=== PATIENT | male | born 1940 | race Native Hawaiian/Other Pacific Islander ===

== ENCOUNTER 2016-10-08 17:56 | Inpatient (IN) | payer MEDICARE, OTHER ==
[2016-10-08] MEDS ORDERED: Sodium Chloride 0.9% 500 ML IV STA ×2 (18:26→19:37)
[2016-10-08 19:05] LABS: VENOUS BLOOD GAS BASE EXCESS -4.4 mmol/L (0.0-2.0)
[2016-10-08 19:08] LABS: BASO # 0.1 K/uL (0.0-0.2); BASO % 0.4 % (0.0-2.0); EOS % 0.1 % (0.0-4.0); HEMATOCRIT 39.7 % (35.0-51.0); LYMPH # 1.2 K/uL (1.0-4.3); LYMPH % 4.1 % (20.0-40.0); MEAN CELL VOLUME 85.1 fl (80.0-94.0); MONO # 1.4 K/uL (0.0-0.8); MONO % 4.6 % (0.0-10.0); NEUT # 27.6 K/uL (1.8-7.0); NEUT % 90.8 % (50.0-75.0); PLATELET COUNT 234 K/uL (130-400); RED CELL DISTRIBUTION WIDTH 14.8 % (11.5-14.5); WHITE BLOOD COUNT 30.4 K/uL (4.8-10.8)
[2016-10-08] MEDS ORDERED: Digoxin 500 mcg/2ml (0.5 mg/2ml) Inj IVP ONE (19:13)
[2016-10-08 19:27] LABS: BILIRUBIN,TOTAL 1.1 mg/dl (0.2-1.3); CALCIUM 9.6 mg/dL (8.4-10.2); MAGNESIUM 1.5 MG/DL (1.6-2.3); PHOSPHOROUS 3.6 mg/dl (2.5-4.5); POTASSIUM 4.2 MMOL/L (3.6-5.0)
[2016-10-08] MEDS ORDERED: Digoxin 500 mcg/2ml (0.5 mg/2ml) Inj ONE (19:28)
[2016-10-08] MEDS ORDERED: Piperacillin/Tazobact 3.375 GM in Sodium Chloride 0.9% 100 ML IV STA (19:36)
[2016-10-08 19:42] LABS: TROPONIN I 0.047 ng/mL (0.00-0.120)
[2016-10-08 19:46] LABS: PARTIAL THROMBOPLASTIN TIME 29.7 Seconds (25.6-37.1)
[2016-10-08 20:01] LABS: RBC URINE 21 /hpf (0-3); URINE BACTERIA RARE (<OCC); URINE BILIRUBIN NEGATIVE (NEGATIVE); URINE BLOOD MODERATE (NEGATIVE); URINE COLOR YELLOW (YELLOW); URINE GLUCOSE (UA) NEG (Normal); URINE KETONE NEGATIVE (NEGATIVE); URINE LEUKOCYTE ESTERASE LARGE Leu/uL (Negative); URINE PROTEIN 30 mg/dL (NEGATIVE); URINE UROBILINOGEN 0.2-1.0 mg/dL (0.2-1.0); WBC URINE 155 /hpf (0-5)
--- NOTE | 2016-10-08 20:24 | ED PDOC ---
HPI: Abdomen Time Seen by Provider: 10/08/16 18:17 Chief Complaint (Nursing): Abdominal Pain Chief Complaint (Provider): Abdominal Pain History Per: Patient History/Exam Limitations: no limitations Onset/Duration Of Symptoms: Days (x2) Additional Complaint(s): Julio Jackson is a 76 year old male who presents to the emergency department with a complaint of abdominal pain associated with distention, decreased appetite, constipation, sweats, malaise, fatigue, lightheadedness, and shortness of breath ongoing for 2 days. Denied any nausea, vomiting, diarrhea, chest pain, dysuria, or hematuria. PMD: Guillermo Onofre MD Past Medical History Reviewed: Historical Data, Nursing Documentation, Vital Signs Vital Signs: Last Vital Signs Temp 97.7 F 10/08/16 23:18 Pulse 70 10/08/16 23:18 Resp 18 10/08/16 23:18 BP 106/54 L 10/08/16 23:18 Pulse Ox 99 10/08/16 23:18 - Medical History PMH: Atrial Fibrillation, CAD, Diabetes, HTN, Hypercholesterolemia ( hyperlipidemia), Hyperlipidemia, Pneumonia (recently diagnosed) Denies: Chronic Kidney Disease - Surgical History Surgical History: CABG - Family History Family History: States: Unknown Family Hx - Social History Current smoker - smoking cessation education provided: Yes Alcohol: None Drugs: Denies - Immunization History Hx Tetanus Toxoid Vaccination: No - Home Medications Home Medications: Ambulatory Orders Medication Instructions Recorded Aspirin [Lo-Dose Aspirin EC] 81 mg PO 10/08/16 Atorvastatin [Lipitor] 10 mg PO DAILY 10/08/16 Cholecalciferol (Vitamin D3) 400 units PO DAILY 10/08/16 [Vitamin D-400] Enalapril Maleate [Vasotec] 5 mg PO DAILY 10/08/16 Glimepiride [amaRYL] 2 mg PO DAILY 10/08/16 Multivitamin [Multivitamins] 1 tab PO DAILY 10/08/16 - Allergies Allergies/Adverse Reactions: Allergies Allergy/AdvReac Type Severity Reaction Status Date / Time azithromycin Allergy ITCHING Verified 10/08/16 18:10 moxifloxacin [From Avelox] Allergy ITCHING Verified 10/08/16 18:10 Review of Systems ROS Statement: Except As Marked, All Systems Reviewed And Found Negative (and as per HPI) Constitutional: Positive for: Sweats, Malaise, Other (fatigue) Cardiovascular: Negative for: Chest Pain Respiratory: Positive for: Shortness of Breath Gastrointestinal: Positive for: Abdominal Pain (with distention), Constipation ( chronic condition), Other (decreased appetite). Negative for: Nausea, Vomiting , Diarrhea Genitourinary Male: Negative for: Dysuria, Hematuria Neurological: Positive for: Other (lightheaded) Physical Exam - Physical Exam Appears: Positive for: Non-toxic, In Acute Distress Head Exam: Positive for: ATRAUMATIC, NORMOCEPHALIC Skin: Positive for: Warm, Dry Eye Exam: Positive for: EOMI, PERRL ENT: Positive for: Other (dry muc membranes) Neck: Positive for: Painless ROM, Supple Cardiovascular/Chest: Positive for: Tachycardia. Negative for: Edema, Murmur Respiratory: Positive for: Normal Breath Sounds. Negative for: Respiratory Distress Gastrointestinal/Abdominal: Positive for: Bowel Sounds (hypoactive), Soft, Tenderness (diffuse). Negative for: Mass, Distended, Guarding, Rebound Back: Positive for: L CVA Tenderness, R CVA Tenderness. Negative for: Muscle Spasm Extremity: Positive for: Normal ROM. Negative for: Deformity Lymphatic: Negative for: Adenopathy Neurologic/Psych: Positive for: Alert. Negative for: Motor/Sensory Deficits - Laboratory Results Result Diagrams: 10/08/16 18:58 10/08/16 18:58 - ECG O2 Sat by Pulse Oximetry: 97 (RA) Pulse Ox Interpretation: Normal - Progress Re-evaluation Time: 22:49 Condition: Improving,but remains with symptoms - Critical Care Total Time (In Min): 30 Documented Critical Care: Time excludes all time spent performint seperately billable procedures Medical Decision Making Medical Decision Making: Initial Impression: Abdominal pain; Fever; Atrial flutter Differential diagnosis: Mesenteric ischemia; pancreatitis; bowel obstruction; colitis; sepsis; dehydration Initial Plan: * VBG * CT ABD/Pelvis with IV contrast * CT ABD/Pelvis without contrast * EKG * Labs * CXR * Tylenol 975mg PO * Lanoxin 0.5mg IVP * Motrin 600mg PO * NS 500ml IV per 500mls/hr * Zosyn 100ml IV * Blood culture * Urine culture * Xray ABD * Re-evaluation Time: 1850 --Discussed case with Dr. Onofre who advised Digoxin for rate control and pt will be admitted to hospital pending ED workup. Labs demonstrate leukocytosis with bandemia, elevation in creatinine. Lactic acid wnl. UA c/w UTI. Antibiotics ordered Time: 2037 CT Abd/Pelvis FINDINGS: LIMITATIONS: Mild to moderate streak/motion artifact. LOWER THORAX: Multiple ill-defined nodular densities of varying sizes are seen in the right lung base. Findings are suspicious for a multinodular type pneumonia/infiltrate, however, recommend followup to document clearing. Mild cardiomegaly. Coronary artery calcification. ABDOMEN: LIVER: No acute abnormality of the liver identified. GALLBLADDER AND BILE DUCTS: Biliary ductal dilatation, with the common bile duct measuring up to 9 mm in diameter. No cause for this finding is seen by CT. Recommend correlation with LFTs for laboratory evidence of biliary obstruction. Cholelithiasis. Multiple stones are seen in the gallbladder neck. No CT evidence of acute cholecystitis. PANCREAS: No CT evidence of acute pancreatitis. SPLEEN: No acute abnormality of the spleen identified. ADRENALS: No acute abnormality of the adrenal glands identified. KIDNEYS AND URETERS: Mild right hydroureteronephrosis. There is also right perinephric fluid, moderate in amount. No causative obstructing stone is seen. Surgical clip is noted in the right kidney. No obstructing ureteral or UVJ stones are visualized. STOMACH AND BOWEL: Duodenal diverticulum noted. Scattered colonic diverticulosis, without evidence of diverticulitis. Otherwise, no significant abnormality of the bowel is identified. No evidence of bowel obstruction. APPENDIX: Appendix is seen, and is within normal limits in appearance. PELVIS: BLADDER: Mild thickening of the bladder wall. REPRODUCTIVE: Enlarged prostate gland, which indents the base of the bladder. ABDOMEN and PELVIS: INTRAPERITONEAL SPACE: No evidence of free intraperitoneal air or fluid. BONES/JOINTS: Bony structures appear demineralized. SOFT TISSUES: No acute abnormality of the visualized soft tissues is seen. VASCULATURE: Linear calcifications are seen in the lumen of the abdominal aorta, which are most likely secondary to either calcified mural thrombus or a chronic, calcified aortic dissection. No evidence of aortic rupture or periaortic hemorrhage. LYMPH NODES: No evidence of diffuse lymphadenopathy. IMPRESSION: -Findings in the right lung base suspicious for a multinodular type pneumonia. Followup is recommended to document clearing, and definitely rule out a neoplastic process. - Right perinephric fluid and hydroureteronephrosis, cause not identified. Findings could be secondary to a recently passed stone. A right sided urinary tract infection could also have this appearance. There is also bladder wall thickening, a nonspecific finding, but can be seen with cystitis. Recommend clinical correlation. -Biliary ductal dilatation, with the common bile duct measuring up to 9 mm in diameter. No cause for this finding is seen by CT. Recommend correlation with LFTs for laboratory evidence of biliary obstruction. Previous xray also demonstrated abnormalities in RIGHT lung field. DW pt and family findings and plan of care. Addn'l US ordered since pt has h/o gallstones. DW Dr Onofre again for hospitalization. Orders given to JACQUI Boone Repeat EKG demonstrates NSR at 72 Time: 2207 --US ABD FINDINGS: Gallbladder: Contains extensive shadowing gallstones, which were reportedly mobile on real time, as well as sludge. No significant gallbladder wall thickening noted. No evidence of pericholecystic fluid. Reportedly negative sonographic Lassiter's sign. Common bile duct: Abnormally dilated, measuring up to 9 mm in diameter. No common bile duct stones are visualized. Liver: Within normal limits in appearance. Normal flow seen in the main portal vein on color imaging. Measures 13 cm in length. Pancreas: Incompletely seen due to gas. Imaged portions appear unremarkable. Right kidney: Within normal limits in appearance. Measures 10.7 cm in length. No evidence of hydronephrosis. IMPRESSION: Mild dilatation of the common bile duct, cause not identified. Gallstones. No sonographic evidence of acute cholecystitis. See above for remaining findings On reeval pt feeling a little better and eager to eat. Scribe Attestation: Documented by Magda Garland, acting as a scribe for Margaret Jarvis MD. Provider Scribe Attestation: All medical record entries made by the Scribe were at my direction and personally dictated by me. I have reviewed the chart and agree that the record accurately reflects my personal performance of the history, physical exam, medical decision making, and the department course for this patient. I have also personally directed, reviewed, and agree with the discharge instructions and disposition. Disposition - Clinical Impression Clinical Impression: Atrial flutter, Pyelonephritis, Sepsis Counseled Patient/Family Regarding: Studies Performed, Diagnosis - Disposition Disposition Time: 21:00 Condition: FAIR - Pt Status Changed To: Hospital Disposition Of: Inpatient - Admit Certification Admit to Inpatient:: After my assessment, the patient will require hospitalization for at least two midnights. This is because of the severity of symptoms shown, intensity of services needed, and/or the medical risk in this patient being treated as an outpatient. - POA Present On Arrival: None
--- NOTE | 2016-10-08 20:39 | CT ---
EXAM: CT Abdomen and Pelvis Without Intravenous Contrast EXAM DATE/TIME: 10/08/2016 7:49 PM CLINICAL HISTORY: 76 years old, male; Pain; Abdominal pain; Generalized; Patient HX: Gallstones; Additional info: Abd pain leukocytosis dehydration afib TECHNIQUE: Axial computed tomography images of the abdomen and pelvis without intravenous contrast. All CT scans at this facility use one or more dose reduction techniques, viz.: automated exposure control; ma/kV adjustment per patient size (including targeted exams where dose is matched to indication; i.e. head); or iterative reconstruction technique. Coronal and sagittal reformatted images were created and reviewed. COMPARISON: No relevant prior studies available. FINDINGS: LIMITATIONS: Mild to moderate streak/motion artifact. LOWER THORAX: Multiple ill-defined nodular densities of varying sizes are seen in the right lung base. Findings are suspicious for a multinodular type pneumonia/infiltrate, however, recommend followup to document clearing. Mild cardiomegaly. Coronary artery calcification. ABDOMEN: LIVER: No acute abnormality of the liver identified. GALLBLADDER AND BILE DUCTS: Biliary ductal dilatation, with the common bile duct measuring up to 9 mm in diameter. No cause for this finding is seen by CT. Recommend correlation with LFTs for laboratory evidence of biliary obstruction. Cholelithiasis. Multiple stones are seen in the gallbladder neck. No CT evidence of acute cholecystitis. PANCREAS: No CT evidence of acute pancreatitis. SPLEEN: No acute abnormality of the spleen identified. ADRENALS: No acute abnormality of the adrenal glands identified. KIDNEYS AND URETERS: Mild right hydroureteronephrosis. There is also right perinephric fluid, moderate in amount. No causative obstructing stone is seen. Surgical clip is noted in the right kidney. No obstructing ureteral or UVJ stones are visualized. STOMACH AND BOWEL: Duodenal diverticulum noted. Scattered colonic diverticulosis, without evidence of diverticulitis. Otherwise, no significant abnormality of the bowel is identified. No evidence of bowel obstruction. APPENDIX: Appendix is seen, and is within normal limits in appearance. PELVIS: BLADDER: Mild thickening of the bladder wall. REPRODUCTIVE: Enlarged prostate gland, which indents the base of the bladder. ABDOMEN and PELVIS: INTRAPERITONEAL SPACE: No evidence of free intraperitoneal air or fluid. BONES/JOINTS: Bony structures appear demineralized. SOFT TISSUES: No acute abnormality of the visualized soft tissues is seen. VASCULATURE: Linear calcifications are seen in the lumen of the abdominal aorta, which are most likely secondary to either calcified mural thrombus or a chronic, calcified aortic dissection. No evidence of aortic rupture or periaortic hemorrhage. LYMPH NODES: No evidence of diffuse lymphadenopathy. IMPRESSION: - Findings in the right lung base suspicious for a multinodular type pneumonia. Followup is recommended to document clearing, and definitely rule out a neoplastic process. - Right perinephric fluid and hydroureteronephrosis, cause not identified. Findings could be secondary to a recently passed stone. A right sided urinary tract infection could also have this appearance. There is also bladder wall thickening, a nonspecific finding, but can be seen with cystitis. Recommend clinical correlation. - Biliary ductal dilatation, with the common bile duct measuring up to 9 mm in diameter. No cause for this finding is seen by CT. Recommend correlation with LFTs for laboratory evidence of biliary obstruction. - See above for remaining findings.
[2016-10-08 20:41] LABS: BASOPHIL 1 % (0-2); NEUTROPHIL 78 % (42-75); TOTAL CELLS COUNTED 100
--- NOTE | 2016-10-08 22:08 | US ---
EXAM: US Abdomen Limited, Right Upper Quadrant EXAM DATE/TIME: 10/08/2016 8:47 PM CLINICAL HISTORY: 76 years old, male; Pain; Abdominal pain; Epigastric; Additional info: Cbd dilatation fever abd pain TECHNIQUE: Real-time ultrasound of the right upper quadrant with image documentation. COMPARISON: Recent abdominal CT. FINDINGS: Gallbladder: Contains extensive shadowing gallstones, which were reportedly mobile on real time, as well as sludge. No significant gallbladder wall thickening noted. No evidence of pericholecystic fluid. Reportedly negative sonographic Lassiter's sign. Common bile duct: Abnormally dilated, measuring up to 9 mm in diameter. No common bile duct stones are visualized. Liver: Within normal limits in appearance. Normal flow seen in the main portal vein on color imaging. Measures 13 cm in length. Pancreas: Incompletely seen due to gas. Imaged portions appear unremarkable. Right kidney: Within normal limits in appearance. Measures 10.7 cm in length. No evidence of hydronephrosis. IMPRESSION: Mild dilatation of the common bile duct, cause not identified. Gallstones. No sonographic evidence of acute cholecystitis. See above for remaining findings.
[2016-10-08 22:26] LABS: VENOUS BLOOD GAS PCO2 28 mmHg (40-60); VENOUS BLOOD PH 7.43 (7.32-7.43)
[2016-10-09] MEDS: Sodium Chloride 0.9% 500 ML IV SCH ×3 (02:28→23:31)
[2016-10-09 07:22] LABS: BASO % 0.1 % (0.0-2.0); EOS % 0.1 % (0.0-4.0); HEMATOCRIT 38.1 % (35.0-51.0); LYMPH # 1.2 K/uL (1.0-4.3); LYMPH % 3.6 % (20.0-40.0); MEAN CELL VOLUME 86.8 fl (80.0-94.0); MEAN CORPUSCULAR HEMOGLOBIN 28.8 pg (27.0-31.0); MEAN CORPUSCULAR HGB CONC 33.2 g/dL (33.0-37.0); MEAN PLATELET VOLUME 7.3 fl (7.2-11.7); MONO # 0.8 K/uL (0.0-0.8); MONO % 2.4 % (0.0-10.0); NEUT # 31.4 K/uL (1.8-7.0); NEUT % 93.8 % (50.0-75.0); PLATELET COUNT 191 K/uL (130-400); WHITE BLOOD COUNT 33.4 K/uL (4.8-10.8)
[2016-10-09 07:32] LABS: BILIRUBIN,TOTAL 1.5 mg/dl (0.2-1.3); CALCIUM 8.7 mg/dL (8.4-10.2); POTASSIUM 4.1 MMOL/L (3.6-5.0); TOTAL PROTEIN 7.1 G/DL (6.3-8.2)
[2016-10-09 08:03] LABS: NEUTROPHIL 84 % (42-75); TOTAL CELLS COUNTED 100
[2016-10-09] MEDS ORDERED: Patient's Own Med (Multivitamin [Multivitamins] 1 TAB) PO SCH (09:00)
--- NOTE | 2016-10-09 09:18 | CP.PCM.HP ---
History of Present Illness - History of Present Illness History of Present Illness: This 76-year-old man with known coronary artery disease who had coronary bypass graft surgery more than 15 years back following a myocardial infarction was hospitalized yesterday when he came to the emergency room complaining of profuse perspiration and severe abdominal and lower back pain. He denies any chills or dysuria. He has a history of COPD because of a long history of cigarette use in the past and the patient has had recurrent bouts of bronchitis and was hospitalized here and a half back with pneumonia. The patient is a diabetic and hypertensive as well. A stress test approximately a year back did not show any evidence of potentially ischemic myocardium. The patient has never experienced congestive cardiac failure. The patient had had a bout of atrial fibrillation during his hospitalization for pneumonia year and a half back. Subsequently he has maintained sinus rhythm. Physical examination shows a elderly thin built man who is quite alert of a concordant. He is afebrile. His pulse rate was 70 bpm and regular. His blood pressure was 146/70 mmHg. His jugular venous pressure was not elevated there was no pedal edema. His pedal pulses were feeble. There were no carotid bruits. His extremities are warm, his nailbeds were pink. There was no central or peripheral cyanosis. There was no clubbing. There was a severe right knee deformity because of a childhood injury. A scar of sternotomy was evident on his chest. The apex was not palpable. The first and second heart sounds were normal. There was a brief apical systolic murmur. There was no gallop rhythm. There were no rales. His abdomen was soft. Vague tenderness was described. There was no guarding or rigidity. There was no mass. There was no right hypochondrial tenderness. The patient described a vague sense of pain in both renal angles. There was no suprapubic tenderness. His electrocardiogram in the emergency showed atrial flutter with 2 to one conduction and a heart rate of 155 bpm. There was evidence of a right bundle branch block. There were ST-T changes due to right bundle branch block. His lab data showed significant leukocytosis with high neutrophil count. His BUN and creatinine were elevated. His potassium level was normal. A CT scan of the abdomen showed dilated biliary ducts but no evidence of biliary obstruction was evident there were multiple gallstones in gallbladder. There was evidence of perinephric inflammation on the right side with possible hydronephrosis on the right side. No renal calculus was evident in the urinary tract. The bladder wall appeared thickened suggestive of possible chronic inflammation. Impression: Urosepsis. With transient atrial flutter. Stable coronary artery disease with status post coronary bypass graft surgery and prior myocardial infarction. Diabetes mellitus. COPD. Acute kidney injury. Urine and blood cultures have been sent and the results are awaited. An ID evaluation has been requested and will be carried out today. The patient has seen a urologist on a regular basis and the last visit 3 months back did not show any evidence of enlarged prostate. His CBC and complete metabolic profile will be monitored to see if his leukocytosis resolves and his as ischemia also resolves. The patient at this juncture is afebrile and hemodynamically stable thank you I have discussed his case at length with his daughter who is at bedside. Present on Admission - Present on Admission Any Indicators Present on Admission: No Past Patient History - Past Medical History & Family History Past Medical History?: Yes - Past Social History Smoking Status: Former Smoker - CARDIAC Hx Cardiac Disorders: Yes - PULMONARY Hx Respiratory Disorders: Yes - NEUROLOGICAL Hx Neurological Disorder: No - HEENT Hx HEENT Problems: Yes - RENAL Hx Chronic Kidney Disease: No - ENDOCRINE/METABOLIC Hx Endocrine Disorders: Yes - HEMATOLOGICAL/ONCOLOGICAL Hx Blood Disorders: No - INTEGUMENTARY Hx Dermatological Problems: No - MUSCULOSKELETAL/RHEUMATOLOGICAL Hx Musculoskeletal Disorders: Yes - GASTROINTESTINAL Hx Gastrointestinal Disorders: No - GENITOURINARY/GYNECOLOGICAL Hx Genitourinary Disorders: No - PSYCHIATRIC Hx Psychophysiologic Disorder: No - SURGICAL HISTORY Hx Coronary Artery Bypass Graft: Yes - ANESTHESIA Hx Anesthesia: Yes Hx Anesthesia Reactions: No Hx Malignant Hyperthermia: No Meds Allergies/Adverse Reactions: Allergies Allergy/AdvReac Type Severity Reaction Status Date / Time azithromycin Allergy ITCHING Verified 10/08/16 18:10 moxifloxacin [From Avelox] Allergy ITCHING Verified 10/08/16 18:10 Results - Vital Signs Recent Vital Signs: Last Vital Signs Temp 98.4 F 10/09/16 08:52 Pulse 69 10/09/16 08:52 Resp 18 10/09/16 08:52 BP 152/68 H 10/09/16 08:52 Pulse Ox 100 10/09/16 08:52 - Labs Result Diagrams: 10/09/16 06:55 10/09/16 06:55 Labs: Laboratory Results - last 24 hr 10/09/16 10/09/16 10/09/16 06:03 06:55 06:55 WBC 33.4 H RBC 4.39 L Hgb 12.6 Hct 38.1 MCV 86.8 MCH 28.8 MCHC 33.2 RDW 15.0 H Plt Count 191 MPV 7.3 Neut % (Auto) 93.8 H Lymph % (Auto) 3.6 L Travis % (Auto) 2.4 Eos % (Auto) 0.1 Baso % (Auto) 0.1 Neut # 31.4 H Lymph # 1.2 Travis # 0.8 Eos # 0.0 Baso # 0.0 Neutrophils % (Manual) 84 H Band Neutrophils % 8 H Lymphocytes % (Manual) 5 L Monocytes % (Manual) 3 Platelet Estimate Normal Sodium 135 Potassium 4.1 Chloride 104 Carbon Dioxide 20 L Anion Gap 15 BUN 21 H Creatinine 1.7 H Est GFR ( Amer) 47 Est GFR (Non-Af Amer) 39 POC Glucose (mg/dL) 102 Random Glucose 95 Calcium 8.7 Total Bilirubin 1.5 H AST 31 ALT 34 Alkaline Phosphatase 84 Total Protein 7.1 Albumin 3.5 Globulin 3.5 Albumin/Globulin Ratio 1.0
[2016-10-09] MEDS: Cholecalciferol 400 Intl Units Tab PO SCH (09:50)
[2016-10-09] MEDS: GlipiZIDE 5 mg SR Tab PO SCH (09:50)
[2016-10-09] MEDS: Multivitamin With Minerals Tab PO SCH (09:50)
[2016-10-09] MEDS: Enoxaparin 30 mg Syringe SC SCH (09:58)
[2016-10-09] MEDS: SlowMag 1 TAB PO SCH (09:58)
--- NOTE | 2016-10-09 10:17 | RAD ---
HISTORY: Sepsis Patient COMPARISON: 01/18/2015 FINDINGS: LUNGS: There is mild pulmonary venous congestion. No focal consolidation. PLEURA: No significant pleural effusion identified, no pneumothorax apparent. CARDIOVASCULAR: The heart is normal in size. There is prominent central vasculature. Status post CABG. OSSEOUS STRUCTURES: No significant abnormalities. VISUALIZED UPPER ABDOMEN: Normal. OTHER FINDINGS: None. IMPRESSION: No active pulmonary disease.
--- NOTE | 2016-10-09 10:32 | CARD ---
APPROVED REPORT EKG Measurement Heart [id number] ID [id number] <Conclusion> Atrial flutter with 2:1 AV conduction Right bundle branch block Abnormal ECG
--- NOTE | 2016-10-09 10:54 | RAD ---
HISTORY: Abdominal pain COMPARISON: No prior. FINDINGS: BOWEL: The bowel gas pattern is nonspecific. There is no bowel dilatation. BONES: There are multilevel degenerative changes in the spine. OTHER FINDINGS: None. IMPRESSION: Nonobstructive bowel-gas pattern.
[2016-10-09] MEDS ORDERED: Clindamycin 600 MG in Sodium Chloride 0.9% 100 ML IVPB STA (13:06)
[2016-10-09] MEDS ORDERED: Clindamycin 600 MG in Sodium Chloride 0.9% 100 ML IVPB SCH (21:00)
[2016-10-09] MEDS: metroNIDAZOLE 500mg/100ml NS 100 ML IVPB SCH (21:13)
[2016-10-10] MEDS: metroNIDAZOLE 500mg/100ml NS 100 ML IVPB SCH ×4 (02:02→22:55)
--- NOTE | 2016-10-10 02:36 | CON ---
INFECTIOUS DISEASE CONSULTATION HISTORY OF PRESENT ILLNESS: The patient is a 76-year-old male, who presented to the emergency room with abdominal pain, which was accompanied by decreased appetite, constipation, sweats, malaise and shaking chills. Most of the history was taken from the daughter who also stated that he had been having some shortness of breath. On the ER record, I noted no history of chills, but the daughter did tell me he was doing some shaking along with the pain, whether it was due to fever or pain I am not sure. He has a history of COPD and was a heavy smoker in the past and had recurrent bouts of bronchitis, has previous history of pneumonia. The patient also with a history of coronary artery disease and had coronary artery bypass surgery more than 15 years ago. He is diabetic and hypertensive as well. He had recent stress test which was essentially within normal limits. PHYSICAL EXAMINATION: GENERAL: The patient is alert, cooperative and oriented to time and place, complained to me that he was unable to sleep by his daughter and also he has had multiple bouts of diarrhea since he has been in the hospital. HEENT: Within normal limits. NECK: Supple. LUNGS: There was some rhonchi at the left base. ABDOMEN: Soft, but he said there was tenderness upon pressure in both the right and left lower quadrant. He had some CVA tenderness both on the right and left. LABORATORY DATA: He had a white count one being 30.4 and one 33.4, hemoglobin of 12.6 and platelet count of 234 and 191. Of note, he has a marked shift to the left with 93.8 polys and he also has 6 bands and 8 bands * His creatinine is 1.7. His GFR is 39. Blood sugar last one is 117, bilirubin 1.5 and has normal liver function test. Troponin is elevated. CT scan of the abdomen and pelvis showed findings in the right lung base suspicious for a multinodular-type pneumonia and follow up is recommended to document clearly and definitely rule out a neoplastic process. There is a right perinephric fluid and hydronephrosis, cause not identified. Findings could be secondary to a recently passed stone. A right-sided urinary tract infection could also have this appearance. Bladder wall was noted and it may be cystitis, biliary ductal dilatation, but no gross finding could be seen on CT. At the present time, I think with the diagnoses are rule out pneumonia, rule out urosepsis, possible pyelonephritis, few of the white count and the bands. At this moment, we will treat the patient with antibiotics and Zosyn in an adjusted renal dose, Flagyl 500 mg IV piggyback q. 8 and Maxipime 1 g q. 24. I have scheduled all antibiotics to be given tonight. I feel that tomorrow we will reevaluate the renal function and decide about if there needs to be any change in antibiotics after review of the cultures. Nick Lawrence MD MTDD
[2016-10-10] MEDS ORDERED: Metoprolol 1 mg/ml Inj IVP STA ×2 (03:44→18:04)
[2016-10-10] MEDS ORDERED: Metoprolol 1 mg/ml Inj IVP ONE ×2 (03:47→18:02)
[2016-10-10 06:59] LABS: HEMATOCRIT 37.3 % (35.0-51.0); MEAN CELL VOLUME 86.3 fl (80.0-94.0); MEAN CORPUSCULAR HEMOGLOBIN 28.4 pg (27.0-31.0); MEAN CORPUSCULAR HGB CONC 32.9 g/dL (33.0-37.0); RED CELL DISTRIBUTION WIDTH 14.9 % (11.5-14.5); WHITE BLOOD COUNT 29.9 K/uL (4.8-10.8)
[2016-10-10 07:09] LABS: ALB/GLOB RATIO 0.9 (1.0-2.1); BILIRUBIN,TOTAL 1.3 mg/dl (0.2-1.3); CALCIUM 8.2 mg/dL (8.4-10.2); POTASSIUM 3.8 MMOL/L (3.6-5.0); TOTAL PROTEIN 7.2 G/DL (6.3-8.2)
[2016-10-10] MEDS ORDERED: Digoxin 500 mcg/2ml (0.5 mg/2ml) Inj IVP ONE ×2 (08:45→14:45)
[2016-10-10] MEDS: Cholecalciferol 400 Intl Units Tab PO SCH (08:53)
[2016-10-10] MEDS: SlowMag 1 TAB PO SCH (08:53)
[2016-10-10] MEDS: Enoxaparin 30 mg Syringe SC SCH (08:53)
[2016-10-10] MEDS: Multivitamin With Minerals Tab PO SCH (08:53)
[2016-10-10] MEDS: GlipiZIDE 5 mg SR Tab PO SCH (08:53)
[2016-10-10] MEDS: Sodium Chloride 0.9% 500 ML IV SCH ×3 (08:54→22:56)
--- NOTE | 2016-10-10 08:56 | CP.PCM.PN ---
Subjective - Date & Time of Evaluation Date of Evaluation: 10/10/16 Time of Evaluation: 08:40 - Subjective Subjective: Spiked temp last evening Hallucinated during night (? due to fever/?due to Ambien) Developed flutter/fib last night This AM shows periods of sinus rhythm for 4-6 beats then return to Afib Has had diarrhoea with dark (?) stools Abd pain less Labs show resolving leucocytosis Resolving azotemia Blood and urine cultures still awaited Dig given for A Fib On IV fluids forfluid loss IV ABx as ordered by ID Spoke with family at length Objective - Vital Signs/Intake and Output Vital Signs (last 24 hours): Temp Pulse Resp BP Pulse Ox 98.6 F 118 H 18 112/70 97 10/10/16 08:09 10/10/16 08:09 10/10/16 08:09 10/10/16 08:09 10/10/16 08:09 Intake and Output: 10/10/16 10/10/16 06:59 18:59 Intake Total 1400 Balance 1400 - Medications Medications: Current Medications Acetaminophen (Tylenol 325mg Tab) 325 mg PO Q6 PRN PRN Reason: fever Last Admin: 10/09/16 17:24 Dose: 325 mg Atorvastatin Calcium (Lipitor) 10 mg PO DAILY [facility] Last Admin: 10/09/16 09:50 Dose: 10 mg Enalapril Maleate (Vasotec) 5 mg PO DAILY [facility] Last Admin: 10/09/16 09:50 Dose: 5 mg Enoxaparin Sodium (Lovenox) 30 mg SC DAILY [facility] PRN Reason: Protocol Last Admin: 10/09/16 09:58 Dose: 30 mg Glipizide (Glucotrol Xl) 5 mg PO BRK [facility] Last Admin: 10/09/16 09:50 Dose: 5 mg Piperacillin Sod/Tazobactam (Sod 2.25 gm/ Sodium Chloride) 100 mls @ 100 mls/ hr IVPB Q8 [facility] Last Admin: 10/10/16 00:28 Dose: 100 mls/hr Cefepime HCl 1 gm/ Sodium (Chloride) 100 mls @ 100 mls/hr IVPB DAILY [facility] Metronidazole (Flagyl 500mg/100ml Ns) 100 mls @ 100 mls/hr IVPB Q8@0500,1300, 2100 [facility] Last Admin: 10/10/16 05:43 Dose: 100 mls/hr Magnesium Chloride (Mag Delay 64mg) 1 tab PO DAILY [facility] Last Admin: 10/09/16 09:58 Dose: 1 tab Multivitamins/Minerals (Therapeutic-M Tab) 1 tab PO DAILY [facility] Last Admin: 10/09/16 09:50 Dose: 1 tab Ondansetron HCl (Zofran Inj) 4 mg IVP Q6 PRN PRN Reason: Nausea/Vomiting Vitamin D (Vitamin D 400 Intl Units Tab) 400 intlu PO DAILY [facility] Last Admin: 10/09/16 09:50 Dose: 400 intlu - Labs Labs: 10/10/16 05:40 10/10/16 05:40 PT 12.1 Seconds (9.8-13.1) 10/08/16 18:58 INR 1.2 (0.9-1.2) 10/08/16 18:58 APTT 29.7 Seconds (25.6-37.1) 10/08/16 18:58
[2016-10-10] MEDS ORDERED: Cefepime 1 GM in Sodium Chloride 0.9% 100 ML IVPB SCH (09:00)
[2016-10-10] MEDS: Cefepime 1 GM in Sodium Chloride 0.9% 100 ML IVPB SCH (11:38)
--- NOTE | 2016-10-10 11:41 | CARD ---
APPROVED REPORT EKG Measurement Heart [id number] <Conclusion> Sinus rhythm with Frequent APC's Right bundle branch block Abnormal ECG
--- NOTE | 2016-10-10 13:10 | PQF GENQUE ---
Dr. Nanette Onofre, (1) There is no ICD-10 code for Urosepsis: In agreement with ER MD listed diagnosis of Sepsis? if yes: (2) Etiology of Sepsis if known OR: Disagree OR:Other explanation of clinical finding ER MD note:Impression Atrial Flutter, Pyelonephritis, Sepsis H and P: Impression includes: Urosepsis ID consult: draft note: diagnoses are rule out pneumonia, rule out urosepsis, possible pyelonephritis, few of the white count and the bands. At this moment, we will treat the patient with antibiotics and Zosyn in an adjusted renal dose , Flagyl 500 mg IV piggyback q. 8 and Maxipime 1 g q. 24. I have scheduled all antibiotics to be given tonight. I feel that tomorrow we will reevaluate the renal function and decide about if there needs to be any change in antibiotic dosing as well as review of the cultures. 10/08: temp:101.8 and 10/09: temp max: 100.9 pulse:164 b/p:97/62 WBC:30.4->33.4->29.2 with a left shift: Bands:6->8 urine culture:prelim:Gram Negative Segun 10/09/:cxr report: Impression: No active disease This form is a permanent part of the medical record Clarification of your documentation is requested to better reflect the severity of illness and intensity of treatment of your patient. Indicators present [] Specify: [] [] Specify: [] [] Specify: [] [] Specify: [] Location in the medical record that reflects the above clinical findings: [] Treatment Provided: [] PHYSICIAN'S RESPONSE Sepsis/ Urinary Tract Infection Based on your medical judgment of the clinical indicators outlined above please clarify the following: [X] Practitioner response [] If unable to determine, please check the box, sign and date. Present On Admission (POA) Indicator: [X] Present at the time of admission [] Not present at the time of admission [] Clinically Undetermined In responding to this query, please exercise your independent professional judgment. The fact that a question is asked does not imply that any particular answer is desired or expected. Thank you for your clarification on this documentation. If you have any questions please call. * Thank you, Kenya Donohue RN BSN ext. #[phone] MTDD
--- NOTE | 2016-10-10 18:08 | PCM.RRTMUL ---
<Franco Bundy F - Last Filed: 10/10/16 18:05> POWER PLANT OPERATOR Nurse Assessment - Situation POWER PLANT OPERATOR Responder Arrival Time:: 13:00 POWER PLANT OPERATOR Reason for Call: Tachycardia POWER PLANT OPERATOR Called By: RN - IV IV Inserted during POWER PLANT OPERATOR?: No - Vital Signs Temperature:: 102.5 F - A) Initial Vital Signs: Blood Pressure: 102/70 Pulse Rate: 160 Respiratory Rate: 16 - B) Neurological Status (Select all that apply): Alert - C) Respiratory Oxygen Delivery Method: Room Air - Constitutional Appears: Well, No Acute Distress - Head Head Exam: ATRAUMATIC, NORMOCEPHALIC - Eyes Eye Exam: EOMI, PERRL - Respiratory Exam Respiratory Exam: Clear to Ausculation Bilateral - Cardiovascular Exam Cardiovascular Exam: +S1, +S2 - GI/Abdominal Exam GI & Abdominal Exam: Soft, Normal Bowel Sounds. absent: Tenderness - Neurological Exam Neurological Exam: Alert, Awake, Oriented x3 - Extremities Exam Extremities Exam: Full ROM Plan - A. End of POWER PLANT OPERATOR Vital Signs: Blood Pressure: 107/65 Pulse Rate: 103 Respiratory Rate: 16 O2 Sat by Pulse Oximetry: 98 - B. 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
[2016-10-10 18:37] LABS: CALCIUM 7.6 mg/dL (8.4-10.2); MAGNESIUM 1.8 MG/DL (1.6-2.3); POTASSIUM 3.2 MMOL/L (3.6-5.0)
[2016-10-10] MEDS: Sodium Chloride 0.9% 200 ML IV SCH ×2 (18:54→18:55)
[2016-10-10] MEDS ORDERED: Potassium Chloride 20 mEq ER Tab PO ONE (19:55)
[2016-10-10] MEDS ORDERED: Metoprolol Succinate 50 mg XL Tab PO SCH (20:00)
[2016-10-11] MEDS: metroNIDAZOLE 500mg/100ml NS 100 ML IVPB SCH ×2 (05:08→12:20)
[2016-10-11] MEDS: Sodium Chloride 0.9% 500 ML IV SCH ×3 (05:41→21:15)
[2016-10-11] MEDS ORDERED: Metoprolol Succinate 50 mg XL Tab PO SCH ×2 (06:00→09:00)
[2016-10-11 06:41] LABS: BASO % 0.1 % (0.0-2.0); EOS # 0.1 K/uL (0.0-0.7); EOS % 0.3 % (0.0-4.0); HEMATOCRIT 34.1 % (35.0-51.0); LYMPH % 4.3 % (20.0-40.0); MEAN CELL VOLUME 84.6 fl (80.0-94.0); MEAN CORPUSCULAR HEMOGLOBIN 28.7 pg (27.0-31.0); MEAN CORPUSCULAR HGB CONC 33.9 g/dL (33.0-37.0); MEAN PLATELET VOLUME 7.5 fl (7.2-11.7); MONO # 0.9 K/uL (0.0-0.8); MONO % 3.9 % (0.0-10.0); NEUT # 20.2 K/uL (1.8-7.0); NEUT % 91.4 % (50.0-75.0); PLATELET COUNT 183 K/uL (130-400); RED CELL DISTRIBUTION WIDTH 14.8 % (11.5-14.5); WHITE BLOOD COUNT 22.1 K/uL (4.8-10.8)
[2016-10-11 06:53] LABS: ALB/GLOB RATIO 0.9 (1.0-2.1); BILIRUBIN,TOTAL 0.9 mg/dl (0.2-1.3); CALCIUM 7.6 mg/dL (8.4-10.2); POTASSIUM 3.1 MMOL/L (3.6-5.0); TOTAL PROTEIN 6.5 G/DL (6.3-8.2)
--- NOTE | 2016-10-11 08:02 | CARD ---
APPROVED REPORT EKG Measurement Heart [id number] <Conclusion> Atrial flutter with variable AV block Right bundle branch block Abnormal ECG
[2016-10-11] MEDS: Cefepime 1 GM in Sodium Chloride 0.9% 100 ML IVPB SCH (08:17)
[2016-10-11] MEDS: Enoxaparin 30 mg Syringe SC SCH (08:18)
[2016-10-11] MEDS: GlipiZIDE 5 mg SR Tab PO SCH (08:19)
[2016-10-11] MEDS: SlowMag 1 TAB PO SCH (08:19)
[2016-10-11] MEDS: Multivitamin With Minerals Tab PO SCH (08:19)
[2016-10-11] MEDS: Cholecalciferol 400 Intl Units Tab PO SCH (08:19)
[2016-10-11 09:42] LABS: NEUTROPHIL 89 % (42-75); TOTAL CELLS COUNTED 100
[2016-10-11 09:43] LABS: LARGE PLATELETS PRESENT
--- NOTE | 2016-10-11 10:47 | CP.PCM.PN ---
Subjective - Date & Time of Evaluation Date of Evaluation: 10/11/16 Time of Evaluation: 09:20 - Subjective Subjective: Spiked temp >102 degrees last night Still C/O abd discomfort and anorexia and nausea Has had frequent unformed stool (_ve for C def/+ve for OB) No norman or bloody stool Had another bout of flutter/fib (Now on metoprolol) Now sinus rhythm at 80 BPM BP 140/70 mm Hg No signs of CHF Abd soft, mild gen tenderness, no guarding Labs show resolving leucocytosis (29.9 to 22.1) Hb/HCT stable Azotemia resolving (creatinin 1.7 to 1.5 mg) K+ 3.1 mEq?L Discussed with Dr. Lawrence (ABx has been adjusted) Spoke with Pt' daughter Objective - Vital Signs/Intake and Output Vital Signs (last 24 hours): Temp Pulse Resp BP Pulse Ox 97.9 F 86 18 165/66 H 99 10/11/16 08:03 10/11/16 08:03 10/11/16 08:03 10/11/16 08:03 10/11/16 08:03 - Medications Medications: Current Medications Acetaminophen (Tylenol 325mg Tab) 325 mg PO Q6 PRN PRN Reason: fever Last Admin: 10/10/16 16:30 Dose: 325 mg Atorvastatin Calcium (Lipitor) 10 mg PO DAILY [facility] Last Admin: 10/11/16 08:20 Dose: 10 mg Enalapril Maleate (Vasotec) 5 mg PO DAILY [facility] Last Admin: 10/11/16 08:19 Dose: 5 mg Enoxaparin Sodium (Lovenox) 30 mg SC DAILY [facility] PRN Reason: Protocol Last Admin: 10/11/16 08:18 Dose: 30 mg Glipizide (Glucotrol Xl) 5 mg PO BRK [facility] Last Admin: 10/11/16 08:19 Dose: 5 mg Piperacillin Sod/Tazobactam (Sod 2.25 gm/ Sodium Chloride) 100 mls @ 100 mls/ hr IVPB Q8 [facility] Last Admin: 10/11/16 08:17 Dose: 100 mls/hr Metronidazole (Flagyl 500mg/100ml Ns) 100 mls @ 100 mls/hr IVPB Q8@0500,1300, 2100 [facility] Last Admin: 10/11/16 05:08 Dose: 100 mls/hr Sodium Chloride (Sodium Chloride 0.9%) 500 mls @ 75 mls/hr IV .Q6H40M [facility] Last Admin: 10/11/16 05:41 Dose: Not Given Meropenem 500 mg/ Sodium (Chloride) 100 mls @ 100 mls/hr IVPB Q8 [facility] Magnesium Chloride (Mag Delay 64mg) 1 tab PO DAILY [facility] Last Admin: 10/11/16 08:19 Dose: 1 tab Metoprolol Succinate (Toprol Xl) 50 mg PO DAILY [facility] Multivitamins/Minerals (Therapeutic-M Tab) 1 tab PO DAILY [facility] Last Admin: 10/11/16 08:19 Dose: 1 tab Ondansetron HCl (Zofran Inj) 4 mg IVP Q6 PRN PRN Reason: Nausea/Vomiting Vitamin D (Vitamin D 400 Intl Units Tab) 400 intlu PO DAILY [facility] Last Admin: 10/11/16 08:19 Dose: 400 intlu - Labs Labs: 10/11/16 05:00 10/11/16 05:00 PT 12.1 Seconds (9.8-13.1) 10/08/16 18:58 INR 1.2 (0.9-1.2) 10/08/16 18:58 APTT 29.7 Seconds (25.6-37.1) 10/08/16 18:58
[2016-10-11] MEDS: Metoprolol Succinate 50 mg XL Tab PO SCH (11:34)
[2016-10-11] MEDS: Potassium Chloride 20 mEq ER Tab PO SCH ×2 (11:34→17:03)
[2016-10-11] MEDS: Meropenem 500 MG in Sodium Chloride 0.9% 100 ML IVPB SCH (16:34)
[2016-10-11] MEDS ORDERED: Glucagon Recombinant 1 mg Inj IM PRN (17:00)
[2016-10-11] MEDS ORDERED: Dextrose 50% SYRINGE Inj (50 ml) IV PRN (17:00)
--- NOTE | 2016-10-11 19:29 | CP.PCM.PN ---
Subjective - Date & Time of Evaluation Date of Evaluation: 10/11/16 Time of Evaluation: 19:20 - Subjective Subjective: I D NOTE URINE CULTURE GREW E.COLI BLOOD CULTURE :GRAM NEG RODS ,LIKELY E.COLI c good sensitivities wbc:22 CREATININE:1.5 HAVE CHANGED MAXIPEME TO MEREM SIGNIFICANT DIARRHEA DC IV FLAGyl changeTO PO Objective - Vital Signs/Intake and Output Vital Signs (last 24 hours): Temp Pulse Resp BP Pulse Ox 97.8 F 84 18 155/68 H 98 10/11/16 16:50 10/11/16 16:50 10/11/16 16:50 10/11/16 16:50 10/11/16 16:50 Intake and Output: 10/11/16 10/12/16 18:59 06:59 Intake Total 1900 Balance 1900 - Medications Medications: Current Medications Acetaminophen (Tylenol 325mg Tab) 325 mg PO Q6 PRN PRN Reason: fever Last Admin: 10/10/16 16:30 Dose: 325 mg Atorvastatin Calcium (Lipitor) 10 mg PO DAILY [facility] Last Admin: 10/11/16 08:20 Dose: 10 mg Dextrose (Dextrose 50% Inj) 0 ml IV STAT PRN; Protocol PRN Reason: Hyglycemia Protocol Dextrose (Glutose 15) 0 gm PO ONCE PRN; Protocol PRN Reason: Hypoglycemia Protocol Enalapril Maleate (Vasotec) 5 mg PO DAILY [facility] Last Admin: 10/11/16 08:19 Dose: 5 mg Enoxaparin Sodium (Lovenox) 30 mg SC DAILY [facility] PRN Reason: Protocol Last Admin: 10/11/16 08:18 Dose: 30 mg Glucagon (Glucagen Diagnostic Kit) 0 mg IM STAT PRN; Protocol PRN Reason: Hypoglycemia Protocol Piperacillin Sod/Tazobactam (Sod 2.25 gm/ Sodium Chloride) 100 mls @ 100 mls/ hr IVPB Q8 [facility] Last Admin: 10/11/16 16:35 Dose: 100 mls/hr Sodium Chloride (Sodium Chloride 0.9%) 500 mls @ 75 mls/hr IV .Q6H40M [facility] Last Admin: 10/11/16 16:35 Dose: 75 mls/hr Meropenem 500 mg/ Sodium (Chloride) 100 mls @ 100 mls/hr IVPB Q8 [facility] Last Admin: 10/11/16 16:34 Dose: 100 mls/hr Magnesium Chloride (Mag Delay 64mg) 1 tab PO DAILY [facility] Last Admin: 10/11/16 08:19 Dose: 1 tab Metoprolol Succinate (Toprol Xl) 50 mg PO DAILY [facility] Last Admin: 10/11/16 11:34 Dose: 50 mg Metronidazole (Flagyl) 500 mg PO Q8 [facility] Multivitamins/Minerals (Therapeutic-M Tab) 1 tab PO DAILY [facility] Last Admin: 10/11/16 08:19 Dose: 1 tab Ondansetron HCl (Zofran Inj) 4 mg IVP Q6 PRN PRN Reason: Nausea/Vomiting Potassium Chloride (K-Dur 20 Meq Er Tab) 20 meq PO BID [facility] Last Admin: 10/11/16 17:03 Dose: 20 meq Vitamin D (Vitamin D 400 Intl Units Tab) 400 intlu PO DAILY [facility] Last Admin: 10/11/16 08:19 Dose: 400 intlu - Labs Labs: 10/11/16 05:00 10/11/16 05:00 PT 12.1 Seconds (9.8-13.1) 10/08/16 18:58 INR 1.2 (0.9-1.2) 10/08/16 18:58 APTT 29.7 Seconds (25.6-37.1) 10/08/16 18:58
[2016-10-12] MEDS: Meropenem 500 MG in Sodium Chloride 0.9% 100 ML IVPB SCH ×3 (00:30→17:37)
[2016-10-12] MEDS: Sodium Chloride 0.9% 500 ML IV SCH ×2 (03:53→09:24)
[2016-10-12 08:00] LABS: MEAN CELL VOLUME 85.4 fl (80.0-94.0); MEAN CORPUSCULAR HEMOGLOBIN 28.5 pg (27.0-31.0); MEAN CORPUSCULAR HGB CONC 33.4 g/dL (33.0-37.0); RED CELL DISTRIBUTION WIDTH 15.1 % (11.5-14.5); WHITE BLOOD COUNT 19.6 K/uL (4.8-10.8)
[2016-10-12 08:15] LABS: ALB/GLOB RATIO 0.8 (1.0-2.1); ALKALINE PHOSPHATASE 81 U/L (38-126); ALT/SGPT 30 U/L (21-72); AST/SGOT 32 U/L (17-59); BILIRUBIN,TOTAL 0.8 mg/dl (0.2-1.3); BLOOD UREA NITROGEN 19 mg/dl (9-20); CALCIUM 7.3 mg/dL (8.4-10.2); CARBON DIOXIDE 15 mmol/L (22-30); CHLORIDE 108 mmol/L (98-107); GFR AFRICAN-AMERICAN > 60; GLUCOSE,RANDOM 122 mg/dL (75-110); POTASSIUM 3.3 MMOL/L (3.6-5.0); SODIUM 131 mmol/l (132-148); TOTAL PROTEIN 6.2 G/DL (6.3-8.2)
[2016-10-12] MEDS: Cholecalciferol 400 Intl Units Tab PO SCH (09:14)
[2016-10-12] MEDS: SlowMag 1 TAB PO SCH (09:14)
[2016-10-12] MEDS: Potassium Chloride 20 mEq ER Tab PO SCH ×2 (09:15→17:40)
[2016-10-12] MEDS: Metoprolol Succinate 50 mg XL Tab PO SCH (09:16)
[2016-10-12] MEDS: Enoxaparin 30 mg Syringe SC SCH (09:18)
[2016-10-12] MEDS: Multivitamin With Minerals Tab PO SCH (09:19)
[2016-10-12] MEDS: Sodium Chloride 0.9% 200 ML IV SCH (09:22)
--- NOTE | 2016-10-12 09:36 | CP.PCM.PN ---
Subjective - Date & Time of Evaluation Date of Evaluation: 10/12/16 Time of Evaluation: 09:00 - Subjective Subjective: Continues to have semiformed frequent stools Temp has not exceeded 100 degrees over 24 hrs Leucocytosis continues to resolve (19.6 today) Sinus rhythm with frequent APCs BP 156/70 mm Hg JVP flat, no rales ABD soft, no guarding Labs : Azotemia continues to resolve K+ replacement ordered ABx have been adjusted Objective - Vital Signs/Intake and Output Vital Signs (last 24 hours): Temp Pulse Resp BP Pulse Ox 98.2 F 100 H 18 150/66 97 10/12/16 08:20 10/12/16 09:16 10/12/16 08:20 10/12/16 09:16 10/12/16 08:20 Intake and Output: 10/12/16 10/12/16 06:59 18:59 Intake Total 1750 Balance 1750 - Medications Medications: Current Medications Acetaminophen (Tylenol 325mg Tab) 325 mg PO Q6 PRN PRN Reason: fever Last Admin: 10/10/16 16:30 Dose: 325 mg Atorvastatin Calcium (Lipitor) 10 mg PO DAILY [facility] Last Admin: 10/12/16 09:15 Dose: 10 mg Dextrose (Dextrose 50% Inj) 0 ml IV STAT PRN; Protocol PRN Reason: Hyglycemia Protocol Dextrose (Glutose 15) 0 gm PO ONCE PRN; Protocol PRN Reason: Hypoglycemia Protocol Enalapril Maleate (Vasotec) 5 mg PO DAILY [facility] Last Admin: 10/12/16 09:17 Dose: 5 mg Glucagon (Glucagen Diagnostic Kit) 0 mg IM STAT PRN; Protocol PRN Reason: Hypoglycemia Protocol Hydromorphone HCl (Dilaudid) 1 mg IVP Q6 PRN PRN Reason: Pain, severe (8-10) Last Admin: 10/11/16 20:34 Dose: 1 mg Piperacillin Sod/Tazobactam (Sod 2.25 gm/ Sodium Chloride) 100 mls @ 100 mls/ hr IVPB Q8 [facility] Last Admin: 10/12/16 09:20 Dose: 100 mls/hr Sodium Chloride (Sodium Chloride 0.9%) 500 mls @ 75 mls/hr IV .Q6H40M [facility] Last Admin: 10/12/16 09:24 Dose: 75 mls/hr Meropenem 500 mg/ Sodium (Chloride) 100 mls @ 100 mls/hr IVPB Q8 [facility] Last Admin: 10/12/16 09:18 Dose: 100 mls/hr Magnesium Chloride (Mag Delay 64mg) 1 tab PO DAILY [facility] Last Admin: 10/12/16 09:14 Dose: 1 tab Metoprolol Tartrate (Lopressor) 50 mg PO Q12 [facility] Metronidazole (Flagyl) 500 mg PO Q8 [facility] Last Admin: 10/12/16 09:14 Dose: 500 mg Multivitamins/Minerals (Therapeutic-M Tab) 1 tab PO DAILY [facility] Last Admin: 10/12/16 09:19 Dose: 1 tab Ondansetron HCl (Zofran Inj) 4 mg IVP Q6 PRN PRN Reason: Nausea/Vomiting Potassium Chloride (K-Dur 20 Meq Er Tab) 20 meq PO BID [facility] Last Admin: 10/12/16 09:15 Dose: 20 meq Vitamin D (Vitamin D 400 Intl Units Tab) 400 intlu PO DAILY [facility] Last Admin: 10/12/16 09:14 Dose: 400 intlu - Labs Labs: 10/12/16 07:46 10/12/16 07:46 PT 12.1 Seconds (9.8-13.1) 10/08/16 18:58 INR 1.2 (0.9-1.2) 10/08/16 18:58 APTT 29.7 Seconds (25.6-37.1) 10/08/16 18:58
[2016-10-12] MEDS: Saccharomyces Boulardi 250 mg Cap PO SCH ×2 (11:32→17:29)
[2016-10-12] MEDS: Atropine-Diphenoxylate 0.025-2.5 mg Tab PO PRN ×2 (12:18→17:30)
[2016-10-13] MEDS: Meropenem 500 MG in Sodium Chloride 0.9% 100 ML IVPB SCH ×3 (01:05→16:16)
[2016-10-13 08:13] LABS: HEMATOCRIT 33.1 % (35.0-51.0); MEAN CELL VOLUME 84.7 fl (80.0-94.0); MEAN CORPUSCULAR HEMOGLOBIN 28.1 pg (27.0-31.0); MEAN CORPUSCULAR HGB CONC 33.2 g/dL (33.0-37.0); RED CELL DISTRIBUTION WIDTH 15.2 % (11.5-14.5); WHITE BLOOD COUNT 19.3 K/uL (4.8-10.8)
[2016-10-13 08:18] LABS: ALB/GLOB RATIO 0.8 (1.0-2.1); ALKALINE PHOSPHATASE 84 U/L (38-126); ALT/SGPT 36 U/L (21-72); AST/SGOT 22 U/L (17-59); BILIRUBIN,TOTAL 0.8 mg/dl (0.2-1.3); BLOOD UREA NITROGEN 18 mg/dl (9-20); CALCIUM 7.2 mg/dL (8.4-10.2); CARBON DIOXIDE 14 mmol/L (22-30); CHLORIDE 105 mmol/L (98-107); GFR AFRICAN-AMERICAN > 60; GLUCOSE,RANDOM 105 mg/dL (75-110); POTASSIUM 3.6 MMOL/L (3.6-5.0); SODIUM 129 mmol/l (132-148); TOTAL PROTEIN 6.1 G/DL (6.3-8.2)
[2016-10-13] MEDS ORDERED: Iohexol 240 (50 ml) PO ONE (08:32)
--- NOTE | 2016-10-13 08:40 | CP.PCM.PN ---
Subjective - Date & Time of Evaluation Date of Evaluation: 10/13/16 Time of Evaluation: 08:00 - Subjective Subjective: No further chills, afebrile > 36 hrs Leucocytosis resolving ever so slowly Frequency of BMs less anf NOT watery anymore A Fib (Off and on) with HR 140s when pt is OOB BP 146/70 mm Hg Abd still distended with tenderness in Rt hypochondral area No guarding or rigidity Will obtain CT abd with PO contrast Raise beta blockade to control HR Pt on Lovenox (?? Start oral anticoagulation) Objective - Vital Signs/Intake and Output Vital Signs (last 24 hours): Temp Pulse Resp BP Pulse Ox 98.2 F 98 H 18 132/68 99 10/13/16 08:00 10/13/16 08:00 10/13/16 08:00 10/13/16 08:00 10/13/16 08:00 Intake and Output: 10/13/16 10/13/16 06:59 18:59 Intake Total 400 Balance 400 - Medications Medications: Current Medications Acetaminophen (Tylenol 325mg Tab) 325 mg PO Q6 PRN PRN Reason: fever Last Admin: 10/10/16 16:30 Dose: 325 mg Atorvastatin Calcium (Lipitor) 10 mg PO DAILY [facility] Last Admin: 10/12/16 09:15 Dose: 10 mg Dextrose (Dextrose 50% Inj) 0 ml IV STAT PRN; Protocol PRN Reason: Hyglycemia Protocol Dextrose (Glutose 15) 0 gm PO ONCE PRN; Protocol PRN Reason: Hypoglycemia Protocol Diphenoxylate HCl/Atropine (Lomotil 0.025-2.5 Mg Tablet) 1 tab PO QID PRN PRN Reason: Diarrhea Last Admin: 10/12/16 17:30 Dose: 1 tab Enalapril Maleate (Vasotec) 5 mg PO DAILY [facility] Last Admin: 10/12/16 09:17 Dose: 5 mg Glucagon (Glucagen Diagnostic Kit) 0 mg IM STAT PRN; Protocol PRN Reason: Hypoglycemia Protocol Hydromorphone HCl (Dilaudid) 1 mg IVP Q6 PRN PRN Reason: Pain, severe (8-10) Last Admin: 10/11/16 20:34 Dose: 1 mg Piperacillin Sod/Tazobactam (Sod 2.25 gm/ Sodium Chloride) 100 mls @ 100 mls/ hr IVPB Q8 [facility] Last Admin: 10/13/16 01:05 Dose: 100 mls/hr Meropenem 500 mg/ Sodium (Chloride) 100 mls @ 100 mls/hr IVPB Q8 [facility] Last Admin: 10/13/16 01:05 Dose: 100 mls/hr Iohexol (Omnipaque 240 (50 Ml)) 50 ml PO ONCE ONE Stop: 10/13/16 08:33 Magnesium Chloride (Mag Delay 64mg) 1 tab PO DAILY [facility] Last Admin: 10/12/16 09:14 Dose: 1 tab Metoprolol Tartrate (Lopressor) 50 mg PO Q12 [facility] Last Admin: 10/12/16 21:29 Dose: 50 mg Metronidazole (Flagyl) 500 mg PO Q8 [facility] Last Admin: 10/13/16 01:04 Dose: 500 mg Multivitamins/Minerals (Therapeutic-M Tab) 1 tab PO DAILY [facility] Last Admin: 10/12/16 09:19 Dose: 1 tab Ondansetron HCl (Zofran Inj) 4 mg IVP Q6 PRN PRN Reason: Nausea/Vomiting Potassium Chloride (K-Dur 20 Meq Er Tab) 20 meq PO BID [facility] Last Admin: 10/12/16 17:40 Dose: 20 meq Saccharomyces Boulardii (Florastor) 250 mg PO BID [facility] Last Admin: 10/12/16 17:29 Dose: 250 mg Vitamin D (Vitamin D 400 Intl Units Tab) 400 intlu PO DAILY [facility] Last Admin: 10/12/16 09:14 Dose: 400 intlu - Labs Labs: 10/13/16 06:00 10/13/16 06:00 PT 12.1 Seconds (9.8-13.1) 10/08/16 18:58 INR 1.2 (0.9-1.2) 10/08/16 18:58 APTT 29.7 Seconds (25.6-37.1) 10/08/16 18:58
[2016-10-13] MEDS: Saccharomyces Boulardi 250 mg Cap PO SCH ×2 (09:19→16:16)
[2016-10-13] MEDS: Potassium Chloride 20 mEq ER Tab PO SCH ×2 (09:19→16:16)
[2016-10-13] MEDS: SlowMag 1 TAB PO SCH (09:21)
[2016-10-13] MEDS: Multivitamin With Minerals Tab PO SCH (09:22)
[2016-10-13] MEDS: Cholecalciferol 400 Intl Units Tab PO SCH (09:23)
--- NOTE | 2016-10-13 18:17 | CP.PCM.PN ---
Subjective - Date & Time of Evaluation Date of Evaluation: 10/13/16 Time of Evaluation: 18:17 - Subjective Subjective: I D NOTE WBC:19.2 DECREASING BUT QUITE SLOWLY PER DR.J. CURRY ALSO ABDOMEN IS DISTENDED c INCREASED BOWEL SOUNDS ALONG c R & L UQ TENDERNESS HAS " HICCUPS AND BURPS" HAVE REVIEWED CT SCAN c RADIOLOGY OVER PHONE WHO GAVE REPORT OF DILATED GB c STONES(SAME PREVIOUS READING) AND SWILLING OF PANCREAS HEAD STATED PANCREATITIS POSSIBLY BILIARY THICKENED DUODENUM( ? AIR) DISTENDED BLADDER DISCUSSED c STAT AMYLASE/LIPASE ,RANDOM URINARY AMYLASE ORDERED Objective - Vital Signs/Intake and Output Vital Signs (last 24 hours): Temp Pulse Resp BP Pulse Ox 98.3 F 110 H 20 148/78 99 10/13/16 16:05 10/13/16 16:05 10/13/16 16:05 10/13/16 16:05 10/13/16 16:05 Intake and Output: 10/13/16 10/13/16 06:59 18:59 Intake Total 400 520 Balance 400 520 - Medications Medications: Current Medications Acetaminophen (Tylenol 325mg Tab) 325 mg PO Q6 PRN PRN Reason: fever Last Admin: 10/10/16 16:30 Dose: 325 mg Atorvastatin Calcium (Lipitor) 10 mg PO DAILY [facility] Last Admin: 10/13/16 09:20 Dose: 10 mg Dextrose (Dextrose 50% Inj) 0 ml IV STAT PRN; Protocol PRN Reason: Hyglycemia Protocol Dextrose (Glutose 15) 0 gm PO ONCE PRN; Protocol PRN Reason: Hypoglycemia Protocol Diphenoxylate HCl/Atropine (Lomotil 0.025-2.5 Mg Tablet) 1 tab PO QID PRN PRN Reason: Diarrhea Last Admin: 10/12/16 17:30 Dose: 1 tab Enalapril Maleate (Vasotec) 5 mg PO DAILY [facility] Last Admin: 10/13/16 09:22 Dose: 5 mg Glucagon (Glucagen Diagnostic Kit) 0 mg IM STAT PRN; Protocol PRN Reason: Hypoglycemia Protocol Hydromorphone HCl (Dilaudid) 1 mg IVP Q6 PRN PRN Reason: Pain, severe (8-10) Last Admin: 10/11/16 20:34 Dose: 1 mg Meropenem 500 mg/ Sodium (Chloride) 100 mls @ 100 mls/hr IVPB Q8 [facility] Last Admin: 10/13/16 16:16 Dose: 100 mls/hr Piperacillin Sod/Tazobactam (Sod 3.375 gm/ Sodium Chloride) 100 mls @ 100 mls/ hr IVPB Q8H [facility] Magnesium Chloride (Mag Delay 64mg) 1 tab PO DAILY [facility] Last Admin: 10/13/16 09:21 Dose: 1 tab Metoprolol Tartrate (Lopressor) 100 mg PO Q12 [facility] Last Admin: 10/13/16 09:21 Dose: 100 mg Metronidazole (Flagyl) 500 mg PO Q8 [facility] Last Admin: 10/13/16 16:16 Dose: 500 mg Multivitamins/Minerals (Therapeutic-M Tab) 1 tab PO DAILY [facility] Last Admin: 10/13/16 09:22 Dose: 1 tab Ondansetron HCl (Zofran Inj) 4 mg IVP Q6 PRN PRN Reason: Nausea/Vomiting Potassium Chloride (K-Dur 20 Meq Er Tab) 20 meq PO BID [facility] Last Admin: 10/13/16 16:16 Dose: 20 meq Saccharomyces Boulardii (Florastor) 250 mg PO BID [facility] Last Admin: 10/13/16 16:16 Dose: 250 mg Vitamin D (Vitamin D 400 Intl Units Tab) 400 intlu PO DAILY [facility] Last Admin: 10/13/16 09:23 Dose: 400 intlu - Labs Labs: 10/13/16 06:00 10/13/16 06:00 PT 12.1 Seconds (9.8-13.1) 10/08/16 18:58 INR 1.2 (0.9-1.2) 10/08/16 18:58 APTT 29.7 Seconds (25.6-37.1) 10/08/16 18:58
--- NOTE | 2016-10-13 18:50 | CT ---
PROCEDURE: CT abdomen and pelvis dated 10/13/2016 HISTORY: Persistent Rt hypochondral tenderness COMPARISON: Comparison made with prior CT scan 10/08/2016 TECHNIQUE: Contiguous axial images of the abdomen and pelvis performed without oral or intravenous contrast material. Additional 2 dimensional sagittal and coronal reformats generated. Radiation dose: Total exam DLP = 624.78 mGy-cm. This CT exam was performed using one or more of the following dose reduction techniques: Automated exposure control, adjustment of the mA and/or kV according to patient size, and/or use of iterative reconstruction technique. FINDINGS: LOWER THORAX: Bilateral effusions left greater than right. Mild bibasilar atelectasis left greater than right. Small hiatal hernia with wall thickening of distal esophagus that could be due to protrusion gastric mucosa. Possibility of esophagitis not excluded. Other intrinsic/invasive wall lesion also less likely though not completely excluded Cardiomegaly. LIVER: Small hiatal hernia with wall thickening of the distal esophagus that could be due to protrusion gastric mucosa. Possibility of esophagitis not excluded. GALLBLADDER AND BILE DUCTS: The gallbladder is physiologically distended. Multiple intraluminal gallbladder calculi. PANCREAS: There appears to be enlargement and edematous changes of the pancreatic head with surrounding infiltration of the mesenteries. On findings suggest pancreatitis. There is also dilatation of the common bile duct. SPLEEN: The spleen exhibits normal size and attenuation pattern. ADRENALS: No adrenal lesions seen. KIDNEYS AND URETERS: Kidneys exhibit relatively symmetric size. No evidence of nephrolithiasis or hydronephrosis. Mild infiltration changes seen in the perinephric fat. BLADDER: Urinary bladder is incompletely distended which may in part account for thick-walled appearance. Muscular hypertrophy may contribute. Rule out cystitis. The intrinsic/invasive wall lesion including transitional cell cannot be excluded. REPRODUCTIVE: Prostate gland measures approximately 3.6 cm in transverse dimension. APPENDIX: What is felt to represent a short but normal on appearing partially contrast and air filled appendix best seen on axial image number [id number]. No periappendiceal inflammatory changes. BOWEL: Evaluation of the bowel is limited due to incomplete opacification. The stomach is incompletely distended which may account for slight thick-walled appearance. Gastritis should be excluded. There is marked wall thickening of the duodenum and proximal jejunum on with adjacent infiltration changes at the level of the pancreatic head. Findings could be secondary to reactive inflammation not due to a pancreatitis . The possibility of duodenal ulcer with microperforation cannot be completely excluded clinical correlation recommended. . There is mild wall thickening of the descending colon which may in part be secondary to peristalsis and underdistention. The possibility of a mild inflammatory process cannot be excluded. PERITONEUM: No definitive free intraperitoneal air. Tiny amount of flow fluid within the para renal spaces suspected. LYMPH NODES: Evaluation for adenopathy is limited due to the lack of circulating intravenous contrast material. Few small nonspecific retroperitoneal lymph nodes are present. VASCULATURE: No evidence of abdominal aortic aneurysm. BONES: No osseous structures appear grossly intact with no destructive changes. Multilevel degenerative spondylosis of the of lower thoracic and lumbar spine. There is a levoscoliosis centered at the L1-L2 level. OTHER FINDINGS: None. IMPRESSION: Findings suggestive of acute pancreatitis involving the pancreatic head. There is also on marked wall thickening of the crossing the duodenum which may be reactive secondary to pancreatitis however the possibility of a duodenal ulcer with micro perforation not excluded. There is a small amount of infiltration and fluid seen extending into the para renal spaces. Wall thickening of the urinary bladder likely due to incomplete distention and muscular hypertrophy however the possibility of cystitis or other intrinsic/invasive wall lesion cannot be excluded clinical correlation recommended. See above discussion for additional details and findings. Cholelithiasis. Note that these findings were discussed with the infectious disease attending Dr. Hunt at approximately 5:53 pm with written down and read back verification.
[2016-10-13 19:08] LABS: AMYLASE 63 U/L (30-110); LIPASE 88 U/L (23-300)
[2016-10-14] MEDS: Meropenem 500 MG in Sodium Chloride 0.9% 100 ML IVPB SCH ×3 (00:43→16:18)
[2016-10-14] MEDS: Piperacillin/Tazobact 3.375 GM in Sodium Chloride 0.9% 100 ML IVPB SCH ×3 (00:44→16:30)
[2016-10-14] MEDS: Atropine-Diphenoxylate 0.025-2.5 mg Tab PO PRN (02:42)
[2016-10-14 08:00] LABS: HEMATOCRIT 34.6 % (35.0-51.0); MEAN CELL VOLUME 84.5 fl (80.0-94.0); MEAN CORPUSCULAR HEMOGLOBIN 28.4 pg (27.0-31.0); MEAN CORPUSCULAR HGB CONC 33.6 g/dL (33.0-37.0); RED CELL DISTRIBUTION WIDTH 15.8 % (11.5-14.5); WHITE BLOOD COUNT 19.8 K/uL (4.8-10.8)
[2016-10-14 08:15] LABS: ALB/GLOB RATIO 0.8 (1.0-2.1); ALKALINE PHOSPHATASE 84 U/L (38-126); ALT/SGPT 29 U/L (21-72); AST/SGOT 20 U/L (17-59); BILIRUBIN,TOTAL 0.7 mg/dl (0.2-1.3); BLOOD UREA NITROGEN 18 mg/dl (9-20); CALCIUM 7.2 mg/dL (8.4-10.2); CARBON DIOXIDE 14 mmol/L (22-30); CHLORIDE 102 mmol/L (98-107); GFR AFRICAN-AMERICAN > 60; GLUCOSE,RANDOM 125 mg/dL (75-110); POTASSIUM 3.5 MMOL/L (3.6-5.0); SODIUM 125 mmol/l (132-148); TOTAL PROTEIN 6.2 G/DL (6.3-8.2)
[2016-10-14] MEDS: Saccharomyces Boulardi 250 mg Cap PO SCH ×2 (09:31→17:18)
[2016-10-14] MEDS: Potassium Chloride 20 mEq ER Tab PO SCH ×2 (09:31→17:18)
[2016-10-14] MEDS: SlowMag 1 TAB PO SCH (09:34)
[2016-10-14] MEDS: Cholecalciferol 400 Intl Units Tab PO SCH (09:35)
[2016-10-14] MEDS: Multivitamin With Minerals Tab PO SCH (09:35)
--- NOTE | 2016-10-14 12:21 | CP.PCM.PN ---
Subjective - Date & Time of Evaluation Date of Evaluation: 10/14/16 Time of Evaluation: 12:00 - Subjective Subjective: Continues to C/O epigastric discomfort and distension Has retching but no vomitting diarrhoea has virtually gone Afebrile for >72hrs Leucocytosis unchanged over last 24 hrs (19.8K) BUN/Creatinin 18/1.0 mg Na+125 mEq/L, K+ 3.5 mEq/L Amylase and Lipase normal CT Abd findings noted Clinically pt had epigastric discomfort and tenderness But normal amylase and lipase levels refute it Liver enzymes have been normal Have discussed these findings with Dr. Lawrence Will have GI see pt as well. Objective - Vital Signs/Intake and Output Vital Signs (last 24 hours): Temp Pulse Resp BP Pulse Ox 97.6 F 72 18 162/74 H 100 10/14/16 12:00 10/14/16 12:00 10/14/16 12:00 10/14/16 12:00 10/14/16 12:00 Intake and Output: 10/14/16 10/14/16 06:59 18:59 Intake Total 200 Balance 200 - Medications Medications: Current Medications Acetaminophen (Tylenol 325mg Tab) 325 mg PO Q6 PRN PRN Reason: fever Last Admin: 10/10/16 16:30 Dose: 325 mg Atorvastatin Calcium (Lipitor) 10 mg PO DAILY [facility] Last Admin: 10/14/16 09:34 Dose: 10 mg Dextrose (Dextrose 50% Inj) 0 ml IV STAT PRN; Protocol PRN Reason: Hyglycemia Protocol Dextrose (Glutose 15) 0 gm PO ONCE PRN; Protocol PRN Reason: Hypoglycemia Protocol Diphenoxylate HCl/Atropine (Lomotil 0.025-2.5 Mg Tablet) 1 tab PO QID PRN PRN Reason: Diarrhea Last Admin: 10/14/16 02:42 Dose: 1 tab Enalapril Maleate (Vasotec) 5 mg PO DAILY [facility] Last Admin: 10/14/16 09:35 Dose: 5 mg Glucagon (Glucagen Diagnostic Kit) 0 mg IM STAT PRN; Protocol PRN Reason: Hypoglycemia Protocol Hydromorphone HCl (Dilaudid) 1 mg IVP Q6 PRN PRN Reason: Pain, severe (8-10) Last Admin: 10/11/16 20:34 Dose: 1 mg Meropenem 500 mg/ Sodium (Chloride) 100 mls @ 100 mls/hr IVPB Q8 [facility] Last Admin: 10/14/16 09:37 Dose: 100 mls/hr Piperacillin Sod/Tazobactam (Sod 3.375 gm/ Sodium Chloride) 100 mls @ 100 mls/ hr IVPB Q8H [facility] Last Admin: 10/14/16 09:36 Dose: 100 mls/hr Sodium Chloride (Sodium Chloride 0.9%) 1,000 mls @ 75 mls/hr IV .[id number] [facility] Stop: 10/15/16 12:18 Magnesium Chloride (Mag Delay 64mg) 1 tab PO DAILY [facility] Last Admin: 10/14/16 09:34 Dose: 1 tab Metoprolol Tartrate (Lopressor) 100 mg PO Q12 [facility] Last Admin: 10/14/16 09:31 Dose: 100 mg Metronidazole (Flagyl) 500 mg PO Q8 [facility] Last Admin: 10/14/16 09:39 Dose: 500 mg Multivitamins/Minerals (Therapeutic-M Tab) 1 tab PO DAILY [facility] Last Admin: 10/14/16 09:35 Dose: 1 tab Ondansetron HCl (Zofran Inj) 4 mg IVP Q6 PRN PRN Reason: Nausea/Vomiting Last Admin: 10/14/16 09:44 Dose: 4 mg Potassium Chloride (K-Dur 20 Meq Er Tab) 20 meq PO BID [facility] Last Admin: 10/14/16 09:31 Dose: 20 meq Saccharomyces Boulardii (Florastor) 250 mg PO BID [facility] Last Admin: 10/14/16 09:31 Dose: 250 mg Vitamin D (Vitamin D 400 Intl Units Tab) 400 intlu PO DAILY [facility] Last Admin: 10/14/16 09:35 Dose: 400 intlu - Labs Labs: 10/14/16 05:30 10/14/16 05:30 PT 12.1 Seconds (9.8-13.1) 10/08/16 18:58 INR 1.2 (0.9-1.2) 10/08/16 18:58 APTT 29.7 Seconds (25.6-37.1) 10/08/16 18:58
[2016-10-14] MEDS ORDERED: Simethicone 40 mg/0.6 ml Liquid (30 ml) PO PRN (12:30)
[2016-10-14] MEDS ORDERED: Iohexol 240 (50 ml) PO ONE (15:22)
[2016-10-14] MEDS: Sodium Chloride 0.9% 1,000 ML IV SCH (15:54)
--- NOTE | 2016-10-14 16:20 | CP.PCM.CON ---
History of Present Illness - History of Present Illness History of Present Illness: GI consult requested by Dr Onofre- This is a 76-year-old man with known CAD, s/p CABG, COPD, past smoking history with PPD, now with 1-2 cigerrates per day, DM, HTN, UTI 6 months ago admitted with UTI and sepsis in setting of pyelonephritis. He has past hospitalizations with PNA and bronchitis. History was taken from daughter at the bedside. He has been on antibiotics for UTI but has started to complain of abdominal pain and distension and loss of appetite. As per daughter he ahs had chronic diarrhea for more than 20 years ago. Stools are green, floating with oil droplets in the toilet bowl. He denies nausea, vomiting, history of rectal bleeding or dark stools. He had EGD in 2012 which was unremarkable with no H pylori infection and a colonoscopy with benign colonic polyps. He denies rUQ pain, scleral icterus, weight loss or family history of GI cancer. He denies alcohol abuse but drinks alcohol socially. In ER, CT scan of the abdomen showed dilated biliary ducts but no evidence of biliary obstruction was evident there were multiple gallstones in gallbladder. There was evidence of perinephric inflammation on the right side with possible hydronephrosis on the right side. No renal calculus was evident in the urinary tract. The bladder wall appeared thickened suggestive of possible chronic inflammation. His urine and blood cultures have E. coli bacteremia. His leukocytosis has resolved. He never had abnormal LFT, and was admitted with normal amylase and lipase. He denies right upper quadrant pain. Review of Systems - Review of Systems Review of Systems: 12 point ROS unremarkable except that documented in HPI Past Patient History - Past Medical History & Family History Past Medical History?: Yes - Past Social History Smoking Status: Former Smoker - CARDIAC Hx Cardiac Disorders: Yes - PULMONARY Hx Respiratory Disorders: Yes - NEUROLOGICAL Hx Neurological Disorder: No - HEENT Hx HEENT Problems: Yes - RENAL Hx Chronic Kidney Disease: No - ENDOCRINE/METABOLIC Hx Endocrine Disorders: Yes - HEMATOLOGICAL/ONCOLOGICAL Hx Blood Disorders: No - INTEGUMENTARY Hx Dermatological Problems: No - MUSCULOSKELETAL/RHEUMATOLOGICAL Hx Musculoskeletal Disorders: Yes - GASTROINTESTINAL Hx Gastrointestinal Disorders: No - GENITOURINARY/GYNECOLOGICAL Hx Genitourinary Disorders: No - PSYCHIATRIC Hx Psychophysiologic Disorder: No - SURGICAL HISTORY Hx Coronary Artery Bypass Graft: Yes - ANESTHESIA Hx Anesthesia: Yes Hx Anesthesia Reactions: No Hx Malignant Hyperthermia: No Meds Allergies/Adverse Reactions: Allergies Allergy/AdvReac Type Severity Reaction Status Date / Time azithromycin Allergy ITCHING Verified 10/08/16 18:10 moxifloxacin [From Avelox] Allergy ITCHING Verified 10/08/16 18:10 - Medications Medications: Current Medications Acetaminophen (Tylenol 325mg Tab) 325 mg PO Q6 PRN PRN Reason: fever Last Admin: 10/10/16 16:30 Dose: 325 mg Atorvastatin Calcium (Lipitor) 10 mg PO DAILY [facility] Last Admin: 10/14/16 09:34 Dose: 10 mg Dextrose (Dextrose 50% Inj) 0 ml IV STAT PRN; Protocol PRN Reason: Hyglycemia Protocol Dextrose (Glutose 15) 0 gm PO ONCE PRN; Protocol PRN Reason: Hypoglycemia Protocol Diphenoxylate HCl/Atropine (Lomotil 0.025-2.5 Mg Tablet) 1 tab PO QID PRN PRN Reason: Diarrhea Last Admin: 10/14/16 02:42 Dose: 1 tab Enalapril Maleate (Vasotec) 5 mg PO DAILY [facility] Last Admin: 10/14/16 09:35 Dose: 5 mg Glucagon (Glucagen Diagnostic Kit) 0 mg IM STAT PRN; Protocol PRN Reason: Hypoglycemia Protocol Hydromorphone HCl (Dilaudid) 1 mg IVP Q6 PRN PRN Reason: Pain, severe (8-10) Last Admin: 10/11/16 20:34 Dose: 1 mg Meropenem 500 mg/ Sodium (Chloride) 100 mls @ 100 mls/hr IVPB Q8 [facility] Last Admin: 10/14/16 09:37 Dose: 100 mls/hr Piperacillin Sod/Tazobactam (Sod 3.375 gm/ Sodium Chloride) 100 mls @ 100 mls/ hr IVPB Q8H [facility] Last Admin: 10/14/16 09:36 Dose: 100 mls/hr Sodium Chloride (Sodium Chloride 0.9%) 1,000 mls @ 75 mls/hr IV .[id number] [facility] Stop: 10/15/16 12:18 Last Admin: 10/14/16 15:54 Dose: 75 mls/hr Magnesium Chloride (Mag Delay 64mg) 1 tab PO DAILY [facility] Last Admin: 10/14/16 09:34 Dose: 1 tab Metoprolol Tartrate (Lopressor) 100 mg PO Q12 [facility] Last Admin: 10/14/16 09:31 Dose: 100 mg Metronidazole (Flagyl) 500 mg PO Q8 [facility] Last Admin: 10/14/16 09:39 Dose: 500 mg Multivitamins/Minerals (Therapeutic-M Tab) 1 tab PO DAILY [facility] Last Admin: 10/14/16 09:35 Dose: 1 tab Ondansetron HCl (Zofran Inj) 4 mg IVP Q6 PRN PRN Reason: Nausea/Vomiting Last Admin: 10/14/16 09:44 Dose: 4 mg Potassium Chloride (K-Dur 20 Meq Er Tab) 20 meq PO BID [facility] Last Admin: 10/14/16 09:31 Dose: 20 meq Saccharomyces Boulardii (Florastor) 250 mg PO BID [facility] Last Admin: 10/14/16 09:31 Dose: 250 mg Simethicone (Mylicon Liq) 40 mg PO QID PRN PRN Reason: Flatulence Vitamin D (Vitamin D 400 Intl Units Tab) 400 intlu PO DAILY [facility] Last Admin: 10/14/16 09:35 Dose: 400 intlu Physical Exam - Constitutional Appears: Well, Non-toxic, No Acute Distress - Head Exam Head Exam: ATRAUMATIC, NORMAL INSPECTION, NORMOCEPHALIC - Eye Exam Eye Exam: EOMI, Normal appearance, Periorbital swelling, PERRL - ENT Exam ENT Exam: Mucous Membranes Moist, Normal Exam - Neck Exam Neck exam: Positive for: Full Rom, Normal Inspection - Respiratory Exam Respiratory Exam: Clear to Auscultation Bilateral, NORMAL BREATHING PATTERN - Cardiovascular Exam Cardiovascular Exam: Irregular Rhythm, +S1, +S2 - GI/Abdominal Exam GI & Abdominal Exam: Normal Bowel Sounds, Soft Additional comments: No guarding or tenderness No hernia No fluid thrill Distended Tympanic bowel sounds - Extremities Exam Extremities exam: Positive for: full ROM, normal inspection - Neurological Exam Neurological exam: Alert, Normal Gait, Oriented x3 - Psychiatric Exam Psychiatric exam: Normal Affect, Normal Mood - Skin Skin Exam: Dry, Intact Results - Vital Signs Recent Vital Signs: Last Vital Signs Temp 97.6 F 10/14/16 12:00 Pulse 72 10/14/16 12:00 Resp 18 10/14/16 12:00 BP 162/74 H 10/14/16 12:00 Pulse Ox 100 10/14/16 12:00 - Labs Result Diagrams: 10/14/16 05:30 10/14/16 05:30 Labs: Laboratory Results - last 24 hr 10/13/16 10/13/16 10/13/16 15:47 18:45 22:06 WBC RBC Hgb Hct MCV MCH MCHC RDW Plt Count Sodium Potassium Chloride Carbon Dioxide Anion Gap BUN Creatinine Est GFR ( Amer) Est GFR (Non-Af Amer) POC Glucose (mg/dL) 190 H 162 H Random Glucose Calcium Total Bilirubin AST ALT Alkaline Phosphatase Total Protein Albumin Globulin Albumin/Globulin Ratio Amylase 63 Lipase 88 10/14/16 10/14/16 10/14/16 05:30 05:30 05:37 WBC 19.8 H RBC 4.10 L Hgb 11.6 L Hct 34.6 L MCV 84.5 MCH 28.4 MCHC 33.6 RDW 15.8 H Plt Count 252 Sodium 125 L Potassium 3.5 L Chloride 102 Carbon Dioxide 14 L Anion Gap 13 BUN 18 Creatinine 1.0 Est GFR ( Amer) > 60 Est GFR (Non-Af Amer) > 60 POC Glucose (mg/dL) 141 H Random Glucose 125 H Calcium 7.2 L Total Bilirubin 0.7 AST 20 ALT 29 Alkaline Phosphatase 84 Total Protein 6.2 L Albumin 2.7 L Globulin 3.4 Albumin/Globulin Ratio 0.8 L Amylase Lipase 10/14/16 11:11 WBC RBC Hgb Hct MCV MCH MCHC RDW Plt Count Sodium Potassium Chloride Carbon Dioxide Anion Gap BUN Creatinine Est GFR ( Amer) Est GFR (Non-Af Amer) POC Glucose (mg/dL) 192 H Random Glucose Calcium Total Bilirubin AST ALT Alkaline Phosphatase Total Protein Albumin Globulin Albumin/Globulin Ratio Amylase Lipase Assessment & Plan - Assessment and Plan (Free Text) Assessment: 76 yr old M with extensive cardiac history with CAD, CABG, COPD with frequent PNA, and bronchitis, with two recent episodes of UTI, admitted with sepsis secondary to E. coli bacteremia in setting of pyelonephritis now complaining with abdominal pain, distension and chronic diarrhea with oil droplets and loss of appetite. LFT normal but CT non contrast concerning for Intrahepatic dilatation and CBD dilatation. No pancreatic head mass seen but some inflammation. Plan: - Will order stool infectious work up and stool for fat - Stool electrolytes to differentiate osmotic vs secretory diarrhea - CT abdomen with IV contrast with pancreatic protocol and rule out choledocholithiasis - Continue antibiotics as per ID - Low fat diet - IVF as needed - If needs anticoagulation/ antiplatelet suggest short acting - Hyponatremia correction a sper primary team - Will decide further endoluminal exam as per CT results - GI/DVt prophylaxis - Discussed plan with the daughter
[2016-10-14 18:06] LABS: BLOOD UREA NITROGEN 18 mg/dl (9-20); CARBON DIOXIDE 16 mmol/L (22-30); GFR AFRICAN-AMERICAN > 60; GLUCOSE,RANDOM 173 mg/dL (75-110)
[2016-10-14 18:09] LABS: CHLORIDE 101 mmol/L (98-107); POTASSIUM 3.8 MMOL/L (3.6-5.0); SODIUM 124 mmol/l (132-148)
[2016-10-14] MEDS ORDERED: Sodium Chloride 0.9% 100 ML ONE (18:57)
[2016-10-14] MEDS ORDERED: Iodixanol 320 MG/ML 100 ML BOTTLE IV ONE (18:57)
--- NOTE | 2016-10-14 20:17 | CT ---
EXAM: CT Abdomen Without and With Intravenous Contrast EXAM DATE/TIME: 10/14/2016 1:13 PM CLINICAL HISTORY: 76 years old, male; Pain; Abdominal pain; Generalized; Patient HX: Abd pain/ distended. Cad copd smoker; Additional info: Pancreatic inflammation and gb stones TECHNIQUE: Axial computed tomography images of the abdomen without and with intravenous contrast. All CT scans at this facility use one or more dose reduction techniques, viz.: automated exposure control; ma/kV adjustment per patient size (including targeted exams where dose is matched to indication; i.e. head); or iterative reconstruction technique. MIP reconstructed images were created and reviewed. Coronal and sagittal reformatted images were created and reviewed. CONTRAST: 98 mL of VISIPAQUE administered intravenously. COMPARISON: Prior noncontrast CT abdomen of 10/13/2016 FINDINGS: LIMITATIONS: [id number] streak/motion artifact. LOWER THORAX: Small bilateral pleural effusions. Gastroesophageal reflux. LIVER: Fatty infiltration of the liver. GALLBLADDER AND BILE DUCTS: Dilatation of the common bile duct, which measures 1.2 cm, and also the cystic duct. Cholelithiasis, with multiple gallstones seen. No CT evidence of acute cholecystitis. No radiopaque bile duct or cystic duct stones visualized. PANCREAS: Pancreatic duct is seen, but does not appear abnormally dilated. No CT evidence of significant acute pancreatitis. SPLEEN: No acute abnormality of the spleen identified. ADRENALS: No acute abnormality of the adrenal this identified. KIDNEYS AND URETERS: Delayed right nephrogram. Abnormal, heterogeneous enhancement pattern of the right kidney compared to the left. There are scattered, wedged-shaped areas of decreased enhancement in the right kidney. Mild right hydroureteronephrosis. Right urothelial thickening. No definite causative obstructing stone is seen, however, the distal right ureter is not included on this exam, which is a CT abdomen only. No acute abnormality of the left kidney identified. STOMACH AND BOWEL: Wall thickening of the distal stomach and proximal duodenum. This could represent pseudo-wall thickening due to underdistention/incomplete distension versus gastroenteritis. Otherwise, no significant abnormality of the bowel is identified. No evidence of bowel obstruction. APPENDIX: Appendix is seen, and is within normal limits in appearance. INTRAPERITONEAL SPACE: No evidence of free intraperitoneal air or fluid. BONES/JOINTS: No acute fractures or other acute bony abnormality noted. SOFT TISSUES: No acute abnormality of the visualized soft tissues is seen. VASCULATURE: Atherosclerotic calcification. No evidence of abdominal aortic aneurysm or dissection. LYMPH NODES: No evidence of diffuse lymphadenopathy. IMPRESSION: - Heterogeneous enhancement of the right kidney, right hydroureteronephrosis, and right urothelial thickening. Findings could be secondary to obstructive uropathy. A right-sided UTI, including right pyelonephritis, could also have this appearance. Findings require clinical correlation - Dilatation of the common bile duct, 1.2 cm, and also the cystic duct, cause not identified by CT. recommend correlation with LFTs or biliary obstruction, and further workup such as an abdominal ultrasound or MRCP. - Small bilateral pleural effusions. - Underdistention versus wall thickening/gastroenteritis involving the distal stomach and proximal duodenum. Recommend clinical correlation. - Otherwise, no evidence of significant acute process. - Gallstones. No CT evidence of acute cholecystitis. - See above for remaining findings.
[2016-10-15] MEDS: Meropenem 500 MG in Sodium Chloride 0.9% 100 ML IVPB SCH ×3 (00:08→17:01)
[2016-10-15] MEDS: Piperacillin/Tazobact 3.375 GM in Sodium Chloride 0.9% 100 ML IVPB SCH ×4 (01:34→17:06)
[2016-10-15] MEDS: Sodium Chloride 0.9% 1,000 ML IV SCH (01:36)
[2016-10-15 07:07] LABS: BASO % 0.2 % (0.0-2.0); EOS # 0.1 K/uL (0.0-0.7); EOS % 0.8 % (0.0-4.0); HEMATOCRIT 33.5 % (35.0-51.0); LYMPH # 1.8 K/uL (1.0-4.3); LYMPH % 10.9 % (20.0-40.0); MEAN CELL VOLUME 84.5 fl (80.0-94.0); MEAN CORPUSCULAR HEMOGLOBIN 28.5 pg (27.0-31.0); MEAN CORPUSCULAR HGB CONC 33.8 g/dL (33.0-37.0); MEAN PLATELET VOLUME 7.1 fl (7.2-11.7); MONO # 1.2 K/uL (0.0-0.8); NEUT # 13.7 K/uL (1.8-7.0); NEUT % 81.1 % (50.0-75.0); RED CELL DISTRIBUTION WIDTH 15.5 % (11.5-14.5); WHITE BLOOD COUNT 16.9 K/uL (4.8-10.8)
[2016-10-15 07:23] LABS: ALB/GLOB RATIO 0.8 (1.0-2.1); ALKALINE PHOSPHATASE 83 U/L (38-126); ALT/SGPT 31 U/L (21-72); AMYLASE 81 U/L (30-110); AST/SGOT 23 U/L (17-59); BILIRUBIN,TOTAL 0.6 mg/dl (0.2-1.3); BLOOD UREA NITROGEN 16 mg/dl (9-20); CALCIUM 7.1 mg/dL (8.4-10.2); CARBON DIOXIDE 17 mmol/L (22-30); CHLORIDE 104 mmol/L (98-107); GFR AFRICAN-AMERICAN > 60; GLUCOSE,RANDOM 135 mg/dL (75-110); LIPASE 174 U/L (23-300); POTASSIUM 3.7 MMOL/L (3.6-5.0); SODIUM 129 mmol/l (132-148); TOTAL PROTEIN 6.1 G/DL (6.3-8.2)
--- NOTE | 2016-10-15 08:31 | CP.PCM.PN ---
Subjective - Date & Time of Evaluation Date of Evaluation: 10/15/16 Time of Evaluation: 08:15 - Subjective Subjective: Generally looks a little better than yesterday Hiccups and nausea present Yesterday actually asked for food and ate small portion (kept it down) Afebrile (Leucocytosis continues to resolve, 16.9K today) Sinus rhythm at 70 BPM (Only one bout of A Fib last night BP 144/70 mm Hg Na+ 129mEq/L (Improved with NS) CT abd with IV contrast: Findings noted Dr. Madrid's note appreciated Will be away ([facility] look after pt) Objective - Vital Signs/Intake and Output Vital Signs (last 24 hours): Temp Pulse Resp BP Pulse Ox 97.7 F 75 18 146/77 100 10/15/16 05:00 10/15/16 05:00 10/15/16 05:00 10/15/16 05:00 10/15/16 05:00 Intake and Output: 10/15/16 10/15/16 06:59 18:59 Intake Total 300 Balance 300 - Medications Medications: Current Medications Acetaminophen (Tylenol 325mg Tab) 325 mg PO Q6 PRN PRN Reason: fever Last Admin: 10/10/16 16:30 Dose: 325 mg Atorvastatin Calcium (Lipitor) 10 mg PO DAILY [facility] Last Admin: 10/14/16 09:34 Dose: 10 mg Dextrose (Dextrose 50% Inj) 0 ml IV STAT PRN; Protocol PRN Reason: Hyglycemia Protocol Dextrose (Glutose 15) 0 gm PO ONCE PRN; Protocol PRN Reason: Hypoglycemia Protocol Diphenoxylate HCl/Atropine (Lomotil 0.025-2.5 Mg Tablet) 1 tab PO QID PRN PRN Reason: Diarrhea Last Admin: 10/14/16 02:42 Dose: 1 tab Enalapril Maleate (Vasotec) 5 mg PO DAILY [facility] Last Admin: 10/14/16 09:35 Dose: 5 mg Glucagon (Glucagen Diagnostic Kit) 0 mg IM STAT PRN; Protocol PRN Reason: Hypoglycemia Protocol Meropenem 500 mg/ Sodium (Chloride) 100 mls @ 100 mls/hr IVPB Q8 [facility] Last Admin: 10/15/16 00:08 Dose: 100 mls/hr Piperacillin Sod/Tazobactam (Sod 3.375 gm/ Sodium Chloride) 100 mls @ 100 mls/ hr IVPB Q8H [facility] Last Admin: 10/15/16 01:34 Dose: 100 mls/hr Sodium Chloride (Sodium Chloride 0.9%) 1,000 mls @ 75 mls/hr IV .[id number] [facility] Stop: 10/15/16 12:18 Last Admin: 10/15/16 01:36 Dose: 75 mls/hr Magnesium Chloride (Mag Delay 64mg) 1 tab PO DAILY [facility] Last Admin: 10/14/16 09:34 Dose: 1 tab Metoprolol Tartrate (Lopressor) 100 mg PO Q12 [facility] Last Admin: 10/14/16 21:38 Dose: 100 mg Metronidazole (Flagyl) 500 mg PO Q8 [facility] Last Admin: 10/15/16 00:13 Dose: 500 mg Multivitamins/Minerals (Therapeutic-M Tab) 1 tab PO DAILY [facility] Last Admin: 10/14/16 09:35 Dose: 1 tab Ondansetron HCl (Zofran Inj) 4 mg IVP Q6 PRN PRN Reason: Nausea/Vomiting Last Admin: 10/15/16 05:36 Dose: 4 mg Potassium Chloride (K-Dur 20 Meq Er Tab) 20 meq PO BID [facility] Last Admin: 10/14/16 17:18 Dose: 20 meq Saccharomyces Boulardii (Florastor) 250 mg PO BID [facility] Last Admin: 10/14/16 17:18 Dose: 250 mg Simethicone (Mylicon Liq) 40 mg PO QID PRN PRN Reason: Flatulence Vitamin D (Vitamin D 400 Intl Units Tab) 400 intlu PO DAILY [facility] Last Admin: 10/14/16 09:35 Dose: 400 intlu - Labs Labs: 10/15/16 06:05 10/15/16 06:05 PT 12.1 Seconds (9.8-13.1) 10/08/16 18:58 INR 1.2 (0.9-1.2) 10/08/16 18:58 APTT 29.7 Seconds (25.6-37.1) 10/08/16 18:58
[2016-10-15] MEDS: Saccharomyces Boulardi 250 mg Cap PO SCH ×2 (09:31→17:03)
[2016-10-15] MEDS: Potassium Chloride 20 mEq ER Tab PO SCH ×2 (09:32→17:02)
[2016-10-15] MEDS: SlowMag 1 TAB PO SCH (09:33)
[2016-10-15] MEDS: Cholecalciferol 400 Intl Units Tab PO SCH (09:34)
[2016-10-15] MEDS: Multivitamin With Minerals Tab PO SCH (09:35)
--- NOTE | 2016-10-15 15:13 | CP.PCM.PN ---
Subjective - Date & Time of Evaluation Date of Evaluation: 10/15/16 Time of Evaluation: 15:00 - Subjective Subjective: Patient seen and examined at bedside. No overnight events. Still with abdominal pain and early satiety. Daughter states that he ate less than 25% of his ethnic food yesterday Objective - Vital Signs/Intake and Output Vital Signs (last 24 hours): Temp Pulse Resp BP Pulse Ox 98.3 F 71 20 158/71 H 99 10/15/16 13:00 10/15/16 13:00 10/15/16 13:00 10/15/16 13:00 10/15/16 13:00 Intake and Output: 10/15/16 10/15/16 06:59 18:59 Intake Total 300 Balance 300 - Medications Medications: Current Medications Acetaminophen (Tylenol 325mg Tab) 325 mg PO Q6 PRN PRN Reason: fever Last Admin: 10/10/16 16:30 Dose: 325 mg Atorvastatin Calcium (Lipitor) 10 mg PO DAILY [facility] Last Admin: 10/15/16 09:32 Dose: 10 mg Dextrose (Dextrose 50% Inj) 0 ml IV STAT PRN; Protocol PRN Reason: Hyglycemia Protocol Dextrose (Glutose 15) 0 gm PO ONCE PRN; Protocol PRN Reason: Hypoglycemia Protocol Enalapril Maleate (Vasotec) 5 mg PO DAILY [facility] Last Admin: 10/15/16 09:35 Dose: 5 mg Glucagon (Glucagen Diagnostic Kit) 0 mg IM STAT PRN; Protocol PRN Reason: Hypoglycemia Protocol Meropenem 500 mg/ Sodium (Chloride) 100 mls @ 100 mls/hr IVPB Q8 [facility] Last Admin: 10/15/16 09:34 Dose: 100 mls/hr Piperacillin Sod/Tazobactam (Sod 3.375 gm/ Sodium Chloride) 100 mls @ 100 mls/ hr IVPB Q8H [facility] Last Admin: 10/15/16 09:38 Dose: 100 mls/hr Magnesium Chloride (Mag Delay 64mg) 1 tab PO DAILY [facility] Last Admin: 10/15/16 09:33 Dose: 1 tab Metoprolol Tartrate (Lopressor) 100 mg PO Q12 [facility] Last Admin: 10/15/16 09:32 Dose: 100 mg Metronidazole (Flagyl) 500 mg PO Q8 [facility] Last Admin: 10/15/16 00:13 Dose: 500 mg Multivitamins/Minerals (Therapeutic-M Tab) 1 tab PO DAILY [facility] Last Admin: 10/15/16 09:35 Dose: 1 tab Ondansetron HCl (Zofran Inj) 4 mg IVP Q6 PRN PRN Reason: Nausea/Vomiting Last Admin: 10/15/16 05:36 Dose: 4 mg Potassium Chloride (K-Dur 20 Meq Er Tab) 20 meq PO BID [facility] Last Admin: 10/15/16 09:32 Dose: 20 meq Saccharomyces Boulardii (Florastor) 250 mg PO BID [facility] Last Admin: 10/15/16 09:31 Dose: 250 mg Simethicone (Mylicon Liq) 40 mg PO QID PRN PRN Reason: Flatulence Vitamin D (Vitamin D 400 Intl Units Tab) 400 intlu PO DAILY [facility] Last Admin: 10/15/16 09:34 Dose: 400 intlu - Labs Labs: 10/15/16 06:05 10/15/16 06:05 PT 12.1 Seconds (9.8-13.1) 10/08/16 18:58 INR 1.2 (0.9-1.2) 10/08/16 18:58 APTT 29.7 Seconds (25.6-37.1) 10/08/16 18:58 - Constitutional Appears: Well, Non-toxic, No Acute Distress - Head Exam Head Exam: ATRAUMATIC, NORMAL INSPECTION, NORMOCEPHALIC Additional comments: Anicteric sclera - ENT Exam ENT Exam: Mucous Membranes Moist, Normal Exam - Respiratory Exam Respiratory Exam: Clear to Ausculation Bilateral, NORMAL BREATHING PATTERN - Cardiovascular Exam Cardiovascular Exam: Irregular Rhythm, +S1, +S2. absent: Murmur - GI/Abdominal Exam GI & Abdominal Exam: Distended, Soft, Normal Bowel Sounds. absent: Tenderness - Extremities Exam Extremities Exam: Full ROM, Normal Inspection - Neurological Exam Neurological Exam: Alert, Oriented x3 - Psychiatric Exam Psychiatric exam: Normal Affect, Normal Mood - Skin Skin Exam: Dry, Intact, Normal Color Assessment and Plan - Assessment and Plan (Free Text) Assessment: 76 yr old M with extensive cardiac history with CAD, CABG, COPD with frequent PNA, and bronchitis, with two recent episodes of UTI, admitted with sepsis secondary to E. coli bacteremia in setting of pyelonephritis now complaining with abdominal pain, distension and chronic diarrhea with oil droplets and loss of appetite. LFT normal but CT contrast concerning for Intrahepatic dilatation and CBD dilatation with layering stones in gallbladder. No pancreatic head mass with normal pancreas. Will get MRCP to better characterize bile ducts. Hydronephrosis . Plan: - Pending stool infectious work up and stool for fat - Stool electrolytes to differentiate osmotic vs secretory diarrhea - MRCP abdomen ordered - Continue antibiotics as per ID - Low fat diet - IVF as needed - If needs anticoagulation/ antiplatelet suggest short acting - Hyponatremia correction as per primary team - Will decide further endoluminal exam as per CT results - GI/DVt prophylaxis - Discussed plan with the daughter
[2016-10-15] MEDS ORDERED: Sodium Chloride 0.9% 50 ML IV ONE (17:00)
[2016-10-15] MEDS ORDERED: Gadodiamide 287 MG/ML VIAL (15ML) IV ONE (17:00)
--- NOTE | 2016-10-15 17:16 | CP.PCM.PN ---
Subjective - Date & Time of Evaluation Date of Evaluation: 10/15/16 Time of Evaluation: 17:00 - Subjective Subjective: I D NOTE AFEBRILE WBC IS 16.7,POLYS :81% STILL HAS NAUSEA ,NOT EATING WELL DISCUSSED C DAUGHTER GOING FOR MRCP HAVE ORDERED CONSULT c REGARDING PYELONEPHROSIS(UROSEPSIS) GI CONSULT APPRECIATED Objective - Vital Signs/Intake and Output Vital Signs (last 24 hours): Temp Pulse Resp BP Pulse Ox 97.8 F 61 20 150/76 100 10/15/16 15:42 10/15/16 15:42 10/15/16 15:42 10/15/16 15:42 10/15/16 15:42 Intake and Output: 10/15/16 10/15/16 06:59 18:59 Intake Total 300 Balance 300 - Medications Medications: Current Medications Acetaminophen (Tylenol 325mg Tab) 325 mg PO Q6 PRN PRN Reason: fever Last Admin: 10/10/16 16:30 Dose: 325 mg Atorvastatin Calcium (Lipitor) 10 mg PO DAILY [facility] Last Admin: 10/15/16 09:32 Dose: 10 mg Dextrose (Dextrose 50% Inj) 0 ml IV STAT PRN; Protocol PRN Reason: Hyglycemia Protocol Dextrose (Glutose 15) 0 gm PO ONCE PRN; Protocol PRN Reason: Hypoglycemia Protocol Enalapril Maleate (Vasotec) 5 mg PO DAILY [facility] Last Admin: 10/15/16 09:35 Dose: 5 mg Glucagon (Glucagen Diagnostic Kit) 0 mg IM STAT PRN; Protocol PRN Reason: Hypoglycemia Protocol Meropenem 500 mg/ Sodium (Chloride) 100 mls @ 100 mls/hr IVPB Q8 [facility] Last Admin: 10/15/16 09:34 Dose: 100 mls/hr Piperacillin Sod/Tazobactam (Sod 3.375 gm/ Sodium Chloride) 100 mls @ 100 mls/ hr IVPB Q8H [facility] Last Admin: 10/15/16 09:38 Dose: 100 mls/hr Magnesium Chloride (Mag Delay 64mg) 1 tab PO DAILY [facility] Last Admin: 10/15/16 09:33 Dose: 1 tab Metoprolol Tartrate (Lopressor) 100 mg PO Q12 [facility] Last Admin: 10/15/16 09:32 Dose: 100 mg Metronidazole (Flagyl) 500 mg PO Q8 [facility] Last Admin: 10/15/16 00:13 Dose: 500 mg Multivitamins/Minerals (Therapeutic-M Tab) 1 tab PO DAILY [facility] Last Admin: 10/15/16 09:35 Dose: 1 tab Ondansetron HCl (Zofran Inj) 4 mg IVP Q6 PRN PRN Reason: Nausea/Vomiting Last Admin: 10/15/16 05:36 Dose: 4 mg Potassium Chloride (K-Dur 20 Meq Er Tab) 20 meq PO BID [facility] Last Admin: 10/15/16 09:32 Dose: 20 meq Saccharomyces Boulardii (Florastor) 250 mg PO BID [facility] Last Admin: 10/15/16 09:31 Dose: 250 mg Simethicone (Mylicon Liq) 40 mg PO QID PRN PRN Reason: Flatulence Vitamin D (Vitamin D 400 Intl Units Tab) 400 intlu PO DAILY [facility] Last Admin: 10/15/16 09:34 Dose: 400 intlu - Labs Labs: 10/15/16 06:05 10/15/16 06:05 PT 12.1 Seconds (9.8-13.1) 10/08/16 18:58 INR 1.2 (0.9-1.2) 10/08/16 18:58 APTT 29.7 Seconds (25.6-37.1) 10/08/16 18:58
--- NOTE | 2016-10-15 21:31 | CP.PCM.CON ---
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 he has a urologist whom he blast visited 5 months ago. at that time he was stable.here he was treated for a uti. He had several ct scans but on the ct of 10/13 there was no renal problems but a suspect bladder pathology. on 10/[address] with and without iv contrast of abdomen which demonstrated a right hydro but did not comment o0n the bladder as it was not part of the requested study. So i feel the need to do a cystoscopoy to clarify the concerns raised on the two prior cts. I will plan to do this procedure. the daughter is advised and agrees Past Patient History - Past Medical History & Family History Past Medical History?: Yes - Past Social History Smoking Status: Former Smoker - CARDIAC Hx Cardiac Disorders: Yes - PULMONARY Hx Respiratory Disorders: Yes - NEUROLOGICAL Hx Neurological Disorder: No - HEENT Hx HEENT Problems: Yes - RENAL Hx Chronic Kidney Disease: No - ENDOCRINE/METABOLIC Hx Endocrine Disorders: Yes - HEMATOLOGICAL/ONCOLOGICAL Hx Blood Disorders: No - INTEGUMENTARY Hx Dermatological Problems: No - MUSCULOSKELETAL/RHEUMATOLOGICAL Hx Musculoskeletal Disorders: Yes - GASTROINTESTINAL Hx Gastrointestinal Disorders: No - GENITOURINARY/GYNECOLOGICAL Hx Genitourinary Disorders: No - PSYCHIATRIC Hx Psychophysiologic Disorder: No - SURGICAL HISTORY Hx Coronary Artery Bypass Graft: Yes - ANESTHESIA Hx Anesthesia: Yes Hx Anesthesia Reactions: No Hx Malignant Hyperthermia: No Meds Allergies/Adverse Reactions: Allergies Allergy/AdvReac Type Severity Reaction Status Date / Time azithromycin Allergy ITCHING Verified 10/08/16 18:10 moxifloxacin [From Avelox] Allergy ITCHING Verified 10/08/16 18:10 - Medications Medications: Current Medications Acetaminophen (Tylenol 325mg Tab) 325 mg PO Q6 PRN PRN Reason: fever Last Admin: 10/10/16 16:30 Dose: 325 mg Atorvastatin Calcium (Lipitor) 10 mg PO DAILY [facility] Last Admin: 10/15/16 09:32 Dose: 10 mg Dextrose (Dextrose 50% Inj) 0 ml IV STAT PRN; Protocol PRN Reason: Hyglycemia Protocol Dextrose (Glutose 15) 0 gm PO ONCE PRN; Protocol PRN Reason: Hypoglycemia Protocol Enalapril Maleate (Vasotec) 5 mg PO DAILY [facility] Last Admin: 10/15/16 09:35 Dose: 5 mg Glucagon (Glucagen Diagnostic Kit) 0 mg IM STAT PRN; Protocol PRN Reason: Hypoglycemia Protocol Meropenem 500 mg/ Sodium (Chloride) 100 mls @ 100 mls/hr IVPB Q8 [facility] Last Admin: 10/15/16 17:01 Dose: 100 mls/hr Piperacillin Sod/Tazobactam (Sod 3.375 gm/ Sodium Chloride) 100 mls @ 100 mls/ hr IVPB Q8H [facility] Last Admin: 10/15/16 17:06 Dose: 100 mls/hr Lorazepam (Ativan) 0.5 mg IVP ONCE PRN PRN Reason: Anxiety Magnesium Chloride (Mag Delay 64mg) 1 tab PO DAILY [facility] Last Admin: 10/15/16 09:33 Dose: 1 tab Metoprolol Tartrate (Lopressor) 100 mg PO Q12 [facility] Last Admin: 10/15/16 21:03 Dose: 100 mg Metronidazole (Flagyl) 500 mg PO Q8 [facility] Last Admin: 10/15/16 17:03 Dose: 500 mg Multivitamins/Minerals (Therapeutic-M Tab) 1 tab PO DAILY [facility] Last Admin: 10/15/16 09:35 Dose: 1 tab Ondansetron HCl (Zofran Inj) 4 mg IVP Q6 PRN PRN Reason: Nausea/Vomiting Last Admin: 10/15/16 05:36 Dose: 4 mg Potassium Chloride (K-Dur 20 Meq Er Tab) 20 meq PO BID [facility] Last Admin: 10/15/16 17:02 Dose: 20 meq Saccharomyces Boulardii (Florastor) 250 mg PO BID [facility] Last Admin: 10/15/16 17:03 Dose: 250 mg Simethicone (Mylicon Liq) 40 mg PO QID PRN PRN Reason: Flatulence Vitamin D (Vitamin D 400 Intl Units Tab) 400 intlu PO DAILY [facility] Last Admin: 10/15/16 09:34 Dose: 400 intlu Results - Vital Signs Recent Vital Signs: Last Vital Signs Temp 97.3 F L 10/15/16 18:59 Pulse 79 10/15/16 21:03 Resp 18 10/15/16 18:59 BP 144/71 10/15/16 21:03 Pulse Ox 99 10/15/16 18:59 - Labs Result Diagrams: 10/15/16 06:05 10/15/16 06:05 Labs: Laboratory Results - last 24 hr 10/14/16 10/15/16 10/15/16 22:40 05:49 06:05 WBC 16.9 H RBC 3.96 L Hgb 11.3 L Hct 33.5 L MCV 84.5 MCH 28.5 MCHC 33.8 RDW 15.5 H Plt Count 277 MPV 7.1 L Neut % (Auto) 81.1 H Lymph % (Auto) 10.9 L [place] % (Auto) 7.0 Eos % (Auto) 0.8 Baso % (Auto) 0.2 Neut # 13.7 H Lymph # 1.8 [place] # 1.2 H Eos # 0.1 Baso # 0.0 Sodium Potassium Chloride Carbon Dioxide Anion Gap BUN Creatinine Est GFR ( Amer) Est GFR (Non-Af Amer) POC Glucose (mg/dL) 222 H 139 H Random Glucose Calcium Total Bilirubin Direct Bilirubin AST ALT Alkaline Phosphatase Total Protein Albumin Globulin Albumin/Globulin Ratio Amylase Lipase CA 19-9 Antigen 10/15/16 10/15/16 10/15/16 06:05 11:40 16:05 WBC RBC Hgb Hct MCV MCH MCHC RDW Plt Count MPV Neut % (Auto) Lymph % (Auto) [place] % (Auto) Eos % (Auto) Baso % (Auto) Neut # Lymph # [place] # Eos # Baso # Sodium 129 L Potassium 3.7 Chloride 104 Carbon Dioxide 17 L Anion Gap 12 BUN 16 Creatinine 1.1 Est GFR ( Amer) > 60 Est GFR (Non-Af Amer) > 60 POC Glucose (mg/dL) 182 H 138 H Random Glucose 135 H Calcium 7.1 L Total Bilirubin 0.6 Direct Bilirubin 0.4 AST 23 ALT 31 Alkaline Phosphatase 83 Total Protein 6.1 L Albumin 2.7 L Globulin 3.4 Albumin/Globulin Ratio 0.8 L Amylase 81 Lipase 174 CA 19-9 Antigen 87.0 H
[2016-10-16] MEDS: Meropenem 500 MG in Sodium Chloride 0.9% 100 ML IVPB SCH ×3 (00:17→17:34)
[2016-10-16] MEDS: Piperacillin/Tazobact 3.375 GM in Sodium Chloride 0.9% 100 ML IVPB SCH ×3 (01:26→16:36)
[2016-10-16 06:44] LABS: ALKALINE PHOSPHATASE 83 U/L (38-126); ALT/SGPT 27 U/L (21-72); AST/SGOT 21 U/L (17-59); BILIRUBIN,TOTAL 0.6 mg/dl (0.2-1.3); BLOOD UREA NITROGEN 14 mg/dl (9-20); CALCIUM 7.4 mg/dL (8.4-10.2); CARBON DIOXIDE 13 mmol/L (22-30); CHLORIDE 109 mmol/L (98-107); GFR AFRICAN-AMERICAN > 60; GLUCOSE,RANDOM 128 mg/dL (75-110); POTASSIUM 3.9 MMOL/L (3.6-5.0); SODIUM 131 mmol/l (132-148); TOTAL PROTEIN 6.3 G/DL (6.3-8.2)
[2016-10-16 06:48] LABS: ALB/GLOB RATIO 0.9 (1.0-2.1)
[2016-10-16 06:58] LABS: BASO # 0.1 K/uL (0.0-0.2); BASO % 0.5 % (0.0-2.0); EOS # 0.2 K/uL (0.0-0.7); HEMATOCRIT 32.6 % (35.0-51.0); LYMPH # 1.9 K/uL (1.0-4.3); LYMPH % 11.7 % (20.0-40.0); MEAN CELL VOLUME 86.5 fl (80.0-94.0); MEAN CORPUSCULAR HEMOGLOBIN 28.2 pg (27.0-31.0); MEAN CORPUSCULAR HGB CONC 32.6 g/dL (33.0-37.0); MEAN PLATELET VOLUME 7.2 fl (7.2-11.7); MONO # 0.9 K/uL (0.0-0.8); MONO % 5.7 % (0.0-10.0); NEUT # 13.5 K/uL (1.8-7.0); NEUT % 81.1 % (50.0-75.0); RED CELL DISTRIBUTION WIDTH 15.7 % (11.5-14.5); WHITE BLOOD COUNT 16.6 K/uL (4.8-10.8)
[2016-10-16] MEDS: Saccharomyces Boulardi 250 mg Cap PO SCH ×2 (10:04→17:35)
[2016-10-16] MEDS: Potassium Chloride 20 mEq ER Tab PO SCH ×2 (10:04→17:35)
[2016-10-16] MEDS: SlowMag 1 TAB PO SCH (10:04)
[2016-10-16] MEDS: Multivitamin With Minerals Tab PO SCH (10:05)
[2016-10-16] MEDS: Cholecalciferol 400 Intl Units Tab PO SCH (10:05)
--- NOTE | 2016-10-16 10:57 | CP.PCM.PN ---
Subjective - Date & Time of Evaluation Date of Evaluation: 10/16/16 Time of Evaluation: 10:00 - Subjective Subjective: Pt seen resting in bed still with some abdominal pain could not complete test yesterday 2* to anxiety will try again today WBC: 16,600 Objective - Vital Signs/Intake and Output Vital Signs (last 24 hours): Temp Pulse Resp BP Pulse Ox 97.5 F L 69 20 157/79 H 100 10/16/16 08:34 10/16/16 08:34 10/16/16 08:34 10/16/16 08:34 10/16/16 08:34 - Medications Medications: Current Medications Acetaminophen (Tylenol 325mg Tab) 325 mg PO Q6 PRN PRN Reason: fever Last Admin: 10/10/16 16:30 Dose: 325 mg Atorvastatin Calcium (Lipitor) 10 mg PO DAILY [facility] Last Admin: 10/16/16 10:04 Dose: Not Given Dextrose (Dextrose 50% Inj) 0 ml IV STAT PRN; Protocol PRN Reason: Hyglycemia Protocol Dextrose (Glutose 15) 0 gm PO ONCE PRN; Protocol PRN Reason: Hypoglycemia Protocol Enalapril Maleate (Vasotec) 5 mg PO DAILY [facility] Last Admin: 10/16/16 10:05 Dose: Not Given Glucagon (Glucagen Diagnostic Kit) 0 mg IM STAT PRN; Protocol PRN Reason: Hypoglycemia Protocol Meropenem 500 mg/ Sodium (Chloride) 100 mls @ 100 mls/hr IVPB Q8 [facility] Last Admin: 10/16/16 00:17 Dose: 100 mls/hr Piperacillin Sod/Tazobactam (Sod 3.375 gm/ Sodium Chloride) 100 mls @ 100 mls/ hr IVPB Q8H [facility] Last Admin: 10/16/16 01:26 Dose: 100 mls/hr Lorazepam (Ativan) 0.5 mg IVP ONCE PRN PRN Reason: Anxiety Magnesium Chloride (Mag Delay 64mg) 1 tab PO DAILY [facility] Last Admin: 10/16/16 10:04 Dose: Not Given Metoprolol Tartrate (Lopressor) 100 mg PO Q12 [facility] Last Admin: 10/16/16 10:04 Dose: Not Given Metronidazole (Flagyl) 500 mg PO Q8 [facility] Last Admin: 10/16/16 10:04 Dose: Not Given Multivitamins/Minerals (Therapeutic-M Tab) 1 tab PO DAILY [facility] Last Admin: 10/16/16 10:05 Dose: Not Given Ondansetron HCl (Zofran Inj) 4 mg IVP Q6 PRN PRN Reason: Nausea/Vomiting Last Admin: 10/15/16 05:36 Dose: 4 mg Potassium Chloride (K-Dur 20 Meq Er Tab) 20 meq PO BID [facility] Last Admin: 10/16/16 10:04 Dose: Not Given Saccharomyces Boulardii (Florastor) 250 mg PO BID [facility] Last Admin: 10/16/16 10:04 Dose: Not Given Simethicone (Mylicon Liq) 40 mg PO QID PRN PRN Reason: Flatulence Vitamin D (Vitamin D 400 Intl Units Tab) 400 intlu PO DAILY [facility] Last Admin: 10/16/16 10:05 Dose: Not Given - Labs Labs: 10/16/16 06:10 10/16/16 06:10 PT 12.1 Seconds (9.8-13.1) 10/08/16 18:58 INR 1.2 (0.9-1.2) 10/08/16 18:58 APTT 29.7 Seconds (25.6-37.1) 10/08/16 18:58
[2016-10-16] MEDS ORDERED: Sodium Chloride 0.9% 0 ML IV ONE (15:20)
[2016-10-16] MEDS ORDERED: Gadodiamide 287 MG/ML VIAL (15ML) IV ONE (15:20)
--- NOTE | 2016-10-16 19:37 | CP.PCM.PN ---
Subjective - Date & Time of Evaluation Date of Evaluation: 10/16/16 Time of Evaluation: 19:35 - Subjective Subjective: I D NOTE UNABLE TO HOLD STILL FOR MRA GI TO EVALUATE FOR FURTHER STUDIES WBC IS STILL 16 UROLOGY HAS SEEN AND MAY NEED TO DO CYSTO NO CHANGE IN ANTIBIOTIC COVERAGE Objective - Vital Signs/Intake and Output Vital Signs (last 24 hours): Temp Pulse Resp BP Pulse Ox 97.3 F L 146 H 20 148/70 100 10/16/16 19:01 10/16/16 19:01 10/16/16 19:01 10/16/16 19:01 10/16/16 19:01 - Medications Medications: Current Medications Acetaminophen (Tylenol 325mg Tab) 325 mg PO Q6 PRN PRN Reason: fever Last Admin: 10/10/16 16:30 Dose: 325 mg Atorvastatin Calcium (Lipitor) 10 mg PO DAILY [facility] Last Admin: 10/16/16 10:04 Dose: Not Given Dextrose (Dextrose 50% Inj) 0 ml IV STAT PRN; Protocol PRN Reason: Hyglycemia Protocol Dextrose (Glutose 15) 0 gm PO ONCE PRN; Protocol PRN Reason: Hypoglycemia Protocol Enalapril Maleate (Vasotec) 5 mg PO DAILY [facility] Last Admin: 10/16/16 18:43 Dose: 5 mg Glucagon (Glucagen Diagnostic Kit) 0 mg IM STAT PRN; Protocol PRN Reason: Hypoglycemia Protocol Meropenem 500 mg/ Sodium (Chloride) 100 mls @ 100 mls/hr IVPB Q8 [facility] Last Admin: 10/16/16 17:34 Dose: 100 mls/hr Piperacillin Sod/Tazobactam (Sod 3.375 gm/ Sodium Chloride) 100 mls @ 100 mls/ hr IVPB Q8H [facility] Last Admin: 10/16/16 16:36 Dose: 100 mls/hr Lorazepam (Ativan) 0.5 mg IVP ONCE PRN PRN Reason: Anxiety Last Admin: 10/16/16 14:34 Dose: 0.5 mg Magnesium Chloride (Mag Delay 64mg) 1 tab PO DAILY [facility] Last Admin: 10/16/16 10:04 Dose: Not Given Metoprolol Tartrate (Lopressor) 100 mg PO Q12 [facility] Last Admin: 10/16/16 18:43 Dose: 100 mg Metoprolol Tartrate (Lopressor) 100 mg PO PRN PRN PRN Reason: HR > 100 at 20:00 PM Metronidazole (Flagyl) 500 mg PO Q8 [facility] Last Admin: 10/16/16 17:35 Dose: 500 mg Multivitamins/Minerals (Therapeutic-M Tab) 1 tab PO DAILY [facility] Last Admin: 10/16/16 10:05 Dose: Not Given Ondansetron HCl (Zofran Inj) 4 mg IVP Q6 PRN PRN Reason: Nausea/Vomiting Last Admin: 10/16/16 13:00 Dose: 4 mg Potassium Chloride (K-Dur 20 Meq Er Tab) 20 meq PO BID [facility] Last Admin: 10/16/16 17:35 Dose: 20 meq Saccharomyces Boulardii (Florastor) 250 mg PO BID [facility] Last Admin: 10/16/16 17:35 Dose: 250 mg Simethicone (Mylicon Liq) 40 mg PO QID PRN PRN Reason: Flatulence Vitamin D (Vitamin D 400 Intl Units Tab) 400 intlu PO DAILY [facility] Last Admin: 10/16/16 10:05 Dose: Not Given - Labs Labs: 10/16/16 06:10 10/16/16 06:10 PT 12.1 Seconds (9.8-13.1) 10/08/16 18:58 INR 1.2 (0.9-1.2) 10/08/16 18:58 APTT 29.7 Seconds (25.6-37.1) 10/08/16 18:58
--- NOTE | 2016-10-16 21:07 | CP.PCM.PN ---
<Yousuf Scott - Last Filed: 10/16/16 21:08> Subjective - Date & Time of Evaluation Date of Evaluation: 10/16/16 Time of Evaluation: 19:00 - Subjective Subjective: PGY5 GI Fellow Progress Note Patient seen and examined bedside this morning and returned again this evening to evaluate patient with Dr Madrid. Family at bedside during evaluation. The patient has no new complaints. Unfortunately he was unable to tolerate MRCP and could not complete study. 12 system ROS performed and negative except where stated. Objective - Vital Signs/Intake and Output Vital Signs (last 24 hours): Temp Pulse Resp BP Pulse Ox 97.3 F L 146 H 20 148/70 100 10/16/16 19:01 10/16/16 19:01 10/16/16 19:01 10/16/16 19:01 10/16/16 19:01 - Medications Medications: Current Medications Acetaminophen (Tylenol 325mg Tab) 325 mg PO Q6 PRN PRN Reason: fever Last Admin: 10/10/16 16:30 Dose: 325 mg Atorvastatin Calcium (Lipitor) 10 mg PO DAILY [facility] Last Admin: 10/16/16 10:04 Dose: Not Given Dextrose (Dextrose 50% Inj) 0 ml IV STAT PRN; Protocol PRN Reason: Hyglycemia Protocol Dextrose (Glutose 15) 0 gm PO ONCE PRN; Protocol PRN Reason: Hypoglycemia Protocol Enalapril Maleate (Vasotec) 5 mg PO DAILY [facility] Last Admin: 10/16/16 18:43 Dose: 5 mg Glucagon (Glucagen Diagnostic Kit) 0 mg IM STAT PRN; Protocol PRN Reason: Hypoglycemia Protocol Meropenem 500 mg/ Sodium (Chloride) 100 mls @ 100 mls/hr IVPB Q8 [facility] Last Admin: 10/16/16 17:34 Dose: 100 mls/hr Piperacillin Sod/Tazobactam (Sod 3.375 gm/ Sodium Chloride) 100 mls @ 100 mls/ hr IVPB Q8H [facility] Last Admin: 10/16/16 16:36 Dose: 100 mls/hr Lorazepam (Ativan) 0.5 mg IVP ONCE PRN PRN Reason: Anxiety Last Admin: 10/16/16 14:34 Dose: 0.5 mg Magnesium Chloride (Mag Delay 64mg) 1 tab PO DAILY [facility] Last Admin: 10/16/16 10:04 Dose: Not Given Metoprolol Tartrate (Lopressor) 100 mg PO Q12 [facility] Last Admin: 10/16/16 18:43 Dose: 100 mg Metronidazole (Flagyl) 500 mg PO Q8 [facility] Last Admin: 10/16/16 17:35 Dose: 500 mg Multivitamins/Minerals (Therapeutic-M Tab) 1 tab PO DAILY [facility] Last Admin: 10/16/16 10:05 Dose: Not Given Ondansetron HCl (Zofran Inj) 4 mg IVP Q6 PRN PRN Reason: Nausea/Vomiting Last Admin: 10/16/16 13:00 Dose: 4 mg Potassium Chloride (K-Dur 20 Meq Er Tab) 20 meq PO BID [facility] Last Admin: 10/16/16 17:35 Dose: 20 meq Saccharomyces Boulardii (Florastor) 250 mg PO BID [facility] Last Admin: 10/16/16 17:35 Dose: 250 mg Simethicone (Mylicon Liq) 40 mg PO QID PRN PRN Reason: Flatulence Vitamin D (Vitamin D 400 Intl Units Tab) 400 intlu PO DAILY [facility] Last Admin: 10/16/16 10:05 Dose: Not Given - Labs Labs: 10/16/16 06:10 10/16/16 06:10 PT 12.1 Seconds (9.8-13.1) 10/08/16 18:58 INR 1.2 (0.9-1.2) 10/08/16 18:58 APTT 29.7 Seconds (25.6-37.1) 10/08/16 18:58 - Constitutional Appears: Non-toxic, No Acute Distress - Eye Exam Eye Exam: EOMI, PERRL - ENT Exam ENT Exam: Mucous Membranes Moist - Respiratory Exam Respiratory Exam: Clear to Ausculation Bilateral. absent: Rales, Rhonchi, Wheezes - Cardiovascular Exam Cardiovascular Exam: RRR, +S1, +S2 - GI/Abdominal Exam GI & Abdominal Exam: Soft, Tenderness (minimal), Normal Bowel Sounds. absent: Distended, Firm, Guarding, Rigid - Extremities Exam Extremities Exam: Normal Inspection. absent: Pedal Edema - Neurological Exam Neurological Exam: Alert, Awake, Oriented x3 - Psychiatric Exam Psychiatric exam: Normal Affect, Normal Mood - Skin Skin Exam: Dry, Warm Assessment and Plan - Assessment and Plan (Free Text) Assessment: 76 yr old M with extensive cardiac history with CAD, CABG, COPD with frequent PNA, and bronchitis, with two recent episodes of UTI, admitted with sepsis secondary to E. coli bacteremia in setting of pyelonephritis now complaining with abdominal pain, distension and chronic diarrhea with oil droplets and loss of appetite. LFT normal but CT contrast concerning for intrahepatic dilatation and CBD dilatation with layering stones in gallbladder. No pancreatic head mass with normal pancreas on imaging thusfar Plan: -Stool cx, O&P negative -Awaiting stool electrolytes to calculate stool gap to help differentiate between osmotic and secretory diarrhea -Pt could not tolerate MRCP due to claustrophobia despite administration of ativan prior to MRI -WIll have patient transferred to [facility] tomorrow for EGD/EUS and possible ERCP at noon tomorrow -Heart healthy diet for now, low fat - NPO past MN for above procedure -Hyponatremia correction as per primary team -Discussed plan with the patients family including and daughter at bedside who agree to above and assisted in translation (Janine) <Maurice Madrid MD - Last Filed: 10/16/16 21:36> Objective - Vital Signs/Intake and Output Vital Signs (last 24 hours): Temp Pulse Resp BP Pulse Ox 97.3 F L 146 H 20 148/70 100 10/16/16 19:01 10/16/16 19:01 10/16/16 19:01 10/16/16 19:01 10/16/16 19:01 - Medications Medications: Current Medications Acetaminophen (Tylenol 325mg Tab) 325 mg PO Q6 PRN PRN Reason: fever Last Admin: 10/10/16 16:30 Dose: 325 mg Atorvastatin Calcium (Lipitor) 10 mg PO DAILY [facility] Last Admin: 10/16/16 10:04 Dose: Not Given Dextrose (Dextrose 50% Inj) 0 ml IV STAT PRN; Protocol PRN Reason: Hyglycemia Protocol Dextrose (Glutose 15) 0 gm PO ONCE PRN; Protocol PRN Reason: Hypoglycemia Protocol Enalapril Maleate (Vasotec) 5 mg PO DAILY [facility] Last Admin: 10/16/16 18:43 Dose: 5 mg Glucagon (Glucagen Diagnostic Kit) 0 mg IM STAT PRN; Protocol PRN Reason: Hypoglycemia Protocol Meropenem 500 mg/ Sodium (Chloride) 100 mls @ 100 mls/hr IVPB Q8 [facility] Last Admin: 10/16/16 17:34 Dose: 100 mls/hr Piperacillin Sod/Tazobactam (Sod 3.375 gm/ Sodium Chloride) 100 mls @ 100 mls/ hr IVPB Q8H [facility] Last Admin: 10/16/16 16:36 Dose: 100 mls/hr Lorazepam (Ativan) 0.5 mg IVP ONCE PRN PRN Reason: Anxiety Last Admin: 10/16/16 14:34 Dose: 0.5 mg Magnesium Chloride (Mag Delay 64mg) 1 tab PO DAILY [facility] Last Admin: 10/16/16 10:04 Dose: Not Given Metoprolol Tartrate (Lopressor) 100 mg PO Q12 [facility] Last Admin: 10/16/16 18:43 Dose: 100 mg Metronidazole (Flagyl) 500 mg PO Q8 [facility] Last Admin: 10/16/16 17:35 Dose: 500 mg Multivitamins/Minerals (Therapeutic-M Tab) 1 tab PO DAILY [facility] Last Admin: 10/16/16 10:05 Dose: Not Given Ondansetron HCl (Zofran Inj) 4 mg IVP Q6 PRN PRN Reason: Nausea/Vomiting Last Admin: 10/16/16 13:00 Dose: 4 mg Potassium Chloride (K-Dur 20 Meq Er Tab) 20 meq PO BID [facility] Last Admin: 10/16/16 17:35 Dose: 20 meq Saccharomyces Boulardii (Florastor) 250 mg PO BID [facility] Last Admin: 10/16/16 17:35 Dose: 250 mg Simethicone (Mylicon Liq) 40 mg PO QID PRN PRN Reason: Flatulence Vitamin D (Vitamin D 400 Intl Units Tab) 400 intlu PO DAILY [facility] Last Admin: 10/16/16 10:05 Dose: Not Given - Labs Labs: 10/16/16 06:10 10/16/16 06:10 PT 12.1 Seconds (9.8-13.1) 10/08/16 18:58 INR 1.2 (0.9-1.2) 10/08/16 18:58 APTT 29.7 Seconds (25.6-37.1) 10/08/16 18:58 Attending/Attestation - Attestation I have personally seen and examined this patient.: Yes I have fully participated in the care of the patient.: Yes I have reviewed all pertinent clinical information, including history, physical exam and plan: Yes Notes (Text): 10/16/16 21:34 patient seen with GI fellow at bedside this evening. This is a 76 yr old M with extensive cardiac history with CAD, CABG, COPD with frequent PNA, and bronchitis , with two recent episodes of UTI, admitted with sepsis secondary to E. coli bacteremia in setting of pyelonephritis now complaining with abdominal pain, distension and chronic diarrhea with oil droplets and loss of appetite. LFT normal but CT contrast concerning for Intrahepatic dilatation and CBD dilatation with layering stones in gallbladder. No pancreatic head mass with normal pancreas. Unable to do MRCP due to claustrophobia. - Stool infectious work up negative - Stool electrolytes to differentiate osmotic vs secretory diarrhea - Continue antibiotics as per ID - Low fat diet - IVF as needed - Scheduled for EGD/EUS/ ERCP at [facility] tomorrow - transport patient at 10 am - GI/DVt prophylaxis - Discussed plan with the daughter and nursing staff
[2016-10-17] MEDS: Meropenem 500 MG in Sodium Chloride 0.9% 100 ML IVPB SCH ×3 (00:05→17:56)
[2016-10-17] MEDS: Piperacillin/Tazobact 3.375 GM in Sodium Chloride 0.9% 100 ML IVPB SCH ×3 (01:08→17:57)
[2016-10-17 06:49] LABS: BASO # 0.1 K/uL (0.0-0.2); BASO % 0.5 % (0.0-2.0); EOS # 0.1 K/uL (0.0-0.7); EOS % 0.8 % (0.0-4.0); HEMATOCRIT 31.1 % (35.0-51.0); LYMPH # 2.1 K/uL (1.0-4.3); MEAN CELL VOLUME 84.8 fl (80.0-94.0); MEAN CORPUSCULAR HEMOGLOBIN 28.3 pg (27.0-31.0); MEAN CORPUSCULAR HGB CONC 33.4 g/dL (33.0-37.0); MONO # 0.7 K/uL (0.0-0.8); MONO % 4.8 % (0.0-10.0); NEUT # 12.1 K/uL (1.8-7.0); NEUT % 79.9 % (50.0-75.0); RED CELL DISTRIBUTION WIDTH 15.5 % (11.5-14.5); WHITE BLOOD COUNT 15.1 K/uL (4.8-10.8)
[2016-10-17 06:53] LABS: ALKALINE PHOSPHATASE 83 U/L (38-126); ALT/SGPT 27 U/L (21-72); AST/SGOT 25 U/L (17-59); BILIRUBIN,TOTAL 0.6 mg/dl (0.2-1.3); BLOOD UREA NITROGEN 12 mg/dl (9-20); CALCIUM 7.7 mg/dL (8.4-10.2); CARBON DIOXIDE 16 mmol/L (22-30); CHLORIDE 108 mmol/L (98-107); GFR AFRICAN-AMERICAN > 60; GLUCOSE,RANDOM 123 mg/dL (75-110); POTASSIUM 3.8 MMOL/L (3.6-5.0); SODIUM 134 mmol/l (132-148); TOTAL PROTEIN 6.5 G/DL (6.3-8.2)
[2016-10-17 06:57] LABS: ALB/GLOB RATIO 0.9 (1.0-2.1)
[2016-10-17 07:14] LABS: PARTIAL THROMBOPLASTIN TIME 35.5 Seconds (25.6-37.1)
[2016-10-17] MEDS: Potassium Chloride 20 mEq ER Tab PO SCH ×2 (09:38→17:56)
[2016-10-17] MEDS: Multivitamin With Minerals Tab PO SCH (09:38)
[2016-10-17] MEDS: SlowMag 1 TAB PO SCH (09:38)
[2016-10-17] MEDS: Cholecalciferol 400 Intl Units Tab PO SCH (09:38)
[2016-10-17] MEDS: Saccharomyces Boulardi 250 mg Cap PO SCH ×2 (09:39→17:56)
--- NOTE | 2016-10-17 11:25 | CP.PCM.PN ---
Subjective - Date & Time of Evaluation Date of Evaluation: 10/17/16 Time of Evaluation: 10:00 - Subjective Subjective: For the second time the pt could not undergo the MRCP because of claustrphobia Plan is to do ERCP at [facility] with anesthesia standby Objective - Vital Signs/Intake and Output Vital Signs (last 24 hours): Temp Pulse Resp BP Pulse Ox 97.8 F 131 H 18 134/86 100 10/17/16 08:00 10/17/16 09:33 10/17/16 08:00 10/17/16 09:33 10/17/16 08:00 - Medications Medications: Current Medications Acetaminophen (Tylenol 325mg Tab) 325 mg PO Q6 PRN PRN Reason: fever Last Admin: 10/10/16 16:30 Dose: 325 mg Atorvastatin Calcium (Lipitor) 10 mg PO DAILY [facility] Last Admin: 10/17/16 09:38 Dose: Not Given Dextrose (Dextrose 50% Inj) 0 ml IV STAT PRN; Protocol PRN Reason: Hyglycemia Protocol Dextrose (Glutose 15) 0 gm PO ONCE PRN; Protocol PRN Reason: Hypoglycemia Protocol Enalapril Maleate (Vasotec) 5 mg PO DAILY [facility] Last Admin: 10/17/16 09:33 Dose: 5 mg Glucagon (Glucagen Diagnostic Kit) 0 mg IM STAT PRN; Protocol PRN Reason: Hypoglycemia Protocol Meropenem 500 mg/ Sodium (Chloride) 100 mls @ 100 mls/hr IVPB Q8 [facility] Last Admin: 10/17/16 09:05 Dose: 100 mls/hr Piperacillin Sod/Tazobactam (Sod 3.375 gm/ Sodium Chloride) 100 mls @ 100 mls/ hr IVPB Q8H [facility] Last Admin: 10/17/16 09:05 Dose: 100 mls/hr Lorazepam (Ativan) 0.5 mg IVP ONCE PRN PRN Reason: Anxiety Last Admin: 10/16/16 14:34 Dose: 0.5 mg Magnesium Chloride (Mag Delay 64mg) 1 tab PO DAILY [facility] Last Admin: 10/17/16 09:38 Dose: Not Given Metoprolol Succinate (Toprol Xl) 100 mg PO DAILY [facility] Metronidazole (Flagyl) 500 mg PO Q8 [facility] Last Admin: 10/17/16 09:39 Dose: Not Given Multivitamins/Minerals (Therapeutic-M Tab) 1 tab PO DAILY [facility] Last Admin: 10/17/16 09:38 Dose: Not Given Ondansetron HCl (Zofran Inj) 4 mg IVP Q6 PRN PRN Reason: Nausea/Vomiting Last Admin: 10/16/16 13:00 Dose: 4 mg Potassium Chloride (K-Dur 20 Meq Er Tab) 20 meq PO BID [facility] Last Admin: 10/17/16 09:38 Dose: Not Given Saccharomyces Boulardii (Florastor) 250 mg PO BID [facility] Last Admin: 10/17/16 09:39 Dose: Not Given Simethicone (Mylicon Liq) 40 mg PO QID PRN PRN Reason: Flatulence Vitamin D (Vitamin D 400 Intl Units Tab) 400 intlu PO DAILY [facility] Last Admin: 10/17/16 09:38 Dose: Not Given - Labs Labs: 10/17/16 06:15 10/17/16 06:15 PT 15.3 Seconds (9.8-13.1) H 10/17/16 06:15 INR 1.5 (0.9-1.2) H 10/17/16 06:15 APTT 35.5 Seconds (25.6-37.1) 10/17/16 06:15
[2016-10-17 12:36] VITALS: BMI 23.8
--- NOTE | 2016-10-17 13:50 | CP.PCM.PN ---
Subjective - Date & Time of Evaluation Date of Evaluation: 10/17/16 Time of Evaluation: 10:00 - Subjective Subjective: The patient is medically cleared for the procedure with general anesthesia Objective - Vital Signs/Intake and Output Vital Signs (last 24 hours): Temp Pulse Resp BP Pulse Ox 97.8 F 131 H 18 134/86 100 10/17/16 08:00 10/17/16 09:33 10/17/16 08:00 10/17/16 09:33 10/17/16 08:00 - Medications Medications: Current Medications Acetaminophen (Tylenol 325mg Tab) 325 mg PO Q6 PRN PRN Reason: fever Last Admin: 10/10/16 16:30 Dose: 325 mg Atorvastatin Calcium (Lipitor) 10 mg PO DAILY [facility] Last Admin: 10/17/16 09:38 Dose: Not Given Dextrose (Dextrose 50% Inj) 0 ml IV STAT PRN; Protocol PRN Reason: Hyglycemia Protocol Dextrose (Glutose 15) 0 gm PO ONCE PRN; Protocol PRN Reason: Hypoglycemia Protocol Enalapril Maleate (Vasotec) 5 mg PO DAILY [facility] Last Admin: 10/17/16 09:33 Dose: 5 mg Glucagon (Glucagen Diagnostic Kit) 0 mg IM STAT PRN; Protocol PRN Reason: Hypoglycemia Protocol Meropenem 500 mg/ Sodium (Chloride) 100 mls @ 100 mls/hr IVPB Q8 [facility] Last Admin: 10/17/16 09:05 Dose: 100 mls/hr Piperacillin Sod/Tazobactam (Sod 3.375 gm/ Sodium Chloride) 100 mls @ 100 mls/ hr IVPB Q8H [facility] Last Admin: 10/17/16 09:05 Dose: 100 mls/hr Lorazepam (Ativan) 0.5 mg IVP ONCE PRN PRN Reason: Anxiety Last Admin: 10/16/16 14:34 Dose: 0.5 mg Magnesium Chloride (Mag Delay 64mg) 1 tab PO DAILY [facility] Last Admin: 10/17/16 09:38 Dose: Not Given Metoprolol Succinate (Toprol Xl) 100 mg PO DAILY [facility] Metronidazole (Flagyl) 500 mg PO Q8 [facility] Last Admin: 10/17/16 09:39 Dose: Not Given Multivitamins/Minerals (Therapeutic-M Tab) 1 tab PO DAILY [facility] Last Admin: 10/17/16 09:38 Dose: Not Given Ondansetron HCl (Zofran Inj) 4 mg IVP Q6 PRN PRN Reason: Nausea/Vomiting Last Admin: 10/16/16 13:00 Dose: 4 mg Potassium Chloride (K-Dur 20 Meq Er Tab) 20 meq PO BID [facility] Last Admin: 10/17/16 09:38 Dose: Not Given Saccharomyces Boulardii (Florastor) 250 mg PO BID [facility] Last Admin: 10/17/16 09:39 Dose: Not Given Simethicone (Mylicon Liq) 40 mg PO QID PRN PRN Reason: Flatulence Vitamin D (Vitamin D 400 Intl Units Tab) 400 intlu PO DAILY [facility] Last Admin: 10/17/16 09:38 Dose: Not Given - Labs Labs: 10/17/16 06:15 10/17/16 06:15 PT 15.3 Seconds (9.8-13.1) H 10/17/16 06:15 INR 1.5 (0.9-1.2) H 10/17/16 06:15 APTT 35.5 Seconds (25.6-37.1) 10/17/16 06:15
--- NOTE | 2016-10-17 15:16 | CP.PCM.PCO ---
Assessment and Plan - Assessment and Plan (Free Text) Assessment: pt. s/p EGD- + Deep crater ulcer as per antiplatelet/ anticoagulation contraindicated - notified cont. metoprolol rate control
[2016-10-17] MEDS: Pantoprazole 40 mg EC Tab PO SCH (17:56)
--- NOTE | 2016-10-17 18:14 | CP.PCM.PN ---
Subjective - Date & Time of Evaluation Date of Evaluation: 10/17/16 Time of Evaluation: 18:14 - Subjective Subjective: I D NOTE ATTEMPTED TO SEE EARLIER IN DAY PATIENT WAS AT A PROCEDURE WBCIS 15.STILL DECREASING SLOWLY Objective - Vital Signs/Intake and Output Vital Signs (last 24 hours): Temp Pulse Resp BP Pulse Ox 97.4 F L 122 H 18 152/90 H 100 10/17/16 16:22 10/17/16 16:22 10/17/16 16:22 10/17/16 16:22 10/17/16 16:22 - Medications Medications: Current Medications Acetaminophen (Tylenol 325mg Tab) 325 mg PO Q6 PRN PRN Reason: fever Last Admin: 10/10/16 16:30 Dose: 325 mg Atorvastatin Calcium (Lipitor) 10 mg PO DAILY [facility] Last Admin: 10/17/16 09:38 Dose: Not Given Dextrose (Dextrose 50% Inj) 0 ml IV STAT PRN; Protocol PRN Reason: Hyglycemia Protocol Dextrose (Glutose 15) 0 gm PO ONCE PRN; Protocol PRN Reason: Hypoglycemia Protocol Enalapril Maleate (Vasotec) 5 mg PO DAILY [facility] Last Admin: 10/17/16 09:33 Dose: 5 mg Glucagon (Glucagen Diagnostic Kit) 0 mg IM STAT PRN; Protocol PRN Reason: Hypoglycemia Protocol Meropenem 500 mg/ Sodium (Chloride) 100 mls @ 100 mls/hr IVPB Q8 [facility] Last Admin: 10/17/16 17:56 Dose: 100 mls/hr Piperacillin Sod/Tazobactam (Sod 3.375 gm/ Sodium Chloride) 100 mls @ 100 mls/ hr IVPB Q8H [facility] Last Admin: 10/17/16 17:57 Dose: 100 mls/hr Lorazepam (Ativan) 0.5 mg IVP ONCE PRN PRN Reason: Anxiety Last Admin: 10/16/16 14:34 Dose: 0.5 mg Magnesium Chloride (Mag Delay 64mg) 1 tab PO DAILY [facility] Last Admin: 10/17/16 09:38 Dose: Not Given Metoprolol Succinate (Toprol Xl) 100 mg PO DAILY [facility] Metronidazole (Flagyl) 500 mg PO Q8 [facility] Last Admin: 10/17/16 17:56 Dose: 500 mg Multivitamins/Minerals (Therapeutic-M Tab) 1 tab PO DAILY [facility] Last Admin: 10/17/16 09:38 Dose: Not Given Ondansetron HCl (Zofran Inj) 4 mg IVP Q6 PRN PRN Reason: Nausea/Vomiting Last Admin: 10/16/16 13:00 Dose: 4 mg [facility]ole [facility] Admin: 10/17/16 17:56 Dose: 40 mg Potassium Chloride (K-Dur 20 Meq Er Tab) 20 meq PO BID [facility] Last Admin: 10/17/16 17:56 Dose: 20 meq Saccharomyces Boulardii (Florastor) 250 mg PO BID [facility] Last Admin: 10/17/16 17:56 Dose: 250 mg Simethicone (Mylicon Liq) 40 mg PO QID PRN PRN Reason: Flatulence Vitamin D (Vitamin D 400 Intl Units Tab) 400 intlu PO DAILY [facility] Last Admin: 10/17/16 09:38 Dose: Not Given - Labs Labs: 10/17/16 06:15 10/17/16 06:15 PT 15.3 Seconds (9.8-13.1) H 10/17/16 06:15 INR 1.5 (0.9-1.2) H 10/17/16 06:15 APTT 35.5 Seconds (25.6-37.1) 10/17/16 06:15
[2016-10-17] MEDS ORDERED: Metoprolol Succinate 100 mg XL Tab PO ONE (20:30)
[2016-10-18] MEDS: Meropenem 500 MG in Sodium Chloride 0.9% 100 ML IVPB SCH ×4 (00:19→20:52)
[2016-10-18] MEDS: Piperacillin/Tazobact 3.375 GM in Sodium Chloride 0.9% 100 ML IVPB SCH ×3 (01:40→17:29)
[2016-10-18 07:01] LABS: BASO # 0.1 K/uL (0.0-0.2); BASO % 0.5 % (0.0-2.0); EOS # 0.1 K/uL (0.0-0.7); EOS % 0.8 % (0.0-4.0); HEMATOCRIT 32.6 % (35.0-51.0); LYMPH # 1.9 K/uL (1.0-4.3); LYMPH % 11.6 % (20.0-40.0); MEAN CELL VOLUME 84.9 fl (80.0-94.0); MEAN CORPUSCULAR HEMOGLOBIN 28.1 pg (27.0-31.0); MEAN CORPUSCULAR HGB CONC 33.1 g/dL (33.0-37.0); MEAN PLATELET VOLUME 6.9 fl (7.2-11.7); MONO # 0.8 K/uL (0.0-0.8); MONO % 4.8 % (0.0-10.0); NEUT # 13.4 K/uL (1.8-7.0); NEUT % 82.3 % (50.0-75.0); WHITE BLOOD COUNT 16.2 K/uL (4.8-10.8)
[2016-10-18 07:18] LABS: ALB/GLOB RATIO 0.8 (1.0-2.1); ALKALINE PHOSPHATASE 71 U/L (38-126); ALT/SGPT 29 U/L (21-72); AST/SGOT 17 U/L (17-59); BILIRUBIN,TOTAL 0.5 mg/dl (0.2-1.3); BLOOD UREA NITROGEN 12 mg/dl (9-20); CALCIUM 8.1 mg/dL (8.4-10.2); CARBON DIOXIDE 18 mmol/L (22-30); CHLORIDE 107 mmol/L (98-107); GFR AFRICAN-AMERICAN > 60; GLUCOSE,RANDOM 150 mg/dL (75-110); POTASSIUM 3.8 MMOL/L (3.6-5.0); SODIUM 135 mmol/l (132-148); TOTAL PROTEIN 6.3 G/DL (6.3-8.2)
[2016-10-18] MEDS: Potassium Chloride 20 mEq ER Tab PO SCH ×2 (09:15→17:30)
[2016-10-18] MEDS: Saccharomyces Boulardi 250 mg Cap PO SCH ×2 (09:15→17:30)
--- NOTE | 2016-10-18 09:15 | CP.PCM.PN ---
<Yousuf Scott - Last Filed: 10/18/16 12:47> Subjective - Date & Time of Evaluation Date of Evaluation: 10/18/16 Time of Evaluation: 07:45 - Subjective Subjective: PGY5 GI Fellow Progress Note Patient seen and examined bedside this morning. Daughter at bedside to assist with translation. The patient states that he is feeling well today. Admits to persistent "slimy" dark stool. Tolerating liquid diet. No abdominal pain at this time. 12 system ROS performed and negative except where stated. Objective - Vital Signs/Intake and Output Vital Signs (last 24 hours): Temp Pulse Resp BP Pulse Ox 97.4 F L 128 H 18 139/86 99 10/18/16 08:00 10/18/16 08:00 10/18/16 08:00 10/18/16 08:00 10/18/16 08:00 - Medications Medications: Current Medications Acetaminophen (Tylenol 325mg Tab) 325 mg PO Q6 PRN PRN Reason: fever Last Admin: 10/10/16 16:30 Dose: 325 mg Atorvastatin Calcium (Lipitor) 10 mg PO DAILY [facility] Last Admin: 10/17/16 09:38 Dose: Not Given Dextrose (Dextrose 50% Inj) 0 ml IV STAT PRN; Protocol PRN Reason: Hyglycemia Protocol Dextrose (Glutose 15) 0 gm PO ONCE PRN; Protocol PRN Reason: Hypoglycemia Protocol Enalapril Maleate (Vasotec) 5 mg PO DAILY [facility] Last Admin: 10/17/16 09:33 Dose: 5 mg Glucagon (Glucagen Diagnostic Kit) 0 mg IM STAT PRN; Protocol PRN Reason: Hypoglycemia Protocol Meropenem 500 mg/ Sodium (Chloride) 100 mls @ 100 mls/hr IVPB Q8 [facility] Last Admin: 10/18/16 00:19 Dose: 100 mls/hr Piperacillin Sod/Tazobactam (Sod 3.375 gm/ Sodium Chloride) 100 mls @ 100 mls/ hr IVPB Q8H [facility] Last Admin: 10/18/16 01:40 Dose: 100 mls/hr Lorazepam (Ativan) 0.5 mg IVP ONCE PRN PRN Reason: Anxiety Last Admin: 10/16/16 14:34 Dose: 0.5 mg Magnesium Chloride (Mag Delay 64mg) 1 tab PO DAILY [facility] Last Admin: 10/17/16 09:38 Dose: Not Given Metoprolol Succinate (Toprol Xl) 100 mg PO DAILY [facility] Metronidazole (Flagyl) 500 mg PO Q8 [facility] Last Admin: 10/18/16 00:20 Dose: 500 mg Multivitamins/Minerals (Therapeutic-M Tab) 1 tab PO DAILY [facility] Last Admin: 10/17/16 09:38 Dose: Not Given Ondansetron HCl (Zofran Inj) 4 mg IVP Q6 PRN PRN Reason: Nausea/Vomiting Last Admin: 10/16/16 13:00 Dose: 4 mg Pantoprazole Sodium (Protonix Ec Tab) 40 mg PO BIDAC [facility] Last Admin: 10/17/16 17:56 Dose: 40 mg Potassium Chloride (K-Dur 20 Meq Er Tab) 20 meq PO BID [facility] Last Admin: 10/17/16 17:56 Dose: 20 meq Saccharomyces Boulardii (Florastor) 250 mg PO BID [facility] Last Admin: 10/17/16 17:56 Dose: 250 mg Simethicone (Mylicon Liq) 40 mg PO QID PRN PRN Reason: Flatulence Vitamin D (Vitamin D 400 Intl Units Tab) 400 intlu PO DAILY [facility] Last Admin: 10/17/16 09:38 Dose: Not Given - Labs Labs: 10/18/16 05:00 10/18/16 05:00 PT 15.3 Seconds (9.8-13.1) H 10/17/16 06:15 INR 1.5 (0.9-1.2) H 10/17/16 06:15 APTT 35.5 Seconds (25.6-37.1) 10/17/16 06:15 - Constitutional Appears: No Acute Distress, Chronically Ill - Eye Exam Eye Exam: EOMI, PERRL - ENT Exam ENT Exam: Mucous Membranes Moist - Respiratory Exam Respiratory Exam: Clear to Ausculation Bilateral. absent: Rales, Rhonchi, Wheezes - Cardiovascular Exam Cardiovascular Exam: Irregular Rhythm, +S1, +S2 - GI/Abdominal Exam GI & Abdominal Exam: Soft, Normal Bowel Sounds. absent: Distended, Firm, Guarding, Rigid, Tenderness, Organomegaly - Extremities Exam Extremities Exam: Normal Inspection. absent: Pedal Edema - Neurological Exam Neurological Exam: Alert, Awake, Oriented x3 - Psychiatric Exam Psychiatric exam: Normal Affect, Normal Mood - Skin Skin Exam: Dry, Warm Assessment and Plan - Assessment and Plan (Free Text) Assessment: 76 yr old M with extensive cardiac history with CAD, CABG, COPD with frequent PNA, and bronchitis, with two recent episodes of UTI, admitted with sepsis secondary to E. coli bacteremia in setting of pyelonephritis now complaining with abdominal pain, distension and chronic diarrhea with oil droplets and loss of appetite. LFT normal but CT contrast concerning for intrahepatic dilatation and CBD dilatation with layering stones in gallbladder; unremarkable EUS for pancreatic head lesion. EGD did show multiple gastric and duodenal ulcers with a large duodenal bulb ulcer. Plan: -Significant PUD and esophagitis (LA class C) -Protonix 40mg PO BIDAC for 8 weeks -Repeat EGD needed to check healing in 2-3 months -Large ulceration in duodenum as well as other gastric and duodenal ulcers would make patient high risk for GI bleeding if anticoagulation started -No evidence of pancreatic head lesion or choledocolithiasis; CBD dilation noted -No further recommendations at this time. Patient to follow up as outpatient. Thank you for allowing us to participate in the care of your patient. <Maurice Madrid MD - Last Filed: 10/18/16 14:43> Objective - Vital Signs/Intake and Output Vital Signs (last 24 hours): Temp Pulse Resp BP Pulse Ox 97.7 F 141 H 18 149/98 H 98 10/18/16 12:00 10/18/16 12:00 10/18/16 12:00 10/18/16 12:00 10/18/16 12:00 - Medications Medications: Current Medications Acetaminophen (Tylenol 325mg Tab) 325 mg PO Q6 PRN PRN Reason: fever Last Admin: 10/10/16 16:30 Dose: 325 mg Atorvastatin Calcium (Lipitor) 10 mg PO DAILY [facility] Last Admin: 10/18/16 09:15 Dose: 10 mg Dextrose (Dextrose 50% Inj) 0 ml IV STAT PRN; Protocol PRN Reason: Hyglycemia Protocol Dextrose (Glutose 15) 0 gm PO ONCE PRN; Protocol PRN Reason: Hypoglycemia Protocol Enalapril Maleate (Vasotec) 5 mg PO DAILY [facility] Last Admin: 10/18/16 09:17 Dose: 5 mg Glucagon (Glucagen Diagnostic Kit) 0 mg IM STAT PRN; Protocol PRN Reason: Hypoglycemia Protocol Meropenem 500 mg/ Sodium (Chloride) 100 mls @ 100 mls/hr IVPB Q8 [facility] Last Admin: 10/18/16 09:16 Dose: 100 mls/hr Piperacillin Sod/Tazobactam (Sod 3.375 gm/ Sodium Chloride) 100 mls @ 100 mls/ hr IVPB Q8H [facility] Last Admin: 10/18/16 09:19 Dose: 100 mls/hr Lorazepam (Ativan) 0.5 mg IVP ONCE PRN PRN Reason: Anxiety Last Admin: 10/16/16 14:34 Dose: 0.5 mg Magnesium Chloride (Mag Delay 64mg) 1 tab PO DAILY [facility] Last Admin: 10/18/16 09:16 Dose: 1 tab Metoprolol Succinate (Toprol Xl) 100 mg PO DAILY [facility] Last Admin: 10/18/16 10:06 Dose: Not Given Metronidazole (Flagyl) 500 mg PO Q8 [facility] Last Admin: 10/18/16 09:15 Dose: 500 mg Multivitamins/Minerals (Therapeutic-M Tab) 1 tab PO DAILY [facility] Last Admin: 10/18/16 09:17 Dose: 1 tab Ondansetron HCl (Zofran Inj) 4 mg IVP Q6 PRN PRN Reason: Nausea/Vomiting Last Admin: 10/16/16 13:00 Dose: 4 mg Pantoprazole Sodium (Protonix Ec Tab) 40 mg PO BIDAC [facility] Last Admin: 10/18/16 09:17 Dose: 40 mg Potassium Chloride (K-Dur 20 Meq Er Tab) 20 meq PO BID [facility] Last Admin: 10/18/16 09:15 Dose: 20 meq Saccharomyces Boulardii (Florastor) 250 mg PO BID [facility] Last Admin: 10/18/16 09:15 Dose: 250 mg Simethicone (Mylicon Liq) 40 mg PO QID PRN PRN Reason: Flatulence Vitamin D (Vitamin D 400 Intl Units Tab) 400 intlu PO DAILY [facility] Last Admin: 10/18/16 09:17 Dose: 400 intlu - Labs Labs: 10/18/16 05:00 10/18/16 05:00 PT 15.3 Seconds (9.8-13.1) H 10/17/16 06:15 INR 1.5 (0.9-1.2) H 10/17/16 06:15 APTT 35.5 Seconds (25.6-37.1) 10/17/16 06:15 Attending/Attestation - Attestation I have personally seen and examined this patient.: Yes I have fully participated in the care of the patient.: Yes I have reviewed all pertinent clinical information, including history, physical exam and plan: Yes Notes (Text): 10/18/16 14:39 Patient seen and examined at bedside earlier today. and daughter in the room. This is a 76 yr old M with extensive cardiac history with CAD, CABG, COPD with frequent PNA, and bronchitis, with two recent episodes of UTI, admitted with sepsis secondary to E. coli bacteremia in setting of pyelonephritis. GI was involved for complain of abdominal pain and distension. CT contrast concerning for intrahepatic dilatation and CBD dilatation with layering stones in gallbladder; unremarkable EUS for pancreatic head lesion. EGD did show multiple gastric and duodenal ulcers with a large duodenal bulb ulcer. Continue PPI bid for 3 months. Patient high risk for bleed and perforation and hence adviced to not to anti platelet and anti coagulation. Repeat EGD in 3 months. Will follow for repeat EGD in 3 months for ulcer healing. -No further recommendations at this time. Patient to follow up as outpatient. Thank you for allowing us to participate in the care of your patient.
[2016-10-18] MEDS: SlowMag 1 TAB PO SCH (09:16)
[2016-10-18] MEDS: Cholecalciferol 400 Intl Units Tab PO SCH (09:17)
[2016-10-18] MEDS: Pantoprazole 40 mg EC Tab PO SCH ×2 (09:17→17:31)
[2016-10-18] MEDS: Multivitamin With Minerals Tab PO SCH (09:17)
[2016-10-18] MEDS: Metoprolol Succinate 100 mg XL Tab PO SCH (10:06)
[2016-10-18] MEDS ORDERED: Digoxin 500 mcg/2ml (0.5 mg/2ml) Inj IVP ONE ×3 (10:15→20:59)
--- NOTE | 2016-10-18 12:22 | CP.PCM.PN ---
Subjective - Date & Time of Evaluation Date of Evaluation: 10/18/16 Time of Evaluation: 11:00 - Subjective Subjective: Pt has large gastric ulcer feels well ++ appetite pt HR has been running high when given metoprolol has occasional pauses enalapril given for BP Digoxin for tachycardia Objective - Vital Signs/Intake and Output Vital Signs (last 24 hours): Temp Pulse Resp BP Pulse Ox 97.4 F L 128 H 18 139/86 99 10/18/16 08:00 10/18/16 08:00 10/18/16 08:00 10/18/16 08:00 10/18/16 08:00 - Medications Medications: Current Medications Acetaminophen (Tylenol 325mg Tab) 325 mg PO Q6 PRN PRN Reason: fever Last Admin: 10/10/16 16:30 Dose: 325 mg Atorvastatin Calcium (Lipitor) 10 mg PO DAILY [facility] Last Admin: 10/18/16 09:15 Dose: 10 mg Dextrose (Dextrose 50% Inj) 0 ml IV STAT PRN; Protocol PRN Reason: Hyglycemia Protocol Dextrose (Glutose 15) 0 gm PO ONCE PRN; Protocol PRN Reason: Hypoglycemia Protocol Enalapril Maleate (Vasotec) 5 mg PO DAILY [facility] Last Admin: 10/18/16 09:17 Dose: 5 mg Glucagon (Glucagen Diagnostic Kit) 0 mg IM STAT PRN; Protocol PRN Reason: Hypoglycemia Protocol Meropenem 500 mg/ Sodium (Chloride) 100 mls @ 100 mls/hr IVPB Q8 [facility] Last Admin: 10/18/16 09:16 Dose: 100 mls/hr Piperacillin Sod/Tazobactam (Sod 3.375 gm/ Sodium Chloride) 100 mls @ 100 mls/ hr IVPB Q8H [facility] Last Admin: 10/18/16 09:19 Dose: 100 mls/hr Lorazepam (Ativan) 0.5 mg IVP ONCE PRN PRN Reason: Anxiety Last Admin: 10/16/16 14:34 Dose: 0.5 mg Magnesium Chloride (Mag Delay 64mg) 1 tab PO DAILY [facility] Last Admin: 10/18/16 09:16 Dose: 1 tab Metoprolol Succinate (Toprol Xl) 100 mg PO DAILY [facility] Last Admin: 10/18/16 10:06 Dose: Not Given Metronidazole (Flagyl) 500 mg PO Q8 [facility] Last Admin: 10/18/16 09:15 Dose: 500 mg Multivitamins/Minerals (Therapeutic-M Tab) 1 tab PO DAILY [facility] Last Admin: 10/18/16 09:17 Dose: 1 tab Ondansetron HCl (Zofran Inj) 4 mg IVP Q6 PRN PRN Reason: Nausea/Vomiting Last Admin: 10/16/16 13:00 Dose: 4 mg Pantoprazole Sodium (Protonix Ec Tab) 40 mg PO BIDAC [facility] Last Admin: 10/18/16 09:17 Dose: 40 mg Potassium Chloride (K-Dur 20 Meq Er Tab) 20 meq PO BID [facility] Last Admin: 10/18/16 09:15 Dose: 20 meq Saccharomyces Boulardii (Florastor) 250 mg PO BID [facility] Last Admin: 10/18/16 09:15 Dose: 250 mg Simethicone (Mylicon Liq) 40 mg PO QID PRN PRN Reason: Flatulence Vitamin D (Vitamin D 400 Intl Units Tab) 400 intlu PO DAILY [facility] Last Admin: 10/18/16 09:17 Dose: 400 intlu - Labs Labs: 10/18/16 05:00 10/18/16 05:00 PT 15.3 Seconds (9.8-13.1) H 10/17/16 06:15 INR 1.5 (0.9-1.2) H 10/17/16 06:15 APTT 35.5 Seconds (25.6-37.1) 10/17/16 06:15
--- NOTE | 2016-10-18 19:20 | CP.PCM.PN ---
Subjective - Date & Time of Evaluation Date of Evaluation: 10/18/16 Time of Evaluation: 19:10 - Subjective Subjective: I D NOTE GI NOTES AND RESULTS REVIEWED WBCIS NOT MOVING DOWN BRISKLY IN FACT IT HAS MOVED UP A BIT TO 16.1 RENAL FUNCTION IS ESSENTIALLY WNL AWAIT F/U HAVE INCREASED DOSE OF MEROPENEM Objective - Vital Signs/Intake and Output Vital Signs (last 24 hours): Temp Pulse Resp BP Pulse Ox 97.6 F 142 H 18 131/80 97 10/18/16 16:45 10/18/16 16:45 10/18/16 16:45 10/18/16 16:45 10/18/16 16:45 Intake and Output: 10/18/16 10/19/16 18:59 06:59 Intake Total 2049 Balance 2049 - Medications Medications: Current Medications Acetaminophen (Tylenol 325mg Tab) 325 mg PO Q6 PRN PRN Reason: fever Last Admin: 10/10/16 16:30 Dose: 325 mg Atorvastatin Calcium (Lipitor) 10 mg PO DAILY [facility] Last Admin: 10/18/16 09:15 Dose: 10 mg Dextrose (Dextrose 50% Inj) 0 ml IV STAT PRN; Protocol PRN Reason: Hyglycemia Protocol Dextrose (Glutose 15) 0 gm PO ONCE PRN; Protocol PRN Reason: Hypoglycemia Protocol Enalapril Maleate (Vasotec) 5 mg PO DAILY [facility] Last Admin: 10/18/16 09:17 Dose: 5 mg Glucagon (Glucagen Diagnostic Kit) 0 mg IM STAT PRN; Protocol PRN Reason: Hypoglycemia Protocol Piperacillin Sod/Tazobactam (Sod 3.375 gm/ Sodium Chloride) 100 mls @ 100 mls/ hr IVPB Q8H [facility] Last Admin: 10/18/16 17:29 Dose: 100 mls/hr Meropenem 500 mg/ Sodium (Chloride) 100 mls @ 100 mls/hr IVPB Q12 [facility] Lorazepam (Ativan) 0.5 mg IVP ONCE PRN PRN Reason: Anxiety Last Admin: 10/16/16 14:34 Dose: 0.5 mg Magnesium Chloride (Mag Delay 64mg) 1 tab PO DAILY [facility] Last Admin: 10/18/16 09:16 Dose: 1 tab Metoprolol Succinate (Toprol Xl) 100 mg PO DAILY [facility] Last Admin: 10/18/16 10:06 Dose: Not Given Metronidazole (Flagyl) 500 mg PO Q8 [facility] Last Admin: 10/18/16 17:30 Dose: 500 mg Multivitamins/Minerals (Therapeutic-M Tab) 1 tab PO DAILY [facility] Last Admin: 10/18/16 09:17 Dose: 1 tab Ondansetron HCl (Zofran Inj) 4 mg IVP Q6 PRN PRN Reason: Nausea/Vomiting Last Admin: 10/16/16 13:00 Dose: 4 mg Pantoprazole Sodium (Protonix Ec Tab) 40 mg PO BIDAC [facility] Last Admin: 10/18/16 17:31 Dose: 40 mg Potassium Chloride (K-Dur 20 Meq Er Tab) 20 meq PO BID [facility] Last Admin: 10/18/16 17:30 Dose: 20 meq Saccharomyces Boulardii (Florastor) 250 mg PO BID [facility] Last Admin: 10/18/16 17:30 Dose: 250 mg Simethicone (Mylicon Liq) 40 mg PO QID PRN PRN Reason: Flatulence Vitamin D (Vitamin D 400 Intl Units Tab) 400 intlu PO DAILY [facility] Last Admin: 10/18/16 09:17 Dose: 400 intlu - Labs Labs: 10/18/16 05:00 10/18/16 05:00 PT 15.3 Seconds (9.8-13.1) H 10/17/16 06:15 INR 1.5 (0.9-1.2) H 10/17/16 06:15 APTT 35.5 Seconds (25.6-37.1) 10/17/16 06:15
[2016-10-18] MEDS ORDERED: Metoprolol Succinate 100 mg XL Tab PO ONE (20:30)
--- NOTE | 2016-10-18 23:15 | PCM.RRTMUL ---
<Pardeep Jackson - Last Filed: 10/18/16 23:20> PROCESS COORDINATOR Nurse Assessment - Situation PROCESS COORDINATOR Responder Arrival Time:: 22:42 Location:: 4th floor Room Number:: [id number] PROCESS COORDINATOR Reason for Call: Tachycardia PROCESS COORDINATOR Called By: RN - IV IV Inserted during PROCESS COORDINATOR?: No - Respiratory Oxygen Delivery Method:: Nasal Cannula Received Nebulizer Treatments:: No Was the Patient Ventilated with Bag/Mask 100% O2?: No Secretions Suctioned?: No Was the Patient Intubated?: No Was the Patient Placed on a Ventilator?: No - Medication Medications Administered During PROCESS COORDINATOR :: Lopressor 5mg IV - Diagnostic Test Ordered EKG:: Yes Chest X-Ray:: No CT Scan:: No - Stat Labs Ordered PROCESS COORDINATOR Stat Labs Ordered:: BMP PROCESS COORDINATOR Other Labs Ordered:: magnesium CPR started during PROCESS COORDINATOR?: No - Vital Signs Blood Pressure:: 120/78 Pulse Rate:: 141 Respiratory Rate:: 18 - [place] Coma Scale Coma Scale Eye Opening:: Spontaneous Coma Scale Motor:: Obeys Commands Movement Coma Scale Verbal:: Oriented Coma Scale Total:: 15 - Sepsis Screen Part 1 Sepsis Screen Part 1: Temperature over 100.6F - Sepsis Screen Part 2 Sepsis Screen Part 2: WBC over 12,000 - Time PROCESS COORDINATOR Ended Time PROCESS COORDINATOR Ended:: 18:10 - Vital Signs at end of PROCESS COORDINATOR Blood Pressure:: 107/65 Pulse Rate:: 95 Respiratory Rate:: 14 O2 Sat by Pulse Oximetry:: 98 - Recommendations 5) PROCESS COORDINATOR Level of Care Recommendations: Remain in current setting 6) Notifications: Attending Physician, Consultations I.Reason for PROCESS COORDINATOR - A) Acute Change in Patient: (Select all that apply): Uncontrolled Bleeding, Hemoptysis, Hematemesis, Melena Subjective: PROCESS COORDINATOR was called on 76 y/o M by RN b/c of HR of 141. upon arrival pt was awake, alert and oriented, verbally responsive and following commends. pt denied any chest pain, palpitations or any discomfort, initial HR 140, BP 135/66. EKG showed A-flutter. pt was started on Cardizem 10 IVP once and drip. after initial Cardizem 10mg, pt's HR 71 and BP 128/52. Pt is stable and PROCESS COORDINATOR ended after 10 mins. Case discussed with Dr. Bundy PGY3 and Wilmer Garcia --- Pardeep Jackson, PGY-1 - A) Initial Vital Signs: Pulse Rate: 140 - B) Neurological Status (Select all that apply): Alert, Responsive, Oriented, Verbal, Follows Commands - C) Respiratory Oxygen Delivery Method: Room Air - Constitutional Appears: Well, Non-toxic, No Acute Distress - Respiratory Exam Respiratory Exam: Clear to Ausculation Bilateral. absent: Accessory Muscle Use , Chest Wall Tenderness - Cardiovascular Exam Cardiovascular Exam: Irregular Rhythm - GI/Abdominal Exam GI & Abdominal Exam: Soft, Normal Bowel Sounds - Neurological Exam Neurological Exam: Alert, Awake, Oriented x3 - Extremities Exam Extremities Exam: absent: Calf Tenderness Plan - A. End of PROCESS COORDINATOR Vital Signs: Blood Pressure: 128/52 Pulse Rate: 71 <Wilmer Beal - Last Filed: 10/20/16 09:49> Attending/Attestation - Attestation I have personally seen and examined this patient.: No I have fully participated in the care of the patient.: No I have reviewed all pertinent clinical information, including history, physical exam and plan: No Notes (Text): 10/20/16 09:47 i saw and examined this patient shoulder to shoulder with Dr Jackson. The assessment and plan represent my direct input. A&P # A Flutter with rapid response - Lopressor 5m IV given.Wilmer Beal MD
[2016-10-19] MEDS: Piperacillin/Tazobact 3.375 GM in Sodium Chloride 0.9% 100 ML IVPB SCH ×3 (02:00→17:15)
--- NOTE | 2016-10-19 09:08 | CARD ---
APPROVED REPORT EKG Measurement Heart [id number] <Conclusion> Atrial flutter with variable AV block Right bundle branch block Abnormal ECG
[2016-10-19] MEDS: Saccharomyces Boulardi 250 mg Cap PO SCH ×2 (09:19→17:11)
[2016-10-19] MEDS: Pantoprazole 40 mg EC Tab PO SCH ×2 (09:19→17:12)
[2016-10-19] MEDS: Multivitamin With Minerals Tab PO SCH (09:20)
[2016-10-19] MEDS: Meropenem 500 MG in Sodium Chloride 0.9% 100 ML IVPB SCH ×2 (09:20→20:58)
[2016-10-19] MEDS: SlowMag 1 TAB PO SCH (09:20)
[2016-10-19] MEDS: Cholecalciferol 400 Intl Units Tab PO SCH (09:20)
[2016-10-19] MEDS: Potassium Chloride 20 mEq ER Tab PO SCH ×2 (09:20→17:11)
[2016-10-19] MEDS: Metoprolol Succinate 100 mg XL Tab PO SCH (09:22)
--- NOTE | 2016-10-19 11:28 | CP.PCM.PN ---
Subjective - Date & Time of Evaluation Date of Evaluation: 10/19/16 Time of Evaluation: 10:00 - Subjective Subjective: as noted pt had [employer] 2* to tachycardia pt was never in any distress placed on Cardizem drip Pt's HR 70 - 80 will decrease Cardizem and ? possibly d/c Objective - Vital Signs/Intake and Output Vital Signs (last 24 hours): Temp Pulse Resp BP Pulse Ox 97.9 F 137 H 18 143/72 100 10/19/16 05:22 10/19/16 09:22 10/19/16 05:22 10/19/16 09:22 10/19/16 05:22 - Medications Medications: Current Medications Acetaminophen (Tylenol 325mg Tab) 325 mg PO Q6 PRN PRN Reason: fever Last Admin: 10/10/16 16:30 Dose: 325 mg Atorvastatin Calcium (Lipitor) 10 mg PO DAILY [facility] Last Admin: 10/19/16 09:20 Dose: 10 mg Dextrose (Dextrose 50% Inj) 0 ml IV STAT PRN; Protocol PRN Reason: Hyglycemia Protocol Dextrose (Glutose 15) 0 gm PO ONCE PRN; Protocol PRN Reason: Hypoglycemia Protocol Enalapril Maleate (Vasotec) 5 mg PO DAILY [facility] Last Admin: 10/19/16 09:21 Dose: 5 mg Glucagon (Glucagen Diagnostic Kit) 0 mg IM STAT PRN; Protocol PRN Reason: Hypoglycemia Protocol Piperacillin Sod/Tazobactam (Sod 3.375 gm/ Sodium Chloride) 100 mls @ 100 mls/ hr IVPB Q8H [facility] Last Admin: 10/19/16 09:21 Dose: 100 mls/hr Meropenem 500 mg/ Sodium (Chloride) 100 mls @ 100 mls/hr IVPB Q12 [facility] Last Admin: 10/19/16 09:20 Dose: 100 mls/hr Diltiazem HCl 125 mg/ Sodium (Chloride) 125 mls @ 7.5 mls/hr IV .[id number] ONE; 7.5 MG/HR PRN Reason: Protocol Stop: 10/19/16 22:48 Last Admin: 10/19/16 06:25 Dose: 7.5 mg/hr, 7.5 mls/hr Magnesium Chloride (Mag Delay 64mg) 1 tab PO DAILY [facility] Last Admin: 10/19/16 09:20 Dose: 1 tab Metoprolol Succinate (Toprol Xl) 100 mg PO DAILY [facility] Last Admin: 10/19/16 09:22 Dose: 100 mg Metronidazole (Flagyl) 500 mg PO Q8 [facility] Last Admin: 10/19/16 09:19 Dose: 500 mg Multivitamins/Minerals (Therapeutic-M Tab) 1 tab PO DAILY [facility] Last Admin: 10/19/16 09:20 Dose: 1 tab Ondansetron HCl (Zofran Inj) 4 mg IVP Q6 PRN PRN Reason: Nausea/Vomiting Last Admin: 10/16/16 13:00 Dose: 4 mg Pantoprazole Sodium (Protonix Ec Tab) 40 mg PO BIDAC [facility] Last Admin: 10/19/16 09:19 Dose: 40 mg Potassium Chloride (K-Dur 20 Meq Er Tab) 20 meq PO BID [facility] Last Admin: 10/19/16 09:20 Dose: 20 meq Saccharomyces Boulardii (Florastor) 250 mg PO BID [facility] Last Admin: 10/19/16 09:19 Dose: 250 mg Simethicone (Mylicon Liq) 40 mg PO QID PRN PRN Reason: Flatulence Vitamin D (Vitamin D 400 Intl Units Tab) 400 intlu PO DAILY [facility] Last Admin: 10/19/16 09:20 Dose: 400 intlu - Labs Labs: 10/18/16 05:00 10/18/16 05:00 PT 15.3 Seconds (9.8-13.1) H 10/17/16 06:15 INR 1.5 (0.9-1.2) H 10/17/16 06:15 APTT 35.5 Seconds (25.6-37.1) 10/17/16 06:15
[2016-10-20] MEDS: Piperacillin/Tazobact 3.375 GM in Sodium Chloride 0.9% 100 ML IVPB SCH ×3 (00:30→17:32)
[2016-10-20] MEDS: Metoprolol Succinate 100 mg XL Tab PO SCH ×2 (06:42→09:42)
[2016-10-20] MEDS: Pantoprazole 40 mg EC Tab PO SCH ×2 (07:40→17:01)
[2016-10-20 07:48] LABS: HEMATOCRIT 34.3 % (35.0-51.0); MEAN CELL VOLUME 85.5 fl (80.0-94.0); MEAN CORPUSCULAR HEMOGLOBIN 28.4 pg (27.0-31.0); MEAN CORPUSCULAR HGB CONC 33.2 g/dL (33.0-37.0); RED CELL DISTRIBUTION WIDTH 16.1 % (11.5-14.5); WHITE BLOOD COUNT 13.8 K/uL (4.8-10.8)
[2016-10-20 09:12] LABS: BLOOD UREA NITROGEN 8 mg/dl (9-20); CALCIUM 8.8 mg/dL (8.4-10.2); CARBON DIOXIDE 23 mmol/L (22-30); CHLORIDE 104 mmol/L (98-107); GFR AFRICAN-AMERICAN > 60; GLUCOSE,RANDOM 126 mg/dL (75-110); POTASSIUM 4.2 MMOL/L (3.6-5.0); SODIUM 137 mmol/l (132-148)
[2016-10-20] MEDS: SlowMag 1 TAB PO SCH (09:40)
[2016-10-20] MEDS: Multivitamin With Minerals Tab PO SCH (09:40)
[2016-10-20] MEDS: Cholecalciferol 400 Intl Units Tab PO SCH (09:40)
[2016-10-20] MEDS: Saccharomyces Boulardi 250 mg Cap PO SCH ×2 (09:40→17:32)
[2016-10-20] MEDS: Potassium Chloride 20 mEq ER Tab PO SCH ×2 (09:41→17:33)
[2016-10-20] MEDS: Meropenem 500 MG in Sodium Chloride 0.9% 100 ML IVPB SCH ×2 (09:43→21:13)
--- NOTE | 2016-10-20 10:00 | CP.PCM.PN ---
Subjective - Date & Time of Evaluation Date of Evaluation: 10/20/16 Time of Evaluation: 09:00 - Subjective Subjective: Pt has no significant c/o HR remains elevated was given his metoprolol earlier Objective - Vital Signs/Intake and Output Vital Signs (last 24 hours): Temp Pulse Resp BP Pulse Ox 97.5 F L 135 H 18 117/80 97 10/20/16 08:12 10/20/16 09:42 10/20/16 08:12 10/20/16 09:42 10/20/16 08:12 Intake and Output: 10/20/16 10/20/16 06:59 18:59 Intake Total 1244 Balance 1244 - Medications Medications: Current Medications Acetaminophen (Tylenol 325mg Tab) 325 mg PO Q6 PRN PRN Reason: fever Last Admin: 10/10/16 16:30 Dose: 325 mg Atorvastatin Calcium (Lipitor) 10 mg PO DAILY [facility] Last Admin: 10/20/16 09:44 Dose: 10 mg Dextrose (Dextrose 50% Inj) 0 ml IV STAT PRN; Protocol PRN Reason: Hyglycemia Protocol Dextrose (Glutose 15) 0 gm PO ONCE PRN; Protocol PRN Reason: Hypoglycemia Protocol Enalapril Maleate (Vasotec) 5 mg PO DAILY [facility] Last Admin: 10/20/16 09:41 Dose: 5 mg Glucagon (Glucagen Diagnostic Kit) 0 mg IM STAT PRN; Protocol PRN Reason: Hypoglycemia Protocol Piperacillin Sod/Tazobactam (Sod 3.375 gm/ Sodium Chloride) 100 mls @ 100 mls/ hr IVPB Q8H [facility] Last Admin: 10/20/16 09:44 Dose: 100 mls/hr Meropenem 500 mg/ Sodium (Chloride) 100 mls @ 100 mls/hr IVPB Q12 [facility] Last Admin: 10/20/16 09:43 Dose: 100 mls/hr Magnesium Chloride (Mag Delay 64mg) 1 tab PO DAILY [facility] Last Admin: 10/20/16 09:40 Dose: 1 tab Metoprolol Succinate (Toprol Xl) 100 mg PO DAILY [facility] Last Admin: 10/20/16 09:42 Dose: 100 mg Metronidazole (Flagyl) 500 mg PO Q8 [facility] Last Admin: 10/20/16 09:41 Dose: 500 mg Multivitamins/Minerals (Therapeutic-M Tab) 1 tab PO DAILY [facility] Last Admin: 10/20/16 09:40 Dose: 1 tab Ondansetron HCl (Zofran Inj) 4 mg IVP Q6 PRN PRN Reason: Nausea/Vomiting Last Admin: 10/16/16 13:00 Dose: 4 mg Pantoprazole Sodium (Protonix Ec Tab) 40 mg PO BIDAC [facility] Last Admin: 10/20/16 07:40 Dose: 40 mg Potassium Chloride (K-Dur 20 Meq Er Tab) 20 meq PO BID [facility] Last Admin: 10/20/16 09:41 Dose: 20 meq Saccharomyces Boulardii (Florastor) 250 mg PO BID [facility] Last Admin: 10/20/16 09:40 Dose: 250 mg Simethicone (Mylicon Liq) 40 mg PO QID PRN PRN Reason: Flatulence Vitamin D (Vitamin D 400 Intl Units Tab) 400 intlu PO DAILY [facility] Last Admin: 10/20/16 09:40 Dose: 400 intlu - Labs Labs: 10/20/16 06:00 10/20/16 06:00 PT 15.3 Seconds (9.8-13.1) H 10/17/16 06:15 INR 1.5 (0.9-1.2) H 10/17/16 06:15 APTT 35.5 Seconds (25.6-37.1) 10/17/16 06:15
[2016-10-21] MEDS: Piperacillin/Tazobact 3.375 GM in Sodium Chloride 0.9% 100 ML IVPB SCH ×3 (01:19→17:12)
[2016-10-21] MEDS: Metoprolol Succinate 100 mg XL Tab PO SCH ×2 (06:20→08:49)
[2016-10-21] MEDS: Saccharomyces Boulardi 250 mg Cap PO SCH ×2 (08:48→17:13)
[2016-10-21] MEDS: Cholecalciferol 400 Intl Units Tab PO SCH (08:48)
[2016-10-21] MEDS: Multivitamin With Minerals Tab PO SCH (08:48)
[2016-10-21] MEDS: SlowMag 1 TAB PO SCH (08:49)
[2016-10-21] MEDS: Potassium Chloride 20 mEq ER Tab PO SCH ×2 (08:49→17:12)
[2016-10-21] MEDS: Pantoprazole 40 mg EC Tab PO SCH ×2 (08:49→17:12)
[2016-10-21] MEDS: Meropenem 500 MG in Sodium Chloride 0.9% 100 ML IVPB SCH ×2 (08:51→21:16)
--- NOTE | 2016-10-21 09:51 | CP.PCM.PN ---
Subjective - Date & Time of Evaluation Date of Evaluation: 10/21/16 Time of Evaluation: 09:00 - Subjective Subjective: No abdominal pains appetite is good Hr still runs high at times controlled with metoprolol Objective - Vital Signs/Intake and Output Vital Signs (last 24 hours): Temp Pulse Resp BP Pulse Ox 97.9 F 129 H 18 129/83 100 10/21/16 08:14 10/21/16 08:14 10/21/16 08:14 10/21/16 08:14 10/21/16 08:14 - Medications Medications: Current Medications Acetaminophen (Tylenol 325mg Tab) 325 mg PO Q6 PRN PRN Reason: fever Last Admin: 10/10/16 16:30 Dose: 325 mg Atorvastatin Calcium (Lipitor) 10 mg PO DAILY [facility] Last Admin: 10/21/16 08:50 Dose: 10 mg Dextrose (Dextrose 50% Inj) 0 ml IV STAT PRN; Protocol PRN Reason: Hyglycemia Protocol Dextrose (Glutose 15) 0 gm PO ONCE PRN; Protocol PRN Reason: Hypoglycemia Protocol Enalapril Maleate (Vasotec) 5 mg PO DAILY [facility] Last Admin: 10/21/16 08:50 Dose: 5 mg Glucagon (Glucagen Diagnostic Kit) 0 mg IM STAT PRN; Protocol PRN Reason: Hypoglycemia Protocol Piperacillin Sod/Tazobactam (Sod 3.375 gm/ Sodium Chloride) 100 mls @ 100 mls/ hr IVPB Q8H [facility] Last Admin: 10/21/16 08:50 Dose: 100 mls/hr Meropenem 500 mg/ Sodium (Chloride) 100 mls @ 100 mls/hr IVPB Q12 [facility] Last Admin: 10/21/16 08:51 Dose: 100 mls/hr Magnesium Chloride (Mag Delay 64mg) 1 tab PO DAILY [facility] Last Admin: 10/21/16 08:49 Dose: 1 tab Metoprolol Succinate (Toprol Xl) 100 mg PO DAILY [facility] Last Admin: 10/21/16 08:49 Dose: Not Given Metronidazole (Flagyl) 500 mg PO Q8 [facility] Last Admin: 10/21/16 08:48 Dose: 500 mg Multivitamins/Minerals (Therapeutic-M Tab) 1 tab PO DAILY [facility] Last Admin: 10/21/16 08:48 Dose: 1 tab Ondansetron HCl (Zofran Inj) 4 mg IVP Q6 PRN PRN Reason: Nausea/Vomiting Last Admin: 10/16/16 13:00 Dose: 4 mg Pantoprazole Sodium (Protonix Ec Tab) 40 mg PO BIDAC [facility] Last Admin: 10/21/16 08:49 Dose: 40 mg Potassium Chloride (K-Dur 20 Meq Er Tab) 20 meq PO BID [facility] Last Admin: 10/21/16 08:49 Dose: 20 meq Saccharomyces Boulardii (Florastor) 250 mg PO BID [facility] Last Admin: 10/21/16 08:48 Dose: 250 mg Simethicone (Mylicon Liq) 40 mg PO QID PRN PRN Reason: Flatulence Vitamin D (Vitamin D 400 Intl Units Tab) 400 intlu PO DAILY [facility] Last Admin: 10/21/16 08:48 Dose: 400 intlu - Labs Labs: 10/20/16 06:00 10/20/16 06:00 PT 15.3 Seconds (9.8-13.1) H 10/17/16 06:15 INR 1.5 (0.9-1.2) H 10/17/16 06:15 APTT 35.5 Seconds (25.6-37.1) 10/17/16 06:15
--- NOTE | 2016-10-21 18:00 | CP.PCM.PN ---
Subjective - Date & Time of Evaluation Date of Evaluation: 10/21/16 Time of Evaluation: 17:50 - Subjective Subjective: I D NOTE WBC IS DECREASING BUT STILL NOT WNL HAS SOME PAIN ON DEEP PRESSURE ACCORDING TO DAUGHTER STILL HAS LOOSE BM WILL ASK TO RE EVALUATE F/U CULTURES ORDERED Objective - Vital Signs/Intake and Output Vital Signs (last 24 hours): Temp Pulse Resp BP Pulse Ox 97.3 F L 62 16 151/76 H 100 10/21/16 16:08 10/21/16 16:08 10/21/16 16:08 10/21/16 16:08 10/21/16 16:08 - Medications Medications: Current Medications Acetaminophen (Tylenol 325mg Tab) 325 mg PO Q6 PRN PRN Reason: fever Last Admin: 10/10/16 16:30 Dose: 325 mg Atorvastatin Calcium (Lipitor) 10 mg PO DAILY [facility] Last Admin: 10/21/16 08:50 Dose: 10 mg Dextrose (Dextrose 50% Inj) 0 ml IV STAT PRN; Protocol PRN Reason: Hyglycemia Protocol Dextrose (Glutose 15) 0 gm PO ONCE PRN; Protocol PRN Reason: Hypoglycemia Protocol Enalapril Maleate (Vasotec) 5 mg PO DAILY [facility] Last Admin: 10/21/16 08:50 Dose: 5 mg Glucagon (Glucagen Diagnostic Kit) 0 mg IM STAT PRN; Protocol PRN Reason: Hypoglycemia Protocol Piperacillin Sod/Tazobactam (Sod 3.375 gm/ Sodium Chloride) 100 mls @ 100 mls/ hr IVPB Q8H [facility] Last Admin: 10/21/16 17:12 Dose: 100 mls/hr Meropenem 500 mg/ Sodium (Chloride) 100 mls @ 100 mls/hr IVPB Q12 [facility] Last Admin: 10/21/16 08:51 Dose: 100 mls/hr Magnesium Chloride (Mag Delay 64mg) 1 tab PO DAILY [facility] Last Admin: 10/21/16 08:49 Dose: 1 tab Metoprolol Succinate (Toprol Xl) 100 mg PO DAILY [facility] Last Admin: 10/21/16 08:49 Dose: Not Given Metronidazole (Flagyl) 500 mg PO Q8 [facility] Last Admin: 10/21/16 17:13 Dose: 500 mg Multivitamins/Minerals (Therapeutic-M Tab) 1 tab PO DAILY [facility] Last Admin: 10/21/16 08:48 Dose: 1 tab Ondansetron HCl (Zofran Inj) 4 mg IVP Q6 PRN PRN Reason: Nausea/Vomiting Last Admin: 10/16/16 13:00 Dose: 4 mg Pantoprazole Sodium (Protonix Ec Tab) 40 mg PO BIDAC [facility] Last Admin: 10/21/16 17:12 Dose: 40 mg Potassium Chloride (K-Dur 20 Meq Er Tab) 20 meq PO BID [facility] Last Admin: 10/21/16 17:12 Dose: 20 meq Saccharomyces Boulardii (Florastor) 250 mg PO BID [facility] Last Admin: 10/21/16 17:13 Dose: 250 mg Simethicone (Mylicon Liq) 40 mg PO QID PRN PRN Reason: Flatulence Vitamin D (Vitamin D 400 Intl Units Tab) 400 intlu PO DAILY [facility] Last Admin: 10/21/16 08:48 Dose: 400 intlu - Labs Labs: 10/20/16 06:00 10/20/16 06:00 PT 15.3 Seconds (9.8-13.1) H 10/17/16 06:15 INR 1.5 (0.9-1.2) H 10/17/16 06:15 APTT 35.5 Seconds (25.6-37.1) 10/17/16 06:15
[2016-10-22] MEDS: Piperacillin/Tazobact 3.375 GM in Sodium Chloride 0.9% 100 ML IVPB SCH ×3 (00:45→17:24)
[2016-10-22] MEDS: Metoprolol Succinate 100 mg XL Tab PO SCH (05:35)
[2016-10-22 06:16] LABS: BASO # 0.1 K/uL (0.0-0.2); BASO % 0.9 % (0.0-2.0); EOS # 0.3 K/uL (0.0-0.7); EOS % 2.2 % (0.0-4.0); HEMATOCRIT 33.4 % (35.0-51.0); LYMPH # 2.3 K/uL (1.0-4.3); MEAN CELL VOLUME 85.5 fl (80.0-94.0); MEAN CORPUSCULAR HEMOGLOBIN 28.1 pg (27.0-31.0); MEAN CORPUSCULAR HGB CONC 32.9 g/dL (33.0-37.0); MEAN PLATELET VOLUME 7.2 fl (7.2-11.7); MONO # 0.9 K/uL (0.0-0.8); MONO % 7.4 % (0.0-10.0); NEUT # 8.4 K/uL (1.8-7.0); NEUT % 70.5 % (50.0-75.0); RED CELL DISTRIBUTION WIDTH 15.9 % (11.5-14.5); WHITE BLOOD COUNT 11.9 K/uL (4.8-10.8)
--- NOTE | 2016-10-22 08:42 | CP.PCM.PN ---
Subjective - Date & Time of Evaluation Date of Evaluation: 10/22/16 Time of Evaluation: 08:15 - Subjective Subjective: Has few GI symptoms No nausea , no chills or fever Says his appetite is "okay " Abd soft, no tenderness Telemetry shows A Flutter/ fib at rates of upto 140 BPM (on Metoprolol suc 100 Mg/day) BP 136/70 mm Hg No signs of CHF Labs show resolving leucocytosis/ stable Hb and PLTLT count BUN/Creatinin stable/normal Electrolytes normal Endoscopy findings noted ?? need for cystoscopy. Will increase beta blockade Objective - Vital Signs/Intake and Output Vital Signs (last 24 hours): Temp Pulse Resp BP Pulse Ox 97.8 F 112 H 18 145/83 98 10/22/16 08:10 10/22/16 08:10 10/22/16 08:10 10/22/16 08:10 10/22/16 08:10 Intake and Output: 10/22/16 10/22/16 06:59 18:59 Output Total 200 Balance -200 - Medications Medications: Current Medications Acetaminophen (Tylenol 325mg Tab) 325 mg PO Q6 PRN PRN Reason: fever Last Admin: 10/10/16 16:30 Dose: 325 mg Atorvastatin Calcium (Lipitor) 10 mg PO DAILY [facility] Last Admin: 10/21/16 08:50 Dose: 10 mg Dextrose (Dextrose 50% Inj) 0 ml IV STAT PRN; Protocol PRN Reason: Hyglycemia Protocol Dextrose (Glutose 15) 0 gm PO ONCE PRN; Protocol PRN Reason: Hypoglycemia Protocol Enalapril Maleate (Vasotec) 5 mg PO DAILY [facility] Last Admin: 10/21/16 08:50 Dose: 5 mg Glucagon (Glucagen Diagnostic Kit) 0 mg IM STAT PRN; Protocol PRN Reason: Hypoglycemia Protocol Piperacillin Sod/Tazobactam (Sod 3.375 gm/ Sodium Chloride) 100 mls @ 100 mls/ hr IVPB Q8H [facility] Last Admin: 10/22/16 00:45 Dose: 100 mls/hr Meropenem 500 mg/ Sodium (Chloride) 100 mls @ 100 mls/hr IVPB Q12 [facility] Last Admin: 10/21/16 21:16 Dose: 100 mls/hr Metoprolol Tartrate (Lopressor) 100 mg PO Q12 [facility] Metronidazole (Flagyl) 500 mg PO Q8 [facility] Last Admin: 10/22/16 00:46 Dose: 500 mg Ondansetron HCl (Zofran Inj) 4 mg IVP Q6 PRN PRN Reason: Nausea/Vomiting Last Admin: 10/16/16 13:00 Dose: 4 mg Pantoprazole Sodium (Protonix Ec Tab) 40 mg PO BIDAC [facility] Last Admin: 10/21/16 17:12 Dose: 40 mg Potassium Chloride (K-Dur 20 Meq Er Tab) 20 meq PO BID [facility] Last Admin: 10/21/16 17:12 Dose: 20 meq Saccharomyces Boulardii (Florastor) 250 mg PO BID [facility] Last Admin: 10/21/16 17:13 Dose: 250 mg Vitamin D (Vitamin D 400 Intl Units Tab) 400 intlu PO DAILY [facility] Last Admin: 10/21/16 08:48 Dose: 400 intlu - Labs Labs: 10/22/16 05:50 10/20/16 06:00 PT 15.3 Seconds (9.8-13.1) H 10/17/16 06:15 INR 1.5 (0.9-1.2) H 10/17/16 06:15 APTT 35.5 Seconds (25.6-37.1) 10/17/16 06:15
[2016-10-22] MEDS: Pantoprazole 40 mg EC Tab PO SCH ×2 (09:28→17:23)
[2016-10-22] MEDS: Potassium Chloride 20 mEq ER Tab PO SCH ×2 (09:28→17:22)
[2016-10-22] MEDS: Saccharomyces Boulardi 250 mg Cap PO SCH ×2 (09:28→17:22)
[2016-10-22] MEDS: Cholecalciferol 400 Intl Units Tab PO SCH (09:29)
[2016-10-22] MEDS: Meropenem 500 MG in Sodium Chloride 0.9% 100 ML IVPB SCH (09:32)
[2016-10-22] MEDS: Meropenem 1 GM in Sodium Chloride 0.9% 100 ML IVPB SCH (21:15)
[2016-10-23] MEDS: Piperacillin/Tazobact 3.375 GM in Sodium Chloride 0.9% 100 ML IVPB SCH ×3 (00:37→17:52)
[2016-10-23 06:39] LABS: ALB/GLOB RATIO 0.8 (1.0-2.1); ALKALINE PHOSPHATASE 68 U/L (38-126); ALT/SGPT 17 U/L (21-72); AST/SGOT 22 U/L (17-59); BILIRUBIN,TOTAL 0.7 mg/dl (0.2-1.3); BLOOD UREA NITROGEN 11 mg/dl (9-20); CALCIUM 8.9 mg/dL (8.4-10.2); CARBON DIOXIDE 22 mmol/L (22-30); CHLORIDE 104 mmol/L (98-107); GFR AFRICAN-AMERICAN > 60; GLUCOSE,RANDOM 113 mg/dL (75-110); POTASSIUM 4.5 MMOL/L (3.6-5.0); SODIUM 134 mmol/l (132-148)
--- NOTE | 2016-10-23 08:17 | CP.PCM.PN ---
Subjective - Date & Time of Evaluation Date of Evaluation: 10/23/16 Time of Evaluation: 07:50 - Subjective Subjective: Slept well, has reverted to sinus rhythm HR 68 BPM, reg BP 136/70 mm Hg No signs of CHF Abd soft, no tenderness Today's labs noted (BUN/Cret normal) Blood and urine cultures :neg Spoke with Dr. Levin Pt stable for Cysto (scheduled for 4PM) Pt and daughter aware and agree to have it done Objective - Vital Signs/Intake and Output Vital Signs (last 24 hours): Temp Pulse Resp BP Pulse Ox 98.9 F 66 18 144/70 100 10/23/16 05:13 10/23/16 05:13 10/23/16 05:13 10/23/16 05:13 10/23/16 05:13 Intake and Output: 10/23/16 10/23/16 06:59 18:59 Intake Total 300 Output Total 500 Balance -200 - Medications Medications: Current Medications Acetaminophen (Tylenol 325mg Tab) 325 mg PO Q6 PRN PRN Reason: fever Last Admin: 10/10/16 16:30 Dose: 325 mg Atorvastatin Calcium (Lipitor) 10 mg PO DAILY [facility] Last Admin: 10/22/16 09:29 Dose: 10 mg Dextrose (Dextrose 50% Inj) 0 ml IV STAT PRN; Protocol PRN Reason: Hyglycemia Protocol Dextrose (Glutose 15) 0 gm PO ONCE PRN; Protocol PRN Reason: Hypoglycemia Protocol Enalapril Maleate (Vasotec) 5 mg PO DAILY [facility] Last Admin: 10/22/16 09:30 Dose: 5 mg Glucagon (Glucagen Diagnostic Kit) 0 mg IM STAT PRN; Protocol PRN Reason: Hypoglycemia Protocol Piperacillin Sod/Tazobactam (Sod 3.375 gm/ Sodium Chloride) 100 mls @ 100 mls/ hr IVPB Q8H [facility] Last Admin: 10/23/16 00:37 Dose: 100 mls/hr Meropenem 1 gm/ Sodium (Chloride) 100 mls @ 100 mls/hr IVPB Q12 [facility] Last Admin: 10/22/16 21:15 Dose: 100 mls/hr Metoprolol Tartrate (Lopressor) 100 mg PO Q12 [facility] Last Admin: 10/22/16 21:00 Dose: Not Given Metronidazole (Flagyl) 500 mg PO Q8 [facility] Last Admin: 10/23/16 01:35 Dose: 500 mg Ondansetron HCl (Zofran Inj) 4 mg IVP Q6 PRN PRN Reason: Nausea/Vomiting Last Admin: 10/16/16 13:00 Dose: 4 mg Pantoprazole Sodium (Protonix Ec Tab) 40 mg PO BIDAC [facility] Last Admin: 10/22/16 17:23 Dose: 40 mg Potassium Chloride (K-Dur 20 Meq Er Tab) 20 meq PO BID [facility] Last Admin: 10/22/16 17:22 Dose: 20 meq Saccharomyces Boulardii (Florastor) 250 mg PO BID [facility] Last Admin: 10/22/16 17:22 Dose: 250 mg Vitamin D (Vitamin D 400 Intl Units Tab) 400 intlu PO DAILY [facility] Last Admin: 10/22/16 09:29 Dose: 400 intlu - Labs Labs: 10/22/16 05:50 10/23/16 06:05 PT 15.3 Seconds (9.8-13.1) H 10/17/16 06:15 INR 1.5 (0.9-1.2) H 10/17/16 06:15 APTT 35.5 Seconds (25.6-37.1) 10/17/16 06:15
[2016-10-23] MEDS: Meropenem 1 GM in Sodium Chloride 0.9% 100 ML IVPB SCH ×2 (10:46→21:58)
[2016-10-23] MEDS: Cholecalciferol 400 Intl Units Tab PO SCH (10:48)
[2016-10-23] MEDS: Saccharomyces Boulardi 250 mg Cap PO SCH ×2 (10:48→17:35)
[2016-10-23] MEDS: Pantoprazole 40 mg EC Tab PO SCH ×2 (10:49→17:36)
[2016-10-23] MEDS: Potassium Chloride 20 mEq ER Tab PO SCH ×2 (10:49→17:35)
[2016-10-23] MEDS ORDERED: cefTRIAXone (Rocephin) 1 gm Inj ONE (18:10)
[2016-10-23] MEDS ORDERED: Iohexol 240 200 ML IJ ONE (18:11)
[2016-10-23] MEDS ORDERED: Lactated Ringer's 1,000 ML IV ONE (18:30)
[2016-10-23] MEDS ORDERED: Propofol 10 mg/ml Inj (20 ML) ONE (18:32)
[2016-10-23] MEDS ORDERED: ePHEDrine 50 mg/ml Inj ONE (18:49)
[2016-10-23] MEDS ORDERED: Labetalol 5mg/ml (4ml) IV ONE ×2 (20:45→21:10)
[2016-10-23] MEDS ORDERED: Labetalol 5mg/ml (4ml) ONE (20:58)
[2016-10-23] MEDS ORDERED: Labetalol 5 mg/ml Inj 20ML IVP STA (21:19)
--- NOTE | 2016-10-23 21:52 | CP.PCM.PN ---
Subjective - Date & Time of Evaluation Date of Evaluation: 10/23/16 Time of Evaluation: 21:49 - Subjective Subjective: 1 D NOTE WBC:11.9 TAKEN FOR CYSTO BY DISCUSSED c DAUGHTER HE HAD STENT PLACEMENT ,WILL CONTINUE BOTH ANTIBIOTICS (ZOSYN/MEROPENEM) FOR AT LEAST ANOTHER 48 HRS. Objective - Vital Signs/Intake and Output Vital Signs (last 24 hours): Temp Pulse Resp BP Pulse Ox 96.2 F L 134 H 21 138/81 100 10/23/16 20:40 10/23/16 20:40 10/23/16 20:40 10/23/16 20:40 10/23/16 20:40 Intake and Output: 10/23/16 10/24/16 18:59 06:59 Intake Total 200 200 Balance 200 200 - Medications Medications: Current Medications Acetaminophen (Tylenol 325mg Tab) 325 mg PO Q6 PRN PRN Reason: fever Last Admin: 10/10/16 16:30 Dose: 325 mg Atorvastatin Calcium (Lipitor) 10 mg PO DAILY [facility] Last Admin: 10/23/16 10:49 Dose: 10 mg Dextrose (Dextrose 50% Inj) 0 ml IV STAT PRN; Protocol PRN Reason: Hyglycemia Protocol Dextrose (Glutose 15) 0 gm PO ONCE PRN; Protocol PRN Reason: Hypoglycemia Protocol Enalapril Maleate (Vasotec) 5 mg PO DAILY [facility] Last Admin: 10/23/16 10:48 Dose: 5 mg Glucagon (Glucagen Diagnostic Kit) 0 mg IM STAT PRN; Protocol PRN Reason: Hypoglycemia Protocol Piperacillin Sod/Tazobactam (Sod 3.375 gm/ Sodium Chloride) 100 mls @ 100 mls/ hr IVPB Q8H [facility] Last Admin: 10/23/16 17:52 Dose: 100 mls/hr Meropenem 1 gm/ Sodium (Chloride) 100 mls @ 100 mls/hr IVPB Q12 [facility] Last Admin: 10/23/16 10:46 Dose: 100 mls/hr Lactated Ringer's (Lactated Ringer's) 1,000 mls @ 100 mls/hr IV .Q10H [facility] Metoprolol Tartrate (Lopressor) 100 mg PO Q12 [facility] Last Admin: 10/23/16 10:48 Dose: 100 mg Metronidazole (Flagyl) 500 mg PO Q8 [facility] Last Admin: 10/23/16 17:35 Dose: Not Given Ondansetron HCl (Zofran Inj) 4 mg IVP Q6 PRN PRN Reason: Nausea/Vomiting Last Admin: 10/16/16 13:00 Dose: 4 mg Pantoprazole Sodium (Protonix Ec Tab) 40 mg PO BIDAC [facility] Last Admin: 10/23/16 17:36 Dose: Not Given Potassium Chloride (K-Dur 20 Meq Er Tab) 20 meq PO BID [facility] Last Admin: 10/23/16 17:35 Dose: Not Given Saccharomyces Boulardii (Florastor) 250 mg PO BID [facility] Last Admin: 10/23/16 17:35 Dose: Not Given Vitamin D (Vitamin D 400 Intl Units Tab) 400 intlu PO DAILY [facility] Last Admin: 10/23/16 10:48 Dose: 400 intlu - Labs Labs: 10/22/16 05:50 10/23/16 06:05 PT 15.3 Seconds (9.8-13.1) H 10/17/16 06:15 INR 1.5 (0.9-1.2) H 10/17/16 06:15 APTT 35.5 Seconds (25.6-37.1) 10/17/16 06:15
--- NOTE | 2016-10-23 23:25 | CARD ---
APPROVED REPORT EKG Measurement Heart [id number] NC 144P [id number] <Conclusion> Sinus bradycardia with marked sinus arrhythmia with occasional premature ventricular complexes Right bundle branch block Abnormal ECG
[2016-10-24] MEDS: Piperacillin/Tazobact 3.375 GM in Sodium Chloride 0.9% 100 ML IVPB SCH ×2 (01:25→09:47)
[2016-10-24] MEDS: Lactated Ringer's 1,000 ML IV SCH ×2 (06:15→15:54)
[2016-10-24] MEDS: Pantoprazole 40 mg EC Tab PO SCH ×2 (06:38→17:31)
--- NOTE | 2016-10-24 07:00 | CP.PCM.PN ---
Subjective - Date & Time of Evaluation Date of Evaluation: 10/24/16 Time of Evaluation: 06:53 - Subjective Subjective: urology Pt taken to OR last night. Therer was no evidence of bladder tumor as was suspect on CT. There was also no significant right hydronephrosis rather a right ureterovesicle junction stenosis. I inserted a diilating stent with string attached which i will remove either in hospital or in office in 1 week. He can be discharged home with this stent I gave the family an rx for keflex to take while at home. I advised the family of the precautions he need to take in the meantime Objective - Vital Signs/Intake and Output Vital Signs (last 24 hours): Temp Pulse Resp BP Pulse Ox 98.1 F 132 H 19 126/84 98 10/24/16 05:00 10/24/16 05:00 10/24/16 05:00 10/24/16 05:00 10/24/16 05:00 Intake and Output: 10/23/16 10/24/16 18:59 06:59 Intake Total 200 200 Balance 200 200 - Medications Medications: Current Medications Acetaminophen (Tylenol 325mg Tab) 325 mg PO Q6 PRN PRN Reason: fever Last Admin: 10/10/16 16:30 Dose: 325 mg Atorvastatin Calcium (Lipitor) 10 mg PO DAILY [facility] Last Admin: 10/23/16 10:49 Dose: 10 mg Dextrose (Dextrose 50% Inj) 0 ml IV STAT PRN; Protocol PRN Reason: Hyglycemia Protocol Dextrose (Glutose 15) 0 gm PO ONCE PRN; Protocol PRN Reason: Hypoglycemia Protocol Enalapril Maleate (Vasotec) 5 mg PO DAILY [facility] Last Admin: 10/23/16 10:48 Dose: 5 mg Glucagon (Glucagen Diagnostic Kit) 0 mg IM STAT PRN; Protocol PRN Reason: Hypoglycemia Protocol Piperacillin Sod/Tazobactam (Sod 3.375 gm/ Sodium Chloride) 100 mls @ 100 mls/ hr IVPB Q8H [facility] Last Admin: 10/24/16 01:25 Dose: 100 mls/hr Meropenem 1 gm/ Sodium (Chloride) 100 mls @ 100 mls/hr IVPB Q12 [facility] Last Admin: 10/23/16 21:58 Dose: 100 mls/hr Lactated Ringer's (Lactated Ringer's) 1,000 mls @ 100 mls/hr IV .Q10H [facility] Last Admin: 10/24/16 06:15 Dose: Not Given Metoprolol Tartrate (Lopressor) 100 mg PO Q12 [facility] Last Admin: 10/23/16 21:55 Dose: 100 mg Metronidazole (Flagyl) 500 mg PO Q8 [facility] Last Admin: 10/24/16 01:24 Dose: 500 mg Ondansetron HCl (Zofran Inj) 4 mg IVP Q6 PRN PRN Reason: Nausea/Vomiting Last Admin: 10/16/16 13:00 Dose: 4 mg Pantoprazole Sodium (Protonix Ec Tab) 40 mg PO BIDAC [facility] Last Admin: 10/24/16 06:38 Dose: 40 mg Potassium Chloride (K-Dur 20 Meq Er Tab) 20 meq PO BID [facility] Last Admin: 10/23/16 17:35 Dose: Not Given Saccharomyces Boulardii (Florastor) 250 mg PO BID [facility] Last Admin: 10/23/16 17:35 Dose: Not Given Vitamin D (Vitamin D 400 Intl Units Tab) 400 intlu PO DAILY [facility] Last Admin: 10/23/16 10:48 Dose: 400 intlu - Labs Labs: 10/22/16 05:50 10/23/16 06:05 PT 15.3 Seconds (9.8-13.1) H 10/17/16 06:15 INR 1.5 (0.9-1.2) H 10/17/16 06:15 APTT 35.5 Seconds (25.6-37.1) 10/17/16 06:15
[2016-10-24] MEDS: Saccharomyces Boulardi 250 mg Cap PO SCH ×2 (09:43→17:55)
[2016-10-24] MEDS: Cholecalciferol 400 Intl Units Tab PO SCH (09:44)
[2016-10-24] MEDS: Potassium Chloride 20 mEq ER Tab PO SCH ×2 (09:44→17:55)
[2016-10-24] MEDS: Meropenem 1 GM in Sodium Chloride 0.9% 100 ML IVPB SCH ×2 (09:45→21:13)
[2016-10-24] MEDS ORDERED: Digoxin 250 mcg (0.25 mg) Tab PO ONE (09:48)
--- NOTE | 2016-10-24 09:57 | CP.PCM.PN ---
Subjective - Date & Time of Evaluation Date of Evaluation: 10/24/16 Time of Evaluation: 09:00 - Subjective Subjective: Had Rt Vescicoureteral junction stented yesterday C/O dysurea and urgency No chills or fever Has had diarrhoeaX4-5 times this AM Telemetry shows recurrent bouts of A Fib (Often at 140 BPM) BP 124/70 mm Hg Will get Stool for C Def and start pt on Pyredium Pt on Beta Blockade have added Digoxin for rate contro Will need oral anticoagulation (will start in 2 days) Objective - Vital Signs/Intake and Output Vital Signs (last 24 hours): Temp Pulse Resp BP Pulse Ox 97.9 F 131 H 20 126/84 99 10/24/16 08:04 10/24/16 09:42 10/24/16 08:04 10/24/16 09:42 10/24/16 08:04 Intake and Output: 10/24/16 10/24/16 06:59 18:59 Intake Total 200 Balance 200 - Medications Medications: Current Medications Acetaminophen (Tylenol 325mg Tab) 325 mg PO Q6 PRN PRN Reason: fever Last Admin: 10/10/16 16:30 Dose: 325 mg Dextrose (Dextrose 50% Inj) 0 ml IV STAT PRN; Protocol PRN Reason: Hyglycemia Protocol Dextrose (Glutose 15) 0 gm PO ONCE PRN; Protocol PRN Reason: Hypoglycemia Protocol Digoxin (Lanoxin) 0.5 mg PO ONCE ONE Stop: 10/24/16 09:49 Glucagon (Glucagen Diagnostic Kit) 0 mg IM STAT PRN; Protocol PRN Reason: Hypoglycemia Protocol Piperacillin Sod/Tazobactam (Sod 3.375 gm/ Sodium Chloride) 100 mls @ 100 mls/ hr IVPB Q8H [facility] Last Admin: 10/24/16 09:47 Dose: 100 mls/hr Meropenem 1 gm/ Sodium (Chloride) 100 mls @ 100 mls/hr IVPB Q12 [facility] Last Admin: 10/24/16 09:45 Dose: 100 mls/hr Lactated Ringer's (Lactated Ringer's) 1,000 mls @ 100 mls/hr IV .Q10H [facility] Last Admin: 10/24/16 06:15 Dose: Not Given Metoprolol Tartrate (Lopressor) 100 mg PO Q12 [facility] Last Admin: 10/24/16 09:42 Dose: 100 mg Metronidazole (Flagyl) 500 mg PO Q8 [facility] Last Admin: 10/24/16 09:43 Dose: 500 mg Ondansetron HCl (Zofran Inj) 4 mg IVP Q6 PRN PRN Reason: Nausea/Vomiting Last Admin: 10/16/16 13:00 Dose: 4 mg Pantoprazole Sodium (Protonix Ec Tab) 40 mg PO BIDAC [facility] Last Admin: 10/24/16 06:38 Dose: 40 mg Phenazopyridine HCl (Pyridium) 100 mg PO TID [facility] Potassium Chloride (K-Dur 20 Meq Er Tab) 20 meq PO BID [facility] Last Admin: 10/24/16 09:44 Dose: 20 meq Saccharomyces Boulardii (Florastor) 250 mg PO BID [facility] Last Admin: 10/24/16 09:43 Dose: 250 mg - Labs Labs: 10/22/16 05:50 10/23/16 06:05 PT 15.3 Seconds (9.8-13.1) H 10/17/16 06:15 INR 1.5 (0.9-1.2) H 10/17/16 06:15 APTT 35.5 Seconds (25.6-37.1) 10/17/16 06:15
--- NOTE | 2016-10-24 15:54 | CP.PCM.PN ---
Subjective - Date & Time of Evaluation Date of Evaluation: 10/24/16 Time of Evaluation: 15:55 - Subjective Subjective: I D NOTE ONCE AGAIN HAVING DIARRHEA WILL DISCONTINUE ZOSYN,CONTINUE MEROPENEM C.DIFF AWAITED WILL DC FLAGYL GIVE LOW DOSE ORAL VANCOMYCIN Objective - Vital Signs/Intake and Output Vital Signs (last 24 hours): Temp Pulse Resp BP Pulse Ox 97.3 F L 117 H 20 132/85 97 10/24/16 12:00 10/24/16 12:00 10/24/16 12:00 10/24/16 12:00 10/24/16 12:00 Intake and Output: 10/24/16 10/24/16 06:59 18:59 Intake Total 200 Balance 200 - Medications Medications: Current Medications Acetaminophen (Tylenol 325mg Tab) 325 mg PO Q4 PRN PRN Reason: Pain, moderate (4-7) Last Admin: 10/24/16 14:39 Dose: 325 mg Dextrose (Dextrose 50% Inj) 0 ml IV STAT PRN; Protocol PRN Reason: Hyglycemia Protocol Dextrose (Glutose 15) 0 gm PO ONCE PRN; Protocol PRN Reason: Hypoglycemia Protocol Glucagon (Glucagen Diagnostic Kit) 0 mg IM STAT PRN; Protocol PRN Reason: Hypoglycemia Protocol Meropenem 1 gm/ Sodium (Chloride) 100 mls @ 100 mls/hr IVPB Q12 [facility] Last Admin: 10/24/16 09:45 Dose: 100 mls/hr Lactated Ringer's (Lactated Ringer's) 1,000 mls @ 100 mls/hr IV .Q10H [facility] Last Admin: 10/24/16 06:15 Dose: Not Given Metoprolol Tartrate (Lopressor) 100 mg PO Q12 [facility] Last Admin: 10/24/16 09:42 Dose: 100 mg Metronidazole (Flagyl) 500 mg PO Q8 [facility] Last Admin: 10/24/16 09:43 Dose: 500 mg Pantoprazole Sodium (Protonix Ec Tab) 40 mg PO BIDAC [facility] Last Admin: 10/24/16 06:38 Dose: 40 mg Phenazopyridine HCl (Pyridium) 100 mg PO TID [facility] Last Admin: 10/24/16 13:35 Dose: 100 mg Potassium Chloride (K-Dur 20 Meq Er Tab) 20 meq PO BID [facility] Last Admin: 10/24/16 09:44 Dose: 20 meq Saccharomyces Boulardii (Florastor) 250 mg PO BID [facility] Last Admin: 10/24/16 09:43 Dose: 250 mg - Labs Labs: 10/22/16 05:50 10/23/16 06:05 PT 15.3 Seconds (9.8-13.1) H 10/17/16 06:15 INR 1.5 (0.9-1.2) H 10/17/16 06:15 APTT 35.5 Seconds (25.6-37.1) 10/17/16 06:15
[2016-10-24] MEDS ORDERED: Vancomycin 500 mg (Oral/Rectal USE) PO SCH (17:00)
--- NOTE | 2016-10-24 18:16 | OP ---
PROCEDURE DATE: 10/23/2016 PREOPERATIVE DIAGNOSIS: Right hydronephrosis with questionable bladder tumor. 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 PROCEDURE PERFORMED: Cystoscopy, right retrograde pyelogram, right ureteroscopy, and insertion of a double-J stent. TYPE OF ANESTHESIA: General anesthesia. DESCRIPTION OF PROCEDURE: The patient was placed on the operating room table in dorsal lithotomy position. The area of the groin were draped and prepped in the sterile manner. Using a 21-cystoscope by entry into the bladder atraumatically evaluated for the potential presence of bladder tumor in the bladder and there was none. I identified both ureteral orifices and the right ureteral orifice at this point, I inserted a cone-tip catheter and injected a retrograde pyelogram. In several shots, I was able to see that there was fullness of the ureter, but not significant hydronephrosis was noted. At this time, I removed the cone-tip catheter, I wanted to put in an open-ended ureteral catheter, it did not fit through the area, tried to put in a sensor wire that was tight, and so then under direct vision, I did a ureteroscopy with the guidewire then in place, I was able to dilate the ureter to a 7-Portuguese. I left the 7-Portuguese double-J stent with the string attached. It will be left in for several days for dilatation purposes. Once this was done, then the patient was taken from the operating room in good condition. Amber Levin MD
[2016-10-24] MEDS: Vancomycin 500 mg Inj PO SCH (18:35)
[2016-10-25] MEDS: Lactated Ringer's 1,000 ML IV SCH ×2 (00:47→11:40)
[2016-10-25] MEDS: Vancomycin 500 mg Inj PO SCH (00:47)
[2016-10-25 07:13] LABS: BASO # 0.1 K/uL (0.0-0.2); BASO % 0.6 % (0.0-2.0); EOS # 0.1 K/uL (0.0-0.7); EOS % 0.9 % (0.0-4.0); HEMATOCRIT 31.4 % (35.0-51.0); LYMPH # 1.8 K/uL (1.0-4.3); MEAN CELL VOLUME 86.5 fl (80.0-94.0); MEAN CORPUSCULAR HEMOGLOBIN 28.6 pg (27.0-31.0); MEAN PLATELET VOLUME 7.6 fl (7.2-11.7); MONO # 0.8 K/uL (0.0-0.8); MONO % 7.7 % (0.0-10.0); NEUT % 73.8 % (50.0-75.0); RED CELL DISTRIBUTION WIDTH 16.2 % (11.5-14.5); WHITE BLOOD COUNT 10.9 K/uL (4.8-10.8)
[2016-10-25 07:22] LABS: ALB/GLOB RATIO 0.8 (1.0-2.1); ALKALINE PHOSPHATASE 62 U/L (38-126); ALT/SGPT 20 U/L (21-72); AST/SGOT 18 U/L (17-59); BILIRUBIN,TOTAL 0.5 mg/dl (0.2-1.3); BLOOD UREA NITROGEN 16 mg/dl (9-20); CALCIUM 8.6 mg/dL (8.4-10.2); CARBON DIOXIDE 20 mmol/L (22-30); CHLORIDE 103 mmol/L (98-107); GFR AFRICAN-AMERICAN > 60; GLUCOSE,RANDOM 124 mg/dL (75-110); SODIUM 133 mmol/l (132-148); TOTAL PROTEIN 6.9 G/DL (6.3-8.2)
[2016-10-25] MEDS: Pantoprazole 40 mg EC Tab PO SCH ×2 (08:38→18:07)
[2016-10-25] MEDS: Potassium Chloride 20 mEq ER Tab PO SCH ×2 (09:35→18:07)
[2016-10-25] MEDS: Saccharomyces Boulardi 250 mg Cap PO SCH ×2 (09:35→18:07)
[2016-10-25] MEDS: Meropenem 1 GM in Sodium Chloride 0.9% 100 ML IVPB SCH (09:37)
[2016-10-25] MEDS ORDERED: Atropine-Diphenoxylate 0.025-2.5 mg Tab PO PRN (11:26)
--- NOTE | 2016-10-25 11:32 | CP.PCM.PN ---
Subjective - Date & Time of Evaluation Date of Evaluation: 10/25/16 Time of Evaluation: 10:00 - Subjective Subjective: Continues to have diarrhoea No nausea, chills or fever Telemetry shows recurrent bouts of A Flutter/fib with HR 120-130 BPM interrupted by sinus rhythm at 60-70 BPM BP 122/70 mm Hg No signs of CHF Abd soft, no tenderness or distension Labs show mild leucocytosis (10.6) No azotemia, normal electrolytes Will raise Beta blockade to Metoprolol 150 Mg BID Strted on Lomotil Objective - Vital Signs/Intake and Output Vital Signs (last 24 hours): Temp Pulse Resp BP Pulse Ox 97.7 F 118 H 20 121/67 99 10/25/16 08:14 10/25/16 09:36 10/25/16 08:14 10/25/16 09:36 10/25/16 08:14 - Medications Medications: Current Medications Acetaminophen (Tylenol 325mg Tab) 325 mg PO Q4 PRN PRN Reason: Pain, moderate (4-7) Last Admin: 10/25/16 01:54 Dose: 325 mg Dextrose (Dextrose 50% Inj) 0 ml IV STAT PRN; Protocol PRN Reason: Hyglycemia Protocol Dextrose (Glutose 15) 0 gm PO ONCE PRN; Protocol PRN Reason: Hypoglycemia Protocol Digoxin (Lanoxin) 0.25 mg PO DAILY [facility] Diphenoxylate HCl/Atropine (Lomotil 0.025-2.5 Mg Tablet) 1 tab PO QID PRN PRN Reason: Diarrhea Glucagon (Glucagen Diagnostic Kit) 0 mg IM STAT PRN; Protocol PRN Reason: Hypoglycemia Protocol Meropenem 1 gm/ Sodium (Chloride) 100 mls @ 100 mls/hr IVPB Q12 [facility] Last Admin: 10/25/16 09:37 Dose: 100 mls/hr Lactated Ringer's (Lactated Ringer's) 1,000 mls @ 100 mls/hr IV .Q10H [facility] Last Admin: 10/25/16 00:47 Dose: 100 mls/hr Metoprolol Tartrate (Lopressor) 100 mg PO Q12 [facility] Last Admin: 10/25/16 09:36 Dose: 100 mg Pantoprazole Sodium (Protonix Ec Tab) 40 mg PO BIDAC [facility] Last Admin: 10/25/16 08:38 Dose: 40 mg Phenazopyridine HCl (Pyridium) 100 mg PO TID [facility] Last Admin: 10/25/16 09:39 Dose: 100 mg Potassium Chloride (K-Dur 20 Meq Er Tab) 20 meq PO BID [facility] Last Admin: 10/25/16 09:35 Dose: 20 meq Saccharomyces Boulardii (Florastor) 250 mg PO BID [facility] Last Admin: 10/25/16 09:35 Dose: 250 mg Vancomycin HCl (Vancomycin Inj) 125 mg PO Q8 [facility] Last Admin: 10/25/16 00:47 Dose: 125 mg - Labs Labs: 10/25/16 05:00 10/25/16 05:00 PT 15.3 Seconds (9.8-13.1) H 10/17/16 06:15 INR 1.5 (0.9-1.2) H 10/17/16 06:15 APTT 35.5 Seconds (25.6-37.1) 10/17/16 06:15
[2016-10-25] MEDS: Digoxin 250 mcg (0.25 mg) Tab PO SCH (13:04)
[2016-10-26] MEDS: Vancomycin 500 mg Inj PO SCH ×4 (00:43→17:51)
[2016-10-26] MEDS: Digoxin 250 mcg (0.25 mg) Tab PO SCH (09:37)
[2016-10-26] MEDS: Potassium Chloride 20 mEq ER Tab PO SCH ×2 (09:37→17:52)
[2016-10-26] MEDS: Pantoprazole 40 mg EC Tab PO SCH ×2 (09:39→17:53)
[2016-10-26] MEDS: Saccharomyces Boulardi 250 mg Cap PO SCH ×2 (09:40→17:52)
--- NOTE | 2016-10-26 10:45 | CP.PCM.PN ---
Subjective - Date & Time of Evaluation Date of Evaluation: 10/26/16 Time of Evaluation: 07:45 - Subjective Subjective: Resting but appears exhausted Has had 2-3 BMs during night Mostly in sinus rhythm during night, A Flutter in AM BP 124/74 mm Hg No CHF Will initiate oral anticoagulation due to high CHADS score Discussed risk of GI bleed with Dr. Madrid (duodenal ullcer) Will explain to the family as well Objective - Vital Signs/Intake and Output Vital Signs (last 24 hours): Temp Pulse Resp BP Pulse Ox 97.9 F 127 H 18 133/77 96 10/26/16 08:08 10/26/16 08:08 10/26/16 08:08 10/26/16 08:08 10/26/16 08:08 - Medications Medications: Current Medications Acetaminophen (Tylenol 325mg Tab) 325 mg PO Q4 PRN PRN Reason: Pain, moderate (4-7) Last Admin: 10/25/16 01:54 Dose: 325 mg Dextrose (Dextrose 50% Inj) 0 ml IV STAT PRN; Protocol PRN Reason: Hyglycemia Protocol Dextrose (Glutose 15) 0 gm PO ONCE PRN; Protocol PRN Reason: Hypoglycemia Protocol Digoxin (Lanoxin) 0.25 mg PO DAILY [facility] Last Admin: 10/26/16 09:37 Dose: 0.25 mg Diphenoxylate HCl/Atropine (Lomotil 0.025-2.5 Mg Tablet) 1 tab PO QID PRN PRN Reason: Diarrhea Last Admin: 10/25/16 13:03 Dose: 1 tab Glucagon (Glucagen Diagnostic Kit) 0 mg IM STAT PRN; Protocol PRN Reason: Hypoglycemia Protocol Metoprolol Tartrate (Lopressor) 150 mg PO Q12 [facility] Last Admin: 10/25/16 21:57 Dose: 150 mg Pantoprazole Sodium (Protonix Ec Tab) 40 mg PO BIDAC [facility] Last Admin: 10/26/16 09:39 Dose: 40 mg Phenazopyridine HCl (Pyridium) 100 mg PO TID [facility] Last Admin: 10/26/16 09:39 Dose: 100 mg Potassium Chloride (K-Dur 20 Meq Er Tab) 20 meq PO BID [facility] Last Admin: 10/26/16 09:37 Dose: 20 meq Saccharomyces Boulardii (Florastor) 250 mg PO BID [facility] Last Admin: 10/26/16 09:40 Dose: 250 mg Vancomycin HCl (Vancomycin Inj) 125 mg PO Q8 [facility] Last Admin: 10/26/16 09:43 Dose: 125 mg - Labs Labs: 10/25/16 05:00 10/25/16 05:00 PT 15.3 Seconds (9.8-13.1) H 10/17/16 06:15 INR 1.5 (0.9-1.2) H 10/17/16 06:15 APTT 35.5 Seconds (25.6-37.1) 10/17/16 06:15
--- NOTE | 2016-10-26 14:47 | RAD ---
PROCEDURE: Intraoperative fluoroscopy HISTORY: CYSTO COMPARISON: Not available TECHNIQUE: Intraoperative fluoroscopy was provided for right retrograde pyeloureterography and right ureteral stent placement. Total time of fluoroscopy was less than 1 hour. FINDINGS: Multiple fluoroscopic spot films are submitted. These films are on file for review. IMPRESSION: Fluoroscopy provided
[2016-10-27] MEDS: Vancomycin 500 mg Inj PO SCH ×3 (00:39→17:08)
[2016-10-27] MEDS: Pantoprazole 40 mg EC Tab PO SCH ×2 (08:42→17:08)
[2016-10-27] MEDS: Saccharomyces Boulardi 250 mg Cap PO SCH (09:20)
[2016-10-27] MEDS: Potassium Chloride 20 mEq ER Tab PO SCH ×2 (09:21→17:08)
[2016-10-27] MEDS: Digoxin 250 mcg (0.25 mg) Tab PO SCH (09:21)
[2016-10-27 09:24] VITALS: PULSE 114
--- NOTE | 2016-10-27 12:14 | CP.PCM.PN ---
Subjective - Date & Time of Evaluation Date of Evaluation: 10/27/16 Time of Evaluation: 11:00 - Subjective Subjective: Generally feels well Diarrhoea has virtually resolve Appetite is better Telemetry shows periods of a flutter/fib interrupted by sinus arrest with juan carlos escape at 30-32 BPM for upto 10 sec before sinus rhythm emerges at 50-60 BPM followed soon by A Flutter/fib at 130-140 BPM No CHF BP 124/70 mm Hg Pt on Metoprolol 150 Mg BID and Digoxin 0.25 mg daily This Tachy/James syndrome requires pacing Need for pacer explained to the pt and his two daughters They need time to think things over They want me to speak with their brother tomorrow. Have D/[place]field Digoxin Objective - Vital Signs/Intake and Output Vital Signs (last 24 hours): Temp Pulse Resp BP Pulse Ox 97.6 F 99 H 20 129/69 98 10/27/16 08:00 10/27/16 08:00 10/27/16 08:00 10/27/16 08:00 10/27/16 08:00 - Medications Medications: Current Medications Acetaminophen (Tylenol 325mg Tab) 325 mg PO Q4 PRN PRN Reason: Pain, moderate (4-7) Last Admin: 10/25/16 01:54 Dose: 325 mg Metoprolol Tartrate (Lopressor) 150 mg PO Q12 [facility] Last Admin: 10/26/16 21:16 Dose: 150 mg Pantoprazole Sodium (Protonix Ec Tab) 40 mg PO BIDAC [facility] Last Admin: 10/27/16 08:42 Dose: 40 mg Phenazopyridine HCl (Pyridium) 100 mg PO TID [facility] Last Admin: 10/27/16 09:21 Dose: 100 mg Potassium Chloride (K-Dur 20 Meq Er Tab) 20 meq PO BID [facility] Last Admin: 10/27/16 09:21 Dose: 20 meq Vancomycin HCl (Vancomycin Inj) 125 mg PO Q8 [facility] Last Admin: 10/27/16 09:23 Dose: 125 mg - Labs Labs: 10/25/16 05:00 10/25/16 05:00 PT 15.3 Seconds (9.8-13.1) H 10/17/16 06:15 INR 1.5 (0.9-1.2) H 10/17/16 06:15 APTT 35.5 Seconds (25.6-37.1) 10/17/16 06:15
[2016-10-28] MEDS: Vancomycin 500 mg Inj PO SCH ×3 (01:35→16:46)
[2016-10-28 08:27] LABS: ALB/GLOB RATIO 0.9 (1.0-2.1); ALKALINE PHOSPHATASE 73 U/L (38-126); ALT/SGPT 24 U/L (21-72); AST/SGOT 27 U/L (17-59); BILIRUBIN,TOTAL 0.6 mg/dl (0.2-1.3); BLOOD UREA NITROGEN 11 mg/dl (9-20); CARBON DIOXIDE 26 mmol/L (22-30); CHLORIDE 101 mmol/L (98-107); GFR AFRICAN-AMERICAN > 60; GLUCOSE,RANDOM 128 mg/dL (75-110); SODIUM 135 mmol/l (132-148); TOTAL PROTEIN 7.4 G/DL (6.3-8.2)
[2016-10-28] MEDS: Pantoprazole 40 mg EC Tab PO SCH ×2 (08:30→16:46)
[2016-10-28 09:17] LABS: HEMATOCRIT 33.6 % (35.0-51.0); MEAN CELL VOLUME 86.6 fl (80.0-94.0); MEAN CORPUSCULAR HEMOGLOBIN 28.6 pg (27.0-31.0); RED CELL DISTRIBUTION WIDTH 16.6 % (11.5-14.5); WHITE BLOOD COUNT 9.1 K/uL (4.8-10.8)
[2016-10-28] MEDS: Potassium Chloride 20 mEq ER Tab PO SCH ×2 (10:19→16:45)
--- NOTE | 2016-10-28 11:05 | CP.PCM.PN ---
Subjective - Date & Time of Evaluation Date of Evaluation: 10/28/16 Time of Evaluation: 10:00 - Subjective Subjective: Diarrhoea has resolved Appetite is better Telemetry shows periods of A Fib at 120 BPM interspered with sinus rhythm at 50-60 BPM (brief periods of juan carlos escape following bursts of A Fib) BP 124/74 mm Hg CBC and CMP Satisfactory Pt off of Digoxin Pt will stay on telemetry for an addl 24 hours Objective - Vital Signs/Intake and Output Vital Signs (last 24 hours): Temp Pulse Resp BP Pulse Ox 97.0 F L 67 20 153/73 H 99 10/28/16 10:27 10/28/16 10:27 10/28/16 10:27 10/28/16 10:27 10/28/16 10:27 Intake and Output: 10/28/16 10/28/16 06:59 18:59 Intake Total 200 Balance 200 - Medications Medications: Current Medications Acetaminophen (Tylenol 325mg Tab) 325 mg PO Q4 PRN PRN Reason: Pain, moderate (4-7) Last Admin: 10/25/16 01:54 Dose: 325 mg Metoprolol Tartrate (Lopressor) 150 mg PO Q12 [facility] Last Admin: 10/28/16 10:18 Dose: 150 mg Pantoprazole Sodium (Protonix Ec Tab) 40 mg PO BIDAC [facility] Last Admin: 10/28/16 08:30 Dose: 40 mg Phenazopyridine HCl (Pyridium) 100 mg PO TID [facility] Last Admin: 10/28/16 10:19 Dose: 100 mg Potassium Chloride (K-Dur 20 Meq Er Tab) 20 meq PO BID [facility] Last Admin: 10/28/16 10:19 Dose: 20 meq Vancomycin HCl (Vancomycin Inj) 125 mg PO Q8 [facility] Last Admin: 10/28/16 10:20 Dose: 125 mg - Labs Labs: 10/28/16 06:00 10/28/16 06:00 PT 15.3 Seconds (9.8-13.1) H 10/17/16 06:15 INR 1.5 (0.9-1.2) H 10/17/16 06:15 APTT 35.5 Seconds (25.6-37.1) 10/17/16 06:15
[2016-10-29] MEDS: Vancomycin 500 mg Inj PO SCH ×2 (00:53→09:12)
[2016-10-29 05:28] VITALS: RESP 18; O2SAT 99
[2016-10-29] MEDS: Pantoprazole 40 mg EC Tab PO SCH (08:30)
[2016-10-29 08:58] VITALS: BP 145/68; TEMP 97.5
[2016-10-29] MEDS: Potassium Chloride 20 mEq ER Tab PO SCH (09:12)
--- NOTE | 2016-10-29 09:22 | CP.PCM.PN ---
Subjective - Date & Time of Evaluation Date of Evaluation: 10/29/16 Time of Evaluation: 09:00 - Subjective Subjective: Had a comfortable 24 hrs No abd discomfort, nausea or diarrhoea Telemetry shows sinus rhythm since 7:40 PM yesterday (except APCs) HR 60-80 BPM BP 126/80 mm Hg No signs of CHF Being sent home on present Rx and Xarelto Risks and benefits explained ( has deep duodenal ulced and A Fib with high CHADS score) Will have CBC monitored and Holter recording as out pt. Objective - Vital Signs/Intake and Output Vital Signs (last 24 hours): Temp Pulse Resp BP Pulse Ox 97.5 F L 59 L 18 145/68 99 10/29/16 08:57 10/29/16 08:57 10/29/16 08:57 10/29/16 08:57 10/29/16 08:57 Intake and Output: 10/29/16 10/29/16 06:59 18:59 Intake Total 400 Balance 400 - Medications Medications: Current Medications Acetaminophen (Tylenol 325mg Tab) 325 mg PO Q4 PRN PRN Reason: Pain, moderate (4-7) Last Admin: 10/25/16 01:54 Dose: 325 mg Metoprolol Tartrate (Lopressor) 150 mg PO Q12 [facility] Last Admin: 10/28/16 21:51 Dose: 150 mg Pantoprazole Sodium (Protonix Ec Tab) 40 mg PO BIDAC [facility] Last Admin: 10/29/16 08:30 Dose: 40 mg Phenazopyridine HCl (Pyridium) 100 mg PO TID [facility] Last Admin: 10/29/16 09:11 Dose: 100 mg Potassium Chloride (K-Dur 20 Meq Er Tab) 20 meq PO BID [facility] Last Admin: 10/29/16 09:12 Dose: 20 meq Vancomycin HCl (Vancomycin Inj) 125 mg PO Q8 [facility] Last Admin: 10/29/16 09:12 Dose: 125 mg - Labs Labs: 10/28/16 06:00 10/28/16 06:00 PT 15.3 Seconds (9.8-13.1) H 10/17/16 06:15 INR 1.5 (0.9-1.2) H 10/17/16 06:15 APTT 35.5 Seconds (25.6-37.1) 10/17/16 06:15
[2016-10-29 09:28] VITALS: PULSE 58
--- NOTE | 2016-10-30 07:24 | CP.PCM.DIS ---
Provider - Provider Date of Admission: 10/08/16 20:51 Attending physician: Guillermo Onofre MD Hospital Course - Lab Results Lab Results: Micro Results 10/22/16 05:50 Blood Blood Culture - Final NO GROWTH AFTER 5 DAYS 10/22/16 05:50 Blood Gram Stain - Final 10/20/16 19:12 Urine,Clean Catch Urine Culture - Final No Growth (<1,000 CFU/ML) 10/12/16 07:46 Blood Blood Culture - Final NO GROWTH AFTER 5 DAYS 10/12/16 07:46 Blood Gram Stain - Final TEST NOT PERFORMED 10/14/16 14:00 Stool Ova and Parasite Concentrate Exam - Final 10/14/16 14:00 Stool Stool Culture - Final NO SALMONELLA, SHIGELLA OR CAMPYLOBACTER ISOLATED. 10/10/16 15:30 Blood Blood Culture - Final NO GROWTH AFTER 5 DAYS 10/10/16 15:30 Blood Gram Stain - Final TEST NOT PERFORMED 10/09/16 19:50 Blood Blood Culture - Final Escherichia Coli 10/09/16 19:50 Blood Gram Stain - Final 10/10/16 12:17 Urine Urine Culture - Final No Growth (<1,000 CFU/ML) Most Recent Lab Values WBC 9.1 K/uL (4.8-10.8) 10/28/16 06:00 RBC 3.87 Mil/uL (4.40-5.90) L 10/28/16 06:00 Hgb 11.1 g/dL (12.0-18.0) L 10/28/16 06:00 Hct 33.6 % (35.0-51.0) L 10/28/16 06:00 MCV 86.6 fl (80.0-94.0) 10/28/16 06:00 MCH 28.6 pg (27.0-31.0) 10/28/16 06:00 MCHC 33.0 g/dL (33.0-37.0) 10/28/16 06:00 RDW 16.6 % (11.5-14.5) H 10/28/16 06:00 Plt Count 283 K/uL (130-400) 10/28/16 06:00 MPV 7.6 fl (7.2-11.7) 10/25/16 05:00 Neut % (Auto) 73.8 % (50.0-75.0) 10/25/16 05:00 Lymph % (Auto) 17.0 % (20.0-40.0) L 10/25/16 05:00 Foard % (Auto) 7.7 % (0.0-10.0) 10/25/16 05:00 Eos % (Auto) 0.9 % (0.0-4.0) 10/25/16 05:00 Baso % (Auto) 0.6 % (0.0-2.0) 10/25/16 05:00 Neut # 8.0 K/uL (1.8-7.0) H 10/25/16 05:00 Lymph # 1.8 K/uL (1.0-4.3) 10/25/16 05:00 Foard # 0.8 K/uL (0.0-0.8) 10/25/16 05:00 Eos # 0.1 K/uL (0.0-0.7) 10/25/16 05:00 Baso # 0.1 K/uL (0.0-0.2) 10/25/16 05:00 Neutrophils % (Manual) 89 % (42-75) H 10/11/16 05:00 Band Neutrophils % 8 % (0-2) H 10/09/16 06:55 Lymphocytes % (Manual) 6 % (20-50) L 10/11/16 05:00 Monocytes % (Manual) 5 % (0-10) 10/11/16 05:00 Basophils % (Manual) 1 % (0-2) 10/08/16 18:58 Toxic Granulation Present 10/08/16 18:58 Platelet Estimate Normal (NORMAL) 10/11/16 05:00 Large Platelets Present 10/11/16 05:00 Hypochromasia (manual) Slight 10/08/16 18:58 Poikilocytosis (manual Slight 10/11/16 05:00 Anisocytosis (manual) Slight 10/11/16 05:00 PT 15.3 Seconds (9.8-13.1) H 10/17/16 06:15 INR 1.5 (0.9-1.2) H 10/17/16 06:15 APTT 35.5 Seconds (25.6-37.1) 10/17/16 06:15 pO2 59 mm/Hg (30-55) H 10/08/16 19:00 VBG pH 7.43 (7.32-7.43) 10/08/16 19:00 VBG pCO2 28 mmHg (40-60) L 10/08/16 19:00 VBG HCO3 21.3 mmol/L 10/08/16 19:00 VBG Total CO2 19.5 mmol/L (22-28) L 10/08/16 19:00 VBG O2 Sat (Calc) 96.5 % (40-65) H 10/08/16 19:00 VBG Base Excess -4.4 mmol/L (0.0-2.0) L 10/08/16 19:00 VBG Potassium 4.3 mmol/L (3.6-5.2) 10/08/16 19:00 A-a O2 Difference 56.0 mm/Hg 10/08/16 19:00 Sodium 131.0 mmol/L (132-148) L 10/08/16 19:00 Chloride 103.0 mmol/L (98-107) 10/08/16 19:00 Glucose 107 mg/dL (75-110) 10/08/16 19:00 Lactate 1.8 mmol/L (0.7-2.1) 10/08/16 19:00 FiO2 21.0 % 10/08/16 19:00 Sodium 135 mmol/l (132-148) 10/28/16 06:00 Potassium 4.0 MMOL/L (3.6-5.0) 10/28/16 06:00 Chloride 101 mmol/L (98-107) 10/28/16 06:00 Carbon Dioxide 26 mmol/L (22-30) 10/28/16 06:00 Anion Gap 12 (10-20) 10/28/16 06:00 BUN 11 mg/dl (9-20) 10/28/16 06:00 Creatinine 1.2 mg/dL (0.8-1.5) 10/28/16 06:00 Est GFR ( Amer) > 60 10/28/16 06:00 Est GFR (Non-Af Amer) 59 10/28/16 06:00 POC Glucose (mg/dL) 141 mg/dL (65-110) H 10/29/16 05:45 Random Glucose 128 mg/dL (75-110) H 10/28/16 06:00 Lactic Acid 1.6 MMOL/L (0.7-2.1) 10/09/16 19:53 Calcium 9.0 mg/dL (8.4-10.2) 10/28/16 06:00 Phosphorus 3.6 mg/dl (2.5-4.5) 10/08/16 18:58 Magnesium 1.8 MG/DL (1.6-2.3) 10/10/16 17:30 Total Bilirubin 0.6 mg/dl (0.2-1.3) 10/28/16 06:00 Direct Bilirubin 0.4 mg/ml (0.0-0.4) 10/15/16 06:05 AST 27 U/L (17-59) 10/28/16 06:00 ALT 24 U/L (21-72) 10/28/16 06:00 Alkaline Phosphatase 73 U/L (38-126) 10/28/16 06:00 Troponin I 0.3370 ng/mL (0.00-0.120) H* 10/09/16 12:20 Total Protein 7.4 G/DL (6.3-8.2) 10/28/16 06:00 Albumin 3.5 g/dL (3.5-5.0) 10/28/16 06:00 Globulin 3.9 gm/dL (2.2-3.9) 10/28/16 06:00 Albumin/Globulin Ratio 0.9 (1.0-2.1) L 10/28/16 06:00 Amylase 81 U/L (30-110) 10/15/16 06:05 Lipase 174 U/L (23-300) 10/15/16 06:05 CA 19-9 Antigen 87.0 U/mL (0-37) H 10/15/16 06:05 Procalcitonin 5.97 NG/ML (0.19-0.49) H 10/10/16 06:20 Venous Blood Potassium 4.3 mmol/L (3.6-5.2) 10/08/16 19:00 Urine Color Yellow (YELLOW) 10/08/16 19:43 Urine Clarity Cloudy (Clear) 10/08/16 19:43 Urine pH 5.0 (5.0-8.0) 10/08/16 19:43 Ur Specific [place] 1.019 (1.003-1.030) 10/08/16 19:43 Urine Protein 30 mg/dL (NEGATIVE) 10/08/16 19:43 Urine Glucose (UA) Neg mg/dL (Normal) 10/08/16 19:43 Urine Ketones Negative mg/dL (NEGATIVE) 10/08/16 19:43 Urine Blood Moderate (NEGATIVE) 10/08/16 19:43 Urine Nitrate Negative (NEGATIVE) 10/08/16 19:43 Urine Bilirubin Negative (NEGATIVE) 10/08/16 19:43 Urine Urobilinogen 0.2-1.0 mg/dL (0.2-1.0) 10/08/16 19:43 Ur Leukocyte Esterase Large Cornelio/uL (Negative) 10/08/16 19:43 Urine RBC (Auto) 21 /hpf (0-3) H 10/08/16 19:43 Urine Microscopic WBC 155 /hpf (0-5) H 10/08/16 19:43 Urine Bacteria Rare (<OCC) 10/08/16 19:43 Ur Random Amylase 67 U/L (32-641) 10/14/16 14:00 Stool Occult Blood Positive (NEGATIVE) H 10/10/16 12:17 C. difficile Ag & Toxin Negative (NEGATIVE) 10/24/16 12:17 - Hospital Course Hospital Course: This 76-year -old hypertensive and diabetic man with a history of coronary artery disease that had required coronary bypass graft surgery more than 10 years back, an ex- smoker came into the hospital with abdominal pain chills and diarrhea and was found to have a rectal temperature of 101.8F and a markedly elevated leukocyte count. The patient was admitted to the hospital with a diagnosis of sepsis. A CT scan of the abdomen showed evidence of dilated biliary tracts without any evidence off or occluding biliary calculus. There was evidence off right hydronephrosis with evidence of inflammation around right kidney. Blood and urine cultures showed Escherichia coli. His BUNs was 16 and creatinine was 1.6 mg percent at admission which on following day lisa to 24 and 17 mg percent respectively. His leukocyte count was 33,400 with a normal hemoglobin. His serum lactate level was 1.8 mg percent. Because of diarrhea the stool was tested for C. difficile which was negative but BLOOD was positive. The patient was seen by an infectious disease specialist and initially he was started on Zosyn and Cleocin. Eventually Maxipeme and Flagyl were also used in managing him. The patient was seen by a cargo trimmer because of abnormal findings on CT scan of the abdomen as noted above and the patient underwent an endoscopy and colonoscopy. The endoscopy revealed a deep duodenal ulcer. No evidence of biliary obstruction was detected. Patient's amylase and lipase as well as liver profile remained normal throughout his hospitalization. The patient arrived in the hospital with atrial flutter and 2-1 AV block giving him a heart rate mostly which was between 150 and 165 bpm. Metoprolol was used to control his heart rate. Eventually the patient displayed atrial flutter fibrillation and gradually his doses of metoprolol with a raised from 50 mg once a day which she used to take as an outpatient eventually 150 mg twice a day in spite of which she continued to display a moderate degree of tachycardia. The patient eventually needed admission of digoxin to control his heart rate. His leukocytosis gradually resolved he became afebrile abdominal distention and persistent diarrhea also gradually resolved blood and urine cultures were consistently negative subsequently. His BUN/creatinine and electrolytes came normal. On October 26 the patient showed severe bradycardia interspersed with periods of atrial fibrillation with heart rates between 130 and 140 bpm while on metoprolol and digoxin. 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 The possibility of possibly requiring a pacemaker was also discussed. Digoxin was discontinued and the following day patient had a moderate heart rate of 110 to 120 bpm and on the day of discharge the telemetry had shown more than 14 hours of steady sinus rhythm with only premature atrial beats. An echocardiogram done during this hospitalization showed a preserved left ventricular systolic function. Discharge Exam - Head Exam Head Exam: ATRAUMATIC, NORMAL INSPECTION, NORMOCEPHALIC Discharge Plan - Discharge Medications Prescriptions: Metoprolol Tartrate [Lopressor] 150 mg PO Q12 #90 tab Pantoprazole [Protonix EC Tab] 40 mg PO BIDAC #60 ect Phenazopyridine [Pyridium] 100 mg PO TID #20 tab - Follow Up Plan Condition: FAIR Disposition: HOME/ ROUTINE Instructions: Atrial Flutter (DC), Cystoscopy (DC) Referrals: [facility],MD Maurice [Medical Doctor] - 4 Weeks (Needs repeat EGD) Guillermo Onofre MD [Staff Provider] -
--- NOTE | 2016-10-30 07:25 | CP.PCM.DIS ---
Provider - Provider Date of Admission: 10/08/16 20:51 Attending physician: Guillermo Onofre MD Time Spent in preparation of Discharge (in minutes): 40 Hospital Course - Lab Results Lab Results: Micro Results 10/22/16 05:50 Blood Blood Culture - Final NO GROWTH AFTER 5 DAYS 10/22/16 05:50 Blood Gram Stain - Final 10/20/16 19:12 Urine,Clean Catch Urine Culture - Final No Growth (<1,000 CFU/ML) 10/12/16 07:46 Blood Blood Culture - Final NO GROWTH AFTER 5 DAYS 10/12/16 07:46 Blood Gram Stain - Final TEST NOT PERFORMED 10/14/16 14:00 Stool Ova and Parasite Concentrate Exam - Final 10/14/16 14:00 Stool Stool Culture - Final NO SALMONELLA, SHIGELLA OR CAMPYLOBACTER ISOLATED. 10/10/16 15:30 Blood Blood Culture - Final NO GROWTH AFTER 5 DAYS 10/10/16 15:30 Blood Gram Stain - Final TEST NOT PERFORMED 10/09/16 19:50 Blood Blood Culture - Final Escherichia Coli 10/09/16 19:50 Blood Gram Stain - Final 10/10/16 12:17 Urine Urine Culture - Final No Growth (<1,000 CFU/ML) Most Recent Lab Values WBC 9.1 K/uL (4.8-10.8) 10/28/16 06:00 RBC 3.87 Mil/uL (4.40-5.90) L 10/28/16 06:00 Hgb 11.1 g/dL (12.0-18.0) L 10/28/16 06:00 Hct 33.6 % (35.0-51.0) L 10/28/16 06:00 MCV 86.6 fl (80.0-94.0) 10/28/16 06:00 MCH 28.6 pg (27.0-31.0) 10/28/16 06:00 MCHC 33.0 g/dL (33.0-37.0) 10/28/16 06:00 RDW 16.6 % (11.5-14.5) H 10/28/16 06:00 Plt Count 283 K/uL (130-400) 10/28/16 06:00 MPV 7.6 fl (7.2-11.7) 10/25/16 05:00 Neut % (Auto) 73.8 % (50.0-75.0) 10/25/16 05:00 Lymph % (Auto) 17.0 % (20.0-40.0) L 10/25/16 05:00 [place] % (Auto) 7.7 % (0.0-10.0) 10/25/16 05:00 Eos % (Auto) 0.9 % (0.0-4.0) 10/25/16 05:00 Baso % (Auto) 0.6 % (0.0-2.0) 10/25/16 05:00 Neut # 8.0 K/uL (1.8-7.0) H 10/25/16 05:00 Lymph # 1.8 K/uL (1.0-4.3) 10/25/16 05:00 [place] # 0.8 K/uL (0.0-0.8) 10/25/16 05:00 Eos # 0.1 K/uL (0.0-0.7) 10/25/16 05:00 Baso # 0.1 K/uL (0.0-0.2) 10/25/16 05:00 Neutrophils % (Manual) 89 % (42-75) H 10/11/16 05:00 Band Neutrophils % 8 % (0-2) H 10/09/16 06:55 Lymphocytes % (Manual) 6 % (20-50) L 10/11/16 05:00 Monocytes % (Manual) 5 % (0-10) 10/11/16 05:00 Basophils % (Manual) 1 % (0-2) 10/08/16 18:58 Toxic Granulation Present 10/08/16 18:58 Platelet Estimate Normal (NORMAL) 10/11/16 05:00 Large Platelets Present 10/11/16 05:00 Hypochromasia (manual) Slight 10/08/16 18:58 Poikilocytosis (manual Slight 10/11/16 05:00 Anisocytosis (manual) Slight 10/11/16 05:00 PT 15.3 Seconds (9.8-13.1) H 10/17/16 06:15 INR 1.5 (0.9-1.2) H 10/17/16 06:15 APTT 35.5 Seconds (25.6-37.1) 10/17/16 06:15 pO2 59 mm/Hg (30-55) H 10/08/16 19:00 VBG pH 7.43 (7.32-7.43) 10/08/16 19:00 VBG pCO2 28 mmHg (40-60) L 10/08/16 19:00 VBG HCO3 21.3 mmol/L 10/08/16 19:00 VBG Total CO2 19.5 mmol/L (22-28) L 10/08/16 19:00 VBG O2 Sat (Calc) 96.5 % (40-65) H 10/08/16 19:00 VBG Base Excess -4.4 mmol/L (0.0-2.0) L 10/08/16 19:00 VBG Potassium 4.3 mmol/L (3.6-5.2) 10/08/16 19:00 A-a O2 Difference 56.0 mm/Hg 10/08/16 19:00 Sodium 131.0 mmol/L (132-148) L 10/08/16 19:00 Chloride 103.0 mmol/L (98-107) 10/08/16 19:00 Glucose 107 mg/dL (75-110) 10/08/16 19:00 Lactate 1.8 mmol/L (0.7-2.1) 10/08/16 19:00 FiO2 21.0 % 10/08/16 19:00 Sodium 135 mmol/l (132-148) 10/28/16 06:00 Potassium 4.0 MMOL/L (3.6-5.0) 10/28/16 06:00 Chloride 101 mmol/L (98-107) 10/28/16 06:00 Carbon Dioxide 26 mmol/L (22-30) 10/28/16 06:00 Anion Gap 12 (10-20) 10/28/16 06:00 BUN 11 mg/dl (9-20) 10/28/16 06:00 Creatinine 1.2 mg/dL (0.8-1.5) 10/28/16 06:00 Est GFR ( Amer) > 60 10/28/16 06:00 Est GFR (Non-Af Amer) 59 10/28/16 06:00 POC Glucose (mg/dL) 141 mg/dL (65-110) H 10/29/16 05:45 Random Glucose 128 mg/dL (75-110) H 10/28/16 06:00 Lactic Acid 1.6 MMOL/L (0.7-2.1) 10/09/16 19:53 Calcium 9.0 mg/dL (8.4-10.2) 10/28/16 06:00 Phosphorus 3.6 mg/dl (2.5-4.5) 10/08/16 18:58 Magnesium 1.8 MG/DL (1.6-2.3) 10/10/16 17:30 Total Bilirubin 0.6 mg/dl (0.2-1.3) 10/28/16 06:00 Direct Bilirubin 0.4 mg/ml (0.0-0.4) 10/15/16 06:05 AST 27 U/L (17-59) 10/28/16 06:00 ALT 24 U/L (21-72) 10/28/16 06:00 Alkaline Phosphatase 73 U/L (38-126) 10/28/16 06:00 Troponin I 0.3370 ng/mL (0.00-0.120) H* 10/09/16 12:20 Total Protein 7.4 G/DL (6.3-8.2) 10/28/16 06:00 Albumin 3.5 g/dL (3.5-5.0) 10/28/16 06:00 Globulin 3.9 gm/dL (2.2-3.9) 10/28/16 06:00 Albumin/Globulin Ratio 0.9 (1.0-2.1) L 10/28/16 06:00 Amylase 81 U/L (30-110) 10/15/16 06:05 Lipase 174 U/L (23-300) 10/15/16 06:05 CA 19-9 Antigen 87.0 U/mL (0-37) H 10/15/16 06:05 Procalcitonin 5.97 NG/ML (0.19-0.49) H 10/10/16 06:20 Venous Blood Potassium 4.3 mmol/L (3.6-5.2) 10/08/16 19:00 Urine Color Yellow (YELLOW) 10/08/16 19:43 Urine Clarity Cloudy (Clear) 10/08/16 19:43 Urine pH 5.0 (5.0-8.0) 10/08/16 19:43 Ur Specific [place]ado 1.019 (1.003-1.030) 10/08/16 19:43 Urine Protein 30 mg/dL (NEGATIVE) 10/08/16 19:43 Urine Glucose (UA) Neg mg/dL (Normal) 10/08/16 19:43 Urine Ketones Negative mg/dL (NEGATIVE) 10/08/16 19:43 Urine Blood Moderate (NEGATIVE) 10/08/16 19:43 Urine Nitrate Negative (NEGATIVE) 10/08/16 19:43 Urine Bilirubin Negative (NEGATIVE) 10/08/16 19:43 Urine Urobilinogen 0.2-1.0 mg/dL (0.2-1.0) 10/08/16 19:43 Ur Leukocyte Esterase Large Cornelio/uL (Negative) 10/08/16 19:43 Urine RBC (Auto) 21 /hpf (0-3) H 10/08/16 19:43 Urine Microscopic WBC 155 /hpf (0-5) H 10/08/16 19:43 Urine Bacteria Rare (<OCC) 10/08/16 19:43 Ur Random Amylase 67 U/L (32-641) 10/14/16 14:00 Stool Occult Blood Positive (NEGATIVE) H 10/10/16 12:17 C. difficile Ag & Toxin Negative (NEGATIVE) 10/24/16 12:17 - Hospital Course Hospital Course: This 76-year- old man arrived in the emergency room complaining of abdominal distention chills and fever and diarrhea. He arrived in the hospital with a rectal temperature of 101.8F and had significant leukocytosis. His leukocyte count was 33,400. Because of abdominal distention the patient underwent a CT scan of the abdomen which showed evidence of dilated biliary tracts and hydronephrosis on the right side along with evidence of perinephric inflammation. His blood and urine cultures were positive for evidence of Escherichia coli bacteremia and evidence of Escherichia coli in the urine. The patient was seen by an infectious disease specialist and he was started on Zosyn and Cleocin and during the course of his hospital stay Maxipime and Flagyl were also used. At admission his BUN/creatinine where 16 and 1.6 mg percent respectively and eventually lisa to 24 and 17 mg percent. Serum lactate level was 1.8. His stool was negative for C. difficile but positive for occult blood and the patient underwent an endoscopy and colonoscopy by a inspectors and regulatory officers. A large and deep duodenal ulcer was detected. There was no evidence of active bleeding during endoscopy. The patient was treated with intravenous fluids and his BUN/ creatinine eventually came back to normal his electrolytes also came back to normal he remained afebrile though there was a prolonged period of abdominal distention, abdominal discomfort severe anorexia and persistent diarrhea. Subsequent repeated blood and urine cultures were negative. The patient arrived in the hospital with atrial flutter fibrillation and had a persistent tachycardia resulting in a mild rise in his troponin briefly. He never manifested congestive cardiac failure. Increasing doses of metoprolol were used to control his heart rate and eventually also needed admission or digoxin. He continued to show on telemetry persistent atrial flutter fibrillation interspersed with brief periods of sinus rhythm. He remained hemodynamically stable and again never manifested overt congestive cardiac failure. Patient remained afebrile and his leukocytosis resolved. He was followed by infectious disease specialist throughout his hospital stay. Because of a right hydronephrosis he was seen by her urologist and he underwent a cystoscopy during which stenosis of right ureteral with secure lead junction was detected and a stent was inserted. Patient had significant dysuria and he was treated with pyridium. His heart rate was well managed with metoprolol 150 mg twice a day and digoxin 0.25 mg orally daily for an extended period of time. Telemetry was used to monitor his heart rhythm. On October 26 the patient displayed periods of tachycardia with atrial fibrillation that 130 to 140 beats per minute interspersed with periods of sinus arrest with slow juan carlos escape off 30 to 40 bpm. The possibility of tachycardia bradycardia syndrome was entertained and the possibility of the patient needing a pacemaker was discussed with the family. Digoxin was withdrawn. Subsequently the patient displayed moderate degree of tachycardia with atrial fibrillation at 110 to 120 bpm severe bradycardia was not detected. The day prior to his discharge the patient displayed almost a persistent sinus rhythm at moderate heart rates interrupted by occasional premature atrial beats. By this time the patient was afebrile, free of his GI symptoms which consisted of severe anorexia nausea and recurrent bouts of diarrhea. He was hemodynamically stable. The patient was started on oral anticoagulation in the form of Xarelto 20 mg daily because of atrial flutter fibrillation and given a high CHADS score which put him at high risk of systemic embolization. The possibility of bleeding because of duodenal ulcer was discussed with the family and his inspectors and regulatory officers. The patient will have a CBC drawn in 10 days to rule out the possibility of persistent GI bleeding because of anticoagulation. He will also undergo a Holter recording to rule out the possibility of recurring bradycardic rates given a high dose of beta blockade which was given to him for persistent atrial flutter fibrillation. 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 Stable coronary artery disease and status post coronary bypass graft surgery. The patient will return to see me in 3 weeks. Discharge Exam - Head Exam Head Exam: ATRAUMATIC, NORMAL INSPECTION, NORMOCEPHALIC Discharge Plan - Discharge Medications Prescriptions: Metoprolol Tartrate [Lopressor] 150 mg PO Q12 #90 tab Pantoprazole [Protonix EC Tab] 40 mg PO BIDAC #60 ect Phenazopyridine [Pyridium] 100 mg PO TID #20 tab - Follow Up Plan Condition: FAIR Disposition: HOME/ ROUTINE Instructions: Atrial Flutter (DC), Cystoscopy (DC) Referrals: Mercy TAYLOR,MD Maurice [Medical Doctor] - 4 Weeks (Needs repeat EGD) Guillermo Onofre MD [Staff Provider] -
== END 2016-10-29 11:00 | disposition home or self-care (01) | DRG 872 ==
LOC: H.ER 17:56 → H.ERHOLD 20:51 → H.TEL 10-09 00:27
PROVIDERS: ADMIT Internal Medicine Cardiovascular Disease; ATTEND Internal Medicine Cardiovascular Disease
PROC: 0FB98ZX Excision of Common Bile Duct, Via Natural or Artificial Opening Endoscopic, Diagnostic (ICD-10-PCS; 2016-10-17)
PROC: 0T768DZ Dilation of Right Ureter with Intraluminal Device, Via Natural or Artificial Opening Endoscopic (ICD-10-PCS; 2016-10-23)
PROC: BT1DZZZ Fluoroscopy of Right Kidney, Ureter and Bladder (ICD-10-PCS; principal; 2016-10-23 18:30)
DX: A41.9 Sepsis, unspecified organism (principal); N17.9 Acute kidney failure, unspecified; N39.0 Urinary tract infection, site not specified; I48.1 Persistent atrial fibrillation; E87.1 Hypo-osmolality and hyponatremia; I48.92 Unspecified atrial flutter; I49.5 Sick sinus syndrome; N13.30 Unspecified hydronephrosis; Q62.12 Congenital occlusion of ureterovesical orifice; K22.10 Ulcer of esophagus without bleeding; B96.20 Unspecified Escherichia coli [E. coli] as the cause of diseases classified elsewhere; K26.9 Duodenal ulcer, unspecified as acute or chronic, without hemorrhage or perforation; K25.9 Gastric ulcer, unspecified as acute or chronic, without hemorrhage or perforation; K59.00 Constipation, unspecified; I45.10 Unspecified right bundle-branch block; I25.10 Atherosclerotic heart disease of native coronary artery without angina pectoris; I10 Essential (primary) hypertension; J44.9 Chronic obstructive pulmonary disease, unspecified; E78.5 Hyperlipidemia, unspecified; E11.9 Type 2 diabetes mellitus without complications; I25.2 Old myocardial infarction; F40.240 Claustrophobia; F17.210 Nicotine dependence, cigarettes, uncomplicated; Z95.1 Presence of aortocoronary bypass graft; Z88.1 Allergy status to other antibiotic agents; Z79.01 Long term (current) use of anticoagulants; Z79.82 Long term (current) use of aspirin; Z87.01 Personal history of pneumonia (recurrent); Z87.440 Personal history of urinary (tract) infections

== ENCOUNTER 2016-12-01 18:07 | Emergency (ER) | payer MEDICARE ==
[2016-12-01 18:08] VITALS: PULSE 106; BMI 23.8
[2016-12-01 18:21] VITALS: PULSE 60; RESP 18; TEMP 98.2; O2SAT 100
--- NOTE | 2016-12-01 18:41 | ED PDOC ---
HPI: SOB/CHF/COPD Time Seen by Provider: 12/01/16 18:25 Chief Complaint (Nursing): Shortness Of Breath Chief Complaint (Provider): SOB, dizziness History Per: Family (daughter at bedside is translating for patient) Additional Complaint(s): 76 year old male presents to ED with shortness of breath, dizziness and dyspnea on exertion that started 2 days ago and worsened today. Daughter states she was with patient today and every time he took a few steps while walking, he was out of breath. Daughter also states that when he became out of breath he also became very dizzy and felt as if he was going to black out. This sensation stopped when patient stopped exerting. No associated headache or vision changes. Patient denies any chest pain. Daughter states that she heard audible wheezing from patient earlier today. Patient has also been complaining of abdominal distention today and swelling in both ankles. Daughter states that patient was started last week on 20 mg of lasix daily. Daughter did notice that today after he took his morning dose of lasix, swelling in legs did improve. Past Medical History Reviewed: Historical Data, Nursing Documentation, Vital Signs Vital Signs: Last Vital Signs Temp 98.2 F 12/01/16 18:19 Pulse 60 12/01/16 18:19 Resp 18 12/01/16 18:19 BP 125/58 L 12/01/16 18:19 Pulse Ox 100 12/01/16 19:03 - Medical History PMH: Atrial Fibrillation, CAD, Cardia Arrhythmia (A FLUTTER; A FIB.), COPD, Diabetes, HTN, Hypercholesterolemia, Hyperlipidemia - Surgical History Surgical History: CABG Other surgeries: knee surgery, ureteral stent - Family History Family History: States: No Known Family Hx - Living Arrangements Living Arrangements: With Family - Social History Current smoker - smoking cessation education provided: No Ex-Smoker (has not smoked in the last 12 months): Yes (quit last year) Alcohol: None Drugs: Denies - Home Medications Home Medications: Ambulatory Orders Medication Instructions Recorded Atorvastatin [Lipitor] 10 mg PO DAILY 10/08/16 Cholecalciferol (Vitamin D3) 400 units PO DAILY 10/08/16 [Vitamin D-400] Enalapril Maleate [Vasotec] 5 mg PO DAILY 10/08/16 Glimepiride [amaRYL] 2 mg PO DAILY 10/08/16 Multivitamin [Multivitamins] 1 tab PO DAILY 10/08/16 Metoprolol Tartrate [Lopressor] 150 mg PO Q12 #90 tab 10/29/16 Pantoprazole [Protonix EC Tab] 40 mg PO BIDAC #60 ect 10/29/16 Phenazopyridine [Pyridium] 100 mg PO TID #20 tab 10/29/16 - Allergies Allergies/Adverse Reactions: Allergies Allergy/AdvReac Type Severity Reaction Status Date / Time azithromycin Allergy ITCHING Verified 10/17/16 12:29 moxifloxacin [From Avelox] Allergy ITCHING Verified 10/17/16 12:29 Wells Criteria for PE - Wells Criteria for Pulmonary Embolism Clinical Signs and Symptoms of DVT: No P.E is #1 Diagnosis, or Equally Likely: No Heart Rate >100: No Immobilization at least 3 days;Surgery previous 4 weeks: No Previous, objectively diagnosed PE or DVT: No Hemoptysis: No Malignancy w/treatment within 6 months, or palliative: No Total Score: 0 Review of Systems ROS Statement: Except As Marked, All Systems Reviewed And Found Negative Constitutional: Negative for: Fever, Chills Cardiovascular: Positive for: Edema. Negative for: Chest Pain Respiratory: Positive for: Shortness of Breath, SOB with Exertion, Wheezing. Negative for: Hemoptysis, Sputum Gastrointestinal: Positive for: Abdominal Pain (bloating). Negative for: Nausea , Vomiting Genitourinary Male: Negative for: Dysuria Musculoskeletal: Positive for: Other (swelling to legs bilaterally) Neurological: Positive for: Dizziness. Negative for: Weakness, Numbness, Incoordination, Change in Speech, Confusion, Seizures, Altered Mental Status, Headache Physical Exam - Reviewed Nursing Documentation Reviewed: Yes Vital Signs Reviewed: Yes - Physical Exam Appears: Positive for: Well, Non-toxic, No Acute Distress Head Exam: Positive for: ATRAUMATIC Skin: Negative for: Rash Eye Exam: Positive for: Normal appearance Cardiovascular/Chest: Positive for: Regular Rate, Rhythm Respiratory: Positive for: Decreased Breath Sounds. Negative for: Wheezing, Respiratory Distress Gastrointestinal/Abdominal: Positive for: Soft, Tenderness (diffusely), Distended. Negative for: Guarding, Rebound Back: Negative for: L CVA Tenderness, R CVA Tenderness Extremity: Positive for: Normal ROM, Other (slight swelling to bilateral lower extremities) Neurologic/Psych: Positive for: Alert, Oriented. Negative for: Aphasia, Facial Droop - ECG Interpretation Of ECG: SR 90 bpm with PVC's and PAC's. RBBB, reviewed by PA and ED attending O2 Sat by Pulse Oximetry: 100 Pulse Ox Interpretation: Normal Medical Decision Making Medical Decision Makin76 year old with shortness of breath and dizziness Plan: EKG CXR CBC CMP Trop PT/PTT BNP IV lasix 20 mg Disposition - Clinical Impression Clinical Impression: Shortness of breath - Patient ED Disposition Is Patient to be Admitted: Transfer of Care - Disposition Disposition: Transfer of Care Disposition Time: 19:30 Condition: STABLE Forms: [employer] (Kittitian) Patient Signed Over To: Lili Collins Handoff Comments: Signed out to CULLEN Collins pending diagnostic testing results and final disposition
[2016-12-01 19:48] VITALS: BP 124/58
[2016-12-01 20:10] LABS: BASO % 0.6 % (0.0-2.0); EOS # 0.2 K/uL (0.0-0.7); EOS % 2.3 % (0.0-4.0); HEMATOCRIT 30.3 % (35.0-51.0); LYMPH # 1.5 K/uL (1.0-4.3); LYMPH % 20.6 % (20.0-40.0); MEAN CELL VOLUME 91.2 fl (80.0-94.0); MEAN CORPUSCULAR HEMOGLOBIN 28.2 pg (27.0-31.0); MEAN PLATELET VOLUME 7.3 fl (7.2-11.7); MONO # 0.6 K/uL (0.0-0.8); MONO % 8.2 % (0.0-10.0); NEUT # 4.9 K/uL (1.8-7.0); NEUT % 68.3 % (50.0-75.0); NRBC % 0.1 % (0.0-0.0); RED CELL DISTRIBUTION WIDTH 18.8 % (11.5-14.5); WHITE BLOOD COUNT 7.1 K/uL (4.8-10.8)
[2016-12-01 20:18] LABS: PARTIAL THROMBOPLASTIN TIME 40.9 Seconds (25.6-37.1)
[2016-12-01 20:20] LABS: ALB/GLOB RATIO 1.1 (1.0-2.1); ALKALINE PHOSPHATASE 96 U/L (38-126); ALT/SGPT 36 U/L (21-72); AST/SGOT 38 U/L (17-59); BILIRUBIN,TOTAL 0.4 mg/dl (0.2-1.3); BLOOD UREA NITROGEN 13 mg/dl (9-20); CALCIUM 8.7 mg/dL (8.4-10.2); CARBON DIOXIDE 22 mmol/L (22-30); CHLORIDE 100 mmol/L (98-107); GFR AFRICAN-AMERICAN > 60; GLUCOSE,RANDOM 151 mg/dL (75-110); SODIUM 135 mmol/l (132-148); TOTAL PROTEIN 7.6 G/DL (6.3-8.2)
[2016-12-01 20:21] LABS: POTASSIUM 3.5 MMOL/L (3.6-5.0)
[2016-12-01 21:06] LABS: RBC URINE 25 /hpf (0-3); URINE BACTERIA RARE (<OCC); URINE BILIRUBIN NEGATIVE (NEGATIVE); URINE BLOOD SMALL (NEGATIVE); URINE COLOR YELLOW (YELLOW); URINE GLUCOSE (UA) NEG (Normal); URINE KETONE NEGATIVE (NEGATIVE); URINE LEUKOCYTE ESTERASE LARGE Leu/uL (Negative); URINE PROTEIN 30 mg/dL (NEGATIVE); URINE UROBILINOGEN 0.2-1.0 mg/dL (0.2-1.0); WBC URINE 306 /hpf (0-5)
--- NOTE | 2016-12-01 22:39 | ED PDOC ---
- Laboratory Results Result Diagrams: 12/01/16 20:00 12/01/16 20:00 - ECG O2 Sat by Pulse Oximetry: 100 Pulse Ox Interpretation: Normal Medical Decision Making Medical Decision Making: Pt reports feeling better. Discussed with Dr. Barkley who states patient can follow-up in the office and continue lasix at home. Disposition - Clinical Impression Clinical Impression: Shortness of breath - POA Present On Arrival: None - Disposition Disposition: Routine/Home Disposition Time: 22:38 Condition: GOOD Additional Instructions: Continue previous prescribed lasix. Instructions: Heart Failure (ED) Forms: [employer] (Kyrgyz)
--- NOTE | 2016-12-02 09:07 | RAD ---
HISTORY: SOB COMPARISON: Chest x-ray performed 11/27/16 TECHNIQUE: Chest, one view. FINDINGS: LUNGS: Persistent pulmonary venous congestion. Left basilar atelectasis. PLEURA: Blunting of the costophrenic angles consistent with small pleural effusions. No definite pneumothorax . CARDIOVASCULAR: Median sternotomy wires. Enlargement of the cardiomediastinal silhouette. OSSEOUS STRUCTURES: Osseous demineralization. Degenerative changes. VISUALIZED UPPER ABDOMEN: Unremarkable. OTHER FINDINGS: None. IMPRESSION: Persistent pulmonary venous congestion. Left basilar atelectasis. Small bilateral pleural effusions. Enlargement of the cardiomediastinal silhouette.
--- NOTE | 2016-12-02 19:50 | CARD ---
APPROVED REPORT EKG Measurement Heart [id number] <Conclusion> Sinus rhythm with occasional premature ventricular complexes and premature atrial complexes Right bundle branch block Septal infarct, age undetermined Abnormal ECG
== END 2016-12-01 23:36 | disposition home or self-care (01) ==
LOC: H.ER 18:07
DX: R06.02 Shortness of breath (principal); E11.9 Type 2 diabetes mellitus without complications; I10 Essential (primary) hypertension
CPT/HCPCS: 71010; 80053; 81003; 82948; 83880; 84484; 85025; 85610; 85730; 93005; 96374; 99284; J1940

== ENCOUNTER 2017-04-23 07:10 | Day surgery (SDC) | payer MEDICARE ==
[2017-04-23] MEDS ORDERED: Lactated Ringer's 1,000 ML IV ONE (07:31)
[2017-04-23] MEDS ORDERED: Lidocaine PF 2% (5 ml) Inj (For Cardiac Arrhy) IV ONE (08:26)
[2017-04-23] MEDS ORDERED: Etomidate 20 mg/10ml Inj IV ONE (08:26)
[2017-04-23] MEDS ORDERED: Propofol 10 mg/ml Inj (20 ML) ONE (08:26)
[2017-04-23 08:40] VITALS: TEMP 96.8
[2017-04-23 09:08] VITALS: BP 112/58; PULSE 72; RESP 22; O2SAT 100
== END 2017-04-23 09:20 | disposition home or self-care (01) ==
LOC: H.ENDO 07:10
PROVIDERS: ATTEND Internal Medicine Gastroenterology
DX: I48.91 Unspecified atrial fibrillation (principal); I25.10 Atherosclerotic heart disease of native coronary artery without angina pectoris; J44.9 Chronic obstructive pulmonary disease, unspecified; K27.7 Chronic peptic ulcer, site unspecified, without hemorrhage or perforation; K26.7 Chronic duodenal ulcer without hemorrhage or perforation; K29.50 Unspecified chronic gastritis without bleeding
CPT/HCPCS: 43239; 82948; 88305; J2001; J2704; J7120

== ENCOUNTER 2018-03-03 11:09 | Emergency (ER) | payer MEDICARE ==
[2018-03-03 11:10] VITALS: PULSE 106; BMI 23.8
[2018-03-03 12:09] VITALS: O2SAT 98
--- NOTE | 2018-03-03 12:49 | ED PDOC ---
Lower Extremity Pain/Injury Time Seen by Provider: 03/03/18 12:19 Chief Complaint (Nursing): Lower Extremity Problem/Injury Chief Complaint (Provider): Right thigh injury History Per: Patient History/Exam Limitations: no limitations Onset/Duration Of Symptoms: Hrs Current Symptoms Are (Timing): Still Present Additional Complaint(s): 77 year old male presents to the ED with daughter after falling earlier today while getting into the tub. Patient reports he landed on the tub ledge straddling in a sitting position. Patient reports he did not fall to the floor and denies hitting his head. He states he landed on the back of his right thigh but has been ambulating since with mild pain. Of note, patient had a previous injury to that leg 60 plus years ago which never healed well and has had a deformity since. PMD: none provided Past Medical History Reviewed: Historical Data, Nursing Documentation, Vital Signs Vital Signs: Last Vital Signs Temp 97 F L 03/03/18 12:06 Pulse 49 L 03/03/18 12:06 Resp 20 03/03/18 12:06 BP 122/54 L 03/03/18 12:06 Pulse Ox 98 03/03/18 12:06 - Medical History PMH: Atrial Fibrillation, Bronchitis, CAD, Cardia Arrhythmia (A FIB), COPD, Diabetes, HTN, Hypercholesterolemia, Hyperlipidemia, Pneumonia Denies: Colonic Polyps, Fractures, Chronic Kidney Disease, TIA - Surgical History Surgical History: CABG, Endoscopy - Family History Family History: States: Unknown Family Hx - Immunization History Hx Tetanus Toxoid Vaccination: No - Home Medications Home Medications: Ambulatory Orders Medication Instructions Recorded RX: Atorvastatin [Lipitor] 10 mg PO DAILY 10/08/16 RX: Cholecalciferol (Vitamin D3) 400 units PO DAILY 10/08/16 [Vitamin D-400] RX: Enalapril Maleate [Vasotec] 5 mg PO DAILY 10/08/16 RX: Glimepiride [amaRYL] 2 mg PO DAILY 10/08/16 RX: Multivitamin [Multivitamins] 1 tab PO DAILY 10/08/16 RX: Metoprolol Tartrate [Lopressor] 150 mg PO Q12 #90 tab 10/29/16 RX: Pantoprazole [Protonix EC Tab] 40 mg PO BIDAC #60 ect 10/29/16 Furosemide [Lasix] 20 mg PO DAILY 04/23/17 - Allergies Allergies/Adverse Reactions: Allergies Allergy/AdvReac Type Severity Reaction Status Date / Time azithromycin Allergy ITCHING Verified 03/03/18 12:05 moxifloxacin [From Avelox] Allergy ITCHING Verified 03/03/18 12:05 Review of Systems ROS Statement: Except As Marked, All Systems Reviewed And Found Negative Musculoskeletal: Positive for: Other (left thigh injury; (-) head injury) Physical Exam - Reviewed Nursing Documentation Reviewed: Yes Vital Signs Reviewed: Yes - Physical Exam Appears: Positive for: Non-toxic, No Acute Distress Head Exam: Positive for: ATRAUMATIC, NORMOCEPHALIC Skin: Positive for: Normal Color, Warm, Dry Eye Exam: Positive for: Normal appearance Neck: Positive for: Normal, Painless ROM Cardiovascular/Chest: Positive for: Regular Rate, Rhythm, Chest Non Tender Respiratory: Positive for: Normal Breath Sounds Pulses-Femoral (L): 2+ Pulses-Femoral (R): 2+ Gastrointestinal/Abdominal: Positive for: Normal Exam Back: Positive for: Normal Inspection Extremity: Positive for: Normal ROM ((+) Full ROM of hip and knees), Tenderness ((+) mild tenderness to the mid femur in the lateral and posterior aspect; (-) hip tenderness; (-) knee tenderness), Other ((+) sensation intact, (-) ecchymosis) Neurologic/Psych: Positive for: Alert, Oriented. 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 X-rays interpreted by me. HR noted to be 50, pt. denies any cp, lightheadeness. He confirms he slipped in water on BR floor, causing fall. EKG obtained. EKG: SB at 49 bpm, RBBB, ST depression V4-6, no old for comparison. EKG as above, pt. denies any cp. Call placed to pt.'s pediatric cardiologist Dr. Onofre. Case d/w covering cardio Dr. Kolb, ekg discussed. No further work up as pt. is asymptomatic. Will hold metoprolol tonight and tomorrow given bradycardia and pt. can follow in office. Pt. and daughter comfortable with plan. Pt. has cane at home and will use for leg pain. Scribe Attestation: Documented by Jad Angel acting as a scribe for Becka BERMAN. Provider Scribe Attestation: All medical record entries made by the Scribe were at my direction and personally dictated by me. I have reviewed the chart and agree that the record accurately reflects my personal performance of the history, physical exam, medical decision making, and the department course for this patient. I have also personally directed, reviewed, and agree with the discharge instructions and disposition. Disposition - Clinical Impression Clinical Impression: Hip pain - Patient ED Disposition Is Patient to be Admitted: No - Disposition Referrals: Bill Hoover MD [Medical Doctor] - Disposition: Routine/Home Disposition Time: 16:26 Condition: STABLE Instructions: Hip Pain (DC) Forms: [employer] (Yemeni)
--- NOTE | 2018-03-03 14:16 | RAD ---
Date of service: 03/03/2018 PROCEDURE: Right femur HISTORY: trauma COMPARISON: None TECHNIQUE: Standard protocol for this study/examination. FINDINGS: There are no osseous abnormalities to suggest fracture. The pelvic ring is intact. Preserved femoral-acetabular relationship. Negative study for protrusio, subluxation or dislocation. Degenerative changes: None. Posttraumatic changes right knee fusion IMPRESSION: No acute findings related to/ accounting for the clinical presentation.
[2018-03-03 15:08] VITALS: BP 119/82; PULSE 50; RESP 18; TEMP 97.9
--- NOTE | 2018-03-03 16:48 | CARD ---
APPROVED REPORT Date of service: 03/03/2018 EKG Measurement Heart [id number] <Conclusion> Sinus bradycardia Right bundle branch block ST depression, consider lateral ischemia Abnormal ECG
== END 2018-03-03 15:00 | disposition home or self-care (01) ==
LOC: H.ER 11:09
DX: E11.9 Type 2 diabetes mellitus without complications (principal); I10 Essential (primary) hypertension; J44.9 Chronic obstructive pulmonary disease, unspecified; Z79.84 Long term (current) use of oral hypoglycemic drugs; Z95.1 Presence of aortocoronary bypass graft; W18.2XXA Fall in (into) shower or empty bathtub, initial encounter; Y93.E1 Activity, personal bathing and showering

== ENCOUNTER 2018-05-14 06:32 | Inpatient (IN) | payer MEDICARE ==
[2018-04-09 12:06] VITALS: BMI 23.0
[2018-05-14] MEDS ORDERED: Lidocaine 1% Inj (20ml) ONE (09:00)
[2018-05-14] MEDS ORDERED: Lactated Ringer's 1,000 ML IV ONE (09:13)
[2018-05-14] MEDS ORDERED: Propofol 10 mg/ml Inj (20 ML) ONE (09:13)
[2018-05-14] MEDS ORDERED: Midazolam 2 MG/2 ML VIAL ONE ×2 (09:13→09:47)
[2018-05-14] MEDS ORDERED: Lidocaine 1% Inj (20ml) INFIL ONE ×2 (09:38)
[2018-05-14] MEDS ORDERED: Oxycodone/Acetaminophen 5/325 mg Tab PO PRN (10:46)
--- NOTE | 2018-05-14 10:48 | CP.SDSHP ---
Same Day Surgery H & P - History Proposed Procedure: single chamber pacemaker insertion - Previous Medical/Surgical History Cardiac: Hypertension, ASHD/CAD, Previous [place], Other (sick sinus syndrome) Pain: 0. No Pain Previous Surgical History: CABG - Allergies Allergies: Allergies azithromycin Allergy (Verified 04/09/18 11:37) ITCHING moxifloxacin [From Avelox] Allergy (Verified 04/09/18 11:37) ITCHING intravenous - Physical Exam General Appearance: NAD Vital Signs: Vital Signs 05/14/18 05/14/18 05/14/18 07:34 07:46 08:44 Temperature 97.6 F 97.6 F Pulse Rate 61 61 61 Respiratory 18 18 Rate Blood Pressure 132/67 132/67 O2 Sat by Pulse 100 100 Oximetry Mental Status: Alert & Oriented x3 Neuro: WNL Heart: Other (bradycardic) Lungs: WNL GI: WNL - Impression Impression: 78 M who presents for single chamber pacemaker insertion Pt. Evaluated Today:Candidate for Anesthesia & Procedure: Yes - Date & Time Date: 05/14/18 Time: 08:00 Short Stay Discharge - Short Stay Discharge Admitting Diagnosis/Reason for Visit: I49.5 Disposition: HOME/ ROUTINE Medications: oxyCODONE/Acetaminophen [Percocet 5/325 mg Tab] 1 tab PO Q6 PRN #12 tab PRN Reason: Pain, Moderate (4-7) Referrals: Marlyn Ta DO [Primary Care Provider] - Guillermo Onofre MD [Staff Provider] - Jon Berrios MD [Staff Provider] - Additional Instructions (Diet, Activity): follow up with Dr. Berrios and Dr. Onofre within 1-2 weeks Take percocet as prescribed for pain Call Dr. Onofre's office for any issues Progress Note/Discharge Note with Instructions: 78 M s/p single chamber pacemaker insertion Patient stable for discharge when SDS criteria met
--- NOTE | 2018-05-14 10:50 | PCM.SURG1 ---
Surgeon's Initial Post Op Note - Surgeon's Notes Surgeon: Dr. Kingston Paredes Abrasive Mixer Helper: Kristy PGY2 Type of Anesthesia: IV Sedation, Local Anesthesia Administered By: Dr. Hubbard Pre-Operative Diagnosis: Sick sinus syndrome Operative Findings: pacemaker with appropriate position in right ventricular wall, appropriate electrical response Post-Operative Diagnosis: Sick sinus syndrome Operation Performed: Single chamber pacemaker insertion Specimen/Specimens Removed: None Estimated Blood Loss: EBL {In ML}: 10 Blood Products Given: N/A Drains Used: No Drains Post-Op Condition: Good Date of Surgery/Procedure: 05/14/18 Time of Surgery/Procedure: 10:49
[2018-05-14] MEDS ORDERED: Lactated Ringer's 1,000 ML IV SCH (11:00)
--- NOTE | 2018-05-14 11:01 | CP.PCM.PN ---
Subjective - Date & Time of Evaluation Date of Evaluation: 05/14/18 Time of Evaluation: 10:40 - Subjective Subjective: The patient was seen in the morning in the same day surgery suite and subsequently in the OR. His vital signs were stable. Pacemaker insertion: Under Xylocaine anesthesia the left subclavian vein was punctured and under fluoroscopy observation a stylet was introduced into the superior vena cava. An introducer which was fed over this dilated and a ventricular pacing lead was introduced through the introducer into the right atrium and over fluoroscopic examination passed further into right ventricular outflow tract. The lead was gradually pulled back and a suitable location was located where pacing and sensing parameters were satisfactory. The R wave was 8-9 V in height and the pacing threshold was 0.3 mV. The lead was secured in place with a screw and was then attached to a VVI pacemaker which was implanted in the pocket created at the beginning of the procedure in the left infraclavicular area. The patient tolerated the procedure well and was sent to the post anesthesia room. Objective - Vital Signs/Intake and Output Vital Signs (last 24 hours): Temp Pulse Resp BP Pulse Ox 97.6 F 61 18 132/67 100 05/14/18 08:44 05/14/18 08:44 05/14/18 08:44 05/14/18 08:44 05/14/18 08:44 Intake and Output: 05/14/18 05/14/18 06:59 18:59 Intake Total 100 Balance 100 - Medications Medications: Current Medications Lactated Ringer's (Lactated Ringer's) 1,000 mls @ 125 mls/hr IV .Q8H ANTONY Morphine Sulfate (Morphine) 1 mg IVP Q15M PRN PRN Reason: Pain, moderate (4-7) Oxycodone/Acetaminophen (Percocet 5/325 Mg Tab) 1 tab PO Q6 PRN PRN Reason: Pain, moderate (4-7) Stop: 05/17/18 10:47
--- NOTE | 2018-05-14 15:41 | RAD ---
Date of service: 05/14/2018 HISTORY: Status post pacemaker COMPARISON: Comparison made with prior chest radiograph dated 05/01/2018 FINDINGS: LUNGS: Mild pulmonary venous congestion with more confluent opacity in the right upper lobe bordering the minor fissure. PLEURA: No significant pleural effusion identified, no pneumothorax apparent. CARDIOVASCULAR: Interval placement single lead pacemaker/defibrillator. Heart remains mildly enlarged. Sternotomy wires and CABG clips again noted. Mild aortic atherosclerotic calcification present. Mild pulmonary venous congestive changes. OSSEOUS STRUCTURES: No significant abnormalities. VISUALIZED UPPER ABDOMEN: Normal. OTHER FINDINGS: None. IMPRESSION: Mild pulmonary venous congestion with more confluent opacity in the right upper lobe bordering the minor fissure. Interval placement single lead pacemaker
--- NOTE | 2018-05-14 16:16 | RAD ---
Date of service: 05/14/2018 PROCEDURE: Intraoperative Fluoroscopy. HISTORY: PACEMAKER FINDINGS: Fluoroscopic assistance was provided. Fluoroscopy time = 455.8 sec. Radiation dose = 147.51 mGy. Please refer to the operative report from [facility].
--- NOTE | 2018-05-14 17:32 | CARD ---
APPROVED REPORT Date of service: 05/14/2018 EKG Measurement Heart [id number] P35 [id number] <Conclusion> Demand Ventricular-paced rhythm Occasional premature ventricular complexes
[2018-05-15 06:45] LABS: HEMOGLOBIN 12.2 g/dL (12.0-18.0); MEAN CORPUSCULAR HEMOGLOBIN 28.3 pg (27.0-31.0); MEAN CORPUSCULAR HGB CONC 32.5 g/dL (33.0-37.0); RBC 4.32 Mil/uL (4.40-5.90); RED CELL DISTRIBUTION WIDTH 15.5 % (11.5-14.5)
--- NOTE | 2018-05-15 06:48 | OP ---
PROCEDURE DATE: 05/14/2018 PREOPERATIVE DIAGNOSIS: Sick sinus syndrome. POSTOPERATIVE DIAGNOSIS: Sick sinus syndrome. PROCEDURE: Insertion of a single-chamber pacemaker under fluoroscopic guidance. SURGEON: Jon Berrios MD DIETETIC TECHNICIAN REGISTERED: Guillermo Onofre MD SECOND DIETETIC TECHNICIAN REGISTERED:Kristy MYERS. ANESTHESIOLOGIST: Airam Hubbard MD TYPE OF ANESTHESIA: Local with sedation. IV FLUIDS: Crystalloid. ESTIMATED BLOOD LOSS: 5 mL. INTRAOPERATIVE FINDINGS: Satisfactory capturing of the pacemaker after placement of the guidewire. SPECIMEN: None. BRIEF HISTORY: Mr. Jackson is a very pleasant 78-year-old gentleman who presented to Dr. Onofre from Cardiology with sick sinus syndrome and was scheduled for elective pacemaker insertion. All the risks and benefits of the procedure were explained to the patient and with the patient having a full understanding of all the risks and benefits involved, informed consent was obtained and the patient was taken to the operating room for above-stated procedure. DESCRIPTION OF PROCEDURE: The patient was brought into the operating room and placed supine on the operating room table. Bilateral Flowtron boots were applied to the patient's lower extremities. After successful IV sedation, shoulder roll was inserted on the patient's shoulders, and subsequent to that, the patient's neck and upper chest were prepped with ChloraPrep stick and draped in a standard surgical fashion. Prior to the beginning of the procedure, the patient received prophylactic Ancef antibiotic. Time-out was called in the room and everyone in the room were in agreement. Using 1% lidocaine anesthetic, the area on the left side of the chest wall slightly below the clavicle was infiltrated with about 12 mL of local anaesthetic. Subsequent to that, using the 15-blade scalpel knife, approximately 3-cm incision was made in a transverse fashion approximately two fingerbreadths below the clavicle and subsequent to that dissection was carried down with electrocautery until the pectoral fascia was encountered. Subsequent to that, the pockets for the pacemaker battery was made bluntly with finger dissection, and once this was accomplished, hemostasis was achieved with electrocautery, and at this point in time, needle attached to the syringe was used in order to cannulate left subclavian vein. Subsequent to that, once there was flush of blood into the syringe, a guidewire was inserted into the patient. At this point in time, fluoroscopic C-arm was brought into the operative field and the Fluorospot was taken. At this point in time, it appeared that the guidewire was gone into the superior vena cava, and at this point in time, the needle was retracted and a sheath was introduced into the patient. Once again another fluoroscopic shot was taken, and at this point in time, Dr. Onofre took over the case and his part of the case will be dictated separately. After successful placement and screwing of the pacemaker lead into the right ventricle, I took over the case. The pacemaker wire was secured in place with one 2-0 silk suture, and at this point in time, the wire was attached to the battery and was screwed in. At this point in time, the battery was placed into the prior made pocket with the wire tucked behind the pacemaker battery. At this point in time, the wound was closed in two layers, the first layer was closed with 3-0 Vicryl suture in a deep dermal layer as a running stitch and subsequent to that skin was approximated with 4-0 Monocryl suture in a subcuticular fashion. Once this was accomplished, the patient's upper chest was washed and dried and Dermabond was applied to the site of the incision. The patient was successfully transferred to the stretcher and taken to the recovery room in a stable condition. At the end of the procedure, all instrument counts, needles, and sponges were correct. Jon Berrios MD
[2018-05-15 06:54] LABS: WHITE BLOOD COUNT 14.1 K/uL (4.8-10.8)
[2018-05-15 08:25] VITALS: RESP 18
[2018-05-15] MEDS ORDERED: CYANOCOBALAMIN PO SCH (09:00)
[2018-05-15] MEDS ORDERED: Latanoprost 0.005% Opht SOUTION OU SCH (09:00)
[2018-05-15] MEDS ORDERED: Cholecalciferol 400 Intl Units Tab PO SCH (09:00)
[2018-05-15] MEDS ORDERED: GlipiZIDE 5 mg SR Tab PO SCH (09:00)
[2018-05-15] MEDS ORDERED: [UNRECOGNIZED DRUG - OTHER] PO SCH (09:00)
[2018-05-15] MEDS ORDERED: Multivitamin With Minerals Tab PO SCH (09:00)
--- NOTE | 2018-05-15 10:23 | CP.PCM.PN ---
Subjective - Date & Time of Evaluation Date of Evaluation: 05/15/18 Time of Evaluation: 09:00 - Subjective Subjective: The patient was seen in bed. He was resting comfortably and had minimal surgical discomfort. The telemetry shows intermittent bouts of atrial fibrillation with a heart rate going as high as 130 bpm yesterday After he was given an additional dose of metoprolol his heart rate is mostly below 100 bpm. The pacemaker behaves normally in a VVI mode. His blood pressure was 126/80 mmHg. His jugular venous pressure was not elevated and there was no edema over his lower extremity. The heart sounds were normal. Lab data shows a creatinine of 1.8 mg percent which is an improvement over his lab tests of one weeks back. The surgical wound looks clean. The patient will be allowed to return home and the daughter has been instructed to resume Xarelto in 3 days. His dose of metoprolol has also been increased from 50 mg twice a day to 150 mg twice a day. The patient will return to see me in my office in 2 weeks. Objective - Vital Signs/Intake and Output Vital Signs (last 24 hours): Temp Pulse Resp BP Pulse Ox 97.8 F 66 18 113/54 L 98 05/15/18 08:25 05/15/18 08:25 05/15/18 08:25 05/15/18 09:35 05/15/18 08:25 - Medications Medications: Current Medications Acetaminophen (Tylenol 325mg Tab) 650 mg PO Q6H PRN PRN Reason: Pain, moderate (4-7) Last Admin: 05/14/18 18:48 Dose: 650 mg Atorvastatin Calcium (Lipitor) 10 mg PO DAILY [facility] Last Admin: 05/15/18 09:35 Dose: 10 mg Enalapril Maleate (Vasotec) 5 mg PO DAILY [facility] Last Admin: 05/15/18 09:36 Dose: 5 mg Furosemide (Lasix) 20 mg PO DAILY [facility] Last Admin: 05/15/18 09:35 Dose: 20 mg Glipizide (Glucotrol Xl) 5 mg PO DAILY [facility] Last Admin: 05/15/18 09:35 Dose: 5 mg Home Med (Cyanocobalamin/Salcaprozat Sod [Eligen B12 Tablet]) 1 tab PO DAILY [facility] Latanoprost (Xalatan Opht) 1 drop OU DAILY [facility] Last Admin: 05/15/18 09:36 Dose: 1 drop Metoprolol Tartrate (Lopressor) 100 mg PO Q12 [facility] Last Admin: 05/15/18 09:35 Dose: 100 mg Multivitamins/Minerals (Therapeutic-M Tab) 1 tab PO DAILY [facility] Last Admin: 05/15/18 09:36 Dose: 1 tab Vitamin D (Vitamin D 400 Intl Units Tab) 400 intlu PO DAILY [facility] Last Admin: 05/15/18 09:36 Dose: 400 intlu - Labs Labs: 05/15/18 05:55 05/15/18 05:55
[2018-05-15 12:14] VITALS: BP 91/57; PULSE 68; TEMP 97.2; O2SAT 99
== END 2018-05-15 12:50 | disposition home or self-care (01) | DRG 244 ==
LOC: H.OPSURG 06:32 → H.TEL 11:07
PROVIDERS: ADMIT Internal Medicine Cardiovascular Disease; ATTEND Internal Medicine Cardiovascular Disease
PROC: 02HK3JZ Insertion of Pacemaker Lead into Right Ventricle, Percutaneous Approach (ICD-10-PCS; 2018-05-14)
PROC: 0JH604Z Insertion of Pacemaker, Single Chamber into Chest Subcutaneous Tissue and Fascia, Open Approach (ICD-10-PCS; principal; 2018-05-14 08:45)
DX: I49.5 Sick sinus syndrome (principal); I25.10 Atherosclerotic heart disease of native coronary artery without angina pectoris; I48.91 Unspecified atrial fibrillation; I10 Essential (primary) hypertension; I25.2 Old myocardial infarction; Z95.1 Presence of aortocoronary bypass graft

== ENCOUNTER 2018-05-23 19:45 | Observation (INO) | payer MEDICARE ==
[2018-05-23 19:45] VITALS: PULSE 106; BMI 23.0
--- NOTE | 2018-05-23 20:28 | ED PDOC ---
HPI: SOB/CHF/COPD Time Seen by Provider: 05/23/18 20:11 Chief Complaint (Nursing): Shortness Of Breath History Per: Patient, Family (daughter, Bhaskar (patient requesting daughter to translate)) History/Exam Limitations: no limitations Onset/Duration Of Symptoms: Days (2), Waxing/Waning Current Symptoms Are (Timing): Intermittent Episodes Exacerbating Factor(s): Exertion Additional Complaint(s): 78 y/o male brought in by EMS for evaluation of intermittent shortness of breath x 2 days. Patient had single chamber pacemaker placed on 05/14/18 for sick sinus syndrome. As per daughter, she noticed patient has been having to stop to catch his breath when walking up a flight of stairs, and less severe when walking down a flight of stairs. Patient also complaining of intermittent bouts of chills and sweats, but no fever when temperature measured by family. Patient denies headache, dizziness, chest pain, palpitations, leg pain/swelling. Past Medical History Reviewed: Historical Data, Nursing Documentation, Vital Signs Vital Signs: Last Vital Signs Temp 97.6 F 05/23/18 19:51 Pulse 106 H 05/23/18 19:51 Resp 20 05/23/18 19:51 BP 122/82 05/23/18 19:51 Pulse Ox 99 05/23/18 19:51 - Medical History PMH: Arthritis, Atrial Fibrillation, Bronchitis, CAD, CHF, COPD, Diabetes, HTN, Hypercholesterolemia, Hyperlipidemia, Osteoporosis, Pneumonia Denies: Anemia, Colonic Polyps, Fractures, Chronic Kidney Disease, TIA - Surgical History Surgical History: CABG, Endoscopy, Pacemaker - Family History Family History: States: Unknown Family Hx - Immunization History Hx Tetanus Toxoid Vaccination: No - Home Medications Home Medications: Ambulatory Orders Medication Instructions Recorded Atorvastatin [Lipitor] 10 mg PO DAILY 10/08/16 Cholecalciferol (Vitamin D3) 400 units PO DAILY 10/08/16 [Vitamin D-400] Enalapril Maleate [Vasotec] 5 mg PO DAILY 10/08/16 Glimepiride [amaRYL] 2 mg PO DAILY 10/08/16 Multivitamin [Multivitamins] 1 tab PO DAILY 10/08/16 Furosemide [Lasix] 20 mg PO DAILY 04/23/17 Cyanocobalamin/Salcaprozat Sod 1 tab PO DAILY 04/09/18 [Eligen B12 Tablet] Latanaprost 1 drop BOTHEYES DAILY 04/09/18 Metoprolol Tartrate [Lopressor] 50 mg PO Q12 04/09/18 Rivaroxaban [Xarelto] 20 mg PO DAILY 04/09/18 Acetaminophen [Tylenol 325mg tab] 650 mg PO Q6H PRN tab 05/15/18 - Allergies Allergies/Adverse Reactions: Allergies Allergy/AdvReac Type Severity Reaction Status Date / Time azithromycin Allergy ITCHING Verified 04/09/18 11:37 moxifloxacin [From Avelox] Allergy ITCHING Verified 04/09/18 11:37 Review of Systems ROS Statement: Except As Marked, All Systems Reviewed And Found Negative Respiratory: Positive for: Shortness of Breath Physical Exam - Reviewed Nursing Documentation Reviewed: Yes Vital Signs Reviewed: Yes - Physical Exam Appears: Positive for: Well, Non-toxic, No Acute Distress Head Exam: Positive for: ATRAUMATIC, NORMAL INSPECTION, NORMOCEPHALIC Skin: Positive for: Normal Color Eye Exam: Positive for: Normal appearance ENT: Positive for: Normal ENT Inspection Cardiovascular/Chest: Positive for: Regular Rate, Rhythm, Other (healing pacemaker incision site left anterior chest wall; no tenderness, drainage, surrounding erythema noted) Respiratory: Positive for: Crackles (bilateral bases). Negative for: Accessory Muscle Use, Respiratory Distress Gastrointestinal/Abdominal: Positive for: Normal Exam Back: Positive for: Normal Inspection Extremity: Positive for: Normal ROM Neurological/Psych: Positive for: Awake, Alert, Oriented - Laboratory Results Result Diagrams: 05/23/18 21:04 05/23/18 21:04 - ECG ECG: Positive for: Viewed By Me (reviewed by ED attending) ECG Rhythm: Positive for: Sinus Tachycardia O2 Sat by Pulse Oximetry: 99 - Progress ED Course And Treament: -ekg -cbc -cmp -bnp -troponin -pt/ptt -electronic device monitor -cxr EXAM: CR Chest, 1 View. CLINICAL HISTORY: Sob COMPARISON: Comparison is made to prior chest radiographic examination dated 05/14/2018. FINDINGS: LUNGS: Subtlefocal air space opacity is seen in the right upper lobe and left lower lobethought consistent with a small patchy pneumonic consolidations. PLEURAL SPACES: No evidence of pleural effusion or pneumothorax. MEDIASTINUM: There is moderate cardiomegaly with slight central vascular congestion present. Some component of CHF is likely present. There is evidence of previous cardiac surgery. A left transvenous pacemaker device is noted. BONES: No acute osseous abnormality. IMPRESSION: 1. Findings thought compatible with some CHF. 2. Subtle patchy pneumonic consolidations in the left lower lobe and right upper lobe. 3. Evidence of previous cardiac surgery. 4. A left transvenous pacemaker device is present. consolidations seen on previous xrays; no fever, cough, WBC noted Case discussed with Dr. Onofre, will give IV lasix dose and admit for observation. Disposition - Clinical Impression Clinical Impression: CHF exacerbation - Patient ED Disposition Is Patient to be Admitted: Yes - Disposition Disposition Time: 00:55 Condition: FAIR Forms: [employer] ([place]ian)
[2018-05-23 21:10] LABS: BASO # 0.1 K/uL (0.0-0.2); BASO % 1.3 % (0.0-2.0); EOS # 0.2 K/uL (0.0-0.7); EOS % 2.1 % (0.0-4.0); LYMPH # 1.7 K/uL (1.0-4.3); LYMPH % 18.7 % (20.0-40.0); MEAN CELL VOLUME 87.4 fl (80.0-94.0); MEAN CORPUSCULAR HEMOGLOBIN 29.3 pg (27.0-31.0); MEAN CORPUSCULAR HGB CONC 33.6 g/dL (33.0-37.0); MEAN PLATELET VOLUME 7.7 fl (7.2-11.7); MONO # 0.7 K/uL (0.0-0.8); MONO % 7.4 % (0.0-10.0); NEUT # 6.3 K/uL (1.8-7.0); NEUT % 70.5 % (50.0-75.0); NRBC % 0.1 % (0.0-0.0); RBC 4.09 Mil/uL (4.40-5.90); RED CELL DISTRIBUTION WIDTH 15.7 % (11.5-14.5); WHITE BLOOD COUNT 8.9 K/uL (4.8-10.8)
[2018-05-23 21:21] LABS: VENOUS BLOOD GAS BASE EXCESS -3.7 mmol/L (0.0-2.0); VENOUS BLOOD GAS PCO2 42 mmHg (40-60); VENOUS BLOOD GAS PO2 20 mm/Hg (30-55); VENOUS BLOOD PH 7.33 (7.32-7.43)
[2018-05-23 21:30] LABS: INR 1.8; PROTHROMBIN TIME 20.2 Seconds (9.8-13.1)
[2018-05-23 21:32] LABS: TROPONIN I 0.021 ng/mL (0.00-0.120)
[2018-05-23 21:33] LABS: PARTIAL THROMBOPLASTIN TIME 47.8 Seconds (25.6-37.1)
--- NOTE | 2018-05-24 10:14 | CP.PCM.HP ---
History of Present Illness - History of Present Illness History of Present Illness: This 78-year-old man hypertensive and diabetic who had required coronary bypass graft surgery more than 10 years back following a myocardial infarction and who had a VVI pacemaker implanted 1 week back because of tachy cardia bradycardia syndrome was brought to the emergency room by his daughter because he complained of shortness of breath while trying to climb a flight of stairs in her house. The patient did not have orthopnea and there was no history of pedal edema. The patient had been on 20 mg of furosemide for approximately a year and a half. He has been a smoker for a long time and continues to smoke. He admits to having eaten salty food in the recent past. He denies any palpitations or chest pain and has tolerated his medications well. Physical examination shows an elderly thin built man who is able to lie virtually flat in bed breathing comfortably at 16 breaths/min. His telemetry shows steady VVI paced rhythm. His blood pressure was 124/74 mmHg. His jugular venous pressure was not elevated and there was no edema over his lower extremities. The pedal pulses were extremely feeble but distinctly present. There were no carotid bruits. The pacemaker was in place in the left infraclavicular area with the surgical site healing well. There was no swelling or induration or discharge. The apex was not palpable the first and second heart sounds were normal. There was no murmur or gallop. There were no rales. His abdomen was soft. His liver and spleen are not palpable. His electrocardiogram in the emergency room showed periods of atrial flutter fibrillation with appropriate VVI sensed pattern. His labs show a creatinine of 1.9 mg percent. His electrolytes were essentially normal. The proBNP was markedly elevated at 10,600 pg/mL his troponin was normal his liver profile was normal. The chest x-ray shows pulmonary congestion. Impression congestive cardiac failure which is left ventricular systolic and acute on chronic. Stable coronary artery disease with status post coronary bypass graft surgery. 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 Hypertension diabetes mellitus and COPD due to chronic cigarette use. Chronic kidney disease probably secondary to diabetes mellitus and hypertension. His dose of Lasix has been increased to 40 mg daily and the patient will undergo an echocardiogram to evaluate his left ventricular systolic function. The patient requires a renal evaluation Present on Admission - Present on Admission Any Indicators Present on Admission: No Past Patient History - Past Medical History & Family History Past Medical History?: Yes - Past Social History Smoking Status: Former Smoker - CARDIAC Hx Cardiac Disorders: Yes - PULMONARY Hx Respiratory Disorders: Yes - NEUROLOGICAL Hx Neurological Disorder: No - HEENT Hx HEENT Problems: Yes - RENAL Hx Chronic Kidney Disease: No - ENDOCRINE/METABOLIC Hx Endocrine Disorders: Yes - HEMATOLOGICAL/ONCOLOGICAL Hx Blood Disorders: No - INTEGUMENTARY Hx Dermatological Problems: No - MUSCULOSKELETAL/RHEUMATOLOGICAL Hx Musculoskeletal Disorders: Yes - GASTROINTESTINAL Hx Gastrointestinal Disorders: No Hx Ulcer: Yes - GENITOURINARY/GYNECOLOGICAL Hx Genitourinary Disorders: Yes - PSYCHIATRIC Hx Psychophysiologic Disorder: No - SURGICAL HISTORY Hx Coronary Artery Bypass Graft: Yes - ANESTHESIA Hx Anesthesia: Yes Hx Anesthesia Reactions: No Hx Malignant Hyperthermia: No Meds Allergies/Adverse Reactions: Allergies Allergy/AdvReac Type Severity Reaction Status Date / Time azithromycin Allergy ITCHING Verified 04/09/18 11:37 moxifloxacin [From Avelox] Allergy ITCHING Verified 04/09/18 11:37 Results - Vital Signs Recent Vital Signs: Last Vital Signs Temp 98.0 F 05/24/18 08:15 Pulse 120 H 05/24/18 08:15 Resp 20 05/24/18 08:15 BP 118/74 05/24/18 08:15 Pulse Ox 99 05/24/18 08:15 - Labs Result Diagrams: 05/23/18 21:04 05/23/18 21:04 Labs: Laboratory Results - last 24 hr 05/23/18 05/23/18 05/23/18 21:04 21:04 21:04 WBC 8.9 RBC 4.09 L Hgb 12.0 Hct 35.8 MCV 87.4 MCH 29.3 MCHC 33.6 RDW 15.7 H Plt Count 182 MPV 7.7 Neut % (Auto) 70.5 Lymph % (Auto) 18.7 L Sheridan % (Auto) 7.4 Eos % (Auto) 2.1 Baso % (Auto) 1.3 Neut # (Auto) 6.3 Lymph # (Auto) 1.7 Sheridan # (Auto) 0.7 Eos # (Auto) 0.2 Baso # (Auto) 0.1 PT 20.2 H INR 1.8 APTT 47.8 H D-Dimer, Quantitative pO2 VBG pH VBG pCO2 VBG HCO3 VBG Total CO2 VBG O2 Sat (Calc) VBG Base Excess VBG Potassium Glucose Lactate FiO2 Sodium 135 Potassium 4.7 Chloride 103 Carbon Dioxide 20 L Anion Gap 17 BUN 33 H Creatinine 1.9 H Est GFR ( Amer) 41 Est GFR (Non-Af Amer) 34 POC Glucose (mg/dL) Random Glucose 81 Calcium 9.0 Total Bilirubin 0.5 AST 38 ALT 30 Alkaline Phosphatase 74 Troponin I 0.0210 NT-Pro-B Natriuret Pep 39501 H Total Protein 8.0 Albumin 4.0 Globulin 4.0 H Albumin/Globulin Ratio 1.0 Venous Blood Potassium 05/23/18 05/23/18 05/24/18 21:18 23:55 06:52 WBC RBC Hgb Hct MCV MCH MCHC RDW Plt Count MPV Neut % (Auto) Lymph % (Auto) Sheridan % (Auto) Eos % (Auto) Baso % (Auto) Neut # (Auto) Lymph # (Auto) Sheridan # (Auto) Eos # (Auto) Baso # (Auto) PT INR APTT D-Dimer, Quantitative < 200 pO2 20 L VBG pH 7.33 VBG pCO2 42 VBG HCO3 20.1 VBG Total CO2 23.4 VBG O2 Sat (Calc) 34.0 L VBG Base Excess -3.7 L VBG Potassium 4.7 Glucose 82 Lactate 0.9 FiO2 21.0 Sodium 133.0 Potassium Chloride 104.0 Carbon Dioxide Anion Gap BUN Creatinine Est GFR ( Amer) Est GFR (Non-Af Amer) POC Glucose (mg/dL) 96 Random Glucose Calcium Total Bilirubin AST ALT Alkaline Phosphatase Troponin I NT-Pro-B Natriuret Pep Total Protein Albumin Globulin Albumin/Globulin Ratio Venous Blood Potassium 4.7
--- NOTE | 2018-05-24 14:36 | RAD ---
Date of service: 05/23/2018 HISTORY: SOB. COMPARISON: Comparison chest 05/14/2018. . TECHNIQUE: 1 view obtained. FINDINGS: LUNGS: Pulmonary venous congestive changes with patchy alveolar-type infiltrates and suspected small effusions left larger than right. PLEURA: No significant pleural effusion identified, no pneumothorax apparent. CARDIOVASCULAR: No aortic atherosclerotic calcification present. Heart remains enlarged. Sternotomy wires and CABG clips as well as single lead pacemaker/defibrillator unchanged OSSEOUS STRUCTURES: No significant abnormalities. VISUALIZED UPPER ABDOMEN: Normal. OTHER FINDINGS: None. IMPRESSION: Pulmonary venous congestive changes with patchy alveolar-type infiltrates and suspected small effusions left larger than right.
--- NOTE | 2018-05-24 19:03 | CARD ---
APPROVED REPORT Date of service: 05/23/2018 EKG Measurement Heart [id number] <Conclusion> Sinus tachycardia with 1st degree AV block with premature supraventricular complexes Right bundle branch block T wave abnormality, consider inferolateral ischemia Abnormal ECG
[2018-05-25 07:03] LABS: ALB/GLOB RATIO 0.9 (1.0-2.1); ALBUMIN 4.1 g/dL (3.5-5.0)
--- NOTE | 2018-05-25 12:08 | CARD ---
APPROVED REPORT Date of service: 05/24/2018 EXAM: Two-dimensional and M-mode echocardiogram with Doppler and color Doppler. Other Information Quality : GoodRhythm : Pacemaker INDICATION Dyspnea Surgery/Intervention Pacemaker: 2D DIMENSIONS IVSd0.87 (0.7-1.1cm)LVDd4.29 (3.9-5.9cm) LVOT Diameter1.95 (1.8-2.4cm)PWd0.94 (0.7-1.1cm) IVSs0.72 (0.8-1.2cm)LVDs3.70 (2.5-4.0cm) FS (%) 13.8 %PWs1.24 (0.8-1.2cm) M-Mode DIMENSIONS Left Atrium (MM)3.91 (2.5-4.0cm)IVSd0.71 (0.7-1.1cm) Aortic Root3.44 (2.2-3.7cm)LVDd4.88 (4.0-5.6cm) Aortic Cusp Exc.1.47 (1.5-2.0cm)PWd0.74 (0.7-1.1cm) IVSs4.29 cmFS (%) 72 % LVDs1.35 (2.0-3.8cm)PWs0.47 cm Aortic Valve AoV Peak Dkxnvuhc25.1cm/sAoV VTI17.8cmAO Peak GR.3mmHg LVOT Peak Njwuqmnt63.4cm/sLVOT VTI10.15cmAO Mean GR.2mmHg ADAMS (VMAX)1.86mt1APE (VTI)1.14cm2 Mitral Valve MV E Vosomglk04.6cm/sMV DECEL RLOX370mzWO A Kyklvmmd74.2cm/s MV XOK38lqU/A ratio3.7MVA (PHT)3.13cm2 TDI E/Lateral E'0.0E/Medial E'0.0 Tricuspid Valve TR Peak Qxjadwqx977vl/sRAP UEGXHOJG46eoDoSG Peak Gr.20mmHg [id number] LEFT VENTRICLE The left ventricle is normal size. There is normal left ventricular wall thickness. Left ventricle systolic function is moderately to severely impaired. LVEF is 25-30%. The septal motion was abnorma because of ventricular paced rhythm and it was severely hypokinetic. Other segments were moderately hypokinetic LV diastolic performance could not be assesed because pt was in A fib with VVI paced rhythm RIGHT VENTRICLE The right ventricle is mildly dilated. There is normal right ventricular wall thickness. The right ventricular systolic function is normal. ATRIA The left atrium is mildly dilated. The right atrium is mildly dilated. AORTIC VALVE The aortic valve is normal in structure. No aortic regurgitation is present. There is no aortic valvular stenosis. MITRAL VALVE The mitral valve is normal in structure. There is no evidence of mitral valve prolapse. There is no mitral valve stenosis. Mitral regurgitation is mild to moderate. TRICUSPID VALVE The tricuspid valve is normal in structure. There is moderate tricuspid regurgitation. Right ventricular systolic pressure is estimated at 32 mmHg. There is mild pulmonary hypertension. PULMONIC VALVE The pulmonary valve is normal in structure. There is no pulmonic valvular regurgitation. GREAT VESSELS The aortic root is normal in size. The IVC was not visualized. PERICARDIAL EFFUSION The pericardium appears normal. <Conclusion> The left ventricle is normal size. There is normal left ventricular wall thickness. The septal motion was abnorma because of ventricular paced rhythm and it was severely hypokinetic. Other segments were moderately hypokinetic Left ventricle systolic function is moderately to severely impaired. LVEF is 25-30%. Mitral regurgitation is mild to moderate.
--- NOTE | 2018-05-25 13:09 | CP.PCM.PN ---
Subjective - Date & Time of Evaluation Date of Evaluation: 05/25/18 Time of Evaluation: 12:30 - Subjective Subjective: The patient was found sitting out of bed comfortably having walked in the corridor couple of times around the nurses station. The patient and his family indicate he has not noticed any significant dyspnea. Telemetry shows mostly a VVI paced rhythm at 60-64 bpm. His blood pressure was 126/74 mmHg. His jugular venous pressure was not elevated and there was no edema over his lower extremities. There was a pacemaker implanted in the left infraclavicular area with the surgical wound healing well. There were no rales. A brief apical systolic murmur was audible. His echocardiogram was reviewed. There were significant left ventricular wall motion abnormalities. The left ventricular ejection fraction was 30-35%. There was severe tricuspid regurgitation with mildly elevated pulmonary artery systolic pressure. Lab data reveals a BUN and creatinine improved to 31 and 1.7 mg percent respectively and an improvement in GFR. The patient was seen by head of insight and ultrasound of the kidneys was requested which is still awaited. Will reduce his dose of furosemide to 20 mg. Objective - Vital Signs/Intake and Output Vital Signs (last 24 hours): Temp Pulse Resp BP Pulse Ox 97.4 F L 67 20 112/62 98 05/25/18 12:08 05/25/18 12:08 05/25/18 12:08 05/25/18 12:08 05/25/18 12:08 - Medications Medications: Current Medications Atorvastatin Calcium (Lipitor) 10 mg PO DAILY [facility] BEDS AT [facility] Last Admin: 05/25/18 09:55 Dose: 10 mg Enalapril Maleate (Vasotec) 5 mg PO DAILY [facility]S [facility]CLUDE 234 BEDS AT THE [facility] Last Admin: 05/25/18 09:59 Dose: 5 mg Furosemide (Lasix) 40 mg PO DAILY [facility]CLUDE 234 BEDS AT THE [facility] Last Admin: 05/25/18 09:54 Dose: 40 mg Glyburide (Micronase) 2.5 mg PO BRK [facility]CLUDE 234 BEDS AT THE [facility] Last Admin: 05/25/18 09:59 Dose: 2.5 mg Metoprolol Tartrate (Lopressor) 150 mg PO Q12 [facility] 234 BEDS AT THE [facility] Last Admin: 05/25/18 09:56 Dose: 150 mg Rivaroxaban (Xarelto) 15 mg PO QD5 [facility]CLUDE 234 BEDS AT THE [facility]; Protocol Last Admin: 05/24/18 17:18 Dose: 15 mg - Labs Labs: 05/23/18 21:04 05/25/18 05:55 PT 20.2 Seconds (9.8-13.1) H 05/23/18 21:04 INR 1.8 05/23/18 21:04 APTT 47.8 Seconds (25.6-37.1) H 05/23/18 21:04
[2018-05-25 15:06] LABS: URINE BACTERIA MOD (<OCC); URINE BILIRUBIN NEGATIVE (NEGATIVE); URINE BLOOD NEGATIVE (NEGATIVE); URINE CLARITY CLEAR (Clear); URINE COLOR STRAW (YELLOW); URINE GLUCOSE (UA) NEG (NEGATIVE); URINE LEUKOCYTE ESTERASE LARGE Leu/uL (Negative); URINE PROTEIN NEGATIVE (NEGATIVE); URINE UROBILINOGEN 0.2-1.0 mg/dL (0.2-1.0)
[2018-05-25 15:07] LABS: SQUAMOUS EPITHIAL 3 /hpf (0-5)
--- NOTE | 2018-05-25 16:32 | US ---
Date of service: 05/25/2018 PROCEDURE: Ultrasound of the Kidneys HISTORY: APURVA COMPARISON: Comparison made with prior right upper quadrant ultrasound dated 10/08/2016. Comparison also made with prior CT scan of the abdomen pelvis 10/13/2016. TECHNIQUE: Sonogram of the kidneys. FINDINGS: RIGHT KIDNEY: Right kidney is small measuring approximately 7.3 x 4.4 x 3.7 cm. Right kidney is lobulated and echogenic consistent; rule out sequela chronic obstructive uropathy or infection.. No evidence of obstructing nephrolithiasis. No solid mass lesion or hydronephrosis visualized. LEFT KIDNEY: Left kidney exhibits relatively normal size measuring approximately 10.0 x 5.3 x 5.4 cm. Left kidney exhibits relatively normal contours and echotexture. No evidence of nephrolithiasis or hydronephrosis. No obvious renal masses or collections. No evidence of obstructing nephrolithiasis. OTHER FINDINGS: Prostate volume approximately 36.2 mL. IMPRESSION: Small lobulated echogenic right kidney; rule out sequela of chronic obstructive uropathy or infection. Unremarkable left kidney.
--- NOTE | 2018-05-25 17:22 | CP.PCM.CON ---
History of Present Illness - History of Present Illness History of Present Illness: renal consult note cc mohamud/ckd 78 yr old man with htn, cad s/p cabg ppm placement dm-2 is admitted with sob and hazel. no edema no urinary complaints. no prior diagnosis of ckd. had microscopy hematuria few years ago, followed with urologist briefly. no kdiney stones no nsaid use no urinary trouble no new meds fam hx negative for kidney disease pmh as above surgical hx cabg ppm placement social hx smoker, no alcohol alllergies and meds reviewed vitals reviewed heent normal op moist no jvd s1s2 present no resp distress abd soft nt nd ao times 3 cooperative skin normal no edema mohamud/ckd/htn/dm/cad/sob/PAH suspect renal failure is chronic ( reviewed his labs from last few visits , cr around 1.5-1.7) check renal and bladder usg, check urine lytes andurine for proteinuria continue current meds. no indication to hold acei as he has been on this for years avoid nsaids lytes ok dm and bp per primary team discussed care with daughter bedside Past Patient History - Past Medical History & Family History Past Medical History?: Yes - Past Social History Smoking Status: Former Smoker - CARDIAC Hx Cardiac Disorders: Yes Hx Atrial Fibrillation: Yes Hx Congestive Heart Failure: Yes Hx Hypercholesterolemia: Yes Hx Hypertension: Yes - PULMONARY Hx Respiratory Disorders: Yes Hx Bronchitis: Yes Hx Chronic Obstructive Pulmonary Disease (COPD): Yes Hx Pneumonia: Yes - NEUROLOGICAL Hx Neurological Disorder: No - HEENT Hx HEENT Problems: Yes - RENAL Hx Chronic Kidney Disease: No - ENDOCRINE/METABOLIC Hx Endocrine Disorders: Yes Hx Diabetes Mellitus Type 2: Yes - HEMATOLOGICAL/ONCOLOGICAL Hx Blood Disorders: No Hx AIDS: No Hx Human Immunodeficiency Virus (HIV): No - INTEGUMENTARY Hx Dermatological Problems: No - MUSCULOSKELETAL/RHEUMATOLOGICAL Hx Musculoskeletal Disorders: Yes Hx Falls: No Hx Osteoporosis: Yes - GASTROINTESTINAL Hx Gastrointestinal Disorders: No - GENITOURINARY/GYNECOLOGICAL Hx Genitourinary Disorders: No - PSYCHIATRIC Hx Psychophysiologic Disorder: No Hx Substance Use: No - SURGICAL HISTORY Hx Surgeries: Yes Hx Coronary Artery Bypass Graft: Yes Other/Comment: Pacemaker - ANESTHESIA Hx Anesthesia: Yes Hx Anesthesia Reactions: No Hx Malignant Hyperthermia: No Has any member of the family had a problem w/ anesthesia?: No Meds Allergies/Adverse Reactions: Allergies Allergy/AdvReac Type Severity Reaction Status Date / Time azithromycin Allergy ITCHING Verified 04/09/18 11:37 moxifloxacin [From Avelox] Allergy ITCHING Verified 04/09/18 11:37 - Medications Medications: Current Medications Atorvastatin Calcium (Lipitor) 10 mg PO DAILY [facility] Last Admin: 05/25/18 09:55 Dose: 10 mg Enalapril Maleate (Vasotec) 5 mg PO DAILY [facility] Last Admin: 05/25/18 09:59 Dose: 5 mg Furosemide (Lasix) 20 mg PO DAILY [facility] Glyburide (Micronase) 2.5 mg PO BRK [facility] Last Admin: 05/25/18 09:59 Dose: 2.5 mg Metoprolol Tartrate (Lopressor) 150 mg PO Q12 [facility] Last Admin: 05/25/18 09:56 Dose: 150 mg Rivaroxaban (Xarelto) 15 mg PO QD5 [facility]; Protocol Last Admin: 05/25/18 17:07 Dose: 15 mg Results - Vital Signs Recent Vital Signs: Last Vital Signs Temp 97.4 F L 05/25/18 16:29 Pulse 60 05/25/18 16:29 Resp 17 05/25/18 16:29 BP 104/59 L 05/25/18 16:29 Pulse Ox 100 05/25/18 16:29 - Labs Result Diagrams: 05/23/18 21:04 05/25/18 05:55 Labs: Laboratory Results - last 24 hr 05/24/18 05/25/18 05/25/18 21:27 05:11 05:55 Sodium 135 Potassium 4.0 Chloride 100 Carbon Dioxide 23 Anion Gap 16 BUN 31 H Creatinine 1.7 H Est GFR ( Amer) 47 Est GFR (Non-Af Amer) 39 POC Glucose (mg/dL) 146 H 89 Random Glucose 89 Calcium 9.0 Total Bilirubin 0.8 AST 34 ALT 28 Alkaline Phosphatase 82 Total Protein 8.4 H Albumin 4.1 Globulin 4.3 H Albumin/Globulin Ratio 0.9 L Urine Color Urine Clarity Urine pH Ur Specific [place] Urine Protein Urine Glucose (UA) Urine Ketones Urine Blood Urine Nitrate Urine Bilirubin Urine Urobilinogen Ur Leukocyte Esterase Urine RBC (Auto) Urine Microscopic WBC Ur Squamous Epith Cells Urine Bacteria Hyaline Casts Ur Random Creatinine 05/25/18 05/25/18 05/25/18 10:48 14:48 14:49 Sodium Potassium Chloride Carbon Dioxide Anion Gap BUN Creatinine Est GFR ( Amer) Est GFR (Non-Af Amer) POC Glucose (mg/dL) 134 H Random Glucose Calcium Total Bilirubin AST ALT Alkaline Phosphatase Total Protein Albumin Globulin Albumin/Globulin Ratio Urine Color Straw Urine Clarity Clear Urine pH 6.0 Ur Specific [place] < 1.005 Urine Protein Negative Urine Glucose (UA) Neg Urine Ketones Negative Urine Blood Negative Urine Nitrate Negative Urine Bilirubin Negative Urine Urobilinogen 0.2-1.0 Ur Leukocyte Esterase Large Urine RBC (Auto) 3 Urine Microscopic WBC 50 H Ur Squamous Epith Cells 3 Urine Bacteria Mod H Hyaline Casts 3-5 H Ur Random Creatinine 14.3 05/25/18 16:18 Sodium Potassium Chloride Carbon Dioxide Anion Gap BUN Creatinine Est GFR ( Amer) Est GFR (Non-Af Amer) POC Glucose (mg/dL) 107 Random Glucose Calcium Total Bilirubin AST ALT Alkaline Phosphatase Total Protein Albumin Globulin Albumin/Globulin Ratio Urine Color Urine Clarity Urine pH Ur Specific [place] Urine Protein Urine Glucose (UA) Urine Ketones Urine Blood Urine Nitrate Urine Bilirubin Urine Urobilinogen Ur Leukocyte Esterase Urine RBC (Auto) Urine Microscopic WBC Ur Squamous Epith Cells Urine Bacteria Hyaline Casts Ur Random Creatinine
[2018-05-26 05:04] VITALS: RESP 20
[2018-05-26 05:41] LABS: ALB/GLOB RATIO 0.9 (1.0-2.1); ALBUMIN 3.9 g/dL (3.5-5.0); CALCIUM 9.6 mg/dL (8.4-10.2)
--- NOTE | 2018-05-26 09:07 | CP.PCM.PN ---
Subjective - Date & Time of Evaluation Date of Evaluation: 05/26/18 Time of Evaluation: 09:07 - Subjective Subjective: Patient appears to be comfortable in bed not in acute distress. Family at the bedside and also I spoke to the son on the phone Vital sign appears to be stable no nausea no vomiting reported Objective - Vital Signs/Intake and Output Vital Signs (last 24 hours): Temp Pulse Resp BP Pulse Ox 97.8 F 63 20 102/62 99 05/26/18 08:04 05/26/18 08:33 05/26/18 08:04 05/26/18 08:33 05/26/18 08:04 - Medications Medications: Current Medications Atorvastatin Calcium (Lipitor) 10 mg PO DAILY [facility] Last Admin: 05/26/18 08:32 Dose: 10 mg Enalapril Maleate (Vasotec) 5 mg PO DAILY [facility] Last Admin: 05/26/18 08:32 Dose: 5 mg Furosemide (Lasix) 20 mg PO DAILY [facility] Last Admin: 05/26/18 08:33 Dose: 20 mg Glyburide (Micronase) 2.5 mg PO BRK [facility] Last Admin: 05/26/18 08:32 Dose: 2.5 mg Metoprolol Tartrate (Lopressor) 150 mg PO Q12 [facility] Last Admin: 05/26/18 08:33 Dose: 150 mg Rivaroxaban (Xarelto) 15 mg PO QD5 [facility]; Protocol Last Admin: 05/25/18 17:07 Dose: 15 mg - Labs Labs: 05/23/18 21:04 05/26/18 05:10 PT 20.2 Seconds (9.8-13.1) H 05/23/18 21:04 INR 1.8 05/23/18 21:04 APTT 47.8 Seconds (25.6-37.1) H 05/23/18 21:04 - Constitutional Appears: No Acute Distress - Eye Exam Eye Exam: Conjunctival injection - ENT Exam ENT Exam: Mucous Membranes Moist - Neck Exam Neck Exam: absent: Lymphadenopathy - Respiratory Exam Respiratory Exam: absent: Chest Wall Tenderness - Cardiovascular Exam Cardiovascular Exam: RRR. absent: Gallop, JVD - GI/Abdominal Exam GI & Abdominal Exam: Soft, Normal Bowel Sounds - Extremities Exam Extremities Exam: absent: Calf Tenderness - Back Exam Back Exam: absent: CVA tenderness (L), CVA tenderness (R) - Neurological Exam Neurological Exam: Alert - Psychiatric Exam Psychiatric exam: Normal Affect - Skin Skin Exam: absent: Cyanosis Assessment and Plan (1) Chronic kidney disease, stage III (moderate) Assessment & Plan: Rule out acute kidney injury superimposed on chronic kidney disease stage III his baseline serum creatinine in the range of 1.7 approximately The cause of acute kidney injury perhaps cardiorenal syndrome related to congestive heart failure and diuresis among other things. Metabolic alkalosis CO2 about 37 the latest related to diuretic Mild hyponatremia probably related to Lasix as well In addition underlying congestive heart failure with status post pacemaker . Diabetes mellitus Hypertension Recommendation Considering holding enalapril temporarily just for couple of days because of this rising BUN and creatinine? Hold Lasix may be for a day or 2 , carefully we will discussed with , Dr Onofre, Considering Diamox instead temporarily? If need diuresis ? Spot urine for protein to creatinine ratio Renal diet consistent of about 50 g protein 2 g sodium 2 g potassium Serum phosphorus Serum PTH Status: Acute (2) CHF exacerbation Status: Acute (3) Diabetes type 2, controlled Status: Acute
--- NOTE | 2018-05-26 09:18 | IP.NPCORE ---
Heart Failure Core Measure - Heart Failure Ejection Fraction: Less Than 40 % FRANCISCO Inhibitor Prescribed: No Contraindication/Reason for not providing: ARF Beta-Sheyla Prescribed: Metoprolol Succinate
--- NOTE | 2018-05-26 11:28 | CP.PCM.PN ---
Subjective - Date & Time of Evaluation Date of Evaluation: 05/26/18 Time of Evaluation: 09:00 - Subjective Subjective: he patient was found resortably in bed. The patient chaidez in the car door yesterday without any shortness of breath. His echocardiogram did revealed a depressed left ventricular syst function and he was continued to be on 20 mg of furosemide daily the patient was seen by the supervisor cemetery workers and I have discussed his case with him. The patient will be sent home on present medications. He will see the supervisor [employer] and me as an outpatient. Objective - Vital Signs/Intake and Output Vital Signs (last 24 hours): Temp Pulse Resp BP Pulse Ox 97.8 F 63 20 102/62 99 05/26/18 08:04 05/26/18 08:33 05/26/18 08:04 05/26/18 08:33 05/26/18 08:04 - Medications Medications: Current Medications Atorvastatin Calcium (Lipitor) 10 mg PO DAILY [facility] Last Admin: 05/26/18 08:32 Dose: 10 mg Enalapril Maleate (Vasotec) 5 mg PO DAILY [facility] Furosemide (Lasix) 20 mg PO DAILY [facility] Last Admin: 05/26/18 08:33 Dose: 20 mg Glyburide (Micronase) 2.5 mg PO BRK [facility] Last Admin: 05/26/18 08:32 Dose: 2.5 mg Metoprolol Tartrate (Lopressor) 150 mg PO Q12 [facility] Last Admin: 05/26/18 08:33 Dose: 150 mg Rivaroxaban (Xarelto) 15 mg PO QD5 [facility]; Protocol Last Admin: 05/25/18 17:07 Dose: 15 mg - Labs Labs: 05/23/18 21:04 05/26/18 05:10 PT 20.2 Seconds (9.8-13.1) H 05/23/18 21:04 INR 1.8 05/23/18 21:04 APTT 47.8 Seconds (25.6-37.1) H 05/23/18 21:04
[2018-05-26 15:42] LABS: CREATININE, RANDOM URINE 26.2 mg/dL
[2018-05-26 15:46] VITALS: BP 102/63; PULSE 62; TEMP 96; O2SAT 100
--- NOTE | 2018-05-26 17:30 | CARD ---
APPROVED REPORT Date of service: 05/26/2018 EKG Measurement Heart [id number] <Conclusion> Demand ventricular-paced rhythm with occasional premature ventricular complexes Abnormal ECG
--- NOTE | 2018-05-27 07:33 | CP.PCM.DIS ---
Provider - Provider Date of Admission: 05/24/18 01:22 Attending physician: Guillermo Onofre MD Consults: 05/24/18 10:15 Nephrology Consult Routine Comment: Evaluate and Rx Consulting Provider: Phong Castillo Consulting Physician: Phong Castillo Reason for Consult: Azotemia 05/24/18 12:36 Case Management Referral Routine Comment: Physician Instructions: Reason For Exam: Reason for Referral: Discharge Planning Time Spent in preparation of Discharge (in minutes): 30 Hospital Course - Lab Results Lab Results: Micro Results 05/24/18 01:30 Blood Blood Culture - Preliminary NO GROWTH AFTER 3 DAYS 05/24/18 01:05 Blood Blood Culture - Preliminary NO GROWTH AFTER 3 DAYS Most Recent Lab Values WBC 8.9 K/uL (4.8-10.8) 05/23/18 21:04 RBC 4.09 Mil/uL (4.40-5.90) L 05/23/18 21:04 Hgb 12.0 g/dL (12.0-18.0) 05/23/18 21:04 Hct 35.8 % (35.0-51.0) 05/23/18 21:04 MCV 87.4 fl (80.0-94.0) 05/23/18 21:04 MCH 29.3 pg (27.0-31.0) 05/23/18 21:04 MCHC 33.6 g/dL (33.0-37.0) 05/23/18 21:04 RDW 15.7 % (11.5-14.5) H 05/23/18 21:04 Plt Count 182 K/uL (130-400) 05/23/18 21:04 MPV 7.7 fl (7.2-11.7) 05/23/18 21:04 Neut % (Auto) 70.5 % (50.0-75.0) 05/23/18 21:04 Lymph % (Auto) 18.7 % (20.0-40.0) L 05/23/18 21:04 [place] % (Auto) 7.4 % (0.0-10.0) 05/23/18 21:04 Eos % (Auto) 2.1 % (0.0-4.0) 05/23/18 21:04 Baso % (Auto) 1.3 % (0.0-2.0) 05/23/18 21:04 Neut # (Auto) 6.3 K/uL (1.8-7.0) 05/23/18 21:04 Lymph # (Auto) 1.7 K/uL (1.0-4.3) 05/23/18 21:04 [place] # (Auto) 0.7 K/uL (0.0-0.8) 05/23/18 21:04 Eos # (Auto) 0.2 K/uL (0.0-0.7) 05/23/18 21:04 Baso # (Auto) 0.1 K/uL (0.0-0.2) 05/23/18 21:04 PT 20.2 Seconds (9.8-13.1) H 05/23/18 21:04 INR 1.8 05/23/18 21:04 APTT 47.8 Seconds (25.6-37.1) H 05/23/18 21:04 D-Dimer, Quantitative < 200 ng/mlDDU (0-230) 05/23/18 23:55 pO2 20 mm/Hg (30-55) L 05/23/18 21:18 VBG pH 7.33 (7.32-7.43) 05/23/18 21:18 VBG pCO2 42 mmHg (40-60) 05/23/18 21:18 VBG HCO3 20.1 mmol/L 05/23/18 21:18 VBG Total CO2 23.4 mmol/L (22-28) 05/23/18 21:18 VBG O2 Sat (Calc) 34.0 % (40-65) L 05/23/18 21:18 VBG Base Excess -3.7 mmol/L (0.0-2.0) L 05/23/18 21:18 VBG Potassium 4.7 mmol/L (3.6-5.2) 05/23/18 21:18 Sodium 133.0 mmol/L (132-148) 05/23/18 21:18 Chloride 104.0 mmol/L (98-107) 05/23/18 21:18 Glucose 82 mg/dL (75-110) 05/23/18 21:18 Lactate 0.9 mmol/L (0.7-2.1) 05/23/18 21:18 FiO2 21.0 % 05/23/18 21:18 Sodium 134 mmol/l (132-148) 05/26/18 05:10 Potassium 3.8 MMOL/L (3.6-5.0) 05/26/18 05:10 Chloride 100 mmol/L (98-107) 05/26/18 05:10 Carbon Dioxide 23 mmol/L (22-30) 05/26/18 05:10 Anion Gap 15 (10-20) 05/26/18 05:10 BUN 37 mg/dl (9-20) H 05/26/18 05:10 Creatinine 2.0 mg/dl (0.8-1.5) H 05/26/18 05:10 Est GFR ( Amer) 39 05/26/18 05:10 Est GFR (Non-Af Amer) 32 05/26/18 05:10 POC Glucose (mg/dL) 105 mg/dL (65-110) 05/26/18 16:03 Random Glucose 84 mg/dL (75-110) 05/26/18 05:10 Calcium 9.6 mg/dL (8.4-10.2) 05/26/18 05:10 Phosphorus 4.9 mg/dl (2.5-4.5) H 05/26/18 10:00 Total Bilirubin 0.7 mg/dl (0.2-1.3) 05/26/18 05:10 AST 35 U/L (17-59) 05/26/18 05:10 ALT 28 U/L (21-72) 05/26/18 05:10 Alkaline Phosphatase 75 U/L (38-126) 05/26/18 05:10 Troponin I 0.0210 ng/mL (0.00-0.120) 05/23/18 21:04 NT-Pro-B Natriuret Pep 66916 pg/ml (0-900) H 05/23/18 21:04 Total Protein 8.0 G/DL (6.3-8.2) 05/26/18 05:10 Albumin 3.9 g/dL (3.5-5.0) 05/26/18 05:10 Globulin 4.1 gm/dL (2.2-3.9) H 05/26/18 05:10 Albumin/Globulin Ratio 0.9 (1.0-2.1) L 05/26/18 05:10 Venous Blood Potassium 4.7 mmol/L (3.6-5.2) 05/23/18 21:18 Urine Color Straw (YELLOW) 05/25/18 14:48 Urine Clarity Clear (Clear) 05/25/18 14:48 Urine pH 6.0 (5.0-8.0) 05/25/18 14:48 Ur Specific [place] < 1.005 (1.003-1.030) 05/25/18 14:48 Urine Protein Negative mg/dL (NEGATIVE) 05/25/18 14:48 Urine Glucose (UA) Neg mg/dL (NEGATIVE) 05/25/18 14:48 Urine Ketones Negative mg/dL (NEGATIVE) 05/25/18 14:48 Urine Blood Negative (NEGATIVE) 05/25/18 14:48 Urine Nitrate Negative (NEGATIVE) 05/25/18 14:48 Urine Bilirubin Negative (NEGATIVE) 05/25/18 14:48 Urine Urobilinogen 0.2-1.0 mg/dL (0.2-1.0) 05/25/18 14:48 Ur Leukocyte Esterase Large [place]io/uL (Negative) 05/25/18 14:48 Urine RBC (Auto) 3 /hpf (0-3) 05/25/18 14:48 Urine Microscopic WBC 50 /hpf (0-5) H 05/25/18 14:48 Ur Squamous Epith Cells 3 /hpf (0-5) 05/25/18 14:48 Urine Bacteria Mod (<OCC) H 05/25/18 14:48 Hyaline Casts 3-5 /hpf (0-2) H 05/25/18 14:48 Ur Random Creatinine 26.2 mg/dL 05/26/18 15:21 U Random Total Protein 16.0 mg/dL (0.0-12.0) H 05/26/18 15:21 - Hospital Course Hospital Course: This 78-year-old man was brought to the emergency room by his daughter reporting that he was complaining of shortness of breath on minimal exertion which he had not complained of earlier on. The patient has a long medical history that includes a myocardial infarction in 2000 followed by a coronary angiogram which revealed triple-vessel coronary artery disease requiring coronary bypass graft surgery in 2000. Eventually the patient developed diabetes mellitus. He had been hypertensive and a smoker for a long time in fact he continues to smoke. The patient had developed atrial fibrillation couple of years back and had been on oral anticoagulant with metoprolol to control his heart rate. Recently in February 2018 he had visited the emergency room and was found to have significant bradycardia and metoprolol was gradually reduced and eventually discontinued in spite of which a Holter monitor showed evidence of tachycardia bradycardia syndrome and the patient had undergone a VVI pacemaker implant approximately a week before this hospitalization. The patient has had a history of habitually eating salty food. There has never been any pedal edema or orthopnea. On arriving in the emergency room the patient displayed atrial flutter fibrillation with a heart rate of 102 bpm with appropriate sensing by his VVI pacemaker. Chest x-ray revealed significant pulmonary congestion and his proBNP was 10,600 pg/mL. The patient was hospitalized with a diagnosis of congestive cardiac failure. It does of intravenous furosemide given in the emergency room resulted in significant diuresis and prompt resolution of his symptoms. His telemetry demonstrated mostly atrial fibrillation with a VVI paced rhythm. The patient remained hemodynamically stable. His BUN/creatinine at admission was 33 and 1.9 mg percent. In fact the patient had demonstrated a mild degree of azotemia a week back during his pacemaker implant as well. An echocardiogram done during this hospitalization revealed significant septal motion abnormality partly due to a VVI paced rhythm and otherwise also severe hypokinesia with an overall left ventricular systolic function with significantly depressed and an ejection fraction in the range of 30-35%. There was evidence of moderate mitral regurgitation and moderate to severe tricuspid regurgitation with a pulmonary artery systolic pressure of 42 mmHg. A renal consultation was obtained and the patient underwent a renal ultrasound. There was significant shrinking of right kidney. There was no evidence of proteinuria. A diagnosis of chronic kidney disease stage III probably secondary to hypertension was made. Patient remained hemodynamically stable and ambulated freely in the corridor demonstrating marked resolution of his dyspnea on exertion. The patient was eventually sent home taking 20 mg of furosemide every day which he used to take prior to his hospitalization. The family was instructed to watch for any worsening of dyspnea on exertion. His final diagnosis was congestive cardiac failure which was left ventricular systolic and acute on chronic. Stable coronary artery disease with status post coronary bypass graft surgery. Chronic kidney disease stage III secondary to hypertension and atherosclerosis. 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 The patient was stable at the time of discharge and his diet medication activities were explained to him as well as his family. He will return to see me within a week and arrangements have been made for him to see the parlor chaperone as well. Discharge Exam - Head Exam Head Exam: ATRAUMATIC, NORMAL INSPECTION, NORMOCEPHALIC Discharge Plan - Follow Up Plan Condition: FAIR Disposition: HOME/ ROUTINE Instructions: Heart Failure, Adult (DC) Additional Instructions: Per Dr. Onofer follow up in his office in 2 weeks, please call his office to make appointment. Referrals: Guillermo Onofre MD [Staff Provider] - Phong Castillo MD [Staff Provider] - Marlyn Ta DO [Family Provider] -
== END 2018-05-26 18:15 | disposition home or self-care (01) ==
LOC: H.ER 19:45 → H.ERHOLD 05-24 01:22 → H.TEL 05-24 06:15
PROVIDERS: ADMIT Internal Medicine Cardiovascular Disease; ATTEND Internal Medicine Cardiovascular Disease
DX: I13.0 Hypertensive heart and chronic kidney disease with heart failure and stage 1 through stage 4 chronic kidney disease, or unspecified chronic kidney disease (principal); I50.23 Acute on chronic systolic (congestive) heart failure; I25.10 Atherosclerotic heart disease of native coronary artery without angina pectoris; Z95.1 Presence of aortocoronary bypass graft; Z95.0 Presence of cardiac pacemaker; J44.9 Chronic obstructive pulmonary disease, unspecified; N17.9 Acute kidney failure, unspecified; E11.22 Type 2 diabetes mellitus with diabetic chronic kidney disease; E78.00 Pure hypercholesterolemia, unspecified; E78.5 Hyperlipidemia, unspecified; I08.1 Rheumatic disorders of both mitral and tricuspid valves; N18.3 Chronic kidney disease, stage 3 (moderate); E87.3 Alkalosis; E87.1 Hypo-osmolality and hyponatremia; I25.2 Old myocardial infarction; F17.200 Nicotine dependence, unspecified, uncomplicated; I48.91 Unspecified atrial fibrillation; Z79.01 Long term (current) use of anticoagulants; Z88.1 Allergy status to other antibiotic agents; Z88.3 Allergy status to other anti-infective agents; M81.0 Age-related osteoporosis without current pathological fracture
CPT/HCPCS: 36415; 71045; 76770; 76857; 80053; 81003; 82570; 82803; 82948; 83880; 83970; 84100; 84156; 84484; 85025; 85378; 85610; 85730; 87040; 93005; 93306; 96374; 99285; G0378; J1940

== ENCOUNTER 2018-07-02 04:46 | Observation (INO) | payer MEDICARE ==
[2018-07-02 04:47] VITALS: PULSE 106; BMI 23.0
[2018-07-02] MEDS ORDERED: Albuterol-Ipratrop 3 mg / 0.5 (3 ml) UD INH STA (05:37)
[2018-07-02] MEDS ORDERED: Nitroglycerin 2% Ointment Foilpak UD TOP STA (05:37)
[2018-07-02] MEDS ORDERED: Nitroglycerin 2% Ointment Foilpak UD TOP ONE ×2 (05:51→05:54)
[2018-07-02] MEDS ORDERED: Albuterol-Ipratrop 3 mg / 0.5 (3 ml) UD ONE (05:51)
[2018-07-02 06:15] LABS: INR 1.5; PROTHROMBIN TIME 17.6 Seconds (9.8-13.1)
[2018-07-02 06:17] LABS: PARTIAL THROMBOPLASTIN TIME 38.8 Seconds (25.6-37.1)
[2018-07-02 06:19] LABS: BASO # 0.1 K/uL (0.0-0.2); BASO % 1.3 % (0.0-2.0); EOS # 0.5 K/uL (0.0-0.7); EOS % 6.4 % (0.0-4.0); HEMOGLOBIN 11.2 g/dL (12.0-18.0); LYMPH # 1.4 K/uL (1.0-4.3); LYMPH % 18.6 % (20.0-40.0); MEAN CELL VOLUME 88.2 fl (80.0-94.0); MEAN CORPUSCULAR HEMOGLOBIN 28.7 pg (27.0-31.0); MEAN CORPUSCULAR HGB CONC 32.6 g/dL (33.0-37.0); MEAN PLATELET VOLUME 7.6 fl (7.2-11.7); MONO # 0.6 K/uL (0.0-0.8); MONO % 8.7 % (0.0-10.0); NEUT # 4.8 K/uL (1.8-7.0); NRBC % 0.1 % (0.0-0.0); RBC 3.88 Mil/uL (4.40-5.90); RED CELL DISTRIBUTION WIDTH 16.7 % (11.5-14.5); WHITE BLOOD COUNT 7.3 K/uL (4.8-10.8)
[2018-07-02 06:21] LABS: ALBUMIN 3.8 g/dL (3.5-5.0); ALT/SGPT 49 U/L (21-72); AST/SGOT 51 U/L (17-59); BLOOD UREA NITROGEN 35 mg/dl (9-20); CALCIUM 8.7 mg/dL (8.4-10.2); GFR NON-AFRICAN AMERICAN 42
--- NOTE | 2018-07-02 06:26 | ED PDOC ---
HPI: SOB/CHF/COPD Time Seen by Provider: 07/02/18 05:07 Chief Complaint (Nursing): Shortness Of Breath Chief Complaint (Provider): Shortness Of Breath History Per: Patient History/Exam Limitations: no limitations Onset/Duration Of Symptoms: Days Current Symptoms Are (Timing): Still Present Additional Complaint(s): 78 y/o [place] male with a PMHx of COPD, CHF, HTN and DM presents to the ED for evaluation of shortness of breath associated with decreased appetite, abdominal pain and back pain, onset one day ago. Daughter reports of having noticed audible wheezing at onset. Otherwise, patient denies fever, lower extremity swelling, vomiting and diarrhea. PMD: non [facility] provider Past Medical History Reviewed: Historical Data, Nursing Documentation, Vital Signs Vital Signs: Last Vital Signs Temp 97.4 F L 07/02/18 05:08 Pulse 66 07/02/18 05:08 Resp 18 07/02/18 05:08 BP 130/78 07/02/18 06:07 Pulse Ox 100 07/02/18 05:08 Primary Care Provider: Non [facility] Provider, - Medical History PMH: Arthritis, Atrial Fibrillation, Bronchitis, CAD, Cardia Arrhythmia (A FIB), CHF, COPD, Diabetes, HTN, Hypercholesterolemia, Hyperlipidemia, Osteoporosis, Pneumonia Denies: Anemia, Colonic Polyps, Fractures, HIV, Chronic Kidney Disease, TIA - Surgical History Surgical History: CABG, Endoscopy, Pacemaker - Family History Family History: States: Unknown Family Hx - Social History Current smoker - smoking cessation education provided: No Alcohol: None Drugs: Denies - Immunization History Hx Tetanus Toxoid Vaccination: No - Home Medications Home Medications: Ambulatory Orders Medication Instructions Recorded Atorvastatin [Lipitor] 10 mg PO DAILY 10/08/16 Cholecalciferol (Vitamin D3) 400 units PO DAILY 10/08/16 [Vitamin D-400] Enalapril Maleate [Vasotec] 5 mg PO DAILY 10/08/16 Glimepiride [amaRYL] 2 mg PO DAILY 10/08/16 Multivitamin [Multivitamins] 1 tab PO DAILY 10/08/16 Furosemide [Lasix] 20 mg PO DAILY 04/23/17 Cyanocobalamin/Salcaprozat Sod 1 tab PO DAILY 04/09/18 [Eligen B12 Tablet] Latanaprost 1 drop BOTHEYES DAILY 04/09/18 Rivaroxaban [Xarelto] 20 mg PO DAILY 04/09/18 Acetaminophen [Tylenol 325mg tab] 650 mg PO PRN PRN 05/24/18 Atorvastatin [Lipitor] 10 mg PO DAILY tab 05/26/18 Metoprolol Tartrate [Lopressor] 150 mg PO Q12 tab 05/26/18 - Allergies Allergies/Adverse Reactions: Allergies Allergy/AdvReac Type Severity Reaction Status Date / Time azithromycin Allergy ITCHING Verified 07/02/18 05:10 moxifloxacin [From Avelox] Allergy ITCHING Verified 07/02/18 05:10 Review of Systems ROS Statement: Except As Marked, All Systems Reviewed And Found Negative Constitutional: Negative for: Fever Respiratory: Positive for: Shortness of Breath, Wheezing Gastrointestinal: Positive for: Abdominal Pain, Other (decreased appetite). Negative for: Vomiting, Diarrhea Musculoskeletal: Positive for: Back Pain. Negative for: Leg Pain Physical Exam - Reviewed Nursing Documentation Reviewed: Yes Vital Signs Reviewed: Yes - Physical Exam Appears: Positive for: In Acute Distress Head Exam: Positive for: ATRAUMATIC Skin: Positive for: Normal Color, Warm, Dry Eye Exam: Positive for: Normal appearance, EOMI, PERRL Neck: Positive for: Normal, Painless ROM, Supple Cardiovascular/Chest: Positive for: Regular Rate, Rhythm. Negative for: Murmur Respiratory: Positive for: Rales (BILATERAL ), Wheezing (EXPIRATORY WHEEZING BILATERALLY), Respiratory Distress (MILD RESPIRATORY DISTRESS) Gastrointestinal/Abdominal: Positive for: Normal Exam, Soft. Negative for: Tenderness Extremity: Positive for: Normal ROM. Negative for: Deformity Neurological/Psych: Positive for: Awake, Alert, Oriented (x3). Negative for: Motor/Sensory Deficits - Laboratory Results Result Diagrams: 07/02/18 06:00 07/02/18 06:00 Lab Results: PT 17.6 Seconds (9.8-13.1) H 07/02/18 06:00 INR 1.5 07/02/18 06:00 APTT 38.8 Seconds (25.6-37.1) H 07/02/18 06:00 Total Bilirubin 1.2 mg/dl (0.2-1.3) 07/02/18 06:00 AST 51 U/L (17-59) 07/02/18 06:00 ALT 49 U/L (21-72) 07/02/18 06:00 Alkaline Phosphatase 70 U/L (38-126) 07/02/18 06:00 Total Protein 7.6 G/DL (6.3-8.2) 07/02/18 06:00 Albumin 3.8 g/dL (3.5-5.0) 07/02/18 06:00 Globulin 3.8 gm/dL (2.2-3.9) 07/02/18 06:00 Albumin/Globulin Ratio 1.0 (1.0-2.1) 07/02/18 06:00 - ECG O2 Sat by Pulse Oximetry: 100 (RA) Pulse Ox Interpretation: Normal - Critical Care Total Time (In Min): 30 Documented Critical Care: Time excludes all time spent performint seperately billable procedures Medical Decision Making Medical Decision Making: Time: 536 Impression: 78 y/o male presenting with CHF Plan: -- EKG -- B-Type Natriuretic Peptide -- CMP -- Troponin I -- ED Urine Dipstick -- CBC with Differentials -- PTT -- Prothrombin Time -- CXR Portable -- Duoneb 3mg/0.5mg (3ml) UD 3 ml INH -- Lasix 40 mg IV -- Nitro-Bid 2% Oint 1 ea TOP -- Heplock Insertion -- Peak Flow Pre/Post Tx -- Urinalysis Time: 629 Labs reviewed show no clinically significant abnormalities Chest Xray shows CM with B/L PVC -- Spoke to Dr. Nanette Onofre who requests patient to be admitted under medical service for COPD/CHF observation. Scribe Attestation: Documented by Milind Zambrano, acting as a scribe for Jordy Ramos MD. Provider Scribe Attestation: All medical record entries made by the Scribe were at my direction and personally dictated by me. I have reviewed the chart and agree that the record accurately reflects my personal performance of the history, physical exam, medical decision making, and the department course for this patient. I have also personally directed, reviewed, and agree with the discharge instructions and disposition. Disposition - Clinical Impression Clinical Impression: CHF exacerbation Discussed With : Guillermo Onofre - Disposition Disposition Time: 06:00 Condition: FAIR
[2018-07-02 06:30] LABS: B-TYPE NATRIURETIC PEPTIDE 6030 pg/ml (0-900)
--- NOTE | 2018-07-02 08:08 | RAD ---
Date of service: 07/02/2018 HISTORY: chest pain COMPARISON: 05/23/2017 chest x-ray. TECHNIQUE: 1 view obtained. FINDINGS: LUNGS: Lung volumes within normal limits. Interval increased oval opacity right mid/upper lung zone. Interval infiltrate inferred. Follow-up to complete resolution recommended. Interval increased pulmonary venous congestion PLEURA: Minimal small bilateral pleural effusions suspect. No pneumothorax. CARDIOVASCULAR: There is presence of aortic atherosclerotic calcification on x-ray. Cardiomegaly. Interval increased pulmonary venous congestion. Intact midline sternal wires. Single lead pacemaker in place-position and integrity appearance satisfactory. OSSEOUS STRUCTURES: Thoraco lumbar spondylosis. Bilateral shoulder arthrosis. VISUALIZED UPPER ABDOMEN: Normal. OTHER FINDINGS: None. IMPRESSION: Interval mixed pathologies: Cardiomegaly and interval increased pulmonary venous congestion. Interval right mid/upper lobe infiltrate/[id number] to complete resolution recommended.
[2018-07-02 08:55] LABS: URINE BACTERIA FEW (<OCC); URINE BILIRUBIN NEGATIVE (NEGATIVE); URINE BLOOD NEGATIVE (NEGATIVE); URINE CLARITY SLIGHTY-CLOUDY (Clear); URINE COLOR YELLOW (YELLOW); URINE GLUCOSE (UA) NEG (NEGATIVE); URINE LEUKOCYTE ESTERASE LARGE Leu/uL (Negative); URINE PROTEIN NEGATIVE (NEGATIVE); URINE UROBILINOGEN 0.2-1.0 mg/dL (0.2-1.0)
[2018-07-02] MEDS ORDERED: Metoprolol 1 mg/ml Inj IVP ONE (09:48)
--- NOTE | 2018-07-02 10:03 | CP.PCM.HP ---
History of Present Illness - History of Present Illness History of Present Illness: This 78-year-old man, a long-standing hypertensive and diabetic and stable coronary artery disease who had required coronary bypass graft surgery more than 15 years back and had tachycardia bradycardia syndrome requiring insertion of a VVI pacemaker in April of this year, who has had a history of congestive cardiac failure because of a depressed left ventricular systolic function and significant COPD as a consequence of years of chronic cigarette use in the past, was brought to the emergency room by his family when he complained of shortness of breath. The patient has been hospitalized with congestive cardiac failure a month and a half back and again within a week and has been taking 20 mg of furosemide daily. The patient has had stage III CKD. Attempts to aggressively diurese him often lead to an abrupt rise in his creatinine. The patient has had intermittent diarrhea the precise nature of which is uncertain. Recently the patient's daughter had reported wheezing upon attempting to climb stairs. She had indicated that the patient was not short of breath during his day-to-day activities or at rest. And there had never been an episode of orthopnea or pedal edema. He has taken his medications regularly but has had a tendency to eat salty food. The patient has had atrial fibrillation for which she takes oral anticoagulation. Physical examination shows an elderly man who is able to lie virtually flat and breathes at 16 to 18 breaths/min and following a recent treatment with albuterol displays atrial fibrillation at a heart rate of 120 bpm. His blood pressure was 110/70 mmHg. His jugular venous pressure was not elevated and there was no edema over his lower extremity. The patient had received intravenous furosemide approximately 4 hours before. Extremities were warm his nailbeds were pink. There was no central or peripheral cyanosis. There was no clubbing. A scar of sternotomy was evident. The apex was in the 6 space slightly heaving in character brief apical systolic murmur of mitral regurgitation was evident a pacemaker was then placed in the left infraclavicular area. Inspiratory effort was poor. There were scattered rales at both bases. Abdomen was soft and liver and spleen are not palpable. His electrocardiogram showed a VVI paced rhythm. Chest x-ray revealed a right middle lobe infiltrate with pulmonary venous congestion. His lab data showed normocytic normochromic anemia with a creatinine of 1.6 mg percent which is an improvement over his creatinine 2 months back at 2.1 mg percent. Rest of his labs were noted. Impression: Congestive cardiac failure which is left ventricular systolic and chronic. COPD. Right middle lobe infiltrate. CKD stage III. Diabetes and hypertension. Stable coronary artery disease with status post coronary bypass graft surgery. Status post VVI pacemaker implant for tachycardia bradycardia syndrome which includes atrial fibrillation. Pulmonary consultation has been requested because of the chest x-ray findings of right middle lobe infiltrate. The patient would be diuresed aggressively. An echocardiogram on May 24 had shown left ventricular ejection fraction of 25 to 30%. Present on Admission - Present on Admission Any Indicators Present on Admission: No Past Patient History - Past Medical History & Family History Past Medical History?: Yes - Past Social History Smoking Status: Former Smoker - CARDIAC Hx Atrial Fibrillation: Yes Hx Cardia Arrhythmia: Yes (A FIB) Hx Congestive Heart Failure: Yes Hx Hypercholesterolemia: Yes Hx Hypertension: Yes Hx Pacemaker: Yes - PULMONARY Hx Bronchitis: Yes Hx Chronic Obstructive Pulmonary Disease (COPD): Yes Hx Pneumonia: Yes - NEUROLOGICAL Hx Transient Ischemic Attacks (TIA): No - HEENT Hx HEENT Problems: Yes - RENAL Hx Chronic Kidney Disease: No - ENDOCRINE/METABOLIC Hx Endocrine Disorders: Yes Hx Diabetes Mellitus Type 2: Yes - HEMATOLOGICAL/ONCOLOGICAL Hx Anemia: No Hx Human Immunodeficiency Virus (HIV): No - INTEGUMENTARY Hx Dermatological Problems: No - MUSCULOSKELETAL/RHEUMATOLOGICAL Hx Arthritis: Yes Hx Fractures: No Hx Osteoporosis: Yes - GASTROINTESTINAL Hx Gastrointestinal Disorders: No - GENITOURINARY/GYNECOLOGICAL Hx Genitourinary Disorders: No - PSYCHIATRIC Hx Psychophysiologic Disorder: No Hx Substance Use: No - SURGICAL HISTORY Hx Coronary Artery Bypass Graft: Yes - ANESTHESIA Hx Anesthesia: Yes Hx Anesthesia Reactions: No Hx Malignant Hyperthermia: No Meds Allergies/Adverse Reactions: Allergies Allergy/AdvReac Type Severity Reaction Status Date / Time azithromycin Allergy ITCHING Verified 07/02/18 05:10 moxifloxacin [From Avelox] Allergy ITCHING Verified 07/02/18 05:10 Results - Vital Signs Recent Vital Signs: Last Vital Signs Temp 97.8 F 07/02/18 08:33 Pulse 115 H 07/02/18 08:01 Resp 24 07/02/18 08:01 BP 115/78 07/02/18 08:01 Pulse Ox 100 07/02/18 08:01 - Labs Result Diagrams: 07/02/18 06:00 07/02/18 06:00 Labs: Laboratory Results - last 24 hr 07/02/18 07/02/18 07/02/18 06:00 06:00 06:00 WBC 7.3 RBC 3.88 L Hgb 11.2 L Hct 34.3 L MCV 88.2 MCH 28.7 MCHC 32.6 L RDW 16.7 H Plt Count 155 MPV 7.6 Neut % (Auto) 65.0 Lymph % (Auto) 18.6 L [place] % (Auto) 8.7 Eos % (Auto) 6.4 H Baso % (Auto) 1.3 Neut # (Auto) 4.8 Lymph # (Auto) 1.4 [place] # (Auto) 0.6 Eos # (Auto) 0.5 Baso # (Auto) 0.1 PT 17.6 H INR 1.5 APTT 38.8 H Sodium 133 Potassium 4.4 Chloride 104 Carbon Dioxide 19 L Anion Gap 14 BUN 35 H Creatinine 1.6 H Est GFR ( Amer) 51 Est GFR (Non-Af Amer) 42 Random Glucose 86 Calcium 8.7 Total Bilirubin 1.2 AST 51 ALT 49 Alkaline Phosphatase 70 Troponin I < 0.0120 NT-Pro-B Natriuret Pep 6030 H Total Protein 7.6 Albumin 3.8 Globulin 3.8 Albumin/Globulin Ratio 1.0 Urine Color Urine Clarity Urine pH Ur Specific [place] Urine Protein Urine Glucose (UA) Urine Ketones Urine Blood Urine Nitrate Urine Bilirubin Urine Urobilinogen Ur Leukocyte Esterase Urine RBC (Auto) Urine Microscopic WBC Urine Bacteria 07/02/18 08:10 WBC RBC Hgb Hct MCV MCH MCHC RDW Plt Count MPV Neut % (Auto) Lymph % (Auto) [place] % (Auto) Eos % (Auto) Baso % (Auto) Neut # (Auto) Lymph # (Auto) [place] # (Auto) Eos # (Auto) Baso # (Auto) PT INR APTT Sodium Potassium Chloride Carbon Dioxide Anion Gap BUN Creatinine Est GFR ( Amer) Est GFR (Non-Af Amer) Random Glucose Calcium Total Bilirubin AST ALT Alkaline Phosphatase Troponin I NT-Pro-B Natriuret Pep Total Protein Albumin Globulin Albumin/Globulin Ratio Urine Color Yellow Urine Clarity Slighty-cloudy Urine pH 6.0 Ur Specific [place] 1.008 Urine Protein Negative Urine Glucose (UA) Neg Urine Ketones Negative Urine Blood Negative Urine Nitrate Positive H Urine Bilirubin Negative Urine Urobilinogen 0.2-1.0 Ur Leukocyte Esterase Large Urine RBC (Auto) 3 Urine Microscopic WBC 42 H Urine Bacteria Few H
[2018-07-02] MEDS ORDERED: Metoprolol 1 mg/ml Inj ONE (10:39)
--- NOTE | 2018-07-02 11:20 | CARD ---
APPROVED REPORT Date of service: 07/02/2018 EKG Measurement Heart [id number] <Conclusion> Demand ventricular-paced rhythm with occasional premature ventricular complexes Abnormal ECG
--- NOTE | 2018-07-02 11:33 | CP.PCM.CON ---
History of Present Illness - History of Present Illness History of Present Illness: This 78 year old male with past H/O COPD, CHF with rLVEF, chronic a fib, CAD with prior CABG and CKD was brought to the emergency room because of SOB with wheezing which began the day [employer]. He had been taking all his medications at home when these symptoms developed w/o fever or chills and no chest pain. He did complain of abdominal discomfort and LBP, but no vomiting, orthopnea or dependant edema. He is not compliant with a low sodium diet. About three months ago he was treated for pneumonia with a RUL infiltrate and also had a PPM implanted subsequently about two months ago because of tachy/nasim arrhythmia. Review of Systems - Review of Systems All systems: reviewed and no additional remarkable complaints except - Respiratory Respiratory: As Per HPI - Gastrointestinal Gastrointestinal: As Per HPI - Musculoskeletal Musculoskeletal: Back Pain Past Patient History - Past Medical History & Family History Past Medical History?: Yes - Past Social History Smoking Status: Former Smoker Chewing Tobacco Use: No Cigar Use: No Alcohol: None Drugs: Denies Home Situation {Lives}: With Family - CARDIAC Hx Atrial Fibrillation: Yes Hx Cardia Arrhythmia: Yes (tachy/nasim) Hx Congestive Heart Failure: Yes Hx Heart Attack: Yes (1999) Hx Hypercholesterolemia: Yes Hx Hypertension: Yes Hx Pacemaker: Yes - PULMONARY Hx Bronchitis: Yes Hx Chronic Obstructive Pulmonary Disease (COPD): Yes Hx Pneumonia: Yes () - NEUROLOGICAL Hx Neurological Disorder: No Hx Transient Ischemic Attacks (TIA): No - HEENT Hx HEENT Problems: Yes - RENAL Hx Chronic Kidney Disease: Yes Hx Pyelonephritis: Yes (2016) - ENDOCRINE/METABOLIC Hx Diabetes Mellitus Type 2: Yes - HEMATOLOGICAL/ONCOLOGICAL Hx Blood Disorders: No Hx Human Immunodeficiency Virus (HIV): No - INTEGUMENTARY Hx Dermatological Problems: No - MUSCULOSKELETAL/RHEUMATOLOGICAL Hx Arthritis: Yes Hx Fractures: No Hx Osteoporosis: Yes - GASTROINTESTINAL Hx Gastrointestinal Disorders: No - GENITOURINARY/GYNECOLOGICAL Hx Genitourinary Disorders: No - PSYCHIATRIC Hx Psychophysiologic Disorder: No Hx Substance Use: No - SURGICAL HISTORY Hx Coronary Artery Bypass Graft: Yes (1999) Other/Comment: ureteral stent 2016 - ANESTHESIA Hx Anesthesia: Yes Hx Anesthesia Reactions: No Hx Malignant Hyperthermia: No Meds Allergies/Adverse Reactions: Allergies Allergy/AdvReac Type Severity Reaction Status Date / Time azithromycin Allergy ITCHING Verified 07/02/18 05:10 moxifloxacin [From Avelox] Allergy ITCHING Verified 07/02/18 05:10 - Medications Medications: Current Medications Ceftriaxone Sodium 1,000 mg/ (PED IV SYRINGE) 0 mls @ 100 mls/hr IVPB DAILY ANTONY; Protocol Physical Exam - Additional Findings Additional findings: Thin, elderly male in no acute distress. No palpable lymphadenopathy. Pharynx pink and moist w/o exudate. Nares patent bilaterally w/o bleeding. Neck is supple and trachea midline. No dullness on chest percussion, equal expansion. Breath sounds are diminished bilaterally w/o audible wheeze at this time. Medium rales were heard in both lower lobes posteriorly. No bronchial breath sounds or egophony. Sternotomy scar well healed, PPM in left infraclavicular area. Heart sounds are distant, tachycardic, systolic murmur at apex. Abdomen is soft and non-tender with + bowel sounds. No dependant edema, no cyanosis, no calf tenderness. Extremities are warm to touch. Results - Vital Signs Recent Vital Signs: Last Vital Signs Temp 97.8 F 07/02/18 08:33 Pulse 126 H 07/02/18 10:44 Resp 24 07/02/18 08:01 BP 105/67 07/02/18 10:44 Pulse Ox 100 07/02/18 08:01 - Labs Result Diagrams: 07/02/18 06:00 07/02/18 06:00 Labs: Laboratory Results - last 24 hr 07/02/18 07/02/18 07/02/18 06:00 06:00 06:00 WBC 7.3 RBC 3.88 L Hgb 11.2 L Hct 34.3 L MCV 88.2 MCH 28.7 MCHC 32.6 L RDW 16.7 H Plt Count 155 MPV 7.6 Neut % (Auto) 65.0 Lymph % (Auto) 18.6 L [place] % (Auto) 8.7 Eos % (Auto) 6.4 H Baso % (Auto) 1.3 Neut # (Auto) 4.8 Lymph # (Auto) 1.4 [place] # (Auto) 0.6 Eos # (Auto) 0.5 Baso # (Auto) 0.1 PT 17.6 H INR 1.5 APTT 38.8 H Sodium 133 Potassium 4.4 Chloride 104 Carbon Dioxide 19 L Anion Gap 14 BUN 35 H Creatinine 1.6 H Est GFR ( Amer) 51 Est GFR (Non-Af Amer) 42 Random Glucose 86 Calcium 8.7 Total Bilirubin 1.2 AST 51 ALT 49 Alkaline Phosphatase 70 Troponin I < 0.0120 NT-Pro-B Natriuret Pep 6030 H Total Protein 7.6 Albumin 3.8 Globulin 3.8 Albumin/Globulin Ratio 1.0 Urine Color Urine Clarity Urine pH Ur Specific [place] Urine Protein Urine Glucose (UA) Urine Ketones Urine Blood Urine Nitrate Urine Bilirubin Urine Urobilinogen Ur Leukocyte Esterase Urine RBC (Auto) Urine Microscopic WBC Urine Bacteria 07/02/18 08:10 WBC RBC Hgb Hct MCV MCH MCHC RDW Plt Count MPV Neut % (Auto) Lymph % (Auto) [place] % (Auto) Eos % (Auto) Baso % (Auto) Neut # (Auto) Lymph # (Auto) [place] # (Auto) Eos # (Auto) Baso # (Auto) PT INR APTT Sodium Potassium Chloride Carbon Dioxide Anion Gap BUN Creatinine Est GFR ( Amer) Est GFR (Non-Af Amer) Random Glucose Calcium Total Bilirubin AST ALT Alkaline Phosphatase Troponin I NT-Pro-B Natriuret Pep Total Protein Albumin Globulin Albumin/Globulin Ratio Urine Color Yellow Urine Clarity Slighty-cloudy Urine pH 6.0 Ur Specific [place] 1.008 Urine Protein Negative Urine Glucose (UA) Neg Urine Ketones Negative Urine Blood Negative Urine Nitrate Positive H Urine Bilirubin Negative Urine Urobilinogen 0.2-1.0 Ur Leukocyte Esterase Large Urine RBC (Auto) 3 Urine Microscopic WBC 42 H Urine Bacteria Few H Assessment & Plan (1) Community acquired pneumonia Assessment and Plan: Would begin therapy empirically with ceftriaxone (can't rule out pneumonia at this point). He does have a prior allergy to azithromycin and moxifloxacin so I will use the above only for now. Repeat his chest x-ray in the morning tomorrow: if the infiltrate has cleared than consider this as CHF only. If the infiltrate persists tomorrow morning admit and continue antibiotic therapy. Status: Acute Priority: High (2) COPD (chronic obstructive pulmonary disease) Status: Chronic Priority: High (3) CHF exacerbation Status: Suspected Priority: High (4) Chronic kidney disease, stage III (moderate) Status: Chronic Priority: High (5) Diabetes type 2, controlled Status: Chronic Priority: High - Date & Time Date: 07/02/18 Time: 11:29
[2018-07-02] MEDS ORDERED: cefTRIAXone (Rocephin) 1 gm Inj ONE (12:43)
[2018-07-02] MEDS ORDERED: Patient's Own Med (Multivitamin [Multivitamins] 1 TAB) PO SCH (13:45)
[2018-07-02] MEDS ORDERED: RIVAROXABAN 20 MG PO SCH (13:45)
[2018-07-02] MEDS: Latanoprost 0.005% Opht SOUTION OU SCH (21:15)
[2018-07-02] MEDS: Multivitamin With Minerals Tab PO SCH (21:15)
[2018-07-03 05:56] VITALS: TEMP 97.7
[2018-07-03] MEDS ORDERED: [UNRECOGNIZED DRUG - OTHER] BOTHEYES SCH (09:00)
--- NOTE | 2018-07-03 09:05 | CP.PCM.PN ---
Subjective - Date & Time of Evaluation Date of Evaluation: 07/03/18 Time of Evaluation: 09:00 - Subjective Subjective: Seen on morning rounds in the telemetry unit. Interim events reviewed, vital signs remain stable. He has been afebrile since presentation. Seated up in bed, appears comfortable. Repeat chest x-ray is pending. On exam he appears comfortable at rest. No dependant edema or cyanosis. Neck is supple and trachea midline. No dullness on chest percussion. Breath sounds are diminished bilaterally. Dry rales, late inspiratory, are present in the lung bases, more left than right. No audible wheezes or bronchial breath sounds. Repeat CXR and CBC this morning. Remains on ceftriaxone for the present time. Will discuss with cardiology. Objective - Vital Signs/Intake and Output Vital Signs (last 24 hours): Temp Pulse Resp BP Pulse Ox 97.7 F 113 H 18 114/84 100 07/03/18 08:00 07/03/18 08:00 07/03/18 08:00 07/03/18 08:00 07/03/18 08:00 Intake and Output: 07/02/18 07/03/18 23:59 11:59 Output Total 900 Balance -900 - Medications Medications: Current Medications Acetaminophen (Tylenol 325mg Tab) 650 mg PO Q6 PRN PRN Reason: Pain, moderate (4-7) Atorvastatin Calcium (Lipitor) 10 mg PO DAILY [facility] Last Admin: 07/02/18 14:49 Dose: 10 mg Enalapril Maleate (Vasotec) 5 mg PO DAILY [facility] Last Admin: 07/02/18 14:59 Dose: 5 mg Glipizide (Glucotrol) 5 mg PO ACB [facility] Ceftriaxone Sodium 1 gm/ (Sodium Chloride) 100 mls @ 100 mls/hr IVPB DAILY [facility]; Protocol Last Admin: 07/02/18 12:53 Dose: 100 mls/hr Latanoprost (Xalatan Opht) 1 drop OU DAILY [facility] Last Admin: 07/02/18 21:15 Dose: 1 drop Metoprolol Tartrate (Lopressor) 150 mg PO Q12 ANTONY Last Admin: 07/02/18 21:14 Dose: 150 mg Multivitamins/Minerals (Therapeutic-M Tab) 1 tab PO DAILY [facility] Last Admin: 07/02/18 21:15 Dose: 1 tab Rivaroxaban (Xarelto) 20 mg PO DAILY@1700 ANTONY Last Admin: 07/02/18 15:50 Dose: 20 mg - Labs Labs: 07/02/18 06:00 07/02/18 06:00 PT 17.6 Seconds (9.8-13.1) H 07/02/18 06:00 INR 1.5 07/02/18 06:00 APTT 38.8 Seconds (25.6-37.1) H 07/02/18 06:00 Assessment and Plan (1) Community acquired pneumonia Status: Acute (2) COPD (chronic obstructive pulmonary disease) Status: Chronic (3) CHF exacerbation Status: Suspected (4) Chronic kidney disease, stage III (moderate) Status: Chronic (5) Diabetes type 2, controlled Status: Chronic
[2018-07-03] MEDS: Multivitamin With Minerals Tab PO SCH (09:20)
[2018-07-03] MEDS: Latanoprost 0.005% Opht SOUTION OU SCH (09:21)
--- NOTE | 2018-07-03 10:22 | CP.PCM.PN ---
Subjective - Date & Time of Evaluation Date of Evaluation: 07/03/18 Time of Evaluation: 09:40 - Subjective Subjective: Reports very mild dyspnea during the night when he attempted to go to the bathroom. Otherwise he has been fairly comfortable and denies any shortness of breath at rest. Jugular venous pressure was not elevated and there were minimal rales at both bases. No pedal edema noted. Telemetry shows persistent atrial fibrillation with mostly a VVI paced rhythm. Blood pressure was 120/[address] Marshall Complete metabolic profile and chest x-ray awaited. Will give an additional dose of intravenous furosemide If the chest x-ray findings are satisfactory will send patient home. Objective - Vital Signs/Intake and Output Vital Signs (last 24 hours): Temp Pulse Resp BP Pulse Ox 97.7 F 113 H 18 114/84 100 07/03/18 08:00 07/03/18 08:00 07/03/18 08:00 07/03/18 08:00 07/03/18 08:00 - Medications Medications: Current Medications Acetaminophen (Tylenol 325mg Tab) 650 mg PO Q6 PRN PRN Reason: Pain, moderate (4-7) Atorvastatin Calcium (Lipitor) 10 mg PO DAILY [facility] Last Admin: 07/03/18 09:15 Dose: 10 mg Enalapril Maleate (Vasotec) 5 mg PO DAILY [facility] Last Admin: 07/02/18 14:59 Dose: 5 mg Furosemide (Lasix) 40 mg IVP ONCE ONE Stop: 07/03/18 10:13 Glipizide (Glucotrol) 5 mg PO ACB [facility] Last Admin: 07/03/18 09:14 Dose: 5 mg Ceftriaxone Sodium 1 gm/ (Sodium Chloride) 100 mls @ 100 mls/hr IVPB DAILY [facility]; Protocol Last Admin: 07/02/18 12:53 Dose: 100 mls/hr Latanoprost (Xalatan Opht) 1 drop OU DAILY [facility] Last Admin: 07/03/18 09:21 Dose: 1 drop Metoprolol Tartrate (Lopressor) 150 mg PO Q12 [facility] Last Admin: 07/02/18 21:14 Dose: 150 mg Multivitamins/Minerals (Therapeutic-M Tab) 1 tab PO DAILY [facility] Last Admin: 07/03/18 09:20 Dose: 1 tab Rivaroxaban (Xarelto) 20 mg PO DAILY@1700 [facility] Last Admin: 07/02/18 15:50 Dose: 20 mg - Labs Labs: 07/02/18 06:00 07/02/18 06:00 PT 17.6 Seconds (9.8-13.1) H 07/02/18 06:00 INR 1.5 07/02/18 06:00 APTT 38.8 Seconds (25.6-37.1) H 07/02/18 06:00
[2018-07-03 11:09] LABS: HEMOGLOBIN 12.8 g/dL (12.0-18.0); MEAN CELL VOLUME 88.6 fl (80.0-94.0); MEAN CORPUSCULAR HEMOGLOBIN 28.7 pg (27.0-31.0); MEAN CORPUSCULAR HGB CONC 32.4 g/dL (33.0-37.0); RBC 4.44 Mil/uL (4.40-5.90); WHITE BLOOD COUNT 6.9 K/uL (4.8-10.8)
[2018-07-03 11:20] LABS: ALB/GLOB RATIO 0.9 (1.0-2.1); ALBUMIN 3.7 g/dL (3.5-5.0); CALCIUM 8.8 mg/dL (8.4-10.2)
--- NOTE | 2018-07-03 14:15 | RAD ---
Date of service: 07/03/2018 HISTORY: Shortness of breath COMPARISON: 07/02/2018 TECHNIQUE: Chest PA and lateral FINDINGS: LINES AND TUBES: None. LUNG AND PLEURA: The lungs are well inflated. There is interval improved aeration in the lungs with residual mild pulmonary venous congestion. There is improving right upper lobe airspace disease. No pleural effusion or pneumothorax. HEART AND MEDIASTINUM: There is moderate cardiomegaly. Status post CABG. There is stable position of left-sided unipolar permanent pacing device. No aortic atherosclerotic calcifications present. The hilar and mediastinal contours are within normal limits. SKELETAL STRUCTURES: The bony structures are within normal limits for the patient's age. VISUALIZED UPPER ABDOMEN: Normal. OTHER FINDINGS: None. IMPRESSION: Interval significant improvement in pulmonary venous congestion and improving right upper lobe atelectasis/pneumonia. Follow-up after medical management is recommended to ensure complete resolution.
[2018-07-03 15:36] VITALS: BP 105/66; PULSE 61; RESP 20; O2SAT 99
== END 2018-07-03 18:18 | disposition home or self-care (01) ==
LOC: H.ER 04:46 → H.ERHOLD 06:30 → H.TEL 16:49
PROVIDERS: ADMIT Internal Medicine Cardiovascular Disease; ATTEND Internal Medicine Cardiovascular Disease
DX: J18.9 Pneumonia, unspecified organism (principal); I48.2 Chronic atrial fibrillation; I13.0 Hypertensive heart and chronic kidney disease with heart failure and stage 1 through stage 4 chronic kidney disease, or unspecified chronic kidney disease; I50.22 Chronic systolic (congestive) heart failure; N18.3 Chronic kidney disease, stage 3 (moderate); E11.22 Type 2 diabetes mellitus with diabetic chronic kidney disease; I25.10 Atherosclerotic heart disease of native coronary artery without angina pectoris; I48.1 Persistent atrial fibrillation; I34.0 Nonrheumatic mitral (valve) insufficiency; J44.0 Chronic obstructive pulmonary disease with (acute) lower respiratory infection; M81.0 Age-related osteoporosis without current pathological fracture; E78.5 Hyperlipidemia, unspecified; E78.00 Pure hypercholesterolemia, unspecified; D64.9 Anemia, unspecified; I25.2 Old myocardial infarction; Z95.1 Presence of aortocoronary bypass graft; M19.90 Unspecified osteoarthritis, unspecified site; Z95.0 Presence of cardiac pacemaker; Z87.891 Personal history of nicotine dependence; Z87.01 Personal history of pneumonia (recurrent); Z79.01 Long term (current) use of anticoagulants; Z88.1 Allergy status to other antibiotic agents; Z79.84 Long term (current) use of oral hypoglycemic drugs
CPT/HCPCS: 36415; 71045; 71046; 80053; 81003; 82948; 83880; 84484; 85025; 85027; 85610; 85730; 86738; 87086; 87181; 87449; 93005; 96365; 96375; 96376; 99285; G0378; J0696; J1940

== ENCOUNTER 2018-07-04 00:32 | Inpatient (IN) | payer MEDICARE ==
[2018-07-04] MEDS ORDERED: Sodium Chloride 0.9% 50 ML IV ONE (02:02)
[2018-07-04] MEDS ORDERED: Iodixanol 320 MG/ML 100 ML BOTTLE IV ONE (02:02)
[2018-07-04 02:06] LABS: BASO # 0.1 K/uL (0.0-0.2); BASO % 0.9 % (0.0-2.0); EOS # 0.1 K/uL (0.0-0.7); EOS % 1.1 % (0.0-4.0); HEMOGLOBIN 12.5 g/dL (12.0-18.0); LYMPH # 0.9 K/uL (1.0-4.3); LYMPH % 9.4 % (20.0-40.0); MEAN CELL VOLUME 88.2 fl (80.0-94.0); MEAN CORPUSCULAR HEMOGLOBIN 28.7 pg (27.0-31.0); MEAN CORPUSCULAR HGB CONC 32.6 g/dL (33.0-37.0); MEAN PLATELET VOLUME 7.5 fl (7.2-11.7); MONO # 0.4 K/uL (0.0-0.8); MONO % 3.7 % (0.0-10.0); NEUT # 8.2 K/uL (1.8-7.0); NEUT % 84.9 % (50.0-75.0); NRBC % 0.1 % (0.0-0.0); PLATELET COUNT 198 K/uL (130-400); RBC 4.36 Mil/uL (4.40-5.90); RED CELL DISTRIBUTION WIDTH 16.8 % (11.5-14.5); WHITE BLOOD COUNT 9.6 K/uL (4.8-10.8)
[2018-07-04] MEDS ORDERED: Sodium Chloride 0.9% 1,000 ML IV STA (02:16)
[2018-07-04 02:26] LABS: ALBUMIN 4.4 g/dL (3.5-5.0); ALT/SGPT 40 U/L (21-72); AST/SGOT 40 U/L (17-59); BLOOD UREA NITROGEN 40 mg/dl (9-20); CALCIUM 9.5 mg/dL (8.4-10.2); GFR NON-AFRICAN AMERICAN 36; LIPASE 602 U/L (23-300)
[2018-07-04 03:11] LABS: EOSINOPHIL 2 % (0-7); LYMPHOCYTE 8 % (20-50); MONOCYTE 4 % (0-10); NEUTROPHIL 86 % (42-75); PLATELET ESTIMATE NORMAL (NORMAL); TOTAL CELLS COUNTED 100
--- NOTE | 2018-07-04 04:41 | ED PDOC ---
HPI: Abdomen Time Seen by Provider: 07/04/18 01:11 Chief Complaint (Nursing): Abdominal Pain Chief Complaint (Provider): Abdominal Pain History Per: Patient History/Exam Limitations: no limitations Onset/Duration Of Symptoms: Days (x1) Location Of Pain/Discomfort: Diffuse Associated Symptoms: denies: Vomiting, Chest Pain Additional Complaint(s): 78 years old male with histroy of CHF, CABG and CAD presents to ER for evaluation of increased abdominal pain and swelling onset 12 hours ago. Patient was recently admitted to the hospital and discharge yesterday for CHF exacerbation. He states he has normal bowel movement and able to pass gas. P atient denies vomiting, chest pain or shortness of breath. PMD: Guillermo Onofre V Past Medical History Reviewed: Historical Data, Nursing Documentation, Vital Signs Vital Signs: Last Vital Signs Temp 98.0 F 07/04/18 01:08 Pulse 61 07/04/18 01:08 Resp 18 07/04/18 01:08 BP 129/71 07/04/18 01:08 Pulse Ox 99 07/04/18 01:08 Primary Care Provider: Guillermo Onofre V - Medical History PMH: Arthritis, Atrial Fibrillation, Bronchitis, CAD, Cardia Arrhythmia (tachy/nasim), CHF, COPD, Diabetes, HTN, Hypercholesterolemia, Hyperlipidemia, Osteoporosis, Pneumonia (), Chronic Kidney Disease Denies: Anemia, Colonic Polyps, Fractures, HIV, TIA - Surgical History Surgical History: CABG (1999), Endoscopy, Pacemaker - Family History Family History: States: Unknown Family Hx - Immunization History Hx Tetanus Toxoid Vaccination: No - Home Medications Home Medications: Ambulatory Orders Medication Instructions Recorded Cholecalciferol (Vitamin D3) 400 units PO DAILY 10/08/16 [Vitamin D-400] Enalapril Maleate [Vasotec] 5 mg PO DAILY 10/08/16 Glimepiride [amaRYL] 2 mg PO DAILY 10/08/16 Multivitamin [Multivitamins] 1 tab PO DAILY 10/08/16 Furosemide [Lasix] 20 mg PO DAILY 04/23/17 Cyanocobalamin/Salcaprozat Sod 1 tab PO DAILY 04/09/18 [Eligen B12 Tablet] Latanaprost 1 drop BOTHEYES DAILY 04/09/18 Rivaroxaban [Xarelto] 20 mg PO DAILY 02/13/19 Acetaminophen [Tylenol 325mg tab] 650 mg PO PRN PRN 05/24/18 Atorvastatin [Lipitor] 10 mg PO DAILY tab 05/26/18 Metoprolol Tartrate [Lopressor] 150 mg PO Q12 tab 05/26/18 Cefdinir [Omnicef] 300 mg PO Q12 #14 cap 07/03/18 - Allergies Allergies/Adverse Reactions: Allergies Allergy/AdvReac Type Severity Reaction Status Date / Time azithromycin Allergy ITCHING Verified 07/04/18 01:07 moxifloxacin [From Avelox] Allergy ITCHING Verified 07/04/18 01:07 Review of Systems ROS Statement: Except As Marked, All Systems Reviewed And Found Negative Cardiovascular: Negative for: Chest Pain Respiratory: Negative for: Shortness of Breath Gastrointestinal: Positive for: Abdominal Pain (with swelling). Negative for: Vomiting Physical Exam - Reviewed Nursing Documentation Reviewed: Yes Vital Signs Reviewed: Yes - Physical Exam Appears: Positive for: Well, No Acute Distress Head Exam: Positive for: ATRAUMATIC, NORMOCEPHALIC Skin: Positive for: Normal Color, Warm, Dry Eye Exam: Positive for: Normal appearance, EOMI, PERRL ENT: Positive for: Normal ENT Inspection Neck: Positive for: Normal, Painless ROM, Supple Cardiovascular/Chest: Positive for: Regular Rate, Rhythm. Negative for: Murmur Respiratory: Positive for: Normal Breath Sounds. Negative for: Respiratory Distress Gastrointestinal/Abdominal: Positive for: Tenderness (Mild diffused tenderness to palpation). Negative for: Distended, Guarding, Rebound Back: Positive for: Normal Inspection. Negative for: L CVA Tenderness, R CVA Tenderness Extremity: Positive for: Normal ROM. Negative for: Pedal Edema, Swelling Neurological/Psych: Positive for: Awake, Alert, Oriented (x3) - Laboratory Results Result Diagrams: 07/04/18 11:35 07/04/18 11:35 Lab Results: Troponin I < 0.0120 ng/mL (0.00-0.120) 07/04/18 01:54 Total Bilirubin 0.7 mg/dl (0.2-1.3) 07/04/18 01:54 AST 40 U/L (17-59) 07/04/18 01:54 ALT 40 U/L (21-72) 07/04/18 01:54 Alkaline Phosphatase 77 U/L (38-126) 07/04/18 01:54 Total Protein 8.7 G/DL (6.3-8.2) H 07/04/18 01:54 Albumin 4.4 g/dL (3.5-5.0) 07/04/18 01:54 Globulin 4.3 gm/dL (2.2-3.9) H 07/04/18 01:54 Albumin/Globulin Ratio 1.0 (1.0-2.1) 07/04/18 01:54 Lipase 602 U/L (23-300) H 07/04/18 01:54 - ECG O2 Sat by Pulse Oximetry: 99 (RA) Pulse Ox Interpretation: Normal Medical Decision Making Medical Decision Making: Time: 0124 A/P: Possible mesenteric ischemia vs. diverticulitis vs gallbladder disease vs colitis --Labs --Morphine --CTA Abdomen --Gallbladder US 447 CTA Abdomen and pelvis findings: Moderate cardiomegaly. Right upper lobe subsegmental airspace groundglass densities. Subsegmental atelectasis and/or pneumonia. Bilateral basilar groundglass densities of the lungs. Subsegmental atelectasis and/or pneumonia. Moderate central pulmonary venous congestion. Distended gallbladder. Gallstones at the neck of the gallbladder. Diffuse thickening of the wall of the gallbladder. Sonographic evaluation is suggested to exclude developing acute inflammatory pathology of the gallbladder. Dilated extrahepatic biliary tree. The common bile duct measures 11.9 mm. Mild prostatomegaly. Mild diffuse thickening of the bladder. Mild narrowing of the origin of the celiac artery. Moderate narrowing of the origin of the superior and inferior mesenteric arteries. No CT evidence of acute arterial occlusion. No CT evidence of mesenteric ischemia. Reversed S-shaped scoliosis. Moderate diffuse spondylosis. The liver is of uniform attenuation without mass or defect. The spleen is normal. The pancreas is of normal contour and attenuation characteristics. There is no evidence of adrenal mass. Both kidneys demonstrate prompt and equal nephrograms. The kidneys are normal in size, shape and configuration. There is no evidence of renal or ureteral mass. No renal or ureteral calculi are identified. There is no hydroureter or hydronephrosis. No evidence for appendicitis. There is no bowel wall thickening. No evidence for small or large bowel obstruction. There is no evidence of abdominal ascites or lymphadenopathy. There is no evidence of intrinsic or extrinsic bladder mass. There is no pelvic ascites or lymphadenopathy. There are no pleural effusions. The bony structures are free of lytic or blastic lesions. IMPRESSION: Moderate cardiomegaly. Right upper lobe subsegmental airspace groundglass densities. Subsegmental atelectasis and/or pneumonia. Bilateral basilar groundglass densities of the lungs. Subsegmental atelectasis and/or pneumonia. Moderate central pulmonary venous congestion. Distended gallbladder. Gallstones at the neck of the gallbladder. Diffuse thickening of the wall of the gallbladder. Sonographic evaluation is suggested to exclude developing acute inflammatory pathology of the gallbladder. Dilated extrahepatic biliary tree. The common bile duct measures 11.9 mm. Mild prostatomegaly. Mild diffuse thickening of the bladder. Mild narrowing of the origin of the celiac artery. Moderate narrowing of the origin of the superior and inferior mesenteric arteries. No CT evidence of acute arterial occlusion. No CT evidence of mesenteric ischemia. Reversed S-shaped scoliosis. Moderate diffuse spondylosis. 0505 Gallbladder US Findings: Liver is normal in size measuring 14.3 cm. Impacted gallstones at the neck of the gallbladder. Diffuse thickening of the gallbladder. Distended gallbladder. Dilated common bile duct measuring 1.2 cm. Limited visualization of the pancreas secondary to gaseous bowel distention. Unremarkable IVC. Nonaneurysmal aorta. Mild atrophy of the right kidney which is otherwise, unremarkable. Impression: Cholelithiasis. Acute calculous cholecystitis. Dilated common bile duct. Spoke with Dr. Kerns regarding the findings, agrees to consult. Spoke with Dr. Onofre who will see the patient this AM and will admit patient. Dr. Rhys Wagner, assembler surgical garment, at bedside evaluating patient. Explained results to patient and family, plan discussed. --- Scribe Attestation: Documented by Chanelle Casper, acting as a scribe for Leonard Nguyen MD. Provider Scribe Attestation: All medical record entries made by the Scribe were at my direction and personally dictated by me. I have reviewed the chart and agree that the record accurately reflects my personal performance of the history, physical exam, medical decision making, and the department course for this patient. I have also personally directed, reviewed, and agree with the discharge instructions and disposition. Disposition - Clinical Impression Clinical Impression: Cholecystitis, UTI (urinary tract infection) Counseled Patient/Family Regarding: Studies Performed, Diagnosis - Disposition Disposition Time: 05:00 Condition: FAIR
[2018-07-04 04:51] LABS: URINE BACTERIA RARE (<OCC); URINE BILIRUBIN NEGATIVE (NEGATIVE); URINE BLOOD LARGE (NEGATIVE); URINE CLARITY CLOUDY (Clear); URINE COLOR YELLOW (YELLOW); URINE GLUCOSE (UA) NEG (NEGATIVE); URINE LEUKOCYTE ESTERASE LARGE Leu/uL (Negative); URINE PROTEIN 30 mg/dL (NEGATIVE); URINE UROBILINOGEN 0.2-1.0 mg/dL (0.2-1.0); WBC CLUMPS FEW /hpf
[2018-07-04] MEDS ORDERED: Piperacillin/Tazobact 3.375 GM in Sodium Chloride 0.9% 100 ML IVPB STA (05:08)
--- NOTE | 2018-07-04 05:48 | CP.PCM.CON ---
<Rhys Wagner - Last Filed: 07/04/18 08:47> History of Present Illness - History of Present Illness History of Present Illness: General Surgery Consult for Dr. Kerns Reason for consult: RUQ abdominal pain 78 M with PMH that includes CHF with EF 25%, CAD s/p CABG, sick sinus syndrome s/p pacemaker, HTN, DM presents to [facility] for RUQ abdominal pain. Patient seen and evaluated in the ED. Patient speaks Gudjrati and daughter was at bedside who provided history. Patient was recently admitted to the hospital and discharge yesterday for CHF/COPD exacerbation and Pneumonia. Patient went home and developed the pain 2 hours later. Patient called daughter, which she instructed him to drink jannet tricia and relax to see if it was gas pains. Pain did not go away and worsened so she decided to bring him to the ED. He states he has normal bowel movement and able to pass gas. He admits nausea but denies vomiting. Nothing specifically alleviates or aggravates his symptoms. Denies fever/chills, chest pain, shortness of breath, palpitations, diarrhea, constipation, incontinence, numbness/tingling, urinary symptoms. PMD: Guillermo Onofre V PMH: Arthritis, Atrial Fibrillation, Bronchitis, CAD s/p CABG, sick sinus syndrome, CHF with EF 25%, COPD, Diabetes, HTN, Hypercholesterolemia, Hyperlipidemia, Osteoporosis, Pneumonia (), Chronic Kidney Disease PSH: CABG (1999), Endoscopy, Pacemaker, knee surgery x 2 ALL: Azithromycin, moxifloxacin Review of Systems - Review of Systems All systems: reviewed and no additional remarkable complaints except (as per HPI) Past Patient History - Past Medical History & Family History Past Medical History?: Yes - Past Social History Smoking Status: Former Smoker - CARDIAC Hx Atrial Fibrillation: Yes Hx Cardia Arrhythmia: Yes (tachy/nasim) Hx Congestive Heart Failure: Yes Hx Hypercholesterolemia: Yes Hx Hypertension: Yes Hx Pacemaker: Yes - PULMONARY Hx Bronchitis: Yes Hx Chronic Obstructive Pulmonary Disease (COPD): Yes Hx Pneumonia: Yes () - NEUROLOGICAL Hx Transient Ischemic Attacks (TIA): No - HEENT Hx HEENT Problems: Yes - RENAL Hx Chronic Kidney Disease: Yes - ENDOCRINE/METABOLIC Hx Diabetes Mellitus Type 2: Yes - HEMATOLOGICAL/ONCOLOGICAL Hx Anemia: No Hx Human Immunodeficiency Virus (HIV): No - INTEGUMENTARY Hx Dermatological Problems: No - MUSCULOSKELETAL/RHEUMATOLOGICAL Hx Arthritis: Yes Hx Fractures: No Hx Osteoporosis: Yes - GASTROINTESTINAL Hx Gastrointestinal Disorders: No - GENITOURINARY/GYNECOLOGICAL Hx Genitourinary Disorders: No - PSYCHIATRIC Hx Psychophysiologic Disorder: No Hx Substance Use: No - SURGICAL HISTORY Hx Coronary Artery Bypass Graft: Yes (1999) - ANESTHESIA Hx Anesthesia: Yes Hx Anesthesia Reactions: No Hx Malignant Hyperthermia: No Meds Allergies/Adverse Reactions: Allergies Allergy/AdvReac Type Severity Reaction Status Date / Time azithromycin Allergy ITCHING Verified 07/04/18 01:07 moxifloxacin [From Avelox] Allergy ITCHING Verified 07/04/18 01:07 - Medications Medications: Current Medications Sodium Chloride (Sodium Chloride 0.9%) 1,000 mls @ 100 mls/hr IV .Q10H STA Stop: 07/04/18 12:15 Last Admin: 07/04/18 02:24 Dose: 100 mls/hr Piperacillin Sod/Tazobactam (Sod 3.375 gm/ Sodium Chloride) 100 mls @ 100 mls/hr IVPB STAT STA; Protocol Stop: 07/04/18 06:07 Physical Exam - Constitutional Appears: No Acute Distress, Chronically Ill - Head Exam Head Exam: ATRAUMATIC, NORMOCEPHALIC - Eye Exam Eye Exam: EOMI, Normal appearance Pupil Exam: PERRL - ENT Exam ENT Exam: Mucous Membranes Dry - Neck Exam Neck exam: Positive for: Full Rom - Respiratory Exam Respiratory Exam: NORMAL BREATHING PATTERN - Cardiovascular Exam Cardiovascular Exam: REGULAR RHYTHM - GI/Abdominal Exam GI & Abdominal Exam: Normal Bowel Sounds, Soft, Tenderness (RUQ). absent: Distended, Firm, Guarding, Hernia, Mass, Rebound, Rigid Additional comments: -Lassiter's sign - Extremities Exam Extremities exam: Positive for: normal capillary refill. Negative for: calf tenderness - Back Exam Back exam: absent: CVA tenderness (L), CVA tenderness (R) - Neurological Exam Neurological exam: Alert, CN II-XII Intact, Oriented x3 - Psychiatric Exam Psychiatric exam: Normal Affect, Normal Mood - Skin Skin Exam: Dry, Intact, Warm Additional comments: pacemaker left chest, vertical sternal scar from cardiac bypass Results - Vital Signs Recent Vital Signs: Last Vital Signs Temp 97.7 F 07/04/18 05:30 Pulse 86 07/04/18 05:30 Resp 18 05/10/19 05:30 BP 126/80 07/04/18 05:30 Pulse Ox 97 07/04/18 05:30 - Labs Result Diagrams: 07/04/18 01:54 07/04/18 01:54 Labs: Laboratory Results - last 24 hr 07/04/18 07/04/18 07/04/18 01:54 01:54 01:54 WBC 9.6 RBC 4.36 L Hgb 12.5 Hct 38.4 MCV 88.2 MCH 28.7 MCHC 32.6 L RDW 16.8 H Plt Count 198 MPV 7.5 Neut % (Auto) 84.9 H Lymph % (Auto) 9.4 L [place] % (Auto) 3.7 Eos % (Auto) 1.1 Baso % (Auto) 0.9 Neut # (Auto) 8.2 H Lymph # (Auto) 0.9 L [place] # (Auto) 0.4 Eos # (Auto) 0.1 Baso # (Auto) 0.1 Neutrophils % (Manual) 86 H Lymphocytes % (Manual) 8 L Monocytes % (Manual) 4 Eosinophils % (Manual) 2 Platelet Estimate Normal RBC Morphology Normal Sodium 134 Potassium 4.1 Chloride 99 Carbon Dioxide 19 L Anion Gap 20 BUN 40 H Creatinine 1.8 H Est GFR ( Amer) 44 Est GFR (Non-Af Amer) 36 Random Glucose 231 H Calcium 9.5 Total Bilirubin 0.7 AST 40 ALT 40 Alkaline Phosphatase 77 Troponin I < 0.0120 Total Protein 8.7 H Albumin 4.4 Globulin 4.3 H Albumin/Globulin Ratio 1.0 Lipase 602 H Urine Color Urine Clarity Urine pH Ur Specific [place] Urine Protein Urine Glucose (UA) Urine Ketones Urine Blood Urine Nitrate Urine Bilirubin Urine Urobilinogen Ur Leukocyte Esterase Urine RBC (Auto) Urine WBC Clumps (Auto) Urine Microscopic WBC Urine Bacteria Hyaline Casts Blood Type B POSITIVE Antibody Screen Negative BBK History Checked No verified bt 07/04/18 07/04/18 02:27 04:35 WBC RBC Hgb Hct MCV MCH MCHC RDW Plt Count MPV Neut % (Auto) Lymph % (Auto) [place] % (Auto) Eos % (Auto) Baso % (Auto) Neut # (Auto) Lymph # (Auto) [place] # (Auto) Eos # (Auto) Baso # (Auto) Neutrophils % (Manual) Lymphocytes % (Manual) Monocytes % (Manual) Eosinophils % (Manual) Platelet Estimate RBC Morphology Sodium Potassium Chloride Carbon Dioxide Anion Gap BUN Creatinine Est GFR ( Amer) Est GFR (Non-Af Amer) Random Glucose Calcium Total Bilirubin AST ALT Alkaline Phosphatase Troponin I Total Protein Albumin Globulin Albumin/Globulin Ratio Lipase Urine Color Yellow Urine Clarity Cloudy Urine pH 5.0 Ur Specific [place] 1.042 H Urine Protein 30 Urine Glucose (UA) Neg Urine Ketones Negative Urine Blood Large Urine Nitrate Negative Urine Bilirubin Negative Urine Urobilinogen 0.2-1.0 Ur Leukocyte Esterase Large Urine RBC (Auto) 376 H Urine WBC Clumps (Auto) Few H Urine Microscopic WBC 297 H Urine Bacteria Rare Hyaline Casts 6-10 H Blood Type B POSITIVE Antibody Screen BBK History Checked Patient has bt Assessment & Plan - Assessment and Plan (Free Text) Assessment: 78 M who presents with abdominal pain -CT: extrahepatic dilation, GB distention, and cholelithiasis (see full report) -ABUS: cholelithiasis with impacted stone in neck, sludge, dilated CBD 1.1cm (see full report) -NPO -very light hydration due to CHF -Pain control -Anti-emetics PRN -IV abx -Further recommendations as per Dr. Luis F Wagner PGY2 - Date & Time Date: 07/04/18 Time: 05:30 <Ge Omer - Last Filed: 07/04/18 10:41> Meds - Medications Medications: Current Medications Lactated Ringer's (Lactated Ringer's) 1,000 mls @ 50 mls/hr IV .Q20H ANTONY Piperacillin Sod/Tazobactam (Sod 3.375 gm/ Sodium Chloride) 100 mls @ 100 mls/hr IVPB Q6 ANTONY; Protocol Latanoprost (Xalatan Opht) 1 drop OD HS ANTONY Metoprolol Tartrate (Lopressor) 2.5 mg IVP Q6 ANTONY Morphine Sulfate (Morphine) 2 mg IVP Q4 PRN PRN Reason: Pain, severe (8-10) Ondansetron HCl (Zofran Inj) 4 mg IVP Q6 PRN PRN Reason: Nausea/Vomiting Results - Vital Signs Recent Vital Signs: Last Vital Signs Temp 97.6 F 07/04/18 10:00 Pulse 60 07/04/18 10:00 Resp 16 07/04/18 10:00 BP 138/72 07/04/18 10:00 Pulse Ox 100 07/04/18 10:00 - Labs Result Diagrams: 07/04/18 01:54 07/04/18 01:54 Labs: Laboratory Results - last 24 hr 07/04/18 07/04/18 07/04/18 01:54 01:54 01:54 WBC 9.6 RBC 4.36 L Hgb 12.5 Hct 38.4 MCV 88.2 MCH 28.7 MCHC 32.6 L RDW 16.8 H Plt Count 198 MPV 7.5 Neut % (Auto) 84.9 H Lymph % (Auto) 9.4 L [place] % (Auto) 3.7 Eos % (Auto) 1.1 Baso % (Auto) 0.9 Neut # (Auto) 8.2 H Lymph # (Auto) 0.9 L [place] # (Auto) 0.4 Eos # (Auto) 0.1 Baso # (Auto) 0.1 Neutrophils % (Manual) 86 H Lymphocytes % (Manual) 8 L Monocytes % (Manual) 4 Eosinophils % (Manual) 2 Platelet Estimate Normal RBC Morphology Normal Sodium 134 Potassium 4.1 Chloride 99 Carbon Dioxide 19 L Anion Gap 20 BUN 40 H Creatinine 1.8 H Est GFR ( Amer) 44 Est GFR (Non-Af Amer) 36 Random Glucose 231 H Calcium 9.5 Total Bilirubin 0.7 AST 40 ALT 40 Alkaline Phosphatase 77 Troponin I < 0.0120 Total Protein 8.7 H Albumin 4.4 Globulin 4.3 H Albumin/Globulin Ratio 1.0 Lipase 602 H Urine Color Urine Clarity Urine pH Ur Specific [place] Urine Protein Urine Glucose (UA) Urine Ketones Urine Blood Urine Nitrate Urine Bilirubin Urine Urobilinogen Ur Leukocyte Esterase Urine RBC (Auto) Urine WBC Clumps (Auto) Urine Microscopic WBC Urine Bacteria Hyaline Casts Blood Type B POSITIVE Antibody Screen Negative BBK History Checked No verified bt 07/04/18 07/04/18 02:27 04:35 WBC RBC Hgb Hct MCV MCH MCHC RDW Plt Count MPV Neut % (Auto) Lymph % (Auto) [place] % (Auto) Eos % (Auto) Baso % (Auto) Neut # (Auto) Lymph # (Auto) [place] # (Auto) Eos # (Auto) Baso # (Auto) Neutrophils % (Manual) Lymphocytes % (Manual) Monocytes % (Manual) Eosinophils % (Manual) Platelet Estimate RBC Morphology Sodium Potassium Chloride Carbon Dioxide Anion Gap BUN Creatinine Est GFR ( Amer) Est GFR (Non-Af Amer) Random Glucose Calcium Total Bilirubin AST ALT Alkaline Phosphatase Troponin I Total Protein Albumin Globulin Albumin/Globulin Ratio Lipase Urine Color Yellow Urine Clarity Cloudy Urine pH 5.0 Ur Specific [place] 1.042 H Urine Protein 30 Urine Glucose (UA) Neg Urine Ketones Negative Urine Blood Large Urine Nitrate Negative Urine Bilirubin Negative Urine Urobilinogen 0.2-1.0 Ur Leukocyte Esterase Large Urine RBC (Auto) 376 H Urine WBC Clumps (Auto) Few H Urine Microscopic WBC 297 H Urine Bacteria Rare Hyaline Casts 6-10 H Blood Type B POSITIVE Antibody Screen BBK History Checked Patient has bt Assessment & Plan - Assessment and Plan (Free Text) Assessment: 78yo M presents with one day history of epigastric/ruq pain x 1 day associated with nausea but no vomiting. Pt recently discharged from hospital treated for COPD/CHF. Pt denies any fever, chills. sob, cp. PMHx: COPD, CHF, PShx: Pacemaker gen: awake, alert, NAD HEENT: NC/at, eomi, perrla, no scleral icterus no acute respiratory distress card: S1S2 abd: soft, ND, +tenderness, +murphys, no incisional hernias ext: no edema 78yo M with gallstone pancreatitis -NPO -gentle hydration -IV abx -pain control -repeat labs in am -hold xarelto -possible laparascopic cholecystectomy early next week
[2018-07-04] MEDS ORDERED: Piperacillin/Tazobact 3.375 gm Inj IVPB ONE ×2 (06:49→11:20)
--- NOTE | 2018-07-04 09:07 | CP.PCM.HP ---
History of Present Illness - History of Present Illness History of Present Illness: This 78-year-old man was brought to the emergency room with complaints of severe abdominal pain and abdominal distention along with nausea but no vomiting. He denied any chills or fever. He had moved his bowels and was passing gas. The patient was sent home a few hours before after being treated at this hospital for congestive cardiac failure. He has a long medical history which consists of hypertension diabetes and dyslipidemia requiring coronary bypass graft surgery year 1999. He had developed atrial fibrillation couple of years back and required a VVI pacemaker implant at the end of April of this year for persistent bradycardia. He also had congestive cardiac failure which was left ventricular systolic and chronic with left ventricular ejection fraction in the range of 35%. He has a long history of COPD as a consequence of years of chronic cigarette use. He has quit smoking more than 10 years back. He also has chronic kidney disease often aggravated by diuresis as part of his treatment for congestive cardiac failure. He has benign prostatic hypertrophy. Physical examination shows an elderly thin built man who appears exhausted and was drowsy having received morphine for relief of pain. At the time of this examination he was fairly pain-free but had significant tenderness in the right hypochondrial area. There was no guarding or rigidity but there was significant tenderness. The abdomen was slightly distended and had a tympanic percussion note. Intestinal sounds were well heard. Rectal examination was deferred. His JVP was not elevated and there was no edema over his lower extremity. The pedal pulses were extremely feeble but distinctly present. The apex was not palpable the first and second heart sounds were normal. A pacemaker was in place in the left infraclavicular area. Scar of sternotomy was evident. Inspiratory effort was poor but there were no rales. His electrocardiogram showed a VVI paced rhythm. His lab data shows WBC count of 9600 of which 85% with neutrophils. His hemoglobin hematocrit were 12.5 g and 38.4% respectively his platelet count 198,000. BUN/creatinine were 40 and 1.8 mg percent respectively with normal electrolytes distribution his serum bilirubin and alkaline phosphatase with normal AST ALT were normal. Serum lipase was elevated at [address] of the abdomen revealed evidence of a thickened gallbladder wall as well as gallstones and dilated common bile duct. Impression: Acute cholecystitis with cholelithiasis and evidence of pancreatitis. Hypertension diabetes and dyslipidemia with stable coronary artery disease. Status post coronary bypass graft surgery. Atrial fibrillation with status post VVI pacemaker implant. COPD. CKD stage III. His surgical consult has been requested. The patient is on oral anticoagulation which has been withheld. At this juncture he is hemodynamically stable and is receiving IV fluids gently. Follow-up CBC, lipase and complete metabolic profile has been requested. I have spoken with his son at length. Present on Admission - Present on Admission Any Indicators Present on Admission: No Past Patient History - Past Medical History & Family History Past Medical History?: Yes - Past Social History Smoking Status: Former Smoker - CARDIAC Hx Atrial Fibrillation: Yes Hx Cardia Arrhythmia: Yes (tachy/nasim) Hx Congestive Heart Failure: Yes Hx Hypercholesterolemia: Yes Hx Hypertension: Yes Hx Pacemaker: Yes - PULMONARY Hx Bronchitis: Yes Hx Chronic Obstructive Pulmonary Disease (COPD): Yes Hx Pneumonia: Yes () - NEUROLOGICAL Hx Transient Ischemic Attacks (TIA): No - HEENT Hx HEENT Problems: Yes - RENAL Hx Chronic Kidney Disease: Yes - ENDOCRINE/METABOLIC Hx Diabetes Mellitus Type 2: Yes - HEMATOLOGICAL/ONCOLOGICAL Hx Anemia: No Hx Human Immunodeficiency Virus (HIV): No - INTEGUMENTARY Hx Dermatological Problems: No - MUSCULOSKELETAL/RHEUMATOLOGICAL Hx Arthritis: Yes Hx Fractures: No Hx Osteoporosis: Yes - GASTROINTESTINAL Hx Gastrointestinal Disorders: No - GENITOURINARY/GYNECOLOGICAL Hx Genitourinary Disorders: No - PSYCHIATRIC Hx Psychophysiologic Disorder: No Hx Substance Use: No - SURGICAL HISTORY Hx Coronary Artery Bypass Graft: Yes (1999) - ANESTHESIA Hx Anesthesia: Yes Hx Anesthesia Reactions: No Hx Malignant Hyperthermia: No Meds Allergies/Adverse Reactions: Allergies Allergy/AdvReac Type Severity Reaction Status Date / Time azithromycin Allergy ITCHING Verified 07/04/18 01:07 moxifloxacin [From Avelox] Allergy ITCHING Verified 07/04/18 01:07 Results - Vital Signs Recent Vital Signs: Last Vital Signs Temp 97.6 F 07/04/18 05:59 Pulse 60 07/04/18 05:59 Resp 17 07/04/18 05:59 BP 126/73 07/04/18 05:59 Pulse Ox 100 07/04/18 05:59 - Labs Result Diagrams: 07/04/18 01:54 07/04/18 01:54 Labs: Laboratory Results - last 24 hr 07/04/18 07/04/18 07/04/18 01:54 01:54 01:54 WBC 9.6 RBC 4.36 L Hgb 12.5 Hct 38.4 MCV 88.2 MCH 28.7 MCHC 32.6 L RDW 16.8 H Plt Count 198 MPV 7.5 Neut % (Auto) 84.9 H Lymph % (Auto) 9.4 L [place] % (Auto) 3.7 Eos % (Auto) 1.1 Baso % (Auto) 0.9 Neut # (Auto) 8.2 H Lymph # (Auto) 0.9 L [place] # (Auto) 0.4 Eos # (Auto) 0.1 Baso # (Auto) 0.1 Neutrophils % (Manual) 86 H Lymphocytes % (Manual) 8 L Monocytes % (Manual) 4 Eosinophils % (Manual) 2 Platelet Estimate Normal RBC Morphology Normal Sodium 134 Potassium 4.1 Chloride 99 Carbon Dioxide 19 L Anion Gap 20 BUN 40 H Creatinine 1.8 H Est GFR ( Amer) 44 Est GFR (Non-Af Amer) 36 Random Glucose 231 H Calcium 9.5 Total Bilirubin 0.7 AST 40 ALT 40 Alkaline Phosphatase 77 Troponin I < 0.0120 Total Protein 8.7 H Albumin 4.4 Globulin 4.3 H Albumin/Globulin Ratio 1.0 Lipase 602 H Urine Color Urine Clarity Urine pH Ur Specific [place] Urine Protein Urine Glucose (UA) Urine Ketones Urine Blood Urine Nitrate Urine Bilirubin Urine Urobilinogen Ur Leukocyte Esterase Urine RBC (Auto) Urine WBC Clumps (Auto) Urine Microscopic WBC Urine Bacteria Hyaline Casts Blood Type B POSITIVE Antibody Screen Negative BBK History Checked No verified bt 07/04/18 07/04/18 02:27 04:35 WBC RBC Hgb Hct MCV MCH MCHC RDW Plt Count MPV Neut % (Auto) Lymph % (Auto) [place] % (Auto) Eos % (Auto) Baso % (Auto) Neut # (Auto) Lymph # (Auto) [place] # (Auto) Eos # (Auto) Baso # (Auto) Neutrophils % (Manual) Lymphocytes % (Manual) Monocytes % (Manual) Eosinophils % (Manual) Platelet Estimate RBC Morphology Sodium Potassium Chloride Carbon Dioxide Anion Gap BUN Creatinine Est GFR ( Amer) Est GFR (Non-Af Amer) Random Glucose Calcium Total Bilirubin AST ALT Alkaline Phosphatase Troponin I Total Protein Albumin Globulin Albumin/Globulin Ratio Lipase Urine Color Yellow Urine Clarity Cloudy Urine pH 5.0 Ur Specific [place] 1.042 H Urine Protein 30 Urine Glucose (UA) Neg Urine Ketones Negative Urine Blood Large Urine Nitrate Negative Urine Bilirubin Negative Urine Urobilinogen 0.2-1.0 Ur Leukocyte Esterase Large Urine RBC (Auto) 376 H Urine WBC Clumps (Auto) Few H Urine Microscopic WBC 297 H Urine Bacteria Rare Hyaline Casts 6-10 H Blood Type B POSITIVE Antibody Screen BBK History Checked Patient has bt
[2018-07-04] MEDS ORDERED: Metoprolol 1 mg/ml Inj ONE (11:20)
[2018-07-04] MEDS: Metoprolol 1 mg/ml Inj IVP SCH ×3 (11:29→21:30)
[2018-07-04] MEDS: Piperacillin/Tazobact 3.375 GM in Sodium Chloride 0.9% 100 ML IVPB SCH ×3 (11:31→21:32)
--- NOTE | 2018-07-04 11:32 | CT ---
PROCEDURE: CT angiography. Includes lower thorax, abdomen, retroperitoneum and pelvis. With and without intravenous contrast HISTORY: CABG, CAD, CHF, rule out mesenteric ischemia COMPARISON: 04/19/2018. CT thorax. July 04, 2018. Abdominal ultrasound. TECHNIQUE: Contiguous axial images of the chest, abdomen and pelvis were obtained in the phase of aortic enhancement. A noncontrast enhanced CT of the chest was also obtained to evaluate for possible intramural thrombus. Coronal and sagittal reformats were generated. IV dose administered: 100 cc Visipaque 320. Radiation dose: Total exam DLP = 589.61 mGy-cm. This CT exam was performed using one or more of the following dose reduction techniques: Automated exposure control, adjustment of the mA and/or kV according to patient size, and/or use of iterative reconstruction technique. FINDINGS: CT ANGIOGRAPHY OF THE CHEST WITH & WITHOUT CONTRAST: AORTA (CHEST AND ABDOMEN): The lower thoracic aorta are abdominal aorta satisfactorily opacified without evidence of aneurysm, dissection or rupture. No intramural thrombus identified in the thoracic aorta on the non-contrast ct of the chest. The celiac axis, superior mesenteric artery, inferior mesenteric artery and the renal arteries are widely patent. The pelvic arteries are unremarkable. LUNGS: Residual infiltrate/scarring at the lung bases considerable improvement compared to 04/19/2018. Incompletely visualized infiltrate anterior segment right upper lobe. Similar findings seen on the prior study there is improvement without resolution. MEDIASTINUM: Unremarkable. Normal caliber aorta and pulmonary arterial trunk. No aortic dissection. Normal size heart. LYMPH NODES: Unremarkable. PLEURA: Unremarkable. No pneumothorax. No pleural fluid. BONES: Unremarkable. OTHER FINDINGS: None. CT ANGIOGRAPHY OF THE ABDOMEN AND PELVIS WITH CONTRAST: LIVER: Unremarkable. No gross lesion or ductal dilatation. GALLBLADDER AND BILE DUCTS: Cholelithiasis without CT evidence of acute cholecystitis. Dilatation of the common bile duct maximum diameter 13 mm confirming findings on recent ultrasound. Distal diameter 8 mm. No visible stones identified. No evidence of pancreatitis. PANCREAS: Unremarkable. No gross lesion or ductal dilatation. SPLEEN: Unremarkable. ADRENALS: Unremarkable. No mass. KIDNEYS AND URETERS: Right kidney: Atrophic. Left kidney: Unremarkable. No hydronephrosis. No solid mass. VASCULATURE: Atherosclerotic calcification and mural plaque present. Findings are seen throughout the aorta which is non aneurysmal. Widely patent celiac axis, SMA. No critical stenoses left renal artery is visualized. Main and branch arteries are patent. Diminutive right renal artery consistent with a right renal atrophy. The main and branch renal arteries on the right are patent. STOMACH AND BOWEL: Unremarkable. No obstruction. No gross mural thickening. No evidence of ischemic bowel. No visible pneumatosis. APPENDIX: Normal appendix. PERITONEUM: Unremarkable. No free fluid. No free air. LYMPH NODES: Unremarkable. No enlarged lymph nodes. BLADDER: Bladder wall thickening. Indeterminate finding given low capacitance bladder. Cystitis should be considered in the appropriate clinical setting. REPRODUCTIVE: Unremarkable. BONES: No acute fracture. Multilevel degenerative change. OTHER FINDINGS: None. IMPRESSION: 1. No evidence of acute dissection. 2. No evidence of aneurysmal dilatation of the visible thoracic and abdominal aorta. 3. Visceral branches as visualized and renal arteries is visualized are without evidence of occlusion or other acute pathologic process. 4. Persistent infiltrates as visualized right upper lobe in both lower lobes. Comparison with prior study 04/19/2018 however failed to demonstrate complete resolution. 5. Cholelithiasis without CT evidence of acute cholecystitis. 6. Additional benign and/or incidental findings described above. Concordant results (preliminary interpretation) provided by [facility]. Procedure Completed: 03:37. Preliminary Report: Interpreted and electronically signed: 04:48. Final Interpretation: 11:28. July 04, 2018. Atrophic right kidney.
[2018-07-04 11:48] LABS: BASO # 0.1 K/uL (0.0-0.2); BASO % 0.5 % (0.0-2.0); EOS % 0.1 % (0.0-4.0); HEMOGLOBIN 12.1 g/dL (12.0-18.0); LYMPH # 0.8 K/uL (1.0-4.3); LYMPH % 5.9 % (20.0-40.0); MEAN CELL VOLUME 88.5 fl (80.0-94.0); MEAN CORPUSCULAR HEMOGLOBIN 28.1 pg (27.0-31.0); MEAN CORPUSCULAR HGB CONC 31.7 g/dL (33.0-37.0); MEAN PLATELET VOLUME 7.6 fl (7.2-11.7); MONO % 6.8 % (0.0-10.0); NEUT # 12.4 K/uL (1.8-7.0); NEUT % 86.7 % (50.0-75.0); NRBC % 0.1 % (0.0-0.0); RBC 4.3 Mil/uL (4.40-5.90); RED CELL DISTRIBUTION WIDTH 16.5 % (11.5-14.5); WHITE BLOOD COUNT 14.3 K/uL (4.8-10.8)
[2018-07-04 11:56] LABS: ALBUMIN 3.9 g/dL (3.5-5.0); CALCIUM 9.1 mg/dL (8.4-10.2)
--- NOTE | 2018-07-04 14:03 | US ---
Date of service: 07/04/2018 HISTORY: Abdominal pain. Personal history of gallstones. COMPARISON: 05/25/2018. Renal ultrasound. July 04, 2018. CT abdomen and pelvis. TECHNIQUE: Sonographic evaluation of the right upper quadrant of the abdomen. FINDINGS: LIVER: Measures 14.3 Patent portal and hepatic venous systems. Portal venous flow: Hepatopetal. cm in length. Normal echogenicity of the liver parenchyma. No mass. No intrahepatic bile duct dilatation. GALLBLADDER: Cholelithiasis. Negative study for gallbladder wall thickening, pericholecystic fluid, sonographic Lassiter's sign. COMMON BILE DUCT: Measures 9-12 mm. No stones. No dilatation. PANCREAS: Unremarkable as visualized. Nondiagnostic assessment of the pancreatic head and tail. RIGHT KIDNEY: Measures 3.9 x 7.8 cm in length. Atrophic right kidney, findings confirmed concurrent CT of the abdomen and pelvis and unchanged compared to the prior ultrasound 05/25/2018. AORTA: No aneurysmal dilatation. IVC: Unremarkable. OTHER FINDINGS: None . IMPRESSION: No acute or significant findings related to/ accounting for the clinical presentation. Additional benign and/or incidental findings described above. No significant interval change compared to the prior examination(s). Concordant findings (preliminary report) provided by [facility].
--- NOTE | 2018-07-04 14:32 | CARD ---
APPROVED REPORT Date of service: 07/04/2018 EKG Measurement Heart [id number] <Conclusion> Ventricular-paced rhythm Abnormal ECG
[2018-07-04] MEDS: Latanoprost 0.005% Opht SOUTION OD SCH (21:32)
[2018-07-05] MEDS ORDERED: Metoprolol 1 mg/ml Inj IVP STA ×2 (01:19→01:20)
[2018-07-05] MEDS ORDERED: Digoxin 500 mcg/2ml (0.5 mg/2ml) Inj IVP ONE ×2 (01:34→02:16)
--- NOTE | 2018-07-05 04:06 | CP.PCM.PCO ---
Physician Communication Note - Physician Communication Note Physician Communication Note: Pt in afib with RVR. metoprolol and digoxin given
[2018-07-05] MEDS: Piperacillin/Tazobact 3.375 GM in Sodium Chloride 0.9% 100 ML IVPB SCH ×4 (04:18→21:35)
[2018-07-05] MEDS: Metoprolol 1 mg/ml Inj IVP SCH ×4 (04:19→21:33)
[2018-07-05] MEDS: Lactated Ringer's 1,000 ML IV SCH (04:19)
[2018-07-05 05:11] LABS: BASO # 0.1 K/uL (0.0-0.2); BASO % 0.5 % (0.0-2.0); EOS # 0.1 K/uL (0.0-0.7); EOS % 0.7 % (0.0-4.0); LYMPH % 9.1 % (20.0-40.0); MEAN CORPUSCULAR HEMOGLOBIN 28.2 pg (27.0-31.0); MEAN PLATELET VOLUME 7.3 fl (7.2-11.7); MONO # 0.9 K/uL (0.0-0.8); MONO % 7.7 % (0.0-10.0); NEUT # 9.4 K/uL (1.8-7.0); RBC 4.25 Mil/uL (4.40-5.90); RED CELL DISTRIBUTION WIDTH 16.4 % (11.5-14.5); WHITE BLOOD COUNT 11.5 K/uL (4.8-10.8)
[2018-07-05 05:12] LABS: ALB/GLOB RATIO 0.9 (1.0-2.1); ALBUMIN 3.6 g/dL (3.5-5.0); CALCIUM 8.5 mg/dL (8.4-10.2)
--- NOTE | 2018-07-05 08:57 | CP.PCM.PN ---
Subjective - Date & Time of Evaluation Date of Evaluation: 07/05/18 Time of Evaluation: 08:45 - Subjective Subjective: The patient was found resting comfortably in bed and denies any abdominal pain or distention or nausea. The patient denies any chills or fever during night. Remains afebrile. Telemetry shows atrial fibrillation at 80 to 90 bpm with occ asional VVI paced rhythm. Blood pressure was 130/70 mmHg. JVP was not elevated and there were no rales. Abdomen was not distended and a vague sense of tenderness was in the right hypochondrial area on deep palpation. Intestinal sounds were well heard. Labs show leukocytosis resolving after a spike yesterday. BUN and creatinine has slightly improved since his admission values. Lipase level has dropped to 364 units from 602 at admission. Alkaline phosphatase and AST ALT are normal. Discussed the case with the surgeons who tentatively plan to operate early next week. Patient's daughter at bedside is aware of these plans. Objective - Vital Signs/Intake and Output Vital Signs (last 24 hours): Temp Pulse Resp BP Pulse Ox 98.2 F 109 H 20 127/70 98 07/05/18 08:42 07/05/18 08:42 07/05/18 08:42 07/05/18 08:42 07/05/18 08:42 - Medications Medications: Current Medications Enoxaparin Sodium (Lovenox) 30 mg SC DAILY [facility]; Protocol Lactated Ringer's (Lactated Ringer's) 1,000 mls @ 50 mls/hr IV .Q20H [facility] Last Admin: 07/05/18 04:19 Dose: 50 mls/hr Piperacillin Sod/Tazobactam (Sod 3.375 gm/ Sodium Chloride) 100 mls @ 100 mls/hr IVPB Q6 [facility]; Protocol Last Admin: 07/05/18 04:18 Dose: 100 mls/hr Latanoprost (Xalatan Opht) 1 drop OD HS ANTONY Last Admin: 07/04/18 21:32 Dose: Not Given Metoprolol Tartrate (Lopressor) 2.5 mg IVP Q6 ANTON[facility] Last Admin: 07/05/18 04:19 Dose: 2.5 mg Morphine Sulfate (Morphine) 2 mg IVP Q4 PRN PRN Reason: Pain, severe (8-10) Last Admin: 07/05/18 00:39 Dose: 2 mg Ondansetron HCl (Zofran Inj) 4 mg IVP Q6 PRN PRN Reason: Nausea/Vomiting - Labs Labs: 07/05/18 04:41 07/05/18 04:41
[2018-07-05] MEDS: Enoxaparin 30 mg Syringe SC SCH (10:07)
--- NOTE | 2018-07-05 10:22 | CP.PCM.PN ---
<Delonte Birmingham - Last Filed: 07/05/18 10:17> Subjective - Date & Time of Evaluation Date of Evaluation: 07/05/18 Time of Evaluation: 10:17 - Subjective Subjective: Surgery Progress Note for Dr. Omer 78M seen and evaluated at bedside this morning. Patient afib overnight, medications given. Complains of dry mouth this morning. Abdominal pain has improved. Denies f/c, n/v/d, SOB, CP, or urinary symptoms. Objective - Vital Signs/Intake and Output Vital Signs (last 24 hours): Temp Pulse Resp BP Pulse Ox 98.2 F 109 H 20 127/70 98 07/05/18 08:42 07/05/18 10:07 07/05/18 08:42 07/05/18 10:07 07/05/18 08:42 - Medications Medications: Current Medications Enoxaparin Sodium (Lovenox) 30 mg SC DAILY [facility]; Protocol Last Admin: 07/05/18 10:07 Dose: 30 mg Lactated Ringer's (Lactated Ringer's) 1,000 mls @ 50 mls/hr IV .Q20H [facility]TON[facility] Last Admin: 07/05/18 04:19 Dose: 50 mls/hr Piperacillin Sod/Tazobactam (Sod 3.375 gm/ Sodium Chloride) 100 mls @ 100 mls/hr IVPB Q6 [facility]TON[facility]; Protocol Last Admin: 07/05/18 10:05 Dose: 100 mls/hr Latanoprost (Xalatan Opht) 1 drop OD HS ANTONY Last Admin: 07/04/18 21:32 Dose: Not Given Metoprolol Tartrate (Lopressor) 2.5 mg IVP Q6 [facility]TON[facility] Last Admin: 07/05/18 10:07 Dose: 2.5 mg Morphine Sulfate (Morphine) 2 mg IVP Q4 PRN PRN Reason: Pain, severe (8-10) Last Admin: 07/05/18 00:39 Dose: 2 mg Ondansetron HCl (Zofran Inj) 4 mg IVP Q6 PRN PRN Reason: Nausea/Vomiting - Labs Labs: 07/05/18 04:41 07/05/18 04:41 - Constitutional Appears: Well, Non-toxic, No Acute Distress - Head Exam Head Exam: ATRAUMATIC, NORMAL INSPECTION, NORMOCEPHALIC - Eye Exam Eye Exam: EOMI - ENT Exam ENT Exam: Mucous Membranes Moist - Respiratory Exam Respiratory Exam: Clear to Ausculation Bilateral, NORMAL BREATHING PATTERN - Cardiovascular Exam Additional comments: pacemaker - GI/Abdominal Exam GI & Abdominal Exam: Soft, Tenderness, Normal Bowel Sounds. absent: Distended - Neurological Exam Neurological Exam: Alert, Awake, Oriented x3 - Psychiatric Exam Psychiatric exam: Normal Affect, Normal Mood - Skin Skin Exam: Dry, Intact, Normal Color, Warm Assessment and Plan - Assessment and Plan (Free Text) Assessment: 78M w/ gallstone pancreatitis, improving Plan: Per cardio, patient will be high risk due to cardiac history; however, if patient needs surgery he may proceed Plan for OR early next week CLD ok until prior to surgery Antiemetics and analgesics PRN Medical management per primary team D/w Dr. Kan Birmingham PGY1 <Ge Omer - Last Filed: 07/06/18 00:11> Objective - Vital Signs/Intake and Output Vital Signs (last 24 hours): Temp Pulse Resp BP Pulse Ox 97.1 F L 121 H 18 132/76 98 07/05/18 18:51 07/05/18 21:33 07/05/18 18:51 07/05/18 21:33 07/05/18 18:51 - Medications Medications: Current Medications Enoxaparin Sodium (Lovenox) 30 mg SC DAILY [facility]; Protocol Last Admin: 07/05/18 10:07 Dose: 30 mg Lactated Ringer's (Lactated Ringer's) 1,000 mls @ 50 mls/hr IV .Q20H [facility] Last Admin: 07/05/18 04:19 Dose: 50 mls/hr Piperacillin Sod/Tazobactam (Sod 3.375 gm/ Sodium Chloride) 100 mls @ 100 mls/hr IVPB Q6 [facility]; Protocol Last Admin: 07/05/18 21:35 Dose: 100 mls/hr Latanoprost (Xalatan Opht) 1 drop OD HS [facility]TONY Last Admin: 07/05/18 21:44 Dose: 1 drop Metoprolol Tartrate (Lopressor) 2.5 mg IVP Q6 [facility] Last Admin: 07/05/18 21:33 Dose: 2.5 mg Morphine Sulfate (Morphine) 2 mg IVP Q4 PRN PRN Reason: Pain, severe (8-10) Last Admin: 07/05/18 00:39 Dose: 2 mg Ondansetron HCl (Zofran Inj) 4 mg IVP Q6 PRN PRN Reason: Nausea/Vomiting Pantoprazole Sodium (Protonix Inj) 40 mg IVP DAILY [facility] Last Admin: 07/05/18 13:56 Dose: 40 mg - Labs Labs: 07/05/18 04:41 07/05/18 04:41 Assessment and Plan - Assessment and Plan (Free Text) Plan: pt seen at bedside with family present and translating. Pt reports abd pain improved since admission. gen: awake, alert, NAD HEENT: nc/at, eomi, no scleral icterus abd: soft, ND, minimal RUQ tenderness on deep palpation, no peritoneal signs -cont prn pain control -ok for clears -IV abx -repeat lfts, tbili -will monitor Tbili levels
[2018-07-05] MEDS: Latanoprost 0.005% Opht SOUTION OD SCH (21:44)
[2018-07-06] MEDS: Lactated Ringer's 1,000 ML IV SCH ×2 (00:43→21:43)
[2018-07-06] MEDS: Metoprolol 1 mg/ml Inj IVP SCH ×4 (04:40→21:39)
[2018-07-06] MEDS: Piperacillin/Tazobact 3.375 GM in Sodium Chloride 0.9% 100 ML IVPB SCH ×4 (04:41→21:42)
[2018-07-06 05:49] LABS: BASO # 0.1 K/uL (0.0-0.2); BASO % 0.9 % (0.0-2.0); EOS # 0.5 K/uL (0.0-0.7); HEMOGLOBIN 11.1 g/dL (12.0-18.0); LYMPH % 12.2 % (20.0-40.0); MEAN CELL VOLUME 87.2 fl (80.0-94.0); MEAN CORPUSCULAR HEMOGLOBIN 29.1 pg (27.0-31.0); MEAN CORPUSCULAR HGB CONC 33.3 g/dL (33.0-37.0); MEAN PLATELET VOLUME 7.1 fl (7.2-11.7); MONO # 0.7 K/uL (0.0-0.8); MONO % 8.6 % (0.0-10.0); NEUT % 72.3 % (50.0-75.0); NRBC % 0.1 % (0.0-0.0); RBC 3.81 Mil/uL (4.40-5.90); RED CELL DISTRIBUTION WIDTH 16.8 % (11.5-14.5); WHITE BLOOD COUNT 8.3 K/uL (4.8-10.8)
[2018-07-06 06:01] LABS: ALB/GLOB RATIO 0.9 (1.0-2.1); ALBUMIN 3.1 g/dL (3.5-5.0); CALCIUM 8.1 mg/dL (8.4-10.2)
[2018-07-06] MEDS ORDERED: Potassium Chloride 20 mEq ER Tab PO ONE (07:40)
--- NOTE | 2018-07-06 07:40 | CP.PCM.PN ---
<VinnieDelonte - Last Filed: 07/06/18 07:41> Subjective - Date & Time of Evaluation Date of Evaluation: 07/06/18 Time of Evaluation: 07:38 - Subjective Subjective: Surgery Progress Note for Dr. Omer 78M seen and evaluated at bedside this morning. No acute events overnight. No complaints this morning. Denies f/c, n/v/d, SOB, CP, or urinary symptoms. Objective - Vital Signs/Intake and Output Vital Signs (last 24 hours): Temp Pulse Resp BP Pulse Ox 98.2 F 108 H 12 126/72 98 07/06/18 04:40 07/06/18 04:40 07/06/18 04:40 07/06/18 04:40 07/06/18 04:40 - Medications Medications: Current Medications Enoxaparin Sodium (Lovenox) 30 mg SC DAILY [facility]; Protocol Last Admin: 07/05/18 10:07 Dose: 30 mg Lactated Ringer's (Lactated Ringer's) 1,000 mls @ 50 mls/hr IV .Q20H [facility] Last Admin: 07/06/18 00:43 Dose: 50 mls/hr Piperacillin Sod/Tazobactam (Sod 3.375 gm/ Sodium Chloride) 100 mls @ 100 mls/hr IVPB Q6 [facility]; Protocol Last Admin: 07/06/18 04:41 Dose: 100 mls/hr Latanoprost (Xalatan Opht) 1 drop OD HS ANTONY Last Admin: 07/05/18 21:44 Dose: 1 drop Metoprolol Tartrate (Lopressor) 2.5 mg IVP Q6 [facility] Last Admin: 07/06/18 04:40 Dose: 2.5 mg Morphine Sulfate (Morphine) 2 mg IVP Q4 PRN PRN Reason: Pain, severe (8-10) Last Admin: 07/05/18 00:39 Dose: 2 mg Ondansetron HCl (Zofran Inj) 4 mg IVP Q6 PRN PRN Reason: Nausea/Vomiting Pantoprazole Sodium (Protonix Inj) 40 mg IVP DAILY [facility] Last Admin: 07/05/18 13:56 Dose: 40 mg - Labs Labs: 07/06/18 04:41 07/06/18 04:41 - Constitutional Appears: Well, Non-toxic, No Acute Distress - Head Exam Head Exam: ATRAUMATIC, NORMAL INSPECTION, NORMOCEPHALIC - Eye Exam Eye Exam: EOMI - ENT Exam ENT Exam: Mucous Membranes Moist - Respiratory Exam Respiratory Exam: NORMAL BREATHING PATTERN. absent: Wheezes, Respiratory Distress - GI/Abdominal Exam GI & Abdominal Exam: Soft, Normal Bowel Sounds. absent: Tenderness - Neurological Exam Neurological Exam: Alert, Awake, Oriented x3 - Psychiatric Exam Psychiatric exam: Normal Affect, Normal Mood - Skin Skin Exam: Dry, Intact, Normal Color, Warm Assessment and Plan - Assessment and Plan (Free Text) Assessment: 78M w/ gallstone pancreatitis, improving Plan: Elevated Tbili, may consider MRCP Continue plan for OR Saturday CLD ok until prior to surgery Antiemetics and analgesics PRN Medical management per primary team D/w Dr. Kan Birmingham PGY1 <Ge Omer - Last Filed: 07/06/18 15:40> Objective - Vital Signs/Intake and Output Vital Signs (last 24 hours): Temp Pulse Resp BP Pulse Ox 98.7 F 89 20 149/75 98 07/06/18 12:05 07/06/18 12:05 07/06/18 12:05 07/06/18 12:05 07/06/18 12:05 - Medications Medications: Current Medications Enoxaparin Sodium (Lovenox) 30 mg SC DAILY [facility]; Protocol Last Admin: 07/06/18 09:35 Dose: 30 mg Lactated Ringer's (Lactated Ringer's) 1,000 mls @ 50 mls/hr IV .Q20H [facility] Last Admin: 07/06/18 00:43 Dose: 50 mls/hr Piperacillin Sod/Tazobactam (Sod 3.375 gm/ Sodium Chloride) 100 mls @ 100 mls/hr IVPB Q6 [facility]; Protocol Last Admin: 07/06/18 09:37 Dose: 100 mls/hr Latanoprost (Xalatan Opht) 1 drop OD HS ANTONY Last Admin: 07/05/18 21:44 Dose: 1 drop Metoprolol Tartrate (Lopressor) 2.5 mg IVP Q6 AN[facility]Y Last Admin: 07/06/18 09:36 Dose: 2.5 mg Morphine Sulfate (Morphine) 2 mg IVP Q4 PRN PRN Reason: Pain, severe (8-10) Last Admin: 07/05/18 00:39 Dose: 2 mg Ondansetron HCl (Zofran Inj) 4 mg IVP Q6 PRN PRN Reason: Nausea/Vomiting Pantoprazole Sodium (Protonix Inj) 40 mg IVP DAILY [facility] Last Admin: 07/06/18 09:35 Dose: 40 mg - Labs Labs: 07/06/18 04:41 07/06/18 04:41 Assessment and Plan - Assessment and Plan (Free Text) Plan: seen at bedside, family at bedside, reports ruq pain on palpation, tolerating clears. gen: awake, alert, nad heent: nc/at, eomi, perrla, no scleral icterus abd: soft, ND, +RUQ tenderness cont IV abx -npo after midnight for OR for laparoscopic cholecystectomy in AM
[2018-07-06] MEDS: Enoxaparin 30 mg Syringe SC SCH (09:35)
--- NOTE | 2018-07-06 12:29 | CP.PCM.PN ---
Subjective - Date & Time of Evaluation Date of Evaluation: 07/06/18 Time of Evaluation: 11:20 - Subjective Subjective: The patient had a restful night and appears comfortable this morning. There has been no chills or fever and no nausea or vomiting. Abdominal pain is also absent and a mild degree of tenderness in the right hypochondrial area is still reported. Vital signs overnight show no fever and stable heart rate and blood pressure. There is no evidence of congestive cardiac failure. The patient has been able to lie virtually flat and carry on a conversation. Abdomen does not show distention or guarding or rigidity, only mild tenderness on deep palpation. Labs show resolution of leukocytosis as well as lipase level. There is mild elevation of bilirubin but, AST ALT and alkaline phosphatase have remained stable. His potassium was 3.2 mEq/L and potassium replacement was done. With intravenous fluid infusion his BUN and creatinine have significantly improved at 18 and 1.4 mg percent respectively. Tentatively scheduled for OR tomorrow morning. Objective - Vital Signs/Intake and Output Vital Signs (last 24 hours): Temp Pulse Resp BP Pulse Ox 97.9 F 105 H 20 145/75 100 07/06/18 08:52 07/06/18 09:36 07/06/18 08:52 07/06/18 09:36 07/06/18 08:52 - Medications Medications: Current Medications Enoxaparin Sodium (Lovenox) 30 mg SC DAILY [facility]; Protocol Last Admin: 07/06/18 09:35 Dose: 30 mg Lactated Ringer's (Lactated Ringer's) 1,000 mls @ 50 mls/hr IV .Q20H ANTONY Last Admin: 07/06/18 00:43 Dose: 50 mls/hr Piperacillin Sod/Tazobactam (Sod 3.375 gm/ Sodium Chloride) 100 mls @ 100 mls/hr IVPB Q6 [facility]; Protocol Last Admin: 07/06/18 09:37 Dose: 100 mls/hr Latanoprost (Xalatan Opht) 1 drop OD HS ANTONY Last Admin: 07/05/18 21:44 Dose: 1 drop Metoprolol Tartrate (Lopressor) 2.5 mg IVP Q6 ANTONY Last Admin: 07/06/18 09:36 Dose: 2.5 mg Morphine Sulfate (Morphine) 2 mg IVP Q4 PRN PRN Reason: Pain, severe (8-10) Last Admin: 07/05/18 00:39 Dose: 2 mg Ondansetron HCl (Zofran Inj) 4 mg IVP Q6 PRN PRN Reason: Nausea/Vomiting Pantoprazole Sodium (Protonix Inj) 40 mg IVP DAILY [facility] Last Admin: 07/06/18 09:35 Dose: 40 mg - Labs Labs: 07/06/18 04:41 07/06/18 04:41
[2018-07-06] MEDS: Latanoprost 0.005% Opht SOUTION OD SCH (21:41)
[2018-07-07] MEDS: Piperacillin/Tazobact 3.375 GM in Sodium Chloride 0.9% 100 ML IVPB SCH ×4 (03:39→21:27)
[2018-07-07] MEDS: Metoprolol 1 mg/ml Inj IVP SCH ×3 (03:39→16:20)
[2018-07-07 05:54] LABS: BASO # 0.1 K/uL (0.0-0.2); BASO % 1.1 % (0.0-2.0); EOS # 0.5 K/uL (0.0-0.7); EOS % 8.6 % (0.0-4.0); HEMOGLOBIN 10.7 g/dL (12.0-18.0); LYMPH # 0.8 K/uL (1.0-4.3); LYMPH % 14.4 % (20.0-40.0); MEAN CELL VOLUME 87.4 fl (80.0-94.0); MEAN CORPUSCULAR HEMOGLOBIN 28.7 pg (27.0-31.0); MEAN CORPUSCULAR HGB CONC 32.9 g/dL (33.0-37.0); MONO # 0.5 K/uL (0.0-0.8); MONO % 8.6 % (0.0-10.0); NEUT # 3.9 K/uL (1.8-7.0); NEUT % 67.3 % (50.0-75.0); NRBC % 0.1 % (0.0-0.0); RBC 3.74 Mil/uL (4.40-5.90); RED CELL DISTRIBUTION WIDTH 16.6 % (11.5-14.5); WHITE BLOOD COUNT 5.7 K/uL (4.8-10.8)
[2018-07-07 05:57] LABS: INR 1.3; PROTHROMBIN TIME 14.6 Seconds (9.8-13.1)
[2018-07-07 05:59] LABS: PARTIAL THROMBOPLASTIN TIME 34.8 Seconds (25.6-37.1)
[2018-07-07 06:05] LABS: ALB/GLOB RATIO 0.9 (1.0-2.1); ALBUMIN 3.4 g/dL (3.5-5.0); CALCIUM 8.4 mg/dL (8.4-10.2)
[2018-07-07] MEDS: Potassium CL 10mEq/100ml 100 ML IVPB SCH ×3 (09:57→12:00)
--- NOTE | 2018-07-07 10:19 | CP.PCM.PN ---
Subjective - Date & Time of Evaluation Date of Evaluation: 07/07/18 Time of Evaluation: 08:50 - Subjective Subjective: The patient was found sitting up in the chair breathing comfortably at 16 breaths/min. He reported a fairly comfortable night without any abdominal distention or nausea or vomiting or abdominal cramping. The telemetry shows sinus rhythm with rare episodes of atrial fibrillation or ventricular paced rhythm. His blood pressure was 126/74 mmHg. JVP was not elevated and there was no edema over his lower extremities. The abdomen was soft and there was no tenderness in the abdomen. Intestinal sounds were well heard. Lab data showed further drop in BUN and a stable creatinine at 1.4 mg percent. Potassium level was 3.4 mEq/L. An improvement over yesterday's potassium level. The patient is stable to proceed with his planned cholecystectomy. The risks of the procedure and the benefit has been discussed at length with the patient's family and the patient. Objective - Vital Signs/Intake and Output Vital Signs (last 24 hours): Temp Pulse Resp BP Pulse Ox 97.7 F 67 18 167/75 H 99 07/07/18 08:06 07/07/18 09:59 07/07/18 08:06 07/07/18 09:59 07/07/18 08:06 - Medications Medications: Current Medications Enoxaparin Sodium (Lovenox) 30 mg SC DAILY [facility]; Protocol Last Admin: 07/06/18 09:35 Dose: 30 mg Lactated Ringer's (Lactated Ringer's) 1,000 mls @ 50 mls/hr IV .Q20H [facility] Last Admin: 07/06/18 21:43 Dose: 50 mls/hr Piperacillin Sod/Tazobactam (Sod 3.375 gm/ Sodium Chloride) 100 mls @ 100 mls/hr IVPB Q6 [facility]; Protocol Last Admin: 07/07/18 09:00 Dose: 100 mls/hr Potassium Chloride (Potassium Chloride 10 Meq/100 Ml) 100 mls @ 100 mls/hr IVPB Q1 ANTONY Stop: 07/07/18 10:59 Last Admin: 07/07/18 09:57 Dose: 100 mls/hr Latanoprost (Xalatan Opht) 1 drop OD HS ANTONY Last Admin: 07/06/18 21:41 Dose: 1 drop Metoprolol Tartrate (Lopressor) 2.5 mg IVP Q6 [facility] Last Admin: 07/07/18 09:59 Dose: 2.5 mg Ondansetron HCl (Zofran Inj) 4 mg IVP Q6 PRN PRN Reason: Nausea/Vomiting Pantoprazole Sodium (Protonix Inj) 40 mg IVP DAILY [facility] Last Admin: 07/07/18 08:37 Dose: 40 mg - Labs Labs: 07/07/18 05:30 07/07/18 05:30 PT 14.6 Seconds (9.8-13.1) H 07/07/18 05:30 INR 1.3 07/07/18 05:30 APTT 34.8 Seconds (25.6-37.1) 07/07/18 05:30
[2018-07-07] MEDS ORDERED: Bupivacaine 0.5% Inj(30mL) ONE (11:49)
[2018-07-07] MEDS ORDERED: Iohexol 300 100 ML IJ ONE (12:15)
[2018-07-07] MEDS ORDERED: Succinylcholine Chloride 20 mg/ml Syr (5 ml) IV ONE (12:52)
[2018-07-07] MEDS ORDERED: Etomidate 20 mg/10ml Inj IV ONE (12:52)
[2018-07-07] MEDS ORDERED: ePHEDrine 50 mg/ml Inj ONE (13:00)
[2018-07-07] MEDS ORDERED: Rocuronium 10 mg/ml (5 ml) ONE (13:03)
[2018-07-07] MEDS ORDERED: Lactated Ringer's 1,000 ML IV ONE ×2 (13:36→18:15)
[2018-07-07] MEDS ORDERED: Oxycodone/Acetaminophen 5/325 mg Tab PO PRN (14:53)
--- NOTE | 2018-07-07 14:58 | PCM.SURG1 ---
Surgeon's Initial Post Op Note - Surgeon's Notes Surgeon: Dr. Omer Patient Coordinator Front Desk: Chadd Paredes Type of Anesthesia: General Endo, Local, Other Anesthesia Administered By: Dr. Sams Pre-Operative Diagnosis: Gallstone Pancreatitis Operative Findings: Gallstone Pancreatitis Post-Operative Diagnosis: Gallstone Pancreatitis, Acute cholecystitis Operation Performed: laparoscopic cholecystectomy with intraoperative cholangiogram Specimen/Specimens Removed: gallbladder Estimated Blood Loss: EBL {In ML}: 100 Blood Products Given: N/A Drains Used: No Drains Post-Op Condition: Fair Date of Surgery/Procedure: 07/07/18 Time of Surgery/Procedure: 14:59
[2018-07-07] MEDS ORDERED: Lactated Ringer's 1,000 ML IV SCH (15:30)
--- NOTE | 2018-07-07 15:43 | RAD ---
Date of service: 07/07/2018 PROCEDURE: INTRAOPERATIVE CHOLANGIOGRAM HISTORY: Cholecystectomy for cholecystitis with relatively extensive cholelithiasis. FINDINGS: Multiple spot fluoroscopic images are submitted. There is a punctate renal lucency identified at the distal most common bile duct with the CBD appearing quite dilated. Moderate dilatation of the pancreatic duct is appreciated at its distal most segment with cystic duct dilated as well. The distal CBD radiolucency may reflect a gas bubble given its relatively prominent lucency within a dilated CBD. Cholelithiasis is not completely excluded nevertheless. Clinical follow-up advised. Please refer to the operative report from surgeon. 40.1 sec of fluoro time was utilized with a cumulative radiation dose of 7.16 mGy.
[2018-07-07] MEDS ORDERED: Digoxin 250 mcg (0.25 mg) Tab PO ONE (20:59)
[2018-07-07] MEDS: Latanoprost 0.005% Opht SOUTION OD SCH (21:29)
[2018-07-07] MEDS: Oxycodone/Acetaminophen 5/325 mg Tab PO PRN (21:36)
[2018-07-08] MEDS: Metoprolol 1 mg/ml Inj IVP SCH ×4 (00:43→16:18)
--- NOTE | 2018-07-08 02:57 | OP ---
PROCEDURE DATE: 07/07/2018 PREOPERATIVE DIAGNOSES: Gallstone pancreatitis, acute cholecystitis. POSTOPERATIVE DIAGNOSES: Gallstone pancreatitis, acute cholecystitis. PROCEDURE: Laparoscopic cholecystectomy with an intraoperative cholangiogram. SURGEON: Ge Omer MD APPLICATION TESTER: Jon Berrios MD and CULLEN Stevens TYPE OF ANESTHESIA: General, local. FINDINGS: The patient had an inflamed gallbladder with the omentum attached to it, cystic duct and cystic artery clearly identified, critical view of safety obtained. SPECIMEN: Gallbladder. ESTIMATED BLOOD LOSS: 100 mL COMPLICATIONS: None. CONDITION: Stable. BRIEF HISTORY: This is an 78-year-old male with multiple medical comorbidities including CHF, previous CABG, currently has a placement, presented to the emergency room with complaints of right upper quadrant pain. The patient was found to have an elevated lipase along with a distended gallbladder with multiple stones. The patient was admitted with diagnosis of gallstone pancreatitis. With those medical comorbidities, the patient was also on Xarelto at home. The patient was placed on IV antibiotics and preoped for the operating room. Due to the patient being on Xarelto, anticoagulation was held for a period of 72 hours prior to surgical intervention. The patient was optimized and cleared for surgery. The patient along with the family were explained the risks and benefits of the procedure, not limited to bleeding, infection, possible injury to surrounding structures including the biliary tree. The patient agreed and surgical consent was obtained. DESCRIPTION OF PROCEDURE: On date of procedure, the patient was brought to the operating room, placed in supine position. Bilateral sequential devices were placed to the lower extremities. The patient then was placed under general endotracheal anesthesia which he tolerated well. The patient was not given any further prophylactic antibiotics. The patient was prepped and draped in usual sterile fashion using chlorhexidine sticks. After an adequate time-out, the abdominal cavity was entered using a Veress needle. The abdomen was then insufflated with 250 mmHg using CO2 with good opening pressures. We then proceeded to make an 1-cm infraumbilical vertical incision using an 11 scalpel. We then proceed to place an 11-mm trocar to the abdominal cavity. We then placed a 5-mm laparoscope into the abdominal cavity and performed a diagnostic laparoscopy. No gross injury noted from my initial trocar insertion, with some omental attachment to the gallbladder, liver fossa. We then proceeded to place three additional ports, the 11-mm port to the subxiphoid area and two to the right abdomen, all under direct visualization. At this point, the patient was positioned and we began our procedure. Using blunt dissection with the [place] dissector, omental attachments, gallbladder were bluntly dissected off. We then were able to grasp the gallbladder and the gallbladder was retracted to the right upper quadrant, which allowed us to identify the cystic duct. The gallbladder was inflamed and with a thickened wall. Using the suction ditching machine operating engineer, we were able to bluntly dissect some of the peritoneum off the cystic duct. Then we were able to identify the cystic artery which we were able to isolate and then we placed a 10-mm at the cystic artery to this time one proximally and subsequently transected. We then proceed to use the [place] dissector to isolate the cystic duct. Once the cystic duct was clearly isolated, we placed a proximal 10-mm clip patient service rep. We now prepared for intraoperative cholangiogram, using Endo Amando, a small maria teresa was made on the cystic duct. We then proceeded to place a cholangiogram into the cystic duct and subsequently inflated the balloon with 1 mL of saline. The catheter was flushed with saline and it was flushed freely. At this point, we performed our cholangiogram using a combination of Omnipaque mixed with saline. About 20 mL of Omnipaque was used. We were able to clearly identify the right and left hepatic duct and we saw the Omnipaque through the gallbladder. Having been satisfied with our cholangiogram, we now proceeded to cut the cystic duct, three distal clips were placed on the cystic duct and then the cystic duct was fully transected. At this point, we focused our attention to remove the gallbladder off the liver bed. We used the hook cautery in order to remove the gallbladder off the liver bed. The patient then had some oozing from the liver bed with the combination of the hook cautery, we were able to achieve hemostasis. Once the gallbladder was removed off the liver bed, it was placed in EndoCatch bag. We again focused our attention to the liver bed. We then noted some oozing, and given the patient will be on anticoagulation, we did place some Surgicel to the liver bed and the liver fossa. The area previously was then copiously irrigated and then we proceeded to suction out all the irrigation. We then proceed to remove the gallbladder through the umbilical port site under direct visualization. At this point, having terminated our procedure, we proceeded to close the umbilical port site using a [id number] UR-5 needle. The abdominal cavity was then re-insufflated again and the fossa was once again inspected. No gross bleeding noted. At this point, we proceeded to suction off remaining irrigation. Having been satisfied with our procedure, the abdominal cavity was desufflated. Once the abdominal cavity was desufflated, the umbilical port sites were closed with 4-0 Monocryl. The abdomen was cleaned and washed and Dermabond was applied to the port sites. The patient tolerated the procedure well, extubated without any complication and brought to the recovery room in stable condition. Ge Omer MD
[2018-07-08] MEDS: Piperacillin/Tazobact 3.375 GM in Sodium Chloride 0.9% 100 ML IVPB SCH ×4 (04:45→22:03)
[2018-07-08] MEDS ORDERED: Digoxin 125 mcg (0.125 mg) Tab PO ONE (05:06)
[2018-07-08 05:23] LABS: BASO % 0.4 % (0.0-2.0); EOS % 0.3 % (0.0-4.0); LYMPH # 0.7 K/uL (1.0-4.3); LYMPH % 6.8 % (20.0-40.0); MEAN CELL VOLUME 88.9 fl (80.0-94.0); MEAN CORPUSCULAR HEMOGLOBIN 29.2 pg (27.0-31.0); MEAN CORPUSCULAR HGB CONC 32.8 g/dL (33.0-37.0); MEAN PLATELET VOLUME 7.4 fl (7.2-11.7); MONO # 0.5 K/uL (0.0-0.8); MONO % 4.1 % (0.0-10.0); NEUT # 9.7 K/uL (1.8-7.0); NEUT % 88.4 % (50.0-75.0); PLATELET COUNT 146 K/uL (130-400); RBC 2.29 Mil/uL (4.40-5.90); RED CELL DISTRIBUTION WIDTH 16.7 % (11.5-14.5)
[2018-07-08 05:26] VITALS: PULSE 155
[2018-07-08 05:28] LABS: HEMOGLOBIN 6.7 g/dL (12.0-18.0); WHITE BLOOD COUNT 10.9 K/uL (4.8-10.8)
[2018-07-08 05:32] LABS: ALB/GLOB RATIO 0.8 (1.0-2.1); ALBUMIN 2.6 g/dL (3.5-5.0); CALCIUM 7.5 mg/dL (8.4-10.2)
--- NOTE | 2018-07-08 08:22 | CP.PCM.PN ---
<Mahogany Avila - Last Filed: 07/08/18 08:19> Subjective - Date & Time of Evaluation Date of Evaluation: 07/08/18 Time of Evaluation: 08:19 - Subjective Subjective: General surgery progress note for Dr. Libertad Avila, PGY-2 Pt seen/examined at bedside Pt reports some dyspnea overnight, tolerated clears. Had hypotension and tachycardia overnight, Hgb this AM was 6.7 from 10.7. Ordered 2 units pRBCs. Objective - Vital Signs/Intake and Output Vital Signs (last 24 hours): Temp Pulse Resp BP Pulse Ox 97.5 F L 123 H 18 91/64 L 100 07/08/18 08:09 07/08/18 08:09 07/08/18 08:09 07/08/18 08:09 07/08/18 08:09 Intake and Output: 07/08/18 07/08/18 06:59 18:59 Intake Total 1000 Output Total 625 Balance 375 - Medications Medications: Current Medications Enoxaparin Sodium (Lovenox) 30 mg SC DAILY ANTONY; Protocol Last Admin: 07/06/18 09:35 Dose: 30 mg Lactated Ringer's (Lactated Ringer's) 1,000 mls @ 50 mls/hr IV .Q20H ANTONY Last Admin: 07/06/18 21:43 Dose: 50 mls/hr Piperacillin Sod/Tazobactam (Sod 3.375 gm/ Sodium Chloride) 100 mls @ 100 ml s/hr IVPB Q6 ANTONY; Protocol Last Admin: 07/08/18 04:45 Dose: 100 mls/hr Lactated Ringer's (Lactated Ringer's) 1,000 mls @ 50 mls/hr IV .Q20H ANTONY Diltiazem HCl 125 mg/ Sodium (Chloride) 125 mls @ 5 mls/hr IV .Q24H ONE; Protocol Stop: 07/09/18 05:46 Last Admin: 07/08/18 06:25 Dose: 5 mg/hr, 5 mls/hr Latanoprost (Xalatan Opht) 1 drop OD HS ANTONY Last Admin: 07/07/18 21:29 Dose: 1 drop Metoprolol Tartrate (Lopressor) 2.5 mg IVP Q6 ANTONY Last Admin: 07/08/18 04:45 Dose: Not Given Morphine Sulfate (Morphine) 4 mg IVP Q4 PRN PRN Reason: Pain, severe (8-10) Ondansetron HCl (Zofran Inj) 4 mg IVP Q6 PRN PRN Reason: Nausea/Vomiting Oxycodone/Acetaminophen (Percocet 5/325 Mg Tab) 1 tab PO Q4 PRN PRN Reason: Pain, Mild (1-3) Stop: 07/10/18 14:54 Oxycodone/Acetaminophen (Percocet 5/325 Mg Tab) 2 tab PO Q4 PRN PRN Reason: Pain, moderate (4-7) Stop: 07/10/18 14:55 Last Admin: 07/07/18 21:36 Dose: 2 tab Pantoprazole Sodium (Protonix Inj) 40 mg IVP DAILY ANTONY Last Admin: 07/07/18 08:37 Dose: 40 mg - Labs Labs: 07/08/18 04:50 07/08/18 04:50 PT 14.6 Seconds (9.8-13.1) H 07/07/18 05:30 INR 1.3 07/07/18 05:30 APTT 34.8 Seconds (25.6-37.1) 07/07/18 05:30 - Constitutional Appears: Non-toxic, No Acute Distress - Head Exam Head Exam: ATRAUMATIC, NORMAL INSPECTION, NORMOCEPHALIC - Eye Exam Eye Exam: EOMI, Normal appearance - ENT Exam ENT Exam: Mucous Membranes Moist, Normal Exam - Neck Exam Neck Exam: Full ROM - Respiratory Exam Respiratory Exam: NORMAL BREATHING PATTERN - Cardiovascular Exam Cardiovascular Exam: Tachycardia, +S1, +S2 - GI/Abdominal Exam GI & Abdominal Exam: Distended (mildly), Soft, Tenderness (minimal, around incisions). absent: Firm, Guarding, Rigid Additional comments: incision sites with surgical glue in place, no induration or fluctuance - Extremities Exam Extremities Exam: Full ROM, Normal Inspection - Neurological Exam Neurological Exam: Alert, Awake, CN II-XII Intact, Oriented x3 - Psychiatric Exam Psychiatric exam: Normal Affect, Normal Mood - Skin Skin Exam: Dry, Intact, Normal Color, Warm Assessment and Plan - Assessment and Plan (Free Text) Assessment: 78M POD#1 s/p laparoscopic cholecystectomy with intraoperative cholangiogram wi th symptomatic anemia overnight Plan: Monitor H/H Montior for bleeding Transfuse pRBCs PRN Pain control Ok to advance diet to fulls, then advance as tolerated OOBTC with assistance Encourage IS use ICU consult for Afib w/RVR & symptomatic anemia Further care as per primary team RAÚL Avila, PGY-2 <Ge Omer - Last Filed: 07/08/18 11:13> Objective - Vital Signs/Intake and Output Vital Signs (last 24 hours): Temp Pulse Resp BP Pulse Ox 98.4 F 141 H 28 H 106/58 L 100 07/08/18 10:45 07/08/18 10:45 07/08/18 10:45 07/08/18 10:45 07/08/18 10:45 Intake and Output: 07/08/18 07/08/18 06:59 18:59 Intake Total 1000 0 Output Total 625 Balance 375 0 - Medications Medications: Current Medications Enoxaparin Sodium (Lovenox) 30 mg SC DAILY ANTONY; Protocol Last Admin: 07/08/18 09:10 Dose: 30 mg Lactated Ringer's (Lactated Ringer's) 1,000 mls @ 50 mls/hr IV .Q20H ANTONY Last Admin: 07/06/18 21:43 Dose: 50 mls/hr Piperacillin Sod/Tazobactam (Sod 3.375 gm/ Sodium Chloride) 100 mls @ 100 mls/hr IVPB Q6 ANTONY; Protocol Last Admin: 07/08/18 04:45 Dose: 100 mls/hr Lactated Ringer's (Lactated Ringer's) 1,000 mls @ 50 mls/hr IV .Q20H ANTONY Diltiazem HCl 125 mg/ Sodium (Chloride) 125 mls @ 5 mls/hr IV .Q24H ONE; Protocol Stop: 07/09/18 05:46 Last Admin: 07/08/18 06:25 Dose: 5 mg/hr, 5 mls/hr Latanoprost (Xalatan Opht) 1 drop OD HS ANTONY Last Admin: 07/07/18 21:29 Dose: 1 drop Metoprolol Tartrate (Lopressor) 2.5 mg IVP Q6 ANTONY Last Admin: 07/08/18 04:45 Dose: Not Given Morphine Sulfate (Morphine) 4 mg IVP Q4 PRN PRN Reason: Pain, severe (8-10) Ondansetron HCl (Zofran Inj) 4 mg IVP Q6 PRN PRN Reason: Nausea/Vomiting Oxycodone/Acetaminophen (Percocet 5/325 Mg Tab) 1 tab PO Q4 PRN PRN Reason: Pain, Mild (1-3) Stop: 07/10/18 14:54 Oxycodone/Acetaminophen (Percocet 5/325 Mg Tab) 2 tab PO Q4 PRN PRN Reason: Pain, moderate (4-7) Stop: 07/10/18 14:55 Last Admin: 07/07/18 21:36 Dose: 2 tab Pantoprazole Sodium (Protonix Inj) 40 mg IVP DAILY ANTONY Last Admin: 07/07/18 08:37 Dose: 40 mg - Labs Labs: 07/08/18 04:50 07/08/18 04:50 PT 14.6 Seconds (9.8-13.1) H 07/07/18 05:30 INR 1.3 07/07/18 05:30 APTT 34.8 Seconds (25.6-37.1) 07/07/18 05:30 Assessment and Plan - Assessment and Plan (Free Text) Plan: seen at bedside, POD # 1 s/p laparoscopic cholecystectomy. Pt resting comfortably, reports abdominal distention. Pt is tolerating clear liquids. Pt hypotensive tachycardic found to have a drop in hemoglobin this morning to 6.7. Pt will be transfused 2 units PRBC. gen: awake, alert, NAD HEENT: nc/at, eomi, perrla no acute respiratory distress abd: soft, distended, incional tenderness, right flank ecchymosis, lap port incisions c/d/i 78yo M s/p laparoscopic cholecystectomy POD #1 -pain control -advance to regular diet -transfuse 2units pRBC -hold all anticoagulation -repeat labs in am
--- NOTE | 2018-07-08 08:42 | CP.PCM.PN ---
Subjective - Date & Time of Evaluation Date of Evaluation: 07/08/18 Time of Evaluation: 08:00 - Subjective Subjective: Postoperatively the patient has displayed atrial fibrillation with rapid heart rate since last evening. Intravenous digoxin has not significantly slowed his heart rate down.. His systolic blood pressure has mostly been between 80 and 90 mmHg. The patient denies any chills or vomiting but does report abdominal discomfort following laparoscopic surgery. He has been able to lie virtually flat and breathe comfortably and can carry on a conversation. Initially when Villa catheter was inserted last evening 300 cc of urine were removed. Subsequently the patient has voided only 100 220 mL of urine over the last 8 hours. During this examination the patient was alert and awake, afebrile breathing at 16 to 18 breaths/min. His skin was dry and his extremities were warm. On intravenous Cardizem at 5 mL/h his heart rate was 130 bpm irregularly irregular with a blood pressure of 94/70 mmHg. His jugular venous pressure was not elevated and there were no rales. Abdomen was distended and tympanic. There was generalized tenderness but no guarding or rigidity. Surgical wound was clean. There was a brief apical systolic murmur but no gallop rhythm. Inspiratory effort was poor but no rales were audible at bases. His electrocardiogram this morning shows atrial flutter fibrillation with a pattern of right bundle branch block. The Villa bag shows approximately 50 cc of urine in the last couple of hours. Lab data shows a hemoglobin of 6.7 g at 5 AM today as compared to 10.6 g yesterday morning. His creatinine is up to 2 mg percent. His electrolytes were normal. There was mild leukocytosis. Postoperatively the patient appears anemic possibly secondary to blood loss. He will be transferred to intensive care unit for closer observation and a blood transfusion I have discussed his case with the marble machine tender. IV antibiotics continue. Objective - Vital Signs/Intake and Output Vital Signs (last 24 hours): Temp Pulse Resp BP Pulse Ox 97.5 F L 123 H 18 91/64 L 100 07/08/18 08:19 07/08/18 08:19 07/08/18 08:19 07/08/18 08:19 07/08/18 08:09 Intake and Output: 07/08/18 07/08/18 06:59 18:59 Intake Total 1000 0 Output Total 625 Balance 375 0 - Medications Medications: Current Medications Enoxaparin Sodium (Lovenox) 30 mg SC DAILY [facility]; Protocol Last Admin: 07/06/18 09:35 Dose: 30 mg Lactated Ringer's (Lactated Ringer's) 1,000 mls @ 50 mls/hr IV .Q20H [facility] Last Admin: 07/06/18 21:43 Dose: 50 mls/hr Piperacillin Sod/Tazobactam (Sod 3.375 gm/ Sodium Chloride) 100 mls @ 100 mls/hr IVPB Q6 [facility]; Protocol Last Admin: 07/08/18 04:45 Dose: 100 mls/hr Lactated Ringer's (Lactated Ringer's) 1,000 mls @ 50 mls/hr IV .Q20H ANTONY Diltiazem HCl 125 mg/ Sodium (Chloride) 125 mls @ 5 mls/hr IV .Q24H ONE; Protocol Stop: 07/09/18 05:46 Last Admin: 07/08/18 06:25 Dose: 5 mg/hr, 5 mls/hr Latanoprost (Xalatan Opht) 1 drop OD HS [facility] Last Admin: 07/07/18 21:29 Dose: 1 drop Metoprolol Tartrate (Lopressor) 2.5 mg IVP Q6 [facility] Last Admin: 07/08/18 04:45 Dose: Not Given Morphine Sulfate (Morphine) 4 mg IVP Q4 PRN PRN Reason: Pain, severe (8-10) Ondansetron HCl (Zofran Inj) 4 mg IVP Q6 PRN PRN Reason: Nausea/Vomiting Oxycodone/Acetaminophen (Percocet 5/325 Mg Tab) 1 tab PO Q4 PRN PRN Reason: Pain, Mild (1-3) Stop: 07/10/18 14:54 Oxycodone/Acetaminophen (Percocet 5/325 Mg Tab) 2 tab PO Q4 PRN PRN Reason: Pain, moderate (4-7) Stop: 07/10/18 14:55 Last Admin: 07/07/18 21:36 Dose: 2 tab Pantoprazole Sodium (Protonix Inj) 40 mg IVP DAILY [facility] Last Admin: 07/07/18 08:37 Dose: 40 mg - Labs Labs: 07/08/18 04:50 07/08/18 04:50 PT 14.6 Seconds (9.8-13.1) H 07/07/18 05:30 INR 1.3 07/07/18 05:30 APTT 34.8 Seconds (25.6-37.1) 07/07/18 05:30
[2018-07-08] MEDS: Enoxaparin 30 mg Syringe SC SCH (09:10)
--- NOTE | 2018-07-08 10:07 | CARD ---
APPROVED REPORT Date of service: 07/08/2018 EKG Measurement Heart [id number] <Conclusion> Atrial flutter with variable AV block Right bundle branch block Non specific T-wave changes Abnormal ECG
[2018-07-08 10:10] LABS: ANISOCYTOSIS SLIGHT; BANDS 13 % (0-2); BASOPHIL 1 % (0-2); BURR CELLS SLIGHT; GIANT PLATELETS PRESENT; LARGE PLATELETS PRESENT; LYMPHOCYTE 6 % (20-50); MICROCYTOSIS SLIGHT; MONOCYTE 3 % (0-10); NEUTROPHIL 77 % (42-75); PLATELET ESTIMATE NORMAL (NORMAL); POIKILOCYTOSIS SLIGHT; TOTAL CELLS COUNTED 100
[2018-07-08 10:11] LABS: OVALOCYTES SLIGHT; TOXIC GRANULATION PRESENT
[2018-07-08] MEDS ORDERED: Metoprolol 1 mg/ml Inj IVP ONE ×2 (16:04→18:04)
--- NOTE | 2018-07-08 16:04 | CP.CCUPN ---
CCU Subjective - Physician Review Subjective (Free Text): 07/08/18 17:43 The patient was Seen/interviewed and examined by me at the bedside during ICU round, Medical records reviewed and Management issues were discussed and formulated with the house staff. Events reviewed Mr Jackson is a 78 years old male with past medical history of congestive heart failure with reduced reduced ejection fraction of 30-35%, chronic kidney disease, coronary artery disease a status post CABG, chronic obstructive pulmonary disease, chronic atrial fibrillation and status post pacemaker Who initially presented to the emergency room with complaint of diffuse abdominal pain, with diagnosed with gallstone pancreatitis Now he is postop day #1 from laparoscopic cholecystectomy with Intra-Op operative cholangiogram Overnight he was in atrial fibrillation with RVR receive IV digoxin x2 and was started on Cardizem drip This morning he is hypotensive and tachycardic, labs significant for hemoglobin drop and he was transferred to the intensive care unit for further management and hemodynamic monitoring Patient alert awake and oriented, is comfortable and in no apparent distress Abdominal pain is well controlled, denies fever/chills, chest pain, shortness of breath, nausea and vomiting Blood pressure is in the good range but remains tachycardic on Cardizem drip, the rate was increased to 7.5 milligrams an hour 2 units of blood transfusion stat was transfused Patient is afebrile on empiric broad-spectrum antibiotic coverage Critical Care Time Spent (in minutes): 35 CCU Objective - Vital Signs / Intake & Output Vital Signs (Last 4 hours): Vital Signs Temp Pulse Resp BP Pulse Ox 07/08/18 14:52 97.7 F 143 H 20 106/64 07/08/18 14:00 143 H 22 106/64 99 07/08/18 13:00 143 H 21 97/58 L 100 07/08/18 12:33 97.8 F 143 H 22 90/61 L 07/08/18 12:14 98.7 F 143 H 22 94/62 L Intake and Output (Last 8hrs): Intake & Output 07/08/18 07/08/18 07/08/18 06:59 14:59 22:59 Intake Total 1000 1550 Output Total 625 Balance 375 1550 Intake: IV 800 50 Intake, Piggyback 200 100 Blood Product 1300 Red Blood Cells Cpd As1 325 Lr Unit [id number] Red Blood Cells Cpd As1 325 Lr Unit [id number] Other 100 Red Blood Cells Cpd As1 50 Lr Unit [id number] Red Blood Cells Cpd As1 50 Lr Unit [id number] Output: Urine 625 Urethral (Villa) 325 Stool 0 - Medications Active Medications: Active Medications Generic Name Dose Route Start Last Admin Trade Name Freq PRN Reason Stop Dose Admin Enoxaparin Sodium 30 mg 07/05/18 09:00 07/08/18 09:10 Lovenox SC 30 mg DAILY ANTONY Administration Protocol Piperacillin Sod/Tazobactam 100 mls @ 100 mls/hr 07/04/18 10:00 07/08/18 13:19 Sod 3.375 gm/ Sodium Chloride IVPB 100 mls/hr Q6 ANTONY Administration Protocol Lactated Ringer's 1,000 mls @ 50 mls/hr 07/07/18 15:30 Lactated Ringer's IV .Q20H ANTONY Diltiazem HCl 125 mg/ Sodium 125 mls @ 5 mls/hr 07/08/18 05:47 07/08/18 12:53 Chloride IV 07/09/18 05:46 7.5 mg/hr .Q24H ONE 7.5 mls/hr Titration Protocol 5 MG/HR Latanoprost 1 drop 07/04/18 22:00 07/07/18 21:29 Xalatan Opht OD 1 drop HS ANTONY Administration Metoprolol Tartrate 2.5 mg 07/04/18 10:00 07/08/18 11:45 Lopressor IVP 2.5 mg Q6 ANTONY Administration Ondansetron HCl 4 mg 07/04/18 08:08 Zofran Inj IVP Q6 PRN Nausea/Vomiting Oxycodone/Acetaminophen 1 tab 07/07/18 14:53 Percocet 5/325 Mg Tab PO 07/10/18 14:54 Q4 PRN Pain, Mild (1-3) Oxycodone/Acetaminophen 2 tab 07/07/18 14:54 07/07/18 21:36 Percocet 5/325 Mg Tab PO 07/10/18 14:55 2 tab Q4 PRN Administration Pain, moderate (4-7) Pantoprazole Sodium 40 mg 07/05/18 12:00 07/08/18 11:47 Protonix Inj IVP 40 mg DAILY ANTONY Administration - Patient Studies Lab Studies: Lab Studies 07/08/18 07/08/18 07/08/18 Range/Units 06:25 04:50 04:50 WBC 10.9 H D (4.8-10.8) K/uL RBC 2.29 L (4.40-5.90) Mil/uL Hgb 6.7 L D (12.0-18.0) g/dL Hct 20.3 L (35.0-51.0) % MCV 88.9 (80.0-94.0) fl MCH 29.2 (27.0-31.0) pg MCHC 32.8 L (33.0-37.0) g/dL RDW 16.7 H (11.5-14.5) % Plt Count 146 (130-400) K/uL MPV 7.4 (7.2-11.7) fl Neut % (Auto) 88.4 H (50.0-75.0) % Lymph % (Auto) 6.8 L (20.0-40.0) % Hooker % (Auto) 4.1 (0.0-10.0) % Eos % (Auto) 0.3 (0.0-4.0) % Baso % (Auto) 0.4 (0.0-2.0) % Neut # (Auto) 9.7 H (1.8-7.0) K/uL Lymph # (Auto) 0.7 L (1.0-4.3) K/uL Hooker # (Auto) 0.5 (0.0-0.8) K/uL Eos # (Auto) 0.0 (0.0-0.7) K/uL Baso # (Auto) 0.0 (0.0-0.2) K/uL Neutrophils % (Manual) 77 H (42-75) % Band Neutrophils % 13 H* (0-2) % Lymphocytes % (Manual) 6 L (20-50) % Monocytes % (Manual) 3 (0-10) % Basophils % (Manual) 1 (0-2) % Toxic Granulation Present Platelet Estimate Normal (NORMAL) Large Platelets Present Giant Platelets Present Poikilocytosis (manual Slight Anisocytosis (manual) Slight Microcytosis (manual) Slight Ovalocytes Slight Sindi Cells Slight Sodium 138 (132-148) mmol/l Potassium 4.3 (3.6-5.0) MMOL/L Chloride 111 H (98-107) mmol/L Carbon Dioxide 14 L (22-30) mmol/L Anion Gap 17 (10-20) BUN 18 (9-20) mg/dl Creatinine 2.0 H (0.8-1.5) mg/dl Est GFR ( Amer) 39 Est GFR (Non-Af Amer) 32 POC Glucose (mg/dL) (65-110) mg/dL Random Glucose 132 H (75-110) mg/dL Calcium 7.5 L (8.4-10.2) mg/dL Magnesium 1.6 (1.6-2.3) MG/DL Total Bilirubin 1.6 H (0.2-1.3) mg/dl AST 105 H D (17-59) U/L ALT 78 H D (21-72) U/L Alkaline Phosphatase 43 (38-126) U/L Total Protein 5.6 L (6.3-8.2) G/DL Albumin 2.6 L D (3.5-5.0) g/dL Globulin 3.0 (2.2-3.9) gm/dL Albumin/Globulin Ratio 0.8 L (1.0-2.1) Blood Type B POSITIVE Antibody Screen Negative Crossmatch See Detail BBK History Checked Patient has bt 07/07/18 Range/Units 23:01 WBC (4.8-10.8) K/uL RBC (4.40-5.90) Mil/uL Hgb (12.0-18.0) g/dL Hct (35.0-51.0) % MCV (80.0-94.0) fl MCH (27.0-31.0) pg MCHC (33.0-37.0) g/dL RDW (11.5-14.5) % Plt Count (130-400) K/uL MPV (7.2-11.7) fl Neut % (Auto) (50.0-75.0) % Lymph % (Auto) (20.0-40.0) % Hooker % (Auto) (0.0-10.0) % Eos % (Auto) (0.0-4.0) % Baso % (Auto) (0.0-2.0) % Neut # (Auto) (1.8-7.0) K/uL Lymph # (Auto) (1.0-4.3) K/uL Hooker # (Auto) (0.0-0.8) K/uL Eos # (Auto) (0.0-0.7) K/uL Baso # (Auto) (0.0-0.2) K/uL Neutrophils % (Manual) (42-75) % Band Neutrophils % (0-2) % Lymphocytes % (Manual) (20-50) % Monocytes % (Manual) (0-10) % Basophils % (Manual) (0-2) % Toxic Granulation Platelet Estimate (NORMAL) Large Platelets Giant Platelets Poikilocytosis (manual Anisocytosis (manual) Microcytosis (manual) Ovalocytes Sindi Cells Sodium (132-148) mmol/l Potassium (3.6-5.0) MMOL/L Chloride (98-107) mmol/L Carbon Dioxide (22-30) mmol/L Anion Gap (10-20) BUN (9-20) mg/dl Creatinine (0.8-1.5) mg/dl Est GFR ( Amer) Est GFR (Non-Af Amer) POC Glucose (mg/dL) 166 H (65-110) mg/dL Random Glucose (75-110) mg/dL Calcium (8.4-10.2) mg/dL Magnesium (1.6-2.3) MG/DL Total Bilirubin (0.2-1.3) mg/dl AST (17-59) U/L ALT (21-72) U/L Alkaline Phosphatase (38-126) U/L Total Protein (6.3-8.2) G/DL Albumin (3.5-5.0) g/dL Globulin (2.2-3.9) gm/dL Albumin/Globulin Ratio (1.0-2.1) Blood Type Antibody Screen Crossmatch BBK History Checked Laboratory Results - last 24 hr 07/07/18 07/08/18 07/08/18 23:01 04:50 04:50 WBC 10.9 H D RBC 2.29 L Hgb 6.7 L D Hct 20.3 L MCV 88.9 MCH 29.2 MCHC 32.8 L RDW 16.7 H Plt Count 146 MPV 7.4 Neut % (Auto) 88.4 H Lymph % (Auto) 6.8 L Hooker % (Auto) 4.1 Eos % (Auto) 0.3 Baso % (Auto) 0.4 Neut # (Auto) 9.7 H Lymph # (Auto) 0.7 L Hooker # (Auto) 0.5 Eos # (Auto) 0.0 Baso # (Auto) 0.0 Neutrophils % (Manual) 77 H Band Neutrophils % 13 H* Lymphocytes % (Manual) 6 L Monocytes % (Manual) 3 Basophils % (Manual) 1 Toxic Granulation Present Platelet Estimate Normal Large Platelets Present Giant Platelets Present Poikilocytosis (manual Slight Anisocytosis (manual) Slight Microcytosis (manual) Slight Ovalocytes Slight Sindi Cells Slight Sodium 138 Potassium 4.3 Chloride 111 H Carbon Dioxide 14 L Anion Gap 17 BUN 18 Creatinine 2.0 H Est GFR ( Amer) 39 Est GFR (Non-Af Amer) 32 POC Glucose (mg/dL) 166 H Random Glucose 132 H Calcium 7.5 L Magnesium 1.6 Total Bilirubin 1.6 H AST 105 H D ALT 78 H D Alkaline Phosphatase 43 Total Protein 5.6 L Albumin 2.6 L D Globulin 3.0 Albumin/Globulin Ratio 0.8 L Blood Type Antibody Screen Crossmatch BBK History Checked 07/08/18 06:25 WBC RBC Hgb Hct MCV MCH MCHC RDW Plt Count MPV Neut % (Auto) Lymph % (Auto) Hooker % (Auto) Eos % (Auto) Baso % (Auto) Neut # (Auto) Lymph # (Auto) Hooker # (Auto) Eos # (Auto) Baso # (Auto) Neutrophils % (Manual) Band Neutrophils % Lymphocytes % (Manual) Monocytes % (Manual) Basophils % (Manual) Toxic Granulation Platelet Estimate Large Platelets Giant Platelets Poikilocytosis (manual Anisocytosis (manual) Microcytosis (manual) Ovalocytes [place] Cells Sodium Potassium Chloride Carbon Dioxide Anion Gap BUN Creatinine Est GFR ( Amer) Est GFR (Non-Af Amer) POC Glucose (mg/dL) Random Glucose Calcium Magnesium Total Bilirubin AST ALT Alkaline Phosphatase Total Protein Albumin Globulin Albumin/Globulin Ratio Blood Type B POSITIVE Antibody Screen Negative Crossmatch See Detail BBK History Checked Patient has bt EKG/Cardiology Studies: Cardiology / EKG Studies 07/08/18 EKG [ELECTROCARDIOGRAM] Stat Comment: Mode Of Transportation: Reason For Exam: tachycardia Fingerstick Blood Sugar Results: 99 Critical Care Progress Note - Extremities/Vascular Does the Patient have a Central Venous Catheter?: No Does the Patient need a Central Venous Catheter?: No Does the Patient have a Villa Catheter?: Yes Does the Patient need a Villa Catheter?: Yes - Nutrition Nutrition: Nutrition Category Date Time Status Heart Healthy Diet [DIET] Diets 07/08/18 Lunch Active Assessment/Plan (1) Gallstone pancreatitis Current Visit: Yes Status: Acute Comment: POD #1 S/P laparoscopic cholecystectomy with intraoperative cholangiogram Clear liquid diet, Advance as tolerate Emperic Antibiotics Pain control Monitor urine output Villa to be removed tomorrow (2) Atrial fibrillation with rapid ventricular response Current Visit: Yes Status: Acute Comment: Cardiology consult appreciated Continue Cardizem drip PRN IV Lopressor Trend troponin level (3) Acute blood loss anemia Current Visit: Yes Status: Acute Comment: Transfuse 2 units of packed red blood cell Trend H&H and serial abdominal exam to rule out active bleeding (4) COPD (chronic obstructive pulmonary disease) Current Visit: No Status: Chronic Priority: High Comment: Bronchodilator nebulizer as needed (5) Chronic kidney disease, stage III (moderate) Current Visit: No Status: Chronic Priority: High - Assessment and Plan (Free Text) Assessment: # HOB maintained at 30 degrees. # Encouraged use of IS # Stress Ulcer prophylaxis with Protonix 40 mg IVP QD # DVT prophylaxis with SCD and Lovenox # Code Status: Full code # Total critical care time 35 minutes
[2018-07-08 16:21] LABS: HEMOGLOBIN 9.3 g/dL (12.0-18.0); MEAN CELL VOLUME 86.5 fl (80.0-94.0); MEAN CORPUSCULAR HEMOGLOBIN 29.2 pg (27.0-31.0); MEAN CORPUSCULAR HGB CONC 33.7 g/dL (33.0-37.0); RBC 3.2 Mil/uL (4.40-5.90); RED CELL DISTRIBUTION WIDTH 16.1 % (11.5-14.5); WHITE BLOOD COUNT 12.7 K/uL (4.8-10.8)
[2018-07-08 16:26] LABS: INR 1.5; PROTHROMBIN TIME 17.2 Seconds (9.8-13.1)
[2018-07-08 16:27] LABS: ALB/GLOB RATIO 0.9 (1.0-2.1); ALBUMIN 2.7 g/dL (3.5-5.0); CALCIUM 7.4 mg/dL (8.4-10.2)
[2018-07-08 16:29] LABS: PARTIAL THROMBOPLASTIN TIME 35.7 Seconds (25.6-37.1)
[2018-07-08] MEDS: Latanoprost 0.005% Opht SOUTION OD SCH (21:18)
[2018-07-09] MEDS: Metoprolol 1 mg/ml Inj IVP SCH ×2 (00:06→05:05)
[2018-07-09] MEDS: Piperacillin/Tazobact 3.375 GM in Sodium Chloride 0.9% 100 ML IVPB SCH ×4 (03:52→21:45)
[2018-07-09 05:52] LABS: BASO # 0.1 K/uL (0.0-0.2); BASO % 0.5 % (0.0-2.0); EOS # 0.4 K/uL (0.0-0.7); EOS % 3.2 % (0.0-4.0); HEMOGLOBIN 8.5 g/dL (12.0-18.0); LYMPH # 0.8 K/uL (1.0-4.3); MEAN CORPUSCULAR HEMOGLOBIN 29.1 pg (27.0-31.0); MEAN CORPUSCULAR HGB CONC 33.5 g/dL (33.0-37.0); MONO # 0.9 K/uL (0.0-0.8); MONO % 6.4 % (0.0-10.0); NEUT # 11.9 K/uL (1.8-7.0); NEUT % 83.9 % (50.0-75.0); NRBC % 0.1 % (0.0-0.0); RBC 2.92 Mil/uL (4.40-5.90); RED CELL DISTRIBUTION WIDTH 16.4 % (11.5-14.5); WHITE BLOOD COUNT 14.1 K/uL (4.8-10.8)
[2018-07-09 06:35] LABS: ALB/GLOB RATIO 0.9 (1.0-2.1); ALBUMIN 2.8 g/dL (3.5-5.0); CALCIUM 7.7 mg/dL (8.4-10.2)
[2018-07-09] MEDS: Insulin Lispro (humaLOG) 100 Units/ml Inj SC SCH ×4 (06:51→21:48)
[2018-07-09] MEDS ORDERED: Metoprolol 1 mg/ml Inj ONE (08:31)
[2018-07-09] MEDS ORDERED: Metoprolol 1 mg/ml Inj IVP ONE (09:15)
--- NOTE | 2018-07-09 09:21 | CP.PCM.PN ---
Subjective - Date & Time of Evaluation Date of Evaluation: 07/09/18 Time of Evaluation: 08:40 - Subjective Subjective: With multiple intravenous doses of metoprolol the patient eventually converted from atrial flutter and 2-1 block to sinus rhythm. bus monitor shows sinus rhythm at physiological rates until 744 this morning when patient converted back to atrial fibrillation with a heart rate between 100 and 130 bpm. His extremities are warm and his nailbeds were pink. His skin was dry and his mentation is clear. His blood pressure is 120/74 mmHg. Jugular venous pressure is mildly elevated. There is no pedal edema and there are very few rales at both bases. The pulse oximetry with O2 supplement with nasal cannula at 2 L/min is 97 to 98%. Lab data shows this morning his hemoglobin has dropped again to 8.5 g. Mild leukocytosis persists. His azotemia shows a mild further increase from yesterday as expected after a prolonged bout of supraventricular tachycardias and a heart rate mostly between 140 and 170 bpm yesterday. The abdominal distention is much less and active intestinal sounds are well heard. The patient cannot see if she has passed flatus. There has been no BM. I have ordered an immediate dose of 5 mg of metoprolol to be given intravenously and subsequently oral metoprolol. A dose of 20 mg of furosemide was given an intravenous fluids were discontinued. His CBC and complete metabolic profile will be monitored. The patient is on intravenous Zosyn which also covers a positive urine culture of last admission which showed evidence of E. coli UTI. Objective - Vital Signs/Intake and Output Vital Signs (last 24 hours): Temp Pulse Resp BP Pulse Ox 97.5 F L 105 H 19 119/63 99 07/09/18 08:23 07/09/18 08:23 07/09/18 08:23 07/09/18 08:23 07/09/18 08:23 Intake and Output: 07/09/18 07/09/18 06:59 18:59 Intake Total 376 Output Total 250 Balance 126 - Medications Medications: Current Medications Enoxaparin Sodium (Lovenox) 30 mg SC DAILY [facility]; Protocol Last Admin: 07/08/18 09:10 Dose: 30 mg Furosemide (Lasix) 20 mg IVP ONCE ONE Stop: 07/09/18 09:11 Piperacillin Sod/Tazobactam (Sod 3.375 gm/ Sodium Chloride) 100 mls @ 100 mls/hr IVPB Q6 [facility]; Protocol Last Admin: 07/09/18 03:52 Dose: 100 mls/hr Insulin Human Lispro (Humalog) 0 units SC ACHS [facility]; Protocol Last Admin: 07/09/18 06:51 Dose: Not Given Latanoprost (Xalatan Opht) 1 drop OD HS [facility] Last Admin: 07/08/18 21:18 Dose: 1 drop Metoprolol Tartrate (Lopressor) 150 mg PO Q12 [facility] Metoprolol Tartrate (Lopressor) 5 mg IVP ONCE ONE Stop: 07/09/18 09:16 Ondansetron HCl (Zofran Inj) 4 mg IVP Q6 PRN PRN Reason: Nausea/Vomiting Oxycodone/Acetaminophen (Percocet 5/325 Mg Tab) 1 tab PO Q4 PRN PRN Reason: Pain, Mild (1-3) Stop: 07/10/18 14:54 Last Admin: 07/09/18 03:51 Dose: 1 tab Oxycodone/Acetaminophen (Percocet 5/325 Mg Tab) 2 tab PO Q4 PRN PRN Reason: Pain, moderate (4-7) Stop: 07/10/18 14:55 Last Admin: 07/07/18 21:36 Dose: 2 tab Pantoprazole Sodium (Protonix Inj) 40 mg IVP DAILY [facility] Last Admin: 07/08/18 11:47 Dose: 40 mg - Labs Labs: 07/09/18 05:40 07/09/18 05:40 PT 17.2 Seconds (9.8-13.1) H 07/08/18 16:13 INR 1.5 07/08/18 16:13 APTT 35.7 Seconds (25.6-37.1) 07/08/18 16:13
[2018-07-09] MEDS: Oxycodone/Acetaminophen 5/325 mg Tab PO PRN (10:19)
--- NOTE | 2018-07-09 11:11 | CP.PCM.PN ---
<Milla CraftJayashreeleonides - Last Filed: 07/09/18 11:11> Subjective - Date & Time of Evaluation Date of Evaluation: 07/09/18 Time of Evaluation: 11:09 - Subjective Subjective: Surgery: Dr. Omer Patient reports tolerating diet. Pain is well controlled. Denies chest pain or SOB. No f/c. Objective - Vital Signs/Intake and Output Vital Signs (last 24 hours): Temp Pulse Resp BP Pulse Ox 97.5 F L 120 H 19 117/62 99 07/09/18 08:23 07/09/18 08:40 07/09/18 08:23 07/09/18 10:05 07/09/18 08:23 Intake and Output: 07/09/18 07/09/18 06:59 18:59 Intake Total 376 Output Total 250 Balance 126 - Medications Medications: Current Medications Enoxaparin Sodium (Lovenox) 30 mg SC DAILY [facility]; Protocol Last Admin: 07/08/18 09:10 Dose: 30 mg Piperacillin Sod/Tazobactam (Sod 3.375 gm/ Sodium Chloride) 100 mls @ 100 mls/hr IVPB Q6 [facility]; Protocol Last Admin: 07/09/18 10:01 Dose: 100 mls/hr Insulin Human Lispro (Humalog) 0 units SC ACHS [facility]; Protocol Last Admin: 07/09/18 06:51 Dose: Not Given Latanoprost (Xalatan Opht) 1 drop OD HS [facility] Last Admin: 07/08/18 21:18 Dose: 1 drop Metoprolol Tartrate (Lopressor) 150 mg PO Q12 [facility] Ondansetron HCl (Zofran Inj) 4 mg IVP Q6 PRN PRN Reason: Nausea/Vomiting Oxycodone/Acetaminophen (Percocet 5/325 Mg Tab) 1 tab PO Q4 PRN PRN Reason: Pain, Mild (1-3) Stop: 07/10/18 14:54 Last Admin: 07/09/18 03:51 Dose: 1 tab Oxycodone/Acetaminophen (Percocet 5/325 Mg Tab) 2 tab PO Q4 PRN PRN Reason: Pain, moderate (4-7) Stop: 07/10/18 14:55 Last Admin: 07/09/18 10:19 Dose: 2 tab Pantoprazole Sodium (Protonix Inj) 40 mg IVP DAILY [facility] Last Admin: 07/09/18 10:00 Dose: 40 mg - Labs Labs: 07/09/18 05:40 07/09/18 05:40 PT 17.2 Seconds (9.8-13.1) H 07/08/18 16:13 INR 1.5 07/08/18 16:13 APTT 35.7 Seconds (25.6-37.1) 07/08/18 16:13 - Constitutional Appears: No Acute Distress, Chronically Ill - Head Exam Head Exam: ATRAUMATIC, NORMOCEPHALIC - Eye Exam Eye Exam: EOMI, Normal appearance - ENT Exam ENT Exam: Mucous Membranes Moist - Respiratory Exam Respiratory Exam: NORMAL BREATHING PATTERN. absent: Respiratory Distress - Cardiovascular Exam Cardiovascular Exam: Tachycardia, Irregular Rhythm - GI/Abdominal Exam GI & Abdominal Exam: Soft. absent: Distended, Tenderness Additional comments: surgical site CDI, moderate ecchymosis extending from most lateral port site to the right flank, stable nontender - Extremities Exam Extremities Exam: Normal Inspection. absent: Calf Tenderness - Neurological Exam Neurological Exam: Alert, Awake - Psychiatric Exam Psychiatric exam: Normal Affect, Normal Mood - Skin Skin Exam: Dry, Intact Assessment and Plan - Assessment and Plan (Free Text) Assessment: 78M s/p lap ana maria w/ IOC POD2 w/ anemia Plan: Monitor H/H Transfuse PRN Pain control reg diet OOBTC with assistance Encourage IS use cont [facility] care d[facility] PGY[facility] <Ge Omer - Last Filed: 07/09/18 13:20> Objective - Vital Signs/Intake and Output Vital Signs (last 24 hours): Temp Pulse Resp BP Pulse Ox 98.4 F 106 H 15 121/62 98 07/09/18 11:58 07/09/18 11:58 07/09/18 11:58 07/09/18 11:58 07/09/18 11:58 Intake and Output: 07/09/18 07/09/18 06:59 18:59 Intake Total 376 320 Output Total 250 350 Balance 126 -30 - Medications Medications: Current Medications Enoxaparin Sodium (Lovenox) 30 mg SC DAILY [facility]; Protocol Last Admin: 07/08/18 09:10 Dose: 30 mg Piperacillin Sod/Tazobactam (Sod 3.375 gm/ Sodium Chloride) 100 mls @ 100 mls/hr IVPB Q6 [facility]; Protocol Last Admin: 07/09/18 10:01 Dose: 100 mls/hr Insulin Human Lispro (Humalog) 0 units SC ACHS [facility]; Protocol Last Admin: 07/09/18 11:57 Dose: 1 units Latanoprost (Xalatan Opht) 1 drop OD HS [facility] Last Admin: 07/08/18 21:18 Dose: 1 drop Metoprolol Tartrate (Lopressor) 150 mg PO Q12 [facility] Ondansetron HCl (Zofran Inj) 4 mg IVP Q6 PRN PRN Reason: Nausea/Vomiting Oxycodone/Acetaminophen (Percocet 5/325 Mg Tab) 1 tab PO Q4 PRN PRN Reason: Pain, Mild (1-3) Stop: 07/10/18 14:54 Last Admin: 07/09/18 03:51 Dose: 1 tab Oxycodone/Acetaminophen (Percocet 5/325 Mg Tab) 2 tab PO Q4 PRN PRN Reason: Pain, moderate (4-7) Stop: 07/10/18 14:55 Last Admin: 07/09/18 10:19 Dose: 2 tab Pantoprazole Sodium (Protonix Inj) 40 mg IVP DAILY [facility] Last Admin: 07/09/18 10:00 Dose: 40 mg - Labs Labs: 07/09/18 05:40 07/09/18 05:40 PT 17.2 Seconds (9.8-13.1) H 07/08/18 16:13 INR 1.5 07/08/18 16:13 APTT 35.7 Seconds (25.6-37.1) 07/08/18 16:13 Assessment and Plan - Assessment and Plan (Free Text) Plan: seen at bedside, resting comfortably. pt tolerating, reports incisional tenderness. No reported nausea or vomiting. Pt blood pressure improved. gen: awake, alert, NAD heent: nc/at, eomi no acute respiratory distress abd: soft, distended, minimal discomfort to palpation, incisions c/d/i, right flank ecchymosis s/p laparoscopic cholecystectomy, with drop in hemoglobin post op likely oozing from liver bed -cont diet as tolerated -pain control as needed -monitor HH -hold anticoagulation
--- NOTE | 2018-07-09 14:42 | CP.CCUPN ---
CCU Subjective - Physician Review Subjective (Free Text): Converted to NSR last evening, and reverted back to rapid A fib this AM, remains off IV Cardizem drip. Patient denies any CP, SOB, dizziness, palpitations nor focal weakness. Afebrile, with temps mostly 98-97F last 24H; SBP 120s, HR 100s, 98% on NC. Urine output recorded at 500 ml last 24H. He is in positive fluid balance of 1.9L last 24H. ROS: No other pertinent negs or positives on 10+ system review obtainable. PMSFH: All other Nursing and physician documentation reviewed to date; no new pertinent info noted relevant to current medical problems. EXAM- HEENT: no icterus, no gaze preference, pupils equal and reactive 3 mm size, no nystagmus. NECK: supple, no visible JVD, no adenopathy, thyroid non-palpable. CHEST: decreased BS at the bases, scattered crackles, no wheezes audible bilaterally. HEART: irregular, distant, tachy S1S2, no rubs or murmurs noted ABD: soft, no distention or tympany, no guarding or focal tenderness; BS hypoactive. EXT: no leg edema and thigh edema, no cyanoisis, calf tenderness or palpable cords, distal pulses intact and symmetrical. NEURO: no focal motor deficits. SKIN: no rashes, warm and dry LABS: WBC= 14.1 HGB= 8.5 PLTs= 138 K INR 1.5 yesterday Na= 138 K= 3.7 CL= 110 HCO3= 18 BUN/Cr= 22/2.3 BS= 125 Trop 1.00 yesterday IMPRESSION / MAJOR PROBLEMS NOW: 1. Paroxysmal / Chronic A Fib, with RVR now. 2. CKD III 3. Acute on Chronic disease Anemia 4. Acute / Subacute NSTEMI 5. s/p Lap Kylah PLAN: 1. Rate control being attempted with more beta blockade. 2. Consider more PRBCs. 3. Empiric Zosyn. 4. Repeat serial Trops.
[2018-07-09] MEDS: Latanoprost 0.005% Opht SOUTION OD SCH (21:45)
[2018-07-10] MEDS: Oxycodone/Acetaminophen 5/325 mg Tab PO PRN (00:24)
[2018-07-10] MEDS: Sodium Chloride 0.9% 1,000 ML IV SCH ×2 (01:30→14:56)
[2018-07-10] MEDS: DOPamine 400mg/250ml D5W 400 MG/250 ML BAG IV ONE ×2 (01:34→07:09)
--- NOTE | 2018-07-10 01:42 | PCM.PROC ---
Procedures Attestation:: I certify that I have explained the specified Operation(s) or Procedure(s), risks, benefits and reasonable alternatives to the Patient and/or other person responsible. The opportunity was given to ask questions and all questions answered - Intubation Time Out Performed: Yes Sedative: None Laryngoscope: Phyllis ET Tube Size: 8.0 ET Tube Uncuffed: No ET Tube Secured Locarion: Lips ET Tube Placement Confirmation: Visualized Passing Through Cords, Breath Sounds Equal Bilaterally, No Breath Sounds Over Epigastrum, Confirmation w/Capnometry Patient Tolerated Procedure: No Complications Procedure Immediate Complications: None
[2018-07-10 01:51] LABS: ABG ALLEN TEST YES; ARTERIAL BLOOD GAS HCO3 6.4 mmol/L (21-28); ARTERIAL BLOOD GAS HEMOGLOBIN 6.4 g/dL (11.7-17.4); ARTERIAL BLOOD GAS O2 CAPACITY 10.2 mL/dL (16-24); ARTERIAL BLOOD GAS O2 CONTENT 10.1 ML/dL (15-23); ARTERIAL BLOOD GAS O2 SAT 99.4 % (95-98); ARTERIAL BLOOD GAS PCO2 27 mm/Hg (35-45); ARTERIAL BLOOD GAS PH 6.96 (7.35-7.45); ARTERIAL BLOOD GAS PO2 441 mm/Hg (80-100); ARTERIAL BLOOD GAS TCO2 6.9 mmol/L (22-28)
[2018-07-10] MEDS ORDERED: Chlorhexidine Gluconate 1 APPL/PKT TP ONE (01:54)
[2018-07-10] MEDS ORDERED: Sodium Bicarbonate 7.5% (0.9 MEQ/ML) 50ML INJ IV ONE ×2 (01:56→04:21)
--- NOTE | 2018-07-10 02:01 | CP.PCM.PN ---
Subjective - Date & Time of Evaluation Date of Evaluation: 07/10/18 Time of Evaluation: 02:01 - Subjective Subjective: CODE NOTE Called to evaluate this patient who was unresponsive. On examination the patient was in cardiopulmonary arrest with the hr business partner consultant showing pacemaker spikes. Code Blue was called. Full ACLS protocol was instituted with chest compressions and positive pressure ventilation with bag valve mask. Epinephrine was given every 3 minutes. Return of spontaneous Circulation was obtained after multiple doses of Epinephrine. The patient was placed on a mechanical ventilator. Post intubation Chest X ray was ordered showing the tip of the 8 mm ET tube in the right main bronchus. This was retracted 2 cm. Post intubation ABG showed pH6.99/ 27/ 441/ 64 The vent setting was changed to AC Rate of 12 and Tidal Volume 450 and Oxygen to 60%. Sodium Bicarbonate 150mMoles of Sodium Bicarbonate was given and a Sodium Bicarbonate Drip was started. Dopamine was added because of the falling blood pressure Wilmer Beal MD Objective - Vital Signs/Intake and Output Vital Signs (last 24 hours): Temp Pulse Resp BP Pulse Ox 97.9 F 132 H 15 126/88 100 07/09/18 16:00 07/09/18 18:38 07/09/18 18:00 07/09/18 18:38 07/09/18 18:00 Intake and Output: 07/09/18 07/10/18 18:59 06:59 Intake Total 760 Output Total 550 Balance 210 - Medications Medications: Current Medications Enoxaparin Sodium (Lovenox) 30 mg SC DAILY [facility]; Protocol Last Admin: 07/08/18 09:10 Dose: 30 mg Piperacillin Sod/Tazobactam (Sod 3.375 gm/ Sodium Chloride) 100 mls @ 100 mls/hr IVPB Q6 [facility]; Protocol Last Admin: 07/09/18 21:45 Dose: 100 mls/hr Dopamine HCl/Dextrose (Dopamine 400mg/250ml D5w) 400 mg in 250 mls @ 4.661 mls/hr IV .Q24H [facility]; Protocol Stop: 07/11/18 01:23 Sodium Chloride (Sodium Chloride 0.9%) 1,000 mls @ 999 mls/hr IV .Q1H1M [facility] Stop: 07/11/18 01:49 Sodium Bicarbonate 150 meq/ (Dextrose) 1,150 mls @ 125 mls/hr IV .Q9H12M [facility] Stop: 07/11/18 02:00 Insulin Human Lispro (Humalog) 0 units SC ACHS [facility]; Protocol Last Admin: 07/09/18 21:48 Dose: Not Given Latanoprost (Xalatan Opht) 1 drop OD HS [facility] Last Admin: 07/09/18 21:45 Dose: 1 drop Metoprolol Tartrate (Lopressor) 150 mg PO Q12@0700,1900 [facility] Last Admin: 07/09/18 20:29 Dose: Not Given Ondansetron HCl (Zofran Inj) 4 mg IVP Q6 PRN PRN Reason: Nausea/Vomiting Oxycodone/Acetaminophen (Percocet 5/325 Mg Tab) 1 tab PO Q4 PRN PRN Reason: Pain, Mild (1-3) Stop: 07/10/18 14:54 Last Admin: 07/09/18 03:51 Dose: 1 tab Oxycodone/Acetaminophen (Percocet 5/325 Mg Tab) 2 tab PO Q4 PRN PRN Reason: Pain, moderate (4-7) Stop: 07/10/18 14:55 Last Admin: 07/10/18 00:24 Dose: 2 tab Pantoprazole Sodium (Protonix Inj) 40 mg IVP DAILY [facility] Last Admin: 07/09/18 10:00 Dose: 40 mg Sodium Bicarbonate (Sodium Bicarbonate (8.4%) 50 Meq Syringe) 150 meq IVP ONCE ONE Stop: 07/10/18 01:57 - Labs Labs: 07/09/18 05:40 07/09/18 05:40 PT 17.2 Seconds (9.8-13.1) H 07/08/18 16:13 INR 1.5 07/08/18 16:13 APTT 35.7 Seconds (25.6-37.1) 07/08/18 16:13
[2018-07-10] MEDS ORDERED: Sodium Bicarbonate 8.4% 150 MEQ in Dextrose 5% In Water 1,000 ML IV SCH (02:30)
[2018-07-10 02:43] LABS: MEAN CELL VOLUME 90.9 fl (80.0-94.0); MEAN CORPUSCULAR HEMOGLOBIN 28.4 pg (27.0-31.0); MEAN CORPUSCULAR HGB CONC 31.2 g/dL (33.0-37.0); RBC 1.91 Mil/uL (4.40-5.90); RED CELL DISTRIBUTION WIDTH 17.2 % (11.5-14.5)
[2018-07-10 02:48] LABS: HEMOGLOBIN 5.4 g/dL (12.0-18.0)
[2018-07-10 02:50] LABS: INR 1.7; PROTHROMBIN TIME 19.6 Seconds (9.8-13.1)
[2018-07-10 02:52] LABS: PARTIAL THROMBOPLASTIN TIME 47.8 Seconds (25.6-37.1)
[2018-07-10 03:03] LABS: CALCIUM 6.7 mg/dL (8.4-10.2)
[2018-07-10] MEDS: Piperacillin/Tazobact 3.375 GM in Sodium Chloride 0.9% 100 ML IVPB SCH ×2 (05:27→09:37)
--- NOTE | 2018-07-10 05:36 | PCM.PROC ---
Procedures Attestation:: I certify that I have explained the specified Operation(s) or Procedure(s), risks, benefits and reasonable alternatives to the Patient and/or other person responsible. The opportunity was given to ask questions and all questions answered - Central Line Placement Left Femoral Triple Lumen Catheter Aseptic technique was employed throughout the procedure: Hand Hygiene done prior to procedure, Full sterile barriers (mask, hair cover, sterile gown, sterile gloves), Full body sterile drape, Chloraprep Antiseptic: 2 minute prep for Femoral CVP Time Out Performed: No Pt. Placed on Pulse Ox Monitor: Yes Central Line Prep: Chlorhexidine-Alcohol Combination Ultrasound Used for Placement: Yes Central Line Lumen Inserted: triple Central Line Length: 20 cm Post Procedure: Sutured in Place, Good Blood Return, All Ports Aspirated, Flushed, Capped, Sterile Dressing Applied Secured by: Suture Post procedure dressing: Clear vapor permeable Post Procedure X-Ray: No Patient Tolerated Procedure: Well Immediate Complications: None
[2018-07-10 06:12] LABS: ABG ALLEN TEST YES; ARTERIAL BLOOD GAS HCO3 13.1 mmol/L (21-28); ARTERIAL BLOOD GAS HEMOGLOBIN 9.1 g/dL (11.7-17.4); ARTERIAL BLOOD GAS O2 CAPACITY 12.6 mL/dL (16-24); ARTERIAL BLOOD GAS O2 CONTENT 12.7 ML/dL (15-23); ARTERIAL BLOOD GAS O2 SAT 100.6 % (95-98); ARTERIAL BLOOD GAS PCO2 25 mm/Hg (35-45); ARTERIAL BLOOD GAS PH 7.24 (7.35-7.45); ARTERIAL BLOOD GAS PO2 123 mm/Hg (80-100); ARTERIAL BLOOD GAS TCO2 11.5 mmol/L (22-28)
[2018-07-10] MEDS ORDERED: DOPamine 400mg/250ml D5W 400 MG/250 ML BAG IV ONE (07:09)
[2018-07-10] MEDS: Insulin Lispro (humaLOG) 100 Units/ml Inj SC SCH ×4 (07:12→22:11)
--- NOTE | 2018-07-10 08:17 | CP.PCM.PN ---
<Rhys Wagner - Last Filed: 07/10/18 08:19> Subjective - Date & Time of Evaluation Date of Evaluation: 07/10/18 Time of Evaluation: 08:15 - Subjective Subjective: General Surgery Note for Dr. Berrios Patient seen and examined at bedside. Overnight, patient had cardiac arrest. ACLS was initiated. ROSC was achieved after 3 rounds of epinephrine. Sodium bicarbonate was given and drip was started. Patient was also intubated and started on dopamine. Hgb came back as 5.4 so transfusions were given. TLC was inserted by overnight hospitalist. Patient was found to have melanotic stools. Objective - Vital Signs/Intake and Output Vital Signs (last 24 hours): Temp Pulse Resp BP Pulse Ox 97.9 F 72 20 152/51 H 100 07/10/18 07:51 07/10/18 07:51 07/10/18 07:51 07/10/18 07:51 07/10/18 07:00 Intake and Output: 07/10/18 07/10/18 06:59 18:59 Intake Total 1206 250 Output Total 451 Balance 755 250 - Medications Medications: Current Medications Enoxaparin Sodium (Lovenox) 30 mg SC DAILY [facility]; Protocol Last Admin: 07/08/18 09:10 Dose: 30 mg Piperacillin Sod/Tazobactam (Sod 3.375 gm/ Sodium Chloride) 100 mls @ 100 mls/hr IVPB Q6 [facility]; Protocol Last Admin: 07/10/18 05:27 Dose: 100 mls/hr Dopamine HCl/Dextrose (Dopamine 400mg/250ml D5w) 400 mg in 250 mls @ 4.661 mls/hr IV .Q24H [facility]; Protocol Stop: 07/11/18 01:23 Last Admin: 07/10/18 07:09 Dose: 20 mcg/kg/min, 46.607 mls/hr Sodium Chloride (Sodium Chloride 0.9%) 1,000 mls @ 999 mls/hr IV .Q1H1M [facility] Stop: 07/11/18 01:49 Last Admin: 07/10/18 01:30 Dose: 999 mls/hr Sodium Bicarbonate 150 meq/ (Dextrose) 1,150 mls @ 125 mls/hr IV .Q9H12M [facility] Stop: 07/11/18 02:31 Last Admin: 07/10/18 05:26 Dose: 125 mls/hr Insulin Human Lispro (Humalog) 0 units SC [facility]; Protocol Last Admin: 07/10/18 07:12 Dose: Not Given Latanoprost (Xalatan Opht) 1 drop OD HS [facility] Last Admin: 07/09/18 21:45 Dose: 1 drop Metoprolol Tartrate (Lopressor) 150 mg PO Q12@0700,1900 [facility] Last Admin: 07/10/18 07:11 Dose: Not Given Ondansetron HCl (Zofran Inj) 4 mg IVP Q6 PRN PRN Reason: Nausea/Vomiting Oxycodone/Acetaminophen (Percocet 5/325 Mg Tab) 1 tab PO Q4 PRN PRN Reason: Pain, Mild (1-3) Stop: 07/10/18 14:54 Last Admin: 07/09/18 03:51 Dose: 1 tab Oxycodone/Acetaminophen (Percocet 5/325 Mg Tab) 2 tab PO Q4 PRN PRN Reason: Pain, moderate (4-7) Stop: 07/10/18 14:55 Last Admin: 07/10/18 00:24 Dose: 2 tab Pantoprazole Sodium (Protonix Inj) 40 mg IVP DAILY [facility] Last Admin: 07/09/18 10:00 Dose: 40 mg - Labs Labs: 07/10/18 02:30 07/10/18 02:30 PT 19.6 Seconds (9.8-13.1) H 07/10/18 02:30 INR 1.7 07/10/18 02:30 APTT 47.8 Seconds (25.6-37.1) H 07/10/18 02:30 - Constitutional Appears: Other (intubated) - Head Exam Head Exam: ATRAUMATIC, NORMOCEPHALIC - Eye Exam Eye Exam: Normal appearance - ENT Exam ENT Exam: Mucous Membranes Dry - Respiratory Exam Additional comments: intubated and on PRVC - Cardiovascular Exam Cardiovascular Exam: REGULAR RHYTHM - GI/Abdominal Exam GI & Abdominal Exam: Soft, Normal Bowel Sounds Additional comments: large abdominal wall ecchymosis from midline to right flank surgical sites clean dry and intact - Extremities Exam Extremities Exam: Normal Capillary Refill - Neurological Exam Neurological Exam: Altered Additional comments: [id number] - Psychiatric Exam Psychiatric exam: Flat Affect - Skin Skin Exam: Dry, Warm Assessment and Plan - Assessment and Plan (Free Text) Assessment: 78M who is s/p lap ana maria with IOC POD#3 s/p cardiac arrest now with anemia and acute respiratory failure Plan: Monitor H/H, Transfuse PRN Hold anticoagulation 2 units FFP Wean from vent and pressors as tolerated IV hydration monitor adomen for increase in hematoma Recommend GI consult f/u stool occult blood f/u Cardiology Recommend CT abd/pelvis with IV contrast or CT angio Medical management as per ICU Further recommendations as per Dr. Agustina Wagner PGY2 <Jon Berrios - Last Filed: 07/10/18 12:46> Subjective - Date & Time of Evaluation Time of Evaluation: 10:35 - Subjective Subjective: Patient was seen and examined at the bedside. Agree with resident's note above. Objective - Vital Signs/Intake and Output Vital Signs (last 24 hours): Temp Pulse Resp BP Pulse Ox 98.8 F 72 19 132/51 L 100 07/10/18 12:00 07/10/18 12:00 07/10/18 12:00 07/10/18 12:00 07/10/18 12:00 Intake and Output: 07/10/18 07/10/18 06:59 18:59 Intake Total 1206 515 Output Total 451 10 Balance 755 505 - Medications Medications: Current Medications Enoxaparin Sodium (Lovenox) 30 mg SC DAILY [facility]; Protocol Last Admin: 07/08/18 09:10 Dose: 30 mg Piperacillin Sod/Tazobactam (Sod 3.375 gm/ Sodium Chloride) 100 mls @ 100 mls/hr IVPB Q6 [facility]; Protocol Last Admin: 07/10/18 09:37 Dose: 100 mls/hr Sodium Chloride (Sodium Chloride 0.9%) 1,000 mls @ 999 mls/hr IV .Q1H1M [facility] Stop: 07/11/18 01:49 Last Admin: 07/10/18 01:30 Dose: 999 mls/hr Sodium Bicarbonate 150 meq/ (Dextrose) 1,150 mls @ 125 mls/hr IV .Q9H12M [facility] Stop: 07/11/18 02:31 Last Admin: 07/10/18 05:26 Dose: 125 mls/hr Pantoprazole Sodium 40 mg/ (Sodium Chloride) 100 mls @ 20 mls/hr IVPB Q5H [facility] Last Admin: 07/10/18 10:13 Dose: 20 mls/hr Norepinephrine Bitartrate 4 mg (/ Dextrose) 254 mls @ 9.53 mls/hr IV .Q24H [facility]; Protocol Last Titration: 07/10/18 12:00 Dose: 7.5 mcg/min, 28.58 mls/hr Vancomycin HCl 1 gm/ Sodium (Chloride) 250 mls @ 166.667 mls/hr IVPB STAT [facility]; Protocol Stop: 07/10/18 13:26 Sodium Chloride (Sodium Chloride 0.9%) 500 mls @ 500 mls/hr IV .Q1H [facility] Stop: 07/10/18 13:24 Last Admin: 07/10/18 12:41 Dose: 500 mls/hr Insulin Human Lispro (Humalog) 0 units SC ACHS [facility]; Protocol Last Admin: 07/10/18 11:37 Dose: 2 units Ipratropium [place] (Atrovent) 0.5 mg IH RQ6 [facility] Latanoprost (Xalatan Opht) 1 drop OD HS [facility] Last Admin: 07/09/18 21:45 Dose: 1 drop Metoprolol Tartrate (Lopressor) 150 mg PO Q12@0700,1900 [facility] Last Admin: 07/10/18 07:11 Dose: Not Given Ondansetron HCl (Zofran Inj) 4 mg IVP Q6 PRN PRN Reason: Nausea/Vomiting Oxycodone/Acetaminophen (Percocet 5/325 Mg Tab) 1 tab PO Q4 PRN PRN Reason: Pain, Mild (1-3) Stop: 07/10/18 14:54 Last Admin: 07/09/18 03:51 Dose: 1 tab Oxycodone/Acetaminophen (Percocet 5/325 Mg Tab) 2 tab PO Q4 PRN PRN Reason: Pain, moderate (4-7) Stop: 07/10/18 14:55 Last Admin: 07/10/18 00:24 Dose: 2 tab - Labs Labs: 07/10/18 09:45 07/10/18 09:45 PT 19.6 Seconds (9.8-13.1) H 07/10/18 02:30 INR 1.7 07/10/18 02:30 APTT 47.8 Seconds (25.6-37.1) H 07/10/18 02:30
--- NOTE | 2018-07-10 09:15 | CP.PCM.PN ---
Subjective - Date & Time of Evaluation Date of Evaluation: 07/10/18 Time of Evaluation: 08:40 - Subjective Subjective: Events of last night reviewed. The case was discussed with the procedure writer this morning. The patient apparently complained of abdominal discomfort and subsequently had a cardiorespiratory arrest. \Labs reveal a drop in hemoglobin to 5.4 g and the patient had melanotic stool. The patient is on a ventilator. atmospheric technician shows regular sinus rhythm at 74 bpm. Blood pressure of 150/80 mmHg (ulcers are being weaned off) Patient's extremities were warm and pedal pulses were present. There is scanty urinary output. The patient displays spontaneous inspiratory effort. Does not respond to painful stimuli. Abdomen was mildly distended and intestinal sounds were distant. There were very few rales at both bases. Cardiac auscultation reveals an apical systolic murmur. Chest x-ray was reviewed. Labs show a hemoglobin of 5.4 g and a platelet count of 115K The patient was severely acidotic on initial blood gases with an improvement after adequate ventilation and establishment of spontaneous cardiac rhythm His BUN/creatinine and electrolytes post resuscitation were noted. Strongly suspect a GI bleed which precipitated circulatory collapse and cardiorespiratory arrest. Following 2 units of packed red blood cells CBC would be drawn an additional replacement of blood products as needed would be arranged. In neurological evaluation to assess degree of anoxic encephalopathy would be arranged. Dr. Marshall who has seen the patient for his pulmonary issues will evaluate the patient At this point the patient has spontaneous sinus rhythm and appears to have adequate peripheral perfusion. I have explained patient's clinical status to the patient's family. Objective - Vital Signs/Intake and Output Vital Signs (last 24 hours): Temp Pulse Resp BP Pulse Ox 97.7 F 73 18 152/51 H 100 07/10/18 08:00 07/10/18 08:00 07/10/18 08:00 07/10/18 08:00 07/10/18 08:00 Intake and Output: 07/10/18 07/10/18 06:59 18:59 Intake Total 1206 315 Output Total 451 Balance 755 315 - Medications Medications: Current Medications Enoxaparin Sodium (Lovenox) 30 mg SC DAILY [facility]; Protocol Last Admin: 07/08/18 09:10 Dose: 30 mg Piperacillin Sod/Tazobactam (Sod 3.375 gm/ Sodium Chloride) 100 mls @ 100 mls/hr IVPB Q6 [facility]; Protocol Last Admin: 07/10/18 05:27 Dose: 100 mls/hr Sodium Chloride (Sodium Chloride 0.9%) 1,000 mls @ 999 mls/hr IV .Q1H1M [facility] Stop: 07/11/18 01:49 Last Admin: 07/10/18 01:30 Dose: 999 mls/hr Sodium Bicarbonate 150 meq/ (Dextrose) 1,150 mls @ 125 mls/hr IV .Q9H12M [facility] Stop: 07/11/18 02:31 Last Admin: 07/10/18 05:26 Dose: 125 mls/hr Pantoprazole Sodium 40 mg/ (Sodium Chloride) 100 mls @ 20 mls/hr IVPB Q5H [facility] Insulin Human Lispro (Humalog) 0 units SC ACHS [facility]; Protocol Last Admin: 07/10/18 07:12 Dose: Not Given Latanoprost (Xalatan Opht) 1 drop OD HS [facility] Last Admin: 07/09/18 21:45 Dose: 1 drop Metoprolol Tartrate (Lopressor) 150 mg PO Q12@0700,1900 [facility] Last Admin: 07/10/18 07:11 Dose: Not Given Ondansetron HCl (Zofran Inj) 4 mg IVP Q6 PRN PRN Reason: Nausea/Vomiting Oxycodone/Acetaminophen (Percocet 5/325 Mg Tab) 1 tab PO Q4 PRN PRN Reason: Pain, Mild (1-3) Stop: 07/10/18 14:54 Last Admin: 07/09/18 03:51 Dose: 1 tab Oxycodone/Acetaminophen (Percocet 5/325 Mg Tab) 2 tab PO Q4 PRN PRN Reason: Pain, moderate (4-7) Stop: 07/10/18 14:55 Last Admin: 07/10/18 00:24 Dose: 2 tab - Labs Labs: 07/10/18 02:30 07/10/18 02:30 PT 19.6 Seconds (9.8-13.1) H 07/10/18 02:30 INR 1.7 07/10/18 02:30 APTT 47.8 Seconds (25.6-37.1) H 07/10/18 02:30
--- NOTE | 2018-07-10 09:44 | CARD ---
APPROVED REPORT Date of service: 07/10/2018 EKG Measurement Heart [id number] <Conclusion> Normal sinus rhythm Right bundle branch block ST & T wave abnormality, consider lateral ischemia Abnormal ECG
[2018-07-10] MEDS ORDERED: Sodium Chloride 3% for Inhalation 4 ML VIAL.NEB IH PRN (09:45)
[2018-07-10] MEDS: Pantoprazole 40 MG in Sodium Chloride 0.9% 100 ML IVPB SCH ×3 (10:13→20:14)
[2018-07-10 10:31] LABS: BASO % 0.1 % (0.0-2.0); EOS # 0.1 K/uL (0.0-0.7); EOS % 0.5 % (0.0-4.0); LYMPH # 1.3 K/uL (1.0-4.3); LYMPH % 5.4 % (20.0-40.0); MEAN CELL VOLUME 90.1 fl (80.0-94.0); MEAN CORPUSCULAR HEMOGLOBIN 29.9 pg (27.0-31.0); MEAN CORPUSCULAR HGB CONC 33.2 g/dL (33.0-37.0); MEAN PLATELET VOLUME 7.8 fl (7.2-11.7); MONO # 0.5 K/uL (0.0-0.8); MONO % 2.3 % (0.0-10.0); NEUT # 21.6 K/uL (1.8-7.0); NEUT % 91.7 % (50.0-75.0); NRBC % 2.5 % (0.0-0.0); RBC 3.34 Mil/uL (4.40-5.90); RED CELL DISTRIBUTION WIDTH 15.7 % (11.5-14.5); WHITE BLOOD COUNT 23.6 K/uL (4.8-10.8)
[2018-07-10 10:46] LABS: PLATELET COUNT 90 K/uL (130-400)
--- NOTE | 2018-07-10 11:09 | RAD ---
Date of service: 07/10/2018 HISTORY: intubation COMPARISON: 07/03/2018. FINDINGS: LUNGS: Continued improvement in multifocal airspace disease. PLEURA: No significant pleural effusion identified, no pneumothorax apparent. CARDIOVASCULAR: No atherosclerotic calcification present No radiographic findings to suggest acute or significant cardiovascular disease. Incidental Finding(s): Postoperative changes related to sternotomy. Position/ configuration of pacemaker device: Satisfactory. OSSEOUS STRUCTURES: No significant abnormalities. VISUALIZED UPPER ABDOMEN: Normal. OTHER FINDINGS: Satisfactory position of recently placed endotracheal tube. IMPRESSION: Recently placed endotracheal tube in satisfactory position. The tip is less than 2 cm above the horacio.
[2018-07-10 11:42] LABS: CALCIUM 6.7 mg/dL (8.4-10.2)
[2018-07-10 11:55] LABS: ANISOCYTOSIS SLIGHT; BANDS 18 % (0-2); LYMPHOCYTE 6 % (20-50); MONOCYTE 6 % (0-10); NEUTROPHIL 70 % (42-75); NUCLEATED RED BLOOD CELL 4 % (0-0); PLATELET ESTIMATE DECREASED (NORMAL); TOTAL CELLS COUNTED 100
[2018-07-10 11:57] LABS: POIKILOCYTOSIS SLIGHT; POLYCHROMIC SLIGHT
[2018-07-10 11:58] LABS: BURR CELLS SLIGHT; GIANT PLATELETS PRESENT; LARGE PLATELETS PRESENT; OVALOCYTES SLIGHT; SPHEROCYTES SLIGHT
[2018-07-10] MEDS ORDERED: Sodium Chloride 0.9% 500 ML IV ONE (12:25)
[2018-07-10 13:18] LABS: VENOUS BLOOD GAS BASE EXCESS -3.6 mmol/L (0.0-2.0); VENOUS BLOOD GAS PCO2 33 mmHg (40-60); VENOUS BLOOD GAS PO2 33 mm/Hg (30-55)
--- NOTE | 2018-07-10 13:29 | CP.PCM.CON ---
History of Present Illness - History of Present Illness History of Present Illness: Neurology Consultation Note: Consult requested by Dr. Onofre Mr. Jackson is an 78-year-old man who suffered from cardiac arrest, possible UT last night and was coded for about 20 minutes, 7 rounds of epi, now on pressors, received several units of blood and FFP after his hemoglobin dropped s/p laproscopic cholecystectomy. Currently, the patient is intubated, off sedation, not responsive to painful stimulus. Neurology was consulted for evaluation of anoxic brain injury. Review of Systems - Review of Systems Systems not reviewed;Unavailable: Intubated Past Patient History - Past Medical History & Family History Past Medical History?: Yes - Past Social History Smoking Status: Former Smoker - CARDIAC Hx Atrial Fibrillation: Yes Hx Cardia Arrhythmia: Yes (tachy/nasim) Hx Congestive Heart Failure: Yes Hx Hypercholesterolemia: Yes Hx Hypertension: Yes Hx Pacemaker: Yes - PULMONARY Hx Bronchitis: Yes Hx Chronic Obstructive Pulmonary Disease (COPD): Yes Hx Pneumonia: Yes () - NEUROLOGICAL Hx Transient Ischemic Attacks (TIA): No - HEENT Hx HEENT Problems: Yes Hx Glaucoma: Yes - RENAL Hx Chronic Kidney Disease: Yes - ENDOCRINE/METABOLIC Hx Endocrine Disorders: Yes Hx Diabetes Mellitus Type 2: Yes - HEMATOLOGICAL/ONCOLOGICAL Hx Anemia: No Hx Human Immunodeficiency Virus (HIV): No - INTEGUMENTARY Hx Dermatological Problems: No - MUSCULOSKELETAL/RHEUMATOLOGICAL Hx Arthritis: Yes Hx Fractures: No Hx Osteoporosis: Yes - GASTROINTESTINAL Hx Gastrointestinal Disorders: No - GENITOURINARY/GYNECOLOGICAL Hx Genitourinary Disorders: No - PSYCHIATRIC Hx Psychophysiologic Disorder: No Hx Substance Use: No - SURGICAL HISTORY Hx Coronary Artery Bypass Graft: Yes (1999) - ANESTHESIA Hx Anesthesia: Yes Hx Anesthesia Reactions: No Hx Malignant Hyperthermia: No Meds Allergies/Adverse Reactions: Allergies Allergy/AdvReac Type Severity Reaction Status Date / Time azithromycin Allergy ITCHING Verified 07/04/18 01:07 moxifloxacin [From Avelox] Allergy ITCHING Verified 07/04/18 01:07 - Medications Medications: Current Medications Enoxaparin Sodium (Lovenox) 30 mg SC DAILY [facility]; Protocol Last Admin: 07/08/18 09:10 Dose: 30 mg Piperacillin Sod/Tazobactam (Sod 3.375 gm/ Sodium Chloride) 100 mls @ 100 mls/hr IVPB Q6 [facility]; Protocol Last Admin: 07/10/18 09:37 Dose: 100 mls/hr Sodium Chloride (Sodium Chloride 0.9%) 1,000 mls @ 999 mls/hr IV .Q1H1M [facility] Stop: 07/11/18 01:49 Last Admin: 07/10/18 01:30 Dose: 999 mls/hr Sodium Bicarbonate 150 meq/ (Dextrose) 1,150 mls @ 125 mls/hr IV .Q9H12M [facility] Stop: 07/11/18 02:31 Last Admin: 07/10/18 05:26 Dose: 125 mls/hr Pantoprazole Sodium 40 mg/ (Sodium Chloride) 100 mls @ 20 mls/hr IVPB Q5H [facility] Last Admin: 07/10/18 10:13 Dose: 20 mls/hr Norepinephrine Bitartrate 4 mg (/ Dextrose) 254 mls @ 9.53 mls/hr IV .Q24H [facility]; Protocol Last Titration: 07/10/18 12:00 Dose: 7.5 mcg/min, 28.58 mls/hr Vancomycin HCl 1 gm/ Sodium (Chloride) 250 mls @ 166.667 mls/hr IVPB STAT [facility]; Protocol Stop: 07/10/18 13:26 Last Admin: 07/10/18 12:46 Dose: 166.667 mls/hr Sodium Chloride (Sodium Chloride 0.9%) 500 mls @ 500 mls/hr IV .Q1H [facility] Stop: 07/10/18 13:24 Last Admin: 07/10/18 12:41 Dose: 500 mls/hr Calcium Gluconate 1,000 mg/ (Sodium Chloride) 110 mls @ 200 mls/hr IVPB ONCE ONE Stop: 07/10/18 13:22 Insulin Human Lispro (Humalog) 0 units SC ACHS [facility]; Protocol Last Admin: 07/10/18 11:37 Dose: 2 units Ipratropium [place] (Atrovent) 0.5 mg IH RQ6 [facility] Latanoprost (Xalatan Opht) 1 drop OD HS [facility] Last Admin: 07/09/18 21:45 Dose: 1 drop Metoprolol Tartrate (Lopressor) 150 mg PO Q12@0700,1900 [facility] Last Admin: 07/10/18 07:11 Dose: Not Given Ondansetron HCl (Zofran Inj) 4 mg IVP Q6 PRN PRN Reason: Nausea/Vomiting Oxycodone/Acetaminophen (Percocet 5/325 Mg Tab) 1 tab PO Q4 PRN PRN Reason: Pain, Mild (1-3) Stop: 07/10/18 14:54 Last Admin: 07/09/18 03:51 Dose: 1 tab Oxycodone/Acetaminophen (Percocet 5/325 Mg Tab) 2 tab PO Q4 PRN PRN Reason: Pain, moderate (4-7) Stop: 07/10/18 14:55 Last Admin: 07/10/18 00:24 Dose: 2 tab Physical Exam - Constitutional Appears: Cachectic, Chronically Ill - Head Exam Head Exam: ATRAUMATIC, NORMAL INSPECTION, NORMOCEPHALIC - Eye Exam Additional comments: bilateral extensive cataracts - ENT Exam ENT Exam: Mucous Membranes Moist, Normal Exam - Neck Exam Neck exam: Positive for: Normal Inspection - Respiratory Exam Respiratory Exam: Decreased Breath Sounds - Cardiovascular Exam Cardiovascular Exam: REGULAR RHYTHM, +S1, +S2 - GI/Abdominal Exam GI & Abdominal Exam: Normal Bowel Sounds, Soft. absent: Tenderness - Neurological Exam Additional comments: Pupils are sluggishly reactive. No movement noted. Does not open eyes. Bilateral lower extremity Babinski present. Occasional clonus of legs. Results - Vital Signs Recent Vital Signs: Last Vital Signs Temp 98.8 F 07/10/18 12:00 Pulse 72 07/10/18 12:00 Resp 19 07/10/18 12:00 BP 132/51 L 07/10/18 12:00 Pulse Ox 100 07/10/18 12:00 - Labs Result Diagrams: 07/10/18 09:45 07/10/18 09:45 Labs: Laboratory Results - last 24 hr 07/08/18 07/09/18 07/09/18 06:25 05:29 11:02 WBC RBC Hgb Hct MCV MCH MCHC RDW Plt Count MPV Neut % (Auto) Lymph % (Auto) Parmer % (Auto) Eos % (Auto) Baso % (Auto) Neut # (Auto) Lymph # (Auto) Parmer # (Auto) Eos # (Auto) Baso # (Auto) Neutrophils % (Manual) Band Neutrophils % Lymphocytes % (Manual) Monocytes % (Manual) Nucleated RBC % Platelet Estimate Large Platelets Giant Platelets Polychromasia Poikilocytosis (manual Anisocytosis (manual) Spherocytes Ovalocytes Sindi Cells PT INR APTT pCO2 pO2 HCO3 ABG pH ABG Total CO2 ABG O2 Saturation ABG O2 Content ABG Base Excess ABG Hemoglobin ABG Carboxyhemoglobin POC ABG HHb (Measured) ABG Methemoglobin ABG O2 Capacity Van Test A-a O2 Difference Hgb O2 Saturation Vent Mode Mechanical Rate FiO2 Tidal Volume PEEP Crit Value Called To Crit Value Called By Crit Value Read Back Blood Gas Notified Time Sodium Potassium Chloride Carbon Dioxide Anion Gap BUN Creatinine Est GFR ( Amer) Est GFR (Non-Af Amer) POC Glucose (mg/dL) 119 H 155 H Random Glucose Lactic Acid Calcium Troponin I Blood Type B POSITIVE Antibody Screen Negative Crossmatch See Detail BBK History Checked Patient has bt 07/09/18 07/09/18 07/10/18 16:34 21:18 00:52 WBC RBC Hgb Hct MCV MCH MCHC RDW Plt Count MPV Neut % (Auto) Lymph % (Auto) Parmer % (Auto) Eos % (Auto) Baso % (Auto) Neut # (Auto) Lymph # (Auto) Parmer # (Auto) Eos # (Auto) Baso # (Auto) Neutrophils % (Manual) Band Neutrophils % Lymphocytes % (Manual) Monocytes % (Manual) Nucleated RBC % Platelet Estimate Large Platelets Giant Platelets Polychromasia Poikilocytosis (manual Anisocytosis (manual) Spherocytes Ovalocytes Stanton Cells PT INR APTT pCO2 pO2 HCO3 ABG pH ABG Total CO2 ABG O2 Saturation ABG O2 Content ABG Base Excess ABG Hemoglobin ABG Carboxyhemoglobin POC ABG HHb (Measured) ABG Methemoglobin ABG O2 Capacity Van Test A-a O2 Difference Hgb O2 Saturation Vent Mode Mechanical Rate FiO2 Tidal Volume PEEP Crit Value Called To Crit Value Called By Crit Value Read Back Blood Gas Notified Time Sodium Potassium Chloride Carbon Dioxide Anion Gap BUN Creatinine Est GFR ( Amer) Est GFR (Non-Af Amer) POC Glucose (mg/dL) 105 103 153 H Random Glucose Lactic Acid Calcium Troponin I Blood Type Antibody Screen Crossmatch BBK History Checked 07/10/18 07/10/18 07/10/18 01:45 01:47 02:30 WBC 17.0 H RBC 1.91 L Hgb 5.4 L* D Hct 17.4 L MCV 90.9 D MCH 28.4 MCHC 31.2 L RDW 17.2 H Plt Count 115 L D MPV Neut % (Auto) Lymph % (Auto) Parmer % (Auto) Eos % (Auto) Baso % (Auto) Neut # (Auto) Lymph # (Auto) Parmer # (Auto) Eos # (Auto) Baso # (Auto) Neutrophils % (Manual) Band Neutrophils % Lymphocytes % (Manual) Monocytes % (Manual) Nucleated RBC % Platelet Estimate Large Platelets Giant Platelets Polychromasia Poikilocytosis (manual Anisocytosis (manual) Spherocytes Ovalocytes Stanton Cells PT Cancelled INR Cancelled APTT Cancelled pCO2 27 L pO2 441 H HCO3 6.4 L* ABG pH 6.96 L* ABG Total CO2 6.9 L ABG O2 Saturation 99.4 H ABG O2 Content 10.1 L ABG Base Excess -23.8 L ABG Hemoglobin 6.4 L ABG Carboxyhemoglobin 0.5 POC ABG HHb (Measured) 0.6 ABG Methemoglobin 1.4 ABG O2 Capacity 10.2 L Van Test Yes A-a O2 Difference 238.0 Hgb O2 Saturation 97.5 Vent Mode A/c Mechanical Rate 18 FiO2 100.0 Tidal Volume 450 PEEP 5 Crit Value Called To Emigdio carmona md Crit Value Called By 333 Crit Value Read Back Y Blood Gas Notified Time 150 Sodium Potassium Chloride Carbon Dioxide Anion Gap BUN Creatinine Est GFR ( Amer) Est GFR (Non-Af Amer) POC Glucose (mg/dL) Random Glucose Lactic Acid Calcium Troponin I Blood Type Antibody Screen Crossmatch BBK History Checked 07/10/18 07/10/18 07/10/18 02:30 02:30 06:10 WBC RBC Hgb Hct MCV MCH MCHC RDW Plt Count MPV Neut % (Auto) Lymph % (Auto) Parmer % (Auto) Eos % (Auto) Baso % (Auto) Neut # (Auto) Lymph # (Auto) Parmer # (Auto) Eos # (Auto) Baso # (Auto) Neutrophils % (Manual) Band Neutrophils % Lymphocytes % (Manual) Monocytes % (Manual) Nucleated RBC % Platelet Estimate Large Platelets Giant Platelets Polychromasia Poikilocytosis (manual Anisocytosis (manual) Spherocytes Ovalocytes Sindi Cells PT 19.6 H INR 1.7 APTT 47.8 H pCO2 25 L pO2 123 H HCO3 13.1 L ABG pH 7.24 L ABG Total CO2 11.5 L ABG O2 Saturation 100.6 H ABG O2 Content 12.7 L ABG Base Excess -15.2 L ABG Hemoglobin 9.1 L ABG Carboxyhemoglobin 1.7 H POC ABG HHb (Measured) -0.6 L ABG Methemoglobin 1.3 ABG O2 Capacity 12.6 L Van Test Yes A-a O2 Difference 274.0 Hgb O2 Saturation 97.6 Vent Mode A/c Mechanical Rate 12 FiO2 60.0 Tidal Volume 450 PEEP Crit Value Called To Crit Value Called By Crit Value Read Back Blood Gas Notified Time Sodium 140 Potassium 4.6 Chloride 108 H Carbon Dioxide 17 L Anion Gap 20 BUN 21 H Creatinine 2.2 H Est GFR ( Amer) 35 Est GFR (Non-Af Amer) 29 POC Glucose (mg/dL) Random Glucose 130 H Lactic Acid Calcium 6.7 L Troponin I Blood Type Antibody Screen Crossmatch BBK History Checked 07/10/18 07/10/18 07/10/18 06:43 09:45 09:45 WBC 23.6 H RBC 3.34 L Hgb 10.0 L D Hct 30.1 L MCV 90.1 MCH 29.9 MCHC 33.2 RDW 15.7 H Plt Count 90 L D MPV 7.8 Neut % (Auto) 91.7 H Lymph % (Auto) 5.4 L Parmer % (Auto) 2.3 Eos % (Auto) 0.5 Baso % (Auto) 0.1 Neut # (Auto) 21.6 H Lymph # (Auto) 1.3 Parmer # (Auto) 0.5 Eos # (Auto) 0.1 Baso # (Auto) 0.0 Neutrophils % (Manual) 70 Band Neutrophils % 18 H* Lymphocytes % (Manual) 6 L Monocytes % (Manual) 6 Nucleated RBC % 4 H Platelet Estimate Decreased L Large Platelets Present Giant Platelets Present Polychromasia Slight Poikilocytosis (manual Slight Anisocytosis (manual) Slight Spherocytes Slight Ovalocytes Slight Stanton Cells Slight PT INR APTT pCO2 pO2 HCO3 ABG pH ABG Total CO2 ABG O2 Saturation ABG O2 Content ABG Base Excess ABG Hemoglobin ABG Carboxyhemoglobin POC ABG HHb (Measured) ABG Methemoglobin ABG O2 Capacity Van Test A-a O2 Difference Hgb O2 Saturation Vent Mode Mechanical Rate FiO2 Tidal Volume PEEP Crit Value Called To Crit Value Called By Crit Value Read Back Blood Gas Notified Time Sodium 139 Potassium 4.1 Chloride 105 Carbon Dioxide 17 L Anion Gap 21 H BUN 26 H Creatinine 2.6 H Est GFR ( Amer) 29 Est GFR (Non-Af Amer) 24 POC Glucose (mg/dL) 141 H Random Glucose 196 H Lactic Acid Calcium 6.7 L Troponin I Blood Type Antibody Screen Crossmatch BBK History Checked 07/10/18 07/10/18 09:45 10:45 WBC RBC Hgb Hct MCV MCH MCHC RDW Plt Count MPV Neut % (Auto) Lymph % (Auto) Parmer % (Auto) Eos % (Auto) Baso % (Auto) Neut # (Auto) Lymph # (Auto) Parmer # (Auto) Eos # (Auto) Baso # (Auto) Neutrophils % (Manual) Band Neutrophils % Lymphocytes % (Manual) Monocytes % (Manual) Nucleated RBC % Platelet Estimate Large Platelets Giant Platelets Polychromasia Poikilocytosis (manual Anisocytosis (manual) Spherocytes Ovalocytes Stanton Cells PT INR APTT pCO2 pO2 HCO3 ABG pH ABG Total CO2 ABG O2 Saturation ABG O2 Content ABG Base Excess ABG Hemoglobin ABG Carboxyhemoglobin POC ABG HHb (Measured) ABG Methemoglobin ABG O2 Capacity Van Test A-a O2 Difference Hgb O2 Saturation Vent Mode Mechanical Rate FiO2 Tidal Volume PEEP Crit Value Called To Crit Value Called By Crit Value Read Back Blood Gas Notified Time Sodium Potassium Chloride Carbon Dioxide Anion Gap BUN Creatinine Est GFR ( Amer) Est GFR (Non-Af Amer) POC Glucose (mg/dL) Random Glucose Lactic Acid 7.6 H* Calcium Troponin I 1.4400 H* Blood Type Antibody Screen Crossmatch BBK History Checked Assessment & Plan - Assessment and Plan (Free Text) Assessment: Anoxic brain injury due to prolonged asystole and hypoperfusion. The patient currently does not have cortical activity and has bilateral babinski. Ischemia to the brain is likely. Subclinical status epilepticus is also possible. Plan: Obtain non-contrast CT scan of the head and EEG for further evaluation. Continue conservative management. Prognosis is poor. Thank you for this consultation.
[2018-07-10] MEDS: Ipratropium 0.02% Inhal Soln (0.5 mg/2.5 ml) UD IH SCH ×2 (13:36→19:16)
[2018-07-10] MEDS: Meropenem 500 MG in Sodium Chloride 0.9% 100 ML IVPB SCH (14:00)
--- NOTE | 2018-07-10 14:31 | CP.PCM.CON ---
History of Present Illness - History of Present Illness History of Present Illness: This 86-year-old male is known to me from the outpatient setting where he was treated for an episode of pneumonia in March of this year. Subsequent to treatment for the pneumonia he was admitted to hospital for permanent pacemaker implant and had done well subsequently. Recently he had been admitted to the hospital because of abdominal pain and underwent laparoscopic cholecystectomy on 07/07/18. Overnight last night he was found to be unresponsive and resuscitated because of cardiopulmonary arrest. He was orally intubated and placed on mechanical ventilation. A chest x-ray done this morning shows the ET tube in good position and expansion of both lungs equally. There is an area of suspected infiltrate in the right upper lobe, but no pneumothorax or pleural effusions identified. His past medical history includes myocardial infarction in 1999, pneumonia in 2014, pyelonephritis in 2016, type 2 diabetes mellitus, hypertension, chronic atrial fibrillation with bradycardia arrhythmia, chronic obstructive pulmonary disease and hyperlipidemia. He also underwent Coronary Artery Bypass Grafting in 1999 and a ureteral stent in 2016. Review of Systems - Review of Systems Systems not reviewed;Unavailable: Altered Mental Status, Intubated Past Patient History - Past Medical History & Family History Past Medical History?: Yes - Past Social History Smoking Status: Smoker Currrent Status Unknown Chewing Tobacco Use: No Cigar Use: No Alcohol: None Drugs: Denies Home Situation {Lives}: With Family - CARDIAC Hx Atrial Fibrillation: Yes Hx Cardia Arrhythmia: Yes (tachy/nasim) Hx Congestive Heart Failure: Yes Hx Heart Attack: Yes Hx Hypercholesterolemia: Yes Hx Hypertension: Yes Hx Pacemaker: Yes - PULMONARY Hx Bronchitis: Yes Hx Chronic Obstructive Pulmonary Disease (COPD): Yes Hx Pneumonia: Yes () - NEUROLOGICAL Hx Neurological Disorder: No Hx Transient Ischemic Attacks (TIA): No - HEENT Hx Glaucoma: Yes - RENAL Hx Chronic Kidney Disease: Yes - ENDOCRINE/METABOLIC Hx Diabetes Mellitus Type 2: Yes - HEMATOLOGICAL/ONCOLOGICAL Hx Anemia: No Hx Human Immunodeficiency Virus (HIV): No - INTEGUMENTARY Hx Dermatological Problems: No - MUSCULOSKELETAL/RHEUMATOLOGICAL Hx Arthritis: Yes Hx Fractures: No Hx Osteoporosis: Yes - GASTROINTESTINAL Hx Gastrointestinal Disorders: No - GENITOURINARY/GYNECOLOGICAL Hx Genitourinary Disorders: No - PSYCHIATRIC Hx Psychophysiologic Disorder: No Hx Substance Use: No - SURGICAL HISTORY Hx Cholecystectomy: Yes (current admission) Hx Coronary Artery Bypass Graft: Yes (1999) - ANESTHESIA Hx Anesthesia: Yes Hx Anesthesia Reactions: No Hx Malignant Hyperthermia: No Meds Allergies/Adverse Reactions: Allergies Allergy/AdvReac Type Severity Reaction Status Date / Time azithromycin Allergy ITCHING Verified 07/04/18 01:07 moxifloxacin [From Avelox] Allergy ITCHING Verified 07/04/18 01:07 - Medications Medications: Current Medications Enoxaparin Sodium (Lovenox) 30 mg SC DAILY ANTONY; Protocol Last Admin: 07/08/18 09:10 Dose: 30 mg Sodium Chloride (Sodium Chloride 0.9%) 1,000 mls @ 999 mls/hr IV .Q1H1M ANTONY Stop: 07/11/18 01:49 Last Admin: 07/10/18 01:30 Dose: 999 mls/hr Sodium Bicarbonate 150 meq/ (Dextrose) 1,150 mls @ 125 mls/hr IV .Q9H12M ANTONY Stop: 07/11/18 02:31 Last Admin: 07/10/18 05:26 Dose: 125 mls/hr Pantoprazole Sodium 40 mg/ (Sodium Chloride) 100 mls @ 20 mls/hr IVPB Q5H ANTONY Last Admin: 07/10/18 14:27 Dose: 20 mls/hr Norepinephrine Bitartrate 4 mg (/ Dextrose) 254 mls @ 9.53 mls/hr IV .Q24H ANTONY; Protocol Last Titration: 07/10/18 12:00 Dose: 7.5 mcg/min, 28.58 mls/hr Piperacillin Sod/Tazobactam (Sod 2.25 gm/ Sodium Chloride) 100 mls @ 100 mls/hr IVPB Q12 ANTONY; Protocol Meropenem 500 mg/ Sodium (Chloride) 100 mls @ 100 mls/hr IVPB Q12H ANTONY; Protocol Insulin Human Lispro (Humalog) 0 units SC ACHS ANTONY; Protocol Last Admin: 07/10/18 11:37 Dose: 2 units Ipratropium [place] (Atrovent) 0.5 mg IH RQ6 ANTONY Last Admin: 07/10/18 13:36 Dose: 0.5 mg Latanoprost (Xalatan Opht) 1 drop OD HS ANTONY Last Admin: 07/09/18 21:45 Dose: 1 drop Metoprolol Tartrate (Lopressor) 150 mg PO Q12@0700,1900 ANTONY Last Admin: 07/10/18 07:11 Dose: Not Given Ondansetron HCl (Zofran Inj) 4 mg IVP Q6 PRN PRN Reason: Nausea/Vomiting Oxycodone/Acetaminophen (Percocet 5/325 Mg Tab) 1 tab PO Q4 PRN PRN Reason: Pain, Mild (1-3) Stop: 07/10/18 14:54 Last Admin: 07/09/18 03:51 Dose: 1 tab Oxycodone/Acetaminophen (Percocet 5/325 Mg Tab) 2 tab PO Q4 PRN PRN Reason: Pain, moderate (4-7) Stop: 07/10/18 14:55 Last Admin: 07/10/18 00:24 Dose: 2 tab Physical Exam - Additional Findings Additional findings: Unresponsive, orally intubated and mechanically ventilated. Conjunctival pallor without scleral icterus. Neck is supple and trachea is midline. No neck vein distention. No dullness on percussion of the anterior thorax. No subcutaneous emphysema. Healed sternotomy scar is noted. Permanent pacemaker is located in the inf raclavicular region. Breath sounds are somewhat diminished bilaterally but are otherwise clear anter iorly. Posteriorly there are a few scattered rhonchi and occasional medium rales. Heart sounds are distant. The rhythm is regular. There is a large area of ecchymosis extending over a significant portion of the abdominal wall salo-laterally on the right. No dependent edema of lower extremities. No cyanosis. Extremities are warm to touch. Results - Vital Signs Recent Vital Signs: Last Vital Signs Temp 99.1 F 07/10/18 14:00 Pulse 72 07/10/18 14:00 Resp 20 07/10/18 14:00 BP 153/60 H 07/10/18 14:00 Pulse Ox 100 07/10/18 14:00 - Labs Result Diagrams: 07/10/18 09:45 07/10/18 09:45 Labs: Laboratory Results - last 24 hr 07/08/18 07/09/18 07/09/18 06:25 05:29 11:02 WBC RBC Hgb Hct MCV MCH MCHC RDW Plt Count MPV Neut % (Auto) Lymph % (Auto) [place] % (Auto) Eos % (Auto) Baso % (Auto) Neut # (Auto) Lymph # (Auto) [place] # (Auto) Eos # (Auto) Baso # (Auto) Neutrophils % (Manual) Band Neutrophils % Lymphocytes % (Manual) Monocytes % (Manual) Nucleated RBC % Platelet Estimate Large Platelets Giant Platelets Polychromasia Poikilocytosis (manual Anisocytosis (manual) Spherocytes Ovalocytes Sindi Cells PT INR APTT pCO2 pO2 HCO3 ABG pH ABG Total CO2 ABG O2 Saturation ABG O2 Content ABG Base Excess ABG Hemoglobin ABG Carboxyhemoglobin POC ABG HHb (Measured) ABG Methemoglobin ABG O2 Capacity Van Test VBG pH VBG pCO2 VBG HCO3 VBG Total CO2 VBG O2 Sat (Calc) VBG Base Excess VBG Potassium A-a O2 Difference Hgb O2 Saturation Glucose Lactate Vent Mode Mechanical Rate FiO2 Tidal Volume PEEP Crit Value Called To Crit Value Called By Crit Value Read Back Blood Gas Notified Time Sodium Potassium Chloride Carbon Dioxide Anion Gap BUN Creatinine Est GFR ( Amer) Est GFR (Non-Af Amer) POC Glucose (mg/dL) 119 H 155 H Random Glucose Lactic Acid Calcium Troponin I Venous Blood Potassium Blood Type B POSITIVE Antibody Screen Negative Crossmatch See Detail BBK History Checked Patient has bt 07/09/18 07/09/18 07/10/18 16:34 21:18 00:52 WBC RBC Hgb Hct MCV MCH MCHC RDW Plt Count MPV Neut % (Auto) Lymph % (Auto) [place] % (Auto) Eos % (Auto) Baso % (Auto) Neut # (Auto) Lymph # (Auto) [place] # (Auto) Eos # (Auto) Baso # (Auto) Neutrophils % (Manual) Band Neutrophils % Lymphocytes % (Manual) Monocytes % (Manual) Nucleated RBC % Platelet Estimate Large Platelets Giant Platelets Polychromasia Poikilocytosis (manual Anisocytosis (manual) Spherocytes Ovalocytes Sindi Cells PT INR APTT pCO2 pO2 HCO3 ABG pH ABG Total CO2 ABG O2 Saturation ABG O2 Content ABG Base Excess ABG Hemoglobin ABG Carboxyhemoglobin POC ABG HHb (Measured) ABG Methemoglobin ABG O2 Capacity Van Test VBG pH VBG pCO2 VBG HCO3 VBG Total CO2 VBG O2 Sat (Calc) VBG Base Excess VBG Potassium A-a O2 Difference Hgb O2 Saturation Glucose Lactate Vent Mode Mechanical Rate FiO2 Tidal Volume PEEP Crit Value Called To Crit Value Called By Crit Value Read Back Blood Gas Notified Time Sodium Potassium Chloride Carbon Dioxide Anion Gap BUN Creatinine Est GFR ( Amer) Est GFR (Non-Af Amer) POC Glucose (mg/dL) 105 103 153 H Random Glucose Lactic Acid Calcium Troponin I Venous Blood Potassium Blood Type Antibody Screen Crossmatch BBK History Checked 07/10/18 07/10/18 07/10/18 01:45 01:47 02:30 WBC 17.0 H RBC 1.91 L Hgb 5.4 L* D Hct 17.4 L MCV 90.9 D MCH 28.4 MCHC 31.2 L RDW 17.2 H Plt Count 115 L D MPV Neut % (Auto) Lymph % (Auto) [place] % (Auto) Eos % (Auto) Baso % (Auto) Neut # (Auto) Lymph # (Auto) [place] # (Auto) Eos # (Auto) Baso # (Auto) Neutrophils % (Manual) Band Neutrophils % Lymphocytes % (Manual) Monocytes % (Manual) Nucleated RBC % Platelet Estimate Large Platelets Giant Platelets Polychromasia Poikilocytosis (manual Anisocytosis (manual) Spherocytes Ovalocytes Hall Cells PT Cancelled INR Cancelled APTT Cancelled pCO2 27 L pO2 441 H HCO3 6.4 L* ABG pH 6.96 L* ABG Total CO2 6.9 L ABG O2 Saturation 99.4 H ABG O2 Content 10.1 L ABG Base Excess -23.8 L ABG Hemoglobin 6.4 L ABG Carboxyhemoglobin 0.5 POC ABG HHb (Measured) 0.6 ABG Methemoglobin 1.4 ABG O2 Capacity 10.2 L Van Test Yes VBG pH VBG pCO2 VBG HCO3 VBG Total CO2 VBG O2 Sat (Calc) VBG Base Excess VBG Potassium A-a O2 Difference 238.0 Hgb O2 Saturation 97.5 Glucose Lactate Vent Mode A/c Mechanical Rate 18 FiO2 100.0 Tidal Volume 450 PEEP 5 Crit Value Called To Emigdio carmona md Crit Value Called By 333 Crit Value Read Back Y Blood Gas Notified Time 150 Sodium Potassium Chloride Carbon Dioxide Anion Gap BUN Creatinine Est GFR ( Amer) Est GFR (Non-Af Amer) POC Glucose (mg/dL) Random Glucose Lactic Acid Calcium Troponin I Venous Blood Potassium Blood Type Antibody Screen Crossmatch BBK History Checked 07/10/18 07/10/18 07/10/18 02:30 02:30 06:10 WBC RBC Hgb Hct MCV MCH MCHC RDW Plt Count MPV Neut % (Auto) Lymph % (Auto) [place] % (Auto) Eos % (Auto) Baso % (Auto) Neut # (Auto) Lymph # (Auto) [place] # (Auto) Eos # (Auto) Baso # (Auto) Neutrophils % (Manual) Band Neutrophils % Lymphocytes % (Manual) Monocytes % (Manual) Nucleated RBC % Platelet Estimate Large Platelets Giant Platelets Polychromasia Poikilocytosis (manual Anisocytosis (manual) Spherocytes Ovalocytes Sindi Cells PT 19.6 H INR 1.7 APTT 47.8 H pCO2 25 L pO2 123 H HCO3 13.1 L ABG pH 7.24 L ABG Total CO2 11.5 L ABG O2 Saturation 100.6 H ABG O2 Content 12.7 L ABG Base Excess -15.2 L ABG Hemoglobin 9.1 L ABG Carboxyhemoglobin 1.7 H POC ABG HHb (Measured) -0.6 L ABG Methemoglobin 1.3 ABG O2 Capacity 12.6 L Van Test Yes VBG pH VBG pCO2 VBG HCO3 VBG Total CO2 VBG O2 Sat (Calc) VBG Base Excess VBG Potassium A-a O2 Difference 274.0 Hgb O2 Saturation 97.6 Glucose Lactate Vent Mode A/c Mechanical Rate 12 FiO2 60.0 Tidal Volume 450 PEEP Crit Value Called To Crit Value Called By Crit Value Read Back Blood Gas Notified Time Sodium 140 Potassium 4.6 Chloride 108 H Carbon Dioxide 17 L Anion Gap 20 BUN 21 H Creatinine 2.2 H Est GFR ( Amer) 35 Est GFR (Non-Af Amer) 29 POC Glucose (mg/dL) Random Glucose 130 H Lactic Acid Calcium 6.7 L Troponin I Venous Blood Potassium Blood Type Antibody Screen Crossmatch BBK History Checked 07/10/18 07/10/18 07/10/18 06:43 09:45 09:45 WBC 23.6 H RBC 3.34 L Hgb 10.0 L D Hct 30.1 L MCV 90.1 MCH 29.9 MCHC 33.2 RDW 15.7 H Plt Count 90 L D MPV 7.8 Neut % (Auto) 91.7 H Lymph % (Auto) 5.4 L [place] % (Auto) 2.3 Eos % (Auto) 0.5 Baso % (Auto) 0.1 Neut # (Auto) 21.6 H Lymph # (Auto) 1.3 [place] # (Auto) 0.5 Eos # (Auto) 0.1 Baso # (Auto) 0.0 Neutrophils % (Manual) 70 Band Neutrophils % 18 H* Lymphocytes % (Manual) 6 L Monocytes % (Manual) 6 Nucleated RBC % 4 H Platelet Estimate Decreased L Large Platelets Present Giant Platelets Present Polychromasia Slight Poikilocytosis (manual Slight Anisocytosis (manual) Slight Spherocytes Slight Ovalocytes Slight Hall Cells Slight PT INR APTT pCO2 pO2 HCO3 ABG pH ABG Total CO2 ABG O2 Saturation ABG O2 Content ABG Base Excess ABG Hemoglobin ABG Carboxyhemoglobin POC ABG HHb (Measured) ABG Methemoglobin ABG O2 Capacity Van Test VBG pH VBG pCO2 VBG HCO3 VBG Total CO2 VBG O2 Sat (Calc) VBG Base Excess VBG Potassium A-a O2 Difference Hgb O2 Saturation Glucose Lactate Vent Mode Mechanical Rate FiO2 Tidal Volume PEEP Crit Value Called To Crit Value Called By Crit Value Read Back Blood Gas Notified Time Sodium 139 Potassium 4.1 Chloride 105 Carbon Dioxide 17 L Anion Gap 21 H BUN 26 H Creatinine 2.6 H Est GFR ( Amer) 29 Est GFR (Non-Af Amer) 24 POC Glucose (mg/dL) 141 H Random Glucose 196 H Lactic Acid Calcium 6.7 L Troponin I Venous Blood Potassium Blood Type Antibody Screen Crossmatch BBK History Checked 07/10/18 07/10/18 07/10/18 09:45 10:45 13:05 WBC RBC Hgb Hct MCV MCH MCHC RDW Plt Count MPV Neut % (Auto) Lymph % (Auto) [place] % (Auto) Eos % (Auto) Baso % (Auto) Neut # (Auto) Lymph # (Auto) [place] # (Auto) Eos # (Auto) Baso # (Auto) Neutrophils % (Manual) Band Neutrophils % Lymphocytes % (Manual) Monocytes % (Manual) Nucleated RBC % Platelet Estimate Large Platelets Giant Platelets Polychromasia Poikilocytosis (manual Anisocytosis (manual) Spherocytes Ovalocytes Sindi Cells PT INR APTT pCO2 pO2 33 HCO3 ABG pH ABG Total CO2 ABG O2 Saturation ABG O2 Content ABG Base Excess ABG Hemoglobin ABG Carboxyhemoglobin POC ABG HHb (Measured) ABG Methemoglobin ABG O2 Capacity Van Test VBG pH 7.40 VBG pCO2 33 L VBG HCO3 21.2 VBG Total CO2 21.4 L VBG O2 Sat (Calc) 73.7 H VBG Base Excess -3.6 L VBG Potassium 3.3 L A-a O2 Difference Hgb O2 Saturation Glucose 232 H Lactate 5.7 H* Vent Mode Mechanical Rate FiO2 50.0 Tidal Volume PEEP Crit Value Called To Irma dawn Crit Value Called By 23 Crit Value Read Back Y Blood Gas Notified Time 1315 Sodium 140.0 Potassium Chloride 107.0 Carbon Dioxide Anion Gap BUN Creatinine Est GFR ( Amer) Est GFR (Non-Af Amer) POC Glucose (mg/dL) Random Glucose Lactic Acid 7.6 H* Calcium Troponin I 1.4400 H* Venous Blood Potassium 3.3 L Blood Type Antibody Screen Crossmatch BBK History Checked Assessment & Plan (1) HCAP (healthcare-associated pneumonia) Status: Acute Priority: High (2) Acute blood loss anemia Status: Acute Priority: High (3) COPD (chronic obstructive pulmonary disease) Status: Chronic Priority: High (4) Respiratory failure Status: Acute Priority: High (5) On mechanically assisted ventilation Status: Acute Priority: High (6) Altered mental status Status: Acute Priority: High - Assessment and Plan (Free Text) Assessment: Status post cardiac arrest and resuscitation, presently orally intubated and mechanically ventilated, well oxygenated. Presently we'll continue treatment for healthcare associated pneumonia and request infectious disease consultation. No significant weaning from mechanical ventilation will be attempted at this time. Request for sputum culture as well as cytology. Case discussed with the medical educator and the site auditor. - Date & Time Date: 07/10/18 Time: 14:29
[2018-07-10] MEDS ORDERED: Sodium Chloride 0.9% 1,000 ML IV SCH (15:30)
[2018-07-10 15:46] LABS: SQUAMOUS EPITHIAL 3 /hpf (0-5); URINE BACTERIA OCC (<OCC); URINE BILIRUBIN NEGATIVE (NEGATIVE); URINE BLOOD LARGE (NEGATIVE); URINE CLARITY TURBID (Clear); URINE GLUCOSE (UA) 50 mg/dL (NEGATIVE); URINE LEUKOCYTE ESTERASE LARGE Leu/uL (Negative); URINE PROTEIN >=500 mg/dL (NEGATIVE); URINE UROBILINOGEN 0.2-1.0 mg/dL (0.2-1.0)
[2018-07-10 15:53] LABS: URINE COLOR YELLOW (YELLOW)
--- NOTE | 2018-07-10 15:54 | CP.CCUPN ---
CCU Subjective - Physician Review Subjective (Free Text): Events over last night reviewed, resuscitated from nasim-asystole, on Dopamine, now on Levophed and alkalinized fluids. Comatose to deep pain stimuli, does not exhibit any gag, carinal, pupillary reflexes. Triggering vent at 24/min on AC 12. He remains in sinus tachy rhythm. Afebrile, with temps mostly 98-97F last 24H; SBP 120s, HR 100s, 9. Urine output is oliguric. He is in positive fluid balance of 0.745L last 24H. ROS: No other pertinent negs or positives on 10+ system review obtainable. PMSFH: All other Nursing and physician documentation reviewed to date; no new pertinent info noted relevant to current medical problems. EXAM- HEENT: no icterus, no gaze preference, pupils un equal and non-reactive 3 mm size, no nystagmus. NECK: supple, no visible JVD, no adenopathy, thyroid non-palpable. CHEST: decreased BS at the bases, scattered crackles, no wheezes audible bilaterally. HEART: irregular, distant, tachy S1S2, no rubs or murmurs noted ABD: soft, no distention or tympany, no guarding or focal tenderness; BS hypoactive. Large area of ecchymoses over R lateral abdomen EXT: no leg edema and thigh edema, no cyanoses, calf tenderness or palpable cords, distal pulses intact and symmetrical. L eft femoral V TLC. NEURO: flaccid x 4 extremities, no withdrawal on plantar testing, no tone. SKIN: no rashes, warm and dry LABS: WBC= 17.0 to 23.6 with 18% bands HGB= 5.4 to 10.0 PLTs= 115K to 90K INR 1.7 with PTT = 47.8 6.96/27/441 post code, repeated 5 hours later = 7.24/25/123 Na= 140 to 139 K= 4.6 to 4.1 CL= 108 to 105 HCO3= 17 to 17 BUN/Cr= 21/2.2 to 26/2.6 BS= 141 Lacate = 7.6, repeated 3 hours later = 5.7 Trop 1.00 yesterday , now 1.44 IMPRESSION / MAJOR PROBLEMS NOW: 1. Nasim-Asystole to cardiac arrest 2. Acute Hypoxemic Resp Failure 2 #1 3. r/o Acute / NSTEMI 4. APURVA with ATN with CKD III 5. Chronic paroxysmal A fib, s/p RVR with Cardiomyopathy 6. Acute on Chronic Disease Anemia 7. s/p Lap Kylah PLAN: 1. Events reviewed overnight regarding Code Blue and resuscitation. Code Blue duration was almost 18-20 minutes of resuscitation time. Troponin this am was 1.44, EKG showed sinus rhythm 74/min, with RBBB and inverted Ts in anteroseptal leads. Presently remains in deep coma with no response to deep pain stimulus. Corneal reflexes are absent, pupils are fixed, R pupil not well visualized, Left pupil is 3 mm and NR, no Dolls eyes present, absent gag and carinal reflexes, though family stated they had observed carinal reflexes earlier an hour ago. He is triggering the vent at 24/ min on AC 12, SPO2 100% on 50% oxygen. PMD has requested formal Neurology eval. Consider CT brain. 2 Units PRBCs have been completed and FFP near-completion. No clinically evident s/sx of bleeding noted, stools are hemoccult+. Large abdominal wall hematoma noted on the Right side. Repeat Hgb post PRBCs = 10.0, Lactate level = 7.6 at 945AM. Dopamine has been stopped 3 hours earlier. He is hypotensive at approx. 1100AM and stated on Levophed in the interim. Repeat lactate and central VBG ordered. May consider Dobutamine therapy. Repeat CBC also showed new and progressive leukocytosis at 23.6K WBC with 18% bands. Vanco pulse dose added to Zosyn after blood cultures, urine cultures and UA obtained. Unexpected lactate level unclear if due to severe sepsis, versus primary cardiac event with hypoperfusion. Discussed with daughter and son at the bedside, and aware of present clinical status given present life support measures, albeit under a comatose and anoxic encephalopathy state post-resuscitation. No known Advance Directives noted, full support measures remain. Time spent with this patient did not overlap with any other provider's medical or critical care time. Additionally the code selected for the services rendered in this note includes the time spent: talking to the patients family, associated physicians and reviewing hospital data/results not listed here which extended to a total of 50 minutes of critical care.
--- NOTE | 2018-07-10 16:24 | CP.CCUPN ---
<Patrick Abel - Last Filed: 07/10/18 16:24> CCU Subjective - Physician Review Subjective (Free Text): Overnight events noted. S/P Cardiac Arrest. Intubated on MV. Pt seen and examined this morning. Pt is unresponsive to pain, pupils pin point at 3mm w/ minimal reflex, no gag or cough reflex noted. GCS 3 Family at bedside, explained plan and addressed questions. Critical Care Time Spent (in minutes): 55 CCU Objective - Vital Signs / Intake & Output Vital Signs (Last 4 hours): Vital Signs Temp Pulse Resp BP Pulse Ox 07/10/18 07:51 97.9 F 72 20 152/51 H 07/10/18 07:00 73 18 152/51 H 100 07/10/18 06:33 97.9 F 70 20 126/50 L 07/10/18 06:15 97.9 F 69 19 109/50 L 07/10/18 06:13 97.9 F 69 19 109/50 L 07/10/18 06:00 69 19 109/50 L 100 07/10/18 05:00 70 19 92/34 L 100 Intake and Output (Last 8hrs): Intake & Output 07/09/18 07/10/18 07/10/18 22:59 06:59 14:59 Intake Total 542 1104 315 Output Total 200 451 Balance 342 653 315 Weight 137 lb Intake: IV 2 1004 315 Intake, Piggyback 300 100 Oral 240 Blood Product 0 0 Red Blood Cells Cpd As1 0 Lr Unit [id number] Red Blood Cells Cpd As1 0 0 Lr Unit [id number] Output: Urine 200 450 Urethral (Villa) 200 450 Stool 1 - Physical Exam Physical Exam Limitations: Positive for: Altered Mental Status Head: Positive for: Atraumatic Pupils: Positive for: PERRL (minimally ), Sluggish Extroacular Muscles: Negative for: EOMI, Gaze Palsy Mouth: Positive for: Moist Mucous Membranes Respiratory/Chest: Positive for: Clear to Auscultation. Negative for: Respiratory Distress Abdomen: Positive for: Distention, Normal Bowel Sounds, Other (Right sided ecchymosis extending to both upper and lower quadrants, tense. Unable to assess pain. ) Upper Extremity: Negative for: Edema Lower Extremity: Negative for: Edema Neurological: Positive for: Other (Pupils 3mm pin point, minimally reactive, no gaze pref) Skin: Positive for: Normal Color Psychiatric: Negative for: Alert (GCS3), Oriented x 3 - Medications Active Medications: Active Medications Generic Name Dose Route Start Last Admin Trade Name Freq PRN Reason Stop Dose Admin Enoxaparin Sodium 30 mg 07/05/18 09:00 07/08/18 09:10 Lovenox SC 30 mg DAILY ANTONY Administration Protocol Piperacillin Sod/Tazobactam 100 mls @ 100 mls/hr 07/04/18 10:00 07/10/18 05:27 Sod 3.375 gm/ Sodium Chloride IVPB 100 mls/hr Q6 ANTONY Administration Protocol Dopamine HCl/Dextrose 400 mg in 250 mls @ 4.661 mls/hr 07/10/18 01:24 07/10/18 08:29 Dopamine 400mg/250ml D5w IV 07/11/18 01:23 18 mcg/kg/min .Q24H ONE 41.946 mls/hr Titration Protocol 2 MCG/KG/MIN Sodium Chloride 1,000 mls @ 999 mls/hr 07/10/18 02:00 07/10/18 01:30 Sodium Chloride 0.9% IV 07/11/18 01:49 999 mls/hr .Q1H1M ANTONY Administration Sodium Bicarbonate 150 meq/ 1,150 mls @ 125 mls/hr 07/10/18 02:30 07/10/18 05:26 Dextrose IV 07/11/18 02:31 125 mls/hr .Q9H12M ANTONY Administration Insulin Human Lispro 0 units 07/09/18 07:30 07/10/18 07:12 Humalog SC Not Given ACHS ANTONY Protocol Latanoprost 1 drop 07/04/18 22:00 07/09/18 21:45 Xalatan Opht OD 1 drop HS ANTONY Administration Metoprolol Tartrate 150 mg 07/09/18 21:00 07/10/18 07:11 Lopressor PO Not Given Q12@0700,1900 ANTONY Ondansetron HCl 4 mg 07/04/18 08:08 Zofran Inj IVP Q6 PRN Nausea/Vomiting Oxycodone/Acetaminophen 1 tab 07/07/18 14:53 07/09/18 03:51 Percocet 5/325 Mg Tab PO 07/10/18 14:54 1 tab Q4 PRN Administration Pain, Mild (1-3) Oxycodone/Acetaminophen 2 tab 07/07/18 14:54 07/10/18 00:24 Percocet 5/325 Mg Tab PO 07/10/18 14:55 2 tab Q4 PRN Administration Pain, moderate (4-7) Pantoprazole Sodium 40 mg 07/05/18 12:00 07/10/18 08:33 Protonix Inj IVP 40 mg DAILY ANTONY Administration - Patient Studies Lab Studies: Microbiology Studies 07/08/18 18:09 MRSA Culture (Admit) - Final Naris MRSA NOT DETECTED Lab Studies 07/10/18 07/10/18 07/10/18 Range/Units 06:43 06:10 02:30 WBC (4.8-10.8) K/uL RBC (4.40-5.90) Mil/uL Hgb (12.0-18.0) g/dL Hct (35.0-51.0) % MCV (80.0-94.0) fl MCH (27.0-31.0) pg MCHC (33.0-37.0) g/dL RDW (11.5-14.5) % Plt Count (130-400) K/uL PT 19.6 H INR 1.7 APTT 47.8 H pCO2 25 L (35-45) mm/Hg pO2 123 H (80-100) mm/Hg HCO3 13.1 L (21-28) mmol/L ABG pH 7.24 L (7.35-7.45) ABG Total CO2 11.5 L (22-28) mmol/L ABG O2 Saturation 100.6 H (95-98) % ABG O2 Content 12.7 L (15-23) ML/dL ABG Base Excess -15.2 L (-2.0-3.0) mmol/L ABG Hemoglobin 9.1 L (11.7-17.4) g/dL ABG Carboxyhemoglobin 1.7 H (0.5-1.5) % POC ABG HHb (Measured) -0.6 L (0.0-5.0) % ABG Methemoglobin 1.3 (0.0-3.0) % ABG O2 Capacity 12.6 L (16-24) mL/dL Van Test Yes A-a O2 Difference 274.0 mm/Hg Hgb O2 Saturation 97.6 (95.0-98.0) % Vent Mode A/c Mechanical Rate 12 FiO2 60.0 % Tidal Volume 450 PEEP Crit Value Called To Crit Value Called By Crit Value Read Back Blood Gas Notified Time Sodium (132-148) mmol/l Potassium (3.6-5.0) MMOL/L Chloride (98-107) mmol/L Carbon Dioxide (22-30) mmol/L Anion Gap (10-20) BUN (9-20) mg/dl Creatinine (0.8-1.5) mg/dl Est GFR ( Amer) Est GFR (Non-Af Amer) POC Glucose (mg/dL) 141 H (65-110) mg/dL Random Glucose (75-110) mg/dL Calcium (8.4-10.2) mg/dL Blood Type Antibody Screen Crossmatch BBK History Checked 07/10/18 07/10/18 07/10/18 Range/Units 02:30 02:30 01:47 WBC 17.0 H (4.8-10.8) K/uL RBC 1.91 L (4.40-5.90) Mil/uL Hgb 5.4 L* D (12.0-18.0) g/dL Hct 17.4 L (35.0-51.0) % MCV 90.9 D (80.0-94.0) fl MCH 28.4 (27.0-31.0) pg MCHC 31.2 L (33.0-37.0) g/dL RDW 17.2 H (11.5-14.5) % Plt Count 115 L D (130-400) K/uL PT INR APTT pCO2 27 L (35-45) mm/Hg pO2 441 H (80-100) mm/Hg HCO3 6.4 L* (21-28) mmol/L ABG pH 6.96 L* (7.35-7.45) ABG Total CO2 6.9 L (22-28) mmol/L ABG O2 Saturation 99.4 H (95-98) % ABG O2 Content 10.1 L (15-23) ML/dL ABG Base Excess -23.8 L (-2.0-3.0) mmol/L ABG Hemoglobin 6.4 L (11.7-17.4) g/dL ABG Carboxyhemoglobin 0.5 (0.5-1.5) % POC ABG HHb (Measured) 0.6 (0.0-5.0) % ABG Methemoglobin 1.4 (0.0-3.0) % ABG O2 Capacity 10.2 L (16-24) mL/dL Van Test Yes A-a O2 Difference 238.0 mm/Hg Hgb O2 Saturation 97.5 (95.0-98.0) % Vent Mode A/c Mechanical Rate 18 FiO2 100.0 % Tidal Volume 450 PEEP 5 Crit Value Called To Emigdio carmona md Crit Value Called By 333 Crit Value Read Back Y Blood Gas Notified Time 150 Sodium 140 (132-148) mmol/l Potassium 4.6 (3.6-5.0) MMOL/L Chloride 108 H (98-107) mmol/L Carbon Dioxide 17 L (22-30) mmol/L Anion Gap 20 (10-20) BUN 21 H (9-20) mg/dl Creatinine 2.2 H (0.8-1.5) mg/dl Est GFR ( Amer) 35 Est GFR (Non-Af Amer) 29 POC Glucose (mg/dL) (65-110) mg/dL Random Glucose 130 H (75-110) mg/dL Calcium 6.7 L (8.4-10.2) mg/dL Blood Type Antibody Screen Crossmatch BBK History Checked 07/10/18 07/10/18 07/09/18 Range/Units 01:45 00:52 21:18 WBC (4.8-10.8) K/uL RBC (4.40-5.90) Mil/uL Hgb (12.0-18.0) g/dL Hct (35.0-51.0) % MCV (80.0-94.0) fl MCH (27.0-31.0) pg MCHC (33.0-37.0) g/dL RDW (11.5-14.5) % Plt Count (130-400) K/uL PT Cancelled INR Cancelled APTT Cancelled pCO2 (35-45) mm/Hg pO2 (80-100) mm/Hg HCO3 (21-28) mmol/L ABG pH (7.35-7.45) ABG Total CO2 (22-28) mmol/L ABG O2 Saturation (95-98) % ABG O2 Content (15-23) ML/dL ABG Base Excess (-2.0-3.0) mmol/L ABG Hemoglobin (11.7-17.4) g/dL ABG Carboxyhemoglobin (0.5-1.5) % POC ABG HHb (Measured) (0.0-5.0) % ABG Methemoglobin (0.0-3.0) % ABG O2 Capacity (16-24) mL/dL Van Test A-a O2 Difference mm/Hg Hgb O2 Saturation (95.0-98.0) % Vent Mode Mechanical Rate FiO2 % Tidal Volume PEEP Crit Value Called To Crit Value Called By Crit Value Read Back Blood Gas Notified Time Sodium (132-148) mmol/l Potassium (3.6-5.0) MMOL/L Chloride (98-107) mmol/L Carbon Dioxide (22-30) mmol/L Anion Gap (10-20) BUN (9-20) mg/dl Creatinine (0.8-1.5) mg/dl Est GFR ( Amer) Est GFR (Non-Af Amer) POC Glucose (mg/dL) 153 H 103 (65-110) mg/dL Random Glucose (75-110) mg/dL Calcium (8.4-10.2) mg/dL Blood Type Antibody Screen Crossmatch BBK History Checked 07/09/18 07/09/18 07/09/18 Range/Units 16:34 11:02 05:29 WBC (4.8-10.8) K/uL RBC (4.40-5.90) Mil/uL Hgb (12.0-18.0) g/dL Hct (35.0-51.0) % MCV (80.0-94.0) fl MCH (27.0-31.0) pg MCHC (33.0-37.0) g/dL RDW (11.5-14.5) % Plt Count (130-400) K/uL PT INR APTT pCO2 (35-45) mm/Hg pO2 (80-100) mm/Hg HCO3 (21-28) mmol/L ABG pH (7.35-7.45) ABG Total CO2 (22-28) mmol/L ABG O2 Saturation (95-98) % ABG O2 Content (15-23) ML/dL ABG Base Excess (-2.0-3.0) mmol/L ABG Hemoglobin (11.7-17.4) g/dL ABG Carboxyhemoglobin (0.5-1.5) % POC ABG HHb (Measured) (0.0-5.0) % ABG Methemoglobin (0.0-3.0) % ABG O2 Capacity (16-24) mL/dL Van Test A-a O2 Difference mm/Hg Hgb O2 Saturation (95.0-98.0) % Vent Mode Mechanical Rate FiO2 % Tidal Volume PEEP Crit Value Called To Crit Value Called By Crit Value Read Back Blood Gas Notified Time Sodium (132-148) mmol/l Potassium (3.6-5.0) MMOL/L Chloride (98-107) mmol/L Carbon Dioxide (22-30) mmol/L Anion Gap (10-20) BUN (9-20) mg/dl Creatinine (0.8-1.5) mg/dl Est GFR ( Amer) Est GFR (Non-Af Amer) POC Glucose (mg/dL) 105 155 H 119 H (65-110) mg/dL Random Glucose (75-110) mg/dL Calcium (8.4-10.2) mg/dL Blood Type Antibody Screen Crossmatch BBK History Checked 07/08/18 Range/Units 06:25 WBC (4.8-10.8) K/uL RBC (4.40-5.90) Mil/uL Hgb (12.0-18.0) g/dL Hct (35.0-51.0) % MCV (80.0-94.0) fl MCH (27.0-31.0) pg MCHC (33.0-37.0) g/dL RDW (11.5-14.5) % Plt Count (130-400) K/uL PT INR APTT pCO2 (35-45) mm/Hg pO2 (80-100) mm/Hg HCO3 (21-28) mmol/L ABG pH (7.35-7.45) ABG Total CO2 (22-28) mmol/L ABG O2 Saturation (95-98) % ABG O2 Content (15-23) ML/dL ABG Base Excess (-2.0-3.0) mmol/L ABG Hemoglobin (11.7-17.4) g/dL ABG Carboxyhemoglobin (0.5-1.5) % POC ABG HHb (Measured) (0.0-5.0) % ABG Methemoglobin (0.0-3.0) % ABG O2 Capacity (16-24) mL/dL Van Test A-a O2 Difference mm/Hg Hgb O2 Saturation (95.0-98.0) % Vent Mode Mechanical Rate FiO2 % Tidal Volume PEEP Crit Value Called To Crit Value Called By Crit Value Read Back Blood Gas Notified Time Sodium (132-148) mmol/l Potassium (3.6-5.0) MMOL/L Chloride (98-107) mmol/L Carbon Dioxide (22-30) mmol/L Anion Gap (10-20) BUN (9-20) mg/dl Creatinine (0.8-1.5) mg/dl Est GFR ( Amer) Est GFR (Non-Af Amer) POC Glucose (mg/dL) (65-110) mg/dL Random Glucose (75-110) mg/dL Calcium (8.4-10.2) mg/dL Blood Type B POSITIVE Antibody Screen Negative Crossmatch See Detail BBK History Checked Patient has bt Laboratory Results - last 24 hr 07/08/18 07/09/18 07/09/18 06:25 05:29 11:02 WBC RBC Hgb Hct MCV MCH MCHC RDW Plt Count PT INR APTT pCO2 pO2 HCO3 ABG pH ABG Total CO2 ABG O2 Saturation ABG O2 Content ABG Base Excess ABG Hemoglobin ABG Carboxyhemoglobin POC ABG HHb (Measured) ABG Methemoglobin ABG O2 Capacity Van Test A-a O2 Difference Hgb O2 Saturation Vent Mode Mechanical Rate FiO2 Tidal Volume PEEP Crit Value Called To Crit Value Called By Crit Value Read Back Blood Gas Notified Time Sodium Potassium Chloride Carbon Dioxide Anion Gap BUN Creatinine Est GFR ( Amer) Est GFR (Non-Af Amer) POC Glucose (mg/dL) 119 H 155 H Random Glucose Calcium Blood Type B POSITIVE Antibody Screen Negative Crossmatch See Detail BBK History Checked Patient has bt 07/09/18 07/09/18 07/10/18 16:34 21:18 00:52 WBC RBC Hgb Hct MCV MCH MCHC RDW Plt Count PT INR APTT pCO2 pO2 HCO3 ABG pH ABG Total CO2 ABG O2 Saturation ABG O2 Content ABG Base Excess ABG Hemoglobin ABG Carboxyhemoglobin POC ABG HHb (Measured) ABG Methemoglobin ABG O2 Capacity Van Test A-a O2 Difference Hgb O2 Saturation Vent Mode Mechanical Rate FiO2 Tidal Volume PEEP Crit Value Called To Crit Value Called By Crit Value Read Back Blood Gas Notified Time Sodium Potassium Chloride Carbon Dioxide Anion Gap BUN Creatinine Est GFR ( Amer) Est GFR (Non-Af Amer) POC Glucose (mg/dL) 105 103 153 H Random Glucose Calcium Blood Type Antibody Screen Crossmatch BBK History Checked 07/10/18 07/10/18 07/10/18 01:45 01:47 02:30 WBC 17.0 H RBC 1.91 L Hgb 5.4 L* D Hct 17.4 L MCV 90.9 D MCH 28.4 MCHC 31.2 L RDW 17.2 H Plt Count 115 L D PT Cancelled INR Cancelled APTT Cancelled pCO2 27 L pO2 441 H HCO3 6.4 L* ABG pH 6.96 L* ABG Total CO2 6.9 L ABG O2 Saturation 99.4 H ABG O2 Content 10.1 L ABG Base Excess -23.8 L ABG Hemoglobin 6.4 L ABG Carboxyhemoglobin 0.5 POC ABG HHb (Measured) 0.6 ABG Methemoglobin 1.4 ABG O2 Capacity 10.2 L Van Test Yes A-a O2 Difference 238.0 Hgb O2 Saturation 97.5 Vent Mode A/c Mechanical Rate 18 FiO2 100.0 Tidal Volume 450 PEEP 5 Crit Value Called To Emigdio carmona md Crit Value Called By 333 Crit Value Read Back Y Blood Gas Notified Time 150 Sodium Potassium Chloride Carbon Dioxide Anion Gap BUN Creatinine Est GFR ( Amer) Est GFR (Non-Af Amer) POC Glucose (mg/dL) Random Glucose Calcium Blood Type Antibody Screen Crossmatch BBK History Checked 07/10/18 07/10/18 07/10/18 02:30 02:30 06:10 WBC RBC Hgb Hct MCV MCH MCHC RDW Plt Count PT 19.6 H INR 1.7 APTT 47.8 H pCO2 25 L pO2 123 H HCO3 13.1 L ABG pH 7.24 L ABG Total CO2 11.5 L ABG O2 Saturation 100.6 H ABG O2 Content 12.7 L ABG Base Excess -15.2 L ABG Hemoglobin 9.1 L ABG Carboxyhemoglobin 1.7 H POC ABG HHb (Measured) -0.6 L ABG Methemoglobin 1.3 ABG O2 Capacity 12.6 L Van Test Yes A-a O2 Difference 274.0 Hgb O2 Saturation 97.6 Vent Mode A/c Mechanical Rate 12 FiO2 60.0 Tidal Volume 450 PEEP Crit Value Called To Crit Value Called By Crit Value Read Back Blood Gas Notified Time Sodium 140 Potassium 4.6 Chloride 108 H Carbon Dioxide 17 L Anion Gap 20 BUN 21 H Creatinine 2.2 H Est GFR ( Amer) 35 Est GFR (Non-Af Amer) 29 POC Glucose (mg/dL) Random Glucose 130 H Calcium 6.7 L Blood Type Antibody Screen Crossmatch BBK History Checked 07/10/18 06:43 WBC RBC Hgb Hct MCV MCH MCHC RDW Plt Count PT INR APTT pCO2 pO2 HCO3 ABG pH ABG Total CO2 ABG O2 Saturation ABG O2 Content ABG Base Excess ABG Hemoglobin ABG Carboxyhemoglobin POC ABG HHb (Measured) ABG Methemoglobin ABG O2 Capacity Van Test A-a O2 Difference Hgb O2 Saturation Vent Mode Mechanical Rate FiO2 Tidal Volume PEEP Crit Value Called To Crit Value Called By Crit Value Read Back Blood Gas Notified Time Sodium Potassium Chloride Carbon Dioxide Anion Gap BUN Creatinine Est GFR ( Amer) Est GFR (Non-Af Amer) POC Glucose (mg/dL) 141 H Random Glucose Calcium Blood Type Antibody Screen Crossmatch BBK History Checked Fingerstick Blood Sugar Results: 141 Critical Care Progress Note - Nutrition Nutrition: Nutrition Category Date Time Status Consistent Carbohydrate [DIET] Diets 07/09/18 Dinner Active Assessment/Plan - Assessment and Plan (Free Text) Assessment: Pt is an 78 y/o male with hx of recent Lap [place] POD#3, hx of CAD (s/p CABG), CHF w/ reduced EF (25-30%), HTN, DM, CDK stage III, and COPD admitted to ICU s/p cardiac arrest. Overnight, pt was noted to be in acute distress, complaining of abdominal pain for which he received analgesics and Haldol. Shortly after, pt was noted to be unresponsive w/o pulse. ACLS protocol was initiated, pt received epix3, and ROSC was achieved. Pt now comatose and remains intubated. Pt was noted to have hemoglobin of 5 w/ witnessed Melena and received 2 units PRBC transfusion. Pt was hypotensive overnight despite adequate resuscitation and started on Dopamine ggt. #Neuro - GCS 3 - No sedatives - PE exam findings strongly suggestive of anoxic brain injury - Neurology consulted, Dr. Morgan - Head CT and EEG pending #Cardiac - Hypotensive w/ shock state, Lactic acid 7.6 - Dopamine overnight, weaned off this morning but started Levophed as BP destabi lized in afternoon - Shock may be secondary to hypovolemic (acute blood loss) vs septic - Cardiogenic shock less likely as SVO2>70% - Troponin 1.44. EKG no new ischemic findings. Discussed with Dr. Onofre. May be as a result of CPR - C/w levophed ggt; maintain MAP >65 - Hx of Afibb on Xarelto (held in light of possible GI bleed); Lopressor held due to hypotension #Pulm - Intubated on MV FIO2 50% - ABG c/w severe metabolic acidosis w/ compensatory respiratory alkalosis w/o hypoxia #Renal - Hx of CKD Stage III - Crea 2.2 >2.6 - APURVA, likely prerenal in setting of shock - Metabolic acidosis on Bicarb ggt, will repeat VBG - Monitor I/O. Low urine output this am. Will initiate fluid challenge. Villa in place, continue to monitor. - Avoid nephrotoxic agents - C/W IV fluids #GI - S/P Lap choley - Tbili 1.5, mild transminitis - On exam-- Moderately sized ecchymosis along surgical site raises suspicion of internal bleed from recent operation, though unable to confirm chronicity. Cannot confirm with CT Angio due to renal function - Protonix ggt for possible GI bleed (in light of hg drop and witness melena). F/U stool guiac - Surgery following Heme/ID - Hg dropped from 8.5 to 5.4. Repeat Hg this am was 10 (hg 5 lab error?) - S/P transfusion of 2 units PRBC - Platelets 90 - Coagulaopathy: INR 1.7 s/p 2 units FFP - Afebrile, worsening leukocytosis 23.6 w/ bandemia 18 suggesting active infection - Bcx, Ucx, UA sent today - Stat dose of Vanco given - C/W Zosyn - ID consulted, Merrem started Case discussed with Dr. Smith who agrees with plan Patrick Abel PGY2 <Rodolfo Smith - Last Filed: 07/10/18 16:42> Assessment/Plan - Assessment and Plan (Free Text) Plan: Attestation: Patient seen and examined at the bedside with Resident Dr. Kim Abel; and I agree with her outline of plans and management documented above as discussed on AM rounds; reflecting my review of all applicable clinical data, and participation in the care of the patient throughout the day in ICU; today, July 10, 2018. Events reviewed overnight regarding Code Blue and resuscitation. Code Blue duration was almost 18-20 minutes of resuscitation time. Troponin this am was 1.44, EKG showed sinus rhythm 74/min, with RBBB and inverted Ts in anteroseptal leads. Presently remains in deep coma with no response to deep pain stimulus. Corneal reflexes are absent, pupils are fixed, R pupil not well visualized, Left pupil is 3 mm and NR, no Dolls eyes present, absent gag and carinal reflexes, though family stated they had observed carinal reflexes earlier an hour ago. He is triggering the vent at 24/ min on AC 12, SPO2 100% on 50% oxygen. PMD has requested formal Neurology eval. Consider CT brain. 2 Units PRBCs have been completed and FFP near-completion. No clinically evident s/sx of bleeding noted, stools are hemoccult+. Large abdominal wall hematoma noted on the Right side. Repeat Hgb post PRBCs = 10.0, Lactate level = 7.6 at 945AM. Dopamine has been stopped 3 hours earlier. He is hypotensive at approx. 1100AM and stated on Levophed in the interim. Repeat lactate and central VBG ordered. May consider Dobutamine therapy. Repeat CBC also showed new and progressive leukocytosis at 23.6 with 18% bands. Vanco pulse dose added to Zosyn after blood cultures, urine cultures and UA obtained. Unexpected lactate level unclear if due to severe sepsis, versus primary cardiac event with hypoper fusion. Discussed with daughter and son at the bedside, and aware of present clinical status given present life support measures, albeit under a comatose and anoxic encephalopathy state post-resuscitation. No known Advance Directives noted, full support measures remain.
[2018-07-10 17:36] LABS: HEMOGLOBIN 8.3 g/dL (12.0-18.0); MEAN CELL VOLUME 89.6 fl (80.0-94.0); MEAN CORPUSCULAR HEMOGLOBIN 29.7 pg (27.0-31.0); MEAN CORPUSCULAR HGB CONC 33.1 g/dL (33.0-37.0); RBC 2.8 Mil/uL (4.40-5.90); RED CELL DISTRIBUTION WIDTH 15.9 % (11.5-14.5); WHITE BLOOD COUNT 18.8 K/uL (4.8-10.8)
--- NOTE | 2018-07-10 19:52 | CP.PCM.PN ---
Subjective - Date & Time of Evaluation Date of Evaluation: 07/10/18 Time of Evaluation: 19:42 - Subjective Subjective: I D NOTE CONSULT DICTATED HAVE STARTED ON RENAL ADJUSTED DOSES OF ZOSYN AND MEROPENEM Objective - Vital Signs/Intake and Output Vital Signs (last 24 hours): Temp Pulse Resp BP Pulse Ox 99.3 F 75 17 142/61 100 07/10/18 18:00 07/10/18 18:00 07/10/18 18:00 07/10/18 18:00 07/10/18 18:00 Intake and Output: 07/10/18 07/11/18 18:59 06:59 Intake Total 3450 Output Total 10 Balance 3440 - Medications Medications: Current Medications Enoxaparin Sodium (Lovenox) 30 mg SC DAILY ANTONY; Protocol Last Admin: 07/08/18 09:10 Dose: 30 mg Sodium Chloride (Sodium Chloride 0.9%) 1,000 mls @ 999 mls/hr IV .Q1H1M ANTONY Stop: 07/11/18 01:49 Last Admin: 07/10/18 14:56 Dose: 999 mls/hr Pantoprazole Sodium 40 mg/ (Sodium Chloride) 100 mls @ 20 mls/hr IVPB Q5H ANTONY Last Admin: 07/10/18 14:27 Dose: 20 mls/hr Norepinephrine Bitartrate 4 mg (/ Dextrose) 254 mls @ 9.53 mls/hr IV .Q24H ANTONY; Protocol Last Titration: 07/10/18 14:58 Dose: 5 mcg/min, 19.05 mls/hr Piperacillin Sod/Tazobactam (Sod 2.25 gm/ Sodium Chloride) 100 mls @ 100 mls/hr IVPB Q12 ANTONY; Protocol Meropenem 500 mg/ Sodium (Chloride) 100 mls @ 100 mls/hr IVPB Q12H ANTONY; Protocol Last Admin: 07/10/18 14:00 Dose: 100 mls/hr Sodium Chloride (Sodium Chloride 0.9%) 1,000 mls @ 999 mls/hr IV .Q1H1M ANTONY Stop: 07/11/18 15:23 Insulin Human Lispro (Humalog) 0 units SC ACHS ANTONY; Protocol Last Admin: 07/10/18 16:30 Dose: 1 units Ipratropium [place] (Atrovent) 0.5 mg IH RQ6 ANTONY Last Admin: 07/10/18 19:16 Dose: 0.5 mg Latanoprost (Xalatan Opht) 1 drop OD HS [facility] Last Admin: 07/09/18 21:45 Dose: 1 drop Metoprolol Tartrate (Lopressor) 150 mg PO Q12@0700,1900 [facility] Last Admin: 07/10/18 18:56 Dose: Not Given Ondansetron HCl (Zofran Inj) 4 mg IVP Q6 PRN PRN Reason: Nausea/Vomiting - Labs Labs: 07/10/18 17:25 07/10/18 09:45 PT 19.6 Seconds (9.8-13.1) H 07/10/18 02:30 INR 1.7 07/10/18 02:30 APTT 47.8 Seconds (25.6-37.1) H 07/10/18 02:30
[2018-07-10] MEDS: Latanoprost 0.005% Opht SOUTION OD SCH (22:13)
[2018-07-11] MEDS: Meropenem 500 MG in Sodium Chloride 0.9% 100 ML IVPB SCH ×2 (00:16→12:20)
[2018-07-11] MEDS: Ipratropium 0.02% Inhal Soln (0.5 mg/2.5 ml) UD IH SCH ×5 (01:00→19:27)
[2018-07-11] MEDS: Pantoprazole 40 MG in Sodium Chloride 0.9% 100 ML IVPB SCH ×2 (01:33→06:50)
[2018-07-11 04:52] LABS: BASO # 0.1 K/uL (0.0-0.2); BASO % 0.4 % (0.0-2.0); EOS # 0.2 K/uL (0.0-0.7); EOS % 1.1 % (0.0-4.0); HEMOGLOBIN 8.2 g/dL (12.0-18.0); LYMPH # 0.9 K/uL (1.0-4.3); LYMPH % 4.8 % (20.0-40.0); MEAN CELL VOLUME 89.3 fl (80.0-94.0); MEAN CORPUSCULAR HGB CONC 33.6 g/dL (33.0-37.0); MEAN PLATELET VOLUME 8.3 fl (7.2-11.7); MONO # 0.5 K/uL (0.0-0.8); MONO % 2.5 % (0.0-10.0); NEUT # 16.6 K/uL (1.8-7.0); NEUT % 91.2 % (50.0-75.0); NRBC % 1.4 % (0.0-0.0); RBC 2.72 Mil/uL (4.40-5.90); RED CELL DISTRIBUTION WIDTH 15.8 % (11.5-14.5); WHITE BLOOD COUNT 18.2 K/uL (4.8-10.8)
[2018-07-11 05:06] LABS: ALB/GLOB RATIO 0.8 (1.0-2.1); ALBUMIN 2.4 g/dL (3.5-5.0); CALCIUM 6.6 mg/dL (8.4-10.2)
[2018-07-11 05:14] LABS: ABG ALLEN TEST YES; ARTERIAL BLOOD GAS HEMOGLOBIN 8.6 g/dL (11.7-17.4); ARTERIAL BLOOD GAS O2 CAPACITY 12.2 mL/dL (16-24); ARTERIAL BLOOD GAS O2 CONTENT 12.3 ML/dL (15-23); ARTERIAL BLOOD GAS O2 SAT 100.9 % (95-98); ARTERIAL BLOOD GAS PCO2 28 mm/Hg (35-45); ARTERIAL BLOOD GAS PH 7.45 (7.35-7.45); ARTERIAL BLOOD GAS PO2 203 mm/Hg (80-100); ARTERIAL BLOOD GAS TCO2 20.4 mmol/L (22-28)
[2018-07-11] MEDS: Insulin Lispro (humaLOG) 100 Units/ml Inj SC SCH ×4 (06:49→21:18)
--- NOTE | 2018-07-11 07:31 | CP.PCM.PN ---
<Delonte [place] - Last Filed: 07/11/18 13:22> Subjective - Date & Time of Evaluation Date of Evaluation: 07/11/18 Time of Evaluation: 07:27 - Subjective Subjective: Surgery Progress Note for Dr. Omer 78M seen and evaluated at bedside this morning. Patient intubated, comatose GCS 3T. Hgb currently stable at 8.2, 8.3 yesterday. No events overnight. Patient tachycardic. ROS unobtainable due to clinical state. Objective - Vital Signs/Intake and Output Vital Signs (last 24 hours): Temp Pulse Resp BP Pulse Ox 98.8 F 132 H 18 129/62 100 07/11/18 05:00 07/11/18 06:00 07/11/18 06:00 07/11/18 06:00 07/11/18 06:00 Intake and Output: 07/11/18 07/11/18 06:59 18:59 Intake Total 723 Output Total 10 Balance 713 - Medications Medications: Current Medications Enoxaparin Sodium (Lovenox) 30 mg SC DAILY [facility]; Protocol Last Admin: 07/08/18 09:10 Dose: 30 mg Pantoprazole Sodium 40 mg/ (Sodium Chloride) 100 mls @ 20 mls/hr IVPB Q5H [facility] Last Admin: 07/11/18 06:50 Dose: 20 mls/hr Norepinephrine Bitartrate 4 mg (/ Dextrose) 254 mls @ 9.53 mls/hr IV .Q24H [facility]; Protocol Last Titration: 07/11/18 00:21 Dose: 0 mcg/min, 0 mls/hr Piperacillin Sod/Tazobactam (Sod 2.25 gm/ Sodium Chloride) 100 mls @ 100 mls/hr IVPB Q12 [facility]; Protocol Last Admin: 07/10/18 20:14 Dose: 100 mls/hr Meropenem 500 mg/ Sodium (Chloride) 100 mls @ 100 mls/hr IVPB Q12H [facility]; Protocol Last Admin: 07/11/18 00:16 Dose: 100 mls/hr Sodium Chloride (Sodium Chloride 0.9%) 1,000 mls @ 999 mls/hr IV .Q1H1M [facility] Stop: 07/11/18 15:23 Insulin Human Lispro (Humalog) 0 units SC ACHS [facility]; Protocol Last Admin: 07/11/18 06:49 Dose: Not Given Ipratropium Sunbright (Atrovent) 0.5 mg IH RQ6 [facility] Last Admin: 07/11/18 01:00 Dose: 0.5 mg Latanoprost (Xalatan Opht) 1 drop OD HS [facility] Last Admin: 07/10/18 22:13 Dose: 1 drop Metoprolol Tartrate (Lopressor) 150 mg PO Q12@0700,1900 [facility] Last Admin: 07/11/18 06:09 Dose: Not Given Ondansetron HCl (Zofran Inj) 4 mg IVP Q6 PRN PRN Reason: Nausea/Vomiting - Labs Labs: 07/11/18 04:10 07/11/18 04:10 PT 19.6 Seconds (9.8-13.1) H 07/10/18 02:30 INR 1.7 07/10/18 02:30 APTT 47.8 Seconds (25.6-37.1) H 07/10/18 02:30 - Constitutional Appears: Other (intubated) - Head Exam Head Exam: ATRAUMATIC, NORMAL INSPECTION, NORMOCEPHALIC - Eye Exam Pupil Exam: Fixed - ENT Exam ENT Exam: Mucous Membranes Dry - Respiratory Exam Additional comments: mechanical ventilation - Cardiovascular Exam Cardiovascular Exam: Tachycardia - GI/Abdominal Exam Additional comments: right sided ecchymosis from RUQ to right flank surgical sites c/d/i - Exam Exam: Scrotal Swelling - Extremities Exam Extremities Exam: Pedal Edema - Neurological Exam Neurological Exam: absent: Awake Assessment and Plan - Assessment and Plan (Free Text) Assessment: 78M who is s/p lap ana maria with IOC POD#4 s/p cardiac arrest now with anemia, acute respiratory failure, APURVA, and anoxic brain injury Plan: Monitor H/H, Transfuse PRN Hold anticoagulation IV hydration Monitor abdomen for increase in hematoma FU neurology recs Recommend establishing goals of care Medical management as per ICU Further recommendations as per Dr. Berrios/Kan [place] PGY1 <Ge Omer - Last Filed: 07/11/18 13:39> Objective - Vital Signs/Intake and Output Vital Signs (last 24 hours): Temp Pulse Resp BP Pulse Ox 99.0 F 138 H 17 150/75 100 07/11/18 13:00 07/11/18 13:02 07/11/18 13:00 07/11/18 13:10 07/11/18 12:00 Intake and Output: 07/11/18 07/11/18 06:59 18:59 Intake Total 723 220 Output Total 10 10 Balance 713 210 - Medications Medications: Current Medications Enoxaparin Sodium (Lovenox) 30 mg SC DAILY [facility]; Protocol Last Admin: 07/08/18 09:10 Dose: 30 mg Piperacillin Sod/Tazobactam (Sod 2.25 gm/ Sodium Chloride) 100 mls @ 100 mls/hr IVPB Q12 [facility]; Protocol Last Admin: 07/11/18 08:43 Dose: 100 mls/hr Meropenem 500 mg/ Sodium (Chloride) 100 mls @ 100 mls/hr IVPB Q12H [facility]; Protocol Last Admin: 07/11/18 12:20 Dose: 100 mls/hr Sodium Chloride (Sodium Chloride 0.9%) 1,000 mls @ 999 mls/hr IV .Q1H1M [facility] Stop: 07/11/18 15:23 Insulin Human Lispro (Humalog) 0 units SC ACHS [facility]; Protocol Last Admin: 07/11/18 12:19 Dose: 1 units Ipratropium Sunbright (Atrovent) 0.5 mg IH RQ6 [facility] Last Admin: 07/11/18 13:15 Dose: Not Given Latanoprost (Xalatan Opht) 1 drop OD HS [facility] Last Admin: 07/10/18 22:13 Dose: 1 drop Metoprolol Tartrate (Lopressor) 150 mg PO Q12@0700,1900 [facility] Last Admin: 07/11/18 06:09 Dose: Not Given Metoprolol Tartrate (Lopressor) 5 mg IVP Q6 [facility] Last Admin: 07/11/18 09:26 Dose: 5 mg Ondansetron HCl (Zofran Inj) 4 mg IVP Q6 PRN PRN Reason: Nausea/Vomiting Pantoprazole Sodium (Protonix Inj) 40 mg IVP DAILY [facility] - Labs Labs: 07/11/18 04:10 07/11/18 04:10 PT 19.6 Seconds (9.8-13.1) H 07/10/18 02:30 INR 1.7 07/10/18 02:30 APTT 47.8 Seconds (25.6-37.1) H 07/10/18 02:30 Assessment and Plan - Assessment and Plan (Free Text) Plan: seen and examined at bedside family at bedside. Pt currently intubated, not responsive to stimili. Hemoglobin stable. gen: intubated, not responsive to painful stimuli resp: coarse BS, intubated abd: soft, distended, right flank ecchymosis, no ridigity 78yo M s/p laparoscopic cholecystectomy POD # 4, s/p cardiac arrest intubated -continue medical management -monitor HH -transfuse PRN -f/u neurologist
[2018-07-11] MEDS ORDERED: Lactated Ringer's 500 ML IV SCH (07:45)
--- NOTE | 2018-07-11 09:04 | PCM.VEEG ---
Video EEG - Procedure Start Date: 07/10/18 Start Time: 15:05 End Date: 07/11/18 End Time: 08:30 Technical Summary: DATA ACQUISITION: This was a multichannel inpatient video-EEG, a minimum of 22 channels were uti lized, performed in accordance with recommendations specified by the [place] [employer] (Zach Hirsch et al. ACNS Guideline 1: Minimum Technical Requirements for Performing Clinical Electroencephalography. Journal of Clinical Neurophysiology 2016;33:303-7). The 10-20 electrode placement system was utilized in accordance with guidelines detailed by the International Federation of Clinical Neurophysiology (Taniya Rojas et al. The Ten-Twenty Electrode System of the International Federation. Recommendations for the Practice of Clinical Neurophysiology: Guidelines of the International Federation of Clinical Physiology 1999; EEG Suppl. 52.). DATA REVIEW / SPIKE DETECTION / DIGITAL ANALYSIS: The entire EEG was scanned and reviewed. Synchronized audio and video recording were reviewed at the time of each alarm and whenever an abnormality or suspicious activity was noted. The entire recording was analyzed utilizing an automated digital spike and seizure analysis program and all automatic spike and seizure detections were manually reviewed. A compressed spectral array was displayed and reviewed alongside the raw EEG tracings. In addition, further analysis of the EEG was performed when abnormalities were identified, including montage changes, dipole source localization, and frequency band identification. Video portion of the study is necessary to correlate abnormal EEG activity with clinical behavior. This study was attended 24 hours per day. - Interpretation Description of the study: Indication Status Epilepticus following cardiac arrest. EEG Finding during wakefulness: Awake architecture was not seen EEG Finding during sleep: There was no recognizable sleep architecture Interictal non-epileptiform abnormalities: The EEG showed a burst suppression/attenuation pattern characterized by low amplitude burst of sharp activity lasting 1 or 2 seconds, with inter bursts periods of relative EEG attenuation lasting 10 to 20 seconds. EEG was non reactive. Interictal epileptiform abnormalities: None Ictal epileptiform abnormalities: None - Impression Impression: This is an abnormal video-EEG monitoring study due to the presence of 1- Burst suppression/attenuation pattern, marked diffuse attenuated slowing, No seizures, not in status epilepticus. 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
--- NOTE | 2018-07-11 09:14 | CP.PCM.PN ---
Subjective - Date & Time of Evaluation Date of Evaluation: 07/11/18 Time of Evaluation: 08:50 - Subjective Subjective: Overnight events noted. Discussed with the management information systems director. The patient continues to be ventilator dependent and quite unresponsive to painful stimuli. There is no spontaneous respiration. gatekeeper shows atrial fibrillation at a heart rate of 130 bpm and a blood pressure of 126/74 mmHg. Pedal pulses were palpable and extremities were warm area There has been virtually no urine output over last 24 hours in spite of fluid challenges. Pulse oximetry shows O2 saturation at 97 to 98% with an FiO2 of 50%. Physical examination showed an apical systolic murmur of mitral regurgitation. Abdomen is slightly distended. There is a large ecchymotic area in the right flank. Intestinal sounds were distant and extremely sluggish. The stool was again positive for occult blood. Labs show stable hemoglobin hematocrit. Azotemia keeps rising. Potassium level was normal. Liver enzymes show an abrupt rise also troponins are elevated. All represent ischemic injury. Dr. Morgan's note appreciated EEG recording in progress. Impression: Cardiac arrest with severe anoxic injury to the brain. Have discussed options with the family. Prognosis remains extremely poor. Objective - Vital Signs/Intake and Output Vital Signs (last 24 hours): Temp Pulse Resp BP Pulse Ox 98.8 F 127 H 21 128/104 H 100 07/11/18 08:00 07/11/18 08:00 07/11/18 08:00 07/11/18 08:45 07/11/18 08:00 Intake and Output: 07/11/18 07/11/18 06:59 18:59 Intake Total 723 40 Output Total 10 Balance 713 40 - Medications Medications: Current Medications Enoxaparin Sodium (Lovenox) 30 mg SC DAILY [facility]; Protocol Last Admin: 07/08/18 09:10 Dose: 30 mg Pantoprazole Sodium 40 mg/ (Sodium Chloride) 100 mls @ 20 mls/hr IVPB Q5H [facility] Last Admin: 07/11/18 06:50 Dose: 20 mls/hr Norepinephrine Bitartrate 4 mg (/ Dextrose) 254 mls @ 9.53 mls/hr IV .Q24H [facility]; Protocol Last Titration: 07/11/18 00:21 Dose: 0 mcg/min, 0 mls/hr Piperacillin Sod/Tazobactam (Sod 2.25 gm/ Sodium Chloride) 100 mls @ 100 mls/hr IVPB Q12 [facility]; Protocol Last Admin: 07/11/18 08:43 Dose: 100 mls/hr Meropenem 500 mg/ Sodium (Chloride) 100 mls @ 100 mls/hr IVPB Q12H [facility]; Protocol Last Admin: 07/11/18 00:16 Dose: 100 mls/hr Sodium Chloride (Sodium Chloride 0.9%) 1,000 mls @ 999 mls/hr IV .Q1H1M [facility] Stop: 07/11/18 15:23 Insulin Human Lispro (Humalog) 0 units SC ACHS [facility]; Protocol Last Admin: 07/11/18 06:49 Dose: Not Given Ipratropium Inez (Atrovent) 0.5 mg IH RQ6 [facility] Last Admin: 07/11/18 07:49 Dose: Not Given Latanoprost (Xalatan Opht) 1 drop OD HS [facility] Last Admin: 07/10/18 22:13 Dose: 1 drop Metoprolol Tartrate (Lopressor) 150 mg PO Q12@0700,1900 [facility] Last Admin: 07/11/18 06:09 Dose: Not Given Metoprolol Tartrate (Lopressor) 5 mg IVP Q6 [facility] Ondansetron HCl (Zofran Inj) 4 mg IVP Q6 PRN PRN Reason: Nausea/Vomiting - Labs Labs: 07/11/18 04:10 07/11/18 04:10 PT 19.6 Seconds (9.8-13.1) H 07/10/18 02:30 INR 1.7 07/10/18 02:30 APTT 47.8 Seconds (25.6-37.1) H 07/10/18 02:30
[2018-07-11] MEDS: Metoprolol 1 mg/ml Inj IVP SCH ×3 (09:26→21:15)
--- NOTE | 2018-07-11 10:30 | CP.PCM.CON ---
History of Present Illness - History of Present Illness History of Present Illness: The history was taken from the medical record and 3 members of his family at the bedside including the and the son Patient is 78 years of age male in the intensive care unit. I was called to see him for abnormal kidney function. Patient has very complicated medical history and briefly patient had acute cholecystitis and he had cholecystectomy and patient apparently developed cold perhaps more than once and he may became hyp otensive during that. Of time in addition patient has multitude of medical problem included but not limited to congestive cardiomyopathy history of pacemaker and coronary artery disease with atrial fibrillation. And the patient unresponsive Past medical history as noted above Patient with history of atrial fibrillation coronary artery disease, history of congestive cardiomyopathy, and also status post code apparently and patient became unresponsive Social history as noted in the medical record Review of Systems - Review of Systems Systems not reviewed;Unavailable: Respiratory Distress, Intubated - Constitutional Constitutional: Fatigue, Weakness. absent: Chills Additional comments: Intubated unresponsive - EENT Nose/Mouth/Throat: absent: Epistaxis - Cardiovascular Cardiovascular: absent: Dyspnea - Respiratory Respiratory: absent: Cough - Gastrointestinal Gastrointestinal: absent: Abdominal Pain, Coffee Ground Emesis, Diarrhea - Genitourinary Genitourinary: Nocturia - Integumentary Integumentary: absent: Acne - Neurological Neurological: As Per HPI - Psychiatric Psychiatric: As Per HPI - Endocrine Endocrine: As Per HPI - Hematologic/Lymphatic Hematologic: absent: Easy Bruising Past Patient History - Past Medical History & Family History Past Medical History?: Yes - Past Social History Smoking Status: Smoker Currrent Status Unknown Chewing Tobacco Use: No Cigar Use: No Alcohol: None Drugs: Denies Home Situation {Lives}: With Family - CARDIAC Hx Atrial Fibrillation: Yes Hx Cardia Arrhythmia: Yes (tachy/nasim) Hx Congestive Heart Failure: Yes Hx Heart Attack: Yes Hx Hypercholesterolemia: Yes Hx Hypertension: Yes Hx Pacemaker: Yes - PULMONARY Hx Bronchitis: Yes Hx Chronic Obstructive Pulmonary Disease (COPD): Yes Hx Pneumonia: Yes () - NEUROLOGICAL Hx Neurological Disorder: No Hx Transient Ischemic Attacks (TIA): No - HEENT Hx Glaucoma: Yes - RENAL Hx Chronic Kidney Disease: Yes - ENDOCRINE/METABOLIC Hx Diabetes Mellitus Type 2: Yes - HEMATOLOGICAL/ONCOLOGICAL Hx Anemia: No Hx Human Immunodeficiency Virus (HIV): No - INTEGUMENTARY Hx Dermatological Problems: No - MUSCULOSKELETAL/RHEUMATOLOGICAL Hx Arthritis: Yes Hx Fractures: No Hx Osteoporosis: Yes - GASTROINTESTINAL Hx Gastrointestinal Disorders: No - GENITOURINARY/GYNECOLOGICAL Hx Genitourinary Disorders: No - PSYCHIATRIC Hx Psychophysiologic Disorder: No Hx Substance Use: No - SURGICAL HISTORY Hx Cholecystectomy: Yes (current admission) Hx Coronary Artery Bypass Graft: Yes (1999) - ANESTHESIA Hx Anesthesia: Yes Hx Anesthesia Reactions: No Hx Malignant Hyperthermia: No Meds Allergies/Adverse Reactions: Allergies Allergy/AdvReac Type Severity Reaction Status Date / Time azithromycin Allergy ITCHING Verified 07/04/18 01:07 moxifloxacin [From Avelox] Allergy ITCHING Verified 07/04/18 01:07 - Medications Medications: Current Medications Enoxaparin Sodium (Lovenox) 30 mg SC DAILY ANTONY; Protocol Last Admin: 07/08/18 09:10 Dose: 30 mg Pantoprazole Sodium 40 mg/ (Sodium Chloride) 100 mls @ 20 mls/hr IVPB Q5H ANTONY Last Admin: 07/11/18 06:50 Dose: 20 mls/hr Norepinephrine Bitartrate 4 mg (/ Dextrose) 254 mls @ 9.53 mls/hr IV .Q24H ANTONY; Protocol Last Titration: 07/11/18 00:21 Dose: 0 mcg/min, 0 mls/hr Piperacillin Sod/Tazobactam (Sod 2.25 gm/ Sodium Chloride) 100 mls @ 100 mls/hr IVPB Q12 ANTONY; Protocol Last Admin: 07/11/18 08:43 Dose: 100 mls/hr Meropenem 500 mg/ Sodium (Chloride) 100 mls @ 100 mls/hr IVPB Q12H ANTONY; Protocol Last Admin: 07/11/18 00:16 Dose: 100 mls/hr Sodium Chloride (Sodium Chloride 0.9%) 1,000 mls @ 999 mls/hr IV .Q1H1M ANTONY Stop: 07/11/18 15:23 Insulin Human Lispro (Humalog) 0 units SC ACHS ANTONY; Protocol Last Admin: 07/11/18 06:49 Dose: Not Given Ipratropium [place] (Atrovent) 0.5 mg IH RQ6 ANTONY Last Admin: 07/11/18 07:49 Dose: Not Given Latanoprost (Xalatan Opht) 1 drop OD HS ANTONY Last Admin: 07/10/18 22:13 Dose: 1 drop Metoprolol Tartrate (Lopressor) 150 mg PO Q12@0700,1900 [facility] Last Admin: 07/11/18 06:09 Dose: Not Given Metoprolol Tartrate (Lopressor) 5 mg IVP Q6 [facility] Last Admin: 07/11/18 09:26 Dose: 5 mg Ondansetron HCl (Zofran Inj) 4 mg IVP Q6 PRN PRN Reason: Nausea/Vomiting Physical Exam - Constitutional Appears: In Acute Distress - Eye Exam Eye Exam: Conjunctival injection - ENT Exam ENT Exam: Mucous Membranes Moist - Neck Exam Neck exam: Negative for: Lymphadenopathy - Respiratory Exam Respiratory Exam: Rhonchi. absent: Chest Wall Tenderness - GI/Abdominal Exam GI & Abdominal Exam: Normal Bowel Sounds. absent: Guarding Additional comments: Ascites - Exam Additional comments: Scrotal edema - Extremities Exam Extremities exam: Positive for: pedal edema. Negative for: calf tenderness Additional comments: Bilateral leg edema up to the thigh - Back Exam Back exam: absent: CVA tenderness (L), CVA tenderness (R) - Psychiatric Exam Psychiatric exam: Flat Affect - Skin Skin Exam: Cyanosis Results - Vital Signs Recent Vital Signs: Last Vital Signs Temp 98.6 F 07/11/18 09:00 Pulse 127 H 07/11/18 09:26 Resp 15 07/11/18 09:00 BP 139/76 07/11/18 09:26 Pulse Ox 120 H 07/11/18 09:00 - Labs Result Diagrams: 07/11/18 04:10 07/11/18 04:10 Labs: Laboratory Results - last 24 hr 07/10/18 07/10/18 07/10/18 09:45 09:45 09:45 WBC 23.6 H RBC 3.34 L Hgb 10.0 L D Hct 30.1 L MCV 90.1 MCH 29.9 MCHC 33.2 RDW 15.7 H Plt Count 90 L D MPV 7.8 Neut % (Auto) 91.7 H Lymph % (Auto) 5.4 L Rogers % (Auto) 2.3 Eos % (Auto) 0.5 Baso % (Auto) 0.1 Neut # (Auto) 21.6 H Lymph # (Auto) 1.3 Rogers # (Auto) 0.5 Eos # (Auto) 0.1 Baso # (Auto) 0.0 Total Counted Neutrophils % (Manual) 70 Band Neutrophils % 18 H* Lymphocytes % (Manual) 6 L Reactive Lymphs % Monocytes % (Manual) 6 Eosinophils % (Manual) Basophils % (Manual) Metamyelocytes % Myelocytes % Promyelocytes % Blast Cells % Plasma Cell % (Manual) Nucleated RBC % 4 H Hypersegmented Polys Smudge Cells Toxic Granulation Dohle Bodies Jose Rods Platelet Estimate Decreased L Plt Clumps, EDTA Large Platelets Present Giant Platelets Present RBC Morphology Polychromasia Slight Hypochromasia (manual) Poikilocytosis (manual Slight Basophilic Stippling Anisocytosis (manual) Slight Microcytosis (manual) Macrocytosis (manual) Spherocytes Slight Sickle Cells Target Cells Tear Drop Cells Ovalocytes Slight Stomatocytes Helmet Cells [place] Bodies Sindi Cells Slight Acanthocytes (Spur) Rouleaux Schistocytes pCO2 pO2 HCO3 ABG pH ABG Total CO2 ABG O2 Saturation ABG O2 Content ABG Base Excess ABG Hemoglobin ABG Carboxyhemoglobin POC ABG HHb (Measured) ABG Methemoglobin ABG O2 Capacity Van Test VBG pH VBG pCO2 VBG HCO3 VBG Total CO2 VBG O2 Sat (Calc) VBG Base Excess VBG Potassium A-a O2 Difference Hgb O2 Saturation Glucose Lactate Vent Mode Mechanical Rate FiO2 Tidal Volume Crit Value Called To Crit Value Called By Crit Value Read Back Blood Gas Notified Time Sodium 139 Potassium 4.1 Chloride 105 Carbon Dioxide 17 L Anion Gap 21 H BUN 26 H Creatinine 2.6 H Est GFR ( Amer) 29 Est GFR (Non-Af Amer) 24 POC Glucose (mg/dL) Random Glucose 196 H Lactic Acid 7.6 H* Calcium 6.7 L Phosphorus Magnesium Total Bilirubin AST ALT Alkaline Phosphatase Troponin I Total Protein Albumin Globulin Albumin/Globulin Ratio Venous Blood Potassium Urine Color Urine Clarity Urine pH Ur Specific [place] Urine Protein Urine Glucose (UA) Urine Ketones Urine Blood Urine Nitrate Urine Bilirubin Urine Urobilinogen Ur Leukocyte Esterase Urine RBC (Auto) Urine Microscopic WBC Ur Squamous Epith Cells Urine Bacteria Ur Random Sodium Ur Random Potassium Stool Occult Blood 07/10/18 07/10/18 07/10/18 10:45 11:03 13:05 WBC RBC Hgb Hct MCV MCH MCHC RDW Plt Count MPV Neut % (Auto) Lymph % (Auto) Rogers % (Auto) Eos % (Auto) Baso % (Auto) Neut # (Auto) Lymph # (Auto) Rogers # (Auto) Eos # (Auto) Baso # (Auto) Total Counted Neutrophils % (Manual) Band Neutrophils % Lymphocytes % (Manual) Reactive Lymphs % Monocytes % (Manual) Eosinophils % (Manual) Basophils % (Manual) Metamyelocytes % Myelocytes % Promyelocytes % Blast Cells % Plasma Cell % (Manual) Nucleated RBC % Hypersegmented Polys Smudge Cells Toxic Granulation Dohle Bodies Jose Rods Platelet Estimate Plt Clumps, EDTA Large Platelets Giant Platelets RBC Morphology Polychromasia Hypochromasia (manual) Poikilocytosis (manual Basophilic Stippling Anisocytosis (manual) Microcytosis (manual) Macrocytosis (manual) Spherocytes Sickle Cells Target Cells Tear Drop Cells Ovalocytes Stomatocytes Helmet Cells [place] Bodies [place] Cells Acanthocytes (Spur) Rouleaux Schistocytes pCO2 pO2 33 HCO3 ABG pH ABG Total CO2 ABG O2 Saturation ABG O2 Content ABG Base Excess ABG Hemoglobin ABG Carboxyhemoglobin POC ABG HHb (Measured) ABG Methemoglobin ABG O2 Capacity Van Test VBG pH 7.40 VBG pCO2 33 L VBG HCO3 21.2 VBG Total CO2 21.4 L VBG O2 Sat (Calc) 73.7 H VBG Base Excess -3.6 L VBG Potassium 3.3 L A-a O2 Difference Hgb O2 Saturation Glucose 232 H Lactate 5.7 H* Vent Mode Mechanical Rate FiO2 50.0 Tidal Volume Crit Value Called To Irma dawn Crit Value Called By 23 Crit Value Read Back Y Blood Gas Notified Time 1315 Sodium 140.0 Potassium Chloride 107.0 Carbon Dioxide Anion Gap BUN Creatinine Est GFR ( Amer) Est GFR (Non-Af Amer) POC Glucose (mg/dL) 209 H Random Glucose Lactic Acid Calcium Phosphorus Magnesium Total Bilirubin AST ALT Alkaline Phosphatase Troponin I 1.4400 H* Total Protein Albumin Globulin Albumin/Globulin Ratio Venous Blood Potassium 3.3 L Urine Color Urine Clarity Urine pH Ur Specific [place] Urine Protein Urine Glucose (UA) Urine Ketones Urine Blood Urine Nitrate Urine Bilirubin Urine Urobilinogen Ur Leukocyte Esterase Urine RBC (Auto) Urine Microscopic WBC Ur Squamous Epith Cells Urine Bacteria Ur Random Sodium Ur Random Potassium Stool Occult Blood 07/10/18 07/10/18 07/10/18 15:00 15:34 16:17 WBC RBC Hgb Hct MCV MCH MCHC RDW Plt Count MPV Neut % (Auto) Lymph % (Auto) Rogers % (Auto) Eos % (Auto) Baso % (Auto) Neut # (Auto) Lymph # (Auto) Rogers # (Auto) Eos # (Auto) Baso # (Auto) Total Counted Neutrophils % (Manual) Band Neutrophils % Lymphocytes % (Manual) Reactive Lymphs % Monocytes % (Manual) Eosinophils % (Manual) Basophils % (Manual) Metamyelocytes % Myelocytes % Promyelocytes % Blast Cells % Plasma Cell % (Manual) Nucleated RBC % Hypersegmented Polys Smudge Cells Toxic Granulation Dohle Bodies Jose Rods Platelet Estimate Plt Clumps, EDTA Large Platelets Giant Platelets RBC Morphology Polychromasia Hypochromasia (manual) Poikilocytosis (manual Basophilic Stippling Anisocytosis (manual) Microcytosis (manual) Macrocytosis (manual) Spherocytes Sickle Cells Target Cells Tear Drop Cells Ovalocytes Stomatocytes Helmet Cells [place] Bodies [place] Cells Acanthocytes (Spur) Rouleaux Schistocytes pCO2 pO2 HCO3 ABG pH ABG Total CO2 ABG O2 Saturation ABG O2 Content ABG Base Excess ABG Hemoglobin ABG Carboxyhemoglobin POC ABG HHb (Measured) ABG Methemoglobin ABG O2 Capacity Van Test VBG pH VBG pCO2 VBG HCO3 VBG Total CO2 VBG O2 Sat (Calc) VBG Base Excess VBG Potassium A-a O2 Difference Hgb O2 Saturation Glucose Lactate Vent Mode Mechanical Rate FiO2 Tidal Volume Crit Value Called To Crit Value Called By Crit Value Read Back Blood Gas Notified Time Sodium Potassium Chloride Carbon Dioxide Anion Gap BUN Creatinine Est GFR ( Amer) Est GFR (Non-Af Amer) POC Glucose (mg/dL) 172 H Random Glucose Lactic Acid Calcium Phosphorus Magnesium Total Bilirubin AST ALT Alkaline Phosphatase Troponin I Total Protein Albumin Globulin Albumin/Globulin Ratio Venous Blood Potassium Urine Color Yellow Urine Clarity Turbid Urine pH 6.0 Ur Specific [place] 1.018 Urine Protein >=500 Urine Glucose (UA) 50 Urine Ketones Negative Urine Blood Large Urine Nitrate Negative Urine Bilirubin Negative Urine Urobilinogen 0.2-1.0 Ur Leukocyte Esterase Large Urine RBC (Auto) 274 H Urine Microscopic WBC 316 H Ur Squamous Epith Cells 3 Urine Bacteria Occ H Ur Random Sodium Ur Random Potassium Stool Occult Blood Positive H 07/10/18 07/10/18 07/10/18 17:25 17:25 17:25 WBC 18.8 H RBC 2.80 L Hgb 8.3 L Hct 25.1 L MCV 89.6 MCH 29.7 MCHC 33.1 RDW 15.9 H Plt Count 70 L D MPV Neut % (Auto) Lymph % (Auto) Rogers % (Auto) Eos % (Auto) Baso % (Auto) Neut # (Auto) Lymph # (Auto) Rogers # (Auto) Eos # (Auto) Baso # (Auto) Total Counted Neutrophils % (Manual) Band Neutrophils % Lymphocytes % (Manual) Reactive Lymphs % Monocytes % (Manual) Eosinophils % (Manual) Basophils % (Manual) Metamyelocytes % Myelocytes % Promyelocytes % Blast Cells % Plasma Cell % (Manual) Nucleated RBC % Hypersegmented Polys Smudge Cells Toxic Granulation Dohle Bodies Jose Rods Platelet Estimate Plt Clumps, EDTA Large Platelets Giant Platelets RBC Morphology Polychromasia Hypochromasia (manual) Poikilocytosis (manual Basophilic Stippling Anisocytosis (manual) Microcytosis (manual) Macrocytosis (manual) Spherocytes Sickle Cells Target Cells Tear Drop Cells Ovalocytes Stomatocytes Helmet Cells [place] Bodies Sindi Cells Acanthocytes (Spur) Rouleaux Schistocytes pCO2 pO2 HCO3 ABG pH ABG Total CO2 ABG O2 Saturation ABG O2 Content ABG Base Excess ABG Hemoglobin ABG Carboxyhemoglobin POC ABG HHb (Measured) ABG Methemoglobin ABG O2 Capacity Van Test VBG pH VBG pCO2 VBG HCO3 VBG Total CO2 VBG O2 Sat (Calc) VBG Base Excess VBG Potassium A-a O2 Difference Hgb O2 Saturation Glucose Lactate Vent Mode Mechanical Rate FiO2 Tidal Volume Crit Value Called To Crit Value Called By Crit Value Read Back Blood Gas Notified Time Sodium Potassium Chloride Carbon Dioxide Anion Gap BUN Creatinine Est GFR ( Amer) Est GFR (Non-Af Amer) POC Glucose (mg/dL) Random Glucose Lactic Acid 3.0 H Calcium Phosphorus Magnesium Total Bilirubin AST ALT Alkaline Phosphatase Troponin I Total Protein Albumin Globulin Albumin/Globulin Ratio Venous Blood Potassium Urine Color Urine Clarity Urine pH Ur Specific [place] Urine Protein Urine Glucose (UA) Urine Ketones Urine Blood Urine Nitrate Urine Bilirubin Urine Urobilinogen Ur Leukocyte Esterase Urine RBC (Auto) Urine Microscopic WBC Ur Squamous Epith Cells Urine Bacteria Ur Random Sodium 138 Ur Random Potassium 45.4 Stool Occult Blood 07/10/18 07/11/18 07/11/18 20:44 04:10 04:10 WBC 18.2 H RBC 2.72 L Hgb 8.2 L Hct 24.3 L MCV 89.3 MCH 30.0 MCHC 33.6 RDW 15.8 H Plt Count 56 L MPV 8.3 Neut % (Auto) 91.2 H Lymph % (Auto) 4.8 L Rogers % (Auto) 2.5 Eos % (Auto) 1.1 Baso % (Auto) 0.4 Neut # (Auto) 16.6 H Lymph # (Auto) 0.9 L Rogers # (Auto) 0.5 Eos # (Auto) 0.2 Baso # (Auto) 0.1 Total Counted Cancelled Neutrophils % (Manual) Cancelled Band Neutrophils % Cancelled Lymphocytes % (Manual) Cancelled Reactive Lymphs % Cancelled Monocytes % (Manual) Cancelled Eosinophils % (Manual) Cancelled Basophils % (Manual) Cancelled Metamyelocytes % Cancelled Myelocytes % Cancelled Promyelocytes % Cancelled Blast Cells % Cancelled Plasma Cell % (Manual) Cancelled Nucleated RBC % Cancelled Hypersegmented Polys Cancelled Smudge Cells Cancelled Toxic Granulation Cancelled Dohle Bodies Cancelled Jose Rods Cancelled Platelet Estimate Cancelled Plt Clumps, EDTA Cancelled Large Platelets Cancelled Giant Platelets Cancelled RBC Morphology Cancelled Polychromasia Cancelled Hypochromasia (manual) Cancelled Poikilocytosis (manual Cancelled Basophilic Stippling Cancelled Anisocytosis (manual) Cancelled Microcytosis (manual) Cancelled Macrocytosis (manual) Cancelled Spherocytes Cancelled Sickle Cells Cancelled Target Cells Cancelled Tear Drop Cells Cancelled Ovalocytes Cancelled Stomatocytes Cancelled Helmet Cells Cancelled [place] Bodies Cancelled Sindi Cells Cancelled Acanthocytes (Spur) Cancelled Rouleaux Cancelled Schistocytes Cancelled pCO2 pO2 HCO3 ABG pH ABG Total CO2 ABG O2 Saturation ABG O2 Content ABG Base Excess ABG Hemoglobin ABG Carboxyhemoglobin POC ABG HHb (Measured) ABG Methemoglobin ABG O2 Capacity Van Test VBG pH VBG pCO2 VBG HCO3 VBG Total CO2 VBG O2 Sat (Calc) VBG Base Excess VBG Potassium A-a O2 Difference Hgb O2 Saturation Glucose Lactate Vent Mode Mechanical Rate FiO2 Tidal Volume Crit Value Called To Crit Value Called By Crit Value Read Back Blood Gas Notified Time Sodium 140 Potassium 3.7 Chloride 108 H Carbon Dioxide 22 Anion Gap 14 BUN 36 H Creatinine 3.3 H Est GFR ( Amer) 22 Est GFR (Non-Af Amer) 18 POC Glucose (mg/dL) 152 H Random Glucose 131 H Lactic Acid Calcium 6.6 L Phosphorus 4.1 Magnesium 1.7 Total Bilirubin 2.3 H AST 1335 H ALT 587 H D Alkaline Phosphatase 70 Troponin I Total Protein 5.5 L Albumin 2.4 L Globulin 3.1 Albumin/Globulin Ratio 0.8 L Venous Blood Potassium Urine Color Urine Clarity Urine pH Ur Specific [place] Urine Protein Urine Glucose (UA) Urine Ketones Urine Blood Urine Nitrate Urine Bilirubin Urine Urobilinogen Ur Leukocyte Esterase Urine RBC (Auto) Urine Microscopic WBC Ur Squamous Epith Cells Urine Bacteria Ur Random Sodium Ur Random Potassium Stool Occult Blood 07/11/18 07/11/18 04:55 06:48 WBC RBC Hgb Hct MCV MCH MCHC RDW Plt Count MPV Neut % (Auto) Lymph % (Auto) Rogers % (Auto) Eos % (Auto) Baso % (Auto) Neut # (Auto) Lymph # (Auto) Rogers # (Auto) Eos # (Auto) Baso # (Auto) Total Counted Neutrophils % (Manual) Band Neutrophils % Lymphocytes % (Manual) Reactive Lymphs % Monocytes % (Manual) Eosinophils % (Manual) Basophils % (Manual) Metamyelocytes % Myelocytes % Promyelocytes % Blast Cells % Plasma Cell % (Manual) Nucleated RBC % Hypersegmented Polys Smudge Cells Toxic Granulation Dohle Bodies Jose Rods Platelet Estimate Plt Clumps, EDTA Large Platelets Giant Platelets RBC Morphology Polychromasia Hypochromasia (manual) Poikilocytosis (manual Basophilic Stippling Anisocytosis (manual) Microcytosis (manual) Macrocytosis (manual) Spherocytes Sickle Cells Target Cells Tear Drop Cells Ovalocytes Stomatocytes Helmet Cells [place] Bodies [place] Cells Acanthocytes (Spur) Rouleaux Schistocytes pCO2 28 L pO2 203 H HCO3 22.0 ABG pH 7.45 ABG Total CO2 20.4 L ABG O2 Saturation 100.9 H ABG O2 Content 12.3 L ABG Base Excess -3.8 L ABG Hemoglobin 8.6 L ABG Carboxyhemoglobin 1.9 H POC ABG HHb (Measured) -0.9 L ABG Methemoglobin 1.5 ABG O2 Capacity 12.2 L Van Test Yes VBG pH VBG pCO2 VBG HCO3 VBG Total CO2 VBG O2 Sat (Calc) VBG Base Excess VBG Potassium A-a O2 Difference 190.0 Hgb O2 Saturation 97.5 Glucose Lactate Vent Mode A/c Mechanical Rate 12 FiO2 60.0 Tidal Volume 450 Crit Value Called To Crit Value Called By Crit Value Read Back Blood Gas Notified Time Sodium Potassium Chloride Carbon Dioxide Anion Gap BUN Creatinine Est GFR ( Amer) Est GFR (Non-Af Amer) POC Glucose (mg/dL) 140 H Random Glucose Lactic Acid Calcium Phosphorus Magnesium Total Bilirubin AST ALT Alkaline Phosphatase Troponin I Total Protein Albumin Globulin Albumin/Globulin Ratio Venous Blood Potassium Urine Color Urine Clarity Urine pH Ur Specific [place] Urine Protein Urine Glucose (UA) Urine Ketones Urine Blood Urine Nitrate Urine Bilirubin Urine Urobilinogen Ur Leukocyte Esterase Urine RBC (Auto) Urine Microscopic WBC Ur Squamous Epith Cells Urine Bacteria Ur Random Sodium Ur Random Potassium Stool Occult Blood Assessment & Plan (1) Acute blood loss anemia Status: Acute Priority: High (2) Altered mental status Status: Acute Priority: High - Assessment and Plan (Free Text) Assessment: Oliguric acute kidney injury related to hemodynamic changes and perhaps status post code with hypotensive episode may be Superimposed on history of chronic kidney disease stage III Not responsive Respiratory failure intubation Massive edema of the lower extremity and hydrocele Atrial fibrillation Hypocalcemia with hypoalbuminemia Pacemaker Status post cholecystectomy The plan Discussed with the jewelry estimator and the family at the bedside and also spoke to the kitchen chef the primary care Dr Onofre Patient was given volume expansion last night about 3 L of fluid with very little urine output if any Lasix 120 mg was given to be repeated in another 2 to 3 hours if not responding Add Zaroxolyn 5 mg stat through the NG tube Suggest to give 25% 50 cc Albumin every 6 hours for the next 24 hours Stat spot urine for sodium osmolarity and creatinine I offered dialysis including pros and cons and they are thinking about they will discuss with Dr Onofre and among themselves / the prognosis is poor
--- NOTE | 2018-07-11 10:44 | CP.PCM.PN ---
Subjective - Date & Time of Evaluation Date of Evaluation: 07/11/18 Time of Evaluation: 10:42 - Subjective Subjective: Neuro Follow-Up Note: Mr. Jackson was evaluated this morning in the ICU. Son present at bedside. Connected to the VEEG; waiting for [employer] to disconnect leads. [facility] no [facility]. Per the son, pt has not moved any extremities so far today. ROS is unobtainable from the pt 2/2 his current status. Objective - Vital Signs/Intake and Output Vital Signs (last 24 hours): Temp Pulse Resp BP Pulse Ox 98.6 F 127 H 15 139/76 120 H 07/11/18 09:00 07/11/18 09:26 07/11/18 09:00 07/11/18 09:26 07/11/18 09:00 Intake and Output: 07/11/18 07/11/18 06:59 18:59 Intake Total 723 40 Output Total 10 Balance 713 40 - Medications Medications: Current Medications Enoxaparin Sodium (Lovenox) 30 mg SC DAILY ANTONY; Protocol Last Admin: 07/08/18 09:10 Dose: 30 mg Pantoprazole Sodium 40 mg/ (Sodium Chloride) 100 mls @ 20 mls/hr IVPB Q5H ANTONY Last Admin: 07/11/18 06:50 Dose: 20 mls/hr Norepinephrine Bitartrate 4 mg (/ Dextrose) 254 mls @ 9.53 mls/hr IV .Q24H ANTONY; Protocol Last Titration: 07/11/18 00:21 Dose: 0 mcg/min, 0 mls/hr Piperacillin Sod/Tazobactam (Sod 2.25 gm/ Sodium Chloride) 100 mls @ 100 mls/hr IVPB Q12 ANTONY; Protocol Last Admin: 07/11/18 08:43 Dose: 100 mls/hr Meropenem 500 mg/ Sodium (Chloride) 100 mls @ 100 mls/hr IVPB Q12H ANTONY; Protocol Last Admin: 07/11/18 00:16 Dose: 100 mls/hr Sodium Chloride (Sodium Chloride 0.9%) 1,000 mls @ 999 mls/hr IV .Q1H1M ANTONY Stop: 07/11/18 15:23 Insulin Human Lispro (Humalog) 0 units SC ACHS ANTONY; Protocol Last Admin: 07/11/18 06:49 Dose: Not Given Ipratropium [place] (Atrovent) 0.5 mg IH RQ6 [facility] Last Admin: 07/11/18 07:49 Dose: Not Given Latanoprost (Xalatan Opht) 1 drop OD HS [facility] Last Admin: 07/10/18 22:13 Dose: 1 drop Metoprolol Tartrate (Lopressor) 150 mg PO Q12@0700,1900 [facility] Last Admin: 07/11/18 06:09 Dose: Not Given Metoprolol Tartrate (Lopressor) 5 mg IVP Q6 [facility] Last Admin: 07/11/18 09:26 Dose: 5 mg Ondansetron HCl (Zofran Inj) 4 mg IVP Q6 PRN PRN Reason: Nausea/Vomiting - Labs Labs: 07/11/18 04:10 07/11/18 04:10 PT 19.6 Seconds (9.8-13.1) H 07/10/18 02:30 INR 1.7 07/10/18 02:30 APTT 47.8 Seconds (25.6-37.1) H 07/10/18 02:30 - Constitutional Appears: Other (intubated, on mech vent, no sedation, does not follow commands) - Head Exam Additional comments: VEEG leads with gauze covering head, unable to examine - Eye Exam Additional comments: Pupils are reactive but sluggish Sluggish dolls eye response b/l No corneals noted Does not open eyes spontaneously. - ENT Exam ENT Exam: Mucous Membranes Moist Additional comments: intubated, on mech vent - Neck Exam Neck Exam: Normal Inspection - Respiratory Exam Respiratory Exam: absent: NORMAL BREATHING PATTERN Additional comments: intubated, on mech vent - Cardiovascular Exam Cardiovascular Exam: Tachycardia, Irregular Rhythm - Extremities Exam Extremities Exam: absent: Calf Tenderness, Full ROM, Pedal Edema Additional comments: BUE flaccid Some stiffness noted to LLE; unable to bend RLE 2/2 previous surgeries (not new finding per son) No purposeful or non-purposeful movements noted ; does not withdraw to or localize pain - Neurological Exam Neurological Exam: Altered Additional comments: Pt is intubated, on mech vent, no sedation. Does not follow commands. Pupils are reactive but sluggish Sluggish dolls eye response b/l No corneals noted Does not open eyes spontaneously. BUE flaccid Some stiffness noted to LLE; unable to bend RLE 2/2 previous surgeries (not new finding per son) No purposeful or non-purposeful movements noted to extremities with painful stimuli; no tremors noted. No plantar response noted today GCS 3T - Psychiatric Exam Additional comments: intubated, on mech vent; does not follow commands - Skin Skin Exam: Normal Color Assessment and Plan (1) Anoxic brain injury Assessment & Plan: Imaging reviewed: -EEG (07/10/18): Impression: This is an abnormal video-EEG monitoring study due to the presence of 1-Burst suppression/attenuation pattern, marked diffuse attenuated slowing; No seizures, not in status epilepticus. 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 -CT Head without contrast ordered yesterday, still pending--f/u with results. -June d/c VEEG. -Continue conservative management. -All family questions and concerns discussed with Dr. Morgan today at bedside. -Notify neuro team of any acute changes in pt's condition. Keturah Nguyen, GABRIELA, STR[employer] CUTTING MACHINE OPERATOR d/w Dr. Morgan Status: Acute
--- NOTE | 2018-07-11 10:45 | CARD ---
APPROVED REPORT Date of service: 07/11/2018 EKG Measurement Heart [id number] <Conclusion> Atrial fibrillation with rapid ventricular response Right bundle branch block Abnormal ECG
[2018-07-11] MEDS ORDERED: metOLazone 5 MG TAB PO ONE (10:51)
--- NOTE | 2018-07-11 11:30 | CP.CCUPN ---
<Patrick Abel - Last Filed: 07/11/18 11:00> CCU Subjective - Physician Review Events Since Last Encounter (Free Text): 07/11/18 10:30 Overnight, Levophed weaned off. HR in 150's w/ cardiac surgeon demonstrating Afibb Urine output 25cc overnight Pt seen and examined this morning. Intubated on MV AC/12/450/40%/5 GCS 3 Pupils nonreactive, right gaze preference (+) cough (-) gag reflex No response to pain stimulus Family at bedside. 07/11/18 11:28 Critical Care Time Spent (in minutes): 35 CCU Objective - Vital Signs / Intake & Output Vital Signs (Last 4 hours): Vital Signs Temp Pulse Resp BP Pulse Ox 07/11/18 09:26 127 H 139/76 07/11/18 09:00 98.6 F 131 H 15 139/76 120 H 07/11/18 08:45 128/104 H 07/11/18 08:00 98.8 F 127 H 21 128/104 H 100 07/11/18 06:00 132 H 18 129/62 100 Intake and Output (Last 8hrs): Intake & Output 07/10/18 07/11/18 07/11/18 22:59 06:59 14:59 Intake Total 1734 289 40 Output Total 10 Balance 1734 279 40 Intake: IV 634 189 40 Intake, Piggyback 1100 100 Output: Urine 10 Urethral (Villa) 10 - Physical Exam Head: Positive for: Atraumatic Pupils: Positive for: PERRL (no response), Non-Reactive Extroacular Muscles: Negative for: EOMI, Gaze Palsy Mouth: Positive for: Moist Mucous Membranes Respiratory/Chest: Positive for: Clear to Auscultation. Negative for: Respiratory Distress Abdomen: Positive for: Distention, Normal Bowel Sounds, Other (Right sided ecchymosis extending to both upper and lower quadrants, tense. Unable to assess pain. ) Genitourinary Male: Positive for: Testicle Swelling (significant scrotal swelling ) Upper Extremity: Positive for: Capillary Refill < 2s. Negative for: Edema Lower Extremity: Negative for: Edema Neurological: Positive for: Other (Pupils 3mm pin point, minimally reactive, no gaze pref) Skin: Positive for: Normal Color Psychiatric: Negative for: Alert (GCS3), Oriented x 3 - Medications Active Medications: Active Medications Generic Name Dose Route Start Last Admin Trade Name Freq PRN Reason Stop Dose Admin Enoxaparin Sodium 30 mg 07/05/18 09:00 07/08/18 09:10 Lovenox SC 30 mg DAILY ANTONY Administration Protocol Pantoprazole Sodium 40 mg/ 100 mls @ 20 mls/hr 07/10/18 09:00 07/11/18 06:50 Sodium Chloride IVPB 20 mls/hr Q5H ANTONY Administration 8 MG/HR Norepinephrine Bitartrate 4 mg 254 mls @ 9.53 mls/hr 07/10/18 11:00 07/11/18 00:21 / Dextrose IV 0 mcg/min .Q24H ANTONY 0 mls/hr Titration Protocol 2.5 MCG/MIN Piperacillin Sod/Tazobactam 100 mls @ 100 mls/hr 07/10/18 21:00 07/11/18 08:43 Sod 2.25 gm/ Sodium Chloride IVPB 100 mls/hr Q12 ANTONY Administration Protocol Meropenem 500 mg/ Sodium 100 mls @ 100 mls/hr 07/10/18 13:15 07/11/18 00:16 Chloride IVPB 100 mls/hr Q12H ANTNOY Administration Protocol Sodium Chloride 1,000 mls @ 999 mls/hr 07/10/18 15:30 Sodium Chloride 0.9% IV 07/11/18 15:23 .Q1H1M ANTONY Insulin Human Lispro 0 units 07/09/18 07:30 07/11/18 06:49 Humalog SC Not Given ACHS ANTONY Protocol Ipratropium Jasper 0.5 mg 07/10/18 14:00 07/11/18 07:49 Atrovent IH Not Given RQ6 ANTONY Latanoprost 1 drop 07/04/18 22:00 07/10/18 22:13 Xalatan Opht OD 1 drop HS ANTONY Administration Metoprolol Tartrate 150 mg 07/09/18 21:00 07/11/18 06:09 Lopressor PO Not Given Q12@0700,1900 ANTONY Metoprolol Tartrate 5 mg 07/11/18 10:00 07/11/18 09:26 Lopressor IVP 5 mg Q6 ANTONY Administration Ondansetron HCl 4 mg 07/04/18 08:08 Zofran Inj IVP Q6 PRN Nausea/Vomiting - Patient Studies Lab Studies: Microbiology Studies 07/10/18 14:34 Gram Stain - Final Sputum Induced Lab Studies 07/11/18 07/11/18 07/11/18 Range/Units 06:48 04:55 04:10 WBC (4.8-10.8) K/uL RBC (4.40-5.90) Mil/uL Hgb (12.0-18.0) g/dL Hct (35.0-51.0) % MCV (80.0-94.0) fl MCH (27.0-31.0) pg MCHC (33.0-37.0) g/dL RDW (11.5-14.5) % Plt Count (130-400) K/uL MPV (7.2-11.7) fl Neut % (Auto) (50.0-75.0) % Lymph % (Auto) (20.0-40.0) % [place] % (Auto) (0.0-10.0) % Eos % (Auto) (0.0-4.0) % Baso % (Auto) (0.0-2.0) % Neut # (Auto) (1.8-7.0) K/uL Lymph # (Auto) (1.0-4.3) K/uL [place] # (Auto) (0.0-0.8) K/uL Eos # (Auto) (0.0-0.7) K/uL Baso # (Auto) (0.0-0.2) K/uL Total Counted Neutrophils % (Manual) (42-75) % Band Neutrophils % (0-2) % Lymphocytes % (Manual) (20-50) % Reactive Lymphs % Monocytes % (Manual) (0-10) % Eosinophils % (Manual) Basophils % (Manual) Metamyelocytes % Myelocytes % Promyelocytes % Blast Cells % Plasma Cell % (Manual) Nucleated RBC % (0-0) % Hypersegmented Polys Smudge Cells Toxic Granulation Dohle Bodies Jose Rods Platelet Estimate (NORMAL) Plt Clumps, EDTA Large Platelets Giant Platelets RBC Morphology Polychromasia Hypochromasia (manual) Poikilocytosis (manual Basophilic Stippling Anisocytosis (manual) Microcytosis (manual) Macrocytosis (manual) Spherocytes Sickle Cells Target Cells Tear Drop Cells Ovalocytes Stomatocytes Helmet Cells [place] Bodies Lynch Cells Acanthocytes (Spur) Rouleaux Schistocytes pCO2 28 L (35-45) mm/Hg pO2 203 H (30-55) mm/Hg HCO3 22.0 (21-28) mmol/L ABG pH 7.45 (7.35-7.45) ABG Total CO2 20.4 L (22-28) mmol/L ABG O2 Saturation 100.9 H (95-98) % ABG O2 Content 12.3 L (15-23) ML/dL ABG Base Excess -3.8 L (-2.0-3.0) mmol/L ABG Hemoglobin 8.6 L (11.7-17.4) g/dL ABG Carboxyhemoglobin 1.9 H (0.5-1.5) % POC ABG HHb (Measured) -0.9 L (0.0-5.0) % ABG Methemoglobin 1.5 (0.0-3.0) % ABG O2 Capacity 12.2 L (16-24) mL/dL Van Test Yes VBG pH (7.32-7.43) VBG pCO2 (40-60) mmHg VBG HCO3 mmol/L VBG Total CO2 (22-28) mmol/L VBG O2 Sat (Calc) (40-65) % VBG Base Excess (0.0-2.0) mmol/L VBG Potassium (3.6-5.2) mmol/L A-a O2 Difference 190.0 mm/Hg Hgb O2 Saturation 97.5 (95.0-98.0) % Glucose (75-110) mg/dL Lactate (0.7-2.1) mmol/L Vent Mode A/c Mechanical Rate 12 FiO2 60.0 % Tidal Volume 450 Crit Value Called To Crit Value Called By Crit Value Read Back Blood Gas Notified Time Sodium 140 (132-148) mmol/l Potassium 3.7 (3.6-5.0) MMOL/L Chloride 108 H (98-107) mmol/L Carbon Dioxide 22 (22-30) mmol/L Anion Gap 14 (10-20) BUN 36 H (9-20) mg/dl Creatinine 3.3 H (0.8-1.5) mg/dl Est GFR ( Amer) 22 Est GFR (Non-Af Amer) 18 POC Glucose (mg/dL) 140 H (65-110) mg/dL Random Glucose 131 H (75-110) mg/dL Lactic Acid (0.7-2.1) mmol/L Calcium 6.6 L (8.4-10.2) mg/dL Phosphorus 4.1 (2.5-4.5) mg/dl Magnesium 1.7 (1.6-2.3) MG/DL Total Bilirubin 2.3 H (0.2-1.3) mg/dl AST 1335 H (17-59) U/L ALT 587 H D (21-72) U/L Alkaline Phosphatase 70 (38-126) U/L Troponin I (0.00-0.120) ng/mL Total Protein 5.5 L (6.3-8.2) G/DL Albumin 2.4 L (3.5-5.0) g/dL Globulin 3.1 (2.2-3.9) gm/dL Albumin/Globulin Ratio 0.8 L (1.0-2.1) Venous Blood Potassium (3.6-5.2) mmol/L Urine Color (YELLOW) Urine Clarity (Clear) Urine pH (5.0-8.0) Ur Specific [place] (1.003-1.030) Urine Protein (NEGATIVE) mg/dL Urine Glucose (UA) (NEGATIVE) mg/dL Urine Ketones (NEGATIVE) mg/dL Urine Blood (NEGATIVE) Urine Nitrate (NEGATIVE) Urine Bilirubin (NEGATIVE) Urine Urobilinogen (0.2-1.0) mg/dL Ur Leukocyte Esterase (Negative) Cornelio/uL Urine RBC (Auto) (0-3) /hpf Urine Microscopic WBC (0-5) /hpf Ur Squamous Epith Cells (0-5) /hpf Urine Bacteria (<OCC) Ur Random Sodium meq/L Ur Random Potassium mmol/L Stool Occult Blood (NEGATIVE) 07/11/18 07/10/18 07/10/18 Range/Units 04:10 20:44 17:25 WBC 18.2 H (4.8-10.8) K/uL RBC 2.72 L (4.40-5.90) Mil/uL Hgb 8.2 L (12.0-18.0) g/dL Hct 24.3 L (35.0-51.0) % MCV 89.3 (80.0-94.0) fl MCH 30.0 (27.0-31.0) pg MCHC 33.6 (33.0-37.0) g/dL RDW 15.8 H (11.5-14.5) % Plt Count 56 L (130-400) K/uL MPV 8.3 (7.2-11.7) fl Neut % (Auto) 91.2 H (50.0-75.0) % Lymph % (Auto) 4.8 L (20.0-40.0) % [place] % (Auto) 2.5 (0.0-10.0) % Eos % (Auto) 1.1 (0.0-4.0) % Baso % (Auto) 0.4 (0.0-2.0) % Neut # (Auto) 16.6 H (1.8-7.0) K/uL Lymph # (Auto) 0.9 L (1.0-4.3) K/uL [place] # (Auto) 0.5 (0.0-0.8) K/uL Eos # (Auto) 0.2 (0.0-0.7) K/uL Baso # (Auto) 0.1 (0.0-0.2) K/uL Total Counted Cancelled Neutrophils % (Manual) Cancelled (42-75) % Band Neutrophils % Cancelled (0-2) % Lymphocytes % (Manual) Cancelled (20-50) % Reactive Lymphs % Cancelled Monocytes % (Manual) Cancelled (0-10) % Eosinophils % (Manual) Cancelled Basophils % (Manual) Cancelled Metamyelocytes % Cancelled Myelocytes % Cancelled Promyelocytes % Cancelled Blast Cells % Cancelled Plasma Cell % (Manual) Cancelled Nucleated RBC % Cancelled (0-0) % Hypersegmented Polys Cancelled Smudge Cells Cancelled Toxic Granulation Cancelled Dohle Bodies Cancelled Jose Rods Cancelled Platelet Estimate Cancelled (NORMAL) Plt Clumps, EDTA Cancelled Large Platelets Cancelled Giant Platelets Cancelled RBC Morphology Cancelled Polychromasia Cancelled Hypochromasia (manual) Cancelled Poikilocytosis (manual Cancelled Basophilic Stippling Cancelled Anisocytosis (manual) Cancelled Microcytosis (manual) Cancelled Macrocytosis (manual) Cancelled Spherocytes Cancelled Sickle Cells Cancelled Target Cells Cancelled Tear Drop Cells Cancelled Ovalocytes Cancelled Stomatocytes Cancelled Helmet Cells Cancelled [place] Bodies Cancelled Lynch Cells Cancelled Acanthocytes (Spur) Cancelled Rouleaux Cancelled Schistocytes Cancelled pCO2 (35-45) mm/Hg pO2 (30-55) mm/Hg HCO3 (21-28) mmol/L ABG pH (7.35-7.45) ABG Total CO2 (22-28) mmol/L ABG O2 Saturation (95-98) % ABG O2 Content (15-23) ML/dL ABG Base Excess (-2.0-3.0) mmol/L ABG Hemoglobin (11.7-17.4) g/dL ABG Carboxyhemoglobin (0.5-1.5) % POC ABG HHb (Measured) (0.0-5.0) % ABG Methemoglobin (0.0-3.0) % ABG O2 Capacity (16-24) mL/dL Van Test VBG pH (7.32-7.43) VBG pCO2 (40-60) mmHg VBG HCO3 mmol/L VBG Total CO2 (22-28) mmol/L VBG O2 Sat (Calc) (40-65) % VBG Base Excess (0.0-2.0) mmol/L VBG Potassium (3.6-5.2) mmol/L A-a O2 Difference mm/Hg Hgb O2 Saturation (95.0-98.0) % Glucose (75-110) mg/dL Lactate (0.7-2.1) mmol/L Vent Mode Mechanical Rate FiO2 % Tidal Volume Crit Value Called To Crit Value Called By Crit Value Read Back Blood Gas Notified Time Sodium (132-148) mmol/l Potassium (3.6-5.0) MMOL/L Chloride (98-107) mmol/L Carbon Dioxide (22-30) mmol/L Anion Gap (10-20) BUN (9-20) mg/dl Creatinine (0.8-1.5) mg/dl Est GFR ( Amer) Est GFR (Non-Af Amer) POC Glucose (mg/dL) 152 H (65-110) mg/dL Random Glucose (75-110) mg/dL Lactic Acid (0.7-2.1) mmol/L Calcium (8.4-10.2) mg/dL Phosphorus (2.5-4.5) mg/dl Magnesium (1.6-2.3) MG/DL Total Bilirubin (0.2-1.3) mg/dl AST (17-59) U/L ALT (21-72) U/L Alkaline Phosphatase (38-126) U/L Troponin I (0.00-0.120) ng/mL Total Protein (6.3-8.2) G/DL Albumin (3.5-5.0) g/dL Globulin (2.2-3.9) gm/dL Albumin/Globulin Ratio (1.0-2.1) Venous Blood Potassium (3.6-5.2) mmol/L Urine Color (YELLOW) Urine Clarity (Clear) Urine pH (5.0-8.0) Ur Specific [place] (1.003-1.030) Urine Protein (NEGATIVE) mg/dL Urine Glucose (UA) (NEGATIVE) mg/dL Urine Ketones (NEGATIVE) mg/dL Urine Blood (NEGATIVE) Urine Nitrate (NEGATIVE) Urine Bilirubin (NEGATIVE) Urine Urobilinogen (0.2-1.0) mg/dL Ur Leukocyte Esterase (Negative) Cornelio/uL Urine RBC (Auto) (0-3) /hpf Urine Microscopic WBC (0-5) /hpf Ur Squamous Epith Cells (0-5) /hpf Urine Bacteria (<OCC) Ur Random Sodium 138 meq/L Ur Random Potassium 45.4 mmol/L Stool Occult Blood (NEGATIVE) 07/10/18 07/10/18 07/10/18 Range/Units 17:25 17:25 16:17 WBC 18.8 H (4.8-10.8) K/uL RBC 2.80 L (4.40-5.90) Mil/uL Hgb 8.3 L (12.0-18.0) g/dL Hct 25.1 L (35.0-51.0) % MCV 89.6 (80.0-94.0) fl MCH 29.7 (27.0-31.0) pg MCHC 33.1 (33.0-37.0) g/dL RDW 15.9 H (11.5-14.5) % Plt Count 70 L D (130-400) K/uL MPV (7.2-11.7) fl Neut % (Auto) (50.0-75.0) % Lymph % (Auto) (20.0-40.0) % [place] % (Auto) (0.0-10.0) % Eos % (Auto) (0.0-4.0) % Baso % (Auto) (0.0-2.0) % Neut # (Auto) (1.8-7.0) K/uL Lymph # (Auto) (1.0-4.3) K/uL [place] # (Auto) (0.0-0.8) K/uL Eos # (Auto) (0.0-0.7) K/uL Baso # (Auto) (0.0-0.2) K/uL Total Counted Neutrophils % (Manual) (42-75) % Band Neutrophils % (0-2) % Lymphocytes % (Manual) (20-50) % Reactive Lymphs % Monocytes % (Manual) (0-10) % Eosinophils % (Manual) Basophils % (Manual) Metamyelocytes % Myelocytes % Promyelocytes % Blast Cells % Plasma Cell % (Manual) Nucleated RBC % (0-0) % Hypersegmented Polys Smudge Cells Toxic Granulation Dohle Bodies Jose Rods Platelet Estimate (NORMAL) Plt Clumps, EDTA Large Platelets Giant Platelets RBC Morphology Polychromasia Hypochromasia (manual) Poikilocytosis (manual Basophilic Stippling Anisocytosis (manual) Microcytosis (manual) Macrocytosis (manual) Spherocytes Sickle Cells Target Cells Tear Drop Cells Ovalocytes Stomatocytes Helmet Cells [place] Bodies Sindi Cells Acanthocytes (Spur) Rouleaux Schistocytes pCO2 (35-45) mm/Hg pO2 (30-55) mm/Hg HCO3 (21-28) mmol/L ABG pH (7.35-7.45) ABG Total CO2 (22-28) mmol/L ABG O2 Saturation (95-98) % ABG O2 Content (15-23) ML/dL ABG Base Excess (-2.0-3.0) mmol/L ABG Hemoglobin (11.7-17.4) g/dL ABG Carboxyhemoglobin (0.5-1.5) % POC ABG HHb (Measured) (0.0-5.0) % ABG Methemoglobin (0.0-3.0) % ABG O2 Capacity (16-24) mL/dL Van Test VBG pH (7.32-7.43) VBG pCO2 (40-60) mmHg VBG HCO3 mmol/L VBG Total CO2 (22-28) mmol/L VBG O2 Sat (Calc) (40-65) % VBG Base Excess (0.0-2.0) mmol/L VBG Potassium (3.6-5.2) mmol/L A-a O2 Difference mm/Hg Hgb O2 Saturation (95.0-98.0) % Glucose (75-110) mg/dL Lactate (0.7-2.1) mmol/L Vent Mode Mechanical Rate FiO2 % Tidal Volume Crit Value Called To Crit Value Called By Crit Value Read Back Blood Gas Notified Time Sodium (132-148) mmol/l Potassium (3.6-5.0) MMOL/L Chloride (98-107) mmol/L Carbon Dioxide (22-30) mmol/L Anion Gap (10-20) BUN (9-20) mg/dl Creatinine (0.8-1.5) mg/dl Est GFR ( Amer) Est GFR (Non-Af Amer) POC Glucose (mg/dL) 172 H (65-110) mg/dL Random Glucose (75-110) mg/dL Lactic Acid 3.0 H (0.7-2.1) mmol/L Calcium (8.4-10.2) mg/dL Phosphorus (2.5-4.5) mg/dl Magnesium (1.6-2.3) MG/DL Total Bilirubin (0.2-1.3) mg/dl AST (17-59) U/L ALT (21-72) U/L Alkaline Phosphatase (38-126) U/L Troponin I (0.00-0.120) ng/mL Total Protein (6.3-8.2) G/DL Albumin (3.5-5.0) g/dL Globulin (2.2-3.9) gm/dL Albumin/Globulin Ratio (1.0-2.1) Venous Blood Potassium (3.6-5.2) mmol/L Urine Color (YELLOW) Urine Clarity (Clear) Urine pH (5.0-8.0) Ur Specific [place] (1.003-1.030) Urine Protein (NEGATIVE) mg/dL Urine Glucose (UA) (NEGATIVE) mg/dL Urine Ketones (NEGATIVE) mg/dL Urine Blood (NEGATIVE) Urine Nitrate (NEGATIVE) Urine Bilirubin (NEGATIVE) Urine Urobilinogen (0.2-1.0) mg/dL Ur Leukocyte Esterase (Negative) Cornelio/uL Urine RBC (Auto) (0-3) /hpf Urine Microscopic WBC (0-5) /hpf Ur Squamous Epith Cells (0-5) /hpf Urine Bacteria (<OCC) Ur Random Sodium meq/L Ur Random Potassium mmol/L Stool Occult Blood (NEGATIVE) 07/10/18 07/10/18 07/10/18 Range/Units 15:34 15:00 13:05 WBC (4.8-10.8) K/uL RBC (4.40-5.90) Mil/uL Hgb (12.0-18.0) g/dL Hct (35.0-51.0) % MCV (80.0-94.0) fl MCH (27.0-31.0) pg MCHC (33.0-37.0) g/dL RDW (11.5-14.5) % Plt Count (130-400) K/uL MPV (7.2-11.7) fl Neut % (Auto) (50.0-75.0) % Lymph % (Auto) (20.0-40.0) % [place] % (Auto) (0.0-10.0) % Eos % (Auto) (0.0-4.0) % Baso % (Auto) (0.0-2.0) % Neut # (Auto) (1.8-7.0) K/uL Lymph # (Auto) (1.0-4.3) K/uL [place] # (Auto) (0.0-0.8) K/uL Eos # (Auto) (0.0-0.7) K/uL Baso # (Auto) (0.0-0.2) K/uL Total Counted Neutrophils % (Manual) (42-75) % Band Neutrophils % (0-2) % Lymphocytes % (Manual) (20-50) % Reactive Lymphs % Monocytes % (Manual) (0-10) % Eosinophils % (Manual) Basophils % (Manual) Metamyelocytes % Myelocytes % Promyelocytes % Blast Cells % Plasma Cell % (Manual) Nucleated RBC % (0-0) % Hypersegmented Polys Smudge Cells Toxic Granulation Dohle Bodies Jose Rods Platelet Estimate (NORMAL) Plt Clumps, EDTA Large Platelets Giant Platelets RBC Morphology Polychromasia Hypochromasia (manual) Poikilocytosis (manual Basophilic Stippling Anisocytosis (manual) Microcytosis (manual) Macrocytosis (manual) Spherocytes Sickle Cells Target Cells Tear Drop Cells Ovalocytes Stomatocytes Helmet Cells [place] Bodies Sindi Cells Acanthocytes (Spur) Rouleaux Schistocytes pCO2 (35-45) mm/Hg pO2 33 (30-55) mm/Hg HCO3 (21-28) mmol/L ABG pH (7.35-7.45) ABG Total CO2 (22-28) mmol/L ABG O2 Saturation (95-98) % ABG O2 Content (15-23) ML/dL ABG Base Excess (-2.0-3.0) mmol/L ABG Hemoglobin (11.7-17.4) g/dL ABG Carboxyhemoglobin (0.5-1.5) % POC ABG HHb (Measured) (0.0-5.0) % ABG Methemoglobin (0.0-3.0) % ABG O2 Capacity (16-24) mL/dL Van Test VBG pH 7.40 (7.32-7.43) VBG pCO2 33 L (40-60) mmHg VBG HCO3 21.2 mmol/L VBG Total CO2 21.4 L (22-28) mmol/L VBG O2 Sat (Calc) 73.7 H (40-65) % VBG Base Excess -3.6 L (0.0-2.0) mmol/L VBG Potassium 3.3 L (3.6-5.2) mmol/L A-a O2 Difference mm/Hg Hgb O2 Saturation (95.0-98.0) % Glucose 232 H (75-110) mg/dL Lactate 5.7 H* (0.7-2.1) mmol/L Vent Mode Mechanical Rate FiO2 50.0 % Tidal Volume Crit Value Called To rIma dawn Crit Value Called By 23 Crit Value Read Back Y Blood Gas Notified Time 1315 Sodium 140.0 (132-148) mmol/l Potassium (3.6-5.0) MMOL/L Chloride 107.0 (98-107) mmol/L Carbon Dioxide (22-30) mmol/L Anion Gap (10-20) BUN (9-20) mg/dl Creatinine (0.8-1.5) mg/dl Est GFR ( Amer) Est GFR (Non-Af Amer) POC Glucose (mg/dL) (65-110) mg/dL Random Glucose (75-110) mg/dL Lactic Acid (0.7-2.1) mmol/L Calcium (8.4-10.2) mg/dL Phosphorus (2.5-4.5) mg/dl Magnesium (1.6-2.3) MG/DL Total Bilirubin (0.2-1.3) mg/dl AST (17-59) U/L ALT (21-72) U/L Alkaline Phosphatase (38-126) U/L Troponin I (0.00-0.120) ng/mL Total Protein (6.3-8.2) G/DL Albumin (3.5-5.0) g/dL Globulin (2.2-3.9) gm/dL Albumin/Globulin Ratio (1.0-2.1) Venous Blood Potassium 3.3 L (3.6-5.2) mmol/L Urine Color Yellow (YELLOW) Urine Clarity Turbid (Clear) Urine pH 6.0 (5.0-8.0) Ur Specific [place] 1.018 (1.003-1.030) Urine Protein >=500 (NEGATIVE) mg/dL Urine Glucose (UA) 50 (NEGATIVE) mg/dL Urine Ketones Negative (NEGATIVE) mg/dL Urine Blood Large (NEGATIVE) Urine Nitrate Negative (NEGATIVE) Urine Bilirubin Negative (NEGATIVE) Urine Urobilinogen 0.2-1.0 (0.2-1.0) mg/dL Ur Leukocyte Esterase Large (Negative) Cornelio/uL Urine RBC (Auto) 274 H (0-3) /hpf Urine Microscopic WBC 316 H (0-5) /hpf Ur Squamous Epith Cells 3 (0-5) /hpf Urine Bacteria Occ H (<OCC) Ur Random Sodium meq/L Ur Random Potassium mmol/L Stool Occult Blood Positive H (NEGATIVE) 07/10/18 07/10/18 07/10/18 Range/Units 11:03 10:45 09:45 WBC (4.8-10.8) K/uL RBC (4.40-5.90) Mil/uL Hgb (12.0-18.0) g/dL Hct (35.0-51.0) % MCV (80.0-94.0) fl MCH (27.0-31.0) pg MCHC (33.0-37.0) g/dL RDW (11.5-14.5) % Plt Count (130-400) K/uL MPV (7.2-11.7) fl Neut % (Auto) (50.0-75.0) % Lymph % (Auto) (20.0-40.0) % [place] % (Auto) (0.0-10.0) % Eos % (Auto) (0.0-4.0) % Baso % (Auto) (0.0-2.0) % Neut # (Auto) (1.8-7.0) K/uL Lymph # (Auto) (1.0-4.3) K/uL [place] # (Auto) (0.0-0.8) K/uL Eos # (Auto) (0.0-0.7) K/uL Baso # (Auto) (0.0-0.2) K/uL Total Counted Neutrophils % (Manual) (42-75) % Band Neutrophils % (0-2) % Lymphocytes % (Manual) (20-50) % Reactive Lymphs % Monocytes % (Manual) (0-10) % Eosinophils % (Manual) Basophils % (Manual) Metamyelocytes % Myelocytes % Promyelocytes % Blast Cells % Plasma Cell % (Manual) Nucleated RBC % (0-0) % Hypersegmented Polys Smudge Cells Toxic Granulation Dohle Bodies Jose Rods Platelet Estimate (NORMAL) Plt Clumps, EDTA Large Platelets Giant Platelets RBC Morphology Polychromasia Hypochromasia (manual) Poikilocytosis (manual Basophilic Stippling Anisocytosis (manual) Microcytosis (manual) Macrocytosis (manual) Spherocytes Sickle Cells Target Cells Tear Drop Cells Ovalocytes Stomatocytes Helmet Cells [place] Bodies Sindi Cells Acanthocytes (Spur) Rouleaux Schistocytes pCO2 (35-45) mm/Hg pO2 (30-55) mm/Hg HCO3 (21-28) mmol/L ABG pH (7.35-7.45) ABG Total CO2 (22-28) mmol/L ABG O2 Saturation (95-98) % ABG O2 Content (15-23) ML/dL ABG Base Excess (-2.0-3.0) mmol/L ABG Hemoglobin (11.7-17.4) g/dL ABG Carboxyhemoglobin (0.5-1.5) % POC ABG HHb (Measured) (0.0-5.0) % ABG Methemoglobin (0.0-3.0) % ABG O2 Capacity (16-24) mL/dL Van Test VBG pH (7.32-7.43) VBG pCO2 (40-60) mmHg VBG HCO3 mmol/L VBG Total CO2 (22-28) mmol/L VBG O2 Sat (Calc) (40-65) % VBG Base Excess (0.0-2.0) mmol/L VBG Potassium (3.6-5.2) mmol/L A-a O2 Difference mm/Hg Hgb O2 Saturation (95.0-98.0) % Glucose (75-110) mg/dL Lactate (0.7-2.1) mmol/L Vent Mode Mechanical Rate FiO2 % Tidal Volume Crit Value Called To Crit Value Called By Crit Value Read Back Blood Gas Notified Time Sodium (132-148) mmol/l Potassium (3.6-5.0) MMOL/L Chloride (98-107) mmol/L Carbon Dioxide (22-30) mmol/L Anion Gap (10-20) BUN (9-20) mg/dl Creatinine (0.8-1.5) mg/dl Est GFR ( Amer) Est GFR (Non-Af Amer) POC Glucose (mg/dL) 209 H (65-110) mg/dL Random Glucose (75-110) mg/dL Lactic Acid 7.6 H* (0.7-2.1) mmol/L Calcium (8.4-10.2) mg/dL Phosphorus (2.5-4.5) mg/dl Magnesium (1.6-2.3) MG/DL Total Bilirubin (0.2-1.3) mg/dl AST (17-59) U/L ALT (21-72) U/L Alkaline Phosphatase (38-126) U/L Troponin I 1.4400 H* (0.00-0.120) ng/mL Total Protein (6.3-8.2) G/DL Albumin (3.5-5.0) g/dL Globulin (2.2-3.9) gm/dL Albumin/Globulin Ratio (1.0-2.1) Venous Blood Potassium (3.6-5.2) mmol/L Urine Color (YELLOW) Urine Clarity (Clear) Urine pH (5.0-8.0) Ur Specific [place] (1.003-1.030) Urine Protein (NEGATIVE) mg/dL Urine Glucose (UA) (NEGATIVE) mg/dL Urine Ketones (NEGATIVE) mg/dL Urine Blood (NEGATIVE) Urine Nitrate (NEGATIVE) Urine Bilirubin (NEGATIVE) Urine Urobilinogen (0.2-1.0) mg/dL Ur Leukocyte Esterase (Negative) Cornelio/uL Urine RBC (Auto) (0-3) /hpf Urine Microscopic WBC (0-5) /hpf Ur Squamous Epith Cells (0-5) /hpf Urine Bacteria (<OCC) Ur Random Sodium meq/L Ur Random Potassium mmol/L Stool Occult Blood (NEGATIVE) 07/10/18 07/10/18 Range/Units 09:45 09:45 WBC 23.6 H (4.8-10.8) K/uL RBC 3.34 L (4.40-5.90) Mil/uL Hgb 10.0 L D (12.0-18.0) g/dL Hct 30.1 L (35.0-51.0) % MCV 90.1 (80.0-94.0) fl MCH 29.9 (27.0-31.0) pg MCHC 33.2 (33.0-37.0) g/dL RDW 15.7 H (11.5-14.5) % Plt Count 90 L D (130-400) K/uL MPV 7.8 (7.2-11.7) fl Neut % (Auto) 91.7 H (50.0-75.0) % Lymph % (Auto) 5.4 L (20.0-40.0) % [place]ett % (Auto) 2.3 (0.0-10.0) % Eos % (Auto) 0.5 (0.0-4.0) % Baso % (Auto) 0.1 (0.0-2.0) % Neut # (Auto) 21.6 H (1.8-7.0) K/uL Lymph # (Auto) 1.3 (1.0-4.3) K/uL [place] # (Auto) 0.5 (0.0-0.8) K/uL Eos # (Auto) 0.1 (0.0-0.7) K/uL Baso # (Auto) 0.0 (0.0-0.2) K/uL Total Counted Neutrophils % (Manual) 70 (42-75) % Band Neutrophils % 18 H* (0-2) % Lymphocytes % (Manual) 6 L (20-50) % Reactive Lymphs % Monocytes % (Manual) 6 (0-10) % Eosinophils % (Manual) Basophils % (Manual) Metamyelocytes % Myelocytes % Promyelocytes % Blast Cells % Plasma Cell % (Manual) Nucleated RBC % 4 H (0-0) % Hypersegmented Polys Smudge Cells Toxic Granulation Dohle Bodies Jose Rods Platelet Estimate Decreased L (NORMAL) Plt Clumps, EDTA Large Platelets Present Giant Platelets Present RBC Morphology Polychromasia Slight Hypochromasia (manual) Poikilocytosis (manual Slight Basophilic Stippling Anisocytosis (manual) Slight Microcytosis (manual) Macrocytosis (manual) Spherocytes Slight Sickle Cells Target Cells Tear Drop Cells Ovalocytes Slight Stomatocytes Helmet Cells [place] Bodies Lynch Cells Slight Acanthocytes (Spur) Rouleaux Schistocytes pCO2 (35-45) mm/Hg pO2 (30-55) mm/Hg HCO3 (21-28) mmol/L ABG pH (7.35-7.45) ABG Total CO2 (22-28) mmol/L ABG O2 Saturation (95-98) % ABG O2 Content (15-23) ML/dL ABG Base Excess (-2.0-3.0) mmol/L ABG Hemoglobin (11.7-17.4) g/dL ABG Carboxyhemoglobin (0.5-1.5) % POC ABG HHb (Measured) (0.0-5.0) % ABG Methemoglobin (0.0-3.0) % ABG O2 Capacity (16-24) mL/dL Van Test VBG pH (7.32-7.43) VBG pCO2 (40-60) mmHg VBG HCO3 mmol/L VBG Total CO2 (22-28) mmol/L VBG O2 Sat (Calc) (40-65) % VBG Base Excess (0.0-2.0) mmol/L VBG Potassium (3.6-5.2) mmol/L A-a O2 Difference mm/Hg Hgb O2 Saturation (95.0-98.0) % Glucose (75-110) mg/dL Lactate (0.7-2.1) mmol/L Vent Mode Mechanical Rate FiO2 % Tidal Volume Crit Value Called To Crit Value Called By Crit Value Read Back Blood Gas Notified Time Sodium 139 (132-148) mmol/l Potassium 4.1 (3.6-5.0) MMOL/L Chloride 105 (98-107) mmol/L Carbon Dioxide 17 L (22-30) mmol/L Anion Gap 21 H (10-20) BUN 26 H (9-20) mg/dl Creatinine 2.6 H (0.8-1.5) mg/dl Est GFR ( Amer) 29 Est GFR (Non-Af Amer) 24 POC Glucose (mg/dL) (65-110) mg/dL Random Glucose 196 H (75-110) mg/dL Lactic Acid (0.7-2.1) mmol/L Calcium 6.7 L (8.4-10.2) mg/dL Phosphorus (2.5-4.5) mg/dl Magnesium (1.6-2.3) MG/DL Total Bilirubin (0.2-1.3) mg/dl AST (17-59) U/L ALT (21-72) U/L Alkaline Phosphatase (38-126) U/L Troponin I (0.00-0.120) ng/mL Total Protein (6.3-8.2) G/DL Albumin (3.5-5.0) g/dL Globulin (2.2-3.9) gm/dL Albumin/Globulin Ratio (1.0-2.1) Venous Blood Potassium (3.6-5.2) mmol/L Urine Color (YELLOW) Urine Clarity (Clear) Urine pH (5.0-8.0) Ur Specific [place] (1.003-1.030) Urine Protein (NEGATIVE) mg/dL Urine Glucose (UA) (NEGATIVE) mg/dL Urine Ketones (NEGATIVE) mg/dL Urine Blood (NEGATIVE) Urine Nitrate (NEGATIVE) Urine Bilirubin (NEGATIVE) Urine Urobilinogen (0.2-1.0) mg/dL Ur Leukocyte Esterase (Negative) Cornelio/uL Urine RBC (Auto) (0-3) /hpf Urine Microscopic WBC (0-5) /hpf Ur Squamous Epith Cells (0-5) /hpf Urine Bacteria (<OCC) Ur Random Sodium meq/L Ur Random Potassium mmol/L Stool Occult Blood (NEGATIVE) Laboratory Results - last 24 hr 07/10/18 07/10/18 07/10/18 09:45 09:45 09:45 WBC 23.6 H RBC 3.34 L Hgb 10.0 L D Hct 30.1 L MCV 90.1 MCH 29.9 MCHC 33.2 RDW 15.7 H Plt Count 90 L D MPV 7.8 Neut % (Auto) 91.7 H Lymph % (Auto) 5.4 L [place] % (Auto) 2.3 Eos % (Auto) 0.5 Baso % (Auto) 0.1 Neut # (Auto) 21.6 H Lymph # (Auto) 1.3 [place] # (Auto) 0.5 Eos # (Auto) 0.1 Baso # (Auto) 0.0 Total Counted Neutrophils % (Manual) 70 Band Neutrophils % 18 H* Lymphocytes % (Manual) 6 L Reactive Lymphs % Monocytes % (Manual) 6 Eosinophils % (Manual) Basophils % (Manual) Metamyelocytes % Myelocytes % Promyelocytes % Blast Cells % Plasma Cell % (Manual) Nucleated RBC % 4 H Hypersegmented Polys Smudge Cells Toxic Granulation Dohle Bodies Jose Rods Platelet Estimate Decreased L Plt Clumps, EDTA Large Platelets Present Giant Platelets Present RBC Morphology Polychromasia Slight Hypochromasia (manual) Poikilocytosis (manual Slight Basophilic Stippling Anisocytosis (manual) Slight Microcytosis (manual) Macrocytosis (manual) Spherocytes Slight Sickle Cells Target Cells Tear Drop Cells Ovalocytes Slight Stomatocytes Helmet Cells [place] Bodies Sindi Cells Slight Acanthocytes (Spur) Rouleaux Schistocytes pCO2 pO2 HCO3 ABG pH ABG Total CO2 ABG O2 Saturation ABG O2 Content ABG Base Excess ABG Hemoglobin ABG Carboxyhemoglobin POC ABG HHb (Measured) ABG Methemoglobin ABG O2 Capacity Van Test VBG pH VBG pCO2 VBG HCO3 VBG Total CO2 VBG O2 Sat (Calc) VBG Base Excess VBG Potassium A-a O2 Difference Hgb O2 Saturation Glucose Lactate Vent Mode Mechanical Rate FiO2 Tidal Volume Crit Value Called To Crit Value Called By Crit Value Read Back Blood Gas Notified Time Sodium 139 Potassium 4.1 Chloride 105 Carbon Dioxide 17 L Anion Gap 21 H BUN 26 H Creatinine 2.6 H Est GFR ( Amer) 29 Est GFR (Non-Af Amer) 24 POC Glucose (mg/dL) Random Glucose 196 H Lactic Acid 7.6 H* Calcium 6.7 L Phosphorus Magnesium Total Bilirubin AST ALT Alkaline Phosphatase Troponin I Total Protein Albumin Globulin Albumin/Globulin Ratio Venous Blood Potassium Urine Color Urine Clarity Urine pH Ur Specific [place] Urine Protein Urine Glucose (UA) Urine Ketones Urine Blood Urine Nitrate Urine Bilirubin Urine Urobilinogen Ur Leukocyte Esterase Urine RBC (Auto) Urine Microscopic WBC Ur Squamous Epith Cells Urine Bacteria Ur Random Sodium Ur Random Potassium Stool Occult Blood 07/10/18 07/10/18 07/10/18 10:45 11:03 13:05 WBC RBC Hgb Hct MCV MCH MCHC RDW Plt Count MPV Neut % (Auto) Lymph % (Auto) [place] % (Auto) Eos % (Auto) Baso % (Auto) Neut # (Auto) Lymph # (Auto) [place] # (Auto) Eos # (Auto) Baso # (Auto) Total Counted Neutrophils % (Manual) Band Neutrophils % Lymphocytes % (Manual) Reactive Lymphs % Monocytes % (Manual) Eosinophils % (Manual) Basophils % (Manual) Metamyelocytes % Myelocytes % Promyelocytes % Blast Cells % Plasma Cell % (Manual) Nucleated RBC % Hypersegmented Polys Smudge Cells Toxic Granulation Dohle Bodies Jose Rods Platelet Estimate Plt Clumps, EDTA Large Platelets Giant Platelets RBC Morphology Polychromasia Hypochromasia (manual) Poikilocytosis (manual Basophilic Stippling Anisocytosis (manual) Microcytosis (manual) Macrocytosis (manual) Spherocytes Sickle Cells Target Cells Tear Drop Cells Ovalocytes Stomatocytes Helmet Cells [place] Bodies Lynch Cells Acanthocytes (Spur) Rouleaux Schistocytes pCO2 pO2 33 HCO3 ABG pH ABG Total CO2 ABG O2 Saturation ABG O2 Content ABG Base Excess ABG Hemoglobin ABG Carboxyhemoglobin POC ABG HHb (Measured) ABG Methemoglobin ABG O2 Capacity Van Test VBG pH 7.40 VBG pCO2 33 L VBG HCO3 21.2 VBG Total CO2 21.4 L VBG O2 Sat (Calc) 73.7 H VBG Base Excess -3.6 L VBG Potassium 3.3 L A-a O2 Difference Hgb O2 Saturation Glucose 232 H Lactate 5.7 H* Vent Mode Mechanical Rate FiO2 50.0 Tidal Volume Crit Value Called To Irma dawn Crit Value Called By 23 Crit Value Read Back Y Blood Gas Notified Time 1315 Sodium 140.0 Potassium Chloride 107.0 Carbon Dioxide Anion Gap BUN Creatinine Est GFR ( Amer) Est GFR (Non-Af Amer) POC Glucose (mg/dL) 209 H Random Glucose Lactic Acid Calcium Phosphorus Magnesium Total Bilirubin AST ALT Alkaline Phosphatase Troponin I 1.4400 H* Total Protein Albumin Globulin Albumin/Globulin Ratio Venous Blood Potassium 3.3 L Urine Color Urine Clarity Urine pH Ur Specific [place] Urine Protein Urine Glucose (UA) Urine Ketones Urine Blood Urine Nitrate Urine Bilirubin Urine Urobilinogen Ur Leukocyte Esterase Urine RBC (Auto) Urine Microscopic WBC Ur Squamous Epith Cells Urine Bacteria Ur Random Sodium Ur Random Potassium Stool Occult Blood 07/10/18 07/10/18 07/10/18 15:00 15:34 16:17 WBC RBC Hgb Hct MCV MCH MCHC RDW Plt Count MPV Neut % (Auto) Lymph % (Auto) [place] % (Auto) Eos % (Auto) Baso % (Auto) Neut # (Auto) Lymph # (Auto) [place] # (Auto) Eos # (Auto) Baso # (Auto) Total Counted Neutrophils % (Manual) Band Neutrophils % Lymphocytes % (Manual) Reactive Lymphs % Monocytes % (Manual) Eosinophils % (Manual) Basophils % (Manual) Metamyelocytes % Myelocytes % Promyelocytes % Blast Cells % Plasma Cell % (Manual) Nucleated RBC % Hypersegmented Polys Smudge Cells Toxic Granulation Dohle Bodies Jose Rods Platelet Estimate Plt Clumps, EDTA Large Platelets Giant Platelets RBC Morphology Polychromasia Hypochromasia (manual) Poikilocytosis (manual Basophilic Stippling Anisocytosis (manual) Microcytosis (manual) Macrocytosis (manual) Spherocytes Sickle Cells Target Cells Tear Drop Cells Ovalocytes Stomatocytes Helmet Cells [place] Bodies Lynch Cells Acanthocytes (Spur) Rouleaux Schistocytes pCO2 pO2 HCO3 ABG pH ABG Total CO2 ABG O2 Saturation ABG O2 Content ABG Base Excess ABG Hemoglobin ABG Carboxyhemoglobin POC ABG HHb (Measured) ABG Methemoglobin ABG O2 Capacity Van Test VBG pH VBG pCO2 VBG HCO3 VBG Total CO2 VBG O2 Sat (Calc) VBG Base Excess VBG Potassium A-a O2 Difference Hgb O2 Saturation Glucose Lactate Vent Mode Mechanical Rate FiO2 Tidal Volume Crit Value Called To Crit Value Called By Crit Value Read Back Blood Gas Notified Time Sodium Potassium Chloride Carbon Dioxide Anion Gap BUN Creatinine Est GFR ( Amer) Est GFR (Non-Af Amer) POC Glucose (mg/dL) 172 H Random Glucose Lactic Acid Calcium Phosphorus Magnesium Total Bilirubin AST ALT Alkaline Phosphatase Troponin I Total Protein Albumin Globulin Albumin/Globulin Ratio Venous Blood Potassium Urine Color Yellow Urine Clarity Turbid Urine pH 6.0 Ur Specific [place] 1.018 Urine Protein >=500 Urine Glucose (UA) 50 Urine Ketones Negative Urine Blood Large Urine Nitrate Negative Urine Bilirubin Negative Urine Urobilinogen 0.2-1.0 Ur Leukocyte Esterase Large Urine RBC (Auto) 274 H Urine Microscopic WBC 316 H Ur Squamous Epith Cells 3 Urine Bacteria Occ H Ur Random Sodium Ur Random Potassium Stool Occult Blood Positive H 07/10/18 07/10/18 07/10/18 17:25 17:25 17:25 WBC 18.8 H RBC 2.80 L Hgb 8.3 L Hct 25.1 L MCV 89.6 MCH 29.7 MCHC 33.1 RDW 15.9 H Plt Count 70 L D MPV Neut % (Auto) Lymph % (Auto) [place] % (Auto) Eos % (Auto) Baso % (Auto) Neut # (Auto) Lymph # (Auto) [place] # (Auto) Eos # (Auto) Baso # (Auto) Total Counted Neutrophils % (Manual) Band Neutrophils % Lymphocytes % (Manual) Reactive Lymphs % Monocytes % (Manual) Eosinophils % (Manual) Basophils % (Manual) Metamyelocytes % Myelocytes % Promyelocytes % Blast Cells % Plasma Cell % (Manual) Nucleated RBC % Hypersegmented Polys Smudge Cells Toxic Granulation Dohle Bodies Jose Rods Platelet Estimate Plt Clumps, EDTA Large Platelets Giant Platelets RBC Morphology Polychromasia Hypochromasia (manual) Poikilocytosis (manual Basophilic Stippling Anisocytosis (manual) Microcytosis (manual) Macrocytosis (manual) Spherocytes Sickle Cells Target Cells Tear Drop Cells Ovalocytes Stomatocytes Helmet Cells [place] Bodies Lynch Cells Acanthocytes (Spur) Rouleaux Schistocytes pCO2 pO2 HCO3 ABG pH ABG Total CO2 ABG O2 Saturation ABG O2 Content ABG Base Excess ABG Hemoglobin ABG Carboxyhemoglobin POC ABG HHb (Measured) ABG Methemoglobin ABG O2 Capacity Van Test VBG pH VBG pCO2 VBG HCO3 VBG Total CO2 VBG O2 Sat (Calc) VBG Base Excess VBG Potassium A-a O2 Difference Hgb O2 Saturation Glucose Lactate Vent Mode Mechanical Rate FiO2 Tidal Volume Crit Value Called To Crit Value Called By Crit Value Read Back Blood Gas Notified Time Sodium Potassium Chloride Carbon Dioxide Anion Gap BUN Creatinine Est GFR ( Amer) Est GFR (Non-Af Amer) POC Glucose (mg/dL) Random Glucose Lactic Acid 3.0 H Calcium Phosphorus Magnesium Total Bilirubin AST ALT Alkaline Phosphatase Troponin I Total Protein Albumin Globulin Albumin/Globulin Ratio Venous Blood Potassium Urine Color Urine Clarity Urine pH Ur Specific [place] Urine Protein Urine Glucose (UA) Urine Ketones Urine Blood Urine Nitrate Urine Bilirubin Urine Urobilinogen Ur Leukocyte Esterase Urine RBC (Auto) Urine Microscopic WBC Ur Squamous Epith Cells Urine Bacteria Ur Random Sodium 138 Ur Random Potassium 45.4 Stool Occult Blood 07/10/18 07/11/18 07/11/18 20:44 04:10 04:10 WBC 18.2 H RBC 2.72 L Hgb 8.2 L Hct 24.3 L MCV 89.3 MCH 30.0 MCHC 33.6 RDW 15.8 H Plt Count 56 L MPV 8.3 Neut % (Auto) 91.2 H Lymph % (Auto) 4.8 L [place] % (Auto) 2.5 Eos % (Auto) 1.1 Baso % (Auto) 0.4 Neut # (Auto) 16.6 H Lymph # (Auto) 0.9 L [place] # (Auto) 0.5 Eos # (Auto) 0.2 Baso # (Auto) 0.1 Total Counted Cancelled Neutrophils % (Manual) Cancelled Band Neutrophils % Cancelled Lymphocytes % (Manual) Cancelled Reactive Lymphs % Cancelled Monocytes % (Manual) Cancelled Eosinophils % (Manual) Cancelled Basophils % (Manual) Cancelled Metamyelocytes % Cancelled Myelocytes % Cancelled Promyelocytes % Cancelled Blast Cells % Cancelled Plasma Cell % (Manual) Cancelled Nucleated RBC % Cancelled Hypersegmented Polys Cancelled Smudge Cells Cancelled Toxic Granulation Cancelled Dohle Bodies Cancelled Jose Rods Cancelled Platelet Estimate Cancelled Plt Clumps, EDTA Cancelled Large Platelets Cancelled Giant Platelets Cancelled RBC Morphology Cancelled Polychromasia Cancelled Hypochromasia (manual) Cancelled Poikilocytosis (manual Cancelled Basophilic Stippling Cancelled Anisocytosis (manual) Cancelled Microcytosis (manual) Cancelled Macrocytosis (manual) Cancelled Spherocytes Cancelled Sickle Cells Cancelled Target Cells Cancelled Tear Drop Cells Cancelled Ovalocytes Cancelled Stomatocytes Cancelled Helmet Cells Cancelled [place] Bodies Cancelled Sindi Cells Cancelled Acanthocytes (Spur) Cancelled Rouleaux Cancelled Schistocytes Cancelled pCO2 pO2 HCO3 ABG pH ABG Total CO2 ABG O2 Saturation ABG O2 Content ABG Base Excess ABG Hemoglobin ABG Carboxyhemoglobin POC ABG HHb (Measured) ABG Methemoglobin ABG O2 Capacity Van Test VBG pH VBG pCO2 VBG HCO3 VBG Total CO2 VBG O2 Sat (Calc) VBG Base Excess VBG Potassium A-a O2 Difference Hgb O2 Saturation Glucose Lactate Vent Mode Mechanical Rate FiO2 Tidal Volume Crit Value Called To Crit Value Called By Crit Value Read Back Blood Gas Notified Time Sodium 140 Potassium 3.7 Chloride 108 H Carbon Dioxide 22 Anion Gap 14 BUN 36 H Creatinine 3.3 H Est GFR ( Amer) 22 Est GFR (Non-Af Amer) 18 POC Glucose (mg/dL) 152 H Random Glucose 131 H Lactic Acid Calcium 6.6 L Phosphorus 4.1 Magnesium 1.7 Total Bilirubin 2.3 H AST 1335 H ALT 587 H D Alkaline Phosphatase 70 Troponin I Total Protein 5.5 L Albumin 2.4 L Globulin 3.1 Albumin/Globulin Ratio 0.8 L Venous Blood Potassium Urine Color Urine Clarity Urine pH Ur Specific [place] Urine Protein Urine Glucose (UA) Urine Ketones Urine Blood Urine Nitrate Urine Bilirubin Urine Urobilinogen Ur Leukocyte Esterase Urine RBC (Auto) Urine Microscopic WBC Ur Squamous Epith Cells Urine Bacteria Ur Random Sodium Ur Random Potassium Stool Occult Blood 07/11/18 07/11/18 04:55 06:48 WBC RBC Hgb Hct MCV MCH MCHC RDW Plt Count MPV Neut % (Auto) Lymph % (Auto) [place] % (Auto) Eos % (Auto) Baso % (Auto) Neut # (Auto) Lymph # (Auto) [place] # (Auto) Eos # (Auto) Baso # (Auto) Total Counted Neutrophils % (Manual) Band Neutrophils % Lymphocytes % (Manual) Reactive Lymphs % Monocytes % (Manual) Eosinophils % (Manual) Basophils % (Manual) Metamyelocytes % Myelocytes % Promyelocytes % Blast Cells % Plasma Cell % (Manual) Nucleated RBC % Hypersegmented Polys Smudge Cells Toxic Granulation Dohle Bodies Jose Rods Platelet Estimate Plt Clumps, EDTA Large Platelets Giant Platelets RBC Morphology Polychromasia Hypochromasia (manual) Poikilocytosis (manual Basophilic Stippling Anisocytosis (manual) Microcytosis (manual) Macrocytosis (manual) Spherocytes Sickle Cells Target Cells Tear Drop Cells Ovalocytes Stomatocytes Helmet Cells [place] Bodies Sindi Cells Acanthocytes (Spur) Rouleaux Schistocytes pCO2 28 L pO2 203 H HCO3 22.0 ABG pH 7.45 ABG Total CO2 20.4 L ABG O2 Saturation 100.9 H ABG O2 Content 12.3 L ABG Base Excess -3.8 L ABG Hemoglobin 8.6 L ABG Carboxyhemoglobin 1.9 H POC ABG HHb (Measured) -0.9 L ABG Methemoglobin 1.5 ABG O2 Capacity 12.2 L Van Test Yes VBG pH VBG pCO2 VBG HCO3 VBG Total CO2 VBG O2 Sat (Calc) VBG Base Excess VBG Potassium A-a O2 Difference 190.0 Hgb O2 Saturation 97.5 Glucose Lactate Vent Mode A/c Mechanical Rate 12 FiO2 60.0 Tidal Volume 450 Crit Value Called To Crit Value Called By Crit Value Read Back Blood Gas Notified Time Sodium Potassium Chloride Carbon Dioxide Anion Gap BUN Creatinine Est GFR ( Amer) Est GFR (Non-Af Amer) POC Glucose (mg/dL) 140 H Random Glucose Lactic Acid Calcium Phosphorus Magnesium Total Bilirubin AST ALT Alkaline Phosphatase Troponin I Total Protein Albumin Globulin Albumin/Globulin Ratio Venous Blood Potassium Urine Color Urine Clarity Urine pH Ur Specific [place] Urine Protein Urine Glucose (UA) Urine Ketones Urine Blood Urine Nitrate Urine Bilirubin Urine Urobilinogen Ur Leukocyte Esterase Urine RBC (Auto) Urine Microscopic WBC Ur Squamous Epith Cells Urine Bacteria Ur Random Sodium Ur Random Potassium Stool Occult Blood Radiology Impressions: Radiology Impressions Chest X-Ray 07/10/18 01:17 IMPRESSION: Recently placed endotracheal tube in satisfactory position. The tip is less than 2 cm above the horacio. EKG/Cardiology Studies: Cardiology / EKG Studies 07/11/18 09:00 EKG [ELECTROCARDIOGRAM] DAILY Comment: Mode Of Transportation: Reason For Exam: SVT versus Sinus tachy Fingerstick Blood Sugar Results: 140 Assessment/Plan - Assessment and Plan (Free Text) Assessment: Pt is an 78 y/o male with hx of recent Lap Kylah POD#3, hx of CAD (s/p CABG), CHF w/ reduced EF (25-30%), HTN, DM, CDK stage III, and COPD admitted to ICU s/p cardiac arrest. On Post Op Day #3 pt was noted to be in acute distress, complaining of abdominal pain for which he received analgesics and Haldol. Shortly after, pt was noted to be unresponsive w/o pulse. ACLS protocol was initiated, pt received multiple rounds of Epi and ROSC was achieved. Pt was noted to have hemoglobin of 5 w/ witnessed Melena and received 2 units PRBC and FFP transfusion with repeat Hg 10. Pt is currently comatose GCS3 with multiorgan failure. Active discussions held regarding goals of care with family. #Neuro - GCS 3 - No sedatives - PE exam findings strongly suggestive of anoxic brain injury. - Neurology consulted, Dr. Morgan - Head CT and VEEG pending #Cardiac - Levophed weaned off, BP stable Lactic acid trending down - Actively Afibb w/ RVR. Lopressor 5mg q6 standing as per Cardio and restart oral Lopressor in evening - Hypotension may have been due to acute blood loss vs septic shock.Cardiogenic shock less likely as SVO2>70% - Troponin 1.44. Discussed with Dr. Damle. May be as a result of CPR - Continue monitoring vitals - On Xarelto for afibf but held in light of possible GI bleed #Pulm - Intubated on MV FIO2 40% - ABG stable, metabolic acidosis resolved #Renal - Hx of CKD Stage III now in acute renal failure. Likely Prerenal 2/2 to prolonged hypotensive state - Crea 2.2 >2.6>3.3. BUN 36. Electrolytes stable - low urine output<100cc/24 despite receiving 3L - High dose Lasix challenge 120mg IV. If responds will consider starting ggt - Nephrology consulted. Dr. Castillo. Recommendations appreciated. Metalazone started #GI - S/P Lap choley on 07/07 - Severe transaminitis/shock liver likely from shock state - On exam-- Moderately sized ecchymosis along surgical site raises suspicion of internal bleed from recent operation, though unable to confirm chronicity. Cannot confirm with CT Angio due to renal function - Stool guiac (+) - C/W protonix for ppx - Surgery following case Heme/ID - Hg stable 8.2 - S/P transfusion of 2 units PRBC - Platelets 56 - Coagulaopathy: INR 1.7 s/p 2 units FFP - Afebrile, leukocytosis 18.2. Bandemia 18 on 07/10 suggesting active infection - Bcx pending - Ucx no growth final - ID consulted - C/W Vanco and Merrem Case discussed with Dr. Smith who agrees with plan Patrick Abel PGY2 <Rodolfo Smith - Last Filed: 07/11/18 13:09> CCU Objective - Medications Active Medications: Active Medications Generic Name Dose Route Start Last Admin Trade Name Freq PRN Reason Stop Dose Admin Enoxaparin Sodium 30 mg 07/05/18 09:00 07/08/18 09:10 Lovenox SC 30 mg DAILY ANTONY Administration Protocol Piperacillin Sod/Tazobactam 100 mls @ 100 mls/hr 07/10/18 21:00 07/11/18 08:43 Sod 2.25 gm/ Sodium Chloride IVPB 100 mls/hr Q12 ANTONY Administration Protocol Meropenem 500 mg/ Sodium 100 mls @ 100 mls/hr 07/10/18 13:15 07/11/18 12:20 Chloride IVPB 100 mls/hr Q12H ANTONY Administration Protocol Sodium Chloride 1,000 mls @ 999 mls/hr 07/10/18 15:30 Sodium Chloride 0.9% IV 07/11/18 15:23 .Q1H1M ANTONY Insulin Human Lispro 0 units 07/09/18 07:30 07/11/18 12:19 Humalog SC 1 units ACHS ANTONY Administration Protocol Ipratropium Jasper 0.5 mg 07/10/18 14:00 07/11/18 07:49 Atrovent IH Not Given RQ6 ANTONY Latanoprost 1 drop 07/04/18 22:00 07/10/18 22:13 Xalatan Opht OD 1 drop HS ANTONY Administration Metoprolol Tartrate 150 mg 07/09/18 21:00 07/11/18 06:09 Lopressor PO Not Given Q12@0700,1900 [facility] Metoprolol Tartrate 5 mg 07/11/18 10:00 07/11/18 09:26 Lopressor IVP 5 mg Q6 ANTONY Administration Ondansetron HCl 4 mg 07/04/18 08:08 Zofran Inj IVP Q6 PRN Nausea/Vomiting Pantoprazole Sodium 40 mg 07/12/18 09:00 Protonix Inj IVP DAILY [facility] - Patient Studies Lab Studies: Microbiology Studies 07/10/18 14:35 Urine Culture - Final Urine,Villa No Growth (<1,000 CFU/ML) 07/10/18 14:34 Gram Stain - Final Sputum Induced Lab Studies 07/11/18 07/11/18 07/11/18 Range/Units 11:40 06:48 04:55 WBC (4.8-10.8) K/uL RBC (4.40-5.90) Mil/uL Hgb (12.0-18.0) g/dL Hct (35.0-51.0) % MCV (80.0-94.0) fl MCH (27.0-31.0) pg MCHC (33.0-37.0) g/dL RDW (11.5-14.5) % Plt Count (130-400) K/uL MPV (7.2-11.7) fl Neut % (Auto) (50.0-75.0) % Lymph % (Auto) (20.0-40.0) % [place] % (Auto) (0.0-10.0) % Eos % (Auto) (0.0-4.0) % Baso % (Auto) (0.0-2.0) % Neut # (Auto) (1.8-7.0) K/uL Lymph # (Auto) (1.0-4.3) K/uL [place] # (Auto) (0.0-0.8) K/uL Eos # (Auto) (0.0-0.7) K/uL Baso # (Auto) (0.0-0.2) K/uL Total Counted Neutrophils % (Manual) Band Neutrophils % Lymphocytes % (Manual) Reactive Lymphs % Monocytes % (Manual) Eosinophils % (Manual) Basophils % (Manual) Metamyelocytes % Myelocytes % Promyelocytes % Blast Cells % Plasma Cell % (Manual) Nucleated RBC % Hypersegmented Polys Smudge Cells Toxic Granulation Dohle Bodies Jose Rods Platelet Estimate Plt Clumps, EDTA Large Platelets Giant Platelets RBC Morphology Polychromasia Hypochromasia (manual) Poikilocytosis (manual Basophilic Stippling Anisocytosis (manual) Microcytosis (manual) Macrocytosis (manual) Spherocytes Sickle Cells Target Cells Tear Drop Cells Ovalocytes Stomatocytes Helmet Cells [place] Bodies Sindi Cells Acanthocytes (Spur) Rouleaux Schistocytes pCO2 28 L (35-45) mm/Hg pO2 203 H (30-55) mm/Hg HCO3 22.0 (21-28) mmol/L ABG pH 7.45 (7.35-7.45) ABG Total CO2 20.4 L (22-28) mmol/L ABG O2 Saturation 100.9 H (95-98) % ABG O2 Content 12.3 L (15-23) ML/dL ABG Base Excess -3.8 L (-2.0-3.0) mmol/L ABG Hemoglobin 8.6 L (11.7-17.4) g/dL ABG Carboxyhemoglobin 1.9 H (0.5-1.5) % POC ABG HHb (Measured) -0.9 L (0.0-5.0) % ABG Methemoglobin 1.5 (0.0-3.0) % ABG O2 Capacity 12.2 L (16-24) mL/dL Van Test Yes VBG pH (7.32-7.43) VBG pCO2 (40-60) mmHg VBG HCO3 mmol/L VBG Total CO2 (22-28) mmol/L VBG O2 Sat (Calc) (40-65) % VBG Base Excess (0.0-2.0) mmol/L VBG Potassium (3.6-5.2) mmol/L A-a O2 Difference 190.0 mm/Hg Hgb O2 Saturation 97.5 (95.0-98.0) % Sodium (132-148) mmol/L Chloride (98-107) mmol/L Glucose (75-110) mg/dL Lactate (0.7-2.1) mmol/L Vent Mode A/c Mechanical Rate 12 FiO2 60.0 % Tidal Volume 450 Crit Value Called To Crit Value Called By Crit Value Read Back Blood Gas Notified Time Potassium (3.6-5.0) MMOL/L Carbon Dioxide (22-30) mmol/L Anion Gap (10-20) BUN (9-20) mg/dl Creatinine (0.8-1.5) mg/dl Est GFR ( Amer) Est GFR (Non-Af Amer) POC Glucose (mg/dL) 140 H (65-110) mg/dL Random Glucose (75-110) mg/dL Lactic Acid (0.7-2.1) mmol/L Calcium (8.4-10.2) mg/dL Phosphorus (2.5-4.5) mg/dl Magnesium (1.6-2.3) MG/DL Total Bilirubin (0.2-1.3) mg/dl AST (17-59) U/L ALT (21-72) U/L Alkaline Phosphatase (38-126) U/L Total Protein (6.3-8.2) G/DL Albumin (3.5-5.0) g/dL Globulin (2.2-3.9) gm/dL Albumin/Globulin Ratio (1.0-2.1) Venous Blood Potassium (3.6-5.2) mmol/L Urine Color (YELLOW) Urine Clarity (Clear) Urine pH (5.0-8.0) Ur Specific [place] (1.003-1.030) Urine Protein (NEGATIVE) mg/dL Urine Glucose (UA) (NEGATIVE) mg/dL Urine Ketones (NEGATIVE) mg/dL Urine Blood (NEGATIVE) Urine Nitrate (NEGATIVE) Urine Bilirubin (NEGATIVE) Urine Urobilinogen (0.2-1.0) mg/dL Ur Leukocyte Esterase (Negative) Cornelio/uL Urine RBC (Auto) (0-3) /hpf Urine Microscopic WBC (0-5) /hpf Ur Squamous Epith Cells (0-5) /hpf Urine Bacteria (<OCC) Urine Osmolality 303 (300-1000) mosm/kg Ur Random Creatinine 18.7 mg/dL Ur Random Sodium 113 meq/L Ur Random Potassium mmol/L Stool Occult Blood (NEGATIVE) 07/11/18 07/11/18 07/10/18 Range/Units 04:10 04:10 20:44 WBC 18.2 H (4.8-10.8) K/uL RBC 2.72 L (4.40-5.90) Mil/uL Hgb 8.2 L (12.0-18.0) g/dL Hct 24.3 L (35.0-51.0) % MCV 89.3 (80.0-94.0) fl MCH 30.0 (27.0-31.0) pg MCHC 33.6 (33.0-37.0) g/dL RDW 15.8 H (11.5-14.5) % Plt Count 56 L (130-400) K/uL MPV 8.3 (7.2-11.7) fl Neut % (Auto) 91.2 H (50.0-75.0) % Lymph % (Auto) 4.8 L (20.0-40.0) % [place] % (Auto) 2.5 (0.0-10.0) % Eos % (Auto) 1.1 (0.0-4.0) % Baso % (Auto) 0.4 (0.0-2.0) % Neut # (Auto) 16.6 H (1.8-7.0) K/uL Lymph # (Auto) 0.9 L (1.0-4.3) K/uL [place] # (Auto) 0.5 (0.0-0.8) K/uL Eos # (Auto) 0.2 (0.0-0.7) K/uL Baso # (Auto) 0.1 (0.0-0.2) K/uL Total Counted Cancelled Neutrophils % (Manual) Cancelled Band Neutrophils % Cancelled Lymphocytes % (Manual) Cancelled Reactive Lymphs % Cancelled Monocytes % (Manual) Cancelled Eosinophils % (Manual) Cancelled Basophils % (Manual) Cancelled Metamyelocytes % Cancelled Myelocytes % Cancelled Promyelocytes % Cancelled Blast Cells % Cancelled Plasma Cell % (Manual) Cancelled Nucleated RBC % Cancelled Hypersegmented Polys Cancelled Smudge Cells Cancelled Toxic Granulation Cancelled Dohle Bodies Cancelled Jose Rods Cancelled Platelet Estimate Cancelled Plt Clumps, EDTA Cancelled Large Platelets Cancelled Giant Platelets Cancelled RBC Morphology Cancelled Polychromasia Cancelled Hypochromasia (manual) Cancelled Poikilocytosis (manual Cancelled Basophilic Stippling Cancelled Anisocytosis (manual) Cancelled Microcytosis (manual) Cancelled Macrocytosis (manual) Cancelled Spherocytes Cancelled Sickle Cells Cancelled Target Cells Cancelled Tear Drop Cells Cancelled Ovalocytes Cancelled Stomatocytes Cancelled Helmet Cells Cancelled [place] Bodies Cancelled Lynch Cells Cancelled Acanthocytes (Spur) Cancelled Rouleaux Cancelled Schistocytes Cancelled pCO2 (35-45) mm/Hg pO2 (30-55) mm/Hg HCO3 (21-28) mmol/L ABG pH (7.35-7.45) ABG Total CO2 (22-28) mmol/L ABG O2 Saturation (95-98) % ABG O2 Content (15-23) ML/dL ABG Base Excess (-2.0-3.0) mmol/L ABG Hemoglobin (11.7-17.4) g/dL ABG Carboxyhemoglobin (0.5-1.5) % POC ABG HHb (Measured) (0.0-5.0) % ABG Methemoglobin (0.0-3.0) % ABG O2 Capacity (16-24) mL/dL Van Test VBG pH (7.32-7.43) VBG pCO2 (40-60) mmHg VBG HCO3 mmol/L VBG Total CO2 (22-28) mmol/L VBG O2 Sat (Calc) (40-65) % VBG Base Excess (0.0-2.0) mmol/L VBG Potassium (3.6-5.2) mmol/L A-a O2 Difference mm/Hg Hgb O2 Saturation (95.0-98.0) % Sodium 140 (132-148) mmol/L Chloride 108 H (98-107) mmol/L Glucose (75-110) mg/dL Lactate (0.7-2.1) mmol/L Vent Mode Mechanical Rate FiO2 % Tidal Volume Crit Value Called To Crit Value Called By Crit Value Read Back Blood Gas Notified Time Potassium 3.7 (3.6-5.0) MMOL/L Carbon Dioxide 22 (22-30) mmol/L Anion Gap 14 (10-20) BUN 36 H (9-20) mg/dl Creatinine 3.3 H (0.8-1.5) mg/dl Est GFR ( Amer) 22 Est GFR (Non-Af Amer) 18 POC Glucose (mg/dL) 152 H (65-110) mg/dL Random Glucose 131 H (75-110) mg/dL Lactic Acid (0.7-2.1) mmol/L Calcium 6.6 L (8.4-10.2) mg/dL Phosphorus 4.1 (2.5-4.5) mg/dl Magnesium 1.7 (1.6-2.3) MG/DL Total Bilirubin 2.3 H (0.2-1.3) mg/dl AST 1335 H (17-59) U/L ALT 587 H D (21-72) U/L Alkaline Phosphatase 70 (38-126) U/L Total Protein 5.5 L (6.3-8.2) G/DL Albumin 2.4 L (3.5-5.0) g/dL Globulin 3.1 (2.2-3.9) gm/dL Albumin/Globulin Ratio 0.8 L (1.0-2.1) Venous Blood Potassium (3.6-5.2) mmol/L Urine Color (YELLOW) Urine Clarity (Clear) Urine pH (5.0-8.0) Ur Specific [place] (1.003-1.030) Urine Protein (NEGATIVE) mg/dL Urine Glucose (UA) (NEGATIVE) mg/dL Urine Ketones (NEGATIVE) mg/dL Urine Blood (NEGATIVE) Urine Nitrate (NEGATIVE) Urine Bilirubin (NEGATIVE) Urine Urobilinogen (0.2-1.0) mg/dL Ur Leukocyte Esterase (Negative) Cornelio/uL Urine RBC (Auto) (0-3) /hpf Urine Microscopic WBC (0-5) /hpf Ur Squamous Epith Cells (0-5) /hpf Urine Bacteria (<OCC) Urine Osmolality (300-1000) mosm/kg Ur Random Creatinine mg/dL Ur Random Sodium meq/L Ur Random Potassium mmol/L Stool Occult Blood (NEGATIVE) 07/10/18 07/10/18 07/10/18 Range/Units 17:25 17:25 17:25 WBC 18.8 H (4.8-10.8) K/uL RBC 2.80 L (4.40-5.90) Mil/uL Hgb 8.3 L (12.0-18.0) g/dL Hct 25.1 L (35.0-51.0) % MCV 89.6 (80.0-94.0) fl MCH 29.7 (27.0-31.0) pg MCHC 33.1 (33.0-37.0) g/dL RDW 15.9 H (11.5-14.5) % Plt Count 70 L D (130-400) K/uL MPV (7.2-11.7) fl Neut % (Auto) (50.0-75.0) % Lymph % (Auto) (20.0-40.0) % [place] % (Auto) (0.0-10.0) % Eos % (Auto) (0.0-4.0) % Baso % (Auto) (0.0-2.0) % Neut # (Auto) (1.8-7.0) K/uL Lymph # (Auto) (1.0-4.3) K/uL [place] # (Auto) (0.0-0.8) K/uL Eos # (Auto) (0.0-0.7) K/uL Baso # (Auto) (0.0-0.2) K/uL Total Counted Neutrophils % (Manual) Band Neutrophils % Lymphocytes % (Manual) Reactive Lymphs % Monocytes % (Manual) Eosinophils % (Manual) Basophils % (Manual) Metamyelocytes % Myelocytes % Promyelocytes % Blast Cells % Plasma Cell % (Manual) Nucleated RBC % Hypersegmented Polys Smudge Cells Toxic Granulation Dohle Bodies Jose Rods Platelet Estimate Plt Clumps, EDTA Large Platelets Giant Platelets RBC Morphology Polychromasia Hypochromasia (manual) Poikilocytosis (manual Basophilic Stippling Anisocytosis (manual) Microcytosis (manual) Macrocytosis (manual) Spherocytes Sickle Cells Target Cells Tear Drop Cells Ovalocytes Stomatocytes Helmet Cells [place] Bodies Lynch Cells Acanthocytes (Spur) Rouleaux Schistocytes pCO2 (35-45) mm/Hg pO2 (30-55) mm/Hg HCO3 (21-28) mmol/L ABG pH (7.35-7.45) ABG Total CO2 (22-28) mmol/L ABG O2 Saturation (95-98) % ABG O2 Content (15-23) ML/dL ABG Base Excess (-2.0-3.0) mmol/L ABG Hemoglobin (11.7-17.4) g/dL ABG Carboxyhemoglobin (0.5-1.5) % POC ABG HHb (Measured) (0.0-5.0) % ABG Methemoglobin (0.0-3.0) % ABG O2 Capacity (16-24) mL/dL Van Test VBG pH (7.32-7.43) VBG pCO2 (40-60) mmHg VBG HCO3 mmol/L VBG Total CO2 (22-28) mmol/L VBG O2 Sat (Calc) (40-65) % VBG Base Excess (0.0-2.0) mmol/L VBG Potassium (3.6-5.2) mmol/L A-a O2 Difference mm/Hg Hgb O2 Saturation (95.0-98.0) % Sodium (132-148) mmol/L Chloride (98-107) mmol/L Glucose (75-110) mg/dL Lactate (0.7-2.1) mmol/L Vent Mode Mechanical Rate FiO2 % Tidal Volume Crit Value Called To Crit Value Called By Crit Value Read Back Blood Gas Notified Time Potassium (3.6-5.0) MMOL/L Carbon Dioxide (22-30) mmol/L Anion Gap (10-20) BUN (9-20) mg/dl Creatinine (0.8-1.5) mg/dl Est GFR ( Amer) Est GFR (Non-Af Amer) POC Glucose (mg/dL) (65-110) mg/dL Random Glucose (75-110) mg/dL Lactic Acid 3.0 H (0.7-2.1) mmol/L Calcium (8.4-10.2) mg/dL Phosphorus (2.5-4.5) mg/dl Magnesium (1.6-2.3) MG/DL Total Bilirubin (0.2-1.3) mg/dl AST (17-59) U/L ALT (21-72) U/L Alkaline Phosphatase (38-126) U/L Total Protein (6.3-8.2) G/DL Albumin (3.5-5.0) g/dL Globulin (2.2-3.9) gm/dL Albumin/Globulin Ratio (1.0-2.1) Venous Blood Potassium (3.6-5.2) mmol/L Urine Color (YELLOW) Urine Clarity (Clear) Urine pH (5.0-8.0) Ur Specific [place] (1.003-1.030) Urine Protein (NEGATIVE) mg/dL Urine Glucose (UA) (NEGATIVE) mg/dL Urine Ketones (NEGATIVE) mg/dL Urine Blood (NEGATIVE) Urine Nitrate (NEGATIVE) Urine Bilirubin (NEGATIVE) Urine Urobilinogen (0.2-1.0) mg/dL Ur Leukocyte Esterase (Negative) Cornelio/uL Urine RBC (Auto) (0-3) /hpf Urine Microscopic WBC (0-5) /hpf Ur Squamous Epith Cells (0-5) /hpf Urine Bacteria (<OCC) Urine Osmolality (300-1000) mosm/kg Ur Random Creatinine mg/dL Ur Random Sodium 138 meq/L Ur Random Potassium 45.4 mmol/L Stool Occult Blood (NEGATIVE) 07/10/18 07/10/18 07/10/18 Range/Units 16:17 15:34 15:00 WBC (4.8-10.8) K/uL RBC (4.40-5.90) Mil/uL Hgb (12.0-18.0) g/dL Hct (35.0-51.0) % MCV (80.0-94.0) fl MCH (27.0-31.0) pg MCHC (33.0-37.0) g/dL RDW (11.5-14.5) % Plt Count (130-400) K/uL MPV (7.2-11.7) fl Neut % (Auto) (50.0-75.0) % Lymph % (Auto) (20.0-40.0) % [place] % (Auto) (0.0-10.0) % Eos % (Auto) (0.0-4.0) % Baso % (Auto) (0.0-2.0) % Neut # (Auto) (1.8-7.0) K/uL Lymph # (Auto) (1.0-4.3) K/uL [place] # (Auto) (0.0-0.8) K/uL Eos # (Auto) (0.0-0.7) K/uL Baso # (Auto) (0.0-0.2) K/uL Total Counted Neutrophils % (Manual) Band Neutrophils % Lymphocytes % (Manual) Reactive Lymphs % Monocytes % (Manual) Eosinophils % (Manual) Basophils % (Manual) Metamyelocytes % Myelocytes % Promyelocytes % Blast Cells % Plasma Cell % (Manual) Nucleated RBC % Hypersegmented Polys Smudge Cells Toxic Granulation Dohle Bodies Jose Rods Platelet Estimate Plt Clumps, EDTA Large Platelets Giant Platelets RBC Morphology Polychromasia Hypochromasia (manual) Poikilocytosis (manual Basophilic Stippling Anisocytosis (manual) Microcytosis (manual) Macrocytosis (manual) Spherocytes Sickle Cells Target Cells Tear Drop Cells Ovalocytes Stomatocytes Helmet Cells [place] Bodies Lynch Cells Acanthocytes (Spur) Rouleaux Schistocytes pCO2 (35-45) mm/Hg pO2 (30-55) mm/Hg HCO3 (21-28) mmol/L ABG pH (7.35-7.45) ABG Total CO2 (22-28) mmol/L ABG O2 Saturation (95-98) % ABG O2 Content (15-23) ML/dL ABG Base Excess (-2.0-3.0) mmol/L ABG Hemoglobin (11.7-17.4) g/dL ABG Carboxyhemoglobin (0.5-1.5) % POC ABG HHb (Measured) (0.0-5.0) % ABG Methemoglobin (0.0-3.0) % ABG O2 Capacity (16-24) mL/dL Van Test VBG pH (7.32-7.43) VBG pCO2 (40-60) mmHg VBG HCO3 mmol/L VBG Total CO2 (22-28) mmol/L VBG O2 Sat (Calc) (40-65) % VBG Base Excess (0.0-2.0) mmol/L VBG Potassium (3.6-5.2) mmol/L A-a O2 Difference mm/Hg Hgb O2 Saturation (95.0-98.0) % Sodium (132-148) mmol/L Chloride (98-107) mmol/L Glucose (75-110) mg/dL Lactate (0.7-2.1) mmol/L Vent Mode Mechanical Rate FiO2 % Tidal Volume Crit Value Called To Crit Value Called By Crit Value Read Back Blood Gas Notified Time Potassium (3.6-5.0) MMOL/L Carbon Dioxide (22-30) mmol/L Anion Gap (10-20) BUN (9-20) mg/dl Creatinine (0.8-1.5) mg/dl Est GFR ( Amer) Est GFR (Non-Af Amer) POC Glucose (mg/dL) 172 H (65-110) mg/dL Random Glucose (75-110) mg/dL Lactic Acid (0.7-2.1) mmol/L Calcium (8.4-10.2) mg/dL Phosphorus (2.5-4.5) mg/dl Magnesium (1.6-2.3) MG/DL Total Bilirubin (0.2-1.3) mg/dl AST (17-59) U/L ALT (21-72) U/L Alkaline Phosphatase (38-126) U/L Total Protein (6.3-8.2) G/DL Albumin (3.5-5.0) g/dL Globulin (2.2-3.9) gm/dL Albumin/Globulin Ratio (1.0-2.1) Venous Blood Potassium (3.6-5.2) mmol/L Urine Color Yellow (YELLOW) Urine Clarity Turbid (Clear) Urine pH 6.0 (5.0-8.0) Ur Specific [place] 1.018 (1.003-1.030) Urine Protein >=500 (NEGATIVE) mg/dL Urine Glucose (UA) 50 (NEGATIVE) mg/dL Urine Ketones Negative (NEGATIVE) mg/dL Urine Blood Large (NEGATIVE) Urine Nitrate Negative (NEGATIVE) Urine Bilirubin Negative (NEGATIVE) Urine Urobilinogen 0.2-1.0 (0.2-1.0) mg/dL Ur Leukocyte Esterase Large (Negative) Cornelio/uL Urine RBC (Auto) 274 H (0-3) /hpf Urine Microscopic WBC 316 H (0-5) /hpf Ur Squamous Epith Cells 3 (0-5) /hpf Urine Bacteria Occ H (<OCC) Urine Osmolality (300-1000) mosm/kg Ur Random Creatinine mg/dL Ur Random Sodium meq/L Ur Random Potassium mmol/L Stool Occult Blood Positive H (NEGATIVE) 07/10/18 07/10/18 Range/Units 13:05 11:03 WBC (4.8-10.8) K/uL RBC (4.40-5.90) Mil/uL Hgb (12.0-18.0) g/dL Hct (35.0-51.0) % MCV (80.0-94.0) fl MCH (27.0-31.0) pg MCHC (33.0-37.0) g/dL RDW (11.5-14.5) % Plt Count (130-400) K/uL MPV (7.2-11.7) fl Neut % (Auto) (50.0-75.0) % Lymph % (Auto) (20.0-40.0) % [place] % (Auto) (0.0-10.0) % Eos % (Auto) (0.0-4.0) % Baso % (Auto) (0.0-2.0) % Neut # (Auto) (1.8-7.0) K/uL Lymph # (Auto) (1.0-4.3) K/uL [place] # (Auto) (0.0-0.8) K/uL Eos # (Auto) (0.0-0.7) K/uL Baso # (Auto) (0.0-0.2) K/uL Total Counted Neutrophils % (Manual) Band Neutrophils % Lymphocytes % (Manual) Reactive Lymphs % Monocytes % (Manual) Eosinophils % (Manual) Basophils % (Manual) Metamyelocytes % Myelocytes % Promyelocytes % Blast Cells % Plasma Cell % (Manual) Nucleated RBC % Hypersegmented Polys Smudge Cells Toxic Granulation Dohle Bodies Jose Rods Platelet Estimate Plt Clumps, EDTA Large Platelets Giant Platelets RBC Morphology Polychromasia Hypochromasia (manual) Poikilocytosis (manual Basophilic Stippling Anisocytosis (manual) Microcytosis (manual) Macrocytosis (manual) Spherocytes Sickle Cells Target Cells Tear Drop Cells Ovalocytes Stomatocytes Helmet Cells [place] Bodies Sindi Cells Acanthocytes (Spur) Rouleaux Schistocytes pCO2 (35-45) mm/Hg pO2 33 (30-55) mm/Hg HCO3 (21-28) mmol/L ABG pH (7.35-7.45) ABG Total CO2 (22-28) mmol/L ABG O2 Saturation (95-98) % ABG O2 Content (15-23) ML/dL ABG Base Excess (-2.0-3.0) mmol/L ABG Hemoglobin (11.7-17.4) g/dL ABG Carboxyhemoglobin (0.5-1.5) % POC ABG HHb (Measured) (0.0-5.0) % ABG Methemoglobin (0.0-3.0) % ABG O2 Capacity (16-24) mL/dL Van Test VBG pH 7.40 (7.32-7.43) VBG pCO2 33 L (40-60) mmHg VBG HCO3 21.2 mmol/L VBG Total CO2 21.4 L (22-28) mmol/L VBG O2 Sat (Calc) 73.7 H (40-65) % VBG Base Excess -3.6 L (0.0-2.0) mmol/L VBG Potassium 3.3 L (3.6-5.2) mmol/L A-a O2 Difference mm/Hg Hgb O2 Saturation (95.0-98.0) % Sodium 140.0 (132-148) mmol/L Chloride 107.0 (98-107) mmol/L Glucose 232 H (75-110) mg/dL Lactate 5.7 H* (0.7-2.1) mmol/L Vent Mode Mechanical Rate FiO2 50.0 % Tidal Volume Crit Value Called To Irma dawn Crit Value Called By 23 Crit Value Read Back Y Blood Gas Notified Time 1315 Potassium (3.6-5.0) MMOL/L Carbon Dioxide (22-30) mmol/L Anion Gap (10-20) BUN (9-20) mg/dl Creatinine (0.8-1.5) mg/dl Est GFR ( Amer) Est GFR (Non-Af Amer) POC Glucose (mg/dL) 209 H (65-110) mg/dL Random Glucose (75-110) mg/dL Lactic Acid (0.7-2.1) mmol/L Calcium (8.4-10.2) mg/dL Phosphorus (2.5-4.5) mg/dl Magnesium (1.6-2.3) MG/DL Total Bilirubin (0.2-1.3) mg/dl AST (17-59) U/L ALT (21-72) U/L Alkaline Phosphatase (38-126) U/L Total Protein (6.3-8.2) G/DL Albumin (3.5-5.0) g/dL Globulin (2.2-3.9) gm/dL Albumin/Globulin Ratio (1.0-2.1) Venous Blood Potassium 3.3 L (3.6-5.2) mmol/L Urine Color (YELLOW) Urine Clarity (Clear) Urine pH (5.0-8.0) Ur Specific [place] (1.003-1.030) Urine Protein (NEGATIVE) mg/dL Urine Glucose (UA) (NEGATIVE) mg/dL Urine Ketones (NEGATIVE) mg/dL Urine Blood (NEGATIVE) Urine Nitrate (NEGATIVE) Urine Bilirubin (NEGATIVE) Urine Urobilinogen (0.2-1.0) mg/dL Ur Leukocyte Esterase (Negative) Cornelio/uL Urine RBC (Auto) (0-3) /hpf Urine Microscopic WBC (0-5) /hpf Ur Squamous Epith Cells (0-5) /hpf Urine Bacteria (<OCC) Urine Osmolality (300-1000) mosm/kg Ur Random Creatinine mg/dL Ur Random Sodium meq/L Ur Random Potassium mmol/L Stool Occult Blood (NEGATIVE) Laboratory Results - last 24 hr 07/10/18 07/10/18 07/10/18 11:03 13:05 15:00 WBC RBC Hgb Hct MCV MCH MCHC RDW Plt Count MPV Neut % (Auto) Lymph % (Auto) [place] % (Auto) Eos % (Auto) Baso % (Auto) Neut # (Auto) Lymph # (Auto) [place] # (Auto) Eos # (Auto) Baso # (Auto) Total Counted Neutrophils % (Manual) Band Neutrophils % Lymphocytes % (Manual) Reactive Lymphs % Monocytes % (Manual) Eosinophils % (Manual) Basophils % (Manual) Metamyelocytes % Myelocytes % Promyelocytes % Blast Cells % Plasma Cell % (Manual) Nucleated RBC % Hypersegmented Polys Smudge Cells Toxic Granulation Dohle Bodies Jose Rods Platelet Estimate Plt Clumps, EDTA Large Platelets Giant Platelets RBC Morphology Polychromasia Hypochromasia (manual) Poikilocytosis (manual Basophilic Stippling Anisocytosis (manual) Microcytosis (manual) Macrocytosis (manual) Spherocytes Sickle Cells Target Cells Tear Drop Cells Ovalocytes Stomatocytes Helmet Cells [place] Bodies Sindi Cells Acanthocytes (Spur) Rouleaux Schistocytes pCO2 pO2 33 HCO3 ABG pH ABG Total CO2 ABG O2 Saturation ABG O2 Content ABG Base Excess ABG Hemoglobin ABG Carboxyhemoglobin POC ABG HHb (Measured) ABG Methemoglobin ABG O2 Capacity Van Test VBG pH 7.40 VBG pCO2 33 L VBG HCO3 21.2 VBG Total CO2 21.4 L VBG O2 Sat (Calc) 73.7 H VBG Base Excess -3.6 L VBG Potassium 3.3 L A-a O2 Difference Hgb O2 Saturation Sodium 140.0 Chloride 107.0 Glucose 232 H Lactate 5.7 H* Vent Mode Mechanical Rate FiO2 50.0 Tidal Volume Crit Value Called To Irma dawn Crit Value Called By 23 Crit Value Read Back Y Blood Gas Notified Time 1315 Potassium Carbon Dioxide Anion Gap BUN Creatinine Est GFR ( Amer) Est GFR (Non-Af Amer) POC Glucose (mg/dL) 209 H Random Glucose Lactic Acid Calcium Phosphorus Magnesium Total Bilirubin AST ALT Alkaline Phosphatase Total Protein Albumin Globulin Albumin/Globulin Ratio Venous Blood Potassium 3.3 L Urine Color Urine Clarity Urine pH Ur Specific [place] Urine Protein Urine Glucose (UA) Urine Ketones Urine Blood Urine Nitrate Urine Bilirubin Urine Urobilinogen Ur Leukocyte Esterase Urine RBC (Auto) Urine Microscopic WBC Ur Squamous Epith Cells Urine Bacteria Urine Osmolality Ur Random Creatinine Ur Random Sodium Ur Random Potassium Stool Occult Blood Positive H 07/10/18 07/10/18 07/10/18 15:34 16:17 17:25 WBC 18.8 H RBC 2.80 L Hgb 8.3 L Hct 25.1 L MCV 89.6 MCH 29.7 MCHC 33.1 RDW 15.9 H Plt Count 70 L D MPV Neut % (Auto) Lymph % (Auto) [place] % (Auto) Eos % (Auto) Baso % (Auto) Neut # (Auto) Lymph # (Auto) [place] # (Auto) Eos # (Auto) Baso # (Auto) Total Counted Neutrophils % (Manual) Band Neutrophils % Lymphocytes % (Manual) Reactive Lymphs % Monocytes % (Manual) Eosinophils % (Manual) Basophils % (Manual) Metamyelocytes % Myelocytes % Promyelocytes % Blast Cells % Plasma Cell % (Manual) Nucleated RBC % Hypersegmented Polys Smudge Cells Toxic Granulation Dohle Bodies Jose Rods Platelet Estimate Plt Clumps, EDTA Large Platelets Giant Platelets RBC Morphology Polychromasia Hypochromasia (manual) Poikilocytosis (manual Basophilic Stippling Anisocytosis (manual) Microcytosis (manual) Macrocytosis (manual) Spherocytes Sickle Cells Target Cells Tear Drop Cells Ovalocytes Stomatocytes Helmet Cells [place] Bodies Lynch Cells Acanthocytes (Spur) Rouleaux Schistocytes pCO2 pO2 HCO3 ABG pH ABG Total CO2 ABG O2 Saturation ABG O2 Content ABG Base Excess ABG Hemoglobin ABG Carboxyhemoglobin POC ABG HHb (Measured) ABG Methemoglobin ABG O2 Capacity Van Test VBG pH VBG pCO2 VBG HCO3 VBG Total CO2 VBG O2 Sat (Calc) VBG Base Excess VBG Potassium A-a O2 Difference Hgb O2 Saturation Sodium Chloride Glucose Lactate Vent Mode Mechanical Rate FiO2 Tidal Volume Crit Value Called To Crit Value Called By Crit Value Read Back Blood Gas Notified Time Potassium Carbon Dioxide Anion Gap BUN Creatinine Est GFR ( Amer) Est GFR (Non-Af Amer) POC Glucose (mg/dL) 172 H Random Glucose Lactic Acid Calcium Phosphorus Magnesium Total Bilirubin AST ALT Alkaline Phosphatase Total Protein Albumin Globulin Albumin/Globulin Ratio Venous Blood Potassium Urine Color Yellow Urine Clarity Turbid Urine pH 6.0 Ur Specific [place] 1.018 Urine Protein >=500 Urine Glucose (UA) 50 Urine Ketones Negative Urine Blood Large Urine Nitrate Negative Urine Bilirubin Negative Urine Urobilinogen 0.2-1.0 Ur Leukocyte Esterase Large Urine RBC (Auto) 274 H Urine Microscopic WBC 316 H Ur Squamous Epith Cells 3 Urine Bacteria Occ H Urine Osmolality Ur Random Creatinine Ur Random Sodium Ur Random Potassium Stool Occult Blood 07/10/18 07/10/18 07/10/18 17:25 17:25 20:44 WBC RBC Hgb Hct MCV MCH MCHC RDW Plt Count MPV Neut % (Auto) Lymph % (Auto) [place] % (Auto) Eos % (Auto) Baso % (Auto) Neut # (Auto) Lymph # (Auto) [place] # (Auto) Eos # (Auto) Baso # (Auto) Total Counted Neutrophils % (Manual) Band Neutrophils % Lymphocytes % (Manual) Reactive Lymphs % Monocytes % (Manual) Eosinophils % (Manual) Basophils % (Manual) Metamyelocytes % Myelocytes % Promyelocytes % Blast Cells % Plasma Cell % (Manual) Nucleated RBC % Hypersegmented Polys Smudge Cells Toxic Granulation Dohle Bodies Jose Rods Platelet Estimate Plt Clumps, EDTA Large Platelets Giant Platelets RBC Morphology Polychromasia Hypochromasia (manual) Poikilocytosis (manual Basophilic Stippling Anisocytosis (manual) Microcytosis (manual) Macrocytosis (manual) Spherocytes Sickle Cells Target Cells Tear Drop Cells Ovalocytes Stomatocytes Helmet Cells [place] Bodies Lynch Cells Acanthocytes (Spur) Rouleaux Schistocytes pCO2 pO2 HCO3 ABG pH ABG Total CO2 ABG O2 Saturation ABG O2 Content ABG Base Excess ABG Hemoglobin ABG Carboxyhemoglobin POC ABG HHb (Measured) ABG Methemoglobin ABG O2 Capacity Van Test VBG pH VBG pCO2 VBG HCO3 VBG Total CO2 VBG O2 Sat (Calc) VBG Base Excess VBG Potassium A-a O2 Difference Hgb O2 Saturation Sodium Chloride Glucose Lactate Vent Mode Mechanical Rate FiO2 Tidal Volume Crit Value Called To Crit Value Called By Crit Value Read Back Blood Gas Notified Time Potassium Carbon Dioxide Anion Gap BUN Creatinine Est GFR ( Amer) Est GFR (Non-Af Amer) POC Glucose (mg/dL) 152 H Random Glucose Lactic Acid 3.0 H Calcium Phosphorus Magnesium Total Bilirubin AST ALT Alkaline Phosphatase Total Protein Albumin Globulin Albumin/Globulin Ratio Venous Blood Potassium Urine Color Urine Clarity Urine pH Ur Specific [place] Urine Protein Urine Glucose (UA) Urine Ketones Urine Blood Urine Nitrate Urine Bilirubin Urine Urobilinogen Ur Leukocyte Esterase Urine RBC (Auto) Urine Microscopic WBC Ur Squamous Epith Cells Urine Bacteria Urine Osmolality Ur Random Creatinine Ur Random Sodium 138 Ur Random Potassium 45.4 Stool Occult Blood 07/11/18 07/11/18 07/11/18 04:10 04:10 04:55 WBC 18.2 H RBC 2.72 L Hgb 8.2 L Hct 24.3 L MCV 89.3 MCH 30.0 MCHC 33.6 RDW 15.8 H Plt Count 56 L MPV 8.3 Neut % (Auto) 91.2 H Lymph % (Auto) 4.8 L [place] % (Auto) 2.5 Eos % (Auto) 1.1 Baso % (Auto) 0.4 Neut # (Auto) 16.6 H Lymph # (Auto) 0.9 L [place] # (Auto) 0.5 Eos # (Auto) 0.2 Baso # (Auto) 0.1 Total Counted Cancelled Neutrophils % (Manual) Cancelled Band Neutrophils % Cancelled Lymphocytes % (Manual) Cancelled Reactive Lymphs % Cancelled Monocytes % (Manual) Cancelled Eosinophils % (Manual) Cancelled Basophils % (Manual) Cancelled Metamyelocytes % Cancelled Myelocytes % Cancelled Promyelocytes % Cancelled Blast Cells % Cancelled Plasma Cell % (Manual) Cancelled Nucleated RBC % Cancelled Hypersegmented Polys Cancelled Smudge Cells Cancelled Toxic Granulation Cancelled Dohle Bodies Cancelled Jose Rods Cancelled Platelet Estimate Cancelled Plt Clumps, EDTA Cancelled Large Platelets Cancelled Giant Platelets Cancelled RBC Morphology Cancelled Polychromasia Cancelled Hypochromasia (manual) Cancelled Poikilocytosis (manual Cancelled Basophilic Stippling Cancelled Anisocytosis (manual) Cancelled Microcytosis (manual) Cancelled Macrocytosis (manual) Cancelled Spherocytes Cancelled Sickle Cells Cancelled Target Cells Cancelled Tear Drop Cells Cancelled Ovalocytes Cancelled Stomatocytes Cancelled Helmet Cells Cancelled [place] Bodies Cancelled Sindi Cells Cancelled Acanthocytes (Spur) Cancelled Rouleaux Cancelled Schistocytes Cancelled pCO2 28 L pO2 203 H HCO3 22.0 ABG pH 7.45 ABG Total CO2 20.4 L ABG O2 Saturation 100.9 H ABG O2 Content 12.3 L ABG Base Excess -3.8 L ABG Hemoglobin 8.6 L ABG Carboxyhemoglobin 1.9 H POC ABG HHb (Measured) -0.9 L ABG Methemoglobin 1.5 ABG O2 Capacity 12.2 L Van Test Yes VBG pH VBG pCO2 VBG HCO3 VBG Total CO2 VBG O2 Sat (Calc) VBG Base Excess VBG Potassium A-a O2 Difference 190.0 Hgb O2 Saturation 97.5 Sodium 140 Chloride 108 H Glucose Lactate Vent Mode A/c Mechanical Rate 12 FiO2 60.0 Tidal Volume 450 Crit Value Called To Crit Value Called By Crit Value Read Back Blood Gas Notified Time Potassium 3.7 Carbon Dioxide 22 Anion Gap 14 BUN 36 H Creatinine 3.3 H Est GFR ( Amer) 22 Est GFR (Non-Af Amer) 18 POC Glucose (mg/dL) Random Glucose 131 H Lactic Acid Calcium 6.6 L Phosphorus 4.1 Magnesium 1.7 Total Bilirubin 2.3 H AST 1335 H ALT 587 H D Alkaline Phosphatase 70 Total Protein 5.5 L Albumin 2.4 L Globulin 3.1 Albumin/Globulin Ratio 0.8 L Venous Blood Potassium Urine Color Urine Clarity Urine pH Ur Specific [place] Urine Protein Urine Glucose (UA) Urine Ketones Urine Blood Urine Nitrate Urine Bilirubin Urine Urobilinogen Ur Leukocyte Esterase Urine RBC (Auto) Urine Microscopic WBC Ur Squamous Epith Cells Urine Bacteria Urine Osmolality Ur Random Creatinine Ur Random Sodium Ur Random Potassium Stool Occult Blood 07/11/18 07/11/18 06:48 11:40 WBC RBC Hgb Hct MCV MCH MCHC RDW Plt Count MPV Neut % (Auto) Lymph % (Auto) [place] % (Auto) Eos % (Auto) Baso % (Auto) Neut # (Auto) Lymph # (Auto) [place] # (Auto) Eos # (Auto) Baso # (Auto) Total Counted Neutrophils % (Manual) Band Neutrophils % Lymphocytes % (Manual) Reactive Lymphs % Monocytes % (Manual) Eosinophils % (Manual) Basophils % (Manual) Metamyelocytes % Myelocytes % Promyelocytes % Blast Cells % Plasma Cell % (Manual) Nucleated RBC % Hypersegmented Polys Smudge Cells Toxic Granulation Dohle Bodies Jose Rods Platelet Estimate Plt Clumps, EDTA Large Platelets Giant Platelets RBC Morphology Polychromasia Hypochromasia (manual) Poikilocytosis (manual Basophilic Stippling Anisocytosis (manual) Microcytosis (manual) Macrocytosis (manual) Spherocytes Sickle Cells Target Cells Tear Drop Cells Ovalocytes Stomatocytes Helmet Cells [place] Bodies Lynch Cells Acanthocytes (Spur) Rouleaux Schistocytes pCO2 pO2 HCO3 ABG pH ABG Total CO2 ABG O2 Saturation ABG O2 Content ABG Base Excess ABG Hemoglobin ABG Carboxyhemoglobin POC ABG HHb (Measured) ABG Methemoglobin ABG O2 Capacity Van Test VBG pH VBG pCO2 VBG HCO3 VBG Total CO2 VBG O2 Sat (Calc) VBG Base Excess VBG Potassium A-a O2 Difference Hgb O2 Saturation Sodium Chloride Glucose Lactate Vent Mode Mechanical Rate FiO2 Tidal Volume Crit Value Called To Crit Value Called By Crit Value Read Back Blood Gas Notified Time Potassium Carbon Dioxide Anion Gap BUN Creatinine Est GFR ( Amer) Est GFR (Non-Af Amer) POC Glucose (mg/dL) 140 H Random Glucose Lactic Acid Calcium Phosphorus Magnesium Total Bilirubin AST ALT Alkaline Phosphatase Total Protein Albumin Globulin Albumin/Globulin Ratio Venous Blood Potassium Urine Color Urine Clarity Urine pH Ur Specific [place] Urine Protein Urine Glucose (UA) Urine Ketones Urine Blood Urine Nitrate Urine Bilirubin Urine Urobilinogen Ur Leukocyte Esterase Urine RBC (Auto) Urine Microscopic WBC Ur Squamous Epith Cells Urine Bacteria Urine Osmolality 303 Ur Random Creatinine 18.7 Ur Random Sodium 113 Ur Random Potassium Stool Occult Blood Radiology Impressions: Radiology Impressions Chest X-Ray 07/11/18 06:00 IMPRESSION: Worsening multifocal infiltrates/pulmonary edema. EKG/Cardiology Studies: Cardiology / EKG Studies 07/11/18 09:00 EKG [ELECTROCARDIOGRAM] DAILY Comment: Mode Of Transportation: Reason For Exam: SVT versus Sinus tachy Assessment/Plan - Assessment and Plan (Free Text) Assessment: Attestation: Patient seen and examined at the bedside with Resident Dr. Kim Abel; and I agree with her outline of plans and management documented above as discussed on AM rounds; reflecting my review of all applicable clinical data, and participation in the care of the patient throughout the day in ICU; today, July 11, 2018. Time spent with this patient did not overlap with any other provider's medical or critical care time. Additionally the code selected for the services rendered in this note includes the time spent: talking to the patients family, associated physicians and reviewing hospital data/results not listed here which extended to a total of 35 minutes of critical care. Neurologic status essentially unchanged in deep comatose state. He does trigger the vent, and he does not require any vasopressors. HR tachycardic again and in Rapid A fib, additional beta jatin therapy IV given. Remains near-anuric, and high dose Lasix Challenges given with no significant effect, seen by Nephro, and awaiting family decision on HD, though this will not change the overall poor outcome of the patient. Liver also affected with ischemic hepatocellular enzyme elevations noted.
--- NOTE | 2018-07-11 11:45 | CP.PCM.PN ---
Subjective - Date & Time of Evaluation Date of Evaluation: 07/11/18 Time of Evaluation: 11:40 - Subjective Subjective: Seen on morning rounds in the ICU. Remains orally intubated and mechanically ventilated. Unresponsive to tactile and noxious stimuli. Case discussed with manager [employer]. Family members at the bedside during exam. AM cheat x-ray and labs were reviewed. Ventilator settings noted. AM ABG reviewed. Orally intubated. Neck is supple, trachea midline. No dullness on percussion of the anterior thorax. No palpable subcutaneous emphysema. Breath sounds are equally heard in both lungs. Few scattered dry to medium rales are heard in the right lung. No audible wheezing or bronchial breathing. Heart sounds are distant and rate is tachy. Continue mechanical ventilatory support. Any weaning will be dependant on neurological status. At this time vent settings will be largely unchanged. CCT 30min. Objective - Vital Signs/Intake and Output Vital Signs (last 24 hours): Temp Pulse Resp BP Pulse Ox 98.8 F 123 H 16 133/71 100 07/11/18 10:00 07/11/18 10:00 07/11/18 10:00 07/11/18 10:00 07/11/18 10:00 Intake and Output: 07/10/18 07/11/18 23:59 11:59 Intake Total 3369 469 Output Total 10 Balance 3369 459 - Medications Medications: Current Medications Enoxaparin Sodium (Lovenox) 30 mg SC DAILY ANTONY; Protocol Last Admin: 07/08/18 09:10 Dose: 30 mg Piperacillin Sod/Tazobactam (Sod 2.25 gm/ Sodium Chloride) 100 mls @ 100 mls/hr IVPB Q12 ANTONY; Protocol Last Admin: 07/11/18 08:43 Dose: 100 mls/hr Meropenem 500 mg/ Sodium (Chloride) 100 mls @ 100 mls/hr IVPB Q12H ANTONY; Protocol Last Admin: 07/11/18 00:16 Dose: 100 mls/hr Sodium Chloride (Sodium Chloride 0.9%) 1,000 mls @ 999 mls/hr IV .Q1H1M ANTONY Stop: 07/11/18 15:23 Insulin Human Lispro (Humalog) 0 units SC ACHS ANTONY; Protocol Last Admin: 07/11/18 06:49 Dose: Not Given Ipratropium [place] (Atrovent) 0.5 mg IH RQ6 [facility] Last Admin: 07/11/18 07:49 Dose: Not Given Latanoprost (Xalatan Opht) 1 drop OD HS [facility] Last Admin: 07/10/18 22:13 Dose: 1 drop Metoprolol Tartrate (Lopressor) 150 mg PO Q12@0700,1900 [facility] Last Admin: 07/11/18 06:09 Dose: Not Given Metoprolol Tartrate (Lopressor) 5 mg IVP Q6 [facility] Last Admin: 07/11/18 09:26 Dose: 5 mg Ondansetron HCl (Zofran Inj) 4 mg IVP Q6 PRN PRN Reason: Nausea/Vomiting Pantoprazole Sodium (Protonix Inj) 40 mg IVP DAILY [facility] - Labs Labs: 07/11/18 04:10 07/11/18 04:10 PT 19.6 Seconds (9.8-13.1) H 07/10/18 02:30 INR 1.7 07/10/18 02:30 APTT 47.8 Seconds (25.6-37.1) H 07/10/18 02:30 Assessment and Plan (1) HCAP (healthcare-associated pneumonia) Status: Acute (2) Acute blood loss anemia Status: Acute (3) COPD (chronic obstructive pulmonary disease) Status: Chronic (4) Respiratory failure Status: Acute (5) On mechanically assisted ventilation Status: Acute (6) Altered mental status Status: Acute
[2018-07-11 12:18] LABS: CREATININE, RANDOM URINE 18.7 mg/dL
--- NOTE | 2018-07-11 12:19 | RAD ---
Date of service: 07/11/2018 HISTORY: ETT placement COMPARISON: July 10, 2018. FINDINGS: LUNGS: Worsening multifocal infiltrates likely pulmonary edema. PLEURA: No significant pleural effusion identified, no pneumothorax apparent. CARDIOVASCULAR: No atherosclerotic calcification present Position/ configuration of pacemaker OSSEOUS STRUCTURES: No significant abnormalities. VISUALIZED UPPER ABDOMEN: Normal. OTHER FINDINGS: Satisfactory position of endotracheal tube. IMPRESSION: Worsening multifocal infiltrates/pulmonary edema.
[2018-07-11] MEDS ORDERED: Metoprolol 1 mg/ml Inj IVP ONE ×2 (12:25→13:38)
--- NOTE | 2018-07-11 13:08 | CP.CCUPN ---
CCU Subjective - Physician Review Subjective (Free Text): Events over last night reviewed, resuscitated from james-asystole, on Dopamine, now on Levophed and alkalinized fluids. Comatose to deep pain stimuli, does not exhibit any gag, carinal, pupillary reflexes. Triggering vent at 24/min on AC 12. He remains in sinus tachy rhythm. Afebrile, with temps mostly 98-97F last 24H; SBP 120s, HR 100s, 9. Urine output is oliguric. He is in positive fluid balance of 0.745L last 24H. ROS: No other pertinent negs or positives on 10+ system review obtainable. PMSFH: All other Nursing and physician documentation reviewed to date; no new pertinent info noted relevant to current medical problems. EXAM- HEENT: no icterus, no gaze preference, pupils un equal and non-reactive 3 mm size, no nystagmus. NECK: supple, no visible JVD, no adenopathy, thyroid non-palpable. CHEST: decreased BS at the bases, scattered crackles, no wheezes audible bilaterally. HEART: irregular, distant, tachy S1S2, no rubs or murmurs noted ABD: soft, no distention or tympany, no guarding or focal tenderness; BS hypoactive. Large area of ecchymoses over R lateral abdomen EXT: no leg edema and thigh edema, no cyanoses, calf tenderness or palpable cords, distal pulses intact and symmetrical. L eft femoral V TLC. NEURO: flaccid x 4 extremities, no withdrawal on plantar testing, no tone. SKIN: no rashes, warm and dry LABS: WBC= 17.0 to 23.6 with 18% bands HGB= 5.4 to 10.0 PLTs= 115K to 90K INR 1.7 with PTT = 47.8 6.96/27/441 post code, repeated 5 hours later = 7.24/25/123 Na= 140 to 139 K= 4.6 to 4.1 CL= 108 to 105 HCO3= 17 to 17 BUN/Cr= 21/2.2 to 26/2.6 BS= 141 Lacate = 7.6, repeated 3 hours later = 5.7 Trop 1.00 yesterday , now 1.44 IMPRESSION / MAJOR PROBLEMS NOW: 1. James-Asystole to cardiac arrest 2. Acute Hypoxemic Resp Failure 2 #1 3. r/o Acute / NSTEMI 4. APURVA with ATN with CKD III 5. Chronic paroxysmal A fib, s/p RVR with Cardiomyopathy 6. Acute on Chronic Disease Anemia 7. s/p Lap Kylah PLAN: 1. Events reviewed overnight regarding Code Blue and resuscitation. Code Blue duration was almost 18-20 minutes of resuscitation time. Troponin this am was 1.44, EKG showed sinus rhythm 74/min, with RBBB and inverted Ts in anteroseptal leads. Presently remains in deep coma with no response to deep pain stimulus. Corneal reflexes are absent, pupils are fixed, R pupil not well visualized, Left pupil is 3 mm and NR, no Dolls eyes present, absent gag and carinal reflexes, though family stated they had observed carinal reflexes earlier an hour ago. He is triggering the vent at 24/ min on AC 12, SPO2 100% on 50% oxygen. PMD has requested formal Neurology eval. Consider CT brain. 2 Units PRBCs have been completed and FFP near-completion. No clinically evident s/sx of bleeding noted, stools are hemoccult+. Large abdominal wall hematoma noted on the Right side. Repeat Hgb post PRBCs = 10.0, Lactate level = 7.6 at 945AM. Dopamine has been stopped 3 hours earlier. He is hypotensive at approx. 1100AM and stated on Levophed in the interim. Repeat lactate and central VBG ordered. May consider Dobutamine therapy. Repeat CBC also showed new and progressive leukocytosis at 23.6K WBC with 18% bands. Vanco pulse dose added to Zosyn after blood cultures, urine cultures and UA obtained. Unexpected lactate level unclear if due to severe sepsis, versus primary cardiac event with hypoperfusion. Discussed with daughter and son at the bedside, and aware of present clinical status given present life support measures, albeit under a comatose and anoxic encephalopathy state post-resuscitation. No known Advance Directives noted, full support measures remain. Time spent with this patient did not overlap with any other provider's medical or critical care time. Additionally the code selected for the services rendered in this note includes the time spent: talking to the patients family, associated physicians and reviewing hospital data/results not listed here which extended to a total of 50 minutes of critical care. CCU Objective - Vital Signs / Intake & Output Vital Signs (Last 4 hours): Vital Signs Temp Pulse Resp BP Pulse Ox 07/11/18 13:02 138 H 150/75 07/11/18 12:00 99.0 F 139 H 17 138/81 100 07/11/18 11:00 99.0 F 113 H 17 133/71 100 07/11/18 10:00 98.8 F 123 H 16 133/71 100 07/11/18 09:26 127 H 139/76 Intake and Output (Last 8hrs): Intake & Output 07/10/18 07/11/18 07/11/18 22:59 06:59 14:59 Intake Total 1734 289 220 Output Total 10 10 Balance 1734 279 210 Intake: IV 634 189 120 Intake, Piggyback 1100 100 100 Output: Urine 10 10 Urethral (Villa) 10 10 - Physical Exam Head: Positive for: Atraumatic Pupils: Positive for: PERRL (no response), Non-Reactive Extroacular Muscles: Negative for: EOMI, Gaze Palsy Mouth: Positive for: Moist Mucous Membranes Respiratory/Chest: Positive for: Clear to Auscultation. Negative for: Respiratory Distress Abdomen: Positive for: Distention, Normal Bowel Sounds, Other (Right sided ecchymosis extending to both upper and lower quadrants, tense. Unable to assess pain. ) Genitourinary Male: Positive for: Testicle Swelling (significant scrotal swelling ) Upper Extremity: Positive for: Capillary Refill < 2s. Negative for: Edema Lower Extremity: Negative for: Edema Neurological: Positive for: Other (Pupils 3mm pin point, minimally reactive, no gaze pref) Skin: Positive for: Normal Color Psychiatric: Negative for: Alert (GCS3), Oriented x 3 - Medications Active Medications: Active Medications Generic Name Dose Route Start Last Admin Trade Name Freq PRN Reason Stop Dose Admin Enoxaparin Sodium 30 mg 07/05/18 09:00 07/08/18 09:10 Lovenox SC 30 mg DAILY ANTONY Administration Protocol Piperacillin Sod/Tazobactam 100 mls @ 100 mls/hr 07/10/18 21:00 07/11/18 08:43 Sod 2.25 gm/ Sodium Chloride IVPB 100 mls/hr Q12 ANTONY Administration Protocol Meropenem 500 mg/ Sodium 100 mls @ 100 mls/hr 07/10/18 13:15 07/11/18 12:20 Chloride IVPB 100 mls/hr Q12H ANTONY Administration Protocol Sodium Chloride 1,000 mls @ 999 mls/hr 07/10/18 15:30 Sodium Chloride 0.9% IV 07/11/18 15:23 .Q1H1M ANTONY Insulin Human Lispro 0 units 07/09/18 07:30 07/11/18 12:19 Humalog SC 1 units ACHS ANTONY Administration Protocol Ipratropium [place] 0.5 mg 07/10/18 14:00 07/11/18 07:49 Atrovent IH Not Given RQ6 ANTONY Latanoprost 1 drop 07/04/18 22:00 07/10/18 22:13 Xalatan Opht OD 1 drop HS ANTONY Administration Metoprolol Tartrate 150 mg 07/09/18 21:00 07/11/18 06:09 Lopressor PO Not Given Q12@0700,1900 [facility] Metoprolol Tartrate 5 mg 07/11/18 10:00 07/11/18 09:26 Lopressor IVP 5 mg Q6 ANTONY Administration Ondansetron HCl 4 mg 07/04/18 08:08 Zofran Inj IVP Q6 PRN Nausea/Vomiting Pantoprazole Sodium 40 mg 07/12/18 09:00 Protonix Inj IVP DAILY [facility] - Patient Studies Lab Studies: Microbiology Studies 07/10/18 14:35 Urine Culture - Final Urine,Villa No Growth (<1,000 CFU/ML) 07/10/18 14:34 Gram Stain - Final Sputum Induced Lab Studies 07/11/18 07/11/18 07/11/18 Range/Units 11:40 06:48 04:55 WBC (4.8-10.8) K/uL RBC (4.40-5.90) Mil/uL Hgb (12.0-18.0) g/dL Hct (35.0-51.0) % MCV (80.0-94.0) fl MCH (27.0-31.0) pg MCHC (33.0-37.0) g/dL RDW (11.5-14.5) % Plt Count (130-400) K/uL MPV (7.2-11.7) fl Neut % (Auto) (50.0-75.0) % Lymph % (Auto) (20.0-40.0) % [place] % (Auto) (0.0-10.0) % Eos % (Auto) (0.0-4.0) % Baso % (Auto) (0.0-2.0) % Neut # (Auto) (1.8-7.0) K/uL Lymph # (Auto) (1.0-4.3) K/uL [place] # (Auto) (0.0-0.8) K/uL Eos # (Auto) (0.0-0.7) K/uL Baso # (Auto) (0.0-0.2) K/uL Total Counted Neutrophils % (Manual) Band Neutrophils % Lymphocytes % (Manual) Reactive Lymphs % Monocytes % (Manual) Eosinophils % (Manual) Basophils % (Manual) Metamyelocytes % Myelocytes % Promyelocytes % Blast Cells % Plasma Cell % (Manual) Nucleated RBC % Hypersegmented Polys Smudge Cells Toxic Granulation Dohle Bodies Jose Rods Platelet Estimate Plt Clumps, EDTA Large Platelets Giant Platelets RBC Morphology Polychromasia Hypochromasia (manual) Poikilocytosis (manual Basophilic Stippling Anisocytosis (manual) Microcytosis (manual) Macrocytosis (manual) Spherocytes Sickle Cells Target Cells Tear Drop Cells Ovalocytes Stomatocytes Helmet Cells Gaines-Herndon Bodies Sindi Cells Acanthocytes (Spur) Rouleaux Schistocytes pCO2 28 L (35-45) mm/Hg pO2 203 H (30-55) mm/Hg HCO3 22.0 (21-28) mmol/L ABG pH 7.45 (7.35-7.45) ABG Total CO2 20.4 L (22-28) mmol/L ABG O2 Saturation 100.9 H (95-98) % ABG O2 Content 12.3 L (15-23) ML/dL ABG Base Excess -3.8 L (-2.0-3.0) mmol/L ABG Hemoglobin 8.6 L (11.7-17.4) g/dL ABG Carboxyhemoglobin 1.9 H (0.5-1.5) % POC ABG HHb (Measured) -0.9 L (0.0-5.0) % ABG Methemoglobin 1.5 (0.0-3.0) % ABG O2 Capacity 12.2 L (16-24) mL/dL Van Test Yes VBG pH (7.32-7.43) VBG pCO2 (40-60) mmHg VBG HCO3 mmol/L VBG Total CO2 (22-28) mmol/L VBG O2 Sat (Calc) (40-65) % VBG Base Excess (0.0-2.0) mmol/L VBG Potassium (3.6-5.2) mmol/L A-a O2 Difference 190.0 mm/Hg Hgb O2 Saturation 97.5 (95.0-98.0) % Sodium (132-148) mmol/L Chloride (98-107) mmol/L Glucose (75-110) mg/dL Lactate (0.7-2.1) mmol/L Vent Mode A/c Mechanical Rate 12 FiO2 60.0 % Tidal Volume 450 Crit Value Called To Crit Value Called By Crit Value Read Back Blood Gas Notified Time Potassium (3.6-5.0) MMOL/L Carbon Dioxide (22-30) mmol/L Anion Gap (10-20) BUN (9-20) mg/dl Creatinine (0.8-1.5) mg/dl Est GFR ( Amer) Est GFR (Non-Af Amer) POC Glucose (mg/dL) 140 H (65-110) mg/dL Random Glucose (75-110) mg/dL Lactic Acid (0.7-2.1) mmol/L Calcium (8.4-10.2) mg/dL Phosphorus (2.5-4.5) mg/dl Magnesium (1.6-2.3) MG/DL Total Bilirubin (0.2-1.3) mg/dl AST (17-59) U/L ALT (21-72) U/L Alkaline Phosphatase (38-126) U/L Total Protein (6.3-8.2) G/DL Albumin (3.5-5.0) g/dL Globulin (2.2-3.9) gm/dL Albumin/Globulin Ratio (1.0-2.1) Venous Blood Potassium (3.6-5.2) mmol/L Urine Color (YELLOW) Urine Clarity (Clear) Urine pH (5.0-8.0) Ur Specific [place] (1.003-1.030) Urine Protein (NEGATIVE) mg/dL Urine Glucose (UA) (NEGATIVE) mg/dL Urine Ketones (NEGATIVE) mg/dL Urine Blood (NEGATIVE) Urine Nitrate (NEGATIVE) Urine Bilirubin (NEGATIVE) Urine Urobilinogen (0.2-1.0) mg/dL Ur Leukocyte Esterase (Negative) Cornelio/uL Urine RBC (Auto) (0-3) /hpf Urine Microscopic WBC (0-5) /hpf Ur Squamous Epith Cells (0-5) /hpf Urine Bacteria (<OCC) Urine Osmolality 303 (300-1000) mosm/kg Ur Random Creatinine 18.7 mg/dL Ur Random Sodium 113 meq/L Ur Random Potassium mmol/L Stool Occult Blood (NEGATIVE) 07/11/18 07/11/18 07/10/18 Range/Units 04:10 04:10 20:44 WBC 18.2 H (4.8-10.8) K/uL RBC 2.72 L (4.40-5.90) Mil/uL Hgb 8.2 L (12.0-18.0) g/dL Hct 24.3 L (35.0-51.0) % MCV 89.3 (80.0-94.0) fl MCH 30.0 (27.0-31.0) pg MCHC 33.6 (33.0-37.0) g/dL RDW 15.8 H (11.5-14.5) % Plt Count 56 L (130-400) K/uL MPV 8.3 (7.2-11.7) fl Neut % (Auto) 91.2 H (50.0-75.0) % Lymph % (Auto) 4.8 L (20.0-40.0) % [place] % (Auto) 2.5 (0.0-10.0) % Eos % (Auto) 1.1 (0.0-4.0) % Baso % (Auto) 0.4 (0.0-2.0) % Neut # (Auto) 16.6 H (1.8-7.0) K/uL Lymph # (Auto) 0.9 L (1.0-4.3) K/uL [place] # (Auto) 0.5 (0.0-0.8) K/uL Eos # (Auto) 0.2 (0.0-0.7) K/uL Baso # (Auto) 0.1 (0.0-0.2) K/uL Total Counted Cancelled Neutrophils % (Manual) Cancelled Band Neutrophils % Cancelled Lymphocytes % (Manual) Cancelled Reactive Lymphs % Cancelled Monocytes % (Manual) Cancelled Eosinophils % (Manual) Cancelled Basophils % (Manual) Cancelled Metamyelocytes % Cancelled Myelocytes % Cancelled Promyelocytes % Cancelled Blast Cells % Cancelled Plasma Cell % (Manual) Cancelled Nucleated RBC % Cancelled Hypersegmented Polys Cancelled Smudge Cells Cancelled Toxic Granulation Cancelled Dohle Bodies Cancelled Jose Rods Cancelled Platelet Estimate Cancelled Plt Clumps, EDTA Cancelled Large Platelets Cancelled Giant Platelets Cancelled RBC Morphology Cancelled Polychromasia Cancelled Hypochromasia (manual) Cancelled Poikilocytosis (manual Cancelled Basophilic Stippling Cancelled Anisocytosis (manual) Cancelled Microcytosis (manual) Cancelled Macrocytosis (manual) Cancelled Spherocytes Cancelled Sickle Cells Cancelled Target Cells Cancelled Tear Drop Cells Cancelled Ovalocytes Cancelled Stomatocytes Cancelled Helmet Cells Cancelled Gaines-Herndon Bodies Cancelled Sindi Cells Cancelled Acanthocytes (Spur) Cancelled Rouleaux Cancelled Schistocytes Cancelled pCO2 (35-45) mm/Hg pO2 (30-55) mm/Hg HCO3 (21-28) mmol/L ABG pH (7.35-7.45) ABG Total CO2 (22-28) mmol/L ABG O2 Saturation (95-98) % ABG O2 Content (15-23) ML/dL ABG Base Excess (-2.0-3.0) mmol/L ABG Hemoglobin (11.7-17.4) g/dL ABG Carboxyhemoglobin (0.5-1.5) % POC ABG HHb (Measured) (0.0-5.0) % ABG Methemoglobin (0.0-3.0) % ABG O2 Capacity (16-24) mL/dL Van Test VBG pH (7.32-7.43) VBG pCO2 (40-60) mmHg VBG HCO3 mmol/L VBG Total CO2 (22-28) mmol/L VBG O2 Sat (Calc) (40-65) % VBG Base Excess (0.0-2.0) mmol/L VBG Potassium (3.6-5.2) mmol/L A-a O2 Difference mm/Hg Hgb O2 Saturation (95.0-98.0) % Sodium 140 (132-148) mmol/L Chloride 108 H (98-107) mmol/L Glucose (75-110) mg/dL Lactate (0.7-2.1) mmol/L Vent Mode Mechanical Rate FiO2 % Tidal Volume Crit Value Called To Crit Value Called By Crit Value Read Back Blood Gas Notified Time Potassium 3.7 (3.6-5.0) MMOL/L Carbon Dioxide 22 (22-30) mmol/L Anion Gap 14 (10-20) BUN 36 H (9-20) mg/dl Creatinine 3.3 H (0.8-1.5) mg/dl Est GFR ( Amer) 22 Est GFR (Non-Af Amer) 18 POC Glucose (mg/dL) 152 H (65-110) mg/dL Random Glucose 131 H (75-110) mg/dL Lactic Acid (0.7-2.1) mmol/L Calcium 6.6 L (8.4-10.2) mg/dL Phosphorus 4.1 (2.5-4.5) mg/dl Magnesium 1.7 (1.6-2.3) MG/DL Total Bilirubin 2.3 H (0.2-1.3) mg/dl AST 1335 H (17-59) U/L ALT 587 H D (21-72) U/L Alkaline Phosphatase 70 (38-126) U/L Total Protein 5.5 L (6.3-8.2) G/DL Albumin 2.4 L (3.5-5.0) g/dL Globulin 3.1 (2.2-3.9) gm/dL Albumin/Globulin Ratio 0.8 L (1.0-2.1) Venous Blood Potassium (3.6-5.2) mmol/L Urine Color (YELLOW) Urine Clarity (Clear) Urine pH (5.0-8.0) Ur Specific [place] (1.003-1.030) Urine Protein (NEGATIVE) mg/dL Urine Glucose (UA) (NEGATIVE) mg/dL Urine Ketones (NEGATIVE) mg/dL Urine Blood (NEGATIVE) Urine Nitrate (NEGATIVE) Urine Bilirubin (NEGATIVE) Urine Urobilinogen (0.2-1.0) mg/dL Ur Leukocyte Esterase (Negative) Cornelio/uL Urine RBC (Auto) (0-3) /hpf Urine Microscopic WBC (0-5) /hpf Ur Squamous Epith Cells (0-5) /hpf Urine Bacteria (<OCC) Urine Osmolality (300-1000) mosm/kg Ur Random Creatinine mg/dL Ur Random Sodium meq/L Ur Random Potassium mmol/L Stool Occult Blood (NEGATIVE) 07/10/18 07/10/18 07/10/18 Range/Units 17:25 17:25 17:25 WBC 18.8 H (4.8-10.8) K/uL RBC 2.80 L (4.40-5.90) Mil/uL Hgb 8.3 L (12.0-18.0) g/dL Hct 25.1 L (35.0-51.0) % MCV 89.6 (80.0-94.0) fl MCH 29.7 (27.0-31.0) pg MCHC 33.1 (33.0-37.0) g/dL RDW 15.9 H (11.5-14.5) % Plt Count 70 L D (130-400) K/uL MPV (7.2-11.7) fl Neut % (Auto) (50.0-75.0) % Lymph % (Auto) (20.0-40.0) % [place] % (Auto) (0.0-10.0) % Eos % (Auto) (0.0-4.0) % Baso % (Auto) (0.0-2.0) % Neut # (Auto) (1.8-7.0) K/uL Lymph # (Auto) (1.0-4.3) K/uL [place] # (Auto) (0.0-0.8) K/uL Eos # (Auto) (0.0-0.7) K/uL Baso # (Auto) (0.0-0.2) K/uL Total Counted Neutrophils % (Manual) Band Neutrophils % Lymphocytes % (Manual) Reactive Lymphs % Monocytes % (Manual) Eosinophils % (Manual) Basophils % (Manual) Metamyelocytes % Myelocytes % Promyelocytes % Blast Cells % Plasma Cell % (Manual) Nucleated RBC % Hypersegmented Polys Smudge Cells Toxic Granulation Dohle Bodies Jose Rods Platelet Estimate Plt Clumps, EDTA Large Platelets Giant Platelets RBC Morphology Polychromasia Hypochromasia (manual) Poikilocytosis (manual Basophilic Stippling Anisocytosis (manual) Microcytosis (manual) Macrocytosis (manual) Spherocytes Sickle Cells Target Cells Tear Drop Cells Ovalocytes Stomatocytes Helmet Cells Gaines-Herndon Bodies [employer] Cells Acanthocytes (Spur) Rouleaux Schistocytes pCO2 (35-45) mm/Hg pO2 (30-55) mm/Hg HCO3 (21-28) mmol/L ABG pH (7.35-7.45) ABG Total CO2 (22-28) mmol/L ABG O2 Saturation (95-98) % ABG O2 Content (15-23) ML/dL ABG Base Excess (-2.0-3.0) mmol/L ABG Hemoglobin (11.7-17.4) g/dL ABG Carboxyhemoglobin (0.5-1.5) % POC ABG HHb (Measured) (0.0-5.0) % ABG Methemoglobin (0.0-3.0) % ABG O2 Capacity (16-24) mL/dL Van Test VBG pH (7.32-7.43) VBG pCO2 (40-60) mmHg VBG HCO3 mmol/L VBG Total CO2 (22-28) mmol/L VBG O2 Sat (Calc) (40-65) % VBG Base Excess (0.0-2.0) mmol/L VBG Potassium (3.6-5.2) mmol/L A-a O2 Difference mm/Hg Hgb O2 Saturation (95.0-98.0) % Sodium (132-148) mmol/L Chloride (98-107) mmol/L Glucose (75-110) mg/dL Lactate (0.7-2.1) mmol/L Vent Mode Mechanical Rate FiO2 % Tidal Volume Crit Value Called To Crit Value Called By Crit Value Read Back Blood Gas Notified Time Potassium (3.6-5.0) MMOL/L Carbon Dioxide (22-30) mmol/L Anion Gap (10-20) BUN (9-20) mg/dl Creatinine (0.8-1.5) mg/dl Est GFR ( Amer) Est GFR (Non-Af Amer) POC Glucose (mg/dL) (65-110) mg/dL Random Glucose (75-110) mg/dL Lactic Acid 3.0 H (0.7-2.1) mmol/L Calcium (8.4-10.2) mg/dL Phosphorus (2.5-4.5) mg/dl Magnesium (1.6-2.3) MG/DL Total Bilirubin (0.2-1.3) mg/dl AST (17-59) U/L ALT (21-72) U/L Alkaline Phosphatase (38-126) U/L Total Protein (6.3-8.2) G/DL Albumin (3.5-5.0) g/dL Globulin (2.2-3.9) gm/dL Albumin/Globulin Ratio (1.0-2.1) Venous Blood Potassium (3.6-5.2) mmol/L Urine Color (YELLOW) Urine Clarity (Clear) Urine pH (5.0-8.0) Ur Specific [place] (1.003-1.030) Urine Protein (NEGATIVE) mg/dL Urine Glucose (UA) (NEGATIVE) mg/dL Urine Ketones (NEGATIVE) mg/dL Urine Blood (NEGATIVE) Urine Nitrate (NEGATIVE) Urine Bilirubin (NEGATIVE) Urine Urobilinogen (0.2-1.0) mg/dL Ur Leukocyte Esterase (Negative) Cornelio/uL Urine RBC (Auto) (0-3) /hpf Urine Microscopic WBC (0-5) /hpf Ur Squamous Epith Cells (0-5) /hpf Urine Bacteria (<OCC) Urine Osmolality (300-1000) mosm/kg Ur Random Creatinine mg/dL Ur Random Sodium 138 meq/L Ur Random Potassium 45.4 mmol/L Stool Occult Blood (NEGATIVE) 07/10/18 07/10/18 07/10/18 Range/Units 16:17 15:34 15:00 WBC (4.8-10.8) K/uL RBC (4.40-5.90) Mil/uL Hgb (12.0-18.0) g/dL Hct (35.0-51.0) % MCV (80.0-94.0) fl MCH (27.0-31.0) pg MCHC (33.0-37.0) g/dL RDW (11.5-14.5) % Plt Count (130-400) K/uL MPV (7.2-11.7) fl Neut % (Auto) (50.0-75.0) % Lymph % (Auto) (20.0-40.0) % [place] % (Auto) (0.0-10.0) % Eos % (Auto) (0.0-4.0) % Baso % (Auto) (0.0-2.0) % Neut # (Auto) (1.8-7.0) K/uL Lymph # (Auto) (1.0-4.3) K/uL [place] # (Auto) (0.0-0.8) K/uL Eos # (Auto) (0.0-0.7) K/uL Baso # (Auto) (0.0-0.2) K/uL Total Counted Neutrophils % (Manual) Band Neutrophils % Lymphocytes % (Manual) Reactive Lymphs % Monocytes % (Manual) Eosinophils % (Manual) Basophils % (Manual) Metamyelocytes % Myelocytes % Promyelocytes % Blast Cells % Plasma Cell % (Manual) Nucleated RBC % Hypersegmented Polys Smudge Cells Toxic Granulation Dohle Bodies Jose Rods Platelet Estimate Plt Clumps, EDTA Large Platelets Giant Platelets RBC Morphology Polychromasia Hypochromasia (manual) Poikilocytosis (manual Basophilic Stippling Anisocytosis (manual) Microcytosis (manual) Macrocytosis (manual) Spherocytes Sickle Cells Target Cells Tear Drop Cells Ovalocytes Stomatocytes Helmet Cells Gaines-Herndon Bodies Sindi Cells Acanthocytes (Spur) Rouleaux Schistocytes pCO2 (35-45) mm/Hg pO2 (30-55) mm/Hg HCO3 (21-28) mmol/L ABG pH (7.35-7.45) ABG Total CO2 (22-28) mmol/L ABG O2 Saturation (95-98) % ABG O2 Content (15-23) ML/dL ABG Base Excess (-2.0-3.0) mmol/L ABG Hemoglobin (11.7-17.4) g/dL ABG Carboxyhemoglobin (0.5-1.5) % POC ABG HHb (Measured) (0.0-5.0) % ABG Methemoglobin (0.0-3.0) % ABG O2 Capacity (16-24) mL/dL Van Test VBG pH (7.32-7.43) VBG pCO2 (40-60) mmHg VBG HCO3 mmol/L VBG Total CO2 (22-28) mmol/L VBG O2 Sat (Calc) (40-65) % VBG Base Excess (0.0-2.0) mmol/L VBG Potassium (3.6-5.2) mmol/L A-a O2 Difference mm/Hg Hgb O2 Saturation (95.0-98.0) % Sodium (132-148) mmol/L Chloride (98-107) mmol/L Glucose (75-110) mg/dL Lactate (0.7-2.1) mmol/L Vent Mode Mechanical Rate FiO2 % Tidal Volume Crit Value Called To Crit Value Called By Crit Value Read Back Blood Gas Notified Time Potassium (3.6-5.0) MMOL/L Carbon Dioxide (22-30) mmol/L Anion Gap (10-20) BUN (9-20) mg/dl Creatinine (0.8-1.5) mg/dl Est GFR ( Amer) Est GFR (Non-Af Amer) POC Glucose (mg/dL) 172 H (65-110) mg/dL Random Glucose (75-110) mg/dL Lactic Acid (0.7-2.1) mmol/L Calcium (8.4-10.2) mg/dL Phosphorus (2.5-4.5) mg/dl Magnesium (1.6-2.3) MG/DL Total Bilirubin (0.2-1.3) mg/dl AST (17-59) U/L ALT (21-72) U/L Alkaline Phosphatase (38-126) U/L Total Protein (6.3-8.2) G/DL Albumin (3.5-5.0) g/dL Globulin (2.2-3.9) gm/dL Albumin/Globulin Ratio (1.0-2.1) Venous Blood Potassium (3.6-5.2) mmol/L Urine Color Yellow (YELLOW) Urine Clarity Turbid (Clear) Urine pH 6.0 (5.0-8.0) Ur Specific [place] 1.018 (1.003-1.030) Urine Protein >=500 (NEGATIVE) mg/dL Urine Glucose (UA) 50 (NEGATIVE) mg/dL Urine Ketones Negative (NEGATIVE) mg/dL Urine Blood Large (NEGATIVE) Urine Nitrate Negative (NEGATIVE) Urine Bilirubin Negative (NEGATIVE) Urine Urobilinogen 0.2-1.0 (0.2-1.0) mg/dL Ur Leukocyte Esterase Large (Negative) Cornelio/uL Urine RBC (Auto) 274 H (0-3) /hpf Urine Microscopic WBC 316 H (0-5) /hpf Ur Squamous Epith Cells 3 (0-5) /hpf Urine Bacteria Occ H (<OCC) Urine Osmolality (300-1000) mosm/kg Ur Random Creatinine mg/dL Ur Random Sodium meq/L Ur Random Potassium mmol/L Stool Occult Blood Positive H (NEGATIVE) 07/10/18 07/10/18 Range/Units 13:05 11:03 WBC (4.8-10.8) K/uL RBC (4.40-5.90) Mil/uL Hgb (12.0-18.0) g/dL Hct (35.0-51.0) % MCV (80.0-94.0) fl MCH (27.0-31.0) pg MCHC (33.0-37.0) g/dL RDW (11.5-14.5) % Plt Count (130-400) K/uL MPV (7.2-11.7) fl Neut % (Auto) (50.0-75.0) % Lymph % (Auto) (20.0-40.0) % [place] % (Auto) (0.0-10.0) % Eos % (Auto) (0.0-4.0) % Baso % (Auto) (0.0-2.0) % Neut # (Auto) (1.8-7.0) K/uL Lymph # (Auto) (1.0-4.3) K/uL [place] # (Auto) (0.0-0.8) K/uL Eos # (Auto) (0.0-0.7) K/uL Baso # (Auto) (0.0-0.2) K/uL Total Counted Neutrophils % (Manual) Band Neutrophils % Lymphocytes % (Manual) Reactive Lymphs % Monocytes % (Manual) Eosinophils % (Manual) Basophils % (Manual) Metamyelocytes % Myelocytes % Promyelocytes % Blast Cells % Plasma Cell % (Manual) Nucleated RBC % Hypersegmented Polys Smudge Cells Toxic Granulation Dohle Bodies Jose Rods Platelet Estimate Plt Clumps, EDTA Large Platelets Giant Platelets RBC Morphology Polychromasia Hypochromasia (manual) Poikilocytosis (manual Basophilic Stippling Anisocytosis (manual) Microcytosis (manual) Macrocytosis (manual) Spherocytes Sickle Cells Target Cells Tear Drop Cells Ovalocytes Stomatocytes Helmet Cells [place]aines-[place] Bodies Sindi Cells Acanthocytes (Spur) Rouleaux Schistocytes pCO2 (35-45) mm/Hg pO2 33 (30-55) mm/Hg HCO3 (21-28) mmol/L ABG pH (7.35-7.45) ABG Total CO2 (22-28) mmol/L ABG O2 Saturation (95-98) % ABG O2 Content (15-23) ML/dL ABG Base Excess (-2.0-3.0) mmol/L ABG Hemoglobin (11.7-17.4) g/dL ABG Carboxyhemoglobin (0.5-1.5) % POC ABG HHb (Measured) (0.0-5.0) % ABG Methemoglobin (0.0-3.0) % ABG O2 Capacity (16-24) mL/dL Van Test VBG pH 7.40 (7.32-7.43) VBG pCO2 33 L (40-60) mmHg VBG HCO3 21.2 mmol/L VBG Total CO2 21.4 L (22-28) mmol/L VBG O2 Sat (Calc) 73.7 H (40-65) % VBG Base Excess -3.6 L (0.0-2.0) mmol/L VBG Potassium 3.3 L (3.6-5.2) mmol/L A-a O2 Difference mm/Hg Hgb O2 Saturation (95.0-98.0) % Sodium 140.0 (132-148) mmol/L Chloride 107.0 (98-107) mmol/L Glucose 232 H (75-110) mg/dL Lactate 5.7 H* (0.7-2.1) mmol/L Vent Mode Mechanical Rate FiO2 50.0 % Tidal Volume Crit Value Called To Irma dawn Crit Value Called By Yessica Crit Value Read Back Y Blood Gas Notified Time 1315 Potassium (3.6-5.0) MMOL/L Carbon Dioxide (22-30) mmol/L Anion Gap (10-20) BUN (9-20) mg/dl Creatinine (0.8-1.5) mg/dl Est GFR ( Amer) Est GFR (Non-Af Amer) POC Glucose (mg/dL) 209 H (65-110) mg/dL Random Glucose (75-110) mg/dL Lactic Acid (0.7-2.1) mmol/L Calcium (8.4-10.2) mg/dL Phosphorus (2.5-4.5) mg/dl Magnesium (1.6-2.3) MG/DL Total Bilirubin (0.2-1.3) mg/dl AST (17-59) U/L ALT (21-72) U/L Alkaline Phosphatase (38-126) U/L Total Protein (6.3-8.2) G/DL Albumin (3.5-5.0) g/dL Globulin (2.2-3.9) gm/dL Albumin/Globulin Ratio (1.0-2.1) Venous Blood Potassium 3.3 L (3.6-5.2) mmol/L Urine Color (YELLOW) Urine Clarity (Clear) Urine pH (5.0-8.0) Ur Specific [place] (1.003-1.030) Urine Protein (NEGATIVE) mg/dL Urine Glucose (UA) (NEGATIVE) mg/dL Urine Ketones (NEGATIVE) mg/dL Urine Blood (NEGATIVE) Urine Nitrate (NEGATIVE) Urine Bilirubin (NEGATIVE) Urine Urobilinogen (0.2-1.0) mg/dL Ur Leukocyte Esterase (Negative) Cornelio/uL Urine RBC (Auto) (0-3) /hpf Urine Microscopic WBC (0-5) /hpf Ur Squamous Epith Cells (0-5) /hpf Urine Bacteria (<OCC) Urine Osmolality (300-1000) mosm/kg Ur Random Creatinine mg/dL Ur Random Sodium meq/L Ur Random Potassium mmol/L Stool Occult Blood (NEGATIVE) Laboratory Results - last 24 hr 07/10/18 07/10/18 07/10/18 11:03 13:05 15:00 WBC RBC Hgb Hct MCV MCH MCHC RDW Plt Count MPV Neut % (Auto) Lymph % (Auto) [place] % (Auto) Eos % (Auto) Baso % (Auto) Neut # (Auto) Lymph # (Auto) [place] # (Auto) Eos # (Auto) Baso # (Auto) Total Counted Neutrophils % (Manual) Band Neutrophils % Lymphocytes % (Manual) Reactive Lymphs % Monocytes % (Manual) Eosinophils % (Manual) Basophils % (Manual) Metamyelocytes % Myelocytes % Promyelocytes % Blast Cells % Plasma Cell % (Manual) Nucleated RBC % Hypersegmented Polys Smudge Cells Toxic Granulation Dohle Bodies Jose Rods Platelet Estimate Plt Clumps, EDTA Large Platelets Giant Platelets RBC Morphology Polychromasia Hypochromasia (manual) Poikilocytosis (manual Basophilic Stippling Anisocytosis (manual) Microcytosis (manual) Macrocytosis (manual) Spherocytes Sickle Cells Target Cells Tear Drop Cells Ovalocytes Stomatocytes Helmet Cells [place] Bodies Sindi Cells Acanthocytes (Spur) Rouleaux Schistocytes pCO2 pO2 33 HCO3 ABG pH ABG Total CO2 ABG O2 Saturation ABG O2 Content ABG Base Excess ABG Hemoglobin ABG Carboxyhemoglobin POC ABG HHb (Measured) ABG Methemoglobin ABG O2 Capacity Van Test VBG pH 7.40 VBG pCO2 33 L VBG HCO3 21.2 VBG Total CO2 21.4 L VBG O2 Sat (Calc) 73.7 H VBG Base Excess -3.6 L VBG Potassium 3.3 L A-a O2 Difference Hgb O2 Saturation Sodium 140.0 Chloride 107.0 Glucose 232 H Lactate 5.7 H* Vent Mode Mechanical Rate FiO2 50.0 Tidal Volume Crit Value Called To Irma dawn Crit Value Called By 23 Crit Value Read Back Y Blood Gas Notified Time 1315 Potassium Carbon Dioxide Anion Gap BUN Creatinine Est GFR ( Amer) Est GFR (Non-Af Amer) POC Glucose (mg/dL) 209 H Random Glucose Lactic Acid Calcium Phosphorus Magnesium Total Bilirubin AST ALT Alkaline Phosphatase Total Protein Albumin Globulin Albumin/Globulin Ratio Venous Blood Potassium 3.3 L Urine Color Urine Clarity Urine pH Ur Specific [place] Urine Protein Urine Glucose (UA) Urine Ketones Urine Blood Urine Nitrate Urine Bilirubin Urine Urobilinogen Ur Leukocyte Esterase Urine RBC (Auto) Urine Microscopic WBC Ur Squamous Epith Cells Urine Bacteria Urine Osmolality Ur Random Creatinine Ur Random Sodium Ur Random Potassium Stool Occult Blood Positive H 0507/10/18 07/10/18 15:34 16:17 17:25 WBC 18.8 H RBC 2.80 L Hgb 8.3 L Hct 25.1 L MCV 89.6 MCH 29.7 MCHC 33.1 RDW 15.9 H Plt Count 70 L D MPV Neut % (Auto) Lymph % (Auto) [place] % (Auto) Eos % (Auto) Baso % (Auto) Neut # (Auto) Lymph # (Auto) [place] # (Auto) Eos # (Auto) Baso # (Auto) Total Counted Neutrophils % (Manual) Band Neutrophils % Lymphocytes % (Manual) Reactive Lymphs % Monocytes % (Manual) Eosinophils % (Manual) Basophils % (Manual) Metamyelocytes % Myelocytes % Promyelocytes % Blast Cells % Plasma Cell % (Manual) Nucleated RBC % Hypersegmented Polys Smudge Cells Toxic Granulation Dohle Bodies Jose Rods Platelet Estimate Plt Clumps, EDTA Large Platelets Giant Platelets RBC Morphology Polychromasia Hypochromasia (manual) Poikilocytosis (manual Basophilic Stippling Anisocytosis (manual) Microcytosis (manual) Macrocytosis (manual) Spherocytes Sickle Cells Target Cells Tear Drop Cells Ovalocytes Stomatocytes Helmet Cells [place] Bodies [employer] Cells Acanthocytes (Spur) Rouleaux Schistocytes pCO2 pO2 HCO3 ABG pH ABG Total CO2 ABG O2 Saturation ABG O2 Content ABG Base Excess ABG Hemoglobin ABG Carboxyhemoglobin POC ABG HHb (Measured) ABG Methemoglobin ABG O2 Capacity Van Test VBG pH VBG pCO2 VBG HCO3 VBG Total CO2 VBG O2 Sat (Calc) VBG Base Excess VBG Potassium A-a O2 Difference Hgb O2 Saturation Sodium Chloride Glucose Lactate Vent Mode Mechanical Rate FiO2 Tidal Volume Crit Value Called To Crit Value Called By Crit Value Read Back Blood Gas Notified Time Potassium Carbon Dioxide Anion Gap BUN Creatinine Est GFR ( Amer) Est GFR (Non-Af Amer) POC Glucose (mg/dL) 172 H Random Glucose Lactic Acid Calcium Phosphorus Magnesium Total Bilirubin AST ALT Alkaline Phosphatase Total Protein Albumin Globulin Albumin/Globulin Ratio Venous Blood Potassium Urine Color Yellow Urine Clarity Turbid Urine pH 6.0 Ur Specific [place] 1.018 Urine Protein >=500 Urine Glucose (UA) 50 Urine Ketones Negative Urine Blood Large Urine Nitrate Negative Urine Bilirubin Negative Urine Urobilinogen 0.2-1.0 Ur Leukocyte Esterase Large Urine RBC (Auto) 274 H Urine Microscopic WBC 316 H Ur Squamous Epith Cells 3 Urine Bacteria Occ H Urine Osmolality Ur Random Creatinine Ur Random Sodium Ur Random Potassium Stool Occult Blood 07/10/18 07/10/18 07/10/18 17:25 17:25 20:44 WBC RBC Hgb Hct MCV MCH MCHC RDW Plt Count MPV Neut % (Auto) Lymph % (Auto) [place] % (Auto) Eos % (Auto) Baso % (Auto) Neut # (Auto) Lymph # (Auto) [place] # (Auto) Eos # (Auto) Baso # (Auto) Total Counted Neutrophils % (Manual) Band Neutrophils % Lymphocytes % (Manual) Reactive Lymphs % Monocytes % (Manual) Eosinophils % (Manual) Basophils % (Manual) Metamyelocytes % Myelocytes % Promyelocytes % Blast Cells % Plasma Cell % (Manual) Nucleated RBC % Hypersegmented Polys Smudge Cells Toxic Granulation Dohle Bodies Jose Rods Platelet Estimate Plt Clumps, EDTA Large Platelets Giant Platelets RBC Morphology Polychromasia Hypochromasia (manual) Poikilocytosis (manual Basophilic Stippling Anisocytosis (manual) Microcytosis (manual) Macrocytosis (manual) Spherocytes Sickle Cells Target Cells Tear Drop Cells Ovalocytes Stomatocytes Helmet Cells [place] Bodies [employer] Cells Acanthocytes (Spur) Rouleaux Schistocytes pCO2 pO2 HCO3 ABG pH ABG Total CO2 ABG O2 Saturation ABG O2 Content ABG Base Excess ABG Hemoglobin ABG Carboxyhemoglobin POC ABG HHb (Measured) ABG Methemoglobin ABG O2 Capacity Van Test VBG pH VBG pCO2 VBG HCO3 VBG Total CO2 VBG O2 Sat (Calc) VBG Base Excess VBG Potassium A-a O2 Difference Hgb O2 Saturation Sodium Chloride Glucose Lactate Vent Mode Mechanical Rate FiO2 Tidal Volume Crit Value Called To Crit Value Called By Crit Value Read Back Blood Gas Notified Time Potassium Carbon Dioxide Anion Gap BUN Creatinine Est GFR ( Amer) Est GFR (Non-Af Amer) POC Glucose (mg/dL) 152 H Random Glucose Lactic Acid 3.0 H Calcium Phosphorus Magnesium Total Bilirubin AST ALT Alkaline Phosphatase Total Protein Albumin Globulin Albumin/Globulin Ratio Venous Blood Potassium Urine Color Urine Clarity Urine pH Ur Specific [place] Urine Protein Urine Glucose (UA) Urine Ketones Urine Blood Urine Nitrate Urine Bilirubin Urine Urobilinogen Ur Leukocyte Esterase Urine RBC (Auto) Urine Microscopic WBC Ur Squamous Epith Cells Urine Bacteria Urine Osmolality Ur Random Creatinine Ur Random Sodium 138 Ur Random Potassium 45.4 Stool Occult Blood 07/11/18 07/11/18 07/11/18 04:10 04:10 04:55 WBC 18.2 H RBC 2.72 L Hgb 8.2 L Hct 24.3 L MCV 89.3 MCH 30.0 MCHC 33.6 RDW 15.8 H Plt Count 56 L MPV 8.3 Neut % (Auto) 91.2 H Lymph % (Auto) 4.8 L [place] % (Auto) 2.5 Eos % (Auto) 1.1 Baso % (Auto) 0.4 Neut # (Auto) 16.6 H Lymph # (Auto) 0.9 L [place] # (Auto) 0.5 Eos # (Auto) 0.2 Baso # (Auto) 0.1 Total Counted Cancelled Neutrophils % (Manual) Cancelled Band Neutrophils % Cancelled Lymphocytes % (Manual) Cancelled Reactive Lymphs % Cancelled Monocytes % (Manual) Cancelled Eosinophils % (Manual) Cancelled Basophils % (Manual) Cancelled Metamyelocytes % Cancelled Myelocytes % Cancelled Promyelocytes % Cancelled Blast Cells % Cancelled Plasma Cell % (Manual) Cancelled Nucleated RBC % Cancelled Hypersegmented Polys Cancelled Smudge Cells Cancelled Toxic Granulation Cancelled Dohle Bodies Cancelled Jose Rods Cancelled Platelet Estimate Cancelled Plt Clumps, EDTA Cancelled Large Platelets Cancelled Giant Platelets Cancelled RBC Morphology Cancelled Polychromasia Cancelled Hypochromasia (manual) Cancelled Poikilocytosis (manual Cancelled Basophilic Stippling Cancelled Anisocytosis (manual) Cancelled Microcytosis (manual) Cancelled Macrocytosis (manual) Cancelled Spherocytes Cancelled Sickle Cells Cancelled Target Cells Cancelled Tear Drop Cells Cancelled Ovalocytes Cancelled Stomatocytes Cancelled Helmet Cells Cancelled [place] Bodies Cancelled [employer] Cells Cancelled Acanthocytes (Spur) Cancelled Rouleaux Cancelled Schistocytes Cancelled pCO2 28 L pO2 203 H HCO3 22.0 ABG pH 7.45 ABG Total CO2 20.4 L ABG O2 Saturation 100.9 H ABG O2 Content 12.3 L ABG Base Excess -3.8 L ABG Hemoglobin 8.6 L ABG Carboxyhemoglobin 1.9 H POC ABG HHb (Measured) -0.9 L ABG Methemoglobin 1.5 ABG O2 Capacity 12.2 L Van Test Yes VBG pH VBG pCO2 VBG HCO3 VBG Total CO2 VBG O2 Sat (Calc) VBG Base Excess VBG Potassium A-a O2 Difference 190.0 Hgb O2 Saturation 97.5 Sodium 140 Chloride 108 H Glucose Lactate Vent Mode A/c Mechanical Rate 12 FiO2 60.0 Tidal Volume 450 Crit Value Called To Crit Value Called By Crit Value Read Back Blood Gas Notified Time Potassium 3.7 Carbon Dioxide 22 Anion Gap 14 BUN 36 H Creatinine 3.3 H Est GFR ( Amer) 22 Est GFR (Non-Af Amer) 18 POC Glucose (mg/dL) Random Glucose 131 H Lactic Acid Calcium 6.6 L Phosphorus 4.1 Magnesium 1.7 Total Bilirubin 2.3 H AST 1335 H ALT 587 H D Alkaline Phosphatase 70 Total Protein 5.5 L Albumin 2.4 L Globulin 3.1 Albumin/Globulin Ratio 0.8 L Venous Blood Potassium Urine Color Urine Clarity Urine pH Ur Specific [place] Urine Protein Urine Glucose (UA) Urine Ketones Urine Blood Urine Nitrate Urine Bilirubin Urine Urobilinogen Ur Leukocyte Esterase Urine RBC (Auto) Urine Microscopic WBC Ur Squamous Epith Cells Urine Bacteria Urine Osmolality Ur Random Creatinine Ur Random Sodium Ur Random Potassium Stool Occult Blood 07/11/18 07/11/18 06:48 11:40 WBC RBC Hgb Hct MCV MCH MCHC RDW Plt Count MPV Neut % (Auto) Lymph % (Auto) [place] % (Auto) Eos % (Auto) Baso % (Auto) Neut # (Auto) Lymph # (Auto) [place] # (Auto) Eos # (Auto) Baso # (Auto) Total Counted Neutrophils % (Manual) Band Neutrophils % Lymphocytes % (Manual) Reactive Lymphs % Monocytes % (Manual) Eosinophils % (Manual) Basophils % (Manual) Metamyelocytes % Myelocytes % Promyelocytes % Blast Cells % Plasma Cell % (Manual) Nucleated RBC % Hypersegmented Polys Smudge Cells Toxic Granulation Dohle Bodies Jose Rods Platelet Estimate Plt Clumps, EDTA Large Platelets Giant Platelets RBC Morphology Polychromasia Hypochromasia (manual) Poikilocytosis (manual Basophilic Stippling Anisocytosis (manual) Microcytosis (manual) Macrocytosis (manual) Spherocytes Sickle Cells Target Cells Tear Drop Cells Ovalocytes Stomatocytes Helmet Cells [place] Bodies [employer] Cells Acanthocytes (Spur) Rouleaux Schistocytes pCO2 pO2 HCO3 ABG pH ABG Total CO2 ABG O2 Saturation ABG O2 Content ABG Base Excess ABG Hemoglobin ABG Carboxyhemoglobin POC ABG HHb (Measured) ABG Methemoglobin ABG O2 Capacity Van Test VBG pH VBG pCO2 VBG HCO3 VBG Total CO2 VBG O2 Sat (Calc) VBG Base Excess VBG Potassium A-a O2 Difference Hgb O2 Saturation Sodium Chloride Glucose Lactate Vent Mode Mechanical Rate FiO2 Tidal Volume Crit Value Called To Crit Value Called By Crit Value Read Back Blood Gas Notified Time Potassium Carbon Dioxide Anion Gap BUN Creatinine Est GFR ( Amer) Est GFR (Non-Af Amer) POC Glucose (mg/dL) 140 H Random Glucose Lactic Acid Calcium Phosphorus Magnesium Total Bilirubin AST ALT Alkaline Phosphatase Total Protein Albumin Globulin Albumin/Globulin Ratio Venous Blood Potassium Urine Color Urine Clarity Urine pH Ur Specific [place] Urine Protein Urine Glucose (UA) Urine Ketones Urine Blood Urine Nitrate Urine Bilirubin Urine Urobilinogen Ur Leukocyte Esterase Urine RBC (Auto) Urine Microscopic WBC Ur Squamous Epith Cells Urine Bacteria Urine Osmolality 303 Ur Random Creatinine 18.7 Ur Random Sodium 113 Ur Random Potassium Stool Occult Blood Radiology Impressions: Radiology Impressions Chest X-Ray 07/11/18 06:00 IMPRESSION: Worsening multifocal infiltrates/pulmonary edema. EKG/Cardiology Studies: Cardiology / EKG Studies 07/11/18 09:00 EKG [ELECTROCARDIOGRAM] DAILY Comment: Mode Of Transportation: Reason For Exam: SVT versus Sinus tachy Fingerstick Blood Sugar Results: 155
--- NOTE | 2018-07-11 14:28 | CT ---
Date of service: 07/11/2018 PROCEDURE: CT HEAD WITHOUT CONTRAST. HISTORY: anoxic brain injury COMPARISON: None TECHNIQUE: Axial computed tomography images were obtained through the head/brain without intravenous contrast. Supplemental Coronal and Sagittal projections created and reviewed. Radiation dose: Total exam DLP = 947.65 mGy-cm. This CT exam was performed using one or more of the following dose reduction techniques: Automated exposure control, adjustment of the mA and/or kV according to patient size, and/or use of iterative reconstruction technique. FINDINGS: HEMORRHAGE: No intracranial hemorrhage. BRAIN: Cortical atrophy, periventricular small vessel disease. VENTRICLES: Unremarkable. No hydrocephalus. CALVARIUM: Unremarkable. PARANASAL SINUSES: Unremarkable as visualized. No significant inflammatory changes. MASTOID AIR CELLS: Unremarkable as visualized. No inflammatory changes. OTHER FINDINGS: None. IMPRESSION: No acute intracranial abnormalities. No significant findings to account for the clinical presentation.
[2018-07-11] MEDS ORDERED: Chlorhexidine Gluconate 1 APPL/PKT TP ONE (17:16)
--- NOTE | 2018-07-11 18:22 | RAD ---
Date of service: 07/11/2018 HISTORY: s/p NG tube placement COMPARISON: July 11, 2018. Study performed 07:12. FINDINGS: LUNGS: Stable multifocal infiltrates. PLEURA: No significant pleural effusion identified, no pneumothorax apparent. CARDIOVASCULAR: Atherosclerotic calcifications identified primarily aortic arch. Position/ configuration of pacemaker OSSEOUS STRUCTURES: No significant abnormalities. VISUALIZED UPPER ABDOMEN: Normal. OTHER FINDINGS: Stable position of endotracheal tube. Satisfactory position of recently placed nasogastric tube, coursing through the esophagus the tip is in the body of the stomach. IMPRESSION: Satisfactory position of recently placed nasogastric tube. Otherwise no interval change.
[2018-07-11] MEDS: Latanoprost 0.005% Opht SOUTION OD SCH (21:12)
--- NOTE | 2018-07-11 21:57 | CP.PCM.PN ---
Subjective - Date & Time of Evaluation Date of Evaluation: 07/11/18 Time of Evaluation: 21:54 - Subjective Subjective: I D NOTE LOW GRADE TEMPS STILLINTUBATED,UNRESPONSIVE WBC:18 NO CHANGE IN RX Objective - Vital Signs/Intake and Output Vital Signs (last 24 hours): Temp Pulse Resp BP Pulse Ox 99.3 F 132 H 17 137/82 100 07/11/18 18:00 07/11/18 21:15 07/11/18 18:00 07/11/18 21:15 07/11/18 18:00 Intake and Output: 07/11/18 07/12/18 18:59 06:59 Intake Total 280 Output Total 40 Balance 240 - Medications Medications: Current Medications Enoxaparin Sodium (Lovenox) 30 mg SC DAILY [facility]; Protocol Last Admin: 07/08/18 09:10 Dose: 30 mg Piperacillin Sod/Tazobactam (Sod 2.25 gm/ Sodium Chloride) 100 mls @ 100 mls/hr IVPB Q12 ANTONY; Protocol Last Admin: 07/11/18 21:10 Dose: 100 mls/hr Meropenem 500 mg/ Sodium (Chloride) 100 mls @ 100 mls/hr IVPB Q12H ANTONY; Protocol Last Admin: 07/11/18 12:20 Dose: 100 mls/hr Insulin Human Lispro (Humalog) 0 units SC ACHS ANTONY; Protocol Last Admin: 07/11/18 21:18 Dose: Not Given Ipratropium [place] (Atrovent) 0.5 mg IH RQ6 [facility] Last Admin: 07/11/18 19:27 Dose: Not Given Latanoprost (Xalatan Opht) 1 drop OD HS [facility] Last Admin: 07/11/18 21:12 Dose: 1 drop Metoprolol Tartrate (Lopressor) 150 mg PO Q12@0700,1900 [facility] Last Admin: 07/11/18 21:11 Dose: Not Given Metoprolol Tartrate (Lopressor) 5 mg IVP Q6 [facility] Last Admin: 07/11/18 21:15 Dose: 5 mg Ondansetron HCl (Zofran Inj) 4 mg IVP Q6 PRN PRN Reason: Nausea/Vomiting Pantoprazole Sodium (Protonix Inj) 40 mg IVP DAILY [facility] - Labs Labs: 07/11/18 04:10 07/11/18 04:10 PT 19.6 Seconds (9.8-13.1) H 07/10/18 02:30 INR 1.7 07/10/18 02:30 APTT 47.8 Seconds (25.6-37.1) H 07/10/18 02:30
[2018-07-12] MEDS: Meropenem 500 MG in Sodium Chloride 0.9% 100 ML IVPB SCH ×2 (00:16→12:15)
[2018-07-12] MEDS: Ipratropium 0.02% Inhal Soln (0.5 mg/2.5 ml) UD IH SCH ×4 (02:10→19:08)
[2018-07-12] MEDS: Metoprolol 1 mg/ml Inj IVP SCH ×4 (04:26→21:29)
[2018-07-12 05:09] LABS: INR 1.4; PROTHROMBIN TIME 16.1 Seconds (9.8-13.1)
[2018-07-12 05:11] LABS: PARTIAL THROMBOPLASTIN TIME 35.2 Seconds (25.6-37.1)
[2018-07-12 05:18] LABS: ABG ALLEN TEST YES; ARTERIAL BLOOD GAS HCO3 19.3 mmol/L (21-28); ARTERIAL BLOOD GAS HEMOGLOBIN 9.4 g/dL (11.7-17.4); ARTERIAL BLOOD GAS O2 CAPACITY 13.1 mL/dL (16-24); ARTERIAL BLOOD GAS O2 CONTENT 13.2 ML/dL (15-23); ARTERIAL BLOOD GAS O2 SAT 100.9 % (95-98); ARTERIAL BLOOD GAS PCO2 24 mm/Hg (35-45); ARTERIAL BLOOD GAS PH 7.43 (7.35-7.45); ARTERIAL BLOOD GAS PO2 149 mm/Hg (80-100); ARTERIAL BLOOD GAS TCO2 16.6 mmol/L (22-28)
[2018-07-12] MEDS ORDERED: Acetaminophen 650mg/20.3ml solution UD PO PRN (05:22)
[2018-07-12 05:31] LABS: ALB/GLOB RATIO 0.8 (1.0-2.1); ALBUMIN 2.7 g/dL (3.5-5.0); CALCIUM 6.8 mg/dL (8.4-10.2)
[2018-07-12 05:37] LABS: BASO % 0.2 % (0.0-2.0); EOS # 0.1 K/uL (0.0-0.7); EOS % 0.6 % (0.0-4.0); HEMOGLOBIN 8.8 g/dL (12.0-18.0); MEAN CELL VOLUME 89.1 fl (80.0-94.0); MEAN CORPUSCULAR HEMOGLOBIN 30.1 pg (27.0-31.0); MEAN CORPUSCULAR HGB CONC 33.8 g/dL (33.0-37.0); MEAN PLATELET VOLUME 8.8 fl (7.2-11.7); MONO # 0.7 K/uL (0.0-0.8); MONO % 3.3 % (0.0-10.0); NEUT # 18.8 K/uL (1.8-7.0); NEUT % 90.9 % (50.0-75.0); NRBC % 1.4 % (0.0-0.0); PLATELET COUNT 69 K/uL (130-400); RBC 2.93 Mil/uL (4.40-5.90); RED CELL DISTRIBUTION WIDTH 16.5 % (11.5-14.5); WHITE BLOOD COUNT 20.7 K/uL (4.8-10.8)
[2018-07-12] MEDS: Insulin Lispro (humaLOG) 100 Units/ml Inj SC SCH ×3 (06:54→16:27)
--- NOTE | 2018-07-12 07:20 | CP.CCUPN ---
CCU Subjective - Physician Review Events Since Last Encounter (Free Text): Patient on ventilator, on PRVC TV 450, RR 12, FIO2 40%, no response to any stimuli, no fever, no vomiting, events reviewed CCU Objective - Vital Signs / Intake & Output Vital Signs (Last 4 hours): Vital Signs Temp Pulse Resp BP Pulse Ox 07/12/18 06:00 100.4 F H 132 H 22 159/79 H 100 07/12/18 04:26 129 H 160/91 H 07/12/18 04:00 100.8 F H 132 H 19 158/89 H 100 Intake and Output (Last 8hrs): Intake & Output 07/11/18 07/12/18 07/12/18 22:59 06:59 14:59 Intake Total 110 100 Output Total 30 50 Balance 80 50 Weight 152 lb 3.2 oz Intake: IV 10 0 Intake, Piggyback 100 100 Output: Urine 30 50 Urethral (Villa) 30 50 - Physical Exam Head: Positive for: Atraumatic Pupils: Positive for: Non-Reactive Extroacular Muscles: Negative for: EOMI, Gaze Palsy Mouth: Positive for: Moist Mucous Membranes Nose (External): Positive for: Atraumatic Respiratory/Chest: Positive for: Rhonchi Abdomen: Positive for: Distention, Normal Bowel Sounds, Other (Right sided ecchymosis extending to both upper and lower quadrants. Unable to assess pain. ) Genitourinary Male: Positive for: Testicle Swelling (significant scrotal swelling ) Upper Extremity: Positive for: Capillary Refill < 2s. Negative for: Edema Lower Extremity: Negative for: Edema Neurological: Positive for: Other (on ventilator, no response to any stimuli) Skin: Positive for: Normal Color Psychiatric: Negative for: Alert (GCS3), Oriented x 3 - Medications Active Medications: Active Medications Generic Name Dose Route Start Last Admin Trade Name Freq PRN Reason Stop Dose Admin Acetaminophen 650 mg 07/12/18 05:22 Tylenol 650mg/20.3ml Solution Ud PO Q6 PRN fever Enoxaparin Sodium 30 mg 07/05/18 09:00 07/08/18 09:10 Lovenox SC 30 mg DAILY ANTONY Administration Protocol Piperacillin Sod/Tazobactam 100 mls @ 100 mls/hr 07/10/18 21:00 07/11/18 21:10 Sod 2.25 gm/ Sodium Chloride IVPB 100 mls/hr Q12 ANTONY Administration Protocol Meropenem 500 mg/ Sodium 100 mls @ 100 mls/hr 07/10/18 13:15 07/12/18 00:16 Chloride IVPB 100 mls/hr Q12H ANTONY Administration Protocol Insulin Human Lispro 0 units 07/09/18 07:30 07/12/18 06:54 Humalog SC Not Given ACHS [facility] Protocol Ipratropium [place] 0.5 mg 07/10/18 14:00 07/12/18 02:10 Atrovent IH 0.5 mg RQ6 ANTONY Administration Latanoprost 1 drop 07/04/18 22:00 07/11/18 21:12 Xalatan Opht OD 1 drop HS ANTONY Administration Metoprolol Tartrate 150 mg 07/09/18 21:00 07/11/18 21:11 Lopressor PO Not Given Q12@0700,1900 [facility] Metoprolol Tartrate 5 mg 07/11/18 10:00 07/12/18 04:26 Lopressor IVP 5 mg Q6 ANTONY Administration Ondansetron HCl 4 mg 07/04/18 08:08 Zofran Inj IVP Q6 PRN Nausea/Vomiting Pantoprazole Sodium 40 mg 07/12/18 09:00 Protonix Inj IVP DAILY [facility] - Patient Studies Lab Studies: Microbiology Studies 07/10/18 13:10 Blood Culture - Preliminary Blood-Venous NO GROWTH AFTER 24 HOURS 07/10/18 13:00 Blood Culture - Preliminary Blood-Venous NO GROWTH AFTER 24 HOURS 07/10/18 14:35 Urine Culture - Final Urine,Villa No Growth (<1,000 CFU/ML) Lab Studies 07/12/18 07/12/18 07/12/18 Range/Units 06:06 04:36 04:27 WBC (4.8-10.8) K/uL RBC (4.40-5.90) Mil/uL Hgb (12.0-18.0) g/dL Hct (35.0-51.0) % MCV (80.0-94.0) fl MCH (27.0-31.0) pg MCHC (33.0-37.0) g/dL RDW (11.5-14.5) % Plt Count (130-400) K/uL MPV (7.2-11.7) fl Neut % (Auto) (50.0-75.0) % Lymph % (Auto) (20.0-40.0) % [place] % (Auto) (0.0-10.0) % Eos % (Auto) (0.0-4.0) % Baso % (Auto) (0.0-2.0) % Neut # (Auto) (1.8-7.0) K/uL Lymph # (Auto) (1.0-4.3) K/uL [place] # (Auto) (0.0-0.8) K/uL Eos # (Auto) (0.0-0.7) K/uL Baso # (Auto) (0.0-0.2) K/uL PT (9.8-13.1) Seconds INR APTT (25.6-37.1) Seconds pCO2 24 L (35-45) mm/Hg pO2 149 H (80-100) mm/Hg HCO3 19.3 L (21-28) mmol/L ABG pH 7.43 (7.35-7.45) ABG Total CO2 16.6 L (22-28) mmol/L ABG O2 Saturation 100.9 H (95-98) % ABG O2 Content 13.2 L (15-23) ML/dL ABG Base Excess -7.2 L (-2.0-3.0) mmol/L ABG Hemoglobin 9.4 L (11.7-17.4) g/dL ABG Carboxyhemoglobin 2.1 H (0.5-1.5) % POC ABG HHb (Measured) -0.9 L (0.0-5.0) % ABG Methemoglobin 1.0 (0.0-3.0) % ABG O2 Capacity 13.1 L (16-24) mL/dL Van Test Yes A-a O2 Difference 106.0 mm/Hg Hgb O2 Saturation 97.8 (95.0-98.0) % Vent Mode A/c Mechanical Rate 12 FiO2 40.0 % Tidal Volume 450 PEEP 5 Sodium 141 (132-148) mmol/l Potassium 4.0 (3.6-5.0) MMOL/L Chloride 109 H (98-107) mmol/L Carbon Dioxide 18 L (22-30) mmol/L Anion Gap 18 (10-20) BUN 55 H (9-20) mg/dl Creatinine 4.7 H (0.8-1.5) mg/dl Est GFR ( Amer) 15 Est GFR (Non-Af Amer) 12 POC Glucose (mg/dL) 141 H (65-110) mg/dL Random Glucose 138 H (75-110) mg/dL Calcium 6.8 L (8.4-10.2) mg/dL Phosphorus 5.4 H (2.5-4.5) mg/dl Magnesium 1.8 (1.6-2.3) MG/DL Total Bilirubin 2.3 H (0.2-1.3) mg/dl AST 707 H D (17-59) U/L ALT 547 H (21-72) U/L Alkaline Phosphatase 90 (38-126) U/L Total Protein 5.9 L (6.3-8.2) G/DL Albumin 2.7 L (3.5-5.0) g/dL Globulin 3.2 (2.2-3.9) gm/dL Albumin/Globulin Ratio 0.8 L (1.0-2.1) Urine Osmolality (300-1000) mosm/kg Ur Random Creatinine mg/dL Ur Random Sodium mmol/L 07/12/18 07/12/18 07/11/18 Range/Units 04:27 04:27 21:18 WBC 20.7 H (4.8-10.8) K/uL RBC 2.93 L (4.40-5.90) Mil/uL Hgb 8.8 L (12.0-18.0) g/dL Hct 26.1 L (35.0-51.0) % MCV 89.1 (80.0-94.0) fl MCH 30.1 (27.0-31.0) pg MCHC 33.8 (33.0-37.0) g/dL RDW 16.5 H (11.5-14.5) % Plt Count 69 L (130-400) K/uL MPV 8.8 (7.2-11.7) fl Neut % (Auto) 90.9 H (50.0-75.0) % Lymph % (Auto) 5.0 L (20.0-40.0) % [place] % (Auto) 3.3 (0.0-10.0) % Eos % (Auto) 0.6 (0.0-4.0) % Baso % (Auto) 0.2 (0.0-2.0) % Neut # (Auto) 18.8 H (1.8-7.0) K/uL Lymph # (Auto) 1.0 (1.0-4.3) K/uL [place] # (Auto) 0.7 (0.0-0.8) K/uL Eos # (Auto) 0.1 (0.0-0.7) K/uL Baso # (Auto) 0.0 (0.0-0.2) K/uL PT 16.1 H (9.8-13.1) Seconds INR 1.4 APTT 35.2 (25.6-37.1) Seconds pCO2 (35-45) mm/Hg pO2 (80-100) mm/Hg HCO3 (21-28) mmol/L ABG pH (7.35-7.45) ABG Total CO2 (22-28) mmol/L ABG O2 Saturation (95-98) % ABG O2 Content (15-23) ML/dL ABG Base Excess (-2.0-3.0) mmol/L ABG Hemoglobin (11.7-17.4) g/dL ABG Carboxyhemoglobin (0.5-1.5) % POC ABG HHb (Measured) (0.0-5.0) % ABG Methemoglobin (0.0-3.0) % ABG O2 Capacity (16-24) mL/dL Van Test A-a O2 Difference mm/Hg Hgb O2 Saturation (95.0-98.0) % Vent Mode Mechanical Rate FiO2 % Tidal Volume PEEP Sodium (132-148) mmol/l Potassium (3.6-5.0) MMOL/L Chloride (98-107) mmol/L Carbon Dioxide (22-30) mmol/L Anion Gap (10-20) BUN (9-20) mg/dl Creatinine (0.8-1.5) mg/dl Est GFR ( Amer) Est GFR (Non-Af Amer) POC Glucose (mg/dL) 141 H (65-110) mg/dL Random Glucose (75-110) mg/dL Calcium (8.4-10.2) mg/dL Phosphorus (2.5-4.5) mg/dl Magnesium (1.6-2.3) MG/DL Total Bilirubin (0.2-1.3) mg/dl AST (17-59) U/L ALT (21-72) U/L Alkaline Phosphatase (38-126) U/L Total Protein (6.3-8.2) G/DL Albumin (3.5-5.0) g/dL Globulin (2.2-3.9) gm/dL Albumin/Globulin Ratio (1.0-2.1) Urine Osmolality (300-1000) mosm/kg Ur Random Creatinine mg/dL Ur Random Sodium mmol/L 07/11/18 07/11/18 07/11/18 Range/Units 18:04 12:07 11:40 WBC (4.8-10.8) K/uL RBC (4.40-5.90) Mil/uL Hgb (12.0-18.0) g/dL Hct (35.0-51.0) % MCV (80.0-94.0) fl MCH (27.0-31.0) pg MCHC (33.0-37.0) g/dL RDW (11.5-14.5) % Plt Count (130-400) K/uL MPV (7.2-11.7) fl Neut % (Auto) (50.0-75.0) % Lymph % (Auto) (20.0-40.0) % [place] % (Auto) (0.0-10.0) % Eos % (Auto) (0.0-4.0) % Baso % (Auto) (0.0-2.0) % Neut # (Auto) (1.8-7.0) K/uL Lymph # (Auto) (1.0-4.3) K/uL [place] # (Auto) (0.0-0.8) K/uL Eos # (Auto) (0.0-0.7) K/uL Baso # (Auto) (0.0-0.2) K/uL PT (9.8-13.1) Seconds INR APTT (25.6-37.1) Seconds pCO2 (35-45) mm/Hg pO2 (80-100) mm/Hg HCO3 (21-28) mmol/L ABG pH (7.35-7.45) ABG Total CO2 (22-28) mmol/L ABG O2 Saturation (95-98) % ABG O2 Content (15-23) ML/dL ABG Base Excess (-2.0-3.0) mmol/L ABG Hemoglobin (11.7-17.4) g/dL ABG Carboxyhemoglobin (0.5-1.5) % POC ABG HHb (Measured) (0.0-5.0) % ABG Methemoglobin (0.0-3.0) % ABG O2 Capacity (16-24) mL/dL Van Test A-a O2 Difference mm/Hg Hgb O2 Saturation (95.0-98.0) % Vent Mode Mechanical Rate FiO2 % Tidal Volume PEEP Sodium (132-148) mmol/l Potassium (3.6-5.0) MMOL/L Chloride (98-107) mmol/L Carbon Dioxide (22-30) mmol/L Anion Gap (10-20) BUN (9-20) mg/dl Creatinine (0.8-1.5) mg/dl Est GFR ( Amer) Est GFR (Non-Af Amer) POC Glucose (mg/dL) 138 H 155 H (65-110) mg/dL Random Glucose (75-110) mg/dL Calcium (8.4-10.2) mg/dL Phosphorus (2.5-4.5) mg/dl Magnesium (1.6-2.3) MG/DL Total Bilirubin (0.2-1.3) mg/dl AST (17-59) U/L ALT (21-72) U/L Alkaline Phosphatase (38-126) U/L Total Protein (6.3-8.2) G/DL Albumin (3.5-5.0) g/dL Globulin (2.2-3.9) gm/dL Albumin/Globulin Ratio (1.0-2.1) Urine Osmolality 303 (300-1000) mosm/kg Ur Random Creatinine 18.7 mg/dL Ur Random Sodium 113 mmol/L Laboratory Results - last 24 hr 07/11/18 07/11/18 07/11/18 11:40 12:07 18:04 WBC RBC Hgb Hct MCV MCH MCHC RDW Plt Count MPV Neut % (Auto) Lymph % (Auto) [place] % (Auto) Eos % (Auto) Baso % (Auto) Neut # (Auto) Lymph # (Auto) [place] # (Auto) Eos # (Auto) Baso # (Auto) PT INR APTT pCO2 pO2 HCO3 ABG pH ABG Total CO2 ABG O2 Saturation ABG O2 Content ABG Base Excess ABG Hemoglobin ABG Carboxyhemoglobin POC ABG HHb (Measured) ABG Methemoglobin ABG O2 Capacity Van Test A-a O2 Difference Hgb O2 Saturation Vent Mode Mechanical Rate FiO2 Tidal Volume PEEP Sodium Potassium Chloride Carbon Dioxide Anion Gap BUN Creatinine Est GFR ( Amer) Est GFR (Non-Af Amer) POC Glucose (mg/dL) 155 H 138 H Random Glucose Calcium Phosphorus Magnesium Total Bilirubin AST ALT Alkaline Phosphatase Total Protein Albumin Globulin Albumin/Globulin Ratio Urine Osmolality 303 Ur Random Creatinine 18.7 Ur Random Sodium 113 07/11/18 07/12/18 07/12/18 21:18 04:27 04:27 WBC 20.7 H RBC 2.93 L Hgb 8.8 L Hct 26.1 L MCV 89.1 MCH 30.1 MCHC 33.8 RDW 16.5 H Plt Count 69 L MPV 8.8 Neut % (Auto) 90.9 H Lymph % (Auto) 5.0 L [place] % (Auto) 3.3 Eos % (Auto) 0.6 Baso % (Auto) 0.2 Neut # (Auto) 18.8 H Lymph # (Auto) 1.0 [place] # (Auto) 0.7 Eos # (Auto) 0.1 Baso # (Auto) 0.0 PT 16.1 H INR 1.4 APTT 35.2 pCO2 pO2 HCO3 ABG pH ABG Total CO2 ABG O2 Saturation ABG O2 Content ABG Base Excess ABG Hemoglobin ABG Carboxyhemoglobin POC ABG HHb (Measured) ABG Methemoglobin ABG O2 Capacity Van Test A-a O2 Difference Hgb O2 Saturation Vent Mode Mechanical Rate FiO2 Tidal Volume PEEP Sodium Potassium Chloride Carbon Dioxide Anion Gap BUN Creatinine Est GFR ( Amer) Est GFR (Non-Af Amer) POC Glucose (mg/dL) 141 H Random Glucose Calcium Phosphorus Magnesium Total Bilirubin AST ALT Alkaline Phosphatase Total Protein Albumin Globulin Albumin/Globulin Ratio Urine Osmolality Ur Random Creatinine Ur Random Sodium 07/12/18 07/12/18 07/12/18 04:27 04:36 06:06 WBC RBC Hgb Hct MCV MCH MCHC RDW Plt Count MPV Neut % (Auto) Lymph % (Auto) [place] % (Auto) Eos % (Auto) Baso % (Auto) Neut # (Auto) Lymph # (Auto) [place] # (Auto) Eos # (Auto) Baso # (Auto) PT INR APTT pCO2 24 L pO2 149 H HCO3 19.3 L ABG pH 7.43 ABG Total CO2 16.6 L ABG O2 Saturation 100.9 H ABG O2 Content 13.2 L ABG Base Excess -7.2 L ABG Hemoglobin 9.4 L ABG Carboxyhemoglobin 2.1 H POC ABG HHb (Measured) -0.9 L ABG Methemoglobin 1.0 ABG O2 Capacity 13.1 L Van Test Yes A-a O2 Difference 106.0 Hgb O2 Saturation 97.8 Vent Mode A/c Mechanical Rate 12 FiO2 40.0 Tidal Volume 450 PEEP 5 Sodium 141 Potassium 4.0 Chloride 109 H Carbon Dioxide 18 L Anion Gap 18 BUN 55 H Creatinine 4.7 H Est GFR ( Amer) 15 Est GFR (Non-Af Amer) 12 POC Glucose (mg/dL) 141 H Random Glucose 138 H Calcium 6.8 L Phosphorus 5.4 H Magnesium 1.8 Total Bilirubin 2.3 H AST 707 H D ALT 547 H Alkaline Phosphatase 90 Total Protein 5.9 L Albumin 2.7 L Globulin 3.2 Albumin/Globulin Ratio 0.8 L Urine Osmolality Ur Random Creatinine Ur Random Sodium Radiology Impressions: Radiology Impressions Head CT 07/10/18 12:55 IMPRESSION: No acute intracranial abnormalities. No significant findings to account for the clinical presentation. Chest X-Ray 07/11/18 06:00 IMPRESSION: Worsening multifocal infiltrates/pulmonary edema. Chest X-Ray 07/11/18 17:26 IMPRESSION: Satisfactory position of recently placed nasogastric tube. Otherwise no interval change. EKG/Cardiology Studies: Cardiology / EKG Studies 07/11/18 09:00 EKG [ELECTROCARDIOGRAM] DAILY Comment: Mode Of Transportation: Reason For Exam: SVT versus Sinus tachy Fingerstick Blood Sugar Results: 141 Assessment/Plan - Assessment and Plan (Free Text) Assessment: A/P s/p cardiac arrest, respiratory failure, CHF, APURVA on CKD, paroxysmal A Fib, anemia, s/p lap ana maria, ?anoxic encephalopathy, R/O CT, R/O sepsis - Ventilatory support - Continue meds - Cardiology follow up - Neurology follow up - Pulmonary toilets - DVT prophylaxis - Poor prognosis critical care 40 min
--- NOTE | 2018-07-12 08:00 | CP.PCM.PN ---
<Rhys Wagner - Last Filed: 07/12/18 08:06> Subjective - Date & Time of Evaluation Date of Evaluation: 07/12/18 Time of Evaluation: 08:06 - Subjective Subjective: Surgery Progress Note for Dr. Berrios Patient seen and evaluated at bedside this morning. Patient intubated, GCS 3T. Patient has cough and gag reflex present. Hgb currently stable at 8.8. Patient has had minimal urine. HR in 130s-140s. ROS unobtainable due to clinical condition. Objective - Vital Signs/Intake and Output Vital Signs (last 24 hours): Temp Pulse Resp BP Pulse Ox 100.6 F H 145 H 17 154/80 H 100 07/12/18 07:54 07/12/18 07:54 07/12/18 07:54 07/12/18 07:54 07/12/18 07:54 Intake and Output: 07/12/18 07/12/18 06:59 18:59 Intake Total 200 Output Total 50 Balance 150 - Medications Medications: Current Medications Acetaminophen (Tylenol 650mg/20.3ml Solution Ud) 650 mg PO Q6 PRN PRN Reason: fever Enoxaparin Sodium (Lovenox) 30 mg SC DAILY ANTONY; Protocol Last Admin: 07/08/18 09:10 Dose: 30 mg Piperacillin Sod/Tazobactam (Sod 2.25 gm/ Sodium Chloride) 100 mls @ 100 mls/hr IVPB Q12 ANTONY; Protocol Last Admin: 07/11/18 21:10 Dose: 100 mls/hr Meropenem 500 mg/ Sodium (Chloride) 100 mls @ 100 mls/hr IVPB Q12H ANTONY; Protocol Last Admin: 07/12/18 00:16 Dose: 100 mls/hr Insulin Human Lispro (Humalog) 0 units SC ACHS ANTONY; Protocol Last Admin: 07/12/18 06:54 Dose: Not Given Ipratropium [place] (Atrovent) 0.5 mg IH RQ6 ANTONY Last Admin: 07/12/18 07:35 Dose: 0.5 mg Latanoprost (Xalatan Opht) 1 drop OD HS ANTONY Last Admin: 07/11/18 21:12 Dose: 1 drop Metoprolol Tartrate (Lopressor) 150 mg PO Q12@0700,1900 ANTONY Last Admin: 07/12/18 07:23 Dose: Not Given Metoprolol Tartrate (Lopressor) 5 mg IVP Q6 [facility] Last Admin: 07/12/18 04:26 Dose: 5 mg Ondansetron HCl (Zofran Inj) 4 mg IVP Q6 PRN PRN Reason: Nausea/Vomiting Pantoprazole Sodium (Protonix Inj) 40 mg IVP DAILY ANTONY - Labs Labs: 07/12/18 04:27 07/12/18 04:27 PT 16.1 Seconds (9.8-13.1) H 07/12/18 04:27 INR 1.4 07/12/18 04:27 APTT 35.2 Seconds (25.6-37.1) 07/12/18 04:27 - Additional Findings Additional findings: - Constitutional Appears: Other (intubated) - Head Exam Head Exam: ATRAUMATIC, NORMAL INSPECTION, NORMOCEPHALIC - Eye Exam Pupil Exam: Fixed - ENT Exam ENT Exam: Mucous Membranes Dry - Respiratory Exam Additional comments: mechanical ventilation - Cardiovascular Exam Cardiovascular Exam: Tachycardia - GI/Abdominal Exam Additional comments: right sided ecchymosis from RUQ to right flank surgical sites c/d/i - Exam Exam: Scrotal Swelling - Extremities Exam Extremities Exam: Pedal Edema - Neurological Exam Neurological Exam: absent: Awake Assessment and Plan - Assessment and Plan (Free Text) Assessment: 78M who is s/p lap ana maria with IOC POD#5 s/p cardiac arrest now with anemia, acute respiratory failure, APURVA, and anoxic brain injury Plan: Monitor H/H, Transfuse PRN Hold anticoagulation IV hydration Feeding as per ICU FU Cardiology FU Nephrology FU neurology Recommend establishing goals of care Medical management as per ICU [facility] <Jon Berrios - Last Filed: 07/12/18 16:25> Subjective - Date & Time of Evaluation Time of Evaluation: 16:10 - Subjective Subjective: Patient was seen and examined at the bedside. Agree with resident's note above. Objective - Vital Signs/Intake and Output Vital Signs (last 24 hours): Temp Pulse Resp BP Pulse Ox 100.8 F H 135 H 24 163/89 H 100 07/12/18 14:00 07/12/18 14:00 07/12/18 14:00 07/12/18 14:00 07/12/18 14:00 Intake and Output: 07/12/18 07/12/18 06:59 18:59 Intake Total 200 200 Output Total 50 Balance 150 200 - Medications Medications: Current Medications Acetaminophen (Tylenol 650mg/20.3ml Solution Ud) 650 mg PO Q6 PRN PRN Reason: fever Enoxaparin Sodium (Lovenox) 30 mg SC DAILY [facility]; Protocol Last Admin: 07/08/18 09:10 Dose: 30 mg Piperacillin Sod/Tazobactam (Sod 2.25 gm/ Sodium Chloride) 100 mls @ 100 mls/hr IVPB Q12 ANTONY; Protocol Last Admin: 07/12/18 08:15 Dose: 100 mls/hr Meropenem 500 mg/ Sodium (Chloride) 100 mls @ 100 mls/hr IVPB Q12H ANTONY; Protocol Last Admin: 07/12/18 12:15 Dose: 100 mls/hr Sodium Chloride (Sodium Chloride 0.9%) 1,000 mls @ 50 mls/hr IV .Q20H [facility] Stop: 07/13/18 08:10 Last Admin: 07/12/18 08:14 Dose: 50 mls/hr Insulin Human Lispro (Humalog) 0 units SC ACHS ANTONY; Protocol Last Admin: 07/12/18 12:11 Dose: Not Given Ipratropium [place] (Atrovent) 0.5 mg IH RQ6 [facility] Last Admin: 07/12/18 13:04 Dose: 0.5 mg Latanoprost (Xalatan Opht) 1 drop OD HS [facility] Last Admin: 07/11/18 21:12 Dose: 1 drop Metoprolol Tartrate (Lopressor) 150 mg PO Q12@0700,1900 [facility] Last Admin: 07/12/18 07:23 Dose: Not Given Metoprolol Tartrate (Lopressor) 5 mg IVP Q6 [facility]TONY Last Admin: 07/12/18 08:59 Dose: 5 mg Ondansetron HCl (Zofran Inj) 4 mg IVP Q6 PRN PRN Reason: Nausea/Vomiting Pantoprazole Sodium (Protonix Inj) 40 mg IVP DAILY [facility] Last Admin: 07/12/18 08:14 Dose: 40 mg - Labs Labs: 07/12/18 04:27 07/12/18 04:27 PT 16.1 Seconds (9.8-13.1) H 07/12/18 04:27 INR 1.4 07/12/18 04:27 APTT 35.2 Seconds (25.6-37.1) 07/12/18 04:27 Assessment and Plan - Assessment and Plan (Free Text) Plan: - Continue antibiotics as per ID - Repeat labs in am - Will follow
[2018-07-12] MEDS: Sodium Chloride 0.9% 1,000 ML IV SCH (08:14)
--- NOTE | 2018-07-12 09:36 | CP.PCM.PN ---
Subjective - Date & Time of Evaluation Date of Evaluation: 07/12/18 Time of Evaluation: 09:00 - Subjective Subjective: The patient continues to be vent dependent and unresponsive to painful stimuli. Has had a fever of 100.4 F. Cultures were sent and the patient has been on IV antibiotics being monitored by ID. Continues to show atrial fibrillation at a heart rate which ranges between 120 and 130 bpm being controlled with 5 mg of metoprolol every 6 hours intravenously. His blood pressure was 114/74 mmHg and he has made approximately 50 mL of urine in the last 12 hours. Rest of his physical findings were not significantly changed. Labs show stable hemoglobin with moderate thrombocytopenia. Azotemia has further worsened due to severe oliguria. AST ALT show mild improvement. The patient continues to show consequences of severe and of 6 encephalopathy following his cardiorespiratory arrest. He will be evaluated again today by neurologist regarding his improvement if any as well as potential for recovery. The patient was seen by boat camp operator today and the decision regarding possible hemodialysis will be made based on findings of the neurologist. I spoke with the patient's family at length regarding his continued care. His prognosis remains grave. Objective - Vital Signs/Intake and Output Vital Signs (last 24 hours): Temp Pulse Resp BP Pulse Ox 100.6 F H 143 H 17 160/76 H 100 07/12/18 07:54 07/12/18 08:59 07/12/18 07:54 07/12/18 08:59 07/12/18 07:54 Intake and Output: 07/12/18 07/12/18 06:59 18:59 Intake Total 200 100 Output Total 50 Balance 150 100 - Medications Medications: Current Medications Acetaminophen (Tylenol 650mg/20.3ml Solution Ud) 650 mg PO Q6 PRN PRN Reason: fever Enoxaparin Sodium (Lovenox) 30 mg SC DAILY ANTONY; Protocol Last Admin: 07/08/18 09:10 Dose: 30 mg Piperacillin Sod/Tazobactam (Sod 2.25 gm/ Sodium Chloride) 100 mls @ 100 mls/hr IVPB Q12 ANTONY; Protocol Last Admin: 07/12/18 08:15 Dose: 100 mls/hr Meropenem 500 mg/ Sodium (Chloride) 100 mls @ 100 mls/hr IVPB Q12H [facility]TONY; Protocol Last Admin: 07/12/18 00:16 Dose: 100 mls/hr Sodium Chloride (Sodium Chloride 0.9%) 1,000 mls @ 50 mls/hr IV .Q20H [facility] Stop: 07/13/18 08:10 Last Admin: 07/12/18 08:14 Dose: 50 mls/hr Insulin Human Lispro (Humalog) 0 units SC ACHS [facility]; Protocol Last Admin: 07/12/18 06:54 Dose: Not Given Ipratropium [place] (Atrovent) 0.5 mg IH RQ6 [facility] Last Admin: 07/12/18 07:35 Dose: 0.5 mg Latanoprost (Xalatan Opht) 1 drop OD HS [facility] Last Admin: 07/11/18 21:12 Dose: 1 drop Metoprolol Tartrate (Lopressor) 150 mg PO Q12@0700,1900 [facility] Last Admin: 07/12/18 07:23 Dose: Not Given Metoprolol Tartrate (Lopressor) 5 mg IVP Q6 [facility] Last Admin: 07/12/18 08:59 Dose: 5 mg Ondansetron HCl (Zofran Inj) 4 mg IVP Q6 PRN PRN Reason: Nausea/Vomiting Pantoprazole Sodium (Protonix Inj) 40 mg IVP DAILY [facility] Last Admin: 07/12/18 08:14 Dose: 40 mg - Labs Labs: 07/12/18 04:27 07/12/18 04:27 PT 16.1 Seconds (9.8-13.1) H 07/12/18 04:27 INR 1.4 07/12/18 04:27 APTT 35.2 Seconds (25.6-37.1) 07/12/18 04:27
[2018-07-12 09:47] LABS: ANISOCYTOSIS SLIGHT; BANDS 5 % (0-2); BURR CELLS SLIGHT; EOSINOPHIL 1 % (0-7); LYMPHOCYTE 6 % (20-50); METAMYELOCYTE 1 % (0-0); MONOCYTE 7 % (0-10); MYELOCYTE 1 % (0-0); NEUTROPHIL 79 % (42-75); NUCLEATED RED BLOOD CELL 3 % (0-0); OVALOCYTES SLIGHT; PLATELET ESTIMATE DECREASED (NORMAL); TOTAL CELLS COUNTED 100
[2018-07-12 09:48] LABS: HYPOCHROMIC MODERATE
--- NOTE | 2018-07-12 10:31 | CP.PCM.PN ---
Subjective - Date & Time of Evaluation Date of Evaluation: 07/12/18 Time of Evaluation: 10:30 - Subjective Subjective: Seen on rounds in the ICU for continued ventilator management. Clinical status appears to be more or less status quo. Renal function appears to be worsening, neuro status to be re-evaluated. Chest x-ray shows increased bronchovascular markings with some reduced patchy infiltrate in the RUL, left basal haziness. He has maintained a febrile pattern today. Oxygenation remains adequate. Secondary hyperventilation to maintain pH. Leukocytosis is increased to 20 today. No dullness on percussion of the anterior chest wall. No subcut emphysema. Breath sounds are well heard anteriorly in both lungs. Scattered rhonchi and occasional medium rales are present posteriorly, R>L. No audible wheezing or bronchial breathing. Neck remains supple and trachea midline. Will NOT wean ventilator at this time. Await neuro eval and plan of care. Continued antibiotic therapy. Family members present and updated. CCT 30min. Objective - Vital Signs/Intake and Output Vital Signs (last 24 hours): Temp Pulse Resp BP Pulse Ox 100.6 F H 143 H 17 160/76 H 100 07/12/18 07:54 07/12/18 08:59 07/12/18 07:54 07/12/18 08:59 07/12/18 07:54 Intake and Output: 07/11/18 07/12/18 23:59 11:59 Intake Total 200 200 Output Total 40 50 Balance 160 150 - Medications Medications: Current Medications Acetaminophen (Tylenol 650mg/20.3ml Solution Ud) 650 mg PO Q6 PRN PRN Reason: fever Enoxaparin Sodium (Lovenox) 30 mg SC DAILY [facility]; Protocol Last Admin: 07/08/18 09:10 Dose: 30 mg Piperacillin Sod/Tazobactam (Sod 2.25 gm/ Sodium Chloride) 100 mls @ 100 mls/hr IVPB Q12 [facility]; Protocol Last Admin: 07/12/18 08:15 Dose: 100 mls/hr Meropenem 500 mg/ Sodium (Chloride) 100 mls @ 100 mls/hr IVPB Q12H [facility]; Protocol Last Admin: 07/12/18 00:16 Dose: 100 mls/hr Sodium Chloride (Sodium Chloride 0.9%) 1,000 mls @ 50 mls/hr IV .Q20H [facility] Stop: 07/13/18 08:10 Last Admin: 07/12/18 08:14 Dose: 50 mls/hr Insulin Human Lispro (Humalog) 0 units SC ACHS [facility]; Protocol Last Admin: 07/12/18 06:54 Dose: Not Given Ipratropium [place] (Atrovent) 0.5 mg IH RQ6 [facility] Last Admin: 07/12/18 07:35 Dose: 0.5 mg Latanoprost (Xalatan Opht) 1 drop OD HS [facility] Last Admin: 07/11/18 21:12 Dose: 1 drop Metoprolol Tartrate (Lopressor) 150 mg PO Q12@0700,1900 [facility] Last Admin: 07/12/18 07:23 Dose: Not Given Metoprolol Tartrate (Lopressor) 5 mg IVP Q6 [facility] Last Admin: 07/12/18 08:59 Dose: 5 mg Ondansetron HCl (Zofran Inj) 4 mg IVP Q6 PRN PRN Reason: Nausea/Vomiting Pantoprazole Sodium (Protonix Inj) 40 mg IVP DAILY [facility] Last Admin: 07/12/18 08:14 Dose: 40 mg - Labs Labs: 07/12/18 04:27 07/12/18 04:27 PT 16.1 Seconds (9.8-13.1) H 07/12/18 04:27 INR 1.4 07/12/18 04:27 APTT 35.2 Seconds (25.6-37.1) 07/12/18 04:27 Assessment and Plan (1) HCAP (healthcare-associated pneumonia) Status: Acute (2) Acute blood loss anemia Status: Acute (3) COPD (chronic obstructive pulmonary disease) Status: Chronic (4) Respiratory failure Status: Acute (5) On mechanically assisted ventilation Status: Acute (6) Altered mental status Status: Acute
--- NOTE | 2018-07-12 11:00 | CP.PCM.PN ---
Subjective - Date & Time of Evaluation Date of Evaluation: 07/12/18 Time of Evaluation: 10:53 - Subjective Subjective: Nephrology Consultation Note Assessment: critical oligoanuric Acute Kidney Injury (N17.9) likely due to ATN Diabetic chronic Kidney Disease (E11.22) Hypertensive Chronic Kidney Disease (I12.9) Chronic Kidney Disease (N18.3) Stage 3 with baseline cr 1.4-2.0 Anemia of acute blood loss, lactic acidosis sepsis with acute cholecystitis. hx of CAD s/p CABG, DM/HTN/COPD, sys CHF, A fib Plan d/w PMD and family bedside about likely need for renal replacement therapy soon. Family awaiting neurologist input to decide about dialysis and doesn't want to go through dialysis if chances of neurological recovery poor Hypertension control with meds as ordered. Maintain hemodynamics stable. Avoid hypotension. Patient not on ACEI/ARB due to recent APURVA Monitor Input/Output, daily weights and renal function with basic metabolic panel A fib rate control per cardiology continue with antibiotics PRBC as needed Dose meds/antibiotics for reduced GFR. Avoid fleets enema/magnesium based laxatives. Avoid nephrotoxins/NSAIDs/ iodinated contrast (unless needed emergently) Glycemic control Further work up for as per primary team Thanks for allowing me to participate in care of your patient. Will follow patient with you. Please call if any Qs. had d/w team Dr Torres [place] Office: [phone] Subjective: Noted events overnight. Patients orally intubated Physical Examination: General Appearance: orally intubated. overall ill appearing. Vitals reviewed and noted as below Head; Atraumatic, normocephalic ENT: orlaly intubated EYES: b/l cataract. difficult to ascertain light reflex Neck; supple no lymphadenopathy, no thyromegaly or bruit Lungs: Increeased respiratory rate/effort. Breath sounds bilateral reduced with crackles Heart: Incre rate. s1s2 normal. No rub or gallop. Extremities: 2+ edema. No varicose veins Neurological: Patient is mostly unresponsive except moves feet briefly to touch/pressure stimuli Skin: Warm and dry. Normal turgor. No rash. Palpitation: Normal elasticity for age Abdomen: Abdomen is soft/distended. Bowel sounds +. has subcut echymoses to Rt abdomen Psych:unable MSK: no joint tenderness or swelling. Digits and nails normal, no deformity : kidney or bladder not palpable. has higgins. scrotum grossly swollen Labs/imaging reviewed. Past medical history, past surgical history, family history, social history, allergy reviewed and noted as below Family hx: no hx of CKD. Rest non-contributory Objective - Vital Signs/Intake and Output Vital Signs (last 24 hours): Temp Pulse Resp BP Pulse Ox 100.6 F H 143 H 17 160/76 H 100 07/12/18 07:54 07/12/18 08:59 07/12/18 07:54 07/12/18 08:59 07/12/18 07:54 Intake and Output: 07/12/18 07/12/18 06:59 18:59 Intake Total 200 100 Output Total 50 Balance 150 100 - Medications Medications: Current Medications Acetaminophen (Tylenol 650mg/20.3ml Solution Ud) 650 mg PO Q6 PRN PRN Reason: fever Enoxaparin Sodium (Lovenox) 30 mg SC DAILY [facility]; Protocol Last Admin: 07/08/18 09:10 Dose: 30 mg Piperacillin Sod/Tazobactam (Sod 2.25 gm/ Sodium Chloride) 100 mls @ 100 mls/hr IVPB Q12 [facility]; Protocol Last Admin: 07/12/18 08:15 Dose: 100 mls/hr Meropenem 500 mg/ Sodium (Chloride) 100 mls @ 100 mls/hr IVPB Q12H [facility]; Protocol Last Admin: 07/12/18 00:16 Dose: 100 mls/hr Sodium Chloride (Sodium Chloride 0.9%) 1,000 mls @ 50 mls/hr IV .Q20H [facility] Stop: 07/13/18 08:10 Last Admin: 07/12/18 08:14 Dose: 50 mls/hr Insulin Human Lispro (Humalog) 0 units SC ACHS [facility]; Protocol Last Admin: 07/12/18 06:54 Dose: Not Given Ipratropium [place] (Atrovent) 0.5 mg IH RQ6 [facility] Last Admin: 07/12/18 07:35 Dose: 0.5 mg Latanoprost (Xalatan Opht) 1 drop OD HS [facility] Last Admin: 07/11/18 21:12 Dose: 1 drop Metoprolol Tartrate (Lopressor) 150 mg PO Q12@0700,1900 [facility] Last Admin: 07/12/18 07:23 Dose: Not Given Metoprolol Tartrate (Lopressor) 5 mg IVP Q6 [facility] Last Admin: 07/12/18 08:59 Dose: 5 mg Ondansetron HCl (Zofran Inj) 4 mg IVP Q6 PRN PRN Reason: Nausea/Vomiting Pantoprazole Sodium (Protonix Inj) 40 mg IVP DAILY [facility] Last Admin: 07/12/18 08:14 Dose: 40 mg - Labs Labs: 07/12/18 04:27 07/12/18 04:27 PT 16.1 Seconds (9.8-13.1) H 07/12/18 04:27 INR 1.4 07/12/18 04:27 APTT 35.2 Seconds (25.6-37.1) 07/12/18 04:27
--- NOTE | 2018-07-12 11:37 | RAD ---
Date of service: 07/12/2018 HISTORY: intubated COMPARISON: July 11, 2018. Serial examinations plea [place] FINDINGS: LUNGS: Stable multifocal infiltrates PLEURA: No significant pleural effusion identified, no pneumothorax apparent. CARDIOVASCULAR: Atherosclerotic calcifications identified primarily aortic arch. No radiographic findings to suggest acute or significant cardiovascular disease. Incidental Finding(s): Postoperative changes related to sternotomy. No significant interval change compared to the prior examination(s). OSSEOUS STRUCTURES: No significant abnormalities. VISUALIZED UPPER ABDOMEN: Normal. OTHER FINDINGS: Stable, satisfactory position ventilatory, nasogastric apparatus. IMPRESSION: No significant interval change compared to the prior examination(s).
--- NOTE | 2018-07-12 16:53 | CP.PCM.PN ---
Subjective - Date & Time of Evaluation Date of Evaluation: 07/12/18 Time of Evaluation: 16:52 - Subjective Subjective: Mr. Jackson was seen and examined today at bedside in the ICU. I discussed with his children and cousin who is a physician the poor prognosis and we agreed to obtain an MRI to evaluate further for ischemic injury. Objective - Vital Signs/Intake and Output Vital Signs (last 24 hours): Temp Pulse Resp BP Pulse Ox 100.6 F H 135 H 17 143/86 100 07/12/18 16:00 07/12/18 16:29 07/12/18 16:00 07/12/18 16:29 07/12/18 16:00 Intake and Output: 07/12/18 07/12/18 06:59 18:59 Intake Total 200 700 Output Total 50 90 Balance 150 610 - Medications Medications: Current Medications Acetaminophen (Tylenol 650mg/20.3ml Solution Ud) 650 mg PO Q6 PRN PRN Reason: fever Enoxaparin Sodium (Lovenox) 30 mg SC DAILY [facility]; Protocol Last Admin: 07/08/18 09:10 Dose: 30 mg Piperacillin Sod/Tazobactam (Sod 2.25 gm/ Sodium Chloride) 100 mls @ 100 mls/hr IVPB Q12 [facility]; Protocol Last Admin: 07/12/18 08:15 Dose: 100 mls/hr Meropenem 500 mg/ Sodium (Chloride) 100 mls @ 100 mls/hr IVPB Q12H [facility]; Protocol Last Admin: 07/12/18 12:15 Dose: 100 mls/hr Sodium Chloride (Sodium Chloride 0.9%) 1,000 mls @ 50 mls/hr IV .Q20H [facility] Stop: 07/13/18 08:10 Last Admin: 07/12/18 08:14 Dose: 50 mls/hr Insulin Human Lispro (Humalog) 0 units SC ACHS [facility]; Protocol Last Admin: 07/12/18 16:27 Dose: Not Given Ipratropium [place] (Atrovent) 0.5 mg IH RQ6 [facility] Last Admin: 07/12/18 13:04 Dose: 0.5 mg Latanoprost (Xalatan Opht) 1 drop OD HS [facility] Last Admin: 07/11/18 21:12 Dose: 1 drop Metoprolol Tartrate (Lopressor) 5 mg IVP Q6 [facility] Last Admin: 07/12/18 16:29 Dose: 5 mg Ondansetron HCl (Zofran Inj) 4 mg IVP Q6 PRN PRN Reason: Nausea/Vomiting Pantoprazole Sodium (Protonix Inj) 40 mg IVP DAILY [facility] Last Admin: 07/12/18 08:14 Dose: 40 mg - Labs Labs: 07/12/18 04:27 07/12/18 04:27 PT 16.1 Seconds (9.8-13.1) H 07/12/18 04:27 INR 1.4 07/12/18 04:27 APTT 35.2 Seconds (25.6-37.1) 07/12/18 04:27 - Neurological Exam Neuro motor strength exam: Left Upper Extremity: 0, Right Upper Extremity: 0, Left Lower Extremity: 0, Right Lower Extremity: 0 Additional comments: Brainstem reflexes are intact. Grimaces to pain. Does not follow commands. Does not move extremities to command. Does not track. Assessment and Plan (1) Anoxic brain injury Assessment & Plan: Will order MRI brain without contrast for further evaluation and discuss findings with family. Status: Acute
[2018-07-12] MEDS: Latanoprost 0.005% Opht SOUTION OD SCH (21:47)
[2018-07-13] MEDS: Meropenem 500 MG in Sodium Chloride 0.9% 100 ML IVPB SCH ×2 (00:47→12:41)
[2018-07-13] MEDS: Insulin Lispro (humaLOG) 100 Units/ml Inj SC SCH ×5 (00:57→21:50)
[2018-07-13] MEDS: Ipratropium 0.02% Inhal Soln (0.5 mg/2.5 ml) UD IH SCH ×4 (01:10→19:11)
[2018-07-13] MEDS: Metoprolol 1 mg/ml Inj IVP SCH ×4 (03:25→21:26)
[2018-07-13 05:51] LABS: ABG ALLEN TEST YES; ARTERIAL BLOOD GAS HCO3 17.5 mmol/L (21-28); ARTERIAL BLOOD GAS HEMOGLOBIN 9.6 g/dL (11.7-17.4); ARTERIAL BLOOD GAS O2 CAPACITY 13.5 mL/dL (16-24); ARTERIAL BLOOD GAS O2 CONTENT 13.5 ML/dL (15-23); ARTERIAL BLOOD GAS O2 SAT 100.1 % (95-98); ARTERIAL BLOOD GAS PCO2 23 mm/Hg (35-45); ARTERIAL BLOOD GAS PH 7.39 (7.35-7.45); ARTERIAL BLOOD GAS PO2 175 mm/Hg (80-100); ARTERIAL BLOOD GAS TCO2 14.6 mmol/L (22-28)
[2018-07-13 06:42] LABS: BASO # 0.1 K/uL (0.0-0.2); BASO % 0.3 % (0.0-2.0); EOS # 0.1 K/uL (0.0-0.7); EOS % 0.6 % (0.0-4.0); HEMOGLOBIN 9.1 g/dL (12.0-18.0); LYMPH # 1.4 K/uL (1.0-4.3); LYMPH % 6.1 % (20.0-40.0); MEAN CELL VOLUME 90.3 fl (80.0-94.0); MEAN CORPUSCULAR HGB CONC 33.2 g/dL (33.0-37.0); MEAN PLATELET VOLUME 9.4 fl (7.2-11.7); MONO % 4.4 % (0.0-10.0); NEUT # 19.7 K/uL (1.8-7.0); NEUT % 88.6 % (50.0-75.0); NRBC % 1.7 % (0.0-0.0); RBC 3.05 Mil/uL (4.40-5.90); WHITE BLOOD COUNT 22.3 K/uL (4.8-10.8)
[2018-07-13 07:13] LABS: CALCIUM 6.9 mg/dL (8.4-10.2)
[2018-07-13] MEDS: Sodium Chloride 0.9% 1,000 ML IV SCH (08:25)
[2018-07-13 09:00] VITALS: BMI 29.2
[2018-07-13] MEDS ORDERED: Sodium Bicarbonate (8.4%) 50 Meq Syringe IVP ONE (10:00)
--- NOTE | 2018-07-13 10:43 | CP.PCM.PN ---
Subjective - Date & Time of Evaluation Date of Evaluation: 07/13/18 Time of Evaluation: 09:40 - Subjective Subjective: The patient continues to be vent dependent. Patient's daughter indicates that yesterday in response to her request he blinked his eyes. To painful stimuli today he barely opens his eyes. monitoring analyst continues to show atrial fibrillation at heart rates which range between 120 and 140 bpm. 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 His blood pressure was 150/74 mmHg without any pressor support. FiO2 was 40% and his pulse oximetry shows O2 saturation of 98% blood gases show normal pH. His extremities were warm and his pedal pulses were well felt. Intestinal sounds were distant and extremely sluggish. Labs show a stable hemoglobin at 9.1 g. Leukocytosis persists. Moderate thrombocytopenia persists. His BUN and creatinine were 18 and 6 mg percent respectively with normal potassium. Rest of his labs were noted. Discussed his case with Dr. Morgan yesterday Spoke today with his daughter who was at bedside The patient is stable from hemodynamic point of view at this juncture. Supportive care and monitoring of his labs continues Prognosis is poor Objective - Vital Signs/Intake and Output Vital Signs (last 24 hours): Temp Pulse Resp BP Pulse Ox 99.1 F 143 H 18 156/97 H 100 07/13/18 10:00 07/13/18 10:00 07/13/18 10:00 07/13/18 10:00 07/13/18 10:00 Intake and Output: 07/13/18 07/13/18 06:59 18:59 Intake Total 650 100 Output Total 150 20 Balance 500 80 - Medications Medications: Current Medications Acetaminophen (Tylenol 650mg/20.3ml Solution Ud) 650 mg PO Q6 PRN PRN Reason: fever Enoxaparin Sodium (Lovenox) 30 mg SC DAILY [facility]; Protocol Last Admin: 07/08/18 09:10 Dose: 30 mg Piperacillin Sod/Tazobactam (Sod 2.25 gm/ Sodium Chloride) 100 mls @ 100 mls/hr IVPB Q12 [facility]; Protocol Last Admin: 07/13/18 08:17 Dose: 100 mls/hr Meropenem 500 mg/ Sodium (Chloride) 100 mls @ 100 mls/hr IVPB Q12H [facility]; Protocol Last Admin: 07/13/18 00:47 Dose: 100 mls/hr Insulin Human Lispro (Humalog) 0 units SC ACHS [facility]; Protocol Last Admin: 07/13/18 08:02 Dose: Not Given Ipratropium [place] (Atrovent) 0.5 mg IH RQ6 [facility] Last Admin: 07/13/18 07:51 Dose: 0.5 mg Latanoprost (Xalatan Opht) 1 drop OD HS [facility] Last Admin: 07/12/18 21:47 Dose: 1 drop Metoprolol Tartrate (Lopressor) 5 mg IVP Q6 [facility] Last Admin: 07/13/18 09:28 Dose: 5 mg Ondansetron HCl (Zofran Inj) 4 mg IVP Q6 PRN PRN Reason: Nausea/Vomiting Pantoprazole Sodium (Protonix Inj) 40 mg IVP DAILY [facility] Last Admin: 07/13/18 08:16 Dose: 40 mg - Labs Labs: 07/13/18 05:21 07/13/18 05:21 PT 16.1 Seconds (9.8-13.1) H 07/12/18 04:27 INR 1.4 07/12/18 04:27 APTT 35.2 Seconds (25.6-37.1) 07/12/18 04:27
--- NOTE | 2018-07-13 12:02 | CP.PCM.PN ---
Subjective - Date & Time of Evaluation Date of Evaluation: 07/13/18 Time of Evaluation: 12:00 - Subjective Subjective: Nephrology Consultation Note Assessment: critical Oligoanuric Acute Kidney Injury (N17.9) likely due to ATN Diabetic chronic Kidney Disease (E11.22) Hypertensive Chronic Kidney Disease (I12.9) Chronic Kidney Disease (N18.3) Stage 3 with baseline cr 1.4-2.0 Anemia of acute blood loss, lactic acidosis sepsis with acute cholecystitis. hx of CAD s/p CABG, DM/HTN/COPD, sys CHF, A fib Plan had d/w PMD and family bedside about likely need for renal replacement therapy soon. Family awaiting neurologist input to decide about dialysis and doesn't want to go through dialysis if chances of neurological recovery poor. plan for MRI brain Hypertension control with meds as ordered. Maintain hemodynamics stable. Avoid hypotension. Patient not on ACEI/ARB due to recent APURVA Monitor Input/Output, daily weights and renal function with basic metabolic panel A fib rate control per cardiology continue with antibiotics PRBC as needed Dose meds/antibiotics for reduced GFR. Avoid fleets enema/magnesium based laxatives. Avoid nephrotoxins/NSAIDs/ iodinated contrast (unless needed emergently) Glycemic control Further work up for as per primary team Thanks for allowing me to participate in care of your patient. Will follow patient with you. Please call if any Qs. had d/w team Dr Torres [place] Office: [phone] Subjective: Noted events overnight. Patients orally intubated Physical Examination: General Appearance: orally intubated. overall ill appearing. unresponsive Vitals reviewed and noted as below Head; Atraumatic, normocephalic ENT: orlaly intubated EYES: b/l cataract. difficult to ascertain light reflex Neck; supple no lymphadenopathy, no thyromegaly or bruit Lungs: Increeased respiratory rate/effort. Breath sounds bilateral reduced with crackles Heart: Incre rate. s1s2 normal. No rub or gallop. Extremities: 2+ edema. No varicose veins Neurological: Patient is unresponsive Skin: Warm and dry. Normal turgor. No rash. Palpitation: Normal elasticity for age Abdomen: Abdomen is soft/distended. Bowel sounds +. has subcut echymoses to Rt abdomen Psych:unable MSK: no joint tenderness or swelling. Digits and nails normal, no deformity : kidney or bladder not palpable. has higgins. scrotum grossly swollen Labs/imaging reviewed. Past medical history, past surgical history, family history, social history, allergy reviewed and noted as below Family hx: no hx of CKD. Rest non-contributory Objective - Vital Signs/Intake and Output Vital Signs (last 24 hours): Temp Pulse Resp BP Pulse Ox 99.1 F 132 H 21 155/89 H 100 07/13/18 11:00 07/13/18 11:00 07/13/18 11:00 07/13/18 11:00 07/13/18 11:00 Intake and Output: 07/13/18 07/13/18 06:59 18:59 Intake Total 650 200 Output Total 150 40 Balance 500 160 - Medications Medications: Current Medications Acetaminophen (Tylenol 650mg/20.3ml Solution Ud) 650 mg PO Q6 PRN PRN Reason: fever Enoxaparin Sodium (Lovenox) 30 mg SC DAILY [facility]; Protocol Last Admin: 07/08/18 09:10 Dose: 30 mg Piperacillin Sod/Tazobactam (Sod 2.25 gm/ Sodium Chloride) 100 mls @ 100 mls/hr IVPB Q12 [facility]; Protocol Last Admin: 07/13/18 08:17 Dose: 100 mls/hr Meropenem 500 mg/ Sodium (Chloride) 100 mls @ 100 mls/hr IVPB Q12H [facility]; Protocol Last Admin: 07/13/18 00:47 Dose: 100 mls/hr Insulin Human Lispro (Humalog) 0 units SC ACHS [facility]; Protocol Last Admin: 07/13/18 08:02 Dose: Not Given Ipratropium [place] (Atrovent) 0.5 mg IH RQ6 [facility] Last Admin: 07/13/18 07:51 Dose: 0.5 mg Latanoprost (Xalatan Opht) 1 drop OD HS [facility] Last Admin: 07/12/18 21:47 Dose: 1 drop Metoprolol Tartrate (Lopressor) 5 mg IVP Q6 [facility] Last Admin: 07/13/18 09:28 Dose: 5 mg Ondansetron HCl (Zofran Inj) 4 mg IVP Q6 PRN PRN Reason: Nausea/Vomiting Pantoprazole Sodium (Protonix Inj) 40 mg IVP DAILY [facility] Last Admin: 07/13/18 08:16 Dose: 40 mg - Labs Labs: 07/13/18 05:21 07/13/18 05:21 PT 16.1 Seconds (9.8-13.1) H 07/12/18 04:27 INR 1.4 07/12/18 04:27 APTT 35.2 Seconds (25.6-37.1) 07/12/18 04:27
--- NOTE | 2018-07-13 14:46 | RAD ---
Date of service: 07/13/2018 HISTORY: intubated COMPARISON: 07/12/2018 TECHNIQUE: 1 view obtained. FINDINGS: LUNGS: No active pulmonary disease. PLEURA: Possible small left pleural effusion. No right pleural effusion. No pneumothorax. CARDIOVASCULAR: There is atherosclerotic calcification of the thoracic aorta. Normal heart size. ET tube positioned with its tip approximately 1 cm above the tracheal horacio. This should be repositioned more proximally. NG tube extends to central abdomen. Permanent pacemaker. No pulmonary vascular congestion. OSSEOUS STRUCTURES: No significant abnormalities. VISUALIZED UPPER ABDOMEN: Normal. OTHER FINDINGS: None. IMPRESSION: Possible small left pleural effusion. ET tube tip is 1 cm above the tracheal horacio and should be repositioned more proximally. The findings were discussed by telephone with Charlie Aleman at 2:40 p.m. on 07/13/2018.
--- NOTE | 2018-07-13 15:04 | CP.PCM.PN ---
Subjective - Date & Time of Evaluation Date of Evaluation: 07/13/18 Time of Evaluation: 14:30 - Subjective Subjective: Patient was seen and examined at the bedside. Remains to intubated on the ventilator. Objective - Vital Signs/Intake and Output Vital Signs (last 24 hours): Temp Pulse Resp BP Pulse Ox 99.1 F 135 H 18 161/98 H 100 07/13/18 12:00 07/13/18 12:00 07/13/18 12:00 07/13/18 12:00 07/13/18 12:00 Intake and Output: 07/13/18 07/13/18 06:59 18:59 Intake Total 650 300 Output Total 150 60 Balance 500 240 - Medications Medications: Current Medications Acetaminophen (Tylenol 650mg/20.3ml Solution Ud) 650 mg PO Q6 PRN PRN Reason: fever Enoxaparin Sodium (Lovenox) 30 mg SC DAILY [facility]; Protocol Last Admin: 07/08/18 09:10 Dose: 30 mg Piperacillin Sod/Tazobactam (Sod 2.25 gm/ Sodium Chloride) 100 mls @ 100 mls/hr IVPB Q12 [facility]; Protocol Last Admin: 07/13/18 08:17 Dose: 100 mls/hr Meropenem 500 mg/ Sodium (Chloride) 100 mls @ 100 mls/hr IVPB Q12H [facility]; Protocol Last Admin: 07/13/18 12:41 Dose: 100 mls/hr Insulin Human Lispro (Humalog) 0 units SC ACHS [facility]; Protocol Last Admin: 07/13/18 12:39 Dose: Not Given Ipratropium [place] (Atrovent) 0.5 mg IH RQ6 [facility] Last Admin: 07/13/18 13:38 Dose: 0.5 mg Latanoprost (Xalatan Opht) 1 drop OD HS [facility] Last Admin: 07/12/18 21:47 Dose: 1 drop Metoprolol Tartrate (Lopressor) 5 mg IVP Q6 [facility] Last Admin: 07/13/18 09:28 Dose: 5 mg Ondansetron HCl (Zofran Inj) 4 mg IVP Q6 PRN PRN Reason: Nausea/Vomiting Pantoprazole Sodium (Protonix Inj) 40 mg IVP DAILY [facility] Last Admin: 07/13/18 08:16 Dose: 40 mg - Labs Labs: 07/13/18 05:21 07/13/18 05:21 PT 16.1 Seconds (9.8-13.1) H 07/12/18 04:27 INR 1.4 07/12/18 04:27 APTT 35.2 Seconds (25.6-37.1) 07/12/18 04:27 - Constitutional Appears: Non-toxic - Head Exam Head Exam: ATRAUMATIC, NORMAL INSPECTION, NORMOCEPHALIC - ENT Exam ENT Exam: Mucous Membranes Moist - Respiratory Exam Respiratory Exam: Clear to Ausculation Bilateral, NORMAL BREATHING PATTERN - Cardiovascular Exam Cardiovascular Exam: Tachycardia, +S1, +S2 - GI/Abdominal Exam GI & Abdominal Exam: Soft, Normal Bowel Sounds Additional comments: NT, ND, no rebound, no guarding, echymosis to the right side of the abdomen, incisions clean, no erythema, no drainage, dermobond in place - Rectal Exam Rectal Exam: Deferred - Extremities Exam Extremities Exam: Normal Inspection - Skin Skin Exam: Dry, Intact, Normal Color, Warm Assessment and Plan - Assessment and Plan (Free Text) Assessment: 78 y.o. male s/p Laparoscopic cholecystectomy s/p cardiac and respiratory arrest Plan: - Continue ventilator support - Monitor hemodynemically - Monitor Hb/Hct, transfuse as needed - Continue antibiotics as per ID - Neurology and Nephrology follow up - Repeat labs in am - Hold anticoagulation for now - Will follow
--- NOTE | 2018-07-13 16:52 | CP.CCUPN ---
CCU Subjective - Physician Review Events Since Last Encounter (Free Text): 07/13/18 16:47 vegetative state, grimaces to deep painful stimuli. CCU Objective - Vital Signs / Intake & Output Vital Signs (Last 4 hours): Vital Signs Temp Pulse Resp BP Pulse Ox 07/13/18 16:16 148 H 155/91 H 07/13/18 16:00 98.8 F 142 H 21 155/91 H 100 Intake and Output (Last 8hrs): Intake & Output 07/13/18 07/13/18 07/13/18 06:59 14:59 22:59 Intake Total 450 300 Output Total 150 60 Balance 300 240 Weight 155 lb Intake: IV 350 300 Intake, Piggyback 100 Output: Urine 150 60 Urethral (Villa) 150 60 - Physical Exam Head: Positive for: Atraumatic Pupils: Positive for: Non-Reactive Extroacular Muscles: Negative for: EOMI, Gaze Palsy Mouth: Positive for: Moist Mucous Membranes Nose (External): Positive for: Atraumatic Respiratory/Chest: Positive for: Rhonchi Abdomen: Positive for: Distention, Normal Bowel Sounds, Other (Right sided ecchymosis extending to both upper and lower quadrants. Unable to assess pain. ) Genitourinary Male: Positive for: Testicle Swelling (significant scrotal edema) Upper Extremity: Positive for: Capillary Refill < 2s. Negative for: Edema Lower Extremity: Negative for: Edema Neurological: Positive for: Other (on ventilator, no response to any stimuli) Skin: Positive for: Normal Color Psychiatric: Negative for: Alert (GCS3), Oriented x 3 - Medications Active Medications: Active Medications Generic Name Dose Route Start Last Admin Trade Name Freq PRN Reason Stop Dose Admin Acetaminophen 650 mg 07/12/18 05:22 Tylenol 650mg/20.3ml Solution Ud PO Q6 PRN fever Enoxaparin Sodium 30 mg 07/05/18 09:00 07/08/18 09:10 Lovenox SC 30 mg DAILY ANTONY Administration Protocol Piperacillin Sod/Tazobactam 100 mls @ 100 mls/hr 07/10/18 21:00 07/13/18 08:17 Sod 2.25 gm/ Sodium Chloride IVPB 100 mls/hr Q12 ANTONY Administration Protocol Meropenem 500 mg/ Sodium 100 mls @ 100 mls/hr 07/10/18 13:15 07/13/18 12:41 Chloride IVPB 100 mls/hr Q12H ANTONY Administration Protocol Insulin Human Lispro 0 units 07/09/18 07:30 07/13/18 12:39 Humalog SC Not Given ACHS ANTONY Protocol Ipratropium [place] 0.5 mg 07/10/18 14:00 07/13/18 13:38 Atrovent IH 0.5 mg RQ6 ANTONY Administration Latanoprost 1 drop 07/04/18 22:00 07/12/18 21:47 Xalatan Opht OD 1 drop HS ANTONY Administration Metoprolol Tartrate 5 mg 07/11/18 10:00 07/13/18 16:16 Lopressor IVP 5 mg Q6 ANTONY Administration Ondansetron HCl 4 mg 07/04/18 08:08 Zofran Inj IVP Q6 PRN Nausea/Vomiting Pantoprazole Sodium 40 mg 07/12/18 09:00 07/13/18 08:16 Protonix Inj IVP 40 mg DAILY ANTONY Administration - Patient Studies Lab Studies: Microbiology Studies 07/10/18 13:10 Blood Culture - Preliminary Blood-Venous NO GROWTH AFTER 3 DAYS 07/10/18 13:00 Blood Culture - Preliminary Blood-Venous NO GROWTH AFTER 3 DAYS Lab Studies 07/13/18 07/13/18 07/13/18 Range/Units 06:14 05:39 05:21 WBC (4.8-10.8) K/uL RBC (4.40-5.90) Mil/uL Hgb (12.0-18.0) g/dL Hct (35.0-51.0) % MCV (80.0-94.0) fl MCH (27.0-31.0) pg MCHC (33.0-37.0) g/dL RDW (11.5-14.5) % Plt Count (130-400) K/uL MPV (7.2-11.7) fl Neut % (Auto) (50.0-75.0) % Lymph % (Auto) (20.0-40.0) % [place] % (Auto) (0.0-10.0) % Eos % (Auto) (0.0-4.0) % Baso % (Auto) (0.0-2.0) % Neut # (Auto) (1.8-7.0) K/uL Lymph # (Auto) (1.0-4.3) K/uL [place] # (Auto) (0.0-0.8) K/uL Eos # (Auto) (0.0-0.7) K/uL Baso # (Auto) (0.0-0.2) K/uL pCO2 23 L (35-45) mm/Hg pO2 175 H (80-100) mm/Hg HCO3 17.5 L (21-28) mmol/L ABG pH 7.39 (7.35-7.45) ABG Total CO2 14.6 L (22-28) mmol/L ABG O2 Saturation 100.1 H (95-98) % ABG O2 Content 13.5 L (15-23) ML/dL ABG Base Excess -9.6 L (-2.0-3.0) mmol/L ABG Hemoglobin 9.6 L (11.7-17.4) g/dL ABG Carboxyhemoglobin 1.7 H (0.5-1.5) % POC ABG HHb (Measured) -0.1 L (0.0-5.0) % ABG Methemoglobin 1.1 (0.0-3.0) % ABG O2 Capacity 13.5 L (16-24) mL/dL Van Test Yes A-a O2 Difference 81.0 mm/Hg Hgb O2 Saturation 97.2 (95.0-98.0) % Vent Mode Prvc/ac Mechanical Rate 12 FiO2 40.0 % Tidal Volume 450 PEEP 5 Sodium 142 (132-148) mmol/l Potassium 4.3 (3.6-5.0) MMOL/L Chloride 109 H (98-107) mmol/L Carbon Dioxide 15 L (22-30) mmol/L Anion Gap 22 H (10-20) BUN 80 H (9-20) mg/dl Creatinine 6.0 H (0.8-1.5) mg/dl Est GFR ( Amer) 11 Est GFR (Non-Af Amer) 9 POC Glucose (mg/dL) 148 H (65-110) mg/dL Random Glucose 145 H (75-110) mg/dL Calcium 6.9 L (8.4-10.2) mg/dL Crossmatch 07/13/18 07/13/18 07/12/18 Range/Units 05:21 00:54 16:02 WBC 22.3 H (4.8-10.8) K/uL RBC 3.05 L (4.40-5.90) Mil/uL Hgb 9.1 L (12.0-18.0) g/dL Hct 27.5 L (35.0-51.0) % MCV 90.3 (80.0-94.0) fl MCH 30.0 (27.0-31.0) pg MCHC 33.2 (33.0-37.0) g/dL RDW 17.0 H (11.5-14.5) % Plt Count 77 L (130-400) K/uL MPV 9.4 (7.2-11.7) fl Neut % (Auto) 88.6 H (50.0-75.0) % Lymph % (Auto) 6.1 L (20.0-40.0) % [place] % (Auto) 4.4 (0.0-10.0) % Eos % (Auto) 0.6 (0.0-4.0) % Baso % (Auto) 0.3 (0.0-2.0) % Neut # (Auto) 19.7 H (1.8-7.0) K/uL Lymph # (Auto) 1.4 (1.0-4.3) K/uL [place] # (Auto) 1.0 H (0.0-0.8) K/uL Eos # (Auto) 0.1 (0.0-0.7) K/uL Baso # (Auto) 0.1 (0.0-0.2) K/uL pCO2 (35-45) mm/Hg pO2 (80-100) mm/Hg HCO3 (21-28) mmol/L ABG pH (7.35-7.45) ABG Total CO2 (22-28) mmol/L ABG O2 Saturation (95-98) % ABG O2 Content (15-23) ML/dL ABG Base Excess (-2.0-3.0) mmol/L ABG Hemoglobin (11.7-17.4) g/dL ABG Carboxyhemoglobin (0.5-1.5) % POC ABG HHb (Measured) (0.0-5.0) % ABG Methemoglobin (0.0-3.0) % ABG O2 Capacity (16-24) mL/dL Van Test A-a O2 Difference mm/Hg Hgb O2 Saturation (95.0-98.0) % Vent Mode Mechanical Rate FiO2 % Tidal Volume PEEP Sodium (132-148) mmol/l Potassium (3.6-5.0) MMOL/L Chloride (98-107) mmol/L Carbon Dioxide (22-30) mmol/L Anion Gap (10-20) BUN (9-20) mg/dl Creatinine (0.8-1.5) mg/dl Est GFR ( Amer) Est GFR (Non-Af Amer) POC Glucose (mg/dL) 135 H 149 H (65-110) mg/dL Random Glucose (75-110) mg/dL Calcium (8.4-10.2) mg/dL Crossmatch 07/12/18 07/08/18 Range/Units 11:43 06:25 WBC (4.8-10.8) K/uL RBC (4.40-5.90) Mil/uL Hgb (12.0-18.0) g/dL Hct (35.0-51.0) % MCV (80.0-94.0) fl MCH (27.0-31.0) pg MCHC (33.0-37.0) g/dL RDW (11.5-14.5) % Plt Count (130-400) K/uL MPV (7.2-11.7) fl Neut % (Auto) (50.0-75.0) % Lymph % (Auto) (20.0-40.0) % [place] % (Auto) (0.0-10.0) % Eos % (Auto) (0.0-4.0) % Baso % (Auto) (0.0-2.0) % Neut # (Auto) (1.8-7.0) K/uL Lymph # (Auto) (1.0-4.3) K/uL [place] # (Auto) (0.0-0.8) K/uL Eos # (Auto) (0.0-0.7) K/uL Baso # (Auto) (0.0-0.2) K/uL pCO2 (35-45) mm/Hg pO2 (80-100) mm/Hg HCO3 (21-28) mmol/L ABG pH (7.35-7.45) ABG Total CO2 (22-28) mmol/L ABG O2 Saturation (95-98) % ABG O2 Content (15-23) ML/dL ABG Base Excess (-2.0-3.0) mmol/L ABG Hemoglobin (11.7-17.4) g/dL ABG Carboxyhemoglobin (0.5-1.5) % POC ABG HHb (Measured) (0.0-5.0) % ABG Methemoglobin (0.0-3.0) % ABG O2 Capacity (16-24) mL/dL Van Test A-a O2 Difference mm/Hg Hgb O2 Saturation (95.0-98.0) % Vent Mode Mechanical Rate FiO2 % Tidal Volume PEEP Sodium (132-148) mmol/l Potassium (3.6-5.0) MMOL/L Chloride (98-107) mmol/L Carbon Dioxide (22-30) mmol/L Anion Gap (10-20) BUN (9-20) mg/dl Creatinine (0.8-1.5) mg/dl Est GFR ( Amer) Est GFR (Non-Af Amer) POC Glucose (mg/dL) 147 H (65-110) mg/dL Random Glucose (75-110) mg/dL Calcium (8.4-10.2) mg/dL Crossmatch See Detail Laboratory Results - last 24 hr 07/08/18 07/12/18 07/12/18 06:25 11:43 16:02 WBC RBC Hgb Hct MCV MCH MCHC RDW Plt Count MPV Neut % (Auto) Lymph % (Auto) [place] % (Auto) Eos % (Auto) Baso % (Auto) Neut # (Auto) Lymph # (Auto) [place] # (Auto) Eos # (Auto) Baso # (Auto) pCO2 pO2 HCO3 ABG pH ABG Total CO2 ABG O2 Saturation ABG O2 Content ABG Base Excess ABG Hemoglobin ABG Carboxyhemoglobin POC ABG HHb (Measured) ABG Methemoglobin ABG O2 Capacity Van Test A-a O2 Difference Hgb O2 Saturation Vent Mode Mechanical Rate FiO2 Tidal Volume PEEP Sodium Potassium Chloride Carbon Dioxide Anion Gap BUN Creatinine Est GFR ( Amer) Est GFR (Non-Af Amer) POC Glucose (mg/dL) 147 H 149 H Random Glucose Calcium Crossmatch See Detail 07/13/18 07/13/18 07/13/18 00:54 05:21 05:21 WBC 22.3 H RBC 3.05 L Hgb 9.1 L Hct 27.5 L MCV 90.3 MCH 30.0 MCHC 33.2 RDW 17.0 H Plt Count 77 L MPV 9.4 Neut % (Auto) 88.6 H Lymph % (Auto) 6.1 L [place] % (Auto) 4.4 Eos % (Auto) 0.6 Baso % (Auto) 0.3 Neut # (Auto) 19.7 H Lymph # (Auto) 1.4 [place] # (Auto) 1.0 H Eos # (Auto) 0.1 Baso # (Auto) 0.1 pCO2 pO2 HCO3 ABG pH ABG Total CO2 ABG O2 Saturation ABG O2 Content ABG Base Excess ABG Hemoglobin ABG Carboxyhemoglobin POC ABG HHb (Measured) ABG Methemoglobin ABG O2 Capacity Van Test A-a O2 Difference Hgb O2 Saturation Vent Mode Mechanical Rate FiO2 Tidal Volume PEEP Sodium 142 Potassium 4.3 Chloride 109 H Carbon Dioxide 15 L Anion Gap 22 H BUN 80 H Creatinine 6.0 H Est GFR ( Amer) 11 Est GFR (Non-Af Amer) 9 POC Glucose (mg/dL) 135 H Random Glucose 145 H Calcium 6.9 L Crossmatch 07/13/18 07/13/18 05:39 06:14 WBC RBC Hgb Hct MCV MCH MCHC RDW Plt Count MPV Neut % (Auto) Lymph % (Auto) [place] % (Auto) Eos % (Auto) Baso % (Auto) Neut # (Auto) Lymph # (Auto) [place] # (Auto) Eos # (Auto) Baso # (Auto) pCO2 23 L pO2 175 H HCO3 17.5 L ABG pH 7.39 ABG Total CO2 14.6 L ABG O2 Saturation 100.1 H ABG O2 Content 13.5 L ABG Base Excess -9.6 L ABG Hemoglobin 9.6 L ABG Carboxyhemoglobin 1.7 H POC ABG HHb (Measured) -0.1 L ABG Methemoglobin 1.1 ABG O2 Capacity 13.5 L Van Test Yes A-a O2 Difference 81.0 Hgb O2 Saturation 97.2 Vent Mode Prvc/ac Mechanical Rate 12 FiO2 40.0 Tidal Volume 450 PEEP 5 Sodium Potassium Chloride Carbon Dioxide Anion Gap BUN Creatinine Est GFR ( Amer) Est GFR (Non-Af Amer) POC Glucose (mg/dL) 148 H Random Glucose Calcium Crossmatch Radiology Impressions: Radiology Impressions Chest X-Ray 07/13/18 06:00 IMPRESSION: Possible small left pleural effusion. ET tube tip is 1 cm above the tracheal horacio and should be repositioned more proximally. The findings were discussed by telephone with Charlie Aleman at 2:40 p.m. on 07/13/2018. Fingerstick Blood Sugar Results: 136 Review of Systems - Review of Systems Systems not reviewed;Unavailable: Altered Mental Status Assessment/Plan (1) Anoxic brain injury Assessment and plan: Pt is an 78 y/o male with hx of recent Lap Kylah POD#3, hx of CAD (s/p CABG), CHF w/ reduced EF (25-30%), HTN, DM, CDK stage III, and COPD admitted to ICU s/p cardiac arrest. On Post Op Day #3 pt was noted to be in acute distress, complaining of abdominal pain for which he received analgesics and Haldol. Shortly after, pt was noted to be unresponsive w/o pulse. ACLS protocol was initiated, pt received multiple rounds of Epi and ROSC was achieved. Pt was noted to have hemoglobin of 5 w/ witnessed Melena and received 2 units PRBC and FFP transfusion with repeat Hg 10. Pt is currently comatose GCS3 with multiorgan failure. Active discussions held regarding goals of care with family. #Neuro - GCS 3 - No sedatives - PE exam findings strongly suggestive of anoxic brain injury. - Neurology consulted, Dr. Morgan - Head CT and VEEG pending #Cardiac - Levophed weaned off, BP stable Lactic acid trending down - Actively Afibb w/ RVR. Lopressor 5mg q6 standing as per Cardio and restart oral Lopressor in evening - Hypotension may have been due to acute blood loss vs septic shock.Cardiogenic shock less likely as SVO2>70% - Troponin 1.44. Discussed with Dr. Onofre. May be as a result of CPR - Continue monitoring vitals - On Xarelto for afibf but held in light of possible GI bleed #Pulm - Intubated on MV FIO2 40% - ABG stable, metabolic acidosis resolved #Renal - Hx of CKD Stage III now in acute renal failure. Likely Prerenal 2/2 to prolonged hypotensive state - Crea 2.2 >2.6>3.3. BUN 36. Electrolytes stable - low urine output<100cc/24 despite receiving 3L - High dose Lasix challenge 120mg IV. If responds will consider starting ggt - Nephrology consulted. Dr. Castillo. Recommendations appreciated. Metalazone started #GI - S/P Lap choley on 07/07 - Severe transaminitis/shock liver likely from shock state - On exam-- Moderately sized ecchymosis along surgical site raises suspicion of internal bleed from recent operation, though unable to confirm chronicity. Cannot confirm with CT Angio due to renal function - Stool guiac (+) - C/W protonix for ppx - Surgery following case Heme/ID - Hg stable 8.2 - S/P transfusion of 2 units PRBC - Platelets 56 - Coagulaopathy: INR 1.7 s/p 2 units FFP - Afebrile, leukocytosis 18.2. Bandemia 18 on 07/10 suggesting active infection - Bcx pending - Ucx no growth final - ID consulted - C/W Vanco and Merrem Will obtain nuclear brain flow study tomorrow. If no flow, family will most likely stop further treatment and terminally extubate. Critical Care time spent 35 minutes Multi-disciplinary rounds were performed with house staff, nursing, speech therapy, respiratory therapy, pharmacy and nutrition with integrated input from the primary team/attending and other consulting services. The documented time is cumulative and includes review of patient data/exams/labs/chart review and examination of the patient on rounds and throughout the day; time is exclusive of any procedures or teaching time. Current Visit: Yes Status: Acute
[2018-07-13] MEDS: Latanoprost 0.005% Opht SOUTION OD SCH (21:27)
[2018-07-14] MEDS: Meropenem 500 MG in Sodium Chloride 0.9% 100 ML IVPB SCH ×2 (01:34→18:47)
[2018-07-14] MEDS ORDERED: Metoprolol 1 mg/ml Inj IVP ONE (01:40)
[2018-07-14] MEDS ORDERED: Metoprolol 1 mg/ml Inj IVP STA (02:41)
[2018-07-14] MEDS: Ipratropium 0.02% Inhal Soln (0.5 mg/2.5 ml) UD IH SCH ×3 (03:15→18:38)
[2018-07-14] MEDS: Metoprolol 1 mg/ml Inj IVP SCH (03:47)
[2018-07-14 05:12] LABS: ABG ALLEN TEST YES; ARTERIAL BLOOD GAS HCO3 17.7 mmol/L (21-28); ARTERIAL BLOOD GAS HEMOGLOBIN 9.7 g/dL (11.7-17.4); ARTERIAL BLOOD GAS O2 CAPACITY 13.7 mL/dL (16-24); ARTERIAL BLOOD GAS O2 CONTENT 13.7 ML/dL (15-23); ARTERIAL BLOOD GAS O2 SAT 100.3 % (95-98); ARTERIAL BLOOD GAS PCO2 21 mm/Hg (35-45); ARTERIAL BLOOD GAS PH 7.42 (7.35-7.45); ARTERIAL BLOOD GAS PO2 185 mm/Hg (80-100); ARTERIAL BLOOD GAS TCO2 14.2 mmol/L (22-28)
[2018-07-14 05:39] LABS: BASO % 0.2 % (0.0-2.0); EOS # 0.1 K/uL (0.0-0.7); EOS % 0.5 % (0.0-4.0); HEMOGLOBIN 9.6 g/dL (12.0-18.0); LYMPH # 1.4 K/uL (1.0-4.3); LYMPH % 6.6 % (20.0-40.0); MEAN CELL VOLUME 90.4 fl (80.0-94.0); MEAN CORPUSCULAR HEMOGLOBIN 30.2 pg (27.0-31.0); MEAN CORPUSCULAR HGB CONC 33.4 g/dL (33.0-37.0); MEAN PLATELET VOLUME 9.1 fl (7.2-11.7); MONO % 4.7 % (0.0-10.0); NEUT # 19.2 K/uL (1.8-7.0); NRBC % 2.3 % (0.0-0.0); RBC 3.18 Mil/uL (4.40-5.90); RED CELL DISTRIBUTION WIDTH 17.2 % (11.5-14.5); WHITE BLOOD COUNT 21.8 K/uL (4.8-10.8)
[2018-07-14 06:10] LABS: ALB/GLOB RATIO 0.8 (1.0-2.1); ALBUMIN 2.8 g/dL (3.5-5.0); CALCIUM 7.3 mg/dL (8.4-10.2)
[2018-07-14] MEDS: Insulin Lispro (humaLOG) 100 Units/ml Inj SC SCH ×3 (07:16→18:47)
--- NOTE | 2018-07-14 07:31 | CP.PCM.PN ---
<VinnieDelonte - Last Filed: 07/14/18 07:31> Subjective - Date & Time of Evaluation Date of Evaluation: 07/14/18 Time of Evaluation: 07:29 - Subjective Subjective: Surgery Progress Note for Dr. Omer 78M seen and evaluated at bedside this morning. No acute events overnight. GCS 3T, minimal urine output however nurse states patient had small, soft green bowel movement. Patient remains intubated on mechanical ventilation, no recent change in vent settings. ROS unobtainable 2/2 mental status. Objective - Vital Signs/Intake and Output Vital Signs (last 24 hours): Temp Pulse Resp BP Pulse Ox 99.0 F 152 H 25 H 147/93 H 100 07/14/18 06:00 07/14/18 06:00 07/14/18 06:00 07/14/18 06:00 07/14/18 06:00 Intake and Output: 07/14/18 07/14/18 06:59 18:59 Intake Total 700 Output Total 175 Balance 525 - Medications Medications: Current Medications Acetaminophen (Tylenol 650mg/20.3ml Solution Ud) 650 mg PO Q6 PRN PRN Reason: fever Enoxaparin Sodium (Lovenox) 30 mg SC DAILY ANTONY; Protocol Last Admin: 07/08/18 09:10 Dose: 30 mg Piperacillin Sod/Tazobactam (Sod 2.25 gm/ Sodium Chloride) 100 mls @ 100 mls/hr IVPB Q12 ANTONY; Protocol Last Admin: 07/13/18 21:28 Dose: 100 mls/hr Meropenem 500 mg/ Sodium (Chloride) 100 mls @ 100 mls/hr IVPB Q12H ANTONY; Protocol Last Admin: 07/14/18 01:34 Dose: 100 mls/hr Insulin Human Lispro (Humalog) 0 units SC ACHS ANTONY; Protocol Last Admin: 07/14/18 07:16 Dose: Not Given Ipratropium [place] (Atrovent) 0.5 mg IH RQ6 ANTONY Last Admin: 07/14/18 03:15 Dose: 0.5 mg Latanoprost (Xalatan Opht) 1 drop OD HS ANTONY Last Admin: 07/13/18 21:27 Dose: 1 drop Metoprolol Tartrate (Lopressor) 5 mg IVP Q6 ANTONY Last Admin: 07/14/18 03:47 Dose: 5 mg Ondansetron HCl (Zofran Inj) 4 mg IVP Q6 PRN PRN Reason: Nausea/Vomiting Pantoprazole Sodium (Protonix Inj) 40 mg IVP DAILY ANTONY Last Admin: 07/13/18 08:16 Dose: 40 mg - Labs Labs: 07/14/18 04:20 07/14/18 04:20 PT 16.1 Seconds (9.8-13.1) H 07/12/18 04:27 INR 1.4 07/12/18 04:27 APTT 35.2 Seconds (25.6-37.1) 07/12/18 04:27 - Constitutional Appears: Chronically Ill - Head Exam Head Exam: ATRAUMATIC, NORMAL INSPECTION, NORMOCEPHALIC - Eye Exam Eye Exam: absent: EOMI Pupil Exam: Fixed - ENT Exam ENT Exam: Mucous Membranes Dry - Respiratory Exam Additional comments: mechanical ventilation - Cardiovascular Exam Cardiovascular Exam: Tachycardia - GI/Abdominal Exam GI & Abdominal Exam: Soft. absent: Distended Additional comments: right sided flank to lower quadrant ecchymosis Assessment and Plan - Assessment and Plan (Free Text) Assessment: 78M who is s/p lap ana maria with IOC POD#7 s/p cardiac arrest now with anemia, acut e respiratory failure, APURVA, and anoxic brain injury Plan: Hemoglobin has stabilized Continue to hold anticoagulation IV hydration Feeding as per ICU FU Cardiology FU Nephrology FU Neurology - CT and MRI of head today Recommend establishing goals of care Medical management as per ICU Further recommendations as per Dr. Kan [place] PGY1 <Ge Omer - Last Filed: 07/14/18 10:18> Objective - Vital Signs/Intake and Output Vital Signs (last 24 hours): Temp Pulse Resp BP Pulse Ox 98.8 F 141 H 18 158/85 H 100 07/14/18 08:00 07/14/18 10:00 07/14/18 10:00 07/14/18 10:00 07/14/18 10:00 Intake and Output: 07/14/18 07/14/18 06:59 18:59 Intake Total 700 100 Output Total 175 Balance 525 100 - Medications Medications: Current Medications Acetaminophen (Tylenol 650mg/20.3ml Solution Ud) 650 mg PO Q6 PRN PRN Reason: fever Enoxaparin Sodium (Lovenox) 30 mg SC DAILY [facility]; Protocol Last Admin: 07/08/18 09:10 Dose: 30 mg Piperacillin Sod/Tazobactam (Sod 2.25 gm/ Sodium Chloride) 100 mls @ 100 mls/hr IVPB Q12 ANTONY; Protocol Last Admin: 07/14/18 08:54 Dose: 100 mls/hr Meropenem 500 mg/ Sodium (Chloride) 100 mls @ 100 mls/hr IVPB Q12H ANTONY; Protocol Last Admin: 07/14/18 01:34 Dose: 100 mls/hr Insulin Human Lispro (Humalog) 0 units SC ACHS ANTONY; Protocol Last Admin: 07/14/18 07:16 Dose: Not Given Ipratropium [place] (Atrovent) 0.5 mg IH RQ6 [facility] Last Admin: 07/14/18 08:01 Dose: 0.5 mg Latanoprost (Xalatan Opht) 1 drop OD HS ANTONY Last Admin: 07/13/18 21:27 Dose: 1 drop Metoprolol Tartrate (Lopressor) 5 mg IVP Q6 [facility] Last Admin: 07/14/18 03:47 Dose: 5 mg Ondansetron HCl (Zofran Inj) 4 mg IVP Q6 PRN PRN Reason: Nausea/Vomiting Pantoprazole Sodium (Protonix Inj) 40 mg IVP DAILY [facility] Last Admin: 07/14/18 08:53 Dose: 40 mg - Labs Labs: 07/14/18 04:20 07/14/18 04:20 PT 16.1 Seconds (9.8-13.1) H 07/12/18 04:27 INR 1.4 07/12/18 04:27 APTT 35.2 Seconds (25.6-37.1) 07/12/18 04:27 Assessment and Plan - Assessment and Plan (Free Text) Plan: seen at bedside, no overnight events. Pt remains intubated, poorly responsive. Hemoglobin states gen: intubated, poorly responsive resp: intubated card: irregular, afib abd: soft, minimal distention, non ridig, right flank ecchymosis 78 yo M s/p laparoscopic cholecystectomy, GI bleed s/p cardiac arrest -cont ICu management -monitor HH -f/u neurology -f/u nephrology
--- NOTE | 2018-07-14 08:39 | RAD ---
Date of service: 07/14/2018 HISTORY: Pt intubated COMPARISON: 07/13/2018 TECHNIQUE: 1 view obtained. FINDINGS: LUNGS: No active pulmonary disease. PLEURA: Small left pleural effusion. No right pleural effusion. No pneumothorax. CARDIOVASCULAR: No aortic atherosclerotic calcification present. Normal heart size. CABG. ET tube, NG tube and permanent pacemaker are all noted without interval change. Questionable mild congestive change. OSSEOUS STRUCTURES: No significant abnormalities. VISUALIZED UPPER ABDOMEN: Normal. OTHER FINDINGS: None. IMPRESSION: Small left pleural effusion. No infiltrate. Questionable mild congestive change.
--- NOTE | 2018-07-14 08:55 | CP.PCM.PN ---
Subjective - Date & Time of Evaluation Date of Evaluation: 07/14/18 Time of Evaluation: 08:55 - Subjective Subjective: Seen on morning rouinds in the intensive care unit. Case was discussed with thermodynamic physicist. Morning labs and chest x-ray were reviewed. Remains unresponsive, mechanically ventilated. Vent rate set at 12, RR 19. Suctioned thick brown secretions from ETT. + cough with deep suctioning. Breath sounds are present bilaterally. Rhochi are heard in both lower lobes posteriorly, L>R. No audible wheezes or bronchial breath sounds. Scattered medium rales are present in dependant zones posteriorly. No ventilator changes planned at this time, pending neurology determination. Family was at the bedside and advised of same. Objective - Vital Signs/Intake and Output Vital Signs (last 24 hours): Temp Pulse Resp BP Pulse Ox 98.8 F 126 H 20 142/89 100 07/14/18 08:00 07/14/18 08:00 07/14/18 08:00 07/14/18 08:00 07/14/18 08:00 Intake and Output: 07/13/18 07/14/18 23:59 11:59 Intake Total 650 550 Output Total 60 175 Balance 590 375 - Medications Medications: Current Medications Acetaminophen (Tylenol 650mg/20.3ml Solution Ud) 650 mg PO Q6 PRN PRN Reason: fever Enoxaparin Sodium (Lovenox) 30 mg SC DAILY ANTONY; Protocol Last Admin: 07/08/18 09:10 Dose: 30 mg Piperacillin Sod/Tazobactam (Sod 2.25 gm/ Sodium Chloride) 100 mls @ 100 mls/hr IVPB Q12 ANTONY; Protocol Last Admin: 07/14/18 08:54 Dose: 100 mls/hr Meropenem 500 mg/ Sodium (Chloride) 100 mls @ 100 mls/hr IVPB Q12H ANTONY; Protocol Last Admin: 07/14/18 01:34 Dose: 100 mls/hr Insulin Human Lispro (Humalog) 0 units SC ACHS ANTONY; Protocol Last Admin: 07/14/18 07:16 Dose: Not Given Ipratropium [place] (Atrovent) 0.5 mg IH RQ6 ANTONY Last Admin: 07/14/18 08:01 Dose: 0.5 mg Latanoprost (Xalatan Opht) 1 drop OD HS ANTONY Last Admin: 07/13/18 21:27 Dose: 1 drop Metoprolol Tartrate (Lopressor) 5 mg IVP Q6 [facility] Last Admin: 07/14/18 03:47 Dose: 5 mg Ondansetron HCl (Zofran Inj) 4 mg IVP Q6 PRN PRN Reason: Nausea/Vomiting Pantoprazole Sodium (Protonix Inj) 40 mg IVP DAILY [facility] Last Admin: 07/14/18 08:53 Dose: 40 mg - Labs Labs: 07/14/18 04:20 07/14/18 04:20 PT 16.1 Seconds (9.8-13.1) H 07/12/18 04:27 INR 1.4 07/12/18 04:27 APTT 35.2 Seconds (25.6-37.1) 07/12/18 04:27 Assessment and Plan (1) HCAP (healthcare-associated pneumonia) Status: Acute (2) Acute blood loss anemia Status: Acute (3) COPD (chronic obstructive pulmonary disease) Status: Chronic (4) Respiratory failure Status: Acute (5) On mechanically assisted ventilation Status: Acute (6) Altered mental status Status: Acute
--- NOTE | 2018-07-14 09:32 | CP.PCM.PN ---
Subjective - Date & Time of Evaluation Date of Evaluation: 07/14/18 Time of Evaluation: 09:32 - Subjective Subjective: Patient unresponsive? Many relatives of his family at the bedside Vital signs noted Objective - Vital Signs/Intake and Output Vital Signs (last 24 hours): Temp Pulse Resp BP Pulse Ox 98.8 F 126 H 20 142/89 100 07/14/18 08:00 07/14/18 08:00 07/14/18 08:00 07/14/18 08:00 07/14/18 08:00 Intake and Output: 07/14/18 07/14/18 06:59 18:59 Intake Total 700 100 Output Total 175 Balance 525 100 - Medications Medications: Current Medications Acetaminophen (Tylenol 650mg/20.3ml Solution Ud) 650 mg PO Q6 PRN PRN Reason: fever Enoxaparin Sodium (Lovenox) 30 mg SC DAILY ANTONY; Protocol Last Admin: 07/08/18 09:10 Dose: 30 mg Piperacillin Sod/Tazobactam (Sod 2.25 gm/ Sodium Chloride) 100 mls @ 100 mls/hr IVPB Q12 ANTONY; Protocol Last Admin: 07/14/18 08:54 Dose: 100 mls/hr Meropenem 500 mg/ Sodium (Chloride) 100 mls @ 100 mls/hr IVPB Q12H ANTONY; Protocol Last Admin: 07/14/18 01:34 Dose: 100 mls/hr Insulin Human Lispro (Humalog) 0 units SC ACHS ANTONY; Protocol Last Admin: 07/14/18 07:16 Dose: Not Given Ipratropium [place] (Atrovent) 0.5 mg IH RQ6 ANTONY Last Admin: 07/14/18 08:01 Dose: 0.5 mg Latanoprost (Xalatan Opht) 1 drop OD HS ANTONY Last Admin: 07/13/18 21:27 Dose: 1 drop Metoprolol Tartrate (Lopressor) 5 mg IVP Q6 ANTONY Last Admin: 07/14/18 03:47 Dose: 5 mg Ondansetron HCl (Zofran Inj) 4 mg IVP Q6 PRN PRN Reason: Nausea/Vomiting Pantoprazole Sodium (Protonix Inj) 40 mg IVP DAILY ANTONY Last Admin: 07/14/18 08:53 Dose: 40 mg - Labs Labs: 07/14/18 04:20 07/14/18 04:20 PT 16.1 Seconds (9.8-13.1) H 07/12/18 04:27 INR 1.4 07/12/18 04:27 APTT 35.2 Seconds (25.6-37.1) 07/12/18 04:27 - Constitutional Appears: No Acute Distress, Cachectic - Eye Exam Eye Exam: Conjunctival injection - ENT Exam ENT Exam: Mucous Membranes Moist - Neck Exam Neck Exam: absent: Lymphadenopathy - Respiratory Exam Respiratory Exam: Rales, Rhonchi. absent: Chest Wall Tenderness - Cardiovascular Exam Cardiovascular Exam: Irregular Rhythm, JVD. absent: Gallop, Rubs - GI/Abdominal Exam GI & Abdominal Exam: Soft, Normal Bowel Sounds - Extremities Exam Extremities Exam: absent: Calf Tenderness - Back Exam Back Exam: absent: CVA tenderness (L), CVA tenderness (R) - Neurological Exam Neurological Exam: Altered - Psychiatric Exam Psychiatric exam: Flat Affect - Skin Skin Exam: absent: Cyanosis Assessment and Plan (1) Acute blood loss anemia Status: Acute (2) Altered mental status Status: Acute - Assessment and Plan (Free Text) Assessment: Oligoanuric Acute Kidney Injury (N17.9) likely due to ATN Diabetic chronic Kidney Disease (E11.22) Hypertensive Chronic Kidney Disease (I12.9) Chronic Kidney Disease (N18.3) Stage 3 with baseline cr 1.4-2.0 Anemia of acute blood loss, lactic acidosis sepsis with acute cholecystitis. hx of CAD s/p CABG, DM/HTN/COPD, sys CHF, A fib Leg edema with hydrocele Unresponsive Leukocytosis Abnormal liver function Plan Patient need dialysis as discussed with the family and Dr Onofre waiting for neurologist to assess the brain damage and and neurology condition Continue antibiotics as per renal dose Continue monitoring kidney function and electrolyte
--- NOTE | 2018-07-14 10:40 | CP.PCM.CON ---
History of Present Illness - History of Present Illness History of Present Illness: The patient continues to be unresponsive and ventilator dependent. He continues to be in atrial fibrillation and mostly in tachycardic rates in spite of intravenous beta-blockade. Has not spiked any fever during last 24 hours. His blood pressure is 146/74 mmHg and his pedal pulses were well felt. His blood gases show a normal pH and adequate oxygenation on 40% of FiO2. His urine output in last 24 hours was 275 mL. His hemoglobin and hematocrit remained stable with mild and stable thrombocytopenia. Azotemia keeps rising with BUN of 102 and creatinine of 6.6 mg percent. His sodium and potassium levels were normal. The patient has significant anoxic injury to multiple organs. I have spoken with the neurologist over the weekend. His clinical assessment and imaging hopefully should indicate if there is any potential for meaningful recovery. In that case hemodialysis will be initiated. Have spoken with the patient's family at length regarding this course of action. Past Patient History - Past Medical History & Family History Past Medical History?: Yes - Past Social History Smoking Status: Smoker Currrent Status Unknown Chewing Tobacco Use: No Cigar Use: No Alcohol: None Drugs: Denies Home Situation {Lives}: With Family - CARDIAC Hx Atrial Fibrillation: Yes Hx Cardia Arrhythmia: Yes (tachy/nasim) Hx Congestive Heart Failure: Yes Hx Heart Attack: Yes Hx Hypercholesterolemia: Yes Hx Hypertension: Yes Hx Pacemaker: Yes - PULMONARY Hx Bronchitis: Yes Hx Chronic Obstructive Pulmonary Disease (COPD): Yes Hx Pneumonia: Yes () - NEUROLOGICAL Hx Neurological Disorder: No Hx Transient Ischemic Attacks (TIA): No - HEENT Hx Glaucoma: Yes - RENAL Hx Chronic Kidney Disease: Yes - ENDOCRINE/METABOLIC Hx Diabetes Mellitus Type 2: Yes - HEMATOLOGICAL/ONCOLOGICAL Hx Anemia: No Hx Human Immunodeficiency Virus (HIV): No - INTEGUMENTARY Hx Dermatological Problems: No - MUSCULOSKELETAL/RHEUMATOLOGICAL Hx Arthritis: Yes Hx Fractures: No Hx Osteoporosis: Yes - GASTROINTESTINAL Hx Gastrointestinal Disorders: No - GENITOURINARY/GYNECOLOGICAL Hx Genitourinary Disorders: No - PSYCHIATRIC Hx Psychophysiologic Disorder: No Hx Substance Use: No - SURGICAL HISTORY Hx Cholecystectomy: Yes (current admission) Hx Coronary Artery Bypass Graft: Yes (1999) - ANESTHESIA Hx Anesthesia: Yes Hx Anesthesia Reactions: No Hx Malignant Hyperthermia: No Meds Allergies/Adverse Reactions: Allergies Allergy/AdvReac Type Severity Reaction Status Date / Time azithromycin Allergy ITCHING Verified 07/04/18 01:07 moxifloxacin [From Avelox] Allergy ITCHING Verified 07/04/18 01:07 - Medications Medications: Current Medications Acetaminophen (Tylenol 650mg/20.3ml Solution Ud) 650 mg PO Q6 PRN PRN Reason: fever Enoxaparin Sodium (Lovenox) 30 mg SC DAILY ANTONY; Protocol Last Admin: 07/08/18 09:10 Dose: 30 mg Piperacillin Sod/Tazobactam (Sod 2.25 gm/ Sodium Chloride) 100 mls @ 100 mls/hr IVPB Q12 ANTONY; Protocol Last Admin: 07/14/18 08:54 Dose: 100 mls/hr Meropenem 500 mg/ Sodium (Chloride) 100 mls @ 100 mls/hr IVPB Q12H ANTONY; Protocol Last Admin: 07/14/18 01:34 Dose: 100 mls/hr Insulin Human Lispro (Humalog) 0 units SC ACHS ANTONY; Protocol Last Admin: 07/14/18 07:16 Dose: Not Given Ipratropium [place] (Atrovent) 0.5 mg IH RQ6 [facility] Last Admin: 07/14/18 08:01 Dose: 0.5 mg Latanoprost (Xalatan Opht) 1 drop OD HS ANTONY Last Admin: 07/13/18 21:27 Dose: 1 drop Metoprolol Tartrate (Lopressor) 5 mg IVP Q6 ANTONY Last Admin: 07/14/18 03:47 Dose: 5 mg Ondansetron HCl (Zofran Inj) 4 mg IVP Q6 PRN PRN Reason: Nausea/Vomiting Pantoprazole Sodium (Protonix Inj) 40 mg IVP DAILY [facility] Last Admin: 07/14/18 08:53 Dose: 40 mg Results - Vital Signs Recent Vital Signs: Last Vital Signs Temp 98.8 F 07/14/18 08:00 Pulse 141 H 07/14/18 10:00 Resp 18 07/14/18 10:00 BP 158/85 H 07/14/18 10:00 Pulse Ox 100 07/14/18 10:00 - Labs Result Diagrams: 07/14/18 04:20 07/14/18 04:20 Labs: Laboratory Results - last 24 hr 07/13/18 07/13/18 07/13/18 11:29 16:24 20:47 WBC RBC Hgb Hct MCV MCH MCHC RDW Plt Count MPV Neut % (Auto) Lymph % (Auto) [place] % (Auto) Eos % (Auto) Baso % (Auto) Neut # (Auto) Lymph # (Auto) [place] # (Auto) Eos # (Auto) Baso # (Auto) pCO2 pO2 HCO3 ABG pH ABG Total CO2 ABG O2 Saturation ABG O2 Content ABG Base Excess ABG Hemoglobin ABG Carboxyhemoglobin POC ABG HHb (Measured) ABG Methemoglobin ABG O2 Capacity Van Test A-a O2 Difference Hgb O2 Saturation Vent Mode Mechanical Rate FiO2 Tidal Volume PEEP Sodium Potassium Chloride Carbon Dioxide Anion Gap BUN Creatinine Est GFR ( Amer) Est GFR (Non-Af Amer) POC Glucose (mg/dL) 136 H 140 H 149 H Random Glucose Calcium Total Bilirubin AST ALT Alkaline Phosphatase Total Protein Albumin Globulin Albumin/Globulin Ratio 07/14/18 07/14/18 07/14/18 04:20 04:20 05:08 WBC 21.8 H RBC 3.18 L Hgb 9.6 L Hct 28.7 L MCV 90.4 MCH 30.2 MCHC 33.4 RDW 17.2 H Plt Count 97 L D MPV 9.1 Neut % (Auto) 88.0 H Lymph % (Auto) 6.6 L [place] % (Auto) 4.7 Eos % (Auto) 0.5 Baso % (Auto) 0.2 Neut # (Auto) 19.2 H Lymph # (Auto) 1.4 [place] # (Auto) 1.0 H Eos # (Auto) 0.1 Baso # (Auto) 0.0 pCO2 21 L pO2 185 H HCO3 17.7 L ABG pH 7.42 ABG Total CO2 14.2 L ABG O2 Saturation 100.3 H ABG O2 Content 13.7 L ABG Base Excess -9.3 L ABG Hemoglobin 9.7 L ABG Carboxyhemoglobin 1.7 H POC ABG HHb (Measured) -0.3 L ABG Methemoglobin 1.2 ABG O2 Capacity 13.7 L Van Test Yes A-a O2 Difference 74.0 Hgb O2 Saturation 97.4 Vent Mode A/c Mechanical Rate 12 FiO2 40.0 Tidal Volume 450 PEEP 5 Sodium 144 Potassium 4.7 Chloride 111 H Carbon Dioxide 16 L Anion Gap 22 H BUN 102 H* D Creatinine 6.6 H Est GFR ( Amer) 10 Est GFR (Non-Af Amer) 8 POC Glucose (mg/dL) Random Glucose 145 H Calcium 7.3 L Total Bilirubin 2.1 H AST 160 H D ALT 242 H D Alkaline Phosphatase 99 Total Protein 6.4 Albumin 2.8 L Globulin 3.7 Albumin/Globulin Ratio 0.8 L 07/14/18 07:00 WBC RBC Hgb Hct MCV MCH MCHC RDW Plt Count MPV Neut % (Auto) Lymph % (Auto) [place] % (Auto) Eos % (Auto) Baso % (Auto) Neut # (Auto) Lymph # (Auto) [place] # (Auto) Eos # (Auto) Baso # (Auto) pCO2 pO2 HCO3 ABG pH ABG Total CO2 ABG O2 Saturation ABG O2 Content ABG Base Excess ABG Hemoglobin ABG Carboxyhemoglobin POC ABG HHb (Measured) ABG Methemoglobin ABG O2 Capacity Van Test A-a O2 Difference Hgb O2 Saturation Vent Mode Mechanical Rate FiO2 Tidal Volume PEEP Sodium Potassium Chloride Carbon Dioxide Anion Gap BUN Creatinine Est GFR ( Amer) Est GFR (Non-Af Amer) POC Glucose (mg/dL) 145 H Random Glucose Calcium Total Bilirubin AST ALT Alkaline Phosphatase Total Protein Albumin Globulin Albumin/Globulin Ratio
--- NOTE | 2018-07-14 12:02 | CP.PCM.PN ---
Subjective - Date & Time of Evaluation Date of Evaluation: 07/14/18 Time of Evaluation: 12:00 - Subjective Subjective: Neuro Follow Up Note: Mr. Jackson was evaluated this morning in the ICU. Family present at bedside. Pt remains intubated, on mech vent, off sedation. He does not follow commands. Per family he opens his right eye on/off and they noticed his right hand moving on/off today. Family has many questions regarding his prognosis and they voice concerns and uncertainty about whether to start HD or not. Family spoke with Dr. Morgan over the weekend, who recommended a Brain MRI to further evaluate brain injury or ischemia. The MRI was cancelled in [facility]. A Brain Flow Study has been ordered by the ICU team. I spoke with Dr. Onofre at length regarding the pt this morning, who is recommending that neuro help the pt decide soon on the goals of care for the pt. ROS is unobtainable from the pt 2/2 his current condition. Objective - Vital Signs/Intake and Output Vital Signs (last 24 hours): Temp Pulse Resp BP Pulse Ox 98.8 F 141 H 18 158/85 H 100 07/14/18 08:00 07/14/18 10:00 07/14/18 10:00 07/14/18 10:00 07/14/18 10:00 Intake and Output: 07/14/18 07/14/18 06:59 18:59 Intake Total 700 100 Output Total 175 Balance 525 100 - Medications Medications: Current Medications Acetaminophen (Tylenol 650mg/20.3ml Solution Ud) 650 mg PO Q6 PRN PRN Reason: fever Enoxaparin Sodium (Lovenox) 30 mg SC DAILY ANTONY; Protocol Last Admin: 07/08/18 09:10 Dose: 30 mg Piperacillin Sod/Tazobactam (Sod 2.25 gm/ Sodium Chloride) 100 mls @ 100 mls/hr IVPB Q12 ANTONY; Protocol Last Admin: 07/14/18 08:54 Dose: 100 mls/hr Meropenem 500 mg/ Sodium (Chloride) 100 mls @ 100 mls/hr IVPB Q12H ANTONY; Protocol Last Admin: 07/14/18 01:34 Dose: 100 mls/hr Diltiazem HCl 125 mg/ Sodium (Chloride) 125 mls @ 5 mls/hr IV .Q24H ONE; Protocol Stop: 07/15/18 10:45 Insulin Human Lispro (Humalog) 0 units SC ACHS ANTONY; Protocol Last Admin: 07/14/18 07:16 Dose: Not Given Ipratropium [place] (Atrovent) 0.5 mg IH RQ6 [facility] Last Admin: 07/14/18 08:01 Dose: 0.5 mg Latanoprost (Xalatan Opht) 1 drop OD HS ANTONY Last Admin: 07/13/18 21:27 Dose: 1 drop Metoprolol Tartrate (Lopressor) 5 mg IVP Q6 [facility] Last Admin: 07/14/18 03:47 Dose: 5 mg Ondansetron HCl (Zofran Inj) 4 mg IVP Q6 PRN PRN Reason: Nausea/Vomiting Pantoprazole Sodium (Protonix Inj) 40 mg IVP DAILY [facility] Last Admin: 07/14/18 08:53 Dose: 40 mg - Labs Labs: 07/14/18 04:20 07/14/18 04:20 PT 16.1 Seconds (9.8-13.1) H 07/12/18 04:27 INR 1.4 07/12/18 04:27 APTT 35.2 Seconds (25.6-37.1) 07/12/18 04:27 - Constitutional Appears: Other (intubated, on mech vent, off sedation, does not follow commands) - Head Exam Head Exam: ATRAUMATIC, NORMAL INSPECTION, NORMOCEPHALIC - Eye Exam Additional comments: Sluggish but reactive pupil response b/l Sluggish dolls eyes + corneal reflex - ENT Exam ENT Exam: Mucous Membranes Moist Additional comments: intubated - Neck Exam Neck Exam: Normal Inspection - Respiratory Exam Additional comments: intubated on mech vent - Cardiovascular Exam Cardiovascular Exam: Tachycardia, Irregular Rhythm - GI/Abdominal Exam GI & Abdominal Exam: Soft. absent: Distended - Exam Additional comments: higgins - Extremities Exam Extremities Exam: Pedal Edema. absent: Normal Inspection (edematous) - Neurological Exam Neurological Exam: Altered Additional comments: Pt remains intubated, on mech vent, no breathing over the vent. No sedation. Today pt moved left hand and fingers when sternal rub done; ? non-purposeful movement He does not follow commands. Sluggish but reactive pupil response b/l Sluggish dolls eyes + corneal reflex + Gag reflex; coughs during exam Extremities flaccid + babinski b/l - Psychiatric Exam Additional comments: intubated, does not follow commands - Skin Skin Exam: Normal Color Assessment and Plan (1) Anoxic brain injury Assessment & Plan: Imaging reviewed: -EEG (07/10/18): Impression: This is an abnormal video-EEG monitoring study due to the presence of 1-Burst suppression/attenuation pattern, marked diffuse attenuated slowing; No seizures, not in status epilepticus. 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 -CT Head (07/11/18): -All family questions and concerns discussed with Dr. Morgan and the family (pt's on and daughter, Javier) over the weekend and again with me today. Dr. Daley also spoke with physical therapist aide regarding the brain flow study. I spoke with the family regarding the need for a Brain MRI as well as a repeat 24 hour EEG at this time to re-evaluate the pt's brain function, given that there was a Burst suppression/attenuation pattern seen on the initial EEG. The daughter, Nanette, would like the MRI and Brain Flow Study done today before the EEG, as these were tests pending from the weekend. Family to decide on HD after these tests are done and discussed with the medical team. She verbalized the me agreement with the above noted plan and the neurological recommendations that we have made. I called Dr. Onofre's office to update him about the above mentioned and left a message with the contact officer regarding a need to discuss this update with him. -Continue management of other ongoing medical issues. -Continue recs from other consultants. -Notify neuro team of any acute changes in pt's condition. Please do not hesitate to contact Dr. Daley for any questions regarding this pt or if the family has any questions or concerns that they would like to discuss. Keturah Nguyen, GABRIELA, SENIOR ENERGY ANALYST d/w Dr. Daley Status: Acute
[2018-07-14] MEDS ORDERED: Midazolam 2 MG/2 ML VIAL IV ONE (13:59)
--- NOTE | 2018-07-14 14:54 | NM ---
Date of service: 07/14/2018 PROCEDURE: Radionuclide brain perfusion assay HISTORY: assess brain flow, s/p cardiac arrest COMPARISON: Not available TECHNIQUE: Following the intravenous administration of 21.5 mCi of technetium 99 M DTPA, sequential images of the head were acquired at 2 sec intervals in the AP projection. Delayed images were acquired in multiple projections. FINDINGS: There is absent flow in the region of the internal carotid artery supply. Flow is demonstrated in the common and external carotid arteries and about the face and neck. There is little or no flow demonstrated in the dural venous sinuses. There is a "hot nose "sign seen on late and delayed images. The findings are consistent with brain . There is no additional abnormality. IMPRESSION: Findings consistent with absent perfusion of the brain. Consistent with brain . Findings discussed by telephone with nurse Guerra at 2:48 p.m. on 07/14/2018.
--- NOTE | 2018-07-14 15:34 | CP.CCUPN ---
CCU Objective - Vital Signs / Intake & Output Vital Signs (Last 4 hours): Vital Signs Temp Pulse Resp BP Pulse Ox 07/14/18 12:00 98.8 F 80 22 134/83 100 Intake and Output (Last 8hrs): Intake & Output 07/14/18 07/14/18 07/14/18 06:59 14:59 22:59 Intake Total 450 100 Output Total 175 Balance 275 100 Weight 163 lb Intake: IV 350 100 Intake, Piggyback 100 Output: Urine 175 Urethral ([place]) 175 Other: # Bowel Movements 1 - Physical Exam Head: Positive for: Atraumatic Pupils: Positive for: Non-Reactive Extroacular Muscles: Negative for: EOMI, Gaze Palsy Mouth: Positive for: Moist Mucous Membranes Nose (External): Positive for: Atraumatic Respiratory/Chest: Positive for: Rhonchi Abdomen: Positive for: Distention, Normal Bowel Sounds, Other (Right sided ecchymosis extending to both upper and lower quadrants. Unable to assess pain. ) Genitourinary Male: Positive for: Testicle Swelling (significant scrotal edema) Upper Extremity: Positive for: Capillary Refill < 2s. Negative for: Edema Lower Extremity: Negative for: Edema Neurological: Positive for: Other (on ventilator, no response to any stimuli) Skin: Positive for: Normal Color Psychiatric: Negative for: Alert (GCS3), Oriented x 3 - Medications Active Medications: Active Medications Generic Name Dose Route Start Last Admin Trade Name Freq PRN Reason Stop Dose Admin Acetaminophen 650 mg 07/12/18 05:22 Tylenol 650mg/20.3ml Solution Ud PO Q6 PRN fever Enoxaparin Sodium 30 mg 07/05/18 09:00 07/08/18 09:10 Lovenox SC 30 mg DAILY ANTONY Administration Protocol Piperacillin Sod/Tazobactam 100 mls @ 100 mls/hr 07/10/18 21:00 07/14/18 08:54 Sod 2.25 gm/ Sodium Chloride IVPB 100 mls/hr Q12 ANTONY Administration Protocol Meropenem 500 mg/ Sodium 100 mls @ 100 mls/hr 07/10/18 13:15 07/14/18 01:34 Chloride IVPB 100 mls/hr Q12H ANTONY Administration Protocol Diltiazem HCl 125 mg/ Sodium 125 mls @ 5 mls/hr 07/14/18 10:46 Chloride IV 07/15/18 10:45 .Q24H ONE Protocol 5 MG/HR Insulin Human Lispro 0 units 07/09/18 07:30 07/14/18 07:16 Humalog SC Not Given ACHS [facility] Protocol Ipratropium [place] 0.5 mg 07/10/18 14:00 07/14/18 08:01 Atrovent IH 0.5 mg RQ6 ANTONY Administration Latanoprost 1 drop 07/04/18 22:00 07/13/18 21:27 Xalatan Opht OD 1 drop HS ANTONY Administration Ondansetron HCl 4 mg 07/04/18 08:08 Zofran Inj IVP Q6 PRN Nausea/Vomiting Pantoprazole Sodium 40 mg 07/12/18 09:00 07/14/18 08:53 Protonix Inj IVP 40 mg DAILY ANTONY Administration - Patient Studies Lab Studies: Microbiology Studies 07/10/18 13:10 Blood Culture - Preliminary Blood-Venous NO GROWTH AFTER 4 DAYS 07/10/18 13:00 Blood Culture - Preliminary Blood-Venous NO GROWTH AFTER 4 DAYS Lab Studies 07/14/18 07/14/18 07/14/18 Range/Units 07:00 05:08 04:20 WBC (4.8-10.8) K/uL RBC (4.40-5.90) Mil/uL Hgb (12.0-18.0) g/dL Hct (35.0-51.0) % MCV (80.0-94.0) fl MCH (27.0-31.0) pg MCHC (33.0-37.0) g/dL RDW (11.5-14.5) % Plt Count (130-400) K/uL MPV (7.2-11.7) fl Neut % (Auto) (50.0-75.0) % Lymph % (Auto) (20.0-40.0) % [place] % (Auto) (0.0-10.0) % Eos % (Auto) (0.0-4.0) % Baso % (Auto) (0.0-2.0) % Neut # (Auto) (1.8-7.0) K/uL Lymph # (Auto) (1.0-4.3) K/uL [place] # (Auto) (0.0-0.8) K/uL Eos # (Auto) (0.0-0.7) K/uL Baso # (Auto) (0.0-0.2) K/uL pCO2 21 L (35-45) mm/Hg pO2 185 H (80-100) mm/Hg HCO3 17.7 L (21-28) mmol/L ABG pH 7.42 (7.35-7.45) ABG Total CO2 14.2 L (22-28) mmol/L ABG O2 Saturation 100.3 H (95-98) % ABG O2 Content 13.7 L (15-23) ML/dL ABG Base Excess -9.3 L (-2.0-3.0) mmol/L ABG Hemoglobin 9.7 L (11.7-17.4) g/dL ABG Carboxyhemoglobin 1.7 H (0.5-1.5) % POC ABG HHb (Measured) -0.3 L (0.0-5.0) % ABG Methemoglobin 1.2 (0.0-3.0) % ABG O2 Capacity 13.7 L (16-24) mL/dL Van Test Yes A-a O2 Difference 74.0 mm/Hg Hgb O2 Saturation 97.4 (95.0-98.0) % Vent Mode A/c Mechanical Rate 12 FiO2 40.0 % Tidal Volume 450 PEEP 5 Sodium 144 (132-148) mmol/l Potassium 4.7 (3.6-5.0) MMOL/L Chloride 111 H (98-107) mmol/L Carbon Dioxide 16 L (22-30) mmol/L Anion Gap 22 H (10-20) BUN 102 H* D (9-20) mg/dl Creatinine 6.6 H (0.8-1.5) mg/dl Est GFR ( Amer) 10 Est GFR (Non-Af Amer) 8 POC Glucose (mg/dL) 145 H (65-110) mg/dL Random Glucose 145 H (75-110) mg/dL Calcium 7.3 L (8.4-10.2) mg/dL Total Bilirubin 2.1 H (0.2-1.3) mg/dl AST 160 H D (17-59) U/L ALT 242 H D (21-72) U/L Alkaline Phosphatase 99 (38-126) U/L Total Protein 6.4 (6.3-8.2) G/DL Albumin 2.8 L (3.5-5.0) g/dL Globulin 3.7 (2.2-3.9) gm/dL Albumin/Globulin Ratio 0.8 L (1.0-2.1) 07/14/18 07/13/18 07/13/18 Range/Units 04:20 20:47 16:24 WBC 21.8 H (4.8-10.8) K/uL RBC 3.18 L (4.40-5.90) Mil/uL Hgb 9.6 L (12.0-18.0) g/dL Hct 28.7 L (35.0-51.0) % MCV 90.4 (80.0-94.0) fl MCH 30.2 (27.0-31.0) pg MCHC 33.4 (33.0-37.0) g/dL RDW 17.2 H (11.5-14.5) % Plt Count 97 L D (130-400) K/uL MPV 9.1 (7.2-11.7) fl Neut % (Auto) 88.0 H (50.0-75.0) % Lymph % (Auto) 6.6 L (20.0-40.0) % [place] % (Auto) 4.7 (0.0-10.0) % Eos % (Auto) 0.5 (0.0-4.0) % Baso % (Auto) 0.2 (0.0-2.0) % Neut # (Auto) 19.2 H (1.8-7.0) K/uL Lymph # (Auto) 1.4 (1.0-4.3) K/uL [place] # (Auto) 1.0 H (0.0-0.8) K/uL Eos # (Auto) 0.1 (0.0-0.7) K/uL Baso # (Auto) 0.0 (0.0-0.2) K/uL pCO2 (35-45) mm/Hg pO2 (80-100) mm/Hg HCO3 (21-28) mmol/L ABG pH (7.35-7.45) ABG Total CO2 (22-28) mmol/L ABG O2 Saturation (95-98) % ABG O2 Content (15-23) ML/dL ABG Base Excess (-2.0-3.0) mmol/L ABG Hemoglobin (11.7-17.4) g/dL ABG Carboxyhemoglobin (0.5-1.5) % POC ABG HHb (Measured) (0.0-5.0) % ABG Methemoglobin (0.0-3.0) % ABG O2 Capacity (16-24) mL/dL Van Test A-a O2 Difference mm/Hg Hgb O2 Saturation (95.0-98.0) % Vent Mode Mechanical Rate FiO2 % Tidal Volume PEEP Sodium (132-148) mmol/l Potassium (3.6-5.0) MMOL/L Chloride (98-107) mmol/L Carbon Dioxide (22-30) mmol/L Anion Gap (10-20) BUN (9-20) mg/dl Creatinine (0.8-1.5) mg/dl Est GFR ( Amer) Est GFR (Non-Af Amer) POC Glucose (mg/dL) 149 H 140 H (65-110) mg/dL Random Glucose (75-110) mg/dL Calcium (8.4-10.2) mg/dL Total Bilirubin (0.2-1.3) mg/dl AST (17-59) U/L ALT (21-72) U/L Alkaline Phosphatase (38-126) U/L Total Protein (6.3-8.2) G/DL Albumin (3.5-5.0) g/dL Globulin (2.2-3.9) gm/dL Albumin/Globulin Ratio (1.0-2.1) 07/13/18 Range/Units 11:29 WBC (4.8-10.8) K/uL RBC (4.40-5.90) Mil/uL Hgb (12.0-18.0) g/dL Hct (35.0-51.0) % MCV (80.0-94.0) fl MCH (27.0-31.0) pg MCHC (33.0-37.0) g/dL RDW (11.5-14.5) % Plt Count (130-400) K/uL MPV (7.2-11.7) fl Neut % (Auto) (50.0-75.0) % Lymph % (Auto) (20.0-40.0) % [place] % (Auto) (0.0-10.0) % Eos % (Auto) (0.0-4.0) % Baso % (Auto) (0.0-2.0) % Neut # (Auto) (1.8-7.0) K/uL Lymph # (Auto) (1.0-4.3) K/uL [place] # (Auto) (0.0-0.8) K/uL Eos # (Auto) (0.0-0.7) K/uL Baso # (Auto) (0.0-0.2) K/uL pCO2 (35-45) mm/Hg pO2 (80-100) mm/Hg HCO3 (21-28) mmol/L ABG pH (7.35-7.45) ABG Total CO2 (22-28) mmol/L ABG O2 Saturation (95-98) % ABG O2 Content (15-23) ML/dL ABG Base Excess (-2.0-3.0) mmol/L ABG Hemoglobin (11.7-17.4) g/dL ABG Carboxyhemoglobin (0.5-1.5) % POC ABG HHb (Measured) (0.0-5.0) % ABG Methemoglobin (0.0-3.0) % ABG O2 Capacity (16-24) mL/dL Van Test A-a O2 Difference mm/Hg Hgb O2 Saturation (95.0-98.0) % Vent Mode Mechanical Rate FiO2 % Tidal Volume PEEP Sodium (132-148) mmol/l Potassium (3.6-5.0) MMOL/L Chloride (98-107) mmol/L Carbon Dioxide (22-30) mmol/L Anion Gap (10-20) BUN (9-20) mg/dl Creatinine (0.8-1.5) mg/dl Est GFR ( Amer) Est GFR (Non-Af Amer) POC Glucose (mg/dL) 136 H (65-110) mg/dL Random Glucose (75-110) mg/dL Calcium (8.4-10.2) mg/dL Total Bilirubin (0.2-1.3) mg/dl AST (17-59) U/L ALT (21-72) U/L Alkaline Phosphatase (38-126) U/L Total Protein (6.3-8.2) G/DL Albumin (3.5-5.0) g/dL Globulin (2.2-3.9) gm/dL Albumin/Globulin Ratio (1.0-2.1) Laboratory Results - last 24 hr 07/13/18 07/13/18 07/13/18 11:29 16:24 20:47 WBC RBC Hgb Hct MCV MCH MCHC RDW Plt Count MPV Neut % (Auto) Lymph % (Auto) [place] % (Auto) Eos % (Auto) Baso % (Auto) Neut # (Auto) Lymph # (Auto) [place] # (Auto) Eos # (Auto) Baso # (Auto) pCO2 pO2 HCO3 ABG pH ABG Total CO2 ABG O2 Saturation ABG O2 Content ABG Base Excess ABG Hemoglobin ABG Carboxyhemoglobin POC ABG HHb (Measured) ABG Methemoglobin ABG O2 Capacity Van Test A-a O2 Difference Hgb O2 Saturation Vent Mode Mechanical Rate FiO2 Tidal Volume PEEP Sodium Potassium Chloride Carbon Dioxide Anion Gap BUN Creatinine Est GFR ( Amer) Est GFR (Non-Af Amer) POC Glucose (mg/dL) 136 H 140 H 149 H Random Glucose Calcium Total Bilirubin AST ALT Alkaline Phosphatase Total Protein Albumin Globulin Albumin/Globulin Ratio 07/14/18 07/14/18 07/14/18 04:20 04:20 05:08 WBC 21.8 H RBC 3.18 L Hgb 9.6 L Hct 28.7 L MCV 90.4 MCH 30.2 MCHC 33.4 RDW 17.2 H Plt Count 97 L D MPV 9.1 Neut % (Auto) 88.0 H Lymph % (Auto) 6.6 L [place] % (Auto) 4.7 Eos % (Auto) 0.5 Baso % (Auto) 0.2 Neut # (Auto) 19.2 H Lymph # (Auto) 1.4 [place] # (Auto) 1.0 H Eos # (Auto) 0.1 Baso # (Auto) 0.0 pCO2 21 L pO2 185 H HCO3 17.7 L ABG pH 7.42 ABG Total CO2 14.2 L ABG O2 Saturation 100.3 H ABG O2 Content 13.7 L ABG Base Excess -9.3 L ABG Hemoglobin 9.7 L ABG Carboxyhemoglobin 1.7 H POC ABG HHb (Measured) -0.3 L ABG Methemoglobin 1.2 ABG O2 Capacity 13.7 L Van Test Yes A-a O2 Difference 74.0 Hgb O2 Saturation 97.4 Vent Mode A/c Mechanical Rate 12 FiO2 40.0 Tidal Volume 450 PEEP 5 Sodium 144 Potassium 4.7 Chloride 111 H Carbon Dioxide 16 L Anion Gap 22 H BUN 102 H* D Creatinine 6.6 H Est GFR ( Amer) 10 Est GFR (Non-Af Amer) 8 POC Glucose (mg/dL) Random Glucose 145 H Calcium 7.3 L Total Bilirubin 2.1 H AST 160 H D ALT 242 H D Alkaline Phosphatase 99 Total Protein 6.4 Albumin 2.8 L Globulin 3.7 Albumin/Globulin Ratio 0.8 L 07/14/18 07:00 WBC RBC Hgb Hct MCV MCH MCHC RDW Plt Count MPV Neut % (Auto) Lymph % (Auto) [place] % (Auto) Eos % (Auto) Baso % (Auto) Neut # (Auto) Lymph # (Auto) [place] # (Auto) Eos # (Auto) Baso # (Auto) pCO2 pO2 HCO3 ABG pH ABG Total CO2 ABG O2 Saturation ABG O2 Content ABG Base Excess ABG Hemoglobin ABG Carboxyhemoglobin POC ABG HHb (Measured) ABG Methemoglobin ABG O2 Capacity Van Test A-a O2 Difference Hgb O2 Saturation Vent Mode Mechanical Rate FiO2 Tidal Volume PEEP Sodium Potassium Chloride Carbon Dioxide Anion Gap BUN Creatinine Est GFR ( Amer) Est GFR (Non-Af Amer) POC Glucose (mg/dL) 145 H Random Glucose Calcium Total Bilirubin AST ALT Alkaline Phosphatase Total Protein Albumin Globulin Albumin/Globulin Ratio Radiology Impressions: Radiology Impressions Chest X-Ray 07/14/18 05:00 IMPRESSION: Small left pleural effusion. No infiltrate. Questionable mild congestive change. Brain Flow Nuclear Medicine 07/14/18 08:00 IMPRESSION: Findings consistent with absent perfusion of the brain. Consistent with brain . Findings discussed by telephone with nurse Guerra at 2:48 p.m. on 07/14/2018. Fingerstick Blood Sugar Results: 145 Assessment/Plan (1) Anoxic brain injury Assessment and plan: Nuclear brain flow scan showed no blood flow to the entire brain. His brain stem is still functional. The family has been informed and will withdraw care within the next [address] Onofre informed. Neuro - Dr. Daley informed. Critical Care time spent 35 minutes Multi-disciplinary rounds were performed with house staff, nursing, speech therapy, respiratory therapy, pharmacy and nutrition with integrated input from the primary team/attending and other consulting services. The documented time is cumulative and includes review of patient data/exams/labs/chart review and examination of the patient on rounds and throughout the day; time is exclusive of any procedures or teaching time. Current Visit: Yes Status: Acute
[2018-07-14] MEDS ORDERED: Midazolam 50 mg/10 ml 50 MG in Dextrose 5% In Water 90 ML IV ONE (18:13)
[2018-07-15] MEDS: Insulin Lispro (humaLOG) 100 Units/ml Inj SC SCH ×2 (01:09→08:31)
[2018-07-15] MEDS: Latanoprost 0.005% Opht SOUTION OD SCH (01:10)
[2018-07-15] MEDS: Meropenem 500 MG in Sodium Chloride 0.9% 100 ML IVPB SCH (02:41)
[2018-07-15] MEDS: Ipratropium 0.02% Inhal Soln (0.5 mg/2.5 ml) UD IH SCH ×2 (02:49→07:38)
[2018-07-15] MEDS ORDERED: Morphine 100 MG in Sodium Chloride 0.9% 96 ML IV SCH (04:45)
[2018-07-15] MEDS ORDERED: Morphine 100 MG in Sodium Chloride 0.9% 90 ML IV SCH ×3 (05:00→21:45)
[2018-07-15 05:44] LABS: BASO % 0.2 % (0.0-2.0); EOS # 0.3 K/uL (0.0-0.7); EOS % 1.5 % (0.0-4.0); HEMOGLOBIN 9.3 g/dL (12.0-18.0); LYMPH # 0.9 K/uL (1.0-4.3); LYMPH % 4.4 % (20.0-40.0); MEAN CELL VOLUME 90.8 fl (80.0-94.0); MEAN CORPUSCULAR HEMOGLOBIN 30.5 pg (27.0-31.0); MEAN CORPUSCULAR HGB CONC 33.6 g/dL (33.0-37.0); MEAN PLATELET VOLUME 8.5 fl (7.2-11.7); MONO # 0.9 K/uL (0.0-0.8); MONO % 4.4 % (0.0-10.0); NEUT # 17.8 K/uL (1.8-7.0); NEUT % 89.5 % (50.0-75.0); NRBC % 1.9 % (0.0-0.0); PLATELET COUNT 101 K/uL (130-400); RBC 3.04 Mil/uL (4.40-5.90); RED CELL DISTRIBUTION WIDTH 17.4 % (11.5-14.5); WHITE BLOOD COUNT 19.9 K/uL (4.8-10.8)
[2018-07-15 06:05] LABS: ALB/GLOB RATIO 0.8 (1.0-2.1); ALBUMIN 2.7 g/dL (3.5-5.0); CALCIUM 7.8 mg/dL (8.4-10.2)
--- NOTE | 2018-07-15 07:35 | CP.CCUPN ---
CCU Subjective - Physician Review Subjective (Free Text): 07/15/18 08:22 The patient was Seen/interviewed and examined by me at the bedside during ICU round, Medical records reviewed and Management issues were discussed and formulated with the house staff. Events reviewed Mr Jackson is a 78 years old male with past medical history of congestive heart failure with reduced reduced ejection fraction of 30-35%, chronic kidney disease, coronary artery disease a status post CABG, chronic obstructive pulmonary disease, chronic atrial fibrillation and status post pacemaker Who initially presented to the emergency room with complaint of diffuse abdominal pain, with diagnosed with gallstone pancreatitis 07/07, Underwent laparoscopic cholecystectomy with Intra-Op operative cholangiogram Post operative he was in atrial fibrillation with RVR receive IV digoxin x2 and was started on Cardizem drip 07/08, he is hypotensive and tachycardic, labs significant for hemoglobin drop and he was transferred to the intensive care unit for further management and hemodynamic monitoring Patient alert awake and oriented, is comfortable and in no apparent distress Abdominal pain is well controlled, denies fever/chills, chest pain, shortness of breath, nausea and vomiting 2 units of blood transfusion stat was transfused ICU course noted for cardiac arrest on Post Op Day #3, He was noted to be in acute distress, complaining of abdominal pain then shortly after, pt was noted to be unresponsive and pulseless, ACLS protocol was initiated, pt received multiple rounds of Epi and ROSC was achieved. Post cardiac arrest patient was noted with low hemoglobin and he received 2 more units of packed red blood cells and fresh frozen plasma was appropriate response Patient remains unresponsive, comatose with [place]ana Coma Scale of 3 Yesterday he had brain flow scan that was negative consistent with brain After discussions with family regarding goals of care, he was placed DNR/DNI and terminally extubated Patient is afebrile on empiric broad-spectrum antibiotic coverage Blood pressure is in the good range but remains tachycardic on Cardizem drip. Another family discussion held today with multiple family members, and at this time will discontinue any active treatment Patient remains DNR/DNI Comfort care CCU Objective - Vital Signs / Intake & Output Vital Signs (Last 4 hours): Vital Signs Temp Pulse Resp BP Pulse Ox 07/15/18 06:00 98.2 F 170 H 25 H 118/68 100 07/15/18 04:00 99.3 F 156 H 25 H 138/83 99 Intake and Output (Last 8hrs): Intake & Output 07/14/18 07/15/18 07/15/18 22:59 06:59 14:59 Intake Total 40 144 Balance 40 144 Weight 163 lb Intake: IV 40 144 - Physical Exam Head: Positive for: Atraumatic Pupils: Positive for: Non-Reactive Extroacular Muscles: Negative for: EOMI, Gaze Palsy Mouth: Positive for: Moist Mucous Membranes Nose (External): Positive for: Atraumatic Respiratory/Chest: Positive for: Rhonchi Abdomen: Positive for: Distention, Normal Bowel Sounds, Other (Right sided ecchymosis extending to both upper and lower quadrants. Unable to assess pain. ) Genitourinary Male: Positive for: Testicle Swelling (significant scrotal edema) Upper Extremity: Positive for: Capillary Refill < 2s. Negative for: Edema Lower Extremity: Negative for: Edema Neurological: Positive for: Other (Comatozed, no response to any stimuli) Skin: Positive for: Normal Color Psychiatric: Negative for: Alert (GCS3), Oriented x 3 - Medications Active Medications: Active Medications Generic Name Dose Route Start Last Admin Trade Name Freq PRN Reason Stop Dose Admin Acetaminophen 650 mg 07/12/18 05:22 Tylenol 650mg/20.3ml Solution Ud PO Q6 PRN fever Enoxaparin Sodium 30 mg 07/05/18 09:00 07/08/18 09:10 Lovenox SC 30 mg DAILY ANTONY Administration Protocol Piperacillin Sod/Tazobactam 100 mls @ 100 mls/hr 07/10/18 21:00 07/15/18 01:10 Sod 2.25 gm/ Sodium Chloride IVPB Not Given Q12 ANTONY Protocol Meropenem 500 mg/ Sodium 100 mls @ 100 mls/hr 07/10/18 13:15 07/15/18 02:41 Chloride IVPB Not Given Q12H ANTONY Protocol Diltiazem HCl 125 mg/ Sodium 125 mls @ 5 mls/hr 07/14/18 10:46 07/14/18 18:38 Chloride IV 07/15/18 10:45 Not Given .Q24H ONE Protocol 5 MG/HR Morphine Sulfate 100 mg/ 100 mls @ 2 mls/hr 07/15/18 05:00 07/15/18 05:18 Sodium Chloride IV 2 mls/hr .Q24H ANTONY Administration Protocol 2 MG/HR Insulin Human Lispro 0 units 07/09/18 07:30 07/15/18 01:09 Humalog SC Not Given ACHS [facility] Protocol Ipratropium [place] 0.5 mg 07/10/18 14:00 07/15/18 02:49 Atrovent IH Not Given RQ6 ANTONY Latanoprost 1 drop 07/04/18 22:00 07/15/18 01:10 Xalatan Opht OD Not Given HS [facility] Ondansetron HCl 4 mg 07/04/18 08:08 Zofran Inj IVP Q6 PRN Nausea/Vomiting Pantoprazole Sodium 40 mg 07/12/18 09:00 07/14/18 08:53 Protonix Inj IVP 40 mg DAILY [facility] Administration - Patient Studies Lab Studies: Microbiology Studies 07/14/18 10:02 Gram Stain - Final Trachasp 07/10/18 13:10 Blood Culture - Preliminary Blood-Venous NO GROWTH AFTER 4 DAYS 07/10/18 13:00 Blood Culture - Preliminary Blood-Venous NO GROWTH AFTER 4 DAYS Lab Studies 07/15/18 07/15/18 Range/Units 04:40 04:40 WBC 19.9 H (4.8-10.8) K/uL RBC 3.04 L (4.40-5.90) Mil/uL Hgb 9.3 L (12.0-18.0) g/dL Hct 27.6 L (35.0-51.0) % MCV 90.8 (80.0-94.0) fl MCH 30.5 (27.0-31.0) pg MCHC 33.6 (33.0-37.0) g/dL RDW 17.4 H (11.5-14.5) % Plt Count 101 L (130-400) K/uL MPV 8.5 (7.2-11.7) fl Neut % (Auto) 89.5 H (50.0-75.0) % Lymph % (Auto) 4.4 L (20.0-40.0) % [place] % (Auto) 4.4 (0.0-10.0) % Eos % (Auto) 1.5 (0.0-4.0) % Baso % (Auto) 0.2 (0.0-2.0) % Neut # (Auto) 17.8 H (1.8-7.0) K/uL Lymph # (Auto) 0.9 L (1.0-4.3) K/uL [place] # (Auto) 0.9 H (0.0-0.8) K/uL Eos # (Auto) 0.3 (0.0-0.7) K/uL Baso # (Auto) 0.0 (0.0-0.2) K/uL Sodium 146 (132-148) mmol/l Potassium 4.7 (3.6-5.0) MMOL/L Chloride 113 H (98-107) mmol/L Carbon Dioxide 15 L (22-30) mmol/L Anion Gap 23 H (10-20) BUN 123 H* D (9-20) mg/dl Creatinine 7.4 H* (0.8-1.5) mg/dl Est GFR ( Amer) 9 Est GFR (Non-Af Amer) 7 Random Glucose 134 H (75-110) mg/dL Calcium 7.8 L (8.4-10.2) mg/dL Total Bilirubin 2.1 H (0.2-1.3) mg/dl AST 100 H D (17-59) U/L ALT 134 H D (21-72) U/L Alkaline Phosphatase 90 (38-126) U/L Total Protein 6.3 (6.3-8.2) G/DL Albumin 2.7 L (3.5-5.0) g/dL Globulin 3.6 (2.2-3.9) gm/dL Albumin/Globulin Ratio 0.8 L (1.0-2.1) Laboratory Results - last 24 hr 07/15/18 07/15/18 04:40 04:40 WBC 19.9 H RBC 3.04 L Hgb 9.3 L Hct 27.6 L MCV 90.8 MCH 30.5 MCHC 33.6 RDW 17.4 H Plt Count 101 L MPV 8.5 Neut % (Auto) 89.5 H Lymph % (Auto) 4.4 L [place] % (Auto) 4.4 Eos % (Auto) 1.5 Baso % (Auto) 0.2 Neut # (Auto) 17.8 H Lymph # (Auto) 0.9 L [place] # (Auto) 0.9 H Eos # (Auto) 0.3 Baso # (Auto) 0.0 Sodium 146 Potassium 4.7 Chloride 113 H Carbon Dioxide 15 L Anion Gap 23 H BUN 123 H* D Creatinine 7.4 H* Est GFR ( Amer) 9 Est GFR (Non-Af Amer) 7 Random Glucose 134 H Calcium 7.8 L Total Bilirubin 2.1 H AST 100 H D ALT 134 H D Alkaline Phosphatase 90 Total Protein 6.3 Albumin 2.7 L Globulin 3.6 Albumin/Globulin Ratio 0.8 L Radiology Impressions: Radiology Impressions Chest X-Ray 07/14/18 05:00 IMPRESSION: Small left pleural effusion. No infiltrate. Questionable mild congestive change. Brain Flow Nuclear Medicine 07/14/18 08:00 IMPRESSION: Findings consistent with absent perfusion of the brain. Consistent with brain . Findings discussed by telephone with nurse Charlie at 2:48 p.m. on 07/14/2018. Fingerstick Blood Sugar Results: 145 Assessment/Plan (1) Cardiopulmonary arrest Current Visit: Yes Status: Acute Priority: High Comment: Patient remains unresponsive to painful stimuli DNR/DNI Status post terminal extubation Continue morphine drip Discontinue all other measures (2) Gallstone pancreatitis Current Visit: Yes Status: Acute Comment: S/P laparoscopic cholecystectomy with intraoperative cholangiogram Emperic Antibiotics Pain control Monitor urine output [place] to be removed tomorrow (3) Atrial fibrillation with rapid ventricular response Current Visit: Yes Status: Acute Comment: Cardiology consult appreciated (4) Acute blood loss anemia Current Visit: Yes Status: Acute Priority: High Comment: Transfused FFP and packed red blood cell (5) COPD (chronic obstructive pulmonary disease) Current Visit: No Status: Chronic Priority: High Comment: Bronchodilator nebulizer as needed (6) Chronic kidney disease, stage III (moderate) Current Visit: No Status: Chronic Priority: High - Assessment and Plan (Free Text) Assessment: Discussed with the family at the bedside diagnosis, grave prognosis, treatment plans and alternative The old verbalized understanding and agreement with the current plan Total critical care time 32 minutes
[2018-07-15 07:38] VITALS: BP 128/79
--- NOTE | 2018-07-15 08:02 | CP.PCM.PN ---
<VinnieDelonte - Last Filed: 07/15/18 08:02> Subjective - Date & Time of Evaluation Date of Evaluation: 07/15/18 Time of Evaluation: 08:01 - Subjective Subjective: Surgery Progress Note for Dr. Omer 78M seen and evaluated at bedside this morning with family. Patient terminally extubated yesterday. Currently tachycardic. Brain perfusion scan shows no flow, confirming brain . Patient now DNR/DNI. ROS unobtainable at this time. Objective - Vital Signs/Intake and Output Vital Signs (last 24 hours): Temp Pulse Resp BP Pulse Ox 98.4 F 148 H 18 128/79 99 07/15/18 07:37 07/15/18 07:37 07/15/18 07:37 07/15/18 07:37 07/15/18 07:37 Intake and Output: 07/15/18 07/15/18 06:59 18:59 Intake Total 184 Balance 184 - Medications Medications: Current Medications Acetaminophen (Tylenol 650mg/20.3ml Solution Ud) 650 mg PO Q6 PRN PRN Reason: fever Enoxaparin Sodium (Lovenox) 30 mg SC DAILY ANTONY; Protocol Last Admin: 07/08/18 09:10 Dose: 30 mg Piperacillin Sod/Tazobactam (Sod 2.25 gm/ Sodium Chloride) 100 mls @ 100 mls/hr IVPB Q12 ANTONY; Protocol Last Admin: 07/15/18 01:10 Dose: Not Given Meropenem 500 mg/ Sodium (Chloride) 100 mls @ 100 mls/hr IVPB Q12H ANTONY; Protocol Last Admin: 07/15/18 02:41 Dose: Not Given Diltiazem HCl 125 mg/ Sodium (Chloride) 125 mls @ 5 mls/hr IV .Q24H ONE; Protocol Stop: 07/15/18 10:45 Last Admin: 07/14/18 18:38 Dose: Not Given Morphine Sulfate 100 mg/ (Sodium Chloride) 100 mls @ 2 mls/hr IV .Q24H ANTONY; Protocol Last Admin: 07/15/18 05:18 Dose: 2 mls/hr Insulin Human Lispro (Humalog) 0 units SC ACHS ANTONY; Protocol Last Admin: 07/15/18 01:09 Dose: Not Given Ipratropium [place] (Atrovent) 0.5 mg IH RQ6 ANTONY Last Admin: 07/15/18 07:38 Dose: Not Given Latanoprost (Xalatan Opht) 1 drop OD HS ANTONY Last Admin: 07/15/18 01:10 Dose: Not Given Ondansetron HCl (Zofran Inj) 4 mg IVP Q6 PRN PRN Reason: Nausea/Vomiting Pantoprazole Sodium (Protonix Inj) 40 mg IVP DAILY [facility] Last Admin: 07/14/18 08:53 Dose: 40 mg - Labs Labs: 07/15/18 04:40 07/15/18 04:40 PT 16.1 Seconds (9.8-13.1) H 07/12/18 04:27 INR 1.4 07/12/18 04:27 APTT 35.2 Seconds (25.6-37.1) 07/12/18 04:27 - Eye Exam Pupil Exam: Fixed - ENT Exam ENT Exam: Mucous Membranes Dry - Cardiovascular Exam Cardiovascular Exam: Tachycardia - Neurological Exam Neurological Exam: absent: Awake Assessment and Plan - Assessment and Plan (Free Text) Assessment: 78M who is s/p lap ana maria with IOC POD8 s/p cardiac arrest, confirmed brain Plan: Patient DNR/DNI Terminally Extubated - GCS 3T Brain flow scan has confirmed brain Medical management as per ICU Further recommendations as per Dr. Kan [place] PGY1 <Ge Omer - Last Filed: 07/15/18 11:02> Objective - Vital Signs/Intake and Output Vital Signs (last 24 hours): Temp Pulse Resp BP Pulse Ox 98.4 F 160 H 18 128/79 99 07/15/18 07:37 07/15/18 08:00 07/15/18 07:37 07/15/18 07:37 07/15/18 07:37 Intake and Output: 07/15/18 07/15/18 06:59 18:59 Intake Total 184 0 Balance 184 0 - Medications Medications: Current Medications Morphine Sulfate 100 mg/ (Sodium Chloride) 100 mls @ 2 mls/hr IV .Q24H ANTONY; Protocol Last Admin: 07/15/18 05:18 Dose: 2 mls/hr - Labs Labs: 07/15/18 04:40 07/15/18 04:40 PT 16.1 Seconds (9.8-13.1) H 07/12/18 04:27 INR 1.4 07/12/18 04:27 APTT 35.2 Seconds (25.6-37.1) 07/12/18 04:27
[2018-07-15 09:05] LABS: BANDS 1 % (0-2); EOSINOPHIL 1 % (0-7); LYMPHOCYTE 3 % (20-50); METAMYELOCYTE 1 % (0-0); MONOCYTE 5 % (0-10); MYELOCYTE 3 % (0-0); NEUTROPHIL 85 % (42-75); NUCLEATED RED BLOOD CELL 4 % (0-0); REACTIVE LYMPHOCYTES 1 % (0-0); TOTAL CELLS COUNTED 100
[2018-07-15 09:07] LABS: ANISOCYTOSIS SLIGHT; MICROCYTOSIS SLIGHT; PLATELET ESTIMATE SLIGHTLY DECREASED (NORMAL); POIKILOCYTOSIS SLIGHT
[2018-07-15 09:08] LABS: BURR CELLS SLIGHT; GIANT PLATELETS PRESENT; LARGE PLATELETS PRESENT; SCHISTOCYTES SLIGHT; TEARDROP CELLS SLIGHT
[2018-07-15 09:09] LABS: SPHEROCYTES SLIGHT
--- NOTE | 2018-07-15 10:33 | CP.PCM.PN ---
Subjective - Date & Time of Evaluation Date of Evaluation: 07/15/18 Time of Evaluation: 09:50 - Subjective Subjective: Patient was electively extubated yesterday after a nuclear brain scan revealed no evidence of blood flow(and brain ) The patient's family is in agreement with this line of management. The patient at this point is on comfort care only. Overnight he has been peaceful and any further monitoring of vital signs or labs has been discontinued. I spoke with the patient's family at length regarding his condition and the irreversibility of his brain injury. All the relevant questions were answered. Objective - Vital Signs/Intake and Output Vital Signs (last 24 hours): Temp Pulse Resp BP Pulse Ox 98.4 F 160 H 18 128/79 99 07/15/18 07:37 07/15/18 08:00 07/15/18 07:37 07/15/18 07:37 07/15/18 07:37 Intake and Output: 07/15/18 07/15/18 06:59 18:59 Intake Total 184 0 Balance 184 0 - Medications Medications: Current Medications Morphine Sulfate 100 mg/ (Sodium Chloride) 100 mls @ 2 mls/hr IV .Q24H [facility]; Protocol Last Admin: 07/15/18 05:18 Dose: 2 mls/hr - Labs Labs: 07/15/18 04:40 07/15/18 04:40 PT 16.1 Seconds (9.8-13.1) H 07/12/18 04:27 INR 1.4 07/12/18 04:27 APTT 35.2 Seconds (25.6-37.1) 07/12/18 04:27
[2018-07-16 03:50] VITALS: RESP 8
[2018-07-16 05:19] VITALS: PULSE 126; TEMP 99.7; O2SAT 94
--- NOTE | 2018-07-16 07:17 | CP.PCM.PRO ---
Pronouncement of Note - Clinical Findings Physical Exam: No Response Verbal/Painful Stimuli, Absent Peripheral Puls es{Carotid & Femoral}, Absent Heart & Breath Sounds, Absence of Vital Signs - Pronouncement Time Time of Pronouncement of : 07:01 - Notifications Pronouncement Notifications: Family Notified Supervisor Liquefaction Notified: No - Autopsy Autopsy Requested: No - [place]: [id number]
--- NOTE | 2018-07-16 08:56 | CP.PCM.DIS ---
Provider - Provider Date of Admission: 07/04/18 05:11 Attending physician: Guillermo Onofre MD Primary care physician: Guillermo Onofre MD Consults: 07/04/18 05:23 Surgical [General Surgery Consult] Stat Comment: Consulting Provider: Mikel Kerns Consulting Physician: Mikel Kerns Reason for Consult: acute cholecystitis 07/08/18 08:18 Physician Consult Routine Comment: ICU evaluation Consulting Provider: Sean Dunn Consulting Physician: Sean Dunn Reason for Consult: ICU evaluation 07/10/18 09:15 Pulmonology Consult Routine Comment: Eval and treat Consulting Provider: Jeffery Marshall Consulting Physician: Jeffery Marshall Reason for Consult: Cardio resp arrest with Vent support 07/10/18 09:17 Neurology Consult Routine Comment: Eval and treat Consulting Provider: Leia Daley Consulting Physician: Leia Daley Reason for Consult: Anoxic encephalopathy following cardioresp arrest 07/10/18 09:40 Infectious Disease Consult Routine Comment: Consulting Provider: Nick Lawrence Consulting Physician: Nick Lawrence Reason for Consult: HCAP 07/11/18 09:42 Nephrology Consult Routine Comment: Eval and treat Consulting Provider: Phong Castillo Consulting Physician: Phong Castillo Reason for Consult: APURVA 07/13/18 15:00 Respiratory Therapy Consult Routine Comment: Consulting Provider: Chapo Mejia Physician Instructions: Reason For Exam: pull back ETT 1 cm Time Spent in preparation of Discharge (in minutes): 45 Hospital Course - Lab Results Lab Results: Micro Results 07/10/18 13:10 Blood-Venous Blood Culture - Final NO GROWTH AFTER 5 DAYS 07/10/18 13:10 Blood-Venous Gram Stain - Final TEST NOT PERFORMED 07/10/18 13:00 Blood-Venous Blood Culture - Final NO GROWTH AFTER 5 DAYS 07/10/18 13:00 Blood-Venous Gram Stain - Final TEST NOT PERFORMED 07/14/18 10:02 Trachasp Gram Stain - Final 07/10/18 14:34 Sputum Induced Gram Stain - Final 07/10/18 14:34 Sputum Induced Sputum Culture - Final Yeast Species 07/10/18 14:35 Urine,Villa Urine Culture - Final No Growth (<1,000 CFU/ML) 07/08/18 18:09 Naris MRSA Culture (Admit) - Final MRSA NOT DETECTED Most Recent Lab Values WBC 19.9 K/uL (4.8-10.8) H 07/15/18 04:40 RBC 3.04 Mil/uL (4.40-5.90) L 07/15/18 04:40 Hgb 9.3 g/dL (12.0-18.0) L 07/15/18 04:40 Hct 27.6 % (35.0-51.0) L 07/15/18 04:40 MCV 90.8 fl (80.0-94.0) 07/15/18 04:40 MCH 30.5 pg (27.0-31.0) 07/15/18 04:40 MCHC 33.6 g/dL (33.0-37.0) 07/15/18 04:40 RDW 17.4 % (11.5-14.5) H 07/15/18 04:40 Plt Count 101 K/uL (130-400) L 07/15/18 04:40 MPV 8.5 fl (7.2-11.7) 07/15/18 04:40 Neut % (Auto) 89.5 % (50.0-75.0) H 07/15/18 04:40 Lymph % (Auto) 4.4 % (20.0-40.0) L 07/15/18 04:40 [place] % (Auto) 4.4 % (0.0-10.0) 07/15/18 04:40 Eos % (Auto) 1.5 % (0.0-4.0) 07/15/18 04:40 Baso % (Auto) 0.2 % (0.0-2.0) 07/15/18 04:40 Neut # (Auto) 17.8 K/uL (1.8-7.0) H 07/15/18 04:40 Lymph # (Auto) 0.9 K/uL (1.0-4.3) L 07/15/18 04:40 [place] # (Auto) 0.9 K/uL (0.0-0.8) H 07/15/18 04:40 Eos # (Auto) 0.3 K/uL (0.0-0.7) 07/15/18 04:40 Baso # (Auto) 0.0 K/uL (0.0-0.2) 07/15/18 04:40 Total Counted Cancelled 07/11/18 04:10 Neutrophils % (Manual) 85 % (42-75) H 07/15/18 04:40 Band Neutrophils % 1 % (0-2) 07/15/18 04:40 Lymphocytes % (Manual) 3 % (20-50) L 07/15/18 04:40 Reactive Lymphs % 1 % (0-0) H 07/15/18 04:40 Monocytes % (Manual) 5 % (0-10) 07/15/18 04:40 Eosinophils % (Manual) 1 % (0-7) 07/15/18 04:40 Basophils % (Manual) 1 % (0-2) 07/08/18 04:50 Metamyelocytes % 1 % (0-0) H 07/15/18 04:40 Myelocytes % 3 % (0-0) H 07/15/18 04:40 Promyelocytes % Cancelled 07/11/18 04:10 Blast Cells % Cancelled 07/11/18 04:10 Plasma Cell % (Manual) Cancelled 07/11/18 04:10 Nucleated RBC % 4 % (0-0) H 07/15/18 04:40 Hypersegmented Polys Cancelled 07/11/18 04:10 Smudge Cells Cancelled 07/11/18 04:10 Toxic Granulation Present 07/08/18 04:50 Dohle Bodies Cancelled 07/11/18 04:10 Jose Rods Cancelled 07/11/18 04:10 Platelet Estimate Slightly decreased (NORMAL) L 07/15/18 04:40 Plt Clumps, EDTA Cancelled 07/11/18 04:10 Large Platelets Present 07/15/18 04:40 Giant Platelets Present 07/15/18 04:40 RBC Morphology Normal (NORMAL) 07/04/18 01:54 Polychromasia Slight 07/10/18 09:45 Hypochromasia (manual) Moderate 07/12/18 04:27 Poikilocytosis (manual Slight 07/15/18 04:40 Basophilic Stippling Cancelled 07/11/18 04:10 Anisocytosis (manual) Slight 07/15/18 04:40 Microcytosis (manual) Slight 07/15/18 04:40 Macrocytosis (manual) Slight 07/15/18 04:40 Spherocytes Slight 07/15/18 04:40 Sickle Cells Cancelled 07/11/18 04:10 Target Cells Cancelled 07/11/18 04:10 Tear Drop Cells Slight 07/15/18 04:40 Ovalocytes Slight 07/12/18 04:27 Stomatocytes Cancelled 07/11/18 04:10 Helmet Cells Cancelled 07/11/18 04:10 [place] Bodies Cancelled 07/11/18 04:10 Sindi Cells Slight 07/15/18 04:40 Acanthocytes (Spur) Slight 07/15/18 04:40 Rouleaux Cancelled 07/11/18 04:10 Schistocytes Slight 07/15/18 04:40 PT 16.1 Seconds (9.8-13.1) H 07/12/18 04:27 INR 1.4 07/12/18 04:27 APTT 35.2 Seconds (25.6-37.1) 07/12/18 04:27 pCO2 21 mm/Hg (35-45) L 07/14/18 05:08 pO2 185 mm/Hg (80-100) H 07/14/18 05:08 HCO3 17.7 mmol/L (21-28) L 07/14/18 05:08 ABG pH 7.42 (7.35-7.45) 07/14/18 05:08 ABG Total CO2 14.2 mmol/L (22-28) L 07/14/18 05:08 ABG O2 Saturation 100.3 % (95-98) H 07/14/18 05:08 ABG O2 Content 13.7 ML/dL (15-23) L 07/14/18 05:08 ABG Base Excess -9.3 mmol/L (-2.0-3.0) L 07/14/18 05:08 ABG Hemoglobin 9.7 g/dL (11.7-17.4) L 07/14/18 05:08 ABG Carboxyhemoglobin 1.7 % (0.5-1.5) H 07/14/18 05:08 POC ABG HHb (Measured) -0.3 % (0.0-5.0) L 07/14/18 05:08 ABG Methemoglobin 1.2 % (0.0-3.0) 07/14/18 05:08 ABG O2 Capacity 13.7 mL/dL (16-24) L 07/14/18 05:08 Van Test Yes 07/14/18 05:08 VBG pH 7.40 (7.32-7.43) 07/10/18 13:05 VBG pCO2 33 mmHg (40-60) L 07/10/18 13:05 VBG HCO3 21.2 mmol/L 07/10/18 13:05 VBG Total CO2 21.4 mmol/L (22-28) L 07/10/18 13:05 VBG O2 Sat (Calc) 73.7 % (40-65) H 07/10/18 13:05 VBG Base Excess -3.6 mmol/L (0.0-2.0) L 07/10/18 13:05 VBG Potassium 3.3 mmol/L (3.6-5.2) L 07/10/18 13:05 A-a O2 Difference 74.0 mm/Hg 07/14/18 05:08 Hgb O2 Saturation 97.4 % (95.0-98.0) 07/14/18 05:08 Sodium 140.0 mmol/L (132-148) 07/10/18 13:05 Chloride 107.0 mmol/L (98-107) 07/10/18 13:05 Glucose 232 mg/dL (75-110) H 07/10/18 13:05 Lactate 5.7 mmol/L (0.7-2.1) H* 07/10/18 13:05 Vent Mode A/c 07/14/18 05:08 Mechanical Rate 12 07/14/18 05:08 FiO2 40.0 % 07/14/18 05:08 Tidal Volume 450 07/14/18 05:08 PEEP 5 07/14/18 05:08 Crit Value Called To Irma dawn 07/10/18 13:05 Crit Value Called By 07/10/18 13:05 Crit Value Read Back Y 07/10/18 13:05 Blood Gas Notified Time 1315 07/10/18 13:05 Sodium 146 mmol/l (132-148) 07/15/18 04:40 Potassium 4.7 MMOL/L (3.6-5.0) 07/15/18 04:40 Chloride 113 mmol/L (98-107) H 07/15/18 04:40 Carbon Dioxide 15 mmol/L (22-30) L 07/15/18 04:40 Anion Gap 23 (10-20) H 07/15/18 04:40 BUN 123 mg/dl (9-20) H* D 07/15/18 04:40 Creatinine 7.4 mg/dl (0.8-1.5) H* 07/15/18 04:40 Est GFR ( Amer) 9 07/15/18 04:40 Est GFR (Non-Af Amer) 7 07/15/18 04:40 POC Glucose (mg/dL) 145 mg/dL (65-110) H 07/14/18 07:00 Random Glucose 134 mg/dL (75-110) H 07/15/18 04:40 Lactic Acid 3.0 mmol/L (0.7-2.1) H 07/10/18 17:25 Calcium 7.8 mg/dL (8.4-10.2) L 07/15/18 04:40 Phosphorus 5.4 mg/dl (2.5-4.5) H 07/12/18 04:27 Magnesium 1.8 MG/DL (1.6-2.3) 07/12/18 04:27 Total Bilirubin 2.1 mg/dl (0.2-1.3) H 07/15/18 04:40 AST 100 U/L (17-59) H D 07/15/18 04:40 ALT 134 U/L (21-72) H D 07/15/18 04:40 Alkaline Phosphatase 90 U/L (38-126) 07/15/18 04:40 Troponin I 1.4400 ng/mL (0.00-0.120) H* 07/10/18 10:45 Total Protein 6.3 G/DL (6.3-8.2) 07/15/18 04:40 Albumin 2.7 g/dL (3.5-5.0) L 07/15/18 04:40 Globulin 3.6 gm/dL (2.2-3.9) 07/15/18 04:40 Albumin/Globulin Ratio 0.8 (1.0-2.1) L 07/15/18 04:40 Lipase 211 U/L (23-300) 07/05/18 09:25 Procalcitonin 3.16 NG/ML (0.19-0.49) H 07/08/18 16:13 Venous Blood Potassium 3.3 mmol/L (3.6-5.2) L 07/10/18 13:05 Urine Color Yellow (YELLOW) 07/10/18 15:34 Urine Clarity Turbid (Clear) 07/10/18 15:34 Urine pH 6.0 (5.0-8.0) 07/10/18 15:34 Ur Specific [place] 1.018 (1.003-1.030) 07/10/18 15:34 Urine Protein >=500 mg/dL (NEGATIVE) 07/10/18 15:34 Urine Glucose (UA) 50 mg/dL (NEGATIVE) 07/10/18 15:34 Urine Ketones Negative mg/dL (NEGATIVE) 07/10/18 15:34 Urine Blood Large (NEGATIVE) 07/10/18 15:34 Urine Nitrate Negative (NEGATIVE) 07/10/18 15:34 Urine Bilirubin Negative (NEGATIVE) 07/10/18 15:34 Urine Urobilinogen 0.2-1.0 mg/dL (0.2-1.0) 07/10/18 15:34 Ur Leukocyte Esterase Large Cornelio/uL (Negative) 07/10/18 15:34 Urine RBC (Auto) 274 /hpf (0-3) H 07/10/18 15:34 Urine WBC Clumps (Auto) Few /hpf (NONE) H 07/04/18 04:35 Urine Microscopic WBC 316 /hpf (0-5) H 07/10/18 15:34 Ur Squamous Epith Cells 3 /hpf (0-5) 07/10/18 15:34 Urine Bacteria Occ (<OCC) H 07/10/18 15:34 Hyaline Casts 6-10 /hpf (0-2) H 07/04/18 04:35 Urine Osmolality 303 mosm/kg (300-1000) 07/11/18 11:40 Ur Random Creatinine 18.7 mg/dL 07/11/18 11:40 Ur Random Sodium 113 mmol/L 07/11/18 11:40 Ur Random Potassium 45.4 mmol/L 07/10/18 17:25 Stool Occult Blood Positive (NEGATIVE) H 07/10/18 15:00 Blood Type B POSITIVE 07/08/18 06:25 Antibody Screen Negative 07/08/18 06:25 Crossmatch See Detail 07/08/18 06:25 BBK History Checked Patient has bt 07/08/18 06:25 - Hospital Course Hospital Course: This 78-year-old male with a long medical history of hypertension diabetes coronary artery disease which had required coronary bypass graft surgery in 1999 and recently atrial fibrillation with congestive cardiac failure who had required a ventricular pacemaker because of sick sinus syndrome in late April 2018. The patient had been hospitalized in early June with congestive cardiac failure and was treated and sent home. Within hours of going home the patient developed severe abdominal pain and arrived in the emergency room in ticket broker of July 04, 2018. An ultrasound of the gallbladder revealed evidence of cholelithiasis and an inflamed gallbladder. His serum lipase level was 602 units/L and a diagnosis of cholecystitis with cholelithiasis and pancreatitis was made. A surgical evaluation was obtained. The patient was started on intravenous antibiotics and admitted to the floor. The patient remained hemodynamically stable over the next couple of days and an assessment was made that he was in the best medical condition that he could be if he needed cholecystectomy. The pros and cons of this intervention and the risks involved were discussed with the family. He eventually underwent laparoscopic cholecystectomy on July 07, 2018. Postoperatively the patient had persistent tachycardia with atrial fibrillation and was eventually transferred to intensive care unit for closer observation. He remained afebrile and his abdominal discomfort gradually resolved and the patient was started on oral feedings which he tolerated well. In the ticket broker of July 10, patient complained of abdominal pain and became quite restless. The patient developed cardiorespiratory arrest and was urgently revived. And was placed on a ventilator support after endotracheal intubation. A large melanotic bowel movement was detected during resuscitative effort and his hemoglobin which was 8.5 g during the day had dropped to 5.7 g immediately following resuscitation. The patient was given blood transfusions and his hemoglobin improved to 10 g subsequently. On the following days his hemoglobin and hematocrit were stable.Subsequent labs demonstrated ischemic injury to heart in the form of troponin release, ischemic injury to liver in the form of elevat ed AST ALT and a rising BUN/creatinine due to acute tubular necrosis as well as an anoxic encephalopathy. He was seen by a neurologist and extended EEG monitoring was done which revealed severe cerebral dysfunction as a consequence of ischemic injury. Supportive care in the form of adequate oxygenation was provided but no signs of neurological improvement was seen. The patient eventually underwent a radionuclide brain perfusion assay and no evidence of brain perfusion was detected. Accordingly the family was informed of brain . In accordance with their request elective extubation was performed on July 14. The patient eventually on July 16, 2018, at 7:01 AM. Patient's family was at bedside. The final diagnosis was cardiorespiratory arrest secondary to severe GI bleed. Cholelithiasis with cholecystitis with pancreatitis and status post laparoscopic cholecystectomy. Congestive cardiac failure which was left ventricular systolic and chronic with atrial fibrillation. Sick sinus syndrome with status post VVI pacemaker implant. stable coronary artery disease with status post coronary bypass graft surgery. COPD. Hypertension, diabetes mellitus and dyslipidemia CKD stage II-III. Discharge Exam - Head Exam Head Exam: ATRAUMATIC, NORMAL INSPECTION, NORMOCEPHALIC Discharge Plan - Follow Up Plan Condition: FAIR Disposition: HOME/ ROUTINE Referrals: Guillermo Onofre MD [Primary Care Provider] -
--- NOTE | 2018-07-18 08:29 | PQF ---
PROVIDER RESPONSE TEXT: Please send this query to Dr. Wesley to explain his note. REVIEWER QUERY TEXT: Rule Out Sepsis Clarification Sepsis is documented in the Medical Record. Please clarify whether: -- Patient has sepsis - Please document confirmed, suspected or probable causative organism - Please document confirmed, suspected or probable localized infection - Please clarify if sepsis is related to a device - Please clarify if sepsis was present on admission -- Sepsis was ruled out (include corresponding diagnosis for patient?s clinical picture and treatment ) -- Patient had sepsis which is resolved -- Other, please specify The patient's Clinical Indicators include: 07/[address] Wesley documented "sepsis with acute cholecystitis." Query created by: Sadie Davidson on 07/17/2018 1:44 PM Electronically signed by: Guillermo Onofre MD 07/18/2018 8:26 AM
--- NOTE | 2018-07-22 12:19 | PQF ---
PROVIDER RESPONSE TEXT: Patient with sepsis as high WBC count, fever, tachycardia and acute cholecystitis REVIEWER QUERY TEXT: Rule Out Sepsis Clarification Rule out Sepsis is documented in the Medical Record. Please clarify whether: -- Patient has sepsis - Please document confirmed, suspected or probable causative organism - Please document confirmed, suspected or probable localized infection - Please clarify if sepsis is related to a device - Please clarify if sepsis was present on admission -- Sepsis was ruled out (include corresponding diagnosis for patient?s clinical picture and treatment ) -- Patient had sepsis which is resolved -- Other, please specify The patient's Clinical Indicators include: PN 07/12 DR. WESLEY DOCUMENTS "SEPSIS, ACUTE CHOLECYSTITIS". PLEASE CLARIFY IF SEPSIS WAS RULED IN or OU T. Query created by: Saskia Lara on 07/22/2018 9:04 AM Electronically signed by: Torres Wesley MD 07/22/2018 12:15 PM
== END 2018-07-16 07:01 | DRG 417 ==
LOC: H.ER 00:32 → H.ERHOLD 05:11 → H.MEDSURG1 15:50 → H.TEL 20:00 → H.MEDSURG1 20:10 → H.TEL 20:59 → H.ICU/CCU 07-08 10:46
PROVIDERS: ADMIT Internal Medicine Cardiovascular Disease; ATTEND Internal Medicine Cardiovascular Disease
PROC: 0FT44ZZ Resection of Gallbladder, Percutaneous Endoscopic Approach (ICD-10-PCS; 2018-07-07)
PROC: BF13YZZ Fluoroscopy of Gallbladder and Bile Ducts using Other Contrast (ICD-10-PCS; 2018-07-07)
PROC: 30233K1 Transfusion of Nonautologous Frozen Plasma into Peripheral Vein, Percutaneous Approach (ICD-10-PCS; principal; 2018-07-08)
PROC: 30233N1 Transfusion of Nonautologous Red Blood Cells into Peripheral Vein, Percutaneous Approach (ICD-10-PCS; 2018-07-08)
PROC: 06HN33Z Insertion of Infusion Device into Left Femoral Vein, Percutaneous Approach (ICD-10-PCS; 2018-07-10)
PROC: 0BH17EZ Insertion of Endotracheal Airway into Trachea, Via Natural or Artificial Opening (ICD-10-PCS; 2018-07-10)
PROC: 5A1955Z Respiratory Ventilation, Greater than 96 Consecutive Hours (ICD-10-PCS; 2018-07-10)
PROC: 5A12012 Performance of Cardiac Output, Single, Manual (ICD-10-PCS; 2018-07-10)
DX: K80.00 Calculus of gallbladder with acute cholecystitis without obstruction (principal); K85.10 Biliary acute pancreatitis without necrosis or infection; A41.9 Sepsis, unspecified organism; J96.01 Acute respiratory failure with hypoxia; N17.0 Acute kidney failure with tubular necrosis; J18.9 Pneumonia, unspecified organism; I13.0 Hypertensive heart and chronic kidney disease with heart failure and stage 1 through stage 4 chronic kidney disease, or unspecified chronic kidney disease; I50.22 Chronic systolic (congestive) heart failure; D62 Acute posthemorrhagic anemia; I48.92 Unspecified atrial flutter; E87.4 Mixed disorder of acid-base balance; G93.1 Anoxic brain damage, not elsewhere classified; R57.9 Shock, unspecified; Z99.11 Dependence on respirator [ventilator] status; J44.0 Chronic obstructive pulmonary disease with (acute) lower respiratory infection; K92.2 Gastrointestinal hemorrhage, unspecified; N18.3 Chronic kidney disease, stage 3 (moderate); Z95.1 Presence of aortocoronary bypass graft; I25.10 Atherosclerotic heart disease of native coronary artery without angina pectoris; E11.22 Type 2 diabetes mellitus with diabetic chronic kidney disease; E78.00 Pure hypercholesterolemia, unspecified; E78.5 Hyperlipidemia, unspecified; M81.0 Age-related osteoporosis without current pathological fracture; Z95.0 Presence of cardiac pacemaker; Z87.891 Personal history of nicotine dependence; Z79.01 Long term (current) use of anticoagulants; N40.0 Benign prostatic hyperplasia without lower urinary tract symptoms; I48.2 Chronic atrial fibrillation; I48.0 Paroxysmal atrial fibrillation; I46.9 Cardiac arrest, cause unspecified; D69.6 Thrombocytopenia, unspecified; R79.1 Abnormal coagulation profile; Z51.5 Encounter for palliative care; Z66 Do not resuscitate; N43.3 Hydrocele, unspecified; Y95 Nosocomial condition